=== PATIENT | female | born 1975 | race Caucasian/White ===

== ENCOUNTER → 2016-10-22 | Outpatient (CLI) | payer BC ==
[~2016-10-22] MED LIST: ABL10 PO; ACET325T96 PO; ARIP1TAB8 PO; CLC100 PO; CLON0.5T3 PO; DLD2 PO; FERR325T PO; FLUO40CA8 PO; LVNIS60 SQ; MELA3TAB PO; MELATAB2 PO; MRLP17X PO; SULF800T23 PO; WARF4TAB8 PO
--- NOTE | 2016-10-23 06:11 | PAP/PSG TECHNICIAN REPORT ---
[facility] Conche Operator Polysomnogram Report Study name: None Report date: 10/23/2016 Study date: 10/22/2016 Referring Physician: DR. SHER Name: ELINOR PONCE Interpreting Physician: Remigio Carey M.D. Date of : 1975 Conche Operator: Arlin Laboy [facility]. Sex: Female Age: 40 StudyType: PSG Weight: 151 lbs Height: 40 years, Height 5' 0" BMI: 29.49 Medications: List not provided Patient History 40 yr. old female here for a possible split with BiPap and ETC02. Patients has daytime hyper somnolence, , myotonic dystrophy type 1, and non-restorative sleep. Patients [place] sleepiness scale score is 8/24. Parameters Monitored NPSG: E1-M2, E2-M1, Fp1-M2, Fp2-M1, F3-M2, F4-M2, F4-M1, C3-M2, C4-M2, C4-M1, O1-M2, O2-M2, O2-M1, T3-M2, T4-M1, P3-M2, P4-M1, CHIN1, CHIN2, HR, EKG, Legs, PFLOW, SNOR, FLOW, CFLOW, Tidal Volume, THOR, ABDO, SpO2, PLTH, CPRESS, ETCO2 Wave, ETCO2, pH Sleep Architecture Sleep Stages Time at Lights Off 9:55:48 PM STAGES Time (min.) TST (%) Time at Lights On 5:48:48 AM Wake 156.5 -- Total Recording Time (TRT) 473.00 min. N1 41.0 13 Total Sleep Period (TSP) 400.0 min. N2 144.5 46 Total Sleep Time (TST) 316.5min. N3 95.5 30 Awake Time 156.5 min. REM 35.5 11 Wake after Sleep Onset 83.5 min. Sleep Efficiency (SE) 67 % Sleep Onset Latency (RAJESH) 73.0 min. Number of Stage 1 Shifts None Awakenings 22 Stage Changes 99 Number of REM periods 2 REM 35.5 11 REM Latency 313.0 min. NREM 281.0 89 Body Position Analysis Supine Right Left Side Prone Vertical Total Sleep Time (min.) 213.9 72.5 143.0 215.50 0.0 0.0 Total Sleep Time (%) 32% 23% 45% 68 0% N/A% Total Sleep Time REM (min.) 0.0 35.5 0.0 None 0.0 0.0 Total Sleep Time NREM (min.) 101.0 37.0 143.0 None 0.0 0.0 Intermittent Wake (min.) 112.9 0.9 42.6 None 0.0 0.0 Total Sleep Period (%) 37% None None None None None Arousals Myoclonus (PLM) * Events Count Index Events Count Index Spontaneous 9 2 Events Awake (PLMW) 67 25.7 Respiratory 1 0.2 Events Asleep w/ Arousal (PLMA) 12 2.3 PLM 11 2 Events Asleep w/o Arousal (PLMS) 120 22.7 Snoring 7 1 Total Asleep 132 25.0 Total 28 5 Total 199 25 Respiratory Analysis * CA OA MA CH H RERA Total Count 0 0 0 0 11 0 11 Index 0.0 0.0 0.0 0 2.1 0 2.1 Mean Duration 0.0 0.0 0.0 0.00 25.2 0.0 25.2 Longest Duration 0.0 0.0 0.0 0.00 0.0 0.0 45.5 Respiratory Event Summary Total Supine ~Supine Right Left Prone REM NREM Apneas Count 0 0 0 0 0 N/A 0 0 Index 0.0 0 0 0.0 0.0 N/A 0 0 Hypopneas (4% Desat) Count 11 1 10 0 10 N/A 0 11 Index 2.1 0.6 3 0.0 4.2 N/A 0.0 2.3 Apneas & All Hypopneas Count 11 1 10 0 10 N/A 0 11 Index 2.1 1 3 0 4 N/A 0.0 2.3 Respiratory Events (Railroad Brake Operator+All Hyp+RERA) Count 11 1 10 0 10 N/A 0 11 Index 2.1 1 3 0.0 4.2 N/A 0.0 2.3 Respiratory Related Arousal Count 1 1 1 0 1 N/A 0 1 Index 0.2 0 0 0 0 N/A 0 0 Snoring Analysis Supine Right Left Prone REM NREM Total Snore duration 2.7 min Snores count 46 7 24 N/A 2 75 77 Snore mean duration 2.1 Sec Snores index 27 6 10 N/A 3.4 16.0 14.6 TST with snoring (%) 0.8% SpO2 Analysis Total REM NREM Awake <50% 0.0 min. 0.0 min. 0.0 min. 0.0 min. 51 - 60% 0.0 min. 0.0 min. 0.0 min. 0.0 min. 61 - 70% 0.0 min. 0.0 min. 0.0 min. 0.0 min. 71 - 80% 0.2 min. 0.0 min. 0.0 min. 0.2 min. 81 - 90% 420.0 min. 35.5 min. 271.3 min. 113.3 min. 91 - 100% 47.1 min. 0.0 min. 9.8 min. 37.3 min. Average 88 86 88 89 Minimum SpO2 77 83 84 77 Desaturation Event Index 9.3 3.4 5.3 18.4 # Desat. Events below 89% 54 2 24 28 Time(%) with Saturation below 89% 66.0 7.6 42.4 16.1 Time(min.) with Saturation below 89% 308.5 35.5 198.0 75.0 Heart Rate Analysis End Tidal CO2 Analysis Min (bpm) Max (bpm) Average (bpm) TSP (mins) % of TSP Awake 46 265 58 Above 55 mmHg 0.0 0.0 NREM 43 62 50 50-55 mmHg 0.0 0.0 REM 49 63 55 45-50 mmHg 118.0 37.3 Overall 43 63 51 40-45 mmHg 105.8 33.4 35-40 mmHg 40.0 12.6 30-35 mmHg 42.7 13.5 Average ETCO2 0.1 Supplemental O2 Values Minimum O2 level: None Value Start Time End Time Conche Operator Comments MS. Ponce did not qualify for a split night sleep study. MS. Ponce slept in the right, left, and supine positions. No cardiac arrhythmia. PLMs noted. No bruxism noted. Snoring was noted and scored as a 1 on a scale of 0 through 5. (0=no snoring, 5=snoring loud enough to be heard through a closed door or down the [address] way)MS. Ponce awoke to use the restroom once during the night. MS. Ponce stated,I did not sleep well, I felt nauseated. The final report will be interpreted and signed by a sleep physician. The completed physician report will then be placed in the patient medical record. Therapy (cm H2O) 0 TIB (min.) 473.0 TST (min.) 316.5 Sleep Onset (min.) 73.0 REM Onset From Sleep (min.) 313.0 Sleep Efficiency % 67 Wakefulness (%) 33 Wakefulness (min.) 156.5 NREM 1 (%) 13 NREM 1 (min.) 41.0 NREM 2 (%) 46 NREM 2 (min.) 144.5 NREM 3 (%) 30 NREM 3 (min.) 95.5 REM (%) 11 REM (min.) 35.5 # Arousals 28 Arousal Index 5 # Snore 77 Snore Index 14.6 AHI 2.1 AHI Supine 1 AHI Non-Supine 3 NREM AHI 2.3 REM AHI 0.0 RDI 2.1 # Obstructive Apnea 0 # Central Apnea 0 # Mixed Apnea 0 # Hypopneas 11 RERAs 0 Total Respiratory Events 13 Time Below SpO2 89% (min.) 233.5 Mean NREM SpO2 (%) 88 Mean REM SpO2 (%) 86 Mean Sleep SpO2 (%) 88 Min NREM SpO2 (%) 84 Min REM SpO2 (%) 83 Position Supine (min.) 213.9 Position Non-supine (min.) 215.5 LM Index Sleep 25.0 LM Index NREM 25.2 LM Index REM 23.7 Mean Heart Rate (bpm) 51 Min Heart Rate (bpm) 43
--- NOTE | 2016-10-24 02:52 | POLYSOMNOGRAPH REPORT ---
CLINICAL DATA: A 40-year-old female with a BMI of 29.5, referred by Dr. Smith, her neurologist, for evaluation of daytime hypersomnolence. 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 SLEEP ARCHITECTURE: Total sleep period was 400 minutes. Total sleep time was 316.5 minutes divided between 281.5 minutes of non-REM sleep and 35.5 minutes of REM sleep. Sleep onset latency was 73 minutes. REM latency was delayed at 313 minutes. Sleep efficiency was reduced at 67%. Wake after sleep onset was elevated at 83.5 minutes. Sleep consisted of stage N1 13%, N2 46%, N3 30%, REM 11%. AROUSAL DATA: 28 arousals were recorded for an index of 5 per hour. PLM DATA: 132 limb movements during sleep were noted for an index of 25 per hour with arousal index of 3.3 per hour. RESPIRATORY DATA: There was no evidence of clinically significant sleep apnea/hypopnea. The AHI was 2.1. There were 11 hypopneic episodes. The mean duration of hypopnea was 25.2 seconds. OXIMETRY DATA: Nocturnal hypoxemia was seen. Oxygen roxann was 83% during REM sleep. Mean saturation for the entire study was 88%. EKG: Heart rates ranged from 43-63 beats per minute. No arrhythmias were noted. END-TIDAL CO2 ANALYSIS: The patient's end-tidal CO2 was between 45 and 50 mmHg for 37.3% of the study. It was not noted to be above 50 mmHg. SPECIALTY PLANT SUPERVISOR'S COMMENTS: The patient slept in the right, left and supine positions. Snoring was mild rated 1 on a scale of 1 through 5. The patient stated she did not sleep well and felt nauseated throughout the night. IMPRESSION: 1. No evidence of clinically significant sleep apnea/hypopnea. 2. Nocturnal hypoxemia was seen. 3. Mildly elevated end-tidal CO2 for a portion of the night. RECOMMENDATIONS: The patient should continue to practice good sleep hygiene. Low-flow oxygen at night may be of benefit. If it is felt that the patient's muscular dystrophy is causing her enough issues that she might consider use of BiPAP, then a sleep study with BiPAP could be considered. [facility]
== END | disposition home or self-care (01) ==
LOC: C.NEUR 21:00
PROVIDERS: ATTEND Psychiatry & Neurology Neurology
DX: G71.11 Myotonic muscular dystrophy (principal); G47.19 Other hypersomnia; R06.89 Other abnormalities of breathing; R09.02 Hypoxemia

== ENCOUNTER 2017-01-12 15:50 | Inpatient (IN) | payer BC ==
[~2017-01-12] VITALS: Ht 144.8 cm; Wt 64.6 kg
[~2017-01-12 15:50] MED LIST changes: -CLC100 PO; -DLD2 PO; +FERR1TAB62 PO; -FERR325T PO; -LVNIS60 SQ; -MELATAB2 PO; -MRLP17X PO; -SULF800T23 PO; -WARF4TAB8 PO
[2017-01-12] MEDS ORDERED: SODIUM CHLORIDE 0.9% 1000ML 1,000 ML IV STA (16:24)
[2017-01-12] MEDS ORDERED: ONDANSETRON INJ 2 MG/ML 2 ML VIAL IV STA ×2 (16:24→18:02)
[2017-01-12] MEDS ORDERED: MoRPHine SULFATE 4 MG/ML 1 ML CARP\\VIAL IV PRN (16:30)
[2017-01-12 16:48] LABS: ALT/SGPT 22 U/L (12-78); BLOOD UREA NITROGEN 6 mg/dl (7-18); BUN/CREATININE RATIO 9.7 (10-20); CALCIUM 9.7 mg/dl (8.5-10.1); CARBON DIOXIDE 25 mmol/L (21-32); CHLORIDE 114 mmol/L (98-107); CREATININE 0.66 mg/dl (0.60-1.20); GLUCOSE 84 mg/dl (70-99); POTASSIUM 4.4 mmol/L (3.5-5.1); SODIUM 145 mmol/L (136-145)
[2017-01-12 16:51] LABS: ALKALINE PHOSPHATASE 103 U/L (45-117); AST/SGOT 15 U/L (15-37)
[2017-01-12 16:56] LABS: URINE APPEARANCE CLEAR (CLEAR); URINE BILIRUBIN NEG (NEG); URINE COLOR YELLOW; URINE NITRITE NEG (NEG); URINE PH >= 9.0 (4.5-7.5); URINE SPECIFIC GRAVITY 1.006 (1.000-1.030); UROBILINOGEN NEG (NEG)
[2017-01-12 17:02] LABS: PREG INTERNAL NEGATIVE QC NEG CLEAR BACKGROUND; PREG INTERNAL POSITIVE QC POS CONTROL LINE
[2017-01-12 17:05] LABS: MANUAL MICROSCOPIC REQUIRED? NO; REVIEW REQ? NO
[2017-01-12 17:13] LABS: BASO % 0.5 %; BASO ABS # 0.02 K/uL (0-0.2); COMPLETE YES; EOS % 9.7 %; HEMATOCRIT 36.8 % (37-47); IG% 0.2 %; LARGE PLATELETS 2+; LYMPH % 30.3 %; LYMPH ABS # 1.31 K/uL (1.2-3.4); MEAN CELL VOLUME 89.1 fL (80-100); MEAN CORPUSCULAR HGB CONC 33.7 g/dl (32-36); MEAN PLATELET VOLUME 12.8 fL (7.4-10.4); MONO % 5.8 %; NEUT % 53.5 %; PLATELET COUNT 115 K/uL (130-400); PLT ESTIMATE DECREASED; RED BLOOD COUNT 4.13 M/uL (4.2-5.4); WHITE BLOOD COUNT 4.32 K/uL (4.8-10.8)
[2017-01-12] MEDS ORDERED: OPTIRAY 320 IV PRN (17:45)
[2017-01-12] MEDS ORDERED: MoRPHine SULFATE 10 MG/ML CARP/VIAL IV STA ×2 (18:02→19:37)
--- NOTE | 2017-01-12 19:16 | DIAGNOSTIC IMAGING REPORT ---
ABDOMEN AND PELVIS CT WITH IV AND ORAL CONTRAST CT DOSE: 266.64 mGy.cm HISTORY: Pain ABDOMINAL PAIN/GI TECHNIQUE: Multiaxial CT images of the abdomen and pelvis were performed following the use of intravenous and oral contrast. COMPARISON STUDY: 10/31/2013 FINDINGS: Lung bases are clear. Liver spleen and pancreas are unremarkable. There has been an interval cholecystectomy. The adrenal glands are normal. The kidneys enhance uniformly. Bowel pattern is nonobstructive. The appendix is normal. Bladder is moderately distended. Superior to the bladder is a large cystic lesion measuring 13 x 12 cm. This potentially is related to the left ovary although this cannot be confirmed. Possibility of an ovarian cystic neoplastic process must be considered. There is no significant andrea pathology. Osseous structures are unremarkable. Inguinal regions are unremarkable. IMPRESSION: 1. 13 x 12 cm cystic lesion immediately superior to the bladder. 2. Diagnostic considerations must include cystic ovarian neoplastic process versus large ovarian simple cyst,. 3. No significant andrea pathology. 4. BLACK LEATHER TRIMMER consultation is recommended. 5. Normal appendix. 6. Nonobstructive bowel pattern. Electronically signed by: Casper Bray M.D. 01/12/2017 7:14 PM Dictated Date/Time: 01/12/2017 7:06 PM
[2017-01-12] MEDS ORDERED: METOCLOPRAMIDE HCL INJ 5 MG/ML 2 ML VIAL IV STA (19:37)
--- NOTE | 2017-01-12 20:49 | DIAGNOSTIC IMAGING REPORT ---
EXAMINATION: PELVIC ULTRASOUND CLINICAL HISTORY: pelvic mass ABNORMAL CT EXAM COMPARISON STUDY: CT same date FINDINGS: The uterus measured 8.4 cm. The endometrial stripe measured 11 mm. The right ovary measured 2.9 cm with normal vascular flow. The left ovary measured not identified. 13 x 9 cm cystic mass superior to the bladder. This potentially relates to the left ovary as a left ovary is not well seen. There was no evidence of pathologic free pelvic fluid. IMPRESSION: 13 x 9 cm cystic mass superior to the bladder. This may relate to the left ovary as a left ovary is not identified as a separate entity. Differential considerations remain a large ovarian cyst versus cystic neoplastic process. Electronically signed by: Casper Bray M.D. 01/12/2017 8:47 PM Dictated Date/Time: 01/12/2017 8:44 PM
[2017-01-13] MEDS ORDERED: MAGNESIUM HYDROXIDE SUSP 30 ML UDC PO PRN
[2017-01-13] MEDS ORDERED: ACETAMINOPHEN 325 MG TAB PO PRN
[2017-01-13] MEDS ORDERED: ZOLPIDEM TARTRATE 5 MG TAB PO PRN
[2017-01-13] MEDS ORDERED: ALUMINUM/MAGNESIUM/SIMETH (MAALOX MAX) 30 ML UDC PO PRN
[2017-01-13] MEDS ORDERED: ONDANSETRON INJ 2 MG/ML 2 ML VIAL IV PRN
--- NOTE | 2017-01-13 00:38 | EMERGENCY ROOM VISIT NOTE ---
ED Visit Note First contact with patient: 16:00 Chief Complaint: Abdominal pain and vomiting. History of Present Illness: Ms. Davidson is a 41 year-old white female who ambulates into the ED complaining of nausea, vomiting and diffuse abdominal pain. Historically patient reports reports she is status post cholecystectomy and has a history of GERD Patient reports a acute onset of diffuse abdominal pain that started approximately 4 days ago. She reports the pain and the associated vomiting was constant for 2 days then resolved for 2 days and started again this morning. She describes her pain as a sharp and crampy sensation in the mid abdomen just superior to the umbilicus. She denies true radiation of her discomfort but does report intermittently she gets a burning discomfort from the epigastrium into the back of the throat. She currently rates her discomfort 7/10. Her pain worsens with eating and drinking. She has not identified any alleviating factors related to the pain. She has attempted to take ibuprofen without relief of her discomfort. Associated with her discomfort she reports she's had multiple episodes of bilious vomiting and multiple episodes of light brown watery stools with a few pieces of formed stool. She denies fevers, chills, sweats, skin eruptions, skin color changes, upper respiratory tract symptoms, shortness of breath, chest pain, constipation, rectal bleeding, black/tarry stools, urinary symptoms, hematuria, vaginal bleeding, vaginal discharge, back/ flank pain recent antibiotic use or recent travel outside the [place]. Review of Systems: As noted above in history of present illness. All body systems were reviewed and found to be negative as noted above. Past Medical History: As noted above and pneumonia, DVT, unspecified urinary problems, myotonic muscular dystrophy, factor V Leiden disorder, bulimia, depression, and status post cataract surgery, tonsillectomy, adenoidectomy. Current Medications: Medications Dose Route/Sig Max Daily Dose Days Date Category Dose Instructions Melatonin Maximum Strengt (Melatonin) 5 Mg Tab 1 Tab PO HS 30 01/12/17 Reported Jantoven (Warfarin Sodium) 4 Mg Tab 8 Mg PO 4XWK 12/29/15 Reported THURSDAY, THURSDAY, THURSDAY, THURSDAY. Jantoven (Warfarin Sodium) 4 Mg Tab 12 Mg PO 3XWK 12/29/15 Reported THURSDAY, THURSDAY, THURSDAY Tylenol (Acetaminophen) 325 Mg Tab 650 Mg PO UD 12/03/15 Reported Prozac (Fluoxetine HCl) 40 Mg Cap 40 Mg PO QAM 09/26/15 Reported Allergies to Medications: Hydrocodone, penicillin. Social History: Patient is currently employed; she lives with her and feels safe in her home environment; she denies tobacco use and admits to social alcohol use. Physical Examination: Vital Signs: Date Time Temp Pulse Resp B/P Pulse Ox O2 Delivery O2 Flow Rate FiO2 01/12/17 19:54 65 16 107/68 100 Room Air 01/12/17 18:08 58 16 113/71 100 Room Air 01/12/17 16:32 72 16 103/65 100 60 93/67 73 91/71 01/12/17 15:55 36.9 55 18 117/71 99 Room Air GENERAL: 41-year-old female in mild to moderate distress due to pain, nontoxic- appearing, afebrile and hemodynamically stable. NEUROLOGICAL: Awake, alert and oriented to person, place and time. Answering questions appropriately and following commands. Normal gait. Good hand eye coordination. SKIN: Warm, dry and pink. No soft tissue eruptions or trauma noted. HEENT: Atraumatic and normocephalic. PERRL. Sclera white and conjunctiva pink. Oral cavity moist and pink. Pharynx is nonerythematous or edematous. Speech normal. No lymphadenopathy. Trachea midline. No jugular venous distention. BACK: No tenderness over the bony spine. No CVA tenderness. THORAX: Lungs sounds are clear to auscultation and equal bilaterally with symmetrical chest wall. No wheezing, rales or rhonchi. No crepitus, tenderness , subcutaneous air or deformities noted. HEART: Regular rate and rhythm. No gallops, rubs or murmurs are appreciated. ABDOMEN: Flat and soft with mild tenderness just superior to the umbilicus in the midline and in the right lower quadrant. There is distention of the abdomen. Positive bowel sounds in all quadrants. No guarding, rigidity or organomegaly. EXTREMITIES: Moves all extremities well on command and with purpose. All distal neurovascular statuses are intact and equal bilaterally. ED Course: Patient is assessed as noted above. Laboratory Testing: Test 01/12/17 16:20 01/12/17 16:41 Range/Units White Blood Count 4.32 4.8-10.8 K/uL Red Blood Count 4.13 4.2-5.4 M/uL Hemoglobin 12.4 12.0-16.0 g/dL Hematocrit 36.8 37-47 % Mean Corpuscular Volume 89.1 80-100 fL Mean Corpuscular Hemoglobin 30.0 25-34 pg Mean Corpuscular Hemoglobin Concent 33.7 32-36 g/dl Platelet Count 115 130-400 K/uL Mean Platelet Volume 12.8 7.4-10.4 fL Neutrophils (%) (Auto) 53.5 % Lymphocytes (%) (Auto) 30.3 % Monocytes (%) (Auto) 5.8 % Eosinophils (%) (Auto) 9.7 % Basophils (%) (Auto) 0.5 % Neutrophils # (Auto) 2.31 1.4-6.5 K/uL Lymphocytes # (Auto) 1.31 1.2-3.4 K/uL Monocytes # (Auto) 0.25 0.11-0.59 K/uL Eosinophils # (Auto) 0.42 0-0.5 K/uL Basophils # (Auto) 0.02 0-0.2 K/uL RDW Standard Deviation 56.1 36.4-46.3 fL RDW Coefficient of Variation 17.1 11.5-14.5 % Immature Granulocyte % (Auto) 0.2 % Immature Granulocyte # (Auto) 0.01 0.00-0.02 K/uL Platelet Estimate DECREASED Large Platelets 2+ Sodium Level 145 136-145 mmol/L Potassium Level 4.4 3.5-5.1 mmol/L Chloride Level 114 98-107 mmol/L Carbon Dioxide Level 25 21-32 mmol/L Anion Gap 6.0 3-11 mmol/L Blood Urea Nitrogen 6 7-18 mg/dl Creatinine 0.66 0.60-1.20 mg/dl Est Creatinine Clear Calc Drug Dose 86.0 ml/min Estimated GFR () 129.0 Estimated GFR (Non- 111.3 BUN/Creatinine Ratio 9.7 10-20 Random Glucose 84 70-99 mg/dl Calcium Level 9.7 8.5-10.1 mg/dl Total Bilirubin 0.4 0.2-1 mg/dl Direct Bilirubin < 0.1 0-0.2 mg/dl Aspartate Amino Transf (AST/SGOT) 15 15-37 U/L Alanine Aminotransferase (ALT/SGPT) 22 12-78 U/L Alkaline Phosphatase 103 45-117 U/L Total Protein 7.0 6.4-8.2 gm/dl Albumin 3.3 3.4-5.0 gm/dl Lipase 245 73-393 U/L Human Chorionic Gonadotropin, Qual NEG NEG Urine Color YELLOW Urine Appearance CLEAR CLEAR Urine pH >= 9.0 4.5-7.5 Urine Specific Sunset 1.006 1.000-1.030 Urine Protein NEG NEG Urine Glucose (UA) NEG NEG Urine Ketones NEG NEG Urine Occult Blood NEG NEG Urine Nitrite NEG NEG Urine Bilirubin NEG NEG Urine Urobilinogen NEG NEG Urine Leukocyte Esterase NEG NEG Contrast Abdominal/Pelvic CT: Was reviewed by myself and read by the radiologist and shows a 13 x 12 cystic lesion immediately superior to the bladder of questionable etiology, no significant notable pathology, normal- appearing appendix and a nonobstructive bowel gas pattern. Pelvic Ultrasound: Was reviewed by myself and read by the radiologist showing a 13 x 9 cm cystic mass superior to the bladder. Radiologist reports that the left ovary was not visible as a separate entity on this examination. Patient was hydrated with normal saline and she received a total of 60 mg of morphine IV for pain, total of 8 mg of Zofran IV and 10 mg of Reglan IV for nausea. Patient was reassessed multiple times during her stay in the emergency department. Patient's case was reviewed with Dr. Bower; we agreed on diagnostic approach , treatment, disposition and plan. Patient's case was consulted with case management and Dr. Silva, hospitalist, for medical observation/admission. Patient was educated on tonight's findings. Clinical Impression: Acute abdominal pain. Large abdominal mass. Nausea/ vomiting/diarrhea. Decision-Making: Initially my differential diagnosis I considered gastroenteritis, colitis, bowel obstruction, ovarian torsion, ectopic , ruptured ovarian cyst and other causes. Disposition and Plan: Patient be brought in the hospital by Dr. Silva; please see her notes and orders for final disposition and plan.
[2017-01-13 00:45] VITALS: Ht 144.8 cm; Wt 64.6 kg
[2017-01-13] MEDS ORDERED: POLYETHYLENE (MIRALAX) 17 GM PACK PO PRN (00:45)
[2017-01-13 00:49] LABS: PROTHROMBIN TIME (PATIENT) 10.9 SECONDS (9.0-12.0)
[2017-01-13] MEDS ORDERED: HEPARIN SOD 5000 UNIT/0.5 ML CARP SQ SCH (06:00)
--- NOTE | 2017-01-13 06:22 | History and Physical ---
History & Physical Date & Time of Service: Jan 13, 2017 at 06:21 Chief Complaint: Abdominal Mass, Abdominal Pain Primary Care Physician: Rell Michelle M.D. History of Present Illness Source: patient This is a 41 yo F with past medical hx of Myotonic muscular dystrophy , Factor V Leiden deficiency , Hx of PE , on Coumadin presented to ED with complain of Nausea /Vomiting /Diarrhea started last Thursday Pt mentions of having vomiting 10 times a day , unable to keep any thing down, diffuse lower abdominal pain Loose stool , denies of any sick contact, no travel hx , no other member of house hold had similar symptom pt mentions of having episodes of chills but no fever no urinary symptoms felt well over the weekend Thursday -developed severe crampy abdominal pain radiation to back in the ER her labs were unremarkable , except for INR being sub therapeutic UA -negative CT abdomen /pelvis shows : 13 x 9 cm cystic mass superior to the bladder. This may relate to the left ovary as a left ovary is not identified as a separate entity. Differential considerations remain a large ovarian cyst versus cystic neoplastic process. 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 (10) Muscular dystrophy Status: Chronic (11) Pulmonary embolism Status: Resolved (12) Tonsillectomy and adenoidectomy Status: Resolved Family History FH: cancer Hypertension Social History Smoking Status: Never Smoker Marital Status: Housing status: lives with family Occupational Status: employed, [employer] student Immunizations History of Influenza Vaccine: N/A Influenza Vaccine Date: Jul 15, 2011 History of Tetanus Vaccine?: utd Tetanus Immunization Date: Oct 07, 2009 History of Pneumococcal: Yes Pneumococcal Date: Sep 03, 2000 History of Hepatitis B Vaccine: Unknown Multi-Drug Resistant Organisms History of MDRO: No Allergies Coded Allergies: Hydrocodone (Verified Allergy, Mild, RASH, 01/12/17) Molds and Smuts (Verified Allergy, Mild, 01/12/17) Penicillins (Verified Allergy, Mild, RASH, 01/12/17) Chicken Allergy (Verified Allergy, Unknown, Mild allergy to chicken products, 01/12/17) Chicken Meat (Verified Allergy, Unknown, Mild allergy to chicken products , 01/12/17) Home Medications Scheduled Acetaminophen Tab (Tylenol), 650 MG PO UD Fluoxetine (Prozac), 40 MG PO QAM Melatonin (Melatonin Maximum Strengt), 1 TAB PO HS Warfarin Sod (Jantoven), 12 MG PO 3XWK Warfarin Sod (Jantoven), 8 MG PO 4XWK Review of Systems Constitutional: + chills, + fatigue, + weakness Abdomen: + diarrhea, + nausea, + vomiting Musculoskeletal: No calf pain, No joint pain, No muscle pain, No problem reported, No swelling Genitourinary - Female: No dysmenorrhea, No dysuria, No hematuria, No menorrhagia, No metrorrhagia, No , No problem reported, No rash, No urinary frequency, No urinary incontinence, No urinary retention, No urinary urgency, No vaginal bleeding, No vaginal discharge, No vaginal itching, No vulvodynia Neurologic: No balance problems, No memory loss, No numbness/tingling, No paralysis, No problem reported, No vertigo, No weakness Endocrine: No excessive thirst, No excessive urination, No fatigue, No problem reported Physical Exam Vital Signs Date Time Temp Pulse Resp B/P Pulse Ox O2 Delivery O2 Flow Rate FiO2 01/13/17 00:45 Room Air 01/13/17 00:45 Room Air 01/12/17 21:18 58 16 97/56 92 Room Air 01/12/17 19:54 65 16 107/68 100 Room Air 01/12/17 18:08 58 16 113/71 100 Room Air 01/12/17 16:32 72 16 103/65 100 60 93/67 73 91/71 01/12/17 15:55 36.9 55 18 117/71 99 Room Air General Appearance: no apparent distress Head: normocephalic, atraumatic Eyes: sclerae normal Neck: supple, trachea midline Respiratory/Chest: chest non-tender, lungs clear, normal breath sounds, no respiratory distress Cardiovascular: regular rate, rhythm Abdomen/GI: normal bowel sounds, soft, + pertinent finding (let lower quadrant tenderness on palpation ,no rebound ) Extremities/Musculoskelatal: normal inspection, no calf tenderness, normal capillary refill, no pedal edema Neurologic/Psych: no motor/sensory deficits, alert, normal mood/affect, oriented x 3 Skin: normal color, warm/dry, no rash Diagnostics Laboratory Results Results Past 24 Hours Test 01/12/17 16:20 01/12/17 16:41 Range/Units White Blood Count 4.32 4.8-10.8 K/uL Red Blood Count 4.13 4.2-5.4 M/uL Hemoglobin 12.4 12.0-16.0 g/dL Hematocrit 36.8 37-47 % Mean Corpuscular Volume 89.1 80-100 fL Mean Corpuscular Hemoglobin 30.0 25-34 pg Mean Corpuscular Hemoglobin Concent 33.7 32-36 g/dl Platelet Count 115 130-400 K/uL Mean Platelet Volume 12.8 7.4-10.4 fL Neutrophils (%) (Auto) 53.5 % Lymphocytes (%) (Auto) 30.3 % Monocytes (%) (Auto) 5.8 % Eosinophils (%) (Auto) 9.7 % Basophils (%) (Auto) 0.5 % Neutrophils # (Auto) 2.31 1.4-6.5 K/uL Lymphocytes # (Auto) 1.31 1.2-3.4 K/uL Monocytes # (Auto) 0.25 0.11-0.59 K/uL Eosinophils # (Auto) 0.42 0-0.5 K/uL Basophils # (Auto) 0.02 0-0.2 K/uL RDW Standard Deviation 56.1 36.4-46.3 fL RDW Coefficient of Variation 17.1 11.5-14.5 % Immature Granulocyte % (Auto) 0.2 % Immature Granulocyte # (Auto) 0.01 0.00-0.02 K/uL Platelet Estimate DECREASED Large Platelets 2+ Prothrombin Time 10.9 9.0-12.0 SECONDS Prothromb Time International Ratio 1.0 0.9-1.1 Sodium Level 145 136-145 mmol/L Potassium Level 4.4 3.5-5.1 mmol/L Chloride Level 114 98-107 mmol/L Carbon Dioxide Level 25 21-32 mmol/L Anion Gap 6.0 3-11 mmol/L Blood Urea Nitrogen 6 7-18 mg/dl Creatinine 0.66 0.60-1.20 mg/dl Est Creatinine Clear Calc Drug Dose 86.0 ml/min Estimated GFR () 129.0 Estimated GFR (Non- 111.3 BUN/Creatinine Ratio 9.7 10-20 Random Glucose 84 70-99 mg/dl Calcium Level 9.7 8.5-10.1 mg/dl Total Bilirubin 0.4 0.2-1 mg/dl Direct Bilirubin < 0.1 0-0.2 mg/dl Aspartate Amino Transf (AST/SGOT) 15 15-37 U/L Alanine Aminotransferase (ALT/SGPT) 22 12-78 U/L Alkaline Phosphatase 103 45-117 U/L Total Protein 7.0 6.4-8.2 gm/dl Albumin 3.3 3.4-5.0 gm/dl Lipase 245 73-393 U/L Human Chorionic Gonadotropin, Qual NEG NEG Urine Color YELLOW Urine Appearance CLEAR CLEAR Urine pH >= 9.0 4.5-7.5 Urine Specific [place] 1.006 1.000-1.030 Urine Protein NEG NEG Urine Glucose (UA) NEG NEG Urine Ketones NEG NEG Urine Occult Blood NEG NEG Urine Nitrite NEG NEG Urine Bilirubin NEG NEG Urine Urobilinogen NEG NEG Urine Leukocyte Esterase NEG NEG Diagnostic Radiology ABDOMEN AND PELVIS CT WITH IV AND ORAL CONTRAST COMPARISON STUDY: 10/31/2013 IMPRESSION: 1. 13 x 12 cm cystic lesion immediately superior to the bladder. 2. Diagnostic considerations must include cystic ovarian neoplastic process versus large ovarian simple cyst,. 3. No significant andrea pathology. 4. BULLDOZER/LOADER/COMPACTOR/SCRAPER consultation is recommended. 5. Normal appendix. 6. Nonobstructive bowel pattern. EXAMINATION: PELVIC ULTRASOUND CLINICAL HISTORY: pelvic mass ABNORMAL CT EXAM COMPARISON STUDY: CT same date FINDINGS: The uterus measured 8.4 cm. The endometrial stripe measured 11 mm. The right ovary measured 2.9 cm with normal vascular flow. The left ovary measured not identified. 13 x 9 cm cystic mass superior to the bladder. This potentially relates to the left ovary as a left ovary is not well seen. There was no evidence of pathologic free pelvic fluid. IMPRESSION: 13 x 9 cm cystic mass superior to the bladder. This may relate to the left ovary as a left ovary is not identified as a separate entity. Differential considerations remain a large ovarian cyst versus cystic neoplastic process. Impression Assessment and Plan NAUSEA /VOMITING /DIARRHEA : possible viral gastroenteritis symptom resolved on it self able to tolerate regular diet UA negative ordered stool culture , stool for C diff ABDOMINAL PAIN /OVARIAN MASS : incidental finding possible causing pain and discomfort in lower abdomen /mostly LLQ CT abdomen /pelvis and Pelvic USG as above 13 x 9 cm cystic mass superior to the bladder. This may relate to the left ovary as a left ovary is not identified as a separate entity. Differential considerations remain a large ovarian cyst versus cystic neoplastic process. Family hx : Grand mother had ovarian CA tumor marker sent Supplier Relationship Director and heme onc consult requested FACTOR V LEIDEN DEFICIENCY : hx of PE with saddle emboli in past on Coumadin INR sub therapeutic 1.1 on admission pt mentions could not take Coumadin past 1 week due to GI symptom Coumadin resumed Lovenox bridge till INR therapeutic MUSCULAR DYSTROPHY Myotonic Muscular Dystrophy Dx at age 7 Follows with Neurology at [facility] independent in her ambulation and activities does not require any assistive device THROMBOCYTOPENIA chronic had prior evaluation with Dr Sellers -idiopathic follow CBC while on Lovenox bridge therapy FULL CODE DVT PROPHYLAXIS : Coumadin Lovenox bridge till INR therapeutic DISPOSITION : Discharge home when medically stable Medicine follow up with Dr Michelle Needs close follow up with Supplier Relationship Director /Oncology for ovarian mass Level of Care Med/Surg Advanced Directives Existing Living Will: No Existing Power of Public Policy Associate: No Resuscitation Status FULL RESUSCITATION VTE Prophylaxis VTE Risk Assessment Done? Y/N: Yes Risk Level: Moderate Given or contraindicated: Enoxaparin (Lovenox)SQ, Warfarin (Coumadin) Note In my clinical judgment this beneficiary meets acute admission criteria, established by [facility], that includes being hospitalized through two midnights. Additional Copies To Rell Michelle M.D.
[2017-01-13 07:14] VITALS: BP 95/63; PULSE 69; TEMP 37.4; O2SAT 99
[2017-01-13] MEDS ORDERED: OXYCODONE/ACETAMINOPHEN 5-325 TAB PO PRN (11:00)
[2017-01-13] MEDS ORDERED: ENOXAPARIN 60 MG/0.6 ML SYR SQ SCH (13:00)
[2017-01-13] MEDS: FLUOXETINE HCL 20 MG CAP PO SCH (13:12)
[2017-01-13] MEDS: ENOXAPARIN 60 MG/0.6 ML SYR SQ SCH ×2 (13:13→22:22)
--- NOTE | 2017-01-13 15:50 | ONCOLOGY CONSULTATION ---
DATE OF CONSULTATION: 01/13/2017 CONSULTATION WAS REQUESTED BY: Dr. iSlva. REASON FOR CONSULTATION: Ovarian tumor. HISTORY OF PRESENT ILLNESS: Ms. Davidson is a 41-year-old woman just admitted to [facility] today with complaints of abdominal pain, nausea, emesis, and diarrhea, since last week. As part of her initial evaluation, a CT scan of the abdomen and pelvis was performed. This showed a 13 x 12 cm cystic lesion immediately superior to the bladder. A pelvic ultrasound was then performed and this was felt to possibly represent the left ovary as the left ovary could not be identified. At the present time, I have nothing to offer in her workup. Appropriate testing has been requested. MAORI PHYSIOTHERAPIST consultation has been requested. A CA-125 tumor antigen is pending. Even if that returned returns negative, MAORI PHYSIOTHERAPIST surgery may be required to remove this cystic mass anyway. I would defer to the MAORI PHYSIOTHERAPIST service regarding the need for surgery. I have seen Ms. Davidson in the past. Last time I saw her was in October 2012. She carries a diagnosis of heterozygous factor V Leiden and is on chronic Coumadin therapy for that. I am not following her clinically as she receives her care from her family physician. I will follow along while she remains hospitalized. I do not plan to see her in consultation as I have nothing to offer at this time. If surgery is performed and a diagnosis of cancer is made, then I will be very happy to see her. REYNA
[2017-01-13] MEDS ORDERED: WARFARIN SOD 4 MG TAB PO SCH (16:00)
[2017-01-13 16:07] VITALS: BP 104/69; PULSE 71; TEMP 36.7; O2SAT 95
--- NOTE | 2017-01-13 18:52 | Progress Note ---
Subjective Date of Service: Jan 13, 2017. Subjective Pt evaluation today including: conversation w/ patient, physical exam, lab review, review of studies, review of inpatient medication list Saw/examined the patient in room 402 Doing well right now; her nausea/vomiting have improved No significant abdominal pain No dysuria/hematuria Problem List Medical Problems: (1) Depression Status: Acute (2) Depression Status: Acute (3) Mood disorder Status: Acute (4) Noncompliance with medication regimen Status: Acute (5) Right leg paresthesias Status: Acute (6) Suicidal ideation Status: Acute (7) Suicidal ideation Status: Acute (8) Suicidal ideation Status: Acute Review of Systems Constitutional: No chills, No fever Respiratory: No shortness of breath Cardiac: No chest pain Abdomen: + nausea, + vomiting, No diarrhea, No pain Heme: No abnormal bleeding/bruising Medications Current Inpatient Medications Medications (Trade) Dose Ordered Sig/Yas Route Start Time Stop Time Status Last Admin Dose Admin Ioversol (Optiray 320) 100 ml UD PRN IV 01/12/17 17:45 01/16/17 17:44 Hydromorphone HCl (Dilaudid Inj) 1 mg Q4 PRN IV 01/12/17 20:45 01/26/17 20:44 Hydromorphone HCl (Dilaudid Inj) 2 mg Q4 PRN IV 01/12/17 20:45 01/26/17 20:44 Acetaminophen (Tylenol Tab) 650 mg Q4H PRN PO 01/13/17 00:00 02/12/17 00:00 Al Hydrox/Mg Hydrox/Simethicone (Maalox Max Susp) 15 ml Q4H PRN PO 01/13/17 00:00 02/12/17 00:00 Magnesium Hydroxide (Milk Of Magnesia Susp) 30 ml Q6H PRN PO 01/13/17 00:00 02/12/17 00:00 Polyethylene (Miralax Powder Packet) 17 gm DAILY PRN PO 01/13/17 00:45 02/12/17 00:44 Zolpidem Tartrate (Ambien Tab) 5 mg HSZ PRN PO 01/13/17 00:00 02/12/17 00:00 Ondansetron HCl (Zofran Inj) 4 mg Q6H PRN IV 01/13/17 00:00 02/12/17 00:00 Fluoxetine HCl (Prozac Cap) 40 mg QAM PO 01/13/17 13:00 02/12/17 12:59 01/13/17 13:12 40 MG Warfarin Sodium (Coumadin Tab) 8 mg SuTuThSa@1600 PO 01/13/17 16:00 02/12/17 15:59 01/13/17 16:35 8 MG Warfarin Sodium (Coumadin Tab) 12 mg MoWeFr@1600 PO 01/14/17 16:00 02/13/17 15:59 Oxycodone/ Acetaminophen (Percocet 5-325mg Tab) 1 tab Q4H PRN PO 01/13/17 11:00 01/27/17 10:59 Oxycodone/ Acetaminophen (Percocet 5-325mg Tab) 2 tab Q4H PRN PO 01/13/17 11:00 01/27/17 10:59 Miscellaneous Information (Order Awaiting Action) 1 ea QS N/A 01/13/17 16:00 02/12/17 15:59 Enoxaparin Sodium (Lovenox Inj) 60 mg Q12@1100,2300 SQ 01/13/17 13:00 02/12/17 12:59 01/13/17 13:13 60 MG Objective Vital Signs Date Time Temp Pulse Resp B/P Pulse Ox O2 Delivery O2 Flow Rate FiO2 01/13/17 16:18 Room Air 01/13/17 16:07 36.7 71 18 104/69 95 Room Air 01/13/17 09:10 Room Air 01/13/17 07:14 37.4 69 18 95/63 99 Room Air 01/13/17 00:45 Room Air 01/13/17 00:45 Room Air 01/12/17 21:18 58 16 97/56 92 Room Air 01/12/17 19:54 65 16 107/68 100 Room Air Physical Exam General Appearance: no apparent distress Respiratory/Chest: lungs clear, normal breath sounds, no respiratory distress, no accessory muscle use Cardiovascular: regular rate, rhythm, no edema, no murmur Abdomen: normal bowel sounds, non tender, soft Extremities: normal inspection, no pedal edema Neurologic/Psychiatric: no motor/sensory deficits, alert, normal mood/affect Assessment and Plan This is a 41 year old female with PMH of muscular dystrophy, chronic thrombocytopenia, Factor V Leiden mutation, hx. of PE on Coumadin presented with worsening nausea/vomiting and subsequently found to have cystic mass superior to the bladder Cystic Mass patient had an abdominal/pelvic CT showing a cystic mass Pelvic U/S performed also showing this pain symptoms: nausea/vomiting, which have resolved CA-125 pending will need biopsy gynecological consultation pending Factor V Leiden mutation Hx. of PE patient is on chronic Coumadin could not take this due to nausea/vomiting currently on Lovenox 1mg/kg BID - continue this INR = 1.1 continue Coumadin and recheck INR in AM Chronic Thrombocytopenia platelets always run around ~100 has followed with hematology in the past no additional w/up needed at this time DVT ppx Lovenox FULL CODE
[2017-01-13] MEDS ORDERED: NON-FORMULARY MEDICATION (Melatonin (Melatonin Maximum Strengt) 1 TAB) PO SCH (21:00)
[2017-01-13] MEDS ORDERED: NURSING VERBAL MED ORDER ONE (22:30)
[2017-01-13 23:05] VITALS: BP 100/67; PULSE 61; TEMP 37.2; O2SAT 91
[2017-01-13] MEDS: ONDANSETRON 8MG OD TAB PO PRN (23:21)
[2017-01-14 06:01] LABS: PROTHROMBIN TIME (PATIENT) 10.7 SECONDS (9.0-12.0)
[2017-01-14 06:21] LABS: BUN/CREATININE RATIO 19.5 (10-20); CALCIUM 9.3 mg/dl (8.5-10.1); CREATININE 0.72 mg/dl (0.60-1.20); HEMATOCRIT 34.4 % (37-47); MEAN CELL VOLUME 91.2 fL (80-100); MEAN CORPUSCULAR HEMOGLOBIN 29.4 pg (25-34); MEAN CORPUSCULAR HGB CONC 32.3 g/dl (32-36); MEAN PLATELET VOLUME 11.8 fL (7.4-10.4); PLATELET COUNT 91 K/uL (130-400); RED BLOOD COUNT 3.77 M/uL (4.2-5.4); WHITE BLOOD COUNT 3.96 K/uL (4.8-10.8)
[2017-01-14 06:24] LABS: PLT ESTIMATE DECREASED
[2017-01-14 07:58] VITALS: BP 102/68; PULSE 48; TEMP 36.5; O2SAT 94
[2017-01-14] MEDS: FLUOXETINE HCL 20 MG CAP PO SCH (08:40)
[2017-01-14] MEDS: ONDANSETRON 8MG OD TAB PO PRN ×2 (10:24→18:27)
[2017-01-14] MEDS: ENOXAPARIN 60 MG/0.6 ML SYR SQ SCH (12:11)
--- NOTE | 2017-01-14 15:36 | Progress Note ---
Subjective Date of Service: Jan 14, 2017. Subjective Pt evaluation today including: conversation w/ patient, physical exam, lab review, review of studies, review of inpatient medication list Saw/examined the patient in room 402 +nausea, vomiting late last night and this morning could not tolerate PO intake this morning +abdominal pain, more on the left flank area Problem List Medical Problems: (1) Depression Status: Acute (2) Depression Status: Acute (3) Mood disorder Status: Acute (4) Noncompliance with medication regimen Status: Acute (5) Right leg paresthesias Status: Acute (6) Suicidal ideation Status: Acute (7) Suicidal ideation Status: Acute (8) Suicidal ideation Status: Acute Review of Systems Constitutional: No chills, No fever, No weakness Respiratory: No shortness of breath Cardiac: No chest pain Abdomen: + nausea, + pain, + see HPI, + vomiting, No GI bleeding, No constipation, No diarrhea Heme: No abnormal bleeding/bruising Medications Current Inpatient Medications Medications (Trade) Dose Ordered Sig/Yas Route Start Time Stop Time Status Last Admin Dose Admin Ioversol (Optiray 320) 100 ml UD PRN IV 01/12/17 17:45 01/16/17 17:44 Hydromorphone HCl (Dilaudid Inj) 1 mg Q4 PRN IV 01/12/17 20:45 01/26/17 20:44 Hydromorphone HCl (Dilaudid Inj) 2 mg Q4 PRN IV 01/12/17 20:45 01/26/17 20:44 Acetaminophen (Tylenol Tab) 650 mg Q4H PRN PO 01/13/17 00:00 02/12/17 00:00 Al Hydrox/Mg Hydrox/Simethicone (Maalox Max Susp) 15 ml Q4H PRN PO 01/13/17 00:00 02/12/17 00:00 Magnesium Hydroxide (Milk Of Magnesia Susp) 30 ml Q6H PRN PO 01/13/17 00:00 02/12/17 00:00 Polyethylene (Miralax Powder Packet) 17 gm DAILY PRN PO 01/13/17 00:45 02/12/17 00:44 Zolpidem Tartrate (Ambien Tab) 5 mg HSZ PRN PO 01/13/17 00:00 02/12/17 00:00 Ondansetron HCl (Zofran Inj) 4 mg Q6H PRN IV 01/13/17 00:00 02/12/17 00:00 Fluoxetine HCl (Prozac Cap) 40 mg QAM PO 01/13/17 13:00 02/12/17 12:59 01/14/17 08:40 40 MG Warfarin Sodium (Coumadin Tab) 8 mg SuTuThSa@1600 PO 01/13/17 16:00 02/12/17 15:59 01/13/17 16:35 8 MG Warfarin Sodium (Coumadin Tab) 12 mg MoWeFr@1600 PO 01/14/17 16:00 02/13/17 15:59 Oxycodone/ Acetaminophen (Percocet 5-325mg Tab) 1 tab Q4H PRN PO 01/13/17 11:00 01/27/17 10:59 Oxycodone/ Acetaminophen (Percocet 5-325mg Tab) 2 tab Q4H PRN PO 01/13/17 11:00 01/27/17 10:59 Miscellaneous Information (Order Awaiting Action) 1 ea QS N/A 01/13/17 16:00 02/12/17 15:59 Enoxaparin Sodium (Lovenox Inj) 60 mg Q12@1100,2300 SQ 01/13/17 13:00 02/12/17 12:59 01/14/17 12:11 60 MG Ondansetron HCl (Zofran Odt) 8 mg Q8H PRN PO 01/13/17 23:00 02/12/17 22:59 01/14/17 10:24 8 MG Objective Vital Signs Date Time Temp Pulse Resp B/P Pulse Ox O2 Delivery O2 Flow Rate FiO2 01/14/17 08:30 Room Air 01/14/17 07:58 36.5 48 20 102/68 94 Room Air 01/14/17 00:00 Room Air 01/13/17 23:05 37.2 61 18 100/67 91 Room Air 01/13/17 16:18 Room Air 01/13/17 16:07 36.7 71 18 104/69 95 Room Air Physical Exam General Appearance: no apparent distress Respiratory/Chest: no respiratory distress, no accessory muscle use Abdomen: + abnormal bowel sounds (hyperactive bowel sounds), + tenderness ( diffusely, worse at the left), + pertinent finding Extremities: normal inspection, no pedal edema Neurologic/Psychiatric: no motor/sensory deficits, alert, normal mood/affect Laboratory Results Last 24 Hours Test 01/14/17 05:18 White Blood Count 3.96 K/uL Red Blood Count 3.77 M/uL Hemoglobin 11.1 g/dL Hematocrit 34.4 % Mean Corpuscular Volume 91.2 fL Mean Corpuscular Hemoglobin 29.4 pg Mean Corpuscular Hemoglobin Concent 32.3 g/dl RDW Standard Deviation 56.9 fL RDW Coefficient of Variation 16.9 % Platelet Count 91 K/uL Mean Platelet Volume 11.8 fL Platelet Estimate DECREASED Prothrombin Time 10.7 SECONDS Prothromb Time International Ratio 1.0 Sodium Level 146 mmol/L Potassium Level 4.0 mmol/L Chloride Level 112 mmol/L Carbon Dioxide Level 28 mmol/L Anion Gap 6.0 mmol/L Blood Urea Nitrogen 14 mg/dl Creatinine 0.72 mg/dl Est Creatinine Clear Calc Drug Dose 78.8 ml/min Estimated GFR () 122.3 Estimated GFR (Non- 105.5 BUN/Creatinine Ratio 19.5 Random Glucose 94 mg/dl Calcium Level 9.3 mg/dl Assessment and Plan This is a 41 year old female with PMH of muscular dystrophy, chronic thrombocytopenia, Factor V Leiden mutation, hx. of PE on Coumadin presented with worsening nausea/vomiting and subsequently found to have cystic mass superior to the bladder Cystic Mass 01/14 appreciate oncology evaluation will await AUTOMOTIVE COLLISION REPAIR INSTRUCTOR input due to worsening nausea/vomiting, will go back to clears and see if she tolerates that Zofran PRN 01/13 patient had an abdominal/pelvic CT showing a cystic mass Pelvic U/S performed also showing this pain symptoms: nausea/vomiting, which have resolved CA-125 pending will need biopsy gynecological consultation pending Factor V Leiden mutation Hx. of PE 01/14 continue Lovenox to Coumadin 01/13 patient is on chronic Coumadin could not take this due to nausea/vomiting currently on Lovenox 1mg/kg BID - continue this INR = 1.0 continue Coumadin and recheck INR in AM Chronic Thrombocytopenia platelets always run around ~100 has followed with hematology in the past no additional w/up needed at this time DVT ppx Lovenox FULL CODE
[2017-01-14 15:39] VITALS: BP 104/73; PULSE 60; TEMP 36.7; O2SAT 91
[2017-01-14] MEDS ORDERED: WARFARIN SOD 4 MG TAB PO SCH (16:00)
[2017-01-14] MEDS ORDERED: NURSING VERBAL MED ORDER ONE (16:30)
--- NOTE | 2017-01-14 16:38 | CONSULTATION REPORT ---
DATE OF CONSULTATION: 01/14/2017 REASON FOR CONSULTATION: Left-sided pelvic mass. HISTORY OF PRESENT ILLNESS: The patient is a 41-year-old white female, 0, para 0 LMP 12/08/16 who presents with a several day history of nausea and vomiting that started last Thursday, repetitively vomiting several times per day associated with diffuse generalized lower abdominal pain on both the right and left lower quadrant. Denies any history of any problems in the past with either pain or nausea or vomiting similar to presentation. The patient states that the pain is somewhat better today. She has been eating and tolerating her diet, although yesterday and today she was switched to clear liquids after she vomited this AM. PAST MEDICAL HISTORY: Positive for myotonic dystrophy, traumatic brain injury, factor V Leiden heterozygous, reflux disease, bilateral pulmonary embolism, Maty-Dale syndrome, muscular dystrophy and depression. PAST SURGICAL HISTORY: Positive for cholecystectomy, tonsils and adenoids, right breast lumpectomy, eyelid surgery bilateral. ALLERGIES: INCLUDE CHICKEN, HYDROCODONE, MOLDS AND PENICILLIN. CURRENT MEDICATIONS: Include Prozac 40 mg p.o. daily, Coumadin 12 mg daily, Thursday, Thursday and Thursday and 8 mg daily, Thursday, , Thursday and Thursday. Melatonin OTC FAMILY HISTORY: Noncontributory. no family history of ovarian Ca SOCIAL HISTORY: The patient is , is sexually active and denies smoking, alcohol or drug use. Was on OC's in past and had PE REVIEW OF SYSTEMS: Abdominal pain associated with some vomiting and nausea and some minor diarrhea. Periods are regular lasting 3-5 days PHYSICAL EXAMINATION: HEENT: Within normal limits. ABDOMEN: Soft, nontender. There is some mild tenderness with deep palpation. On the left, there is no rebound or guarding. SKIN: Dry. EXTREMITIES: Nontender. No calf tenderness. Negative Homans sign. LABORATORY DATA: Hemoglobin 12.4, hematocrit 36.8, white count 4.32. Urine is negative. Her CA-125 is pending. CEA is pending. Coags are normal. Imaging studies, uterus is 8.4 cm. The ovary appears to be enlarged on the left with a 13 x 9 cm cystic structure superior to the bladder. No evidence of any lymphadenopathy. The right ovary is seen and small. No ascites noted and this was confirmed by CAT scan. 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 The patient was counseled that possibility of cancer is remote but not zero. Further surgery depending on what we find. Again this was conveyed to the patient. consents were signed and risks of surgery and complications wee detailed to her. Will stop anticoagulants prior to surgery and resume post-op. MTDD
--- NOTE | 2017-01-14 18:21 | Anesthesiology Progress Note ---
Pre-OP Anesthesia Assessment Date of Note Jan 14, 2017. Review patient information reviewed, chart reviewed, labs reviewed, acceptable for surgery Notes I saw this pt for exploratory laparotomy by Dr. Thorpe for 13x12 cm cystic lesion , likely from L ovary, representing benign cyst vs cystic neoplastic process. The mass was found on CT when the pt presented w/ N/V and diarrhea. She currently is tolerating a liquid diet. She has myotonic dystrophy. Echo from was normal. She wears 2L O2 and uses 2 pillows at night. She has a fairly good functional capacity, able to climb a flight or two of stairs or walk uphill w/ occasional SOB. Her most recent GA was in for a lap cori. At that time, she was intubated w/ 20 mg rocuronium (grade 2 view w/ Mac 3). She had one twitch at the end of the case and was not reversed due to her myotonic dystrophy so was taken to the PACU intubated. She had some desaturations there from what sounds like fighting the vent but was ultimately weaned and extubated. She did fine after that. She only received 25 mcg fentanyl and IV acetaminophen and had good pain control. PMH also includes RUPERTO, Factor V Leiden w/ h/o PE x 2 (most recently in , on warfarin), GERD, depression, and h/o bulimia. On exam, she is sitting in bed in NAD, awake and alert, w/ some of the facial features of myotonic dystrophy. Afebrile w/ stable vitals. Airway exam shows MP2 w/ full CROM but short chin. Heart and lung exam normal. Labs significant for mild pancytopenia (WBC 4, Hgb 11.1, Plt 91). Her warfarin was subtherapeutic w/ INR 1.0. I consented her for GETA. She'll be NPO after midnight. A neuraxial technique for post-op analgesia will unfortunately not be an option since she had a full dose of Lovenox today at 12:11 (need 24 hrs, surgery schedule for 7:15 start tomorrow). Though GA is not ideal given the myotonic dystrophy, I'm not sure how well she would tolerate breathing under spinal (even if it were an option from the Lovenox standpoint) w/ a T4 sensory level given much of her accessory respiratory muscles would be affected. She will likely require post-op mechanical ventilation for a short period of time like before.
[2017-01-15] VITALS (60 sets, daily range): BP systolic 81–129; BP diastolic 57–88; PULSE 49–83; TEMP 36.6–37.1; O2SAT 78–100
[2017-01-15 06:11] LABS: HEMATOCRIT 36.2 % (37-47); MEAN CELL VOLUME 91.4 fL (80-100); MEAN CORPUSCULAR HEMOGLOBIN 29.5 pg (25-34); MEAN CORPUSCULAR HGB CONC 32.3 g/dl (32-36); PLATELET COUNT 93 K/uL (130-400); RED BLOOD COUNT 3.96 M/uL (4.2-5.4); WHITE BLOOD COUNT 3.47 K/uL (4.8-10.8)
[2017-01-15 06:19] LABS: INR 1.1 (0.9-1.1); PROTHROMBIN TIME (PATIENT) 11.4 SECONDS (9.0-12.0)
--- NOTE | 2017-01-15 06:38 | History & Physical Bridge Note ---
H&P Re-Evaluation Bridge Note: I have examined the patient, reviewed the History & Physical and in the interval since the performance of the History & Physical I have noted the following changes of clinical significance: No changes noted
[2017-01-15 06:48] LABS: BUN/CREATININE RATIO 10.8 (10-20); CALCIUM 8.8 mg/dl (8.5-10.1); CREATININE 0.71 mg/dl (0.60-1.20); MAGNESIUM 2.6 mg/dl (1.8-2.4)
[2017-01-15] MEDS ORDERED: FENTANYL CITRATE INJ 50 MCG/1 ML 2 ML VIAL ONE (07:00)
[2017-01-15] MEDS ORDERED: LIDOCAINE HCL 2% 2 ML VIAL (20MG/ML) ONE (07:00)
[2017-01-15] MEDS ORDERED: ROCURONIUM BROMIDE 10 MG/ML 5 ML VIAL ONE (07:00)
[2017-01-15] MEDS ORDERED: PROPOFOL IV EMULSION 10 MG/ML 20 ML VIAL IV ONE (07:00)
[2017-01-15] MEDS ORDERED: MIDAZOLAM HCL 1 MG/ML 2ML VIAL ONE (07:00)
[2017-01-15] MEDS ORDERED: GABAPENTIN 250 MG/5 ML 470 ML BTL PO SCH (07:00)
[2017-01-15] MEDS ORDERED: GABAPENTIN 300 MG CAP PO ONE (07:08)
[2017-01-15] MEDS ORDERED: DEXAMETHASONE SOD INJ 4 MG/ML VIAL ONE ×2 (07:32→08:53)
[2017-01-15] MEDS ORDERED: BUPIVACAINE/EPINEPHRINE 0.5% MPF 1:200,000 30 ML VIAL ONE (07:32)
[2017-01-15] MEDS ORDERED: KETAMINE HCL INJ 50 MG/ML 10 ML VIAL ONE (07:56)
[2017-01-15] MEDS ORDERED: ACETAMINOPHEN 1000 MG/100 ML IV IV ONE (08:26)
--- NOTE | 2017-01-15 08:33 | [facility] Post Operative Brief Note ---
Immediate Operative Summary Operative Date Jan 15, 2017. Pre-Operative Diagnosis left ovarian pelvic mass Post-Operative Diagnosis same Procedure(s) Performed Exploratory laparotomy pelvic washings excision of left ovarian mass Surgeon [place] Director Surgeon(s) Migue Estimated Blood Loss 50 ml. Findings left ovarian pelvic mass Fluids (cc crystalloids) LR Specimens left ovarian mass Drains Worthy Anesthesia General with Tap block Complication(s) None Disposition Recovery Room / PACU
[2017-01-15] MEDS ORDERED: KETOROLAC TROMETHAMINE 30 MG/ML VIAL IV. PRN (08:45)
[2017-01-15] MEDS ORDERED: ONDANSETRON INJ 2 MG/ML 2 ML VIAL IV PRN (08:45)
[2017-01-15] MEDS ORDERED: KETOROLAC TROMETHAMINE 30 MG/ML VIAL ONE (08:53)
[2017-01-15] MEDS ORDERED: ONDANSETRON INJ 2 MG/ML 2 ML VIAL ONE (08:53)
[2017-01-15] MEDS ORDERED: EpHEDrine SULFATE 50MG/5ML SYR ONE (08:53)
[2017-01-15] MEDS ORDERED: PROPOFOL IV EMULSION 10 MG/ML 100 ML VIAL IV PRN (09:15)
[2017-01-15] MEDS ORDERED: PROPOFOL IV EMULSION 10 MG/ML 100 ML VIAL IV ONE (09:16)
--- NOTE | 2017-01-15 09:45 | Critical Care Consultation ---
Critical Care Consultation Date of Consultation: Jan 15, 2017. Attending Physician: Melvi Gonzalez DO Reason for Consultation: ICU Management History of Present Illness Mrs Sherita Davidson is a 41 yo F with history of major depressive disorder/bulimia/ multiple suicidal attempts, myotonic muscular dystrophy, traumatic brain injury , RUPERTO, Factor V Leidin with two previous PE's (most recently in 2010 while on coumadin) who presents to the ICU post-operatively for ovarian mass removal. She initially presented to the ED 01/12/17 via EMS with nausea/vomiting & abdominal pain, and was found to have a 13 x 12 cm cystic lesion immediately superior to the bladder (ovarian cyst vs neoplasm). She was taken to the OR on for removal of this mass by Dr Thorpe. On review of anesthesias notes, the pt previously was under GA in 2014 for a lap cori, and also required a period of time in the ICU prior to weaning, as she was sensitive to the neuromuscular blockade at that time (20mg rocuronium). She was ultimately weaned and extubated without issue. Currently, she has returned from the ED and is intubated, sedated, and ventilated. She is tolerating and not fighting the ventilator. Past Medical/Surgical History PMHx: 1. Myotonic dystrophy 2. H/o traumatic brain injury 3. Factor V Leiden, heterozygous type 4. GERD 5. Bilateral PE x 2, once while on OCP 6. Coumadin use 7. Major depressive disorder with previous suicide attempts PSHx: 1. Cholecystectomy 2. Tonsillectomy 3. R Breast lumpectomy 4. 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 Allergies Coded Allergies: Azithromycin (Verified Allergy, Intermediate, vomiting, 01/15/17) Hydrocodone (Verified Allergy, Mild, RASH, 01/12/17) Molds and Smuts (Verified Allergy, Mild, 01/12/17) Penicillins (Verified Allergy, Mild, RASH, 01/12/17) Chicken Allergy (Verified Allergy, Unknown, Mild allergy to chicken products, 01/12/17) Chicken Meat (Verified Allergy, Unknown, Mild allergy to chicken products , 01/12/17) Home Medications Scheduled Acetaminophen Tab (Tylenol), 650 MG PO UD Fluoxetine (Prozac), 40 MG PO QAM Melatonin (Melatonin Maximum Strengt), 1 TAB PO HS Warfarin Sod (Jantoven), 12 MG PO [id number] Warfarin Sod (Jantoven), 8 MG PO [id number] Current Inpatient Medications Current Inpatient Medications Medications (Trade) Dose Ordered Sig/Yas Route Start Time Stop Time Status Last Admin Dose Admin Ioversol (Optiray 320) 100 ml UD PRN IV 01/12/17 17:45 01/16/17 17:44 Hydromorphone HCl (Dilaudid Inj) 1 mg Q4 PRN IV 01/12/17 20:45 01/26/17 20:44 Hydromorphone HCl (Dilaudid Inj) 2 mg Q4 PRN IV 01/12/17 20:45 01/26/17 20:44 Acetaminophen (Tylenol Tab) 650 mg Q4H PRN PO 01/13/17 00:00 02/12/17 00:00 Future Hold Al Hydrox/Mg Hydrox/Simethicone (Maalox Max Susp) 15 ml Q4H PRN PO 01/13/17 00:00 02/12/17 00:00 Magnesium Hydroxide (Milk Of Magnesia Susp) 30 ml Q6H PRN PO 01/13/17 00:00 02/12/17 00:00 Polyethylene (Miralax Powder Packet) 17 gm DAILY PRN PO 01/13/17 00:45 02/12/17 00:44 Zolpidem Tartrate (Ambien Tab) 5 mg HSZ PRN PO 01/13/17 00:00 02/12/17 00:00 Ondansetron HCl (Zofran Inj) 4 mg Q6H PRN IV 01/13/17 00:00 02/12/17 00:00 Fluoxetine HCl (Prozac Cap) 40 mg QAM PO 01/13/17 13:00 02/12/17 12:59 01/14/17 08:40 40 MG Warfarin Sodium (Coumadin Tab) 8 mg SuTuThSa@1600 PO 01/13/17 16:00 02/12/17 15:59 Future Hold 01/13/17 16:35 8 MG Warfarin Sodium (Coumadin Tab) 12 mg MoWeFr@1600 PO 01/14/17 16:00 02/13/17 15:59 Future hold Oxycodone/ Acetaminophen (Percocet 5-325mg Tab) 1 tab Q4H PRN PO 01/13/17 11:00 01/27/17 10:59 Oxycodone/ Acetaminophen (Percocet 5-325mg Tab) 2 tab Q4H PRN PO 01/13/17 11:00 01/27/17 10:59 Miscellaneous Information (Order Awaiting Action) 1 ea QS N/A 01/13/17 16:00 02/12/17 15:59 Enoxaparin Sodium (Lovenox Inj) 60 mg Q12@1100,2300 SQ 01/13/17 13:00 02/12/17 12:59 Future Hold 01/14/17 12:11 60 MG Ondansetron HCl (Zofran Odt) 8 mg Q8H PRN PO 01/13/17 23:00 02/12/17 22:59 01/14/17 18:27 8 MG Ketorolac Tromethamine 30 mg 30 mg Q6H PRN IV. 01/15/17 08:45 01/16/17 08:44 Acetaminophen 1000 mg/Empty Bag 100 ml @ 400 mls/hr Q8H IV 01/15/17 16:00 02/14/17 15:59 Lactated Ringer's (Lr 1000ml) 1,000 ml @ 125 mls/hr Q8H IV 01/15/17 08:45 02/14/17 08:44 Propofol (Diprivan Iv Emulsion 100ml Vial) 1 dose UD PRN IV 01/15/17 09:15 01/15/17 18:00 Review of Systems Unable to obtain ROS due to patients mental status Physical Exam Date Time Temp Pulse Resp B/P Pulse Ox O2 Delivery O2 Flow Rate FiO2 01/15/17 06:19 36.8 51 16 112/76 98 Room Air 01/15/17 00:00 37.1 53 16 94/62 95 Room Air 01/15/17 00:00 Room Air 01/14/17 16:00 Room Air 01/14/17 15:39 36.7 60 18 104/73 91 Room Air GENERAL: Intubated and sedated HENT: Normocephalic, atraumatic. Oropharynx unremarkable. EYES: Normal conjunctiva. Sclera non-icteric. NECK: Supple. No nuchal rigidity. FROM. No JVD. RESPIRATORY: Clear to auscultation. CARDIAC: Regular rate, normal rhythm. Extremities warm and well perfused. Pulses equal. ABDOMEN: Soft, non-distended. No tenderness to palpation. No rebound or guarding. No masses. LOWER EXTREMITIES: Calves are equal size bilaterally and non-tender. No edema. No discoloration. NEURO: RASS -4 SKIN: No rash or jaundice noted. Laboratory Results Last 24 Hours Test 01/15/17 05:27 White Blood Count 3.47 K/uL Red Blood Count 3.96 M/uL Hemoglobin 11.7 g/dL Hematocrit 36.2 % Mean Corpuscular Volume 91.4 fL Mean Corpuscular Hemoglobin 29.5 pg Mean Corpuscular Hemoglobin Concent 32.3 g/dl RDW Standard Deviation 56.0 fL RDW Coefficient of Variation 16.8 % Platelet Count 93 K/uL Mean Platelet Volume 13.0 fL Prothrombin Time 11.4 SECONDS Prothromb Time International Ratio 1.1 Sodium Level 148 mmol/L Potassium Level 4.0 mmol/L Chloride Level 114 mmol/L Carbon Dioxide Level 28 mmol/L Anion Gap 6.0 mmol/L Blood Urea Nitrogen 8 mg/dl Creatinine 0.71 mg/dl Est Creatinine Clear Calc Drug Dose 79.9 ml/min Estimated GFR () 124.4 Estimated GFR (Non- 107.3 BUN/Creatinine Ratio 10.8 Random Glucose 89 mg/dl Calcium Level 8.8 mg/dl Magnesium Level 2.6 mg/dl Diagnostic Results CT ABD/PELVIS: IMPRESSION: 1. 13 x 12 cm cystic lesion immediately superior to the bladder. 2. Diagnostic considerations must include cystic ovarian neoplastic process versus large ovarian simple cyst,. 3. No significant andrea pathology. 4. DAY CARE ATTENDANT consultation is recommended. 5. Normal appendix. 6. Nonobstructive bowel pattern. PELVIC US: IMPRESSION: 13 x 9 cm cystic mass superior to the bladder. This may relate to the left ovary as a left ovary is not identified as a separate entity. Differential considerations remain a large ovarian cyst versus cystic neoplastic process. Assessment & Plan 41 yo F day 0 s/p L ovarian mass removal under GA, currently sedated and not able to be weaned / extubated. Neuro: Received a dose of propofol upon arrival Received Rocuronium for intubation Continue to monitor Restraints: Not currently indicated - Will monitor pt and wean when / extubate when indicated Resp: Ventilator settings: AC, Rate 12, TV 500mL, PEEP 5, FiOe 40% HOB up 30 degrees: Yes Chlorhexidine: Yes Cardiovascular: CV drips: Remains off vasoactive medications Rhythm: Sinus EKG: None available ECHO: Echo from 2015 - EF 55-60%, LV normal size and thickness, No regional wall abnormalities, RV mildly dilated. Fluids/Renal: Na 148, K 4.0 Cr 0.71 Worthy: Present GI/Nutrition: NPO until off neurosedation Prophylaxis: None Endocrine: Last 24 hour glucose: Ranging 84-94 Insulin protocol: No; Drip: No Hematology: Hemoglobin 11.7, Hct 36.2 DVT prophylaxis: Was receiving Lovenox Skin/MSK: Fecal management system in place Infectious Disease/Immunology: Tmax: 37.1 CV Lines (date): None Antimicrobials: None Cultures: None obtained Resident Physician Supervision Note: Dr. Warren was resident physician during care of patient. I separately evaluated patient and did history and exam. I discussed the case with the resident and generally agree with the findings and plan. Patient with acute postoperative respiratory insufficiency, history of myotonic dystrophy, patient was brought to the ICU to metabolize off nondepolarizing neuromuscular blockade. Per report the removal of the pelvic mass involved minimal blood loss, sedatives or discontinued and the patient was able to follow complex commands and able to hold her head off the bed and was successfully extubated. The epidural is working quite well for pain control currently she is regaining function of her lower extremities however she still remains largely insensate, however, she is starting to feel the SCDs when they squeeze. Given patient has a history of factor V Leiden, and history of PE 2 with minimal blood loss and reported meticulous surgical hemostasis we will start her therapeutic Lovenox at his regular scheduled interval this evening. I am not going to start Coumadin until tomorrow at its earliest I have personally spent 60 minutes of critical care time in the direct management of this patient. This is a life/limb threatening event. This includes time spent evaluating patient, direct bedside care, chart review, placing orders, interpretation of diagnostic studies, discussion with consultants, patient, and family members, as well as other required patient management activities. This time is exclusive of all separately billable procedures, and teaching time and separate from and in addition to any other critical care service time. Documented By: Jose Ramon Newell DO Resident Tracking Resident Involvement: Resident Care Provided Care Provided: Adult Hospital Medicine (ICU)
--- NOTE | 2017-01-15 10:43 | Anesthesiology Progress Note ---
Anesthesia Post Op Note Date & Time Jan 15, 2017 at 10:39 Vital Signs Pain Intensity: 0 Vital Signs Past 12 Hours Date Time Temp Pulse Resp B/P Pulse Ox O2 Delivery O2 Flow Rate FiO2 01/15/17 09:30 77 12 109/68 98 Mechanical Ventilator 40 01/15/17 09:20 98 12 137/97 98 Mechanical Ventilator 40 01/15/17 09:19 40 01/15/17 09:10 77 12 114/76 96 Mechanical Ventilator 40 01/15/17 09:00 36.5 98 12 152/89 97 Mechanical Ventilator 40 01/15/17 06:19 36.8 51 16 112/76 98 Room Air 01/15/17 00:00 37.1 53 16 94/62 95 Room Air 01/15/17 00:00 Room Air Notes Mental Status: alert / awake / arousable, participated in evaluation Pt Amnestic to Procedure: Yes Nausea / Vomiting: adequately controlled Pain: adequately controlled Airway Patency, RR, SpO2: stable & adequate, see Notes BP & HR: stable & adequate Hydration State: stable & adequate Anesthetic Complications: no major complications apparent Patient remains intubated post op. Her TAP block appears to be working well. Induction dose of judd was 30mg and procedure was completed quickly. As anticipated, the patient will require mechanical ventilation until her relaxant wears off as she cannot be reversed. Sedation was on board and MANAGER BUSINESS SYSTEMS was educated on most likely triggers of myotonia. I have spoken with the sander hand who will assume care of the patient overnight as was planned preop.
[2017-01-15 12:38] LABS: ISTAT ARTERIAL BLOOD GAS HCO3 22 meq/L (19-24); ISTAT ARTERIAL BLOOD GAS PCO2 34 mmHg (35-46); ISTAT ARTERIAL BLOOD GAS PO2 180 mmHg (80-95); ISTAT ARTERIAL BLOOD GAS pH 7.42 (7.35-7.45); ISTAT CARBON DIOXIDE 23 mEq/l (24-31); ISTAT DELIVERY SYSTEM Ventilator; ISTAT FIO2 40 %; ISTAT PEEP 5; ISTAT RATE 12; ISTAT SITE Art Line; VE 5.5; Vt 500
[2017-01-15] MEDS: FLUOXETINE HCL 20 MG CAP PO SCH (13:18)
[2017-01-15] MEDS: LACTATED RINGER'S 1000ML 1,000 ML IV SCH ×3 (13:22→23:52)
[2017-01-15] MEDS: ACETAMINOPHEN IV 1,000 MG in EMPTY BAG 0 ML IV SCH ×2 (17:08→23:52)
--- NOTE | 2017-01-15 18:39 | Progress Note ---
Subjective Date of Service: Jan 15, 2017. Subjective Pt evaluation today including: conversation w/ patient, physical exam, lab review, review of studies, review of inpatient medication list Saw/examined the patient in room 110 She's doing well post-operatively - had her left ovary mass removed was kept intubated post-operatively and transferred to ICU and then was extubated Doing well, feels fine Problem List Medical Problems: (1) Depression Status: Acute (2) Depression Status: Acute (3) Mood disorder Status: Acute (4) Noncompliance with medication regimen Status: Acute (5) Right leg paresthesias Status: Acute (6) Suicidal ideation Status: Acute (7) Suicidal ideation Status: Acute (8) Suicidal ideation Status: Acute Review of Systems Constitutional: + weakness, No chills, No fever Respiratory: No cough, No dyspnea on exertion, No shortness of breath, No sputum Cardiac: No chest pain Abdomen: No diarrhea, No nausea, No pain, No vomiting Medications Current Inpatient Medications Medications (Trade) Dose Ordered Sig/Yas Route Start Time Stop Time Status Last Admin Dose Admin Ioversol (Optiray 320) 100 ml UD PRN IV 01/12/17 17:45 01/16/17 17:44 Hydromorphone HCl (Dilaudid Inj) 1 mg Q4 PRN IV 01/12/17 20:45 01/26/17 20:44 Hydromorphone HCl (Dilaudid Inj) 2 mg Q4 PRN IV 01/12/17 20:45 01/26/17 20:44 Acetaminophen (Tylenol Tab) 650 mg Q4H PRN PO 01/13/17 00:00 02/12/17 00:00 Future Hold Al Hydrox/Mg Hydrox/Simethicone (Maalox Max Susp) 15 ml Q4H PRN PO 01/13/17 00:00 02/12/17 00:00 Magnesium Hydroxide (Milk Of Magnesia Susp) 30 ml Q6H PRN PO 01/13/17 00:00 02/12/17 00:00 Polyethylene (Miralax Powder Packet) 17 gm DAILY PRN PO 01/13/17 00:45 02/12/17 00:44 Zolpidem Tartrate (Ambien Tab) 5 mg HSZ PRN PO 01/13/17 00:00 02/12/17 00:00 Ondansetron HCl (Zofran Inj) 4 mg Q6H PRN IV 01/13/17 00:00 02/12/17 00:00 Fluoxetine HCl (Prozac Cap) 40 mg QAM PO 01/13/17 13:00 02/12/17 12:59 01/14/17 08:40 40 MG Warfarin Sodium (Coumadin Tab) 8 mg SuTuThSa@1600 PO 01/13/17 16:00 02/12/17 15:59 Future Hold 01/13/17 16:35 8 MG Warfarin Sodium (Coumadin Tab) 12 mg MoWeFr@1600 PO 01/14/17 16:00 02/13/17 15:59 Future hold Oxycodone/ Acetaminophen (Percocet 5-325mg Tab) 1 tab Q4H PRN PO 01/13/17 11:00 01/27/17 10:59 Oxycodone/ Acetaminophen (Percocet 5-325mg Tab) 2 tab Q4H PRN PO 01/13/17 11:00 01/27/17 10:59 Miscellaneous Information (Order Awaiting Action) 1 ea QS N/A 01/13/17 16:00 02/12/17 15:59 Enoxaparin Sodium (Lovenox Inj) 60 mg Q12@1100,2300 SQ 01/13/17 13:00 02/12/17 12:59 Future Hold 01/14/17 12:11 60 MG Ondansetron HCl (Zofran Odt) 8 mg Q8H PRN PO 01/13/17 23:00 02/12/17 22:59 01/14/17 18:27 8 MG Ketorolac Tromethamine 30 mg 30 mg Q6H PRN IV. 01/15/17 08:45 01/16/17 08:44 Acetaminophen 1000 mg/Empty Bag 100 ml @ 400 mls/hr Q8H IV 01/15/17 16:00 02/14/17 15:59 01/15/17 17:08 400 MLS/HR Lactated Ringer's (Lr 1000ml) 1,000 ml @ 125 mls/hr Q8H IV 01/15/17 08:45 02/14/17 08:44 01/15/17 17:04 125 MLS/HR Objective Vital Signs Date Time Temp Pulse Resp B/P Pulse Ox O2 Delivery O2 Flow Rate FiO2 01/15/17 18:00 72 16 124/64 99 Nasal Cannula 2.0 81/ 01/15/17 16:00 36.7 64 16 101/74 98 Nasal Cannula 2.0 01/15/17 16:00 98 Nasal Cannula 2.0 01/15/17 14:55 59 109/60 93 01/15/17 14:50 62 109/85 94 01/15/17 14:45 56 105/64 91 01/15/17 14:40 56 115/60 88 01/15/17 14:35 58 107/64 78 01/15/17 14:30 59 110/63 84 01/15/17 14:25 58 117/80 82 01/15/17 14:20 58 111/74 87 01/15/17 14:15 61 108/82 96 01/15/17 14:10 62 109/64 01/15/17 14:05 67 105/80 85 01/15/17 14:00 63 120/61 95 01/15/17 13:05 53 12 106/57 98 01/15/17 13:00 53 12 106/62 97 01/15/17 12:55 53 12 102/75 98 01/15/17 12:50 53 12 104/63 99 01/15/17 12:45 52 12 105/71 97 01/15/17 12:40 53 12 106/68 01/15/17 12:35 51 12 108/60 96 01/15/17 12:30 52 12 109/62 95 01/15/17 12:25 54 12 110/65 100 01/15/17 12:20 59 12 113/69 98 01/15/17 12:15 55 12 110/62 97 01/15/17 12:10 52 12 111/65 96 01/15/17 12:06 70 13 115/88 97 01/15/17 12:00 36.6 49 12 103/76 96 01/15/17 12:00 40 01/15/17 12:00 99 Mechanical Ventilator 40 01/15/17 11:55 51 12 107/65 97 01/15/17 11:53 40 01/15/17 11:50 53 12 109/68 97 01/15/17 11:45 54 12 110/65 95 01/15/17 11:40 50 12 105/60 97 01/15/17 11:35 54 12 105/60 99 01/15/17 11:30 51 12 107/61 89 01/15/17 11:15 54 12 105/76 99 01/15/17 11:10 55 12 108/78 92 01/15/17 11:05 49 12 111/61 94 01/15/17 11:00 54 12 109/69 98 01/15/17 10:55 57 12 112/65 97 01/15/17 10:50 54 12 111/66 99 01/15/17 10:45 53 12 118/64 94 01/15/17 10:40 55 12 115/84 95 01/15/17 10:35 72 10 119/72 97 01/15/17 10:31 69 12 120/72 100 01/15/17 10:30 56 12 96 01/15/17 10:26 68 15 126/73 99 01/15/17 10:20 55 12 122/65 96 01/15/17 10:15 52 12 119/68 99 01/15/17 10:10 56 12 125/77 94 01/15/17 10:05 60 12 125/71 92 01/15/17 10:00 65 15 128/77 99 01/15/17 09:55 60 13 118/73 97 01/15/17 09:50 62 12 124/69 94 01/15/17 09:45 65 12 115/72 85 01/15/17 09:30 77 12 109/68 98 Mechanical Ventilator 40 01/15/17 09:20 98 12 137/97 98 Mechanical Ventilator 40 01/15/17 09:19 40 01/15/17 09:10 77 12 114/76 96 Mechanical Ventilator 40 01/15/17 09:00 36.5 98 12 152/89 97 Mechanical Ventilator 40 01/15/17 06:19 36.8 51 16 112/76 98 Room Air 01/15/17 00:00 37.1 53 16 94/62 95 Room Air 01/15/17 00:00 Room Air Physical Exam General Appearance: no apparent distress Respiratory/Chest: lungs clear, normal breath sounds, no respiratory distress, no accessory muscle use Cardiovascular: regular rate, rhythm, no edema, no murmur Abdomen: non tender, soft, + tenderness (mild tenderness at site) Neurologic/Psychiatric: no motor/sensory deficits, alert, normal mood/affect Laboratory Results Last 24 Hours Test 01/15/17 05:27 01/15/17 12:24 01/15/17 13:08 01/15/17 16:08 White Blood Count 3.47 K/uL Red Blood Count 3.96 M/uL Hemoglobin 11.7 g/dL Hematocrit 36.2 % Mean Corpuscular Volume 91.4 fL Mean Corpuscular Hemoglobin 29.5 pg Mean Corpuscular Hemoglobin Concent 32.3 g/dl RDW Standard Deviation 56.0 fL RDW Coefficient of Variation 16.8 % Platelet Count 93 K/uL Mean Platelet Volume 13.0 fL Prothrombin Time 11.4 SECONDS Prothromb Time International Ratio 1.1 Sodium Level 148 mmol/L Potassium Level 4.0 mmol/L Chloride Level 114 mmol/L Carbon Dioxide Level 28 mmol/L Anion Gap 6.0 mmol/L Blood Urea Nitrogen 8 mg/dl Creatinine 0.71 mg/dl Est Creatinine Clear Calc Drug Dose 79.9 ml/min Estimated GFR () 124.4 Estimated GFR (Non- 107.3 BUN/Creatinine Ratio 10.8 Random Glucose 89 mg/dl Calcium Level 8.8 mg/dl Magnesium Level 2.6 mg/dl Blood Gas Sample Site Art Line Bedside Blood Gas pH (LAB) 7.42 Bedside Blood Gas pCO2 (LAB) 34 mmHg Bedside Blood Gas pO2 (LAB) 180 mmHg Bedside Blood Gas HCO3 (LAB) 22 meq/L Bedside Blood Gas Total CO2 23 mEq/l Bedside Blood Gas Base Excess (LAB) -3.0 meq/L Bedside Blood Gas O2 Saturation 100.0 % Maurice Test NA Oxygen Delivery Device Ventilator Bedside Oxygen Rate (breaths/min) 12 Blood Gas Minute Ventilation 5.5 Bedside FiO2 40 % Blood Gas Tidal Volume 500 Blood Gas PEEP 5 Bedside Glucose 98 mg/dl 126 mg/dl Assessment and Plan This is a 41 year old female with PMH of muscular dystrophy, chronic thrombocytopenia, Factor V Leiden mutation, hx. of PE on Coumadin presented with worsening nausea/vomiting and subsequently found to have cystic mass superior to the bladder Cystic Mass 01/15 left ovarian mass excised feeling better clear liquid diet for dinner can transfer out of ICU in AM (01/16) if everything looks good 01/14 appreciate oncology evaluation will await BREAD SLICER MACHINE input due to worsening nausea/vomiting, will go back to clears and see if she tolerates that Zofran PRN 01/13 patient had an abdominal/pelvic CT showing a cystic mass Pelvic U/S performed also showing this pain symptoms: nausea/vomiting, which have resolved CA-125 pending will need biopsy gynecological consultation pending Factor V Leiden mutation Hx. of PE 01/15 restart Lovenox and bridge with Coumadin 01/14 continue Lovenox to Coumadin 01/13 patient is on chronic Coumadin could not take this due to nausea/vomiting currently on Lovenox 1mg/kg BID - continue this INR = 1.0 continue Coumadin and recheck INR in AM Chronic Thrombocytopenia platelets always run around ~100 has followed with hematology in the past no additional w/up needed at this time DVT ppx Lovenox FULL CODE
--- NOTE | 2017-01-15 21:33 | OPERATIVE REPORT ---
DATE OF OPERATION: 01/15/2017 PREOPERATIVE DIAGNOSIS: Left pelvic mass. POSTOPERATIVE DIAGNOSIS: Same. PROCEDURE: Exploratory laparotomy, pelvic washings and excision of left ovary and mass. SURGEON: Dr. Thorpe. SIGNAL TIMER: Dr. Camarena. ANESTHESIA: General with local block. CLINICAL HISTORY: The patient is a 41-year-old female, para 0-0-0-0 who was admitted for increasing vomiting and pain. She was found to have a large 13+ cm mass by CT and ultrasound and due to her continued vomiting and presence of this mass, decision was made to remove this and go to surgery. The appearance of the mass was benign by radiology. The patient is 41. She is a 0, para 0 and is not interested in fertility. DESCRIPTION OF PROCEDURE: Under satisfactory general anesthesia, the patient was prepped and draped in usual sterile fashion. Timeout was called, antibiotics were given. A low Pfannenstiel incision was made, entering into the abdominal cavity in successive layers without difficulty. Upon entering into the peritoneal cavity, pelvic washings were obtained. The mass was identified on the left side. It was cystic. There were no excrescences. The ovary was seen and found to be very small on the left. The uterus was normal in size, the ovary on the right was normal. Remainder of the pelvic and abdominal cavity were within normal limits. The cyst was delivered through the laparotomy incision. The pedicle was noted to be not twisted and the EndoShears were then placed and using the cautery with the EndoShears, this was then transected. This specimen was removed and submitted to pathology as a separate specimen along with the pelvic washing. Pedicle was examined and a [id number] suture was placed and using 0 Vicryl suture around the pedicle for securing the pedicle. There was a remnant of the ovary that was remaining on the left ovary. The contents of the pelvic cavity were then irrigated. The initial sponge, needle and instrument count were found to be correct. The fascia was then reapproximated from both ends using 0 Vicryl suture in a continuous fashion. Subcuticular layer was closed with 3-0 plain suture. Irrigation was accomplished again, no active bleeding was noted and the skin was then reapproximated with aarti. Clear urine was noted. ESTIMATED BLOOD LOSS: 50 mL. The final sponge, needle and instrument counts were found to be correct. The patient was then placed supine on a stretcher and she was taken to recovery room in stable condition. I attest to the content of the Intraoperative Record and any orders documented therein. Any exceptio ns are noted below.
[2017-01-15] MEDS: NON-FORMULARY PATIENT'S OWN MED PO SCH (21:57)
[2017-01-15] MEDS: HYDROmorphone INJ 2 MG/ML SYR/VIAL IV PRN (22:27)
[2017-01-16] VITALS (15 sets, daily range): BP systolic 85–113; BP diastolic 44–67; PULSE 51–70; TEMP 36.5–36.9; O2SAT 90–99
[2017-01-16] MEDS: ENOXAPARIN 60 MG/0.6 ML SYR SQ SCH ×3 (00:15→22:37)
[2017-01-16 04:18] LABS: HEMATOCRIT 32.1 % (37-47); IG% 0.2 %; LYMPH % 7.2 %; LYMPH ABS # 0.47 K/uL (1.2-3.4); MEAN CELL VOLUME 90.9 fL (80-100); MEAN CORPUSCULAR HEMOGLOBIN 29.2 pg (25-34); MEAN PLATELET VOLUME 11.9 fL (7.4-10.4); MONO % 7.8 %; NEUT % 84.8 %; PLATELET COUNT 104 K/uL (130-400); RED BLOOD COUNT 3.53 M/uL (4.2-5.4); WHITE BLOOD COUNT 6.55 K/uL (4.8-10.8)
[2017-01-16 04:33] LABS: INR 1.2 (0.9-1.1); PROTHROMBIN TIME (PATIENT) 13.2 SECONDS (9.0-12.0)
[2017-01-16 04:37] LABS: BUN/CREATININE RATIO 7.3 (10-20); CALCIUM 8.1 mg/dl (8.5-10.1); CREATININE 0.57 mg/dl (0.60-1.20); MAGNESIUM 2.5 mg/dl (1.8-2.4)
[2017-01-16 04:50] LABS: COMPLETE YES; MEAN CORPUSCULAR HGB CONC 32.1 g/dl (32-36)
--- NOTE | 2017-01-16 07:37 | Critical Care Progress Note ---
Critical Care Progress Note Date of Service Jan 16, 2017. ICU Day ICU Day Number: [address] Newell Subjective Extubated yesterday afternoon Awake, alert today, talking well Denies any new concerns Reports her BP is always on lower side due to muscular dystrophy Objective GENERAL: Awake, alert, well-appearing, in no acute distress HENT: Normocephalic, atraumatic. Oropharynx unremarkable. EYES: Normal conjunctiva. Sclera non-icteric. NECK: Supple. No nuchal rigidity. FROM. No JVD. RESPIRATORY: Clear to auscultation. CARDIAC: Regular rate, normal rhythm. Extremities warm and well perfused. Pulses equal. ABDOMEN: Soft, non-distended. No tenderness to palpation. No rebound or guarding. No masses. LOWER EXTREMITIES: Calves are equal size bilaterally and non-tender. No edema. No discoloration. NEURO: Normal sensorium. No sensory or motor deficits noted. SKIN: No rash or jaundice noted. Current SOFA Score SOFA Score Response (Comments) Value Level of Hypotension No Hypotension 0 Total 0 Assessment & Plan 41 yo F day 1 s/p L ovarian mass removal under GA, successfully extubated after monitoring in ICU. Neuro: - GCS 15 - Pain: has not required Percocet ordered Resp: - 97% on 2L NC Cardiovascular: CV drips: Remains off vasoactive medications Rhythm: Sinus EKG: None available ECHO: Echo from 2014 - EF 55-60%, LV normal size and thickness, No regional wall abnormalities, RV mildly dilated. - Remove arterial line today Fluids/Renal: Na 147, K 4.0 Cr 0.71 Worthy: Present, can be removed GI/Nutrition: - Advance diet as tolerated Endocrine: Last 24 hour glucose: Ranging 84-94 Insulin protocol: No; Drip: No Hematology: Hemoglobin 10.3, Hct 32.1 DVT prophylaxis: Coumadin to be restarted per primary team. She has been on therapeutic lovenox coverage. Infectious Disease/Immunology: Tmax: 37.1 CV Lines (date): None Antimicrobials: None Cultures: None obtained The patient is stable for transfer out of the ICU today/ Please do not hesitate to contact us with any questions or concerns. Resident Physician Supervision Note: Dr. Warren was resident physician during care of patient. I separately evaluated patient and did history and exam. I discussed the case with the resident and generally agree with the findings and plan. Patient stable and able to be downgraded. Documented By: Jose Ramon Newell DO Consults & Procedures Consultants: Intensivists, OB-WINDOW [employer]IT [employer] CONDITIONING MECHANIC, Anesthesia Procedures: L ovarian mass removal on 01/15. Data Medications: Current Inpatient Medications Medications (Trade) Dose Ordered Sig/Yas Route Start Time Stop Time Status Last Admin Dose Admin Ioversol (Optiray 320) 100 ml UD PRN IV 01/12/17 17:45 01/16/17 17:44 Hydromorphone HCl (Dilaudid Inj) 1 mg Q4 PRN IV 01/12/17 20:45 01/26/17 20:44 Hydromorphone HCl (Dilaudid Inj) 2 mg Q4 PRN IV 01/12/17 20:45 01/26/17 20:44 01/15/17 22:27 2 MG Acetaminophen (Tylenol Tab) 650 mg Q4H PRN PO 01/13/17 00:00 02/12/17 00:00 Future Hold Al Hydrox/Mg Hydrox/Simethicone (Maalox Max Susp) 15 ml Q4H PRN PO 01/13/17 00:00 02/12/17 00:00 Magnesium Hydroxide (Milk Of Magnesia Susp) 30 ml Q6H PRN PO 01/13/17 00:00 02/12/17 00:00 Polyethylene (Miralax Powder Packet) 17 gm DAILY PRN PO 01/13/17 00:45 02/12/17 00:44 Zolpidem Tartrate (Ambien Tab) 5 mg HSZ PRN PO 01/13/17 00:00 02/12/17 00:00 Ondansetron HCl (Zofran Inj) 4 mg Q6H PRN IV 01/13/17 00:00 02/12/17 00:00 Fluoxetine HCl (Prozac Cap) 40 mg QAM PO 01/13/17 13:00 02/12/17 12:59 01/14/17 08:40 40 MG Warfarin Sodium (Coumadin Tab) 8 mg SuTuThSa@1600 PO 01/13/17 16:00 02/12/17 15:59 Future Hold 01/13/17 16:35 8 MG Warfarin Sodium (Coumadin Tab) 12 mg MoWeFr@1600 PO 01/14/17 16:00 02/13/17 15:59 Future hold Oxycodone/ Acetaminophen (Percocet 5-325mg Tab) 1 tab Q4H PRN PO 01/13/17 11:00 01/27/17 10:59 Oxycodone/ Acetaminophen (Percocet 5-325mg Tab) 2 tab Q4H PRN PO 01/13/17 11:00 01/27/17 10:59 Enoxaparin Sodium (Lovenox Inj) 60 mg Q12@1100,2300 SQ 01/13/17 13:00 02/12/17 12:59 Future hold 01/16/17 00:15 60 MG Ondansetron HCl (Zofran Odt) 8 mg Q8H PRN PO 01/13/17 23:00 02/12/17 22:59 01/14/17 18:27 8 MG Ketorolac Tromethamine 30 mg 30 mg Q6H PRN IV. 01/15/17 08:45 01/16/17 08:44 Acetaminophen 1000 mg/Empty Bag 100 ml @ 400 mls/hr Q8H IV 01/15/17 16:00 02/14/17 15:59 01/15/17 23:52 400 MLS/HR Lactated Ringer's (Lr 1000ml) 1,000 ml @ 125 mls/hr Q8H IV 01/15/17 08:45 02/14/17 08:44 01/15/17 23:52 125 MLS/HR Non-Formulary Medication (Non-Formulary Patient'S Own Med) 2 ea HS PO 01/15/17 21:00 02/14/17 20:59 01/15/17 21:57 2 EA I & O: 24-Hour Column 01/16/17 08:00 Intake Total 4710 ml Output Total 4535 ml Balance 175 ml Vital Signs: Date Time Temp Pulse Resp B/P Pulse Ox O2 Delivery O2 Flow Rate FiO2 01/16/17 06:00 54 12 89/50 97 Nasal Cannula 2.0 96/47 01/16/17 05:00 51 12 96/51 96 Nasal Cannula 2.0 99/48 01/16/17 04:00 93 Nasal Cannula 2.0 01/16/17 04:00 36.9 54 12 85/53 94 Nasal Cannula 2.0 96/51 01/16/17 02:00 59 11 91/45 94 Nasal Cannula 2.0 91/44 01/16/17 00:01 93 Nasal Cannula 2.0 01/16/17 00:00 36.7 70 9 94/48 92 Nasal Cannula 2.0 95/44 01/15/17 22:00 66 109/64 93 Nasal Cannula 2.0 115/65 01/15/17 20:02 98 Nasal Cannula 2.0 01/15/17 20:01 36.8 80 16 120/58 95 Nasal Cannula 2.0 129/67 01/15/17 19:01 83 16 104/66 98 Nasal Cannula 2.0 125/64 01/15/17 18:00 72 16 124/64 99 Nasal Cannula 2.0 81/ 01/15/17 16:00 36.7 64 16 101/74 98 Nasal Cannula 2.0 01/15/17 16:00 98 Nasal Cannula 2.0 01/15/17 14:55 59 109/60 93 01/15/17 14:50 62 109/85 94 01/15/17 14:45 56 105/64 91 01/15/17 14:40 56 115/60 88 01/15/17 14:35 58 107/64 78 01/15/17 14:30 59 110/63 84 01/15/17 14:25 58 117/80 82 01/15/17 14:20 58 111/74 87 01/15/17 14:15 61 108/82 96 01/15/17 14:10 62 109/64 01/15/17 14:05 67 105/80 85 01/15/17 14:00 63 120/61 95 01/15/17 13:05 53 12 106/57 98 01/15/17 13:00 53 12 106/62 97 01/15/17 12:55 53 12 102/75 98 01/15/17 12:50 53 12 104/63 99 01/15/17 12:45 52 12 105/71 97 01/15/17 12:40 53 12 106/68 01/15/17 12:35 51 12 108/60 96 01/15/17 12:30 52 12 109/62 95 01/15/17 12:25 54 12 110/65 100 01/15/17 12:20 59 12 113/69 98 01/15/17 12:15 55 12 110/62 97 01/15/17 12:10 52 12 111/65 96 01/15/17 12:06 70 13 115/88 97 01/15/17 12:00 36.6 49 12 103/76 96 01/15/17 12:00 40 01/15/17 12:00 99 Mechanical Ventilator 40 01/15/17 11:55 51 12 107/65 97 01/15/17 11:53 40 01/15/17 11:50 53 12 109/68 97 01/15/17 11:45 54 12 110/65 95 01/15/17 11:40 50 12 105/60 97 01/15/17 11:35 54 12 105/60 99 01/15/17 11:30 51 12 107/61 89 01/15/17 11:15 54 12 105/76 99 01/15/17 11:10 55 12 108/78 92 01/15/17 11:05 49 12 111/61 94 01/15/17 11:00 54 12 109/69 98 01/15/17 10:55 57 12 112/65 97 01/15/17 10:50 54 12 111/66 99 01/15/17 10:45 53 12 118/64 94 01/15/17 10:40 55 12 115/84 95 01/15/17 10:35 72 10 119/72 97 01/15/17 10:31 69 12 120/72 100 01/15/17 10:30 56 12 96 01/15/17 10:26 68 15 126/73 99 01/15/17 10:20 55 12 122/65 96 01/15/17 10:15 52 12 119/68 99 01/15/17 10:10 56 12 125/77 94 01/15/17 10:05 60 12 125/71 92 01/15/17 10:00 65 15 128/77 99 01/15/17 09:55 60 13 118/73 97 01/15/17 09:50 62 12 124/69 94 01/15/17 09:45 65 12 115/72 85 01/15/17 09:30 77 12 109/68 98 Mechanical Ventilator 40 01/15/17 09:20 98 12 137/97 98 Mechanical Ventilator 40 01/15/17 09:19 40 01/15/17 09:10 77 12 114/76 96 Mechanical Ventilator 40 01/15/17 09:00 36.5 98 12 152/89 97 Mechanical Ventilator 40 Laboratory Results: Last 24 Hours Test 01/15/17 12:24 01/15/17 13:08 01/15/17 16:08 01/16/17 04:04 Blood Gas Sample Site Art Line Bedside Blood Gas pH (LAB) 7.42 Bedside Blood Gas pCO2 (LAB) 34 mmHg Bedside Blood Gas pO2 (LAB) 180 mmHg Bedside Blood Gas HCO3 (LAB) 22 meq/L Bedside Blood Gas Total CO2 23 mEq/l Bedside Blood Gas Base Excess (LAB) -3.0 meq/L Bedside Blood Gas O2 Saturation 100.0 % Maurice Test NA Oxygen Delivery Device Ventilator Bedside Oxygen Rate (breaths/min) 12 Blood Gas Minute Ventilation 5.5 Bedside FiO2 40 % Blood Gas Tidal Volume 500 Blood Gas PEEP 5 Bedside Glucose 98 mg/dl 126 mg/dl White Blood Count 6.55 K/uL Red Blood Count 3.53 M/uL Hemoglobin 10.3 g/dL Hematocrit 32.1 % Mean Corpuscular Volume 90.9 fL Mean Corpuscular Hemoglobin 29.2 pg Mean Corpuscular Hemoglobin Concent 32.1 g/dl Platelet Count 104 K/uL Mean Platelet Volume 11.9 fL Neutrophils (%) (Auto) 84.8 % Lymphocytes (%) (Auto) 7.2 % Monocytes (%) (Auto) 7.8 % Eosinophils (%) (Auto) 0.0 % Basophils (%) (Auto) 0.0 % Neutrophils # (Auto) 5.56 K/uL Lymphocytes # (Auto) 0.47 K/uL Monocytes # (Auto) 0.51 K/uL Eosinophils # (Auto) 0.00 K/uL Basophils # (Auto) 0.00 K/uL RDW Standard Deviation 57.4 fL RDW Coefficient of Variation 17.0 % Immature Granulocyte % (Auto) 0.2 % Immature Granulocyte # (Auto) 0.01 K/uL Prothrombin Time 13.2 SECONDS Prothromb Time International Ratio 1.2 Sodium Level 147 mmol/L Potassium Level 4.0 mmol/L Chloride Level 116 mmol/L Carbon Dioxide Level 27 mmol/L Anion Gap 4.0 mmol/L Blood Urea Nitrogen 4 mg/dl Creatinine 0.57 mg/dl Est Creatinine Clear Calc Drug Dose 99.6 ml/min Estimated GFR () 135.3 Estimated GFR (Non- 116.8 BUN/Creatinine Ratio 7.3 Random Glucose 126 mg/dl Calcium Level 8.1 mg/dl Magnesium Level 2.5 mg/dl Resident Tracking Resident Involvement: Resident Care Provided Care Provided: Adult Hospital Medicine (ICU)
[2017-01-16] MEDS: ACETAMINOPHEN IV 1,000 MG in EMPTY BAG 0 ML IV SCH ×2 (08:19→16:06)
[2017-01-16] MEDS: HYDROmorphone INJ 2 MG/ML SYR/VIAL IV PRN (08:20)
[2017-01-16] MEDS: FLUOXETINE HCL 20 MG CAP PO SCH (08:20)
[2017-01-16] MEDS: ONDANSETRON 8MG OD TAB PO PRN (08:21)
--- NOTE | 2017-01-16 08:34 | Anesthesiology Progress Note ---
Anesthesia Post Op Note Date & Time Jan 16, 2017 at 08:32 Vital Signs Pain Intensity: 6.0 Vital Signs Past 12 Hours Date Time Temp Pulse Resp B/P Pulse Ox O2 Delivery O2 Flow Rate FiO2 01/16/17 06:00 54 12 89/50 97 Nasal Cannula 2.0 96/47 01/16/17 05:00 51 12 96/51 96 Nasal Cannula 2.0 99/48 01/16/17 04:00 93 Nasal Cannula 2.0 01/16/17 04:00 36.9 54 12 85/53 94 Nasal Cannula 2.0 96/51 01/16/17 02:00 59 11 91/45 94 Nasal Cannula 2.0 91/44 01/16/17 00:01 93 Nasal Cannula 2.0 01/16/17 00:00 36.7 70 9 94/48 92 Nasal Cannula 2.0 95/44 01/15/17 22:00 66 109/64 93 Nasal Cannula 2.0 115/65 Notes Mental Status: alert / awake / arousable, participated in evaluation Anesthetic Complications: no major complications apparent
--- NOTE | 2017-01-16 10:56 | OB/GYN Progress Note ---
[employer]ISH[employer] Progress Note Date of Service: Jan 16, 2017. Postop check Patient is seen and examined Feels well, no complaints other than soreness Pain is under control with meds No CP/ SOB/ Dizziness/ N&V/ VB/ Leg pain Not OOB yet Tolerating clears She has multiple questions about surgery, explained per op note Understands pathology pending Date Time Temp Pulse Resp B/P Pulse Ox O2 Delivery O2 Flow Rate FiO2 01/16/17 06:00 54 12 89/50 97 Nasal Cannula 2.0 96/47 01/16/17 05:00 51 12 96/51 96 Nasal Cannula 2.0 99/48 01/16/17 04:00 93 Nasal Cannula 2.0 01/16/17 04:00 36.9 54 12 85/53 94 Nasal Cannula 2.0 96/51 01/16/17 02:00 59 11 91/45 94 Nasal Cannula 2.0 91/44 01/16/17 00:01 93 Nasal Cannula 2.0 01/16/17 00:00 36.7 70 9 94/48 92 Nasal Cannula 2.0 95/44 01/15/17 22:00 66 109/64 93 Nasal Cannula 2.0 115/65 01/15/17 20:02 98 Nasal Cannula 2.0 01/15/17 20:01 36.8 80 16 120/58 95 Nasal Cannula 2.0 129/67 01/15/17 19:01 83 16 104/66 98 Nasal Cannula 2.0 125/64 01/15/17 18:00 72 16 124/64 99 Nasal Cannula 2.0 81/ 01/15/17 16:00 36.7 64 16 101/74 98 Nasal Cannula 2.0 01/15/17 16:00 98 Nasal Cannula 2.0 01/15/17 14:55 59 109/60 93 01/15/17 14:50 62 109/85 94 01/15/17 14:45 56 105/64 91 01/15/17 14:40 56 115/60 88 01/15/17 14:35 58 107/64 78 01/15/17 14:30 59 110/63 84 01/15/17 14:25 58 117/80 82 01/15/17 14:20 58 111/74 87 01/15/17 14:15 61 108/82 96 01/15/17 14:10 62 109/64 01/15/17 14:05 67 105/80 85 01/15/17 14:00 63 120/61 95 01/15/17 13:05 53 12 106/57 98 01/15/17 13:00 53 12 106/62 97 01/15/17 12:55 53 12 102/75 98 01/15/17 12:50 53 12 104/63 99 01/15/17 12:45 52 12 105/71 97 01/15/17 12:40 53 12 106/68 01/15/17 12:35 51 12 108/60 96 01/15/17 12:30 52 12 109/62 95 01/15/17 12:25 54 12 110/65 100 01/15/17 12:20 59 12 113/69 98 01/15/17 12:15 55 12 110/62 97 01/15/17 12:10 52 12 111/65 96 01/15/17 12:06 70 13 115/88 97 01/15/17 12:00 36.6 49 12 103/76 96 01/15/17 12:00 40 01/15/17 12:00 99 Mechanical Ventilator 40 01/15/17 11:55 51 12 107/65 97 01/15/17 11:53 40 01/15/17 11:50 53 12 109/68 97 01/15/17 11:45 54 12 110/65 95 01/15/17 11:40 50 12 105/60 97 01/15/17 11:35 54 12 105/60 99 01/15/17 11:30 51 12 107/61 89 01/15/17 11:15 54 12 105/76 99 01/15/17 11:10 55 12 108/78 92 01/15/17 11:05 49 12 111/61 94 01/15/17 11:00 54 12 109/69 98 01/15/17 10:55 57 12 112/65 97 Test 01/12/17 16:20 01/12/17 16:41 01/14/17 05:18 01/15/17 05:27 Immature Granulocyte % (Auto) 0.2 White Blood Count 4.32 L 3.96 L 3.47 L Red Blood Count 4.13 L 3.77 L 3.96 L Hemoglobin 12.4 11.1 L 11.7 L Hematocrit 36.8 L 34.4 L 36.2 L Mean Corpuscular Volume 89.1 91.2 91.4 Mean Corpuscular Hemoglobin 30.0 29.4 29.5 Mean Corpuscular Hemoglobin Concent 33.7 32.3 32.3 Platelet Count 115 L 91 L 93 L Mean Platelet Volume 12.8 H 11.8 H 13.0 H Neutrophils (%) (Auto) 53.5 Lymphocytes (%) (Auto) 30.3 Monocytes (%) (Auto) 5.8 Eosinophils (%) (Auto) 9.7 Basophils (%) (Auto) 0.5 Neutrophils # (Auto) 2.31 Lymphocytes # (Auto) 1.31 Monocytes # (Auto) 0.25 Eosinophils # (Auto) 0.42 Basophils # (Auto) 0.02 Immature Granulocyte # (Auto) 0.01 Platelet Estimate DECREASED L DECREASED L Large Platelets 2+ Total Bilirubin 0.4 Direct Bilirubin < 0.1 Aspartate Amino Transferase (AST) 15 Alanine Aminotransferase (ALT) 22 Alkaline Phosphatase 103 Total Protein 7.0 Albumin 3.3 L Lipase 245 CA 15-3 Antigen Pending CA 125 Antigen Pending Human Chorionic Gonadotropin, Qual NEG Urine Color YELLOW Urine Appearance CLEAR Urine pH >= 9.0 H Urine Specific Joes 1.006 Urine Protein NEG Urine Glucose (UA) NEG Urine Ketones NEG Urine Occult Blood NEG Urine Nitrite NEG Urine Bilirubin NEG Urine Urobilinogen NEG Urine Leukocyte Esterase NEG RDW Standard Deviation 56.9 H 56.0 H RDW Coefficient of Variation 16.9 H 16.8 H Prothrombin Time 10.7 11.4 Prothrombin Time INR 1.0 1.1 Sodium Level 146 H 148 H Potassium Level 4.0 4.0 Chloride Level 112 H 114 H Carbon Dioxide Level 28 28 Anion Gap 6.0 6.0 Blood Urea Nitrogen 14 # 8 # Creatinine 0.72 0.71 Est Creatinine Clear Calc Drug Dose 78.8 79.9 Estimated GFR () 122.3 124.4 Estimated GFR (Non- 105.5 107.3 BUN/Creatinine Ratio 19.5 10.8 Random Glucose 94 89 Calcium Level 9.3 8.8 Magnesium Level 2.6 H Test 01/15/17 12:24 01/15/17 13:08 01/15/17 16:08 01/16/17 04:04 Blood Gas Sample Site Art Line POC Blood Gas pH 7.42 POC Blood Gas pCO2 34 L POC Blood Gas pO2 180 H POC Blood Gas HCO3 22 POC Blood Gas Total CO2 23 L POC Blood Gas Base Excess -3.0 POC Blood Gas O2 Saturation 100.0 H Maurice Test NA Oxygen Delivery Device Ventilator POC Oxygen Rate (breaths/min) 12 Blood Gas Minute Ventilation 5.5 POC FiO2 40 Blood Gas Tidal Volume 500 Blood Gas PEEP 5 POC Glucose 98 H 126 H White Blood Count 6.55 Red Blood Count 3.53 L Hemoglobin 10.3 L Hematocrit 32.1 L Mean Corpuscular Volume 90.9 Mean Corpuscular Hemoglobin 29.2 Mean Corpuscular Hemoglobin Concent 32.1 Platelet Count 104 L Mean Platelet Volume 11.9 H Neutrophils (%) (Auto) 84.8 Lymphocytes (%) (Auto) 7.2 Monocytes (%) (Auto) 7.8 Eosinophils (%) (Auto) 0.0 Basophils (%) (Auto) 0.0 Neutrophils # (Auto) 5.56 Lymphocytes # (Auto) 0.47 L Monocytes # (Auto) 0.51 Eosinophils # (Auto) 0.00 Basophils # (Auto) 0.00 RDW Standard Deviation 57.4 H RDW Coefficient of Variation 17.0 H Immature Granulocyte % (Auto) 0.2 Immature Granulocyte # (Auto) 0.01 Prothrombin Time 13.2 H Prothrombin Time INR 1.2 H Sodium Level 147 H Potassium Level 4.0 Chloride Level 116 H Carbon Dioxide Level 27 Anion Gap 4.0 Blood Urea Nitrogen 4 L Creatinine 0.57 L Est Creatinine Clear Calc Drug Dose 99.6 Estimated GFR () 135.3 Estimated GFR (Non- 116.8 BUN/Creatinine Ratio 7.3 L Random Glucose 126 H Calcium Level 8.1 L Magnesium Level 2.5 H PE: General: Alert, orientedx3, NAD CVS: S1S2 RRR Lungs: CTAB Abd: soft, NT, ND, BS+, Incision/ aarti C/D/I No VB Ext: NT, no edema, SCD's on AP: 41 yo female s/p Ex lap, LSO , pod#1 VSS Afebrile doing well Continue to routine postop care Encourage PO intake, may ambulate
[2017-01-16] MEDS ORDERED: NURSING DECISION MEDICATION ORDER SCH (13:15)
--- NOTE | 2017-01-16 16:46 | Progress Note ---
Internal Med Progress Note Date of Service: Jan 16, 2017. Provider Documentation: SUBJECTIVE: sitting up on chair , eating lunch complains of pain in abdomen /incision site no fever or chills tolerating regular diet well, no nausea not able to pass gas yet , no BM visiting OBJECTIVE: Vital Signs-as noted below Exam: General-young female, in distress due to surgical site pain Eyes-sclera non icteric ENT-NAd Lungs-CTA Heart-regular S1/S2 Abdomen-soft, surgical incision aarti intact,no drainage Extremities-no lower ext edema Neuro-AAO x3, no foal deficit Lab data as noted below. ASSESSMENT & PLAN: This is a 41 year old female with PMH of muscular dystrophy, chronic thrombocytopenia, Factor V Leiden mutation, hx. of PE on Coumadin presented with worsening nausea/vomiting and subsequently found to have cystic mass superior to the bladder LEFT OVARIAN Cystic Mass S/P left ovarian mass excised on 01/15 POD #1 recovering well post op appreciate input form [employer] Pathology : Benign ovarian Cyst Adenoma /no malignancy seen Pt and updated pathology report diet advanced to regular -tolerating well increase activity as tolerated pain control stable to be transferred out of ICU to medical floor Factor V Leiden mutation Hx. of PE cont Lovenox bridge Coumadin will be resumed when low bleeding risk post op will D/w IBM BPM ARCHITECT DVT ppx Lovenox therapeutic dose FULL CODE DISPOSITION expected to return home when medically stable given update at bedside Vital Signs: Date Time Temp Pulse Resp B/P Pulse Ox O2 Delivery O2 Flow Rate FiO2 01/16/17 16:00 Nasal Cannula 2.0 01/16/17 16:00 36.8 58 20 95/52 90 Nasal Cannula 2.0 01/16/17 14:00 60 16 92/60 90 Nasal Cannula 2.0 01/16/17 12:00 36.7 65 16 98/51 97 Nasal Cannula 2.0 01/16/17 12:00 95 Nasal Cannula 2.0 01/16/17 10:00 60 16 92/58 98 2.0 01/16/17 08:00 36.7 62 17 96/51 97 Nasal Cannula 2.0 96/47 01/16/17 08:00 95 Nasal Cannula 2.0 01/16/17 06:00 54 12 89/50 97 Nasal Cannula 2.0 96/47 01/16/17 05:00 51 12 96/51 96 Nasal Cannula 2.0 99/48 01/16/17 04:00 93 Nasal Cannula 2.0 01/16/17 04:00 36.9 54 12 85/53 94 Nasal Cannula 2.0 96/51 01/16/17 02:00 59 11 91/45 94 Nasal Cannula 2.0 91/44 01/16/17 00:01 93 Nasal Cannula 2.0 01/16/17 00:00 36.7 70 9 94/48 92 Nasal Cannula 2.0 95/44 01/15/17 22:00 66 109/64 93 Nasal Cannula 2.0 115/65 01/15/17 20:02 98 Nasal Cannula 2.0 01/15/17 20:01 36.8 80 16 120/58 95 Nasal Cannula 2.0 129/67 01/15/17 19:01 83 16 104/66 98 Nasal Cannula 2.0 125/64 01/15/17 18:00 72 16 124/64 99 Nasal Cannula 2.0 81/ Lab Results: Results Past 24 Hours Test 01/16/17 04:04 Range/Units White Blood Count 6.55 4.8-10.8 K/uL Red Blood Count 3.53 4.2-5.4 M/uL Hemoglobin 10.3 12.0-16.0 g/dL Hematocrit 32.1 37-47 % Mean Corpuscular Volume 90.9 80-100 fL Mean Corpuscular Hemoglobin 29.2 25-34 pg Mean Corpuscular Hemoglobin Concent 32.1 32-36 g/dl Platelet Count 104 130-400 K/uL Mean Platelet Volume 11.9 7.4-10.4 fL Neutrophils (%) (Auto) 84.8 % Lymphocytes (%) (Auto) 7.2 % Monocytes (%) (Auto) 7.8 % Eosinophils (%) (Auto) 0.0 % Basophils (%) (Auto) 0.0 % Neutrophils # (Auto) 5.56 1.4-6.5 K/uL Lymphocytes # (Auto) 0.47 1.2-3.4 K/uL Monocytes # (Auto) 0.51 0.11-0.59 K/uL Eosinophils # (Auto) 0.00 0-0.5 K/uL Basophils # (Auto) 0.00 0-0.2 K/uL RDW Standard Deviation 57.4 36.4-46.3 fL RDW Coefficient of Variation 17.0 11.5-14.5 % Immature Granulocyte % (Auto) 0.2 % Immature Granulocyte # (Auto) 0.01 0.00-0.02 K/uL Prothrombin Time 13.2 9.0-12.0 SECONDS Prothromb Time International Ratio 1.2 0.9-1.1 Sodium Level 147 136-145 mmol/L Potassium Level 4.0 3.5-5.1 mmol/L Chloride Level 116 98-107 mmol/L Carbon Dioxide Level 27 21-32 mmol/L Anion Gap 4.0 3-11 mmol/L Blood Urea Nitrogen 4 7-18 mg/dl Creatinine 0.57 0.60-1.20 mg/dl Est Creatinine Clear Calc Drug Dose 99.6 ml/min Estimated GFR () 135.3 Estimated GFR (Non- 116.8 BUN/Creatinine Ratio 7.3 10-20 Random Glucose 126 70-99 mg/dl Calcium Level 8.1 8.5-10.1 mg/dl Magnesium Level 2.5 1.8-2.4 mg/dl
[2017-01-16] MEDS ORDERED: ACETAMINOPHEN IV 100 ML IV PRN (17:00)
[2017-01-16] MEDS: HYDROmorphone INJ 1 MG/ML SYR IV PRN ×2 (17:09→22:40)
[2017-01-16] MEDS: NON-FORMULARY PATIENT'S OWN MED PO SCH (21:30)
[2017-01-17] MEDS: OXYCODONE/ACETAMINOPHEN 5-325 TAB PO PRN ×2 (06:25→07:18)
[2017-01-17 07:20] VITALS: BP 98/71; PULSE 70; TEMP 36.6; O2SAT 97
[2017-01-17 07:23] LABS: INR 1.1 (0.9-1.1); PROTHROMBIN TIME (PATIENT) 11.3 SECONDS (9.0-12.0)
[2017-01-17 07:50] LABS: HEMATOCRIT 33.3 % (37-47); MEAN CELL VOLUME 92.5 fL (80-100); MEAN CORPUSCULAR HEMOGLOBIN 29.7 pg (25-34); MEAN CORPUSCULAR HGB CONC 32.1 g/dl (32-36); MEAN PLATELET VOLUME 12.1 fL (7.4-10.4); PLATELET COUNT 104 K/uL (130-400); WHITE BLOOD COUNT 4.65 K/uL (4.8-10.8)
[2017-01-17 07:51] LABS: PLT ESTIMATE DECREASED
--- NOTE | 2017-01-17 08:45 | OB/GYN Progress Note ---
TRANSPORTATION MAINTENANCE WORKER Progress Note Date of Service Jan 17, 2017. Subjective conversation w/ patient, physical exam Ambulation: limited ambulation Voiding: no voiding problems Passing Gas: Yes Diet Tolerance: Regular Diet Pain: 8/10 Notes: Patient overall improving. States pain is still quiet significant. Medicine has ordered oral dilaudid as this seems to help her the most. Still reluctant to ambulate. Tolerating regular diet, +flatus, +BM. Objective Vital Signs Date Time Temp Pulse Resp B/P Pulse Ox O2 Delivery O2 Flow Rate FiO2 01/16/17 23:50 Room Air 01/16/17 23:50 36.7 61 14 87/53 94 Room Air 01/16/17 20:49 36.5 61 16 92/61 94 Room Air 01/16/17 18:53 36.9 60 18 113/67 99 Room Air 01/16/17 18:11 36.8 58 20 90 2.0 01/16/17 16:00 Nasal Cannula 2.0 01/16/17 16:00 36.8 58 20 95/52 90 Nasal Cannula 2.0 01/16/17 14:00 60 16 92/60 90 Nasal Cannula 2.0 01/16/17 12:00 36.7 65 16 98/51 97 Nasal Cannula 2.0 01/16/17 12:00 95 Nasal Cannula 2.0 01/16/17 10:00 60 16 92/58 98 2.0 Physical Exam General Appearance: WELL-APPEARING Respiratory/Chest: chest non-tender, lungs clear Cardiovascular: regular rate, rhythm Abdomen: normal bowel sounds, soft Incision Description: Clean, Dry & Intact Extremities: normal range of motion, non-tender, no calf tenderness Laboratory Results Last 24 Hours Test 01/17/17 06:35 White Blood Count 4.65 K/uL Red Blood Count 3.60 M/uL Hemoglobin 10.7 g/dL Hematocrit 33.3 % Mean Corpuscular Volume 92.5 fL Mean Corpuscular Hemoglobin 29.7 pg Mean Corpuscular Hemoglobin Concent 32.1 g/dl RDW Standard Deviation 59.2 fL RDW Coefficient of Variation 17.4 % Platelet Count 104 K/uL Mean Platelet Volume 12.1 fL Platelet Estimate DECREASED Prothrombin Time 11.3 SECONDS Prothromb Time International Ratio 1.1 Assessment and Plan Post-Op Day Number: 2 Continue Routine Care: 41 yo female s/p Ex lap, LSO , pod#2 Benign pathology VSS Afebrile doing well Continue routine postop care Encourage ambulation Ok to D/C home from SWING RIDE OPERATOR standpoint Will need to follow up in 1 week for staple removal.
[2017-01-17] MEDS: FLUOXETINE HCL 20 MG CAP PO SCH (09:00)
[2017-01-17] MEDS: HYDROmorphone HCL 2 MG TAB PO PRN ×3 (09:01→17:20)
[2017-01-17] MEDS: ENOXAPARIN 60 MG/0.6 ML SYR SQ SCH ×2 (10:48→23:01)
[2017-01-17 11:30] VITALS: BP 81/51; PULSE 59; TEMP 36.9; O2SAT 96
[2017-01-17 15:25] VITALS: BP 100/67; PULSE 64; TEMP 36.8; O2SAT 97
--- NOTE | 2017-01-17 17:26 | Progress Note ---
Internal Med Progress Note Date of Service: Jan 17, 2017. Provider Documentation: SUBJECTIVE: pain much better today , PO Dilaudid helps able to be OOB tolerating regular diet well no fever or chills OBJECTIVE: Vital Signs-as noted below Exam: General-young female, not in distress Eyes-sclera non icteric ENT-NAd Lungs-CTA Heart-regular S1/S2 Abdomen-soft, surgical incision aarti intact in lower abdomen -appears to heal well ,no drainage Extremities-no lower ext edema Neuro-AAO x3, no foal deficit Lab data as noted below. ASSESSMENT & PLAN: This is a 41 year old female with PMH of muscular dystrophy, chronic thrombocytopenia, Factor V Leiden mutation, hx. of PE on Coumadin presented with worsening nausea/vomiting and subsequently found to have cystic mass superior to the bladder LEFT OVARIAN Cystic Mass S/P left ovarian mass excised on 01/15 POD # 2 recovering well post op appreciate input form LEAD PHP DEVELOPER Pathology : Benign ovarian Cyst Adenoma /no malignancy seen Pt and updated pathology report diet advanced to regular -tolerating well increase activity as tolerated pain control with Po Dilaudid ' evaluated by Territory Business Manager today out pt follow up in 1 week for staple removal Factor V Leiden mutation Hx. of PE cont Lovenox bridge Coumadin will be resumed tomorrow DVT ppx Lovenox therapeutic dose FULL CODE DISPOSITION expected to return home when medically stable Vital Signs: Date Time Temp Pulse Resp B/P Pulse Ox O2 Delivery O2 Flow Rate FiO2 01/17/17 15:25 97 Room Air 01/17/17 15:25 36.8 64 18 100/67 97 Room Air 01/17/17 11:30 36.9 59 18 81/51 96 Room Air 01/17/17 07:20 97 Room Air 01/17/17 07:20 36.6 70 18 98/71 97 Room Air 01/16/17 23:50 Room Air 01/16/17 23:50 36.7 61 14 87/53 94 Room Air 01/16/17 20:49 36.5 61 16 92/61 94 Room Air 01/16/17 18:53 36.9 60 18 113/67 99 Room Air 01/16/17 18:11 36.8 58 20 90 2.0 Lab Results: Results Past 24 Hours Test 01/17/17 06:35 Range/Units White Blood Count 4.65 4.8-10.8 K/uL Red Blood Count 3.60 4.2-5.4 M/uL Hemoglobin 10.7 12.0-16.0 g/dL Hematocrit 33.3 37-47 % Mean Corpuscular Volume 92.5 80-100 fL Mean Corpuscular Hemoglobin 29.7 25-34 pg Mean Corpuscular Hemoglobin Concent 32.1 32-36 g/dl RDW Standard Deviation 59.2 36.4-46.3 fL RDW Coefficient of Variation 17.4 11.5-14.5 % Platelet Count 104 130-400 K/uL Mean Platelet Volume 12.1 7.4-10.4 fL Platelet Estimate DECREASED Prothrombin Time 11.3 9.0-12.0 SECONDS Prothromb Time International Ratio 1.1 0.9-1.1 Microbiology Results 01/16/17 C.difficile Toxin B Gene (PCR) - Final, Complete No C. difficile toxin B gene detected 01/16/17 Shiga Toxin Test, Received Pending 01/16/17 Stool Culture, Received Pending
[2017-01-17 20:20] VITALS: BP 115/76; PULSE 72; TEMP 36.5; O2SAT 93
[2017-01-17] MEDS: DOCUSATE SODIUM 100 MG CAP PO SCH (20:36)
[2017-01-17] MEDS: NON-FORMULARY PATIENT'S OWN MED PO SCH (20:50)
[2017-01-17 23:05] VITALS: BP 92/62; PULSE 71; TEMP 37.1; O2SAT 95
[2017-01-18] MEDS: HYDROmorphone HCL 2 MG TAB PO PRN ×4 (01:32→21:10)
[2017-01-18 03:35] VITALS: BP 95/61; PULSE 73; TEMP 37.3; O2SAT 93
[2017-01-18 08:00] VITALS: BP 109/74; PULSE 80; TEMP 36.7; O2SAT 95
[2017-01-18] MEDS: DOCUSATE SODIUM 100 MG CAP PO SCH ×2 (08:25→21:10)
[2017-01-18] MEDS: FLUOXETINE HCL 20 MG CAP PO SCH (08:26)
[2017-01-18] MEDS: ENOXAPARIN 60 MG/0.6 ML SYR SQ SCH ×2 (10:39→22:45)
[2017-01-18 15:30] VITALS: BP 107/70; PULSE 64; TEMP 36.9; O2SAT 99
[2017-01-18] MEDS ORDERED: WARFARIN SOD 4 MG TAB PO ONE (16:30)
--- NOTE | 2017-01-18 16:41 | Progress Note ---
Internal Med Progress Note Date of Service: Jan 18, 2017. Provider Documentation: SUBJECTIVE: able to be OOB , had bowel movement yesterday no fever and chills pain has improved a bit , still having significant discomfort on movement and change of position pt's mother present at bedside mentions pt was able to walk in hallway earlier with assistance evaluated by TECHNICAL MANAGER -signed off by them , stable post op , out pt follow up in a week for aarti removal Discussed discharge planning with patient and her mother possible discharge home tomorrow if incision pain better controlled OBJECTIVE: Vital Signs-as noted below Exam: General-young female, not in distress , sitting up on chair Eyes-sclera non icteric ENT-NAd Lungs-CTA Heart-regular S1/S2 Abdomen-soft, surgical incision aarti intact in lower abdomen -appears to heal well ,no drainage Extremities-no lower ext edema Neuro-AAO x3, no foal deficit Lab data as noted below. ASSESSMENT & PLAN: This is a 41 year old female with PMH of muscular dystrophy, chronic thrombocytopenia, Factor V Leiden mutation, hx. of PE on Coumadin presented with worsening nausea/vomiting and subsequently found to have cystic mass superior to the bladder LEFT OVARIAN Cystic Mass S/P left ovarian mass excised on 01/15 POD # 3 recovering well post op appreciate input form CAM MILLING MACHINE OPERATOR stable post op recovery out pt follow up in 1 week for staple removal Pathology : Benign ovarian Cyst Adenoma /no malignancy seen Pt and updated the pathology tolerating regular diet well had bowel movement yesterday on PO Dilaudid PRN for pain control Patient is counselled for continued stool softener to prevent Narcotic induced constipation /illeus Factor V Leiden mutation Hx. of PE cont Lovenox bridge Coumadin resumed will be discharged home with Lovenox bridge and Coumadin DVT ppx Lovenox therapeutic dose Coumadin resumed FULL CODE DISPOSITION possible discharge home tomorrow will be discharged on Coumadin and Lovenox bridge therapy PT/INR check in 2-3 days Anticoagulation clinic follow up for monitoring of PT/INR ; Lovenox bridge therapy /Coumadin dosing Family physician follow up with Dr Michelle Vital Signs: Date Time Temp Pulse Resp B/P Pulse Ox O2 Delivery O2 Flow Rate FiO2 01/18/17 15:30 99 Room Air 01/18/17 15:30 36.9 64 18 107/70 99 Room Air 01/18/17 08:00 36.7 80 20 109/74 95 Room Air 01/18/17 08:00 95 Room Air 01/18/17 03:35 37.3 73 16 95/61 93 Room Air 01/17/17 23:05 95 Room Air 01/17/17 23:05 37.1 71 18 92/62 95 Room Air 01/17/17 20:20 36.5 72 18 115/76 93 Room Air
[2017-01-18] MEDS ORDERED: MRLP17X PO (16:48)
[2017-01-18] MEDS ORDERED: HYDR2TAB3 PO (16:48)
[2017-01-18] MEDS ORDERED: CLC100 PO (16:48)
[2017-01-18] MEDS ORDERED: LVNIS60 SQ (16:48)
--- NOTE | 2017-01-18 16:53 | Discharge Instructions ---
Discharge Instructions Date of Service Jan 18, 2017. Admission Reason for Admission: Abdominal Mass, Abdominal Pain Discharge Discharge Diagnosis / Problem: OVARIAN CYST S/P RESECTION , BENIGN PATHOLOGY Discharge Goals Goal(s): Decrease discomfort, Increase independence, Improve disease control, Diagnostic testing, Therapeutic intervention Activity Recommendations Activity Limitations: resume your previous activity . Instructions / Follow-Up Instructions / Follow-Up HOSPITAL FOLLOW UP ON 01/28/2017 @ 11:20 AM WITH Rell Michelle MD Family Practice [facility] FOLLOW UP WITH REGULATORY INTERN ON 01/27/2017 @ 1:30 PM Pam Browne CNM [facility] Gynecology/Obstetrics FOR CATY REMOVAL AND INCISION CHECK CHECK PT/INR IN 3 DAYS ON 01/22/17 YOUR ARE BEING DISCHARGED WITH BOTH LOVENOX INJECTION AND COUMADIN PLEASE FOLLOW UP WITH ANTICOAGULATION CLINIC FOR FURTHER RECOMMENDATION LOVENOX SHOULD BE DISCONTINUED WHEN INR ~2 THEN YOU CAN CONTINUE ONLY WITH COUMADIN DRINK PLENTY OF FLUID , ADD EXTRA FIBER TO YOUR DIET FIBER SUPPLEMENTS , STOOL SOFTENER TO PREVENT CONSTIPATION WHILE TAKING PAIN MEDS PLEASE NOTIFY YOUR PHYSICIAN IF YOUR PAIN GETTING WORSE, HAVING FEVER , CHILLS , DRAINAGE AT THE SURGICAL INCISION SITE Current Hospital Diet Patient's current hospital diet: Regular Diet Discharge Diet Recommended Diet: Regular Diet Procedures Procedures Performed: Exploratory laparotomy pelvic washings excision of left ovarian mass Pending Studies Studies pending at discharge: yes (PT /INR IN 3 DAYS) List of pending studies: LAB WORK : PT/INR CHECK IN ON 01/22/17 Medical Emergencies . Who to Call and When: Medical Emergencies: If at any time you feel your situation is an emergency, please call 911 immediately. . Non-Emergent Contact Non-Emergency issues call your: Primary Care Provider . . "Provider Documentation" section prepared by Josephine Silva. VTE Core Measure Inpt VTE Proph given/why not?: Enoxaparin (Lovenox)SQ, Warfarin (Coumadin)
[2017-01-18] MEDS: NON-FORMULARY PATIENT'S OWN MED PO SCH (21:00)
[2017-01-19 00:30] VITALS: BP 99/62; PULSE 58; TEMP 36.7; O2SAT 93
[2017-01-19 07:50] VITALS: BP 98/64; PULSE 63; TEMP 36.9; O2SAT 96
[2017-01-19] MEDS: DOCUSATE SODIUM 100 MG CAP PO SCH (07:52)
[2017-01-19] MEDS: FLUOXETINE HCL 20 MG CAP PO SCH (07:53)
[2017-01-19] MEDS: HYDROmorphone HCL 2 MG TAB PO PRN (07:54)
--- NOTE | 2017-01-19 08:40 | Surgery Progress Note ---
Surgery Progress Note Date of Service Jan 19, 2017. Subjective Post OP Day: 4 + ambulating, + diet, + feeling well, + flatus, + pain controlled Objective Vital Signs: Date Time Temp Pulse Resp B/P Pulse Ox O2 Delivery O2 Flow Rate FiO2 01/19/17 07:50 36.9 63 18 98/64 96 Room Air 01/19/17 07:50 Room Air 01/19/17 00:30 93 Room Air 01/19/17 00:30 36.7 58 16 99/62 93 Room Air 01/18/17 15:30 99 Room Air 01/18/17 15:30 36.9 64 18 107/70 99 Room Air General Appearance: no apparent distress Abdomen: non tender, non distended, soft Extremities: non-tender, normal inspection, no pedal edema, no calf tenderness Assessment & Plan regular diet Discharged
--- NOTE | 2017-01-19 08:44 | Discharge Instructions ---
Discharge Instructions Date of Service Jan 19, 2017. Admission Reason for Admission: Abdominal Mass, Abdominal Pain Discharge Discharge Diagnosis / Problem: left pelvic mass Discharge Goals Goal(s): Routine recovery after surgery, Continuing BOOK EDITOR care Activity Recommendations Activity Limitations: as noted below Lifting Limitations: no more than 10 pounds Exercise/Sports Limitations: gradually increase as tolerated, until after follow-up appointment May Resume Sexual Activity: after follow-up appointment Driving or Machine Use: . Instructions / Follow-Up Instructions / Follow-Up follow up this week in office for staple removal Current Hospital Diet Patient's current hospital diet: Regular Diet Discharge Diet Recommended Diet: Regular Diet Fluid Restriction: None Procedures Procedures Performed: Exploratory laparotomy pelvic washings excision of left ovarian mass Pending Studies Studies pending at discharge: no Medical Emergencies . Who to Call and When: Medical Emergencies: If at any time you feel your situation is an emergency, please call 911 immediately. . Non-Emergent Contact Non-Emergency issues call your: Primary Care Provider . . "Provider Documentation" section prepared by Jus Thorpe. VTE Core Measure Inpt VTE Proph given/why not?: Enoxaparin (Lovenox)SQ, Warfarin (Coumadin)
[2017-01-19 09:05] VITALS: BP 98/64; PULSE 63; TEMP 36.9; O2SAT 96
--- NOTE | 2017-01-19 10:42 | Discharge Summary ---
Discharge Summary Date of Service Jan 19, 2017. Discharge Summary Admission Date: Jan 12, 2017 at 20:29 Discharge Date: Jan 19, 2017 Discharge Disposition: Home Principal Diagnosis: OVARIAN CYST S/P RESECTION , BENIGN PATHOLOGY Procedures: ABDOMEN AND PELVIS CT WITH IV AND ORAL CONTRAST IMPRESSION: 1. 13 x 12 cm cystic lesion immediately superior to the bladder. 2. Diagnostic considerations must include cystic ovarian neoplastic process versus large ovarian simple cyst PELVIC ULTRASOUND CLINICAL HISTORY: pelvic mass ABNORMAL CT EXAM COMPARISON STUDY: CT same date FINDINGS: The uterus measured 8.4 cm. The endometrial stripe measured 11 mm. The right ovary measured 2.9 cm with normal vascular flow. The left ovary measured not identified. 13 x 9 cm cystic mass superior to the bladder. This potentially relates to the left ovary as a left ovary is not well seen. There was no evidence of pathologic free pelvic fluid. IMPRESSION: 13 x 9 cm cystic mass superior to the bladder. This may relate to the left ovary as a left ovary is not identified as a separate entity. Differential considerations remain a large ovarian cyst versus cystic neoplastic process. Procedures Performed: Exploratory laparotomy pelvic washings excision of left ovarian mass Consultations: CRISTINO CIVIL ENGINEERING PROFESSOR SHOWCASE TRIMMER Medication Reconciliation New Medications: Docusate Sodium (Docusate Sodium) 100 Mg Cap 100 MG PO BID for 10 Days, #20 CAP OVER THE COUNTER CONTINUE TO TAKE WHILE TAKING NARCOTIC PAIN MEDS TO PREVENT CONSTIPATION Enoxaparin (Enoxaparin Sodium) 60 Mg/0.6 Ml Inj 60 MG SQ Q12 for 5 Days, #10 EA Hydromorphone HCl (Hydromorphone HCl) 2 Mg Tab 2 MG PO Q6 PRN for Pain, #30 TAB Polyethylene (Miralax) 17 Gm Pow 17 GM PO DAILY PRN for Constipation for 10 Days OVER THE COUNTER CONTINUE TO TAKE WHILE TAKING PAIN MEDS TO PREVENT CONSTIPATION Continued Medications: Acetaminophen Tab (Tylenol) 325 Mg Tab 650 MG PO UD, TAB Fluoxetine (Prozac) 40 Mg Cap 40 MG PO QAM Melatonin (Melatonin Maximum Strengt) 5 Mg Tab 1 TAB PO HS for 30 Days, #30 TAB Warfarin Sod (Jantoven) 4 Mg Tab 12 MG PO 3XWK, TAB THURSDAY, THURSDAY, THURSDAY Warfarin Sod (Jantoven) 4 Mg Tab 8 MG PO 4XWK, TAB THURSDAY, THURSDAY, THURSDAY, THURSDAY. Referrals At Discharge Follow up Referrals: Director Of Front Office Referral - 01/27/17 with Pam Browne CNM Physician Referral - 01/28/17 with Rell Michelle M.D. Admission Information HPI (per Admitting provider): This is a 41 yo F with past medical hx of Myotonic muscular dystrophy , Factor V Leiden deficiency , Hx of PE , on Coumadin presented to ED with complain of Nausea /Vomiting /Diarrhea started last Thursday Pt mentions of having vomiting 10 times a day , unable to keep any thing down, diffuse lower abdominal pain Loose stool , denies of any sick contact, no travel hx , no other member of house hold had similar symptom pt mentions of having episodes of chills but no fever no urinary symptoms felt well over the weekend Thursday -developed severe crampy abdominal pain radiation to back in the ER her labs were unremarkable , except for INR being sub therapeutic UA -negative CT abdomen /pelvis shows : 13 x 9 cm cystic mass superior to the bladder. This may relate to the left ovary as a left ovary is not identified as a separate entity. Differential considerations remain a large ovarian cyst versus cystic neoplastic process. no evidence of bowel obstruction pt personally does not have any hx of Door Operator malignancy Physical Exam (per Admitting): General Appearance: no apparent distress Head: normocephalic, atraumatic Eyes: sclerae normal Neck: supple, trachea midline Respiratory/Chest: chest non-tender, lungs clear, normal breath sounds, no respiratory distress Cardiovascular: regular rate, rhythm Abdomen/GI: normal bowel sounds, soft, + pertinent finding (let lower quadrant tenderness on palpation ,no rebound ) Extremities/Musculoskelatal: normal inspection, no calf tenderness, normal capillary refill, no pedal edema Neurologic/Psych: no motor/sensory deficits, alert, normal mood/affect, oriented x 3 Skin: normal color, warm/dry, no rash Hospital Course This is a 41 year old female with PMH of muscular dystrophy, chronic thrombocytopenia, Factor V Leiden mutation, hx. of PE on Coumadin presented with worsening nausea/vomiting and subsequently found to have cystic mass superior to the bladder LEFT OVARIAN Cystic Mass S/P left ovarian mass excised on 01/15 POD # 4 recovering well post op appreciate input form ORDNANCE TRUCK INSTALLATION MECHANIC stable post op recovery out pt follow up in 1 week for staple removal stable to be discharged home today Pathology : Benign ovarian Cyst Adenoma /no malignancy seen Pt and updated the pathology tolerating regular diet well had bowel movement yesterday on PO Dilaudid PRN for pain control Patient is counselled for continued stool softener to prevent Narcotic induced constipation /illeus Factor V Leiden mutation Hx. of PE cont Lovenox bridge Coumadin resumed will be discharged home with Lovenox bridge and Coumadin DVT ppx Lovenox therapeutic dose Coumadin resumed FULL CODE DISPOSITION discharge home today will be discharged on Coumadin and Lovenox bridge therapy PT/INR check in 2-3 days Anticoagulation clinic follow up for monitoring of PT/INR ; Lovenox bridge therapy /Coumadin dosing Family physician follow up with Dr Michelle Door Operator follow up [facility] Total time spent on discharge = 40 MINS This includes examination of the patient, discharge planning, medication reconciliation, and communication with other providers. Discharge Instructions Discharge Instructions Date of Service Jan 18, 2017. Admission Reason for Admission: Abdominal Mass, Abdominal Pain Discharge Discharge Diagnosis / Problem: OVARIAN CYST S/P RESECTION , BENIGN PATHOLOGY Discharge Goals Goal(s): Decrease discomfort, Increase independence, Improve disease control, Diagnostic testing, Therapeutic intervention Activity Recommendations Activity Limitations: resume your previous activity . Instructions / Follow-Up Instructions / Follow-Up HOSPITAL FOLLOW UP ON 01/28/2017 @ 11:20 AM WITH Rell Michelle MD Family Practice [facility] FOLLOW UP WITH CIVIL ENGINEERING PROFESSOR ON 01/27/2017 @ 1:30 PM Pam Browne CNM [facility] Gynecology/Obstetrics FOR CATY REMOVAL AND INCISION CHECK CHECK PT/INR IN 3 DAYS ON 01/22/17 YOUR ARE BEING DISCHARGED WITH BOTH LOVENOX INJECTION AND COUMADIN PLEASE FOLLOW UP WITH ANTICOAGULATION CLINIC FOR FURTHER RECOMMENDATION LOVENOX SHOULD BE DISCONTINUED WHEN INR ~2 THEN YOU CAN CONTINUE ONLY WITH COUMADIN DRINK PLENTY OF FLUID , ADD EXTRA FIBER TO YOUR DIET FIBER SUPPLEMENTS , STOOL SOFTENER TO PREVENT CONSTIPATION WHILE TAKING PAIN MEDS PLEASE NOTIFY YOUR PHYSICIAN IF YOUR PAIN GETTING WORSE, HAVING FEVER , CHILLS , DRAINAGE AT THE SURGICAL INCISION SITE Current Hospital Diet Patient's current hospital diet: Regular Diet Discharge Diet Recommended Diet: Regular Diet Procedures Procedures Performed: Exploratory laparotomy pelvic washings excision of left ovarian mass Pending Studies Studies pending at discharge: yes (PT /INR IN 3 DAYS) List of pending studies: LAB WORK : PT/INR CHECK IN ON 01/22/17 Medical Emergencies . Who to Call and When: Medical Emergencies: If at any time you feel your situation is an emergency, please call 911 immediately. . Non-Emergent Contact Non-Emergency issues call your: Primary Care Provider . . "Provider Documentation" section prepared by Josephine Silva. VTE Core Measure Inpt VTE Proph given/why not?: Enoxaparin (Lovenox)SQ, Warfarin (Coumadin) Additional Copies To Rell Michelle M.D. [place], Heidi m CRNP, LINDAM
[2017-01-19] MEDS ORDERED: WARFARIN SOD 6 MG TAB PO ONE (11:00)
[2017-01-19] MEDS: ENOXAPARIN 60 MG/0.6 ML SYR SQ SCH (11:10)
[2017-01-19 12:11] LABS: PROTHROMBIN TIME (PATIENT) 10.8 SECONDS (9.0-12.0)
[2017-01-19] MEDS ORDERED: WARFARIN SOD 6 MG TAB PO SCH (16:00)
[2017-07-09] MEDS ORDERED: WARF4TAB8 PO ×2 (13:11)
== END 2017-01-19 12:00 | disposition home or self-care (01) | DRG 742 ==
LOC: ENRESERVDT → ENRESERVTM → EDBD 15:50 → C.EDB 15:51 → C.4E 20:29 → C.MSICU 01-15 09:50 → C.MS4N 01-16 16:57
PROVIDERS: ADMIT Hospitalist; ATTEND Hospitalist
PROC: 0UB Female Reproductive System, Excision (ICD-10-PCS; principal; 2017-01-15 07:15)
PROC: 0WJJ0ZZ Inspection of Pelvic Cavity, Open Approach (ICD-10-PCS; principal; 2017-01-15 07:15)
DX: N83.202 Unspecified ovarian cyst, left side (principal); K22.6 Gastro-esophageal laceration-hemorrhage syndrome; D68.51 Activated protein C resistance; G71.0 Muscular dystrophy; K21.9 Gastro-esophageal reflux disease without esophagitis; Z86.711 Personal history of pulmonary embolism; D69.6 Thrombocytopenia, unspecified; Z79.01 Long term (current) use of anticoagulants; G47.33 Obstructive sleep apnea (adult) (pediatric); K59.00 Constipation, unspecified; R40.2410 Glasgow coma scale score 13-15, unspecified time

== ENCOUNTER 2017-03-12 12:11 | Emergency (ER) | payer BC ==
[~2017-03-12] VITALS: Ht 144.8 cm; Wt 62.0 kg
[~2017-03-12 12:11] MED LIST changes: -ABL10 PO; -ARIP1TAB8 PO; +CLC100 PO; -CLON0.5T3 PO; -FERR1TAB62 PO; +HYDR2TAB3 PO; +LVNIS60 SQ; -MELA3TAB PO; +MRLP17X PO
[2017-03-12 12:16] VITALS: TEMP 36.7; Ht 144.8 cm; Wt 62.0 kg
[2017-03-12] MEDS ORDERED: SULF800T23 PO (13:27)
--- NOTE | 2017-03-12 13:33 | EMERGENCY ROOM VISIT NOTE ---
ED Visit Note First contact with patient: 13:05 CHIEF COMPLAINT: Right index finger wound after bite by a squirrel HISTORY OF PRESENT ILLNESS: This 41-year-old female patient presents to the emergency department approximately 4 hours after getting bitten by a squirrel. 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 She does admit to getting bitten by a duck last week, but the bite did not break the skin. There is little concern for rabies exposure, however patient wanted to be evaluated and have the wound cleaned. She did not have anything to use at home or on the bus for cleansing of the wound. Patient states she was on her way to her mental health appointment, and was advised to seek care in the emergency department regarding possible rabies vaccinations. She states she contacted her family doctor as well as [facility] [place] [facility] and was advised to seek care in the emergency department. Patient states the wound bled for approximately 30 seconds, but when she changed bandage , the wound was no longer bleeding. Patient is currently taking warfarin. She is up-to-date on tetanus vaccination. REVIEW OF SYSTEMS: A 6 system review of systems was completed with positives and pertinent negatives listed in the HPI. ALLERGIES: Chicken meat, hydrocodone, azithromycin, penicillin, mold MEDICATIONS: Warfarin, Prozac, melatonin PMH: Factor V Leiden, myotonic muscular dystrophy, history of pulmonary embolism , depression, anxiety. SOCIAL HISTORY: Patient lives locally. She denies alcohol, tobacco, drug use. PHYSICAL EXAM: Vital Signs: Reviewed Nurse's notes, vital signs stable. GENERAL : 41-year-old female, in no acute distress, well-developed, well-nourished. HEAD: Atraumatic, without temporal or scalp tenderness. EYES: PERRLA, EOMI, no discharge or injection. SKIN: Approximately 2 mm long superficial scratch noted on posterior aspect of right second digit. No active bleeding at this time. Capillary refill less than 2 seconds. NEUROLOGICAL: Alert and oriented to person place and time. Normal sensation to light and sharp touch. MUSCULOSKELETAL: Motor functions grossly intact of the lateral upper extremities. Full range of motion. There is mild tenderness on palpation of the right index finger. EMERGENCY DEPARTMENT COURSE: I examined the patient. The wound was cleansed with sodium chloride solution. Bacitracin and Band-Aid applied to the wound. Discussion with patient regarding vaccinating versus not vaccinating against rabies, and educated her on CDC recommendation at this time based on no evidence of rabies transmission and small animal such as squirrels. Patient declines rabies vaccination at this time. The patient was discharged home in stable condition. DIAGNOSIS: Bite by squirrel, superficial abrasion on right second digit DIFFERENTIAL DIAGNOSIS: Cellulitis, laceration, rabies DISCHARGE INSTRUCTIONS: Trimethoprim-Sulfamethoxazole(Bactrim DS): Take one pill twice daily for 5 days for infection prophylaxis due to squirrel bite on finger. All antibiotics can cause diarrhea. If this occurs and you feel worse or it does not resolve in 1-2 days follow up with your doctor or return to the Emergency Department as this could be signs of serious underlying problems. Any medication can cause an allergic reaction, stop the pills immediately and return to the ER for rash, hives, breathing difficulties, or swelling. Keep wound clean and dry. He may wash the wound with soap and water. Keep wound covered, during times when he could get dirty. You may use a Band- Aid with a small amount of bacitracin. Strongly advised against feeding wild animals, such as squirrels from your hands. We discussed the low incidence of rabies in small wild animals such as squirrels. If you're able to catch the squirrel, it would be advised to take squirrel to the lab for further testing. Return to the emergency department, or follow with a family physician, if you experience signs of infection including increased redness, discharge, fever, body aches, chills, nausea or vomiting. Return to the emergency department if you decide U would like to receive rabies vaccination. Problem List Medical Problems: (1) ANTICOAGULANTS,LT,CURRENT USE Status: Chronic (2) Bulimia nervosa Status: Chronic (3) Chronic gastritis Status: Chronic (4) Depression Status: Chronic (5) Gastroesophageal reflux disease Status: Chronic (6) Heterozygous Factor V Leiden mutation Status: Chronic (7) Hiatal hernia with gastroesophageal reflux disease Status: Chronic (8) History of PE with infarction Status: Chronic (9) Maty-Dale syndrome Status: Chronic (10) Muscular dystrophy Status: Chronic (11) Pulmonary embolism Status: Resolved (12) Tonsillectomy and adenoidectomy Status: Resolved Current/Historical Medications Scheduled Acetaminophen Tab (Tylenol), 650 MG PO UD Docusate Sodium (Docusate Sodium), 100 MG PO BID Enoxaparin (Enoxaparin Sodium), 60 MG SQ Q12 Fluoxetine (Prozac), 40 MG PO QAM Melatonin (Melatonin Maximum Strengt), 1 TAB PO HS Sulfa/Trimethoprim (Bactrim Ds 800MG/160MG), 1 TAB PO BID Warfarin Sod (Jantoven), 12 MG PO 3XWK Warfarin Sod (Jantoven), 8 MG PO 4XWK Scheduled PRN Hydromorphone HCl (Hydromorphone HCl), 2 MG PO Q6 PRN for Pain Polyethylene (Miralax), 17 GM PO DAILY PRN for Constipation Allergies Coded Allergies: Azithromycin (Verified Allergy, Intermediate, vomiting, 01/15/17) Hydrocodone (Verified Allergy, Mild, RASH, 01/12/17) Molds and Smuts (Verified Allergy, Mild, 01/12/17) Penicillins (Verified Allergy, Mild, RASH, 01/12/17) Chicken Allergy (Verified Allergy, Unknown, Mild allergy to chicken products, 01/12/17) Chicken Meat (Verified Allergy, Unknown, Mild allergy to chicken products , 01/12/17) Vital Signs Date Time Temp Pulse Resp B/P (MAP) Pulse Ox O2 Delivery O2 Flow Rate FiO2 03/12/17 12:16 36.7 67 18 122/77 93 Room Air Departure Information Impression Primary Impression: Wound due to squirrel bite Dispostion Home / Self-Care Condition GOOD Prescriptions Sulfa/Trimethoprim (Bactrim Ds 800MG/160MG) Tab 1 TAB PO BID for 5 Days, #10 TAB Prov: Patricia Rizo PA-C 03/12/17 Referrals No Doctor, Assigned (PCP) Patient Instructions My [facility] Additional Instructions Trimethoprim-Sulfamethoxazole(Bactrim DS): Take one pill twice daily for 5 days for infection prophylaxis due to squirrel bite on finger. All antibiotics can cause diarrhea. If this occurs and you feel worse or it does not resolve in 1- 2 days follow up with your doctor or return to the Emergency Department as this could be signs of serious underlying problems. Any medication can cause an allergic reaction, stop the pills immediately and return to the ER for rash, hives, breathing difficulties, or swelling. Keep wound clean and dry. He may wash the wound with soap and water. Keep wound covered, during times when he could get dirty. You may use a Band- Aid with a small amount of bacitracin. Strongly advised against feeding wild animals, such as squirrels from your hands. We discussed the low incidence of rabies in small wild animals such as squirrels. If you're able to catch the squirrel, it would be advised to take squirrel to the lab for further testing. Return to the emergency department, or follow with a family physician, if you experience signs of infection including increased redness, discharge, fever, body aches, chills, nausea or vomiting. Return to the emergency department if you decide U would like to receive rabies vaccination.
[2017-03-12 13:36] VITALS: BP 119/86; PULSE 68; O2SAT 98
[2017-07-09] MEDS ORDERED: WARF4TAB8 PO ×2 (13:11)
== END 2017-03-12 13:52 | disposition home or self-care (01) ==
LOC: C.EDB 12:13 → C.EDD 13:52
DX: S61.250A Open bite of right index finger without damage to nail, initial encounter (principal); W53.21XA Bitten by squirrel, initial encounter; D68.51 Activated protein C resistance; F32.9 Major depressive disorder, single episode, unspecified; F41.9 Anxiety disorder, unspecified; K21.9 Gastro-esophageal reflux disease without esophagitis; G71.11 Myotonic muscular dystrophy; Z86.711 Personal history of pulmonary embolism; Z79.01 Long term (current) use of anticoagulants; Z79.899 Other long term (current) drug therapy; Z88.0 Allergy status to penicillin; Z88.1 Allergy status to other antibiotic agents; Z88.8 Allergy status to other drugs, medicaments and biological substances; Z91.018 Allergy to other foods; Z91.09 Other allergy status, other than to drugs and biological substances

== ENCOUNTER 2017-07-09 15:24 | Emergency (ER) | payer BC ==
[~2017-07-09] VITALS: Ht 144.8 cm; Wt 66.0 kg
[~2017-07-09 15:24] MED LIST changes: -HYDR2TAB3 PO; -LVNIS60 SQ; -MRLP17X PO; +WARF4TAB8 PO
[2017-07-09 15:32] VITALS: TEMP 36.7; Ht 144.8 cm; Wt 66.0 kg
--- NOTE | 2017-07-09 15:37 | EMERGENCY ROOM VISIT NOTE ---
History First contact with patient: 15:36 Chief Complaint: COUGH Stated Complaint: SOB/COUGH Nursing Triage Summary: Pt has been having cold symptoms for 2 weeks. Pt was seen at [facility] and [facility] and put on Levaquin, Prednisone, and Tessalon Pearls. Pt c/o dry nonproductive cough and chills. Denies fever. Pt given albuterol treatment in ambulance History of Present Illness The patient is a 41 year old female with a history of PE currently on coumadin who presents to the Emergency Room with complaints of sudden onset shortness of breath and chest pain approx 3 hours [employer]. The patient was originally diagnosed with a URi 6 days prior and was started on Levaquin and Tessalon Perles. Two days later the patient had ongoing pain with coughing and went to [facility] walk in and was given prednisone for potential pleurisy. The patient had improvement in symptoms since however. Today while riding the bus the patient had sudden onset of substernal chest pain as well as SOB. She went straight to [facility] walk in and an EKG was done. Considering her history of PE and sudden onset of pain they recommended further evaluation in the ED and patient was sent via EMS. Patient has no SOB however ongoing chest pain which is substernal and radiates to the left chest. It is a 5/10 currently and an "ache". No specific aggravating or alleviating factors. Denies any nausea, presyncope or abdominal pain. Review of Systems A 10 point review of systems was completed and was negative aside from above Past Medical/Surgical History Medical Problems: (1) Abdominal mass (2) Abdominal pain (3) Acute postoperative respiratory insufficiency (4) ANTICOAGULANTS,LT,CURRENT USE (5) Bulimia nervosa (6) Chronic gastritis (7) Depression (8) Gastroesophageal reflux disease (9) Heterozygous Factor V Leiden mutation (10) Hiatal hernia with gastroesophageal reflux disease (11) History of PE with infarction (12) Maty-Dale syndrome (13) Muscular dystrophy (14) Ovarian cyst (15) Pulmonary embolism (16) Tonsillectomy and adenoidectomy Family History FH: cancer Hypertension Social History Smoking Status: Never Smoker Alcohol Use: occasionally Marital Status: Housing Status: lives with family Occupation Status: employed, [employer] student Current/Historical Medications Scheduled Fluoxetine HCl (Fluoxetine HCl), 20 MG PO QAM Melatonin (Melatonin Maximum Strengt), 5 MG PO HS Prednisone (Prednisone), 10 MG PO UD Warfarin Sod (Jantoven), 12 MG PO 5XWK Warfarin Sod (Jantoven), 8 MG PO 2XWK Scheduled PRN Acetaminophen (Acetaminophen), 1,000 MG PO Q6H PRN for Pain Benzonatate (Benzonatate), 100-200 MG PO TID PRN for Cough Ondansetron (Ondansetron HCl), 4 MG PO Q8 PRN for Nausea Allergies Azithromycin, Chicken, Hydrocodone, PCN Physical Exam Vital Signs Date Time Temp Pulse Resp B/P (MAP) Pulse Ox O2 Delivery O2 Flow Rate FiO2 07/09/17 16:28 79 111/67 100 Room Air 07/09/17 15:43 82 07/09/17 15:33 100 Room Air 07/09/17 15:32 36.7 76 18 123/67 100 Room Air Physical Exam General: ambulatory, not in acute distress Skin: no rashes noted, no suspicious lesions, no areas of inflammations/ lacerations/ erythema noted CVS: S1/ S2 noted, RRR, no rubs/ murmurs noted, no cyanosis, reproducible chest pain with palpation RVS: Clear throughout bilaterally, not in acute respiratory distress, no wheezing/ rales/ crackles noted ENT: no erythema/ injection/ ulcerations noted in the pharynx, no lymphadenopathy Neck:inspection WNL, full ROM of neck ABD: BSx4, no pain/ tenderness on palpation, no organomegaly, negative murphys, psoas, Rovsing, CVA tenderness MSK: inspection of all limbs WNL, motor and sensation intact in all limbs, no swelling/ pain on palpation of joints NVS: PERRL, EOM, alert and oriented x 3 Lymph: No lymphadenopathy palpable Medical Decision & Procedures ER Provider Diagnostic Interpretation: [~ rep ct add3]] CHEST ONE VIEW PORTABLE HISTORY: Short of breath. Atypical chest pain. COMPARISON: None. FINDINGS: The lungs are clear. Cardiac silhouette is normal in size. No pleural effusions. No pneumothorax. IMPRESSION: No acute process. Laboratory Results 07/09/17 15:55 Red Blood Count 4.48, Mean Corpuscular Volume 89.3, Mean Corpuscular Hemoglobin 28.1, Mean Corpuscular Hemoglobin Concent 31.5, Mean Platelet Volume 11.7, Neutrophils (%) (Auto) 51.7, Lymphocytes (%) (Auto) 37.2, Monocytes (%) (Auto) 4.7, Eosinophils (%) (Auto) 5.8, Basophils (%) (Auto) 0.2, Neutrophils # (Auto) 2.77, Lymphocytes # (Auto) 1.99, Monocytes # (Auto) 0.25, Eosinophils # (Auto) 0.31, Basophils # (Auto) 0.01 07/09/17 15:55 Test 07/09/17 15:45 07/09/17 15:55 07/09/17 16:25 Creatine Kinase MB Ratio (0-3.0) White Blood Count 5.35 K/uL (4.8-10.8) Red Blood Count 4.48 M/uL (4.2-5.4) Hemoglobin 12.6 g/dL (12.0-16.0) Hematocrit 40.0 % (37-47) Mean Corpuscular Volume 89.3 fL (80-100) Mean Corpuscular Hemoglobin 28.1 pg (25-34) Mean Corpuscular Hemoglobin Concent 31.5 g/dl (32-36) Platelet Count 141 K/uL (130-400) Mean Platelet Volume 11.7 fL (7.4-10.4) Neutrophils (%) (Auto) 51.7 % Lymphocytes (%) (Auto) 37.2 % Monocytes (%) (Auto) 4.7 % Eosinophils (%) (Auto) 5.8 % Basophils (%) (Auto) 0.2 % Neutrophils # (Auto) 2.77 K/uL (1.4-6.5) Lymphocytes # (Auto) 1.99 K/uL (1.2-3.4) Monocytes # (Auto) 0.25 K/uL (0.11-0.59) Eosinophils # (Auto) 0.31 K/uL (0-0.5) Basophils # (Auto) 0.01 K/uL (0-0.2) RDW Standard Deviation 55.2 fL (36.4-46.3) RDW Coefficient of Variation 16.8 % (11.5-14.5) Immature Granulocyte % (Auto) 0.4 % Immature Granulocyte # (Auto) 0.02 K/uL (0.00-0.02) Prothrombin Time 10.5 SECONDS (9.0-12.0) Prothromb Time International Ratio 1.0 (0.9-1.1) Activated Partial Thromboplast Time 22.4 SECONDS (21.0-31.0) Partial Thromboplastin Ratio 0.9 D-Dimer 410 ug/L FEU (0-500) Anion Gap 10.0 mmol/L (3-11) Est Creatinine Clear Calc Drug Dose 76.8 ml/min Estimated GFR () 112.7 Estimated GFR (Non- 97.3 BUN/Creatinine Ratio 10.3 (10-20) Calcium Level 10.0 mg/dl (8.5-10.1) Total Bilirubin 0.3 mg/dl (0.2-1) Aspartate Amino Transf (AST/SGOT) 19 U/L (15-37) Alanine Aminotransferase (ALT/SGPT) 30 U/L (12-78) Alkaline Phosphatase 121 U/L (45-117) Creatine Kinase MB 1.5 ng/ml (0.5-3.6) Troponin I < 0.015 ng/ml (0-0.045) Total Protein 7.5 gm/dl (6.4-8.2) Albumin 3.6 gm/dl (3.4-5.0) Globulin 3.9 gm/dl (2.5-4.0) Albumin/Globulin Ratio 0.9 (0.9-2) Lipase 111 U/L (73-393) Urine Color YELLOW Urine Appearance CLEAR (CLEAR) Urine pH 7.5 (4.5-7.5) Urine Specific [place] 1.010 (1.000-1.030) Urine Protein NEG (NEG) Urine Glucose (UA) NEG (NEG) Urine Ketones NEG (NEG) Urine Occult Blood NEG (NEG) Urine Nitrite NEG (NEG) Urine Bilirubin NEG (NEG) Urine Urobilinogen NEG (NEG) Urine Leukocyte Esterase TRACE (NEG) Urine WBC (Auto) /hpf (0-5) Urine RBC (Auto) /hpf (0-4) Urine Hyaline Casts (Auto) /lpf (0-5) Urine Epithelial Cells (Auto) /lpf (0-5) Urine Bacteria (Auto) (NEG) Urine RBC 0-4 /hpf (0-4) Urine WBC 1-5 /hpf (0-5) Urine Epithelial Cells >30 /lpf (0-5) Urine Bacteria NEG (NEG) ECG Indication: chest pain Rate (beats per minute): 53 Rhythm: sinus bradycardia Findings: no acute ischemic change, no ectopy Change: no significant change ED Course 1545: Patient was assessed and evaluated by resident 1710: Toradol 30 mg IV x 1. Discussed discharge with patient and patient was agreeable Medical Decision Differential diagnosis: Etiologies such as cardiac ischemia, aortic dissection, pulmonary embolism, pneumonia, pneumothorax, musculoskeletal, infections, pericarditis, myocarditis , esophageal rupture, gastrointestinal, as well as others were entertained. This is a 41 yo f that is here for assessment of acute onset chest pain. CBC did not reveal anemia or leukocytosis. CMP was unremarkable and no acute process. Troponin was negative and with reproducible chest pain and minimal risk factors this is reassuring that this is more likely MSK in nature. DDimer was also negative which is reassuring in light of a subtherapeutic INR and history of PE. We discussed close follow up with PCP in particular to discuss augmentation of warfarin dose. Patient was agreeable and discharge instructions received. Blood Pressure Screening Patient's blood pressure: Normal blood pressure Impression Primary Impression: Costochondral chest pain Departure Information Dispostion Home / Self-Care Condition GOOD Referrals Rell Michelle M.D. (PCP) [facility]
[2017-07-09] MEDS ORDERED: ACET500T57 PO (15:59)
[2017-07-09] MEDS ORDERED: ONDA4TAB9 PO (15:59)
[2017-07-09] MEDS ORDERED: BENZ100C7 PO (15:59)
[2017-07-09] MEDS ORDERED: FLUO20CA36 PO (15:59)
[2017-07-09] MEDS ORDERED: PRED10TA PO (15:59)
[2017-07-09 16:20] LABS: BASO % 0.2 %; BASO ABS # 0.01 K/uL (0-0.2); COMPLETE YES; EOS % 5.8 %; IG% 0.4 %; LYMPH % 37.2 %; LYMPH ABS # 1.99 K/uL (1.2-3.4); MEAN CELL VOLUME 89.3 fL (80-100); MEAN CORPUSCULAR HEMOGLOBIN 28.1 pg (25-34); MEAN CORPUSCULAR HGB CONC 31.5 g/dl (32-36); MEAN PLATELET VOLUME 11.7 fL (7.4-10.4); MONO % 4.7 %; NEUT % 51.7 %; PLATELET COUNT 141 K/uL (130-400); RED BLOOD COUNT 4.48 M/uL (4.2-5.4); WHITE BLOOD COUNT 5.35 K/uL (4.8-10.8)
--- NOTE | 2017-07-09 16:21 | DIAGNOSTIC IMAGING REPORT ---
CHEST ONE VIEW PORTABLE HISTORY: Short of breath. Atypical chest pain. COMPARISON: None. FINDINGS: The lungs are clear. Cardiac silhouette is normal in size. No pleural effusions. No pneumothorax. IMPRESSION: No acute process. Electronically signed by: James Higuera M.D. 07/09/2017 4:19 PM Dictated Date/Time: 07/09/2017 4:18 PM
[2017-07-09] MEDS ORDERED: MELATAB2 PO (16:27)
[2017-07-09 16:36] LABS: ALT/SGPT 30 U/L (12-78); AST/SGOT 19 U/L (15-37); BLOOD UREA NITROGEN 8 mg/dl (7-18); BUN/CREATININE RATIO 10.3 (10-20); CARBON DIOXIDE 22 mmol/L (21-32); CHLORIDE 113 mmol/L (98-107); CREATININE 0.77 mg/dl (0.60-1.20); GLUCOSE 94 mg/dl (70-99); POTASSIUM 3.6 mmol/L (3.5-5.1); SODIUM 145 mmol/L (136-145)
[2017-07-09 16:36] LABS: URINE APPEARANCE CLEAR (CLEAR); URINE BILIRUBIN NEG (NEG); URINE COLOR YELLOW; URINE NITRITE NEG (NEG); URINE PH 7.5 (4.5-7.5); UROBILINOGEN NEG (NEG); ZZUR CULT IF INDIC CLEAN CATCH NO
[2017-07-09 16:39] LABS: MANUAL MICROSCOPIC REQUIRED? YES; REVIEW REQ? NO
[2017-07-09 16:41] LABS: ALB/GLOB RATIO 0.9 (0.9-2); ALKALINE PHOSPHATASE 121 U/L (45-117); PARTIAL THROMBOPLASTIN RATIO 0.9; PROTHROMBIN TIME (PATIENT) 10.5 SECONDS (9.0-12.0)
[2017-07-09 17:02] LABS: URINE BACTERIA NEG (NEG); URINE RBC 0-4 /hpf (0-4)
[2017-07-09] MEDS ORDERED: KETOROLAC TROMETHAMINE 30 MG/ML VIAL IV STA (17:12)
[2017-07-09 17:45] VITALS: BP 128/82; PULSE 63; O2SAT 100
--- NOTE | 2017-07-09 19:05 | EMERGENCY ROOM VISIT NOTE ---
History Report prepared by Donny: Ford Mccloud Under the Supervision of: Dr. Abdoulaye Catherine D.O. First contact with patient: 15:36 Chief Complaint: COUGH Stated Complaint: SOB/COUGH Nursing Triage Summary: Pt has been having cold symptoms for 2 weeks. Pt was seen at [facility] and [facility] and put on Levaquin, Prednisone, and Tessalon Pearls. Pt c/o dry nonproductive cough and chills. Denies fever. Pt given albuterol treatment in ambulance History of Present Illness The patient is a 41 year old female who presents to the Emergency Room with complaints of a cough that has been present for 2 weeks. This weekend, she went to [facility] and was diagnosed with a URI. She was discharged with Levaquin, Prednisone, and Tessalon Pearls. Today, she began having shortness of breath with left sided chest pain. She went back to [facility] and received an ECG. She was referred here for additional workup. She denies any other abnormal symptoms. Source of History: patient Onset: 2 weeks ago Position: other (Respiratory System) Symptom Intensity: mild Quality: other (Cough) Timing: constant Associated Symptoms: + chest pain, + SOB Note: She denies any other symptoms. Review of Systems See HPI for pertinent positives & negatives. A total of 10 systems reviewed and were otherwise negative. 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 (13) Muscular dystrophy (14) Ovarian cyst (15) Pulmonary embolism (16) Tonsillectomy and adenoidectomy Family History FH: cancer Hypertension Social History Smoking Status: Never Smoker Alcohol Use: occasionally Marital Status: Housing Status: lives with family Occupation Status: employed, [employer] student Current/Historical Medications Scheduled Fluoxetine HCl (Fluoxetine HCl), 20 MG PO QAM Melatonin (Melatonin Maximum Strengt), 5 MG PO HS Prednisone (Prednisone), 10 MG PO UD Warfarin Sod (Jantoven), 12 MG PO 5XWK Warfarin Sod (Jantoven), 8 MG PO 2XWK Scheduled PRN Acetaminophen (Acetaminophen), 1,000 MG PO Q6H PRN for Pain Benzonatate (Benzonatate), 100-200 MG PO TID PRN for Cough Ondansetron (Ondansetron HCl), 4 MG PO Q8 PRN for Nausea Allergies Coded Allergies: Azithromycin (Verified Allergy, Intermediate, vomiting, 03/12/17) Hydrocodone (Verified Allergy, Mild, RASH, 03/12/17) Molds and Smuts (Verified Allergy, Mild, 03/12/17) Penicillins (Verified Allergy, Mild, RASH, 03/12/17) Chicken Allergy (Verified Allergy, Unknown, Mild allergy to chicken products, 03/12/17) Chicken Meat (Verified Allergy, Unknown, Mild allergy to chicken products , 03/12/17) Physical Exam Vital Signs Date Time Temp Pulse Resp B/P (MAP) Pulse Ox O2 Delivery O2 Flow Rate FiO2 07/09/17 17:45 63 128/82 100 07/09/17 17:21 68 143/75 98 Room Air 07/09/17 16:28 79 111/67 100 Room Air 07/09/17 15:43 82 07/09/17 15:33 100 Room Air 07/09/17 15:32 36.7 76 18 123/67 100 Room Air Physical Exam CONSTITUTIONAL/VITAL SIGNS: Reviewed / noted above. GENERAL: Non-toxic in appearance. INTEGUMENTARY: Warm, dry, and [place]. HEAD: Normocephalic. EYES: without scleral icterus or trauma. ENT/OROPHARYNX: clear and moist. LYMPHADENOPATHY/NECK: Is supple without lymphadenopathy or meningismus. RESPIRATORY: Lungs clear and equal. CARDIOVASCULAR: Regular rate and rhythm. GI/ABDOMEN: Soft and nontender. No organomegaly or pulsatile mass. No rebound or guarding. Normal bowel sounds. EXTREMITIES: Warm and well perfused. BACK: No CVA tenderness. NEUROLOGICAL: Intact without focal deficits. PSYCHIATRIC: normal affect. MUSCULOSKELETAL: Normally developed with good muscle tone. Medical Decision & Procedures ER Provider Diagnostic Interpretation: Radiology results as stated below per my review and radiologist interpretation: CHEST ONE VIEW PORTABLE HISTORY: Short of breath. Atypical chest pain. COMPARISON: None. FINDINGS: The lungs are clear. Cardiac silhouette is normal in size. No pleural effusions. No pneumothorax. IMPRESSION: No acute process. Electronically signed by: James Higuera M.D. 07/09/2017 4:19 PM Dictated Date/Time: 07/09/2017 4:18 PM Laboratory Results 07/09/17 15:55 Red Blood Count 4.48, Mean Corpuscular Volume 89.3, Mean Corpuscular Hemoglobin 28.1, Mean Corpuscular Hemoglobin Concent 31.5, Mean Platelet Volume 11.7, Neutrophils (%) (Auto) 51.7, Lymphocytes (%) (Auto) 37.2, Monocytes (%) (Auto) 4.7, Eosinophils (%) (Auto) 5.8, Basophils (%) (Auto) 0.2, Neutrophils # (Auto) 2.77, Lymphocytes # (Auto) 1.99, Monocytes # (Auto) 0.25, Eosinophils # (Auto) 0.31, Basophils # (Auto) 0.01 07/09/17 15:55 Test 07/09/17 15:45 07/09/17 15:55 07/09/17 16:25 Creatine Kinase MB Ratio (0-3.0) White Blood Count 5.35 K/uL (4.8-10.8) Red Blood Count 4.48 M/uL (4.2-5.4) Hemoglobin 12.6 g/dL (12.0-16.0) Hematocrit 40.0 % (37-47) Mean Corpuscular Volume 89.3 fL (80-100) Mean Corpuscular Hemoglobin 28.1 pg (25-34) Mean Corpuscular Hemoglobin Concent 31.5 g/dl (32-36) Platelet Count 141 K/uL (130-400) Mean Platelet Volume 11.7 fL (7.4-10.4) Neutrophils (%) (Auto) 51.7 % Lymphocytes (%) (Auto) 37.2 % Monocytes (%) (Auto) 4.7 % Eosinophils (%) (Auto) 5.8 % Basophils (%) (Auto) 0.2 % Neutrophils # (Auto) 2.77 K/uL (1.4-6.5) Lymphocytes # (Auto) 1.99 K/uL (1.2-3.4) Monocytes # (Auto) 0.25 K/uL (0.11-0.59) Eosinophils # (Auto) 0.31 K/uL (0-0.5) Basophils # (Auto) 0.01 K/uL (0-0.2) RDW Standard Deviation 55.2 fL (36.4-46.3) RDW Coefficient of Variation 16.8 % (11.5-14.5) Immature Granulocyte % (Auto) 0.4 % Immature Granulocyte # (Auto) 0.02 K/uL (0.00-0.02) Prothrombin Time 10.5 SECONDS (9.0-12.0) Prothromb Time International Ratio 1.0 (0.9-1.1) Activated Partial Thromboplast Time 22.4 SECONDS (21.0-31.0) Partial Thromboplastin Ratio 0.9 D-Dimer 410 ug/L FEU (0-500) Anion Gap 10.0 mmol/L (3-11) Est Creatinine Clear Calc Drug Dose 76.8 ml/min Estimated GFR () 112.7 Estimated GFR (Non- 97.3 BUN/Creatinine Ratio 10.3 (10-20) Calcium Level 10.0 mg/dl (8.5-10.1) Total Bilirubin 0.3 mg/dl (0.2-1) Aspartate Amino Transf (AST/SGOT) 19 U/L (15-37) Alanine Aminotransferase (ALT/SGPT) 30 U/L (12-78) Alkaline Phosphatase 121 U/L (45-117) Creatine Kinase MB 1.5 ng/ml (0.5-3.6) Troponin I < 0.015 ng/ml (0-0.045) Total Protein 7.5 gm/dl (6.4-8.2) Albumin 3.6 gm/dl (3.4-5.0) Globulin 3.9 gm/dl (2.5-4.0) Albumin/Globulin Ratio 0.9 (0.9-2) Lipase 111 U/L (73-393) Urine Color YELLOW Urine Appearance CLEAR (CLEAR) Urine pH 7.5 (4.5-7.5) Urine Specific [place] 1.010 (1.000-1.030) Urine Protein NEG (NEG) Urine Glucose (UA) NEG (NEG) Urine Ketones NEG (NEG) Urine Occult Blood NEG (NEG) Urine Nitrite NEG (NEG) Urine Bilirubin NEG (NEG) Urine Urobilinogen NEG (NEG) Urine Leukocyte Esterase TRACE (NEG) Urine WBC (Auto) /hpf (0-5) Urine RBC (Auto) /hpf (0-4) Urine Hyaline Casts (Auto) /lpf (0-5) Urine Epithelial Cells (Auto) /lpf (0-5) Urine Bacteria (Auto) (NEG) Urine RBC 0-4 /hpf (0-4) Urine WBC 1-5 /hpf (0-5) Urine Epithelial Cells >30 /lpf (0-5) Urine Bacteria NEG (NEG) Laboratory results as stated above per my review. Medications Administered Medications (Trade) Dose Ordered Sig/Yas Route Start Time Stop Time Status Last Admin Dose Admin Ketorolac Tromethamine (Toradol Inj) 30 mg NOW STAT IV 07/09/17 17:12 07/09/17 17:14 DC 07/09/17 17:19 30 MG ECG Indication: SOB/dyspnea Rate (beats per minute): 66 Rhythm: normal sinus Findings: no acute ischemic change, no ectopy ED Course 1536: Previous medical records were reviewed. The patient was evaluated in room C6. A complete history and physical examination was performed. 1712: Ordered Toradol Inj 30 mg IV 1742: On reevaluation, the patient is resting. I discussed the results and findings with the patient. She verbalized agreement of the treatment plan. She was discharged home. Medical Decision Differentials considered include acute myocardial infarction, acute coronary syndrome, myocarditis, pericarditis, pericardial effusions /tamponade, esophageal perforation, pulmonary embolism, pneumonia, pneumothorax, cardiomyopathy, congestive heart, anemia , COPD/asthma exacerbation. This is a 41-year-old female who presents to the ED with a chief complaint of a cough. The patient is on Coumadin for history of PE. The patient reported some sudden onset of chest pain and shortness of breath and the left chest and substernal area. She was recently diagnosed with a upper respiratory infection and put on Levaquin and prednisone. The patient has no other specific complaints. No fevers. Her physical exam was unremarkable. A chest x-ray did not show acute disease. CBC is normal. D-dimer is negative. Troponin is negative. With the blood was unremarkable. CBC is normal. The patient was told results the test. She was given some IV Toradol for pain. She is felt to be stable for discharge and outpatient follow-up. Seen in conjunction with the resident. Medication Reconcilliation Current Medication List: was personally reviewed by me Blood Pressure Screening Patient's blood pressure: Normal blood pressure Blood pressure disposition: Did not require urgent referral Impression Primary Impression: Costochondral chest pain Scribe Attestation The scribe's documentation has been prepared under my direction and personally reviewed by me in its entirety. I confirm that the note above accurately reflects all work, treatment, procedures, and medical decision making performed by me. Departure Information Dispostion Home / Self-Care Forms HOME CARE DOCUMENTATION FORM, IMPORTANT VISIT INFORMATION Patient Instructions My [facility] Additional Instructions You were evaluated in the ED for acute chest pain. Fortunately no abnormalities were found during the evaluation. We recommend close follow up with your PCP in particular to augment your Warfarin therapy as you are currently subtherapeutic. If you have worsening or new pain please return to the ED
== END 2017-07-09 17:46 | disposition home or self-care (01) ==
LOC: EDBD 15:24 → C.EDC 15:25
DX: R07.9 Chest pain, unspecified (principal); F50.2 Bulimia nervosa; F32.9 Major depressive disorder, single episode, unspecified; K21.9 Gastro-esophageal reflux disease without esophagitis; D68.51 Activated protein C resistance; K22.6 Gastro-esophageal laceration-hemorrhage syndrome; Z79.01 Long term (current) use of anticoagulants; Z51.81 Encounter for therapeutic drug level monitoring

== ENCOUNTER → 2017-09-11 | Outpatient (CLI) | payer BC ==
[~2017-09-11] MED LIST changes: -ACET325T96 PO; +ACET500T57 PO; +BENZ100C7 PO; -CLC100 PO; +FLUO20CA36 PO; -FLUO40CA8 PO; +MELATAB2 PO; +ONDA4TAB9 PO; +PRED10TA PO
--- NOTE | 2017-09-11 09:08 | DIAGNOSTIC IMAGING REPORT ---
ULTRASOUND L VENOUS DOPP LOWER EXT UNILAT CLINICAL HISTORY: Left leg pain COMPARISON STUDY: No previous studies for comparison. FINDINGS: Real-time and color flow Doppler imaging were performed. Flow was seen within the femoral, popliteal and calf veins with no intraluminal thrombus demonstrated. The saphenous vein is patent. IMPRESSION: No evidence of left lower extremity DVT Electronically signed by: Raymond Mohr M.D. 09/11/2017 9:07 AM Dictated Date/Time: 09/11/2017 9:07 AM
== END | disposition home or self-care (01) ==
LOC: C.ULTR 08:29
PROVIDERS: ATTEND Physician Assistant
DX: M79.605 Pain in left leg (principal); Z86.711 Personal history of pulmonary embolism; D68.51 Activated protein C resistance; Z79.01 Long term (current) use of anticoagulants

== ENCOUNTER 2017-10-28 11:34 | Emergency (ER) | payer BC, OTHER ==
[~2017-10-28] VITALS: Ht 144.8 cm; Wt 65.9 kg
[~2017-10-28 11:34] MED LIST changes: -ACET500T57 PO; +ACET500T58 PO
[2017-10-28 11:39] VITALS: TEMP 37; Ht 144.8 cm; Wt 65.9 kg
[2017-10-28 11:48] VITALS: O2SAT 97
[2017-10-28] MEDS ORDERED: ACETAMINOPHEN SUSP 160 MG/5 ML UDC PO STA (12:14)
[2017-10-28] MEDS ORDERED: MELA1TAB48 PO (12:41)
[2017-10-28] MEDS ORDERED: WARF4TAB8 PO (12:41)
[2017-10-28] MEDS ORDERED: FLUO20CA34 PO (12:41)
--- NOTE | 2017-10-28 12:43 | EMERGENCY ROOM VISIT NOTE ---
History Report prepared by Donny: Marty Ayala Under the Supervision of: Dr. Anand Pedroza M.D. First contact with patient: 12:00 Chief Complaint: CARDIAC ASSESSMENT Stated Complaint: CHEST PAIN/SHORTNESS OF BREATH Nursing Triage Summary: chest pain, shortness of breath, worsens when eating or drinking History of Present Illness The patient is a 41 year old female who presents to the Emergency Room with complaints of constant chest pain starting last night while sitting in bed watching TV which is worse with palpation. The patient states that she had a swallow study done yesterday for her difficulty swallowing due to impaired motility. She additionally states that she vomited last night due to food stuck in her throat. The patient has a history of myotonic muscular dystrophy type 1, and she states that she does not have any known heart problems. The patient denies any nausea, diarrhea, body aches, and cough. She states that she had an ovarian cyst removed in January. She is currently on warfarin for a PE, and she has Factor V Leiden. Source of History: patient Onset: last night Position: chest Timing: constant Modifying Factors (Worsening): other (palpation) Associated Symptoms: + vomiting, No nausea Review of Systems See HPI for pertinent positives and negatives. A total of ten systems were reviewed and were otherwise negative. 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 (13) Muscular dystrophy (14) Ovarian cyst (15) Pulmonary embolism (16) Tonsillectomy and adenoidectomy Family History FH: cancer Hypertension Social History Smoking Status: Never Smoker Alcohol Use: occasionally Marital Status: Housing Status: lives with family 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 Status: employed, [employer] 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 Current/Historical Medications Scheduled Fluoxetine Hcl (Prozac), 20 MG PO DAILY Melatonin (Melatonin), 10 MG PO QPM Warfarin Sod (Jantoven), 8 MG PO DAILY Allergies Coded Allergies: Azithromycin (Verified Allergy, Intermediate, vomiting, 10/28/17) Hydrocodone (Verified Allergy, Mild, RASH, 10/28/17) Molds and Smuts (Verified Allergy, Mild, 10/28/17) Penicillins (Verified Allergy, Mild, RASH, 10/28/17) Chicken Allergy (Verified Allergy, Unknown, Mild allergy to chicken products, 10/28/17) Chicken Meat (Verified Allergy, Unknown, Mild allergy to chicken products , 10/28/17) Physical Exam Vital Signs Date Time Temp Pulse Resp B/P (MAP) Pulse Ox O2 Delivery O2 Flow Rate FiO2 10/28/17 17:24 60 18 94/75 94 10/28/17 16:11 52 10/28/17 16:05 53 20 111/80 99 Room Air 10/28/17 14:44 50 20 133/67 99 Room Air 10/28/17 13:18 67 14 124/70 97 10/28/17 12:06 51 10/28/17 11:48 97 Room Air 10/28/17 11:39 Room Air 10/28/17 11:39 37.0 51 20 126/74 97 Room Air Physical Exam GENERAL: Awake, alert, uncomfortable-appearing, in no distress HENT: Normocephalic, atraumatic. Oropharynx unremarkable. Dry mucous membranes. EYES: Normal conjunctiva. Sclera non-icteric. NECK: Supple. No nuchal rigidity. FROM. No JVD. RESPIRATORY: Clear to auscultation. CARDIAC: Regular rate, normal rhythm. Extremities warm and well perfused. Pulses equal. ABDOMEN: There is some epigastric discomfort. No peritoneal signs. Soft, non- distended. No rebound or guarding. No masses. RECTAL: Deferred. MUSCULOSKELETAL: Mild tenderness along the sternum and anterior chest wall. The back is symmetrical on inspection without obvious abnormality. There is no CVA tenderness to palpation. No joint edema. LOWER EXTREMITIES: Calves are equal size bilaterally and non-tender. No edema. No discoloration. NEURO: Normal sensorium. No sensory or motor deficits noted. SKIN: No rash or jaundice noted. Medical Decision & Procedures ER Provider Diagnostic Interpretation: Radiology results as stated below per my review and radiologist interpretation: CHEST ONE VIEW PORTABLE CLINICAL HISTORY: CHEST PAIN dyspnea COMPARISON STUDY: 07/09/2017 FINDINGS: The bones soft tissues and hemidiaphragms are normal. The cardiomediastinal silhouette is normal. The lungs are clear. The pulmonary vasculature is normal. IMPRESSION: Negative chest. The above report was generated using voice recognition software. It may contain grammatical, syntax or spelling errors. Electronically signed by: Casper Bray M.D. 10/28/2017 12:51 PM Dictated Date/Time: 10/28/2017 12:[address] ANGIOGRAPHY OF THE CHEST, PULMONARY EMBOLUS PROTOCOL CLINICAL HISTORY: Chest pain. Shortness of breath. History of PE with subtherapeutic INR. COMPARISON STUDY: Chest CT February 08, 2014 and chest radiograph performed earlier today. TECHNIQUE: Following IV administration of 73 mL of Optiray-320, helical axial images of the chest were obtained utilizing the pulmonary embolus protocol. Maximal intensity projections and sagittal and coronal reformats were viewed on an independent 3D workstation. IV contrast was administered without complication. A dose lowering technique was utilized adhering to the principles of ALARA. CT DOSE: 163.87 mGy.cm FINDINGS: No pulmonary emboli are identified. There is no evidence for thoracic aortic dissection. The size of the heart is normal. There is no pericardial effusion. No enlarged axillary, mediastinal or hilar lymph nodes are present. There is no consolidation to suggest pneumonia. There is no pneumothorax. Trace bilateral pleural effusions are noted. Central airways are patent. Bony thorax and upper abdomen are unremarkable. IMPRESSION: 1. No pulmonary emboli identified. 2. Trace bilateral pleural effusions. 3. No consolidation to suggest pneumonia. Electronically signed by: Eulogio Moya M.D. 10/28/2017 3:03 PM Dictated Date/Time: 10/28/2017 2:43 PM Laboratory Results 10/28/17 12:05 Red Blood Count 4.17, Mean Corpuscular Volume 90.2, Mean Corpuscular Hemoglobin 29.5, Mean Corpuscular Hemoglobin Concent 32.7 10/28/17 12:05 Test 10/28/17 12:05 10/28/17 12:42 White Blood Count 3.99 K/uL (4.8-10.8) Red Blood Count 4.17 M/uL (4.2-5.4) Hemoglobin 12.3 g/dL (12.0-16.0) Hematocrit 37.6 % (37-47) Mean Corpuscular Volume 90.2 fL (80-100) Mean Corpuscular Hemoglobin 29.5 pg (25-34) Mean Corpuscular Hemoglobin Concent 32.7 g/dl (32-36) Platelet Count 103 K/uL (130-400) RDW Standard Deviation 54.6 fL (36.4-46.3) RDW Coefficient of Variation 16.6 % (11.5-14.5) Neutrophils % (Manual) 65.2 % Lymphocytes % (Manual) 21.4 % Monocytes % (Manual) 4.5 % Eosinophils % (Manual) 8.9 % Neutrophils # (Manual) 2.60 K/uL (1.4-6.5) Total Absolute Neutrophils 2.60 K/uL (1.4-6.5) Lymphocytes # (Manual) 0.85 K/uL (1.2-3.4) Total Absolute Lymphocytes 0.85 K/uL (1.2-3.4) Monocytes # (Manual) 0.18 K/uL (0.11-0.59) Eosinophils # (Manual) 0.36 K/uL (0-0.5) Platelet Estimate DECREASED Large Platelets 2+ Anion Gap 4.0 mmol/L (3-11) Est Creatinine Clear Calc Drug Dose 95.3 ml/min Estimated GFR () 131.6 Estimated GFR (Non- 113.6 BUN/Creatinine Ratio 13.8 (10-20) Calcium Level 9.2 mg/dl (8.5-10.1) Magnesium Level 2.4 mg/dl (1.8-2.4) Total Bilirubin 0.4 mg/dl (0.2-1) Direct Bilirubin < 0.1 mg/dl (0-0.2) Aspartate Amino Transf (AST/SGOT) 23 U/L (15-37) Alanine Aminotransferase (ALT/SGPT) 33 U/L (12-78) Alkaline Phosphatase 122 U/L (45-117) Troponin I < 0.015 ng/ml (0-0.045) Total Protein 6.9 gm/dl (6.4-8.2) Albumin 3.2 gm/dl (3.4-5.0) Lipase 110 U/L (73-393) Prothrombin Time 15.1 SECONDS (9.0-12.0) Prothromb Time International Ratio 1.4 (0.9-1.1) Laboratory results reviewed by me Medications Administered Medications (Trade) Dose Ordered Sig/Yas Route Start Time Stop Time Status Last Admin Dose Admin Acetaminophen (Tylenol Children'S Susp) 1,000 mg NOW STAT PO 10/28/17 12:14 10/28/17 12:35 DC 10/28/17 12:33 1,000 MG Famotidine (Pepcid 20mg Iv Push) 20 mg NOW STAT IV 10/28/17 14:24 10/28/17 14:26 DC 10/28/17 14:46 20 MG Albuterol (Ventolin Hfa Inhaler) 2 puffs NOW STAT INH 10/28/17 16:19 10/28/17 16:20 DC 10/28/17 16:37 2 PUFFS ECG Indication: chest pain Rate (beats per minute): 47 Rhythm: sinus bradycardia Findings: no acute ischemic change, other (Normal axis) Change: Patient's EKG interpreted by me. ED Course 1210: The patient was evaluated in room B7. A complete history and physical exam was performed. 1616: I reevaluated the patient. Discussed results and discharge instructions: She verbalized understanding and agreement. The patient is ready for discharge. Medical Decision I reviewed the patient's past medical history, medications, and the nursing notes as described above. The patient's presentation and history were concerning for etiologies such as cardiac ischemia, aortic dissection, pulmonary embolism, pneumonia, pneumothorax , musculoskeletal, infections, pericarditis, myocarditis, esophageal perforation , gastrointestinal, as well as others were entertained. The patient is a 41 y/o woman with a pmhx of MMD1, PE on coumadin who presents to the emergency department with CP and sob after having outpatient barium swallow study yesterday where, per patient, they identified impaired esophageal motility but is waiting for further recommendations from her doctor per HPI. On arrival the patient is in NAD, AFVSS. Mild reproducible anterior CW ttp. Denies increased pain when supine. Pericarditis unlikely. EKG unremarkable. Troponin negative in the setting of constant symptoms since last night making ACS unlikely. CT-PE negative for PE given patient's INR subtherapeutic. Negative for PNA. Aorta unremarkable. WBC 3.9 possible related to viral illness given patient reports mild nasal congestion over past couple of days. Given albuterol MDI and patient felt immediate improvement in her dyspnea. Sating normally throughout ED observation. Thus, sx most likely related to viral illness/ bronchitis. Unlikely to be related to worsening of patient's underlying MMD1. Plan for pcp f/u. Findings and plan for follow-up reviewed with patient. Patient agreeable and d/c'd per discharge instructions. Medication Reconcilliation Current Medication List: was personally reviewed by me Blood Pressure Screening Patient's blood pressure: Normal blood pressure Impression Primary Impression: Substernal chest pain Additional Impression: Bronchitis Scribe Attestation The scribe's documentation has been prepared under my direction and personally reviewed by me in its entirety. I confirm that the note above accurately reflects all work, treatment, procedures, and medical decision making performed by me. Departure Information Dispostion Home / Self-Care Referrals Rell Michelle M.D. (PCP) Forms IMPORTANT VISIT INFORMATION Patient Instructions ED Bronchitis Asthmatic, ED Chest Pain Atypical Unkn Cause, ED Chest Pain Costochondritis, My [facility] Additional Instructions Please follow up with your primary care physician in the next 1-3 days for re- evaluation. You likely have a viral bronchitis. Otherwise, your exam, EKG, chest xray, CT scan of your chest, and lab results did not show signs of an emergent condition at this time. Acetaminophen for pain as needed. Use your albuterol inhaler 2 puffs every 4 hours for the next 48 hours and then as needed thereafter. Return to the emergency department for worsening symptoms as described in the accompanying instructions. Problem Qualifiers
[2017-10-28 12:51] LABS: ALBUMIN 3.2 gm/dl (3.4-5.0); ALT/SGPT 33 U/L (12-78); AST/SGOT 23 U/L (15-37); BLOOD UREA NITROGEN 9 mg/dl (7-18); CALCIUM 9.2 mg/dl (8.5-10.1); CARBON DIOXIDE 25 mmol/L (21-32); CREATININE 0.62 mg/dl (0.60-1.20); GLUCOSE 85 mg/dl (70-99); LIPASE 110 U/L (73-393); SODIUM 140 mmol/L (136-145)
--- NOTE | 2017-10-28 12:52 | DIAGNOSTIC IMAGING REPORT ---
CHEST ONE VIEW PORTABLE CLINICAL HISTORY: CHEST PAIN dyspnea COMPARISON STUDY: 07/09/2017 FINDINGS: The bones soft tissues and hemidiaphragms are normal. The cardiomediastinal silhouette is normal. The lungs are clear. The pulmonary vasculature is normal. IMPRESSION: Negative chest. The above report was generated using voice recognition software. It may contain grammatical, syntax or spelling errors. Electronically signed by: Casper Bray M.D. 10/28/2017 12:51 PM Dictated Date/Time: 10/28/2017 12:51 PM
[2017-10-28 12:57] LABS: ALKALINE PHOSPHATASE 122 U/L (45-117); TOTAL PROTEIN 6.9 gm/dl (6.4-8.2)
[2017-10-28 13:09] LABS: INR 1.4 (0.9-1.1)
[2017-10-28 13:15] LABS: HEMATOCRIT 37.6 % (37-47); HEMOGLOBIN 12.3 g/dL (12.0-16.0); MEAN CELL VOLUME 90.2 fL (80-100); MEAN CORPUSCULAR HEMOGLOBIN 29.5 pg (25-34); MEAN CORPUSCULAR HGB CONC 32.7 g/dl (32-36); PLATELET COUNT 103 K/uL (130-400); RED CELL DISTRIBUTION WIDTH CV 16.6 % (11.5-14.5); RED CELL DISTRIBUTION WIDTH SD 54.6 fL (36.4-46.3); WHITE BLOOD COUNT 3.99 K/uL (4.8-10.8)
[2017-10-28] MEDS ORDERED: FAMOTIDINE 20MG/5ML IV PUSH IV STA (14:24)
[2017-10-28] MEDS ORDERED: OPTIRAY 320 IV PRN (14:30)
--- NOTE | 2017-10-28 15:04 | DIAGNOSTIC IMAGING REPORT ---
CT ANGIOGRAPHY OF THE CHEST, PULMONARY EMBOLUS PROTOCOL CLINICAL HISTORY: Chest pain. Shortness of breath. History of PE with subtherapeutic INR. COMPARISON STUDY: Chest CT February 08, 2014 and chest radiograph performed earlier today. TECHNIQUE: Following IV administration of 73 mL of Optiray-320, helical axial images of the chest were obtained utilizing the pulmonary embolus protocol. Maximal intensity projections and sagittal and coronal reformats were viewed on an independent 3D workstation. IV contrast was administered without complication. A dose lowering technique was utilized adhering to the principles of ALARA. CT DOSE: 163.87 mGy.cm FINDINGS: No pulmonary emboli are identified. There is no evidence for thoracic aortic dissection. The size of the heart is normal. There is no pericardial effusion. No enlarged axillary, mediastinal or hilar lymph nodes are present. There is no consolidation to suggest pneumonia. There is no pneumothorax. Trace bilateral pleural effusions are noted. Central airways are patent. Bony thorax and upper abdomen are unremarkable. IMPRESSION: 1. No pulmonary emboli identified. 2. Trace bilateral pleural effusions. 3. No consolidation to suggest pneumonia. Electronically signed by: Eulogio Moya M.D. 10/28/2017 3:03 PM Dictated Date/Time: 10/28/2017 2:43 PM
[2017-10-28] MEDS ORDERED: ALBUTEROL HFA 8 GM INHALER INH STA (16:19)
[2017-10-28 17:24] VITALS: BP 94/75; PULSE 60; O2SAT 94
== END 2017-10-28 17:26 | disposition home or self-care (01) ==
LOC: C.EDB 11:34 → EDBD 11:34 → C.EDB 17:26
DX: J40 Bronchitis, not specified as acute or chronic (principal); G71.11 Myotonic muscular dystrophy; Z79.01 Long term (current) use of anticoagulants; Z86.711 Personal history of pulmonary embolism; D68.51 Activated protein C resistance; F50.2 Bulimia nervosa; F32.9 Major depressive disorder, single episode, unspecified; K21.9 Gastro-esophageal reflux disease without esophagitis; Z80.9 Family history of malignant neoplasm, unspecified; Z82.49 Family history of ischemic heart disease and other diseases of the circulatory system; Z79.899 Other long term (current) drug therapy

== ENCOUNTER → 2017-12-17 | Outpatient (CLI) | payer OTHER ==
[~2017-12-17] MED LIST changes: -ACET500T58 PO; -BENZ100C7 PO; +FLUO20CA34 PO; -FLUO20CA36 PO; +MELA1TAB48 PO; -MELATAB2 PO; -ONDA4TAB9 PO; -PRED10TA PO
--- NOTE | 2017-12-17 08:15 | DIAGNOSTIC IMAGING REPORT ---
(BARIUM SWALLOW) ESOPHAGUS CLINICAL HISTORY: Dysphagia. COMPARISON STUDY: None. FLUOROSCOPY TIME: 1.3 minutes. FINDINGS: 23 fluoroscopic images were obtained. There is mild esophageal dilatation. There is persistent mucosal irregularity of the distal esophagus. This is shown on multiple images. A 13 mm barium tablet passed into the stomach. No significant stricture was identified. There was mild esophageal dysmotility. IMPRESSION: 1. Persistent mucosal irregularity of the distal esophagus. This favors esophagitis however a mucosal lesion could appear similar. If not recently performed, upper endoscopy is recommended. 2. Mild esophageal dysmotility and mild esophageal dilatation. 3. 13 mm barium tablet passed freely into the stomach. Electronically signed by: Eulogio Moya M.D. 12/17/2017 8:13 AM Dictated Date/Time: 12/17/2017 8:04 AM
== END | disposition home or self-care (01) ==
LOC: C.RAD 07:13
PROVIDERS: ATTEND Internal Medicine Gastroenterology
DX: R13.12 Dysphagia, oropharyngeal phase (principal)

== ENCOUNTER → 2017-12-31 | Day surgery (SDC) | payer OTHER ==
[~2017-12-31] VITALS: Ht 144.8 cm; Wt 63.6 kg
[~2017-12-31] MED LIST changes: +CMD4 PO; +LIDOCAINE HCL 2% 2 ML VIAL (20MG/ML) ONE; +PROPOFOL IV EMULSION 10 MG/ML 20 ML VIAL IV ONE; +SODIUM CHLORIDE 0.9% 500ML 500 ML IV ONE; -WARF4TAB8 PO
[2017-12-31 12:33] VITALS: Ht 144.8 cm; Wt 63.6 kg
[2017-12-31 12:35] VITALS: TEMP 36.6
--- NOTE | 2017-12-31 13:02 | Endo History and Physical ---
History & Physical Date of Service: Dec 31, 2017. Chief Complaint: DYSPAGIA, ESOPHAGITIS Referring Physician: DR HERNANDEZ History of Present Illness dysphagia Past Medical History Anxiety, Other, Depression Past Surgical History Hx Cardiac Surgery: No Hx Internal Defibrillator: No Hx Pacemaker: No Hx Abdominal Surgery: Yes (LAURA, OVARIAN CYST REMOVAL) Hx of Implantable Prosthesis: No Hx Post-Op Nausea and Vomiting: No Hx Cancer Surgery: No Hx Thoracic Surgery: No Hx Orthopedic: No Hx Urinary Tract Surgery: No Family History None Social History Smoking Status: Never Smoker Hx Substance Use: No Hx Alcohol Use: Yes (RARELY) Allergies Coded Allergies: Azithromycin (Verified Allergy, Intermediate, vomiting, 12/28/17) Hydrocodone (Verified Allergy, Mild, RASH, 12/28/17) Molds and Smuts (Verified Allergy, Mild, ., 12/28/17) Penicillins (Verified Allergy, Mild, RASH, 12/28/17) Chicken Allergy (Verified Allergy, Unknown, Mild allergy to chicken products, 12/28/17) Chicken Meat (Verified Allergy, Unknown, Mild allergy to chicken products , 12/28/17) Current Medications Reported Home Medications Medications Dose Route/Sig Max Daily Dose Days Date Category Coumadin (Warfarin Sod) 4 Mg Tab 8 Mg PO QAM 12/28/17 Reported Melatonin 10 Mg Tab 10 Mg PO HS 10/28/17 Reported Prozac (Fluoxetine Hcl) 20 Mg Cap 20 Mg PO QAM 10/28/17 Reported Vital Signs Weight (Kilograms): 63.64 Height (Feet): 4 Height (Inches): 9 Date Time Temp Pulse Resp B/P (MAP) Pulse Ox O2 Delivery O2 Flow Rate FiO2 12/31/17 12:35 36.6 56 20 127/75 (92) 98 Room Air Physical Exam General Appearance: WD/WN, no apparent distress Respiratory/Chest: Auscultation: breath sounds normal Cardiovascular: Heart Auscultation: RRR Abdomen: Bowel Sounds: normal Inspection & Palpation: soft, non-distended, no tenderness, guarding & rebound Assessment and Plan egd with possible dilation/bx
--- NOTE | 2017-12-31 13:38 | Discharge Instructions ---
Endoscopy Patient Instructions Date / Procedure(s) Performed Dec 31, 2017. EGD Allergy Information Coded Allergies: Azithromycin (Verified Allergy, Intermediate, vomiting, 12/28/17) Hydrocodone (Verified Allergy, Mild, RASH, 12/28/17) Molds and Smuts (Verified Allergy, Mild, ., 12/28/17) Penicillins (Verified Allergy, Mild, RASH, 12/28/17) Chicken Allergy (Verified Allergy, Unknown, Mild allergy to chicken products, 12/28/17) Chicken Meat (Verified Allergy, Unknown, Mild allergy to chicken products , 12/28/17) Discharge Date / Findings Dec 31, 2017. esophagitis/ gastritis with erosions Medication Instructions Stopped Medication(s): ON WARFARIN-LAST DOSE 12/30/17 Restart Stopped Medication(s): Reported Home Medications Medications Dose Route/Sig Max Daily Dose Days Date Category Coumadin (Warfarin Sod) 4 Mg Tab 8 Mg PO QAM 12/28/17 Reported Melatonin 10 Mg Tab 10 Mg PO HS 10/28/17 Reported Prozac (Fluoxetine Hcl) 20 Mg Cap 20 Mg PO QAM 10/28/17 Reported begin Prilosec 40mg daily Reported Home Medications Medications Dose Route/Sig Max Daily Dose Days Date Category Coumadin (Warfarin Sod) 4 Mg Tab 8 Mg PO QAM 12/28/17 Reported Melatonin 10 Mg Tab 10 Mg PO HS 10/28/17 Reported Prozac (Fluoxetine Hcl) 20 Mg Cap 20 Mg PO QAM 10/28/17 Reported begin Prilosec 40mg daily Provider Instructions Activity Restrictions - No exercising or heavy lifting for 24 hours. - Do not drink alcohol the day of the procedure. - Do not drive a car or operate machinery until the day after the procedure. - Do not make any important decisions or sign important papers in 24 hours after the procedure. Following Day: - Return to full activity which may include returning to work/school. Diet Start your diet with liquids and light foods (jello, soup, juice, toast). Then eat your usual diet if not nauseated. Treatment For Common After Affects For mild abdominal pain, bloating, or excessive gas: - Rest - Eat lightly - Lie on right side Follow-Up Information Follow-up with DR HERNANDEZ as scheduled Anesthesia Information What You Should Know You have had a procedure that required some medicine to reduce anxiety and discomfort. This treatment is called moderate sedation. After receiving the treatment, you may be sleepy, but you will be able to breathe on your own. The effects of the treatment may last for several hours. Follow these instructions along with Activity/Diet recommendations noted above: * Do NOT do anything where dizziness or clumsiness would be dangerous. * Rest quietly at home today, then you can be up and about tomorrow. * Have a responsible person stay with you the rest of today. * You may have had an I.V. today. If so, you may take the dressing off later today. Recommendations Call your doctor if: * Trouble breathing * Continuous vomiting for more than 24 hours * Temperature above 101 degrees * Severe abdominal pain or bloating * Pain not relieved by pain medicine ordered * There is increased drainage or redness from any incision * A large amount of rectal bleeding greater than 2-3 tablespoons. (If you had a polyp/s removed or have hemorrhoids, a small amount of blood - from the rectum is to be expected.) * You have any unanswered questions or concerns. IN THE EVENT OF A SERIOUS EMERGENCY, GO TO THE NEAREST EMERGENCY ROOM Your discharge instructions were prepared by provider Joselo Najera. Patient Instructions Signature Page Sherita Davidson Patient (or Guardian) Signature/Date: I have read and understand the instructions given to me by my caregivers. Caregiver/RN/Doctor Signature/Date: The above-named patient and/or guardian has received patient instructions on this date. + Original Patient Signature Page (only) stays with chart. Please make copy for patient.
--- NOTE | 2017-12-31 13:57 | GI REPORT ---
Procedure Date: 12/31/2017 12:36 PM Procedure: Upper GI endoscopy Indications: Dysphagia, Abnormal UGI series Medicines: Propofol per Anesthesia Complications: No immediate complications. Estimated blood loss: None. Estimated Blood Loss: Estimated blood loss: none. Estimated blood loss: none. Procedure: Pre-Anesthesia Assessment: - Prior to the procedure, a History and Physical was performed, and patient medications and allergies were reviewed. The patient's tolerance of previous anesthesia was also reviewed. The risks and benefits of the procedure and the sedation options and risks were discussed with the patient. All questions were answered, and informed consent was obtained. Prior Anticoagulants: The patient has taken no previous anticoagulant or antiplatelet agents. ASA Grade Assessment: III - A patient with severe systemic disease. After reviewing the risks and benefits, the patient was deemed in satisfactory condition to undergo the procedure. After obtaining informed consent, the endoscope was passed under direct vision. Throughout the procedure, the patient's blood pressure, pulse, and oxygen saturations were monitored continuously. The scope was introduced through the mouth, and advanced to the second part of duodenum. The upper GI endoscopy was accomplished without difficulty. The patient tolerated the procedure well. Findings: The upper third of the esophagus and middle third of the esophagus were normal. LA Grade B (one or more mucosal breaks greater than 5 mm, not extending between the tops of two mucosal folds) esophagitis with no bleeding was found 35 to 38 cm from the incisors. Patchy moderate inflammation characterized by congestion (edema), erosions, erythema and linear erosions was found in the gastric fundus and in the gastric body. The examined duodenum was normal. The cardia and gastric fundus were otherwise normal on retroflexion. The Z-line was regular and was found 38 cm from the incisors. A small amount of food (residue) was found in the gastric body. Impression: - Normal upper third of esophagus and middle third of esophagus. - LA Grade B reflux esophagitis. - Gastritis. - Normal examined duodenum. - No specimens collected. Recommendation: - Discharge patient to home (ambulatory). - Resume regular diet. - Use Prilosec (omeprazole) 40 mg PO daily. - Return to GI clinic as previously scheduled. - Perform an H. pylori stool antigen (HpSA) test [Day]. MD Joselo Adame MD 12/31/2017 1:56:40 PM This report has been signed electronically. Note Initiated On: 12/31/2017 12:36 PM I attest to the content of the Intraoperative Record and orders documented therein, exceptions below
[2017-12-31 14:23] VITALS: BP 115/62; PULSE 64; O2SAT 94
--- NOTE | 2017-12-31 14:43 | Anesthesiology Progress Note ---
Anesthesia Post Op Note Date & Time Dec 31, 2017 at 14:41 Vital Signs Pain Intensity: 0 Vital Signs Past 12 Hours Date Time Temp Pulse Resp B/P (MAP) Pulse Ox O2 Delivery O2 Flow Rate FiO2 12/31/17 14:23 64 20 115/62 (79) 94 Room Air 12/31/17 14:08 59 20 114/72 (86) 92 Room Air 12/31/17 13:53 64 20 101/58 (72) 94 Nasal Cannula 1 12/31/17 13:38 85 20 138/103 (115) 88 Room Air 12/31/17 12:35 36.6 56 20 127/75 (92) 98 Room Air Notes Mental Status: alert / awake / arousable, participated in evaluation Pt Amnestic to Procedure: Yes Nausea / Vomiting: adequately controlled Pain: adequately controlled Airway Patency, RR, SpO2: stable & adequate BP & HR: stable & adequate Hydration State: stable & adequate Anesthetic Complications: no major complications apparent The patient was noted to cough up phlegm after the procedure. She did note that she had a URI last week that had resolved. Her lungs were clear in recovery. She was given an incentive spirometer. Her SpO2 was maintained above 94 on room air. The patient and her family were instructed to go to the ER if any fever, shortness of breath, or other concerning symptom develops to which they agreed.
== END | disposition home or self-care (01) ==
LOC: C.GI 12:04
PROVIDERS: ATTEND Internal Medicine Gastroenterology
DX: R13.10 Dysphagia, unspecified (principal); R93.3 Abnormal findings on diagnostic imaging of other parts of digestive tract; K21.0 Gastro-esophageal reflux disease with esophagitis; K29.70 Gastritis, unspecified, without bleeding; F32.9 Major depressive disorder, single episode, unspecified; D68.51 Activated protein C resistance; Z90.49 Acquired absence of other specified parts of digestive tract; Z79.899 Other long term (current) drug therapy; Z98.41 Cataract extraction status, right eye; Z90.89 Acquired absence of other organs; Z98.42 Cataract extraction status, left eye; Z98.890 Other specified postprocedural states; Z79.01 Long term (current) use of anticoagulants; Z88.1 Allergy status to other antibiotic agents; Z88.8 Allergy status to other drugs, medicaments and biological substances; Z88.0 Allergy status to penicillin; Z91.018 Allergy to other foods

== ENCOUNTER 2019-06-17 05:38 | Observation (INO) ==
--- NOTE | 2019-06-03 13:24 | PAT Medication Instructions ---
Medication Instructions Date of Service June 03, 2019 Home Medications fluoxetine 20 mg PO QAM melatonin 10 mg PO HS warfarin 8 mg PO 5XWK acetaminophen [Tylenol] 325 mg PO Q6H PRN amitriptyline 25 mg PO HS warfarin 4 mg PO 2XWK ASK your prescriber and surgeon warfarin 8 mg PO 5XWK warfarin 4 mg PO 2XWK Take morning of surgery With a small sip of water, OTHERWISE NOTHING TO EAT OR DRINK AFTER MIDNIGHT: fluoxetine 20 mg PO QAM acetaminophen [Tylenol] 325 mg PO Q6H PRN (okay to take up to 4 hours prior to surgery if needed) Take evening before surgery melatonin 10 mg PO HS acetaminophen [Tylenol] 325 mg PO Q6H PRN (if needed) amitriptyline 25 mg PO HS Other Notes If you have any questions please call us at [phone] or [phone] or [phone] or [phone]
--- NOTE | 2019-06-09 14:41 | Anesthesiology Consultation ---
Date of Service June 09, 2019 Patient has a long standing history of myotonic dystrophy. She is not wheelchair bound, but reports waxing and waning generalized muscle weakness. She has had many anesthetics in the past and denies history of prolonged intuba tion. She did however have ptosis surgery under MAC sedation at an outside facility and reports that she needed emergent intubation during the procedure for aspiration. She is adamantly against spinal blockade for the currently scheduled procedure. She realizes that she is at significantly higher risk for prolonged intubation, pulmonary complications, and aspiration with general anesthesia and wishes to proceed. Assessment & Plan (1) Encounter for pre-operative examination: Chart Review Chart Review: Acceptable Risk for Surgery and Patient NOT seen in Pre Admission Testing Consults Requested none Teaching & Discussion Given her myotonic dystrophy and history of aspiration, I recommended that she fast for 12 hours prior to procedure. She understands this request and the reasoning behind it. May take meds with a sip of water. History Surgery Operation Date: 06/17/19 07:00 Proposed Procedures p Hysteroscopy, - Jus Thorpe MD s Dilation and Curettage, Novasure - Jus Thorpe MD Height/Weight Height: 4 ft 9 in Weight: 65.1 kg Allergies Allergy/AdvReac Type Severity Reaction Status Date / Time hydrocodone Allergy Mild RASH, Verified 06/03/19 16:14 FACIAL/TONGUE SWELLING mold Allergy Mild . Verified 05/30/19 07:41 Penicillins Allergy Mild RASH Verified 05/30/19 07:41 chicken derived Allergy Unknown "MILD" Verified 06/03/19 16:14 azithromycin AdvReac Severe VOMITING Verified 06/03/19 16:14 mivacurium AdvReac Intermediate VOMITING Verified 06/03/19 16:14 Medications Home Medications Medication Instructions Recorded Confirmed Last Taken fluoxetine 20 mg PO QAM 10/06/18 05/30/19 10/06/18 melatonin 10 mg PO HS 10/06/18 05/30/19 10/05/18 warfarin 8 mg PO 5XWK 10/06/18 05/30/19 10/06/18 acetaminophen [Tylenol] 325 mg PO Q6H PRN 05/30/19 05/30/19 Unknown amitriptyline 25 mg PO HS 05/30/19 05/30/19 Unknown warfarin 4 mg PO 2XWK 05/30/19 05/30/19 Unknown Past Medical History Medical History Heterozygous Factor V Leiden mutation (Unknown) Pulmonary embolism (08/15/12) B/L (2010); diagnosed with Factor V Leiden- on warfarin Bulimia nervosa (07/11/13) Hiatal hernia with gastroesophageal reflux disease (07/11/13) no current issues Myotonic muscular dystrophy Anemia Anxiety Borderline personality disorder Chronic back pain Depression 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 Migraine Past Surgical History Surgical History H/O exploratory laparotomy + OVARIAN CYST REMOVAL; Exploratory lap: 01/15/17: Grade view 1, MAC#3, ETT 7.0 + TAP block at [facility] History of adenoidectomy History of blepharoplasty History of cholecystectomy History of cystoscopy History of esophagogastroduodenoscopy (EGD) History of tonsillectomy Hx of lumpectomy RIGHT Social History Smoking Status: Never smoker Do You Dip or Chew Tobacco: No Hx Alcohol Use: Yes Alcohol type: wine alcohol intake frequency: holidays/special occasions only Hx Substance Use: No substance use type: does not use Review of Systems Musculoskeletal: + muscle weakness Physical Exam Vital Signs Last Vital Signs Temp 36.9 C 06/09/19 14:14 Pulse 57 L 06/09/19 14:14 Resp 18 06/09/19 14:14 BP 98/66 L 06/09/19 14:14 Pulse Ox 98 06/09/19 14:14 Constitutional + obese ENMT Mouth: + small oral opening Thyromental Distance: > or= 3.5 Finger Breadths Mallampati Class: III Mouth / Teeth: 1. Prominent incisors. Neck normal visual inspection Respiratory normal respiratory effort Cardiovascular Rate/Rhythm: regular rate and regular rhythm Neurologic moves all extremities
[2019-06-09 16:31] LABS: Mean Corpuscular Hgb Conc 30.9 g/dL (32-36)
[2019-06-09 16:54] LABS: Hemoglobin 10.2 g/dL (12.0-16.0); Mean Corpuscular Hemoglobin 26.5 pg (25-34); Mean Corpuscular Volume 85.7 fL (80-100); RDW Coefficient of Variation 18.6 % (11.5-14.5); RDW Standard Deviation 58.7 fL (36.4-46.3); Red Blood Count 3.85 M/uL (4.2-5.4); White Blood Count 3.35 K/uL (4.8-10.8)
[2019-06-09 17:06] LABS: Platelet Count 116 K/uL (130-400)
[2019-06-09 17:09] LABS: Basophils # (auto) 0.01 K/uL (0-0.2); Basophils % (auto) 0.3 %; Eosinophils # (auto) 0.25 K/uL (0-0.5); Eosinophils % (auto) 7.5 %; Lymphocytes # (auto) 1.16 K/uL (1.2-3.4); Lymphocytes % (auto) 34.6 %; Neutrophils # (auto) 1.73 K/uL (1.4-6.5); Neutrophils % (auto) 51.6 %; Platelet Estimate Decreased (Normal)
[2019-06-17] MEDS ORDERED: SODIUM CHLORIDE 0.9% 1000ML 1,000 ML IV SCH (06:00)
[2019-06-17] MEDS ORDERED: LACTATED RINGER'S 1,000 ML IV SCH ×2 (06:00→08:38)
[2019-06-17] MEDS ORDERED: LR 15ML/HR IV SCH (06:00)
--- NOTE | 2019-06-17 06:50 | History & Physical Bridge Note ---
Date of Service June 17, 2019 History & Physical Bridge Note I have examined the patient, reviewed the History & Physical and in the interval since the performance of the History & Physical I have noted the following changes of clinical significance: no changes noted
[2019-06-17 06:52] LABS: INR 1.2 (0.9-1.1); Partial Thromboplastin Ratio 0.9; Partial Thromboplastin Time 24.5 Seconds (21.0-31.0); Prothrombin Time 11.9 Seconds (9.0-12.0)
[2019-06-17] MEDS ORDERED: fentaNYL citrate 100 MCG/2 ML VIAL ONE (06:55)
[2019-06-17] MEDS ORDERED: MIDAZOLAM HCL 1 MG/ML 2ML VIAL ONE (06:55)
[2019-06-17] MEDS ORDERED: ONDANSETRON INJ 2 MG/ML 2 ML VIAL IV PRN ×3 (07:10→08:38)
[2019-06-17] MEDS ORDERED: IBUPROFEN 600 MG TAB PO PRN (07:10)
[2019-06-17] MEDS ORDERED: METOCLOPRAMIDE HCL INJ 5 MG/ML 2 ML VIAL IV PRN (07:10)
[2019-06-17] MEDS ORDERED: ATROPINE SULFATE 0.1 MG/ML 10ML SYR IV PRN (07:43)
[2019-06-17] MEDS ORDERED: NALOXONE HCL 0.4 MG/1 ML VIAL/CARP IV PRN (07:43)
[2019-06-17] MEDS ORDERED: ePHEDrine sulfate 50 MG/ML AMP IV PRN (07:43)
[2019-06-17] MEDS ORDERED: PROMETHAZINE HCL 12.5 MG in SODIUM CHLORIDE 0.9% 50 ML IV PRN (07:43)
[2019-06-17] MEDS ORDERED: FLUMAZENIL 0.1 MG/1 ML 10 ML VIAL IV PRN (07:43)
[2019-06-17] MEDS ORDERED: fentaNYL citrate 100 MCG/2 ML VIAL IV PRN (07:43)
--- NOTE | 2019-06-17 08:19 | Post Operative Brief Note ---
Immediate Post Op Note v1 Date of Surgery June 17, 2019 Pre & Post Diagnosis Operation Date: 06/17/19 07:00 Pre-Op Diagnosis: Menorrhagia Post-Op Diagnosis: Menorrhagia Procedure Operation Date: 06/17/19 07:00 Actual Procedures p Hysteroscopy(Not Applicable) - Jus Thorpe MD s Dilation and Curettage, Novasure(Not Applicable) - Jus Thorpe MD Myosure polypectomy Surgeon Jus Thorpe MD Naval Designer Carol Ann SNELL Estimated Blood Loss 5 Findings Consistent with Post-Op Diagnosis
--- NOTE | 2019-06-17 08:21 | Post Operative Brief Note ---
Immediate Post Op Note v1 Date of Surgery June 17, 2019 Pre & Post Diagnosis Operation Date: 06/17/19 07:00 Pre-Op Diagnosis: Menorrhagia Post-Op Diagnosis: Menorrhagia endometrial polyp Procedure Operation Date: 06/17/19 07:00 Actual Procedures p Hysteroscopy(Not Applicable) - Jus Thorpe MD s Dilation and Curettage, Novasure(Not Applicable) - Jus Thorpe MD Myosure polypectomy Surgeon Jus Thorpe MD Artist Model Carol Ann SNELL Estimated Blood Loss 5 Findings Consistent with Post-Op Diagnosis
[2019-06-17] MEDS ORDERED: ONDANSETRON INJ 2 MG/ML 2 ML VIAL ONE (08:46)
[2019-06-17] MEDS ORDERED: LIDOCAINE HCL 2% 2 ML VIAL/AMP(20MG/ML) INFIL ONE (08:46)
[2019-06-17] MEDS ORDERED: PROPOFOL IV EMULSION 10 MG/ML 20 ML VIAL IV ONE ×4 (08:46)
--- NOTE | 2019-06-17 09:33 | Anesthesiology Progress Note ---
Date of Service June 17, 2019 Anesthesia Post Procedure Vital Signs Vital Signs: Temp Pulse Pulse Resp BP Pulse Ox 06/17/19 09:25 36.7 C 47 L 16 107/68 100 06/17/19 09:15 36.7 C 46 L 17 98/60 L 100 06/17/19 09:05 36.7 C 52 L 18 98/53 L 100 06/17/19 08:55 36.5 C 49 L 15 95/65 L 97 06/17/19 08:45 36.5 C 54 L 12 101/69 96 06/17/19 08:36 36.5 C 71 12 99/58 L 98 06/17/19 06:13 37.1 C 59 L 18 111/72 96 Transfer of Care Handoff Completed per policy Notes Mental Status: alert / awake / arousable Patient Amnestic to Procedure: Yes Nausea / Vomiting: adequately controlled Pain: adequately controlled Airway Patency, RR, SpO2: stable & adequate BP & HR: stable & adequate Hydration State: stable & adequate Anesthetic Complications: no major complications apparent
[2019-06-17] MEDS ORDERED: ACETAMINOPHEN 65 ML IV ONE (12:00)
[2019-06-17] MEDS: FLUOXETINE HCL 20 MG CAP PO SCH (12:07)
[2019-06-17] MEDS ORDERED: ACETAMINOPHEN 325 MG TAB PO PRN (14:30)
[2019-06-17] MEDS: ACETAMINOPHEN W/CODEINE #3 1 TAB PO PRN ×2 (15:59→20:00)
[2019-06-17] MEDS ORDERED: AMITRIPTYLINE HCL 25 MG TAB PO SCH (21:00)
[2019-06-18] MEDS: FLUOXETINE HCL 20 MG CAP PO SCH (08:57)
[2019-06-18] MEDS ORDERED: ENOXAPARIN INJ 60 MG/0.6 ML SYR SQ SCH (09:00)
--- NOTE | 2019-06-18 09:37 | Obstetrical Progress Note ---
Date of Service June 18, 2019 Physical Exam Physical Exam: doing well no pain or bleeding abdomen soft for discharge Results & Data Vital Signs (Past 12 Hours) Vital Signs Temp Pulse Resp BP Pulse Ox 06/18/19 07:56 36.6 C 56 L 18 104/62 92 06/18/19 03:26 36.6 C 52 L 16 104/59 L 93 06/17/19 23:19 36.8 C 64 16 105/62 98
[2019-06-18] MEDS ORDERED: WARFARIN SOD 4 MG TAB PO SCH (16:00)
[2019-06-20] MEDS ORDERED: WARFARIN SOD 4 MG TAB PO SCH (16:00)
--- NOTE | 2019-07-06 22:48 | Operative Report ---
DATE OF OPERATION: 06/17/2019 PREOPERATIVE DIAGNOSIS: Menorrhagia. POSTOPERATIVE DIAGNOSES: Poly and menorrhagia. PROCEDURES: Hysteroscopy, D and C and NovaSure ablation and a MyoSure polypectomy. SURGEON: Jus Thorpe MD SUPERVISOR PAPER MACHINE: Mel Pugh. ESTIMATED BLOOD LOSS: 5 mL. CONDITION POSTOP: Stable. CLINICAL HISTORY: The patient is a 43-year-old female 0, para 0 who presents for a hysteroscopy, D and C, MyoSure polypectomy and NovaSure procedure after having extensive menorrhagia. The patient has multiple medical problems and will be staying overnight due to her medical condition. DESCRIPTION OF PROCEDURE: After satisfactory general anesthesia, the patient was prepped and draped in usual sterile fashion. Catheter was then used to empty the bladder of clear urine. Exam under anesthesia revealed the uterus to be anteverted. There were no other pelvic findings of note. A weighted speculum was then placed in the posterior vault of the vagina. Single Allis clamp was used to grasp the anterior lip of the cervix. The cervix was then sounded and dilated and then afterwards a MyoSure scope was inserted into the cavity visualizing the contents of the uterine cavity with saline distention. On exam, there was noted to be a polyp and the cavity otherwise was normal. A polyp was noted on the anterior portion of the uterine surface towards the posterior of the uterus. The scope was withdrawn. Following this, the MyoSure device was then entered. The polyp was then removed with the MyoSure device and submitted to pathology and this was also submitted with the D and C specimen created by using the MyoSure device to create a D and C specimen. The specimen was submitted to pathology together. Next step, NovaSure device was tested, was placed, and in the usual manner, the NovaSure was then used to ablate the lining of the cavity. No active bleeding was noted at the end of the procedure. The scope was then placed back into the cavity. Cavity was found to be intact. An adequate burn was noted. No active bleeding was noted at the end of the procedure. All remaining instruments were then removed. The final sponge, needle and instrument count were found to be correct. The patient was then placed upon a stretcher and taken to recovery room and she will be admitted overnight for observation. I attest to the content of the Intraoperative Record and any orders documented therein. Any exception s are noted below.
== END 2019-06-18 10:27 | disposition home or self-care (01) ==
LOC: 4N 05:38 → ASU 05:38

== ENCOUNTER 2019-08-09 17:58 | Inpatient (IN) ==
[2019-08-09] MEDS ORDERED: SODIUM CHLORIDE 0.9% 1000ML 1,000 ML IV ONE (19:01)
[2019-08-09 19:24] LABS: Mean Corpuscular Hgb Conc 31.6 g/dL (32-36)
[2019-08-09 19:31] LABS: Hematocrit (blood only) 34.5 % (37-47); Hemoglobin 10.9 g/dL (12.0-16.0); Mean Corpuscular Hemoglobin 26.8 pg (25-34); Mean Corpuscular Volume 84.8 fL (80-100); RDW Coefficient of Variation 17.3 % (11.5-14.5); RDW Standard Deviation 53.9 fL (36.4-46.3); Red Blood Count 4.07 M/uL (4.2-5.4); White Blood Count 3.58 K/uL (4.8-10.8)
[2019-08-09 19:42] LABS: Basophils # (auto) 0.01 K/uL (0-0.2); Basophils % (auto) 0.3 %; Eosinophils # (auto) 0.23 K/uL (0-0.5); Eosinophils % (auto) 6.4 %; Lymphocytes # (auto) 1.05 K/uL (1.2-3.4); Lymphocytes % (auto) 29.3 %; Monocytes # (auto) 0.36 K/uL (0.11-0.59); Monocytes % (auto) 10.1 %; Neutrophils # (auto) 1.93 K/uL (1.4-6.5); Neutrophils % (auto) 53.9 %; Ovalocytes 1+; Platelet Count 107 K/uL (130-400); Platelet Estimate Decreased (Normal)
--- NOTE | 2019-08-09 19:44 | XRay Report ---
SINGLE VIEW CHEST CLINICAL HISTORY: Dysphagia. FINDINGS: An AP, portable, upright chest radiograph is compared to chest x-ray and chest CT dated 10/06. The cardiomediastinal silhouette is unremarkable. There is mild elevation of right hemidiaphr agm. The lungs and pleural spaces are clear. No pneumothorax is seen. The bony thorax is grossly inta ct. Cholecystectomy clips are noted in the right upper quadrant. IMPRESSION: No active disease in the chest. Electronically signed by: Alex Venegas M.D. 08/09/2019 7:43 PM
[2019-08-09 19:45] LABS: Partial Thromboplastin Ratio 1.4; Partial Thromboplastin Time 38.8 Seconds (21.0-31.0); Prothrombin Time 37.4 Seconds (9.0-12.0)
[2019-08-09 20:07] LABS: Albumin Globulin Ratio 0.8 (0.9-2); Albumin Level 3.2 gm/dl (3.4-5.0); BUN Creatinine Ratio 11.4 (10-20); Bilirubin,Total 0.2 mg/dl (0.2-1); Calcium 10.1 mg/dl (8.5-10.1); Creatinine Clr Calc Pharmacy 70.4 ml/min; Est GFR (African American) 107.8; Globulin 3.9 gm/dl (2.5-4.0); Total Protein 7.1 gm/dl (6.4-8.2)
--- NOTE | 2019-08-09 21:28 | History & Physical Report ---
Date of Service August 09, 2019 Assessment & Plan (1) Dysphagia: Pt is 43 y/o F with PMH myotonic muscular dystrophy, PE on Coumadin, Factor V Leiden, bulimia, depression, anxiety presented with c/o progressive dysphagia. Pt states having dysphagia for over one year, initially with solid fo ods that has become worse. States usually able to tuck her chin, however reports feels like foods sitting in esophagus for several hours. Sometimes vomits after eating. States last week started having trouble swallowing liquids and reports choking. Does also admit to self inducing vomiting. Vitals stable CXR: no acute changes -NPO -IVF -Aspiration precautions -Speech eval, may require video swallow -GI consult -CBC, BMP in am (2) Supratherapeutic INR: (3) Pulmonary embolism: History of pulmonary embolism in the past H/O Factor V Leiden INR: 4.0 -Hold Coumadin -INR in AM (4) Myotonic muscular dystrophy: -Fall precautions -Aspiration precautions as above (5) Anxiety: (6) Depression: (7) Bulimia nervosa: Reports resumed self induced vomiting 6 months ago -Will hold fluoxetine for now, pending swallow eval -Suggest out patient psychiatry follow up DVT Prophylaxis -On Coumadin, INR: 4.[address] Tucker for routine care Pt was seen and care coordinated with Dr Byers. See addendum History of Present Illness Chief Complaint: Dysphagia Primary Care Provider: Paul Tucker MD Pt is 43 y/o F with PMH myotonic muscular dystrophy, PE on Coumadin, Factor V Leiden, bulimia, depression, anxiety presented to ER with c/o progressive dysphagia. Pt states having dysphagia for over one year, initially with solid foods that has become worse. States usually able to tuck her chin and feels like that assists however reports feels like foods sitting in esophagus for several hours. Sometimes vomits after eating. States last week started having trouble swallowing liquids and reports choking. Pt admits to self inducing vomiting three times a day for past 6 months, but states hasn't induced vomiting for past couple of days. Previously had inpatient treatment for bulimia, and has not had any further psychology follow up as she reports "didn't click with the provider". Denies fever/chills, diaphoresis, hematemesis, D/C, LAKHANI, dizziness, syncope, vision changes, neck pain, CP, SOB, orthopnea, palpitations, cough, sore throat, otalgia, rhinorrhea, abdominal pain, paresthesias, weakness, ex tremity weakness, extremity edema, rashes, urinary symptoms. Allergies Allergy/AdvReac Type Severity Reaction Status Date / Time hydrocodone Allergy Mild RASH, Verified 08/09/19 19:39 FACIAL/TONGUE SWELLING mold Allergy Mild . Verified 08/09/19 19:39 Penicillins Allergy Mild RASH Verified 08/09/19 19:39 chicken derived Allergy Unknown "MILD" Verified 08/09/19 19:39 azithromycin AdvReac Severe VOMITING Verified 08/09/19 19:39 Home Medications Home Medications Medication Instructions Recorded Confirmed Type fluoxetine 20 mg PO QAM 10/06/18 08/09/19 History warfarin 8 mg PO 5XWK 10/06/18 08/09/19 History warfarin 4 mg PO 2XWK 05/30/19 08/09/19 History acetaminophen 1,000 mg PO Q6H PRN 08/09/19 08/09/19 History melatonin 10 mg PO HS 08/09/19 08/09/19 History Past Med/Surg History Medical History Migraine (Chronic) Borderline personality disorder (Chronic) Chronic back pain (Chronic) Anxiety (Chronic) Depression (Chronic) Heterozygous Factor V Leiden mutation (Chronic Unknown) Pulmonary embolism (Chronic 08/15/12) B/L (2010); diagnosed with Factor V Leiden- on warfarin Bulimia nervosa (Chronic 07/11/13) Hiatal hernia with gastroesophageal reflux disease (07/11/13) no current issues Myotonic muscular dystrophy (Chronic) Anemia (Chronic) Double ureter B/L Hyperthyroidism h/o -- no medications needed. 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 Required: No Beliefs That Will Affect Care: None marital status: Single Current Living Situation: Family current occupational status: unemployed Feels Safe at Home: Yes Smoking Status: Never smoker Second Hand Exposure: No ; Hx Alcohol Use: Yes Alcohol type: wine Alcohol Intake Frequency: Rarely Hx Substance Use: No Review of Systems Review of Systems: All systems reviewed & are unremarkable except as noted in HPI & below Physical Exam Physical Exam: General: no acute distress, WDWN Head: normocephalic, atraumatic Eyes: PERRL, EOM's intact, conjunctiva non-injected, anicteric ENT: normal inspection external ears, nose, mucous membranes dry Neck: supple, trachea midline, non-tender Lungs: clear, no respiratory distress, no wheezing/rhonchi/rales CV: RRR, no murmur, no pretibial edema Abd: normal BS, soft, non-tender Ext: no cyanosis, no calf tenderness Neuro: A&O x 3, no focal deficits noted, normal affect Skin: warm, dry Results & Data Vital Signs (Past 12 Hours) Vital Signs Temp Pulse Pulse Resp BP BP Pulse Ox 08/09/19 21:03 68 16 128/88 97 08/09/19 20:00 75 14 128/87 95 08/09/19 19:14 88 14 116/72 95 08/09/19 18:10 36.7 C 84 20 123/84 95 Laboratory Results Short CBC 08/09/19 Range/Units 19:06 WBC 3.58 L (4.8-10.8) K/uL Hgb 10.9 L (12.0-16.0) g/dL Hct 34.5 L (37-47) % Plt Count 107 L (130-400) K/uL BMP 08/09/19 19:06 Sodium 143 Potassium 4.0 Chloride 113 H Carbon Dioxide 25 BUN 9 Creatinine 0.79 Glucose 110 H Calcium 10.1 Liver Function 08/09/19 Range/Units 19:06 Total Bilirubin 0.2 (0.2-1) mg/dl AST 26 (15-37) U/L ALT 33 (12-78) U/L Alkaline Phosphatase 133 H (45-117) U/L Albumin 3.2 L (3.4-5.0) gm/dl Diagnostic Findings CXR: IMPRESSION: No active disease in the chest. Code Status & VTE Plan VTE Prophylaxis Plan VTE Prophylaxis will be ordered: Yes Supervising Physician Co-Signing Physician Notes I, Dr. Jersey Byers, have seen and examined the patient and would like to comment that Sherita Davidson is a 43 year old female patient with chronic complicated health issues of MYOTONIC MUSCULAR DYSTROPHY and CHRONIC SYSTEMIC ANTICOAGULATION WITH COUMADIN because of HISTORY OF PULMONARY EMBOLISM in the past and FACTOR V LEIDEN MUTATION who has been progressive swallowing problems and recently within one week she has been have more DYSPHAGIA with food and now even having trouble with swallowing liquids. Likely based on her per appetite patient has SUPRATHERAPEUTIC INR. Patient also reported to be trying to self-induce vomiting when she does not feel the food or liquid going down. There is also some prior d iagnosis fo BULIMIA NERVOSA, ANXIETY, DEPRESSION -will start patient on D5 normal saline at 80 c/hr for now and hold oral medications -Will have patient be seen by speech and swallow services tomorrow -concern that patient may not be able to do barium swallow assessments but would appreciate their evaluation -patient also reported have upper endoscopy several years and she said that there was not structural obstruction at that time -will request gastroenterology whether any role of evaluating with upper endoscopy on this admission -INR will likely need reversal if any invasive procedures, hold coumadin for now, patient may get vitamin K if specialists plan on doing invasive testing -counseled patient that gastroenterology may be asked to do PEG tube if her dysphagia symptoms are irreversible or worsens Agree with other assessment and plans as documented by physician anesthesiology physician assistant Physical exam: General: no acute distress HEENT: external exam normal Lungs: clear to auscultation bilaterally, no wheezining, no crackles, breathing on room air, regular rate of breathing, no use of accessory muscles Heart: regular rate Abdomen: soft, nontender, positive bowel sounds Extremities: no edema Agree with other assessment and plans as documented by physician anesthesiology physician assistant My colleague Dr. Denise will be following the patient as hospitalist starting on 08/10/19
[2019-08-09] MEDS ORDERED: ACETAMINOPHEN 325 MG TAB PO PRN (22:31)
[2019-08-09] MEDS ORDERED: ONDANSETRON INJ 2 MG/ML 2 ML VIAL IV PRN (22:31)
[2019-08-09] MEDS: D5W AND NSS 1,000 ML IV SCH (23:51)
--- NOTE | 2019-08-09 23:52 | Emergency Department Note ---
Entered by Joselo Macias acting as a scribe for History of Present Illness General Chief complaint: Throat Injury Stated complaint: CANNOT SWALLOW Time Seen by Provider: 08/09/19 18:49 Source: patient History of Present Illness Onset (ago): day(s) 5 Location: neck (throat) Pain Consistency: + intermittent Quality: + other (inability to swallow food completely) Exacerbated By: + eating Associated symptoms: + chest pain (mild) and + other (vomiting with eating) The patient is a 43 y/o female who presents to the ED w/ CC of the intermittent inability to swallow food completely beginning five days ago. The patient states she has a history of myotonic muscular dystrophy. She reports she does not take medication for it. The patient notes she has been having difficulty swallowing since November, and it increased over the past few days. She reports she tried to eat chicken yesterday, and it took 6-8 hours to pass. She states she can feel the food get stuck in her throat. The patient reports she tried to eat macaroni and cheese today, but it got stuck in her throat, and she can feel it sitting in her esophagus. She notes she was able to swallow iced tea afterward, and she is still able to swallow her own saliva. She currently has mild chest discomfort secondary to the macaroni and cheese. The patient states she called her neurologist because she is no longer able to swallow water without vomiting. She reports she was told to go to [place]'s ER, but this was not possible as she does not drive, so she came here. The patient notes if nothing could be done here, she is to be transferred to [place] where her results will be obtained and then discussed for future options. She states she had her last swallow study in October, and she is having another one scheduled. The patient reports she was last evaluated by her neurologist last Thursday. She notes she is on Warfarin for bilateral PEs in 2010. The patient states a history of depression and an ablation. She reports she is on Prozac. Home Medications Home Medications Medication Instructions Recorded Confirmed Type fluoxetine 20 mg PO QAM 10/06/18 08/09/19 History warfarin 8 mg PO 5XWK 10/06/18 08/09/19 History warfarin 4 mg PO 2XWK 05/30/19 08/09/19 History acetaminophen 1,000 mg PO Q6H PRN 08/09/19 08/09/19 History melatonin 10 mg PO HS 08/09/19 08/09/19 History Allergies Allergy/AdvReac Type Severity Reaction Status Date / Time hydrocodone Allergy Mild RASH, Verified 08/09/19 19:39 FACIAL/TONGUE SWELLING mold Allergy Mild . Verified 08/09/19 19:39 Penicillins Allergy Mild RASH Verified 08/09/19 19:39 chicken derived Allergy Unknown "MILD" Verified 08/09/19 19:39 azithromycin AdvReac Severe VOMITING Verified 08/09/19 19:39 Past Med/Surg History Medical History Migraine (Chronic) Borderline personality disorder (Chronic) Chronic back pain (Chronic) Anxiety (Chronic) Depression (Chronic) Heterozygous Factor V Leiden mutation (Chronic Unknown) Pulmonary embolism (Chronic 08/15/12) B/L (2010); diagnosed with Factor V Leiden- on warfarin Bulimia nervosa (Chronic 07/11/13) Hiatal hernia with gastroesophageal reflux disease (07/11/13) no current issues Myotonic muscular dystrophy (Chronic) Anemia (Chronic) Double ureter B/L Hyperthyroidism h/o -- no medications needed. Surgical History History of blepharoplasty (Chronic) History of tonsillectomy (Chronic) History of adenoidectomy (Chronic) History of esophagogastroduodenoscopy (EGD) (Chronic) History of cholecystectomy (Chronic) History of cystoscopy (Chronic) H/O exploratory laparotomy (Chronic) + OVARIAN CYST REMOVAL; Exploratory lap: 01/15/17: Grade view 1, MAC#3, ETT 7.0 + TAP block at [facility] Hx of lumpectomy (Chronic) RIGHT Family History Other Cancer Hypertension Social History Preferred Language: Ukrainian Communication Ability: Effective Char Conveyor Tender Required: No Beliefs That Will Affect Care: None marital status: Single Current Living Situation: Spouse current occupational status: unemployed Feels Safe at Home: Yes Safety Concerns: Feels Safe At This Time Smoking Status: Never smoker Second Hand Exposure: No ; Hx Alcohol Use: No Hx Substance Use: No Review of Systems See HPI for pertinent positives & negatives. and A total of 10 systems reviewed and were otherwise negative Physical Exam Vital Signs Vital Signs - 24 hr 08/09/19 18:10 08/09/19 19:14 08/09/19 20:00 Temperature 36.7 C Temperature Source Oral Sepsis Recent Fever Within 48 Hours No Sepsis Action Taken by Nursing No Action Required Pulse Rate 84 Pulse Rate [Right Finger] 88 75 Pulse Rhythm Regular Pulse Rhythm [Right Finger] Regular Pulse Strength Normal Respiratory Rate 20 14 14 Respiratory Effort / Characteristics Non-Labored Spontaneous Non-Labored Spontaneous Non-Labored Spontaneous Respiratory Depth Normal Normal Normal Respiratory Pattern Regular Regular Regular Blood Pressure 123/84 Blood Pressure [Left Arm] 116/72 128/87 Blood Pressure Mean 97 Blood Pressure Mean [Left Arm] 86 100 Blood Pressure Position Sitting Pulse Oximetry 95 95 95 Oxygen Delivery Method Room Air Room Air Room Air 08/09/19 21:03 Temperature Temperature Source Sepsis Recent Fever Within 48 Hours Sepsis Action Taken by Nursing Pulse Rate Pulse Rate [Right Finger] 68 Pulse Rhythm Pulse Rhythm [Right Finger] Pulse Strength Respiratory Rate 16 Respiratory Effort / Characteristics Non-Labored Spontaneous Respiratory Depth Normal Respiratory Pattern Regular Blood Pressure Blood Pressure [Left Arm] 128/88 Blood Pressure Mean Blood Pressure Mean [Left Arm] 101 Blood Pressure Position Pulse Oximetry 97 Oxygen Delivery Method Room Air Constitutional: Vital signs reviewed. Eyes: Pupils are equal round reactive to light. Conjunctiva are noninjected. ENT: Pharynx is clear without erythema or exudate. Mucous membranes are moist. Neck supple without meningeal signs. Respiratory: Clear to auscultation bilaterally. Breath sounds are equal bilaterally. No stridor. No wheezing. Cardiovascular: Regular rate and rhythm. No rubs or gallops. GI: Soft, nondistended and nontender. Bowel sounds are present. Musculoskeletal: No peripheral edema. No lower extremity tenderness. Integumentary: No cyanosis. Neurological: The patient is awake and alert. No focal deficits. Psychiatric: Normal affect. Course 185: Past medical records reviewed. The patient was evaluated in room B11B. A complete history and physical exam was performed. 2019: The patient is still able to swallow her own saliva upon reevaluation. I updated her of her test results. Tim neurologist at [place]. 2023: I discussed the patient's case with Dr. Kumar, [facility] [facility]. He does not see the need for an acute transfer. He recommended the patient receive IV fluids and a swallow study. He notes she may need a G-Tube placed. They do not have an available bed at [place]. 2033: I reviewed the patient's case with Nella Rajan PA-C, [facility] Hospitalist - attending Dr. Byers. She will evaluate the patient for further ma nagement. 2037: Upon reevaluation, the patient is resting comfortably, and she feels as if the macaroni and cheese is passing. I discussed laboratory and radiographic results with her. She verbalized agreement of the treatment plan. The patient will be evaluated for further management and care. Administered Medications Discontinued Medications Sodium Chloride (Nss 1000ml) 1,000 mls @ 999 mls/hr IV .Q1H1M ONE Stop: 08/09/19 20:01 Last Infusion: 08/09/19 20:35 Dose: 0 mls/hr Documented by: [id number] Admin: 08/09/19 19:15 Dose: 999 mls/hr Documented by: [id number] Medical Decision Making Differential Diagnosis Differential diagnosis includes: dysphagia, esophageal foreign body, food bolus impaction, FLAVIO, dehydration Medical Records Attestation: I reviewed the patient's medical records. I did perform a limited focused review of portions of the patient's old chart on the electronic medical record. The patient has had no recent pertinent visits to this hospital. Home Medications Current Medication List: was personally reviewed by me Laboratory Data Attestation: I reviewed the patient's lab results. Result diagrams: 08/09/19 19:06 08/09/19 19:06 Lab Results 08/09/19 08/09/19 08/09/19 Range/Units 19:06 19:06 19:06 WBC 3.58 L (4.8-10.8) K/uL RBC 4.07 L (4.2-5.4) M/uL Hgb 10.9 L (12.0-16.0) g/dL Hct 34.5 L (37-47) % MCV 84.8 (80-100) fL MCH 26.8 (25-34) pg MCHC 31.6 L (32-36) g/dL RDW Std Deviation 53.9 H (36.4-46.3) fL RDW Coeff of Ora 17.3 H (11.5-14.5) % Plt Count 107 L (130-400) K/uL Immature Gran % (Auto) 0.0 % Neut % (Auto) 53.9 % Lymph % (Auto) 29.3 % [place] % (Auto) 10.1 % Eos % (Auto) 6.4 % Baso % (Auto) 0.3 % Immature Gran # (Auto) 0.00 (0.00-0.02) K/uL Neut # (Auto) 1.93 (1.4-6.5) K/uL Lymph # (Auto) 1.05 L (1.2-3.4) K/uL [place] # (Auto) 0.36 (0.11-0.59) K/uL Eos # (Auto) 0.23 (0-0.5) K/uL Baso # (Auto) 0.01 (0-0.2) K/uL Platelet Estimate Decreased L (Normal) Ovalocytes 1+ PT 37.4 H (9.0-12.0) Seconds INR 4.0 H (0.9-1.1) APTT 38.8 H (21.0-31.0) Seconds PTT Ratio 1.4 Sodium 143 (136-145) mmol/L Potassium 4.0 (3.5-5.1) mmol/L Chloride 113 H (98-107) mmol/L Carbon Dioxide 25 (21-32) mmol/L Anion Gap 6.0 (3-11) BUN 9 (7-18) mg/dl Creatinine 0.79 (0.6-1.2) mg/dl Est Cr Clr Drug Dosing 70.4 ml/min Est GFR ( Amer) 107.8 Est GFR (Non-Af Amer) 93.0 BUN/Creatinine Ratio 11.4 (10-20) Glucose 110 H (70-99) mg/dl Calcium 10.1 (8.5-10.1) mg/dl Total Bilirubin 0.2 (0.2-1) mg/dl AST 26 (15-37) U/L ALT 33 (12-78) U/L Alkaline Phosphatase 133 H (45-117) U/L Total Protein 7.1 (6.4-8.2) gm/dl Albumin 3.2 L (3.4-5.0) gm/dl Globulin 3.9 (2.5-4.0) gm/dl Albumin/Globulin Ratio 0.8 L (0.9-2) Imaging Data Radiologist's Impression: Radiology results as stated below per my review and the radiologist's interpretation: SINGLE VIEW CHEST CLINICAL HISTORY: Dysphagia. FINDINGS: An AP, portable, upright chest radiograph is compared to chest x-ray and chest CT dated 10/28/2017. The cardiomediastinal silhouette is unremarkable. There is mild elevation of right hemidiaphragm. The lungs and pleural spaces are clear. No pneumothorax is seen. The bony thorax is grossly intact. Cholecystectomy clips are noted in the right upper quadrant. IMPRESSION: No active disease in the chest. Electronically signed by: Alex Venegas M.D. 08/09/2019 7:43 PM Blood Pressure Blood Pressure Findings: Elevated blood pressure Blood Pressure Disposition: elevated BP felt to be situational MDM Narrative I did evaluate the patient as noted above. The patient has myotonic dystrophy. She has had progressive worsening of her difficulty swallowing for the past several days. She stated that she got some chicken stuck yesterday that took several hours to get down. She is now having difficulty with water. She ate some macaroni and she was at 4 PM today and feels like it is just very slowly passing through her esophagus. She was able to drink tea afterwards and also stated that she is able to swallow her own saliva. She therefore does not have an impaction. During her stay in the emergency department she stated that she felt like macaroni cheese was moving down her esophagus. IV access was established. I did treated with normal saline IV. The patient was placed on a continuous log deckman. I did order and personally reviewed the images of the patient's chest x-ray as described above. Her chest x-ray is unremarkable. I did order and review the patient's blood work as noted in the electronic medic al record. She has pancytopenia. Renal function is preserved. INR supratherapeutic at 4. I did discuss the test results with the patient. I did discuss the case with her neurologist at [facility]. He stated that there was no need for emergent transfer. He did recommend hospitalization locally for further care and evaluation and possible placement of G-tube. The patient was happy with this plan. I did discuss case with the hospitalist and rehabilitation case coordinator. Impression & Plan Dysphagia, Supratherapeutic INR, Pancytopenia Discharge Plan Visit Data *Final* Discharge Date/Time: 08/09/19 21:51 Chief Complaint: Throat Injury Stated Complaint: CANNOT SWALLOW ED Provider: Vazquez Feliz Discharge Problem: Dysphagia, Supratherapeutic INR, Pancytopenia Patient Disposition: Being Evaluated by Hospitalist Discharge Instructions Interventions: ED Discharge Assessment Last Done: 08/09/19 21:51 Discharge Problem: Dysphagia Qualifiers: Dysphagia type: unspecified Qualified Code(s): R13.10 - Dysphagia, unspecified The scribe's documentation has been prepared under my direction and personally reviewed by me in its entirety. I confirm that the note above accurately reflects all work, treatment, procedures, and medical decision making performed by me.
[2019-08-10] MEDS ORDERED: INFLUENZA VIRUS QUAD VACCINE 0.5 ML SYR IM ONE (05:45)
[2019-08-10] MEDS ORDERED: INFLUENZA ADMINISTRATION CHARGE ONE (05:45)
--- NOTE | 2019-08-10 08:08 | Gastrointestinal Consultation ---
Date of Consultation August 10, 2019 Assessment & Plan (1) Dysphagia: Though pt's symptoms are very suggestive of oral pharyngeal dysphagia related to Muscular Dystrophy, barium swallow this morning documents normal swallowing function and disordered esophageal motility. Recommend EGD to r/o esophagitis, empirically dilate the esophagus which can improve esophageal spasm. Discussed possibly placing a button type PEG during this admission, explaining that MD is a degenerative disease and she will eventually need one. Would need INR to be < or = 1.4 to have pt undergo esophageal dilation or PEG tube placement. Discussed with Dr. Nation who will manage reversing the anticoagulation and may start heparin. Heparin would need to be DC'ed 6 hrs prior to procedure. Present on Admission?: Yes Supervising Physician Co-Signing Physician Notes I performed a history and physical examination of the patient, including specifically on physical exam - soft, nontender abdomen. I have discussed the patient's management with Deandre. Please refer to the nurse practitioner's note for the documented findings and plan of care. patient with chronic dysphagia related to her muscular dystrophy disease but recently worsening ginev the progression of her disease. Reports Hx of HH repair. Plan for EGD tomorrow. We discussed PEg tube placement to supplement her nutrition when her dysphagia worsens and she agreed. Need to correct her INR. History of Present Illness Reason for Consultation: Ms. Sherita Davidson is a 43 yr old female pt of Dr. Tucker with a hx of anxiety depression, Factor V Leiden mutation,bilat PEs in 2010 on warfarin, hiatal hernia, borderline personality disorder, myotonic muscular dystrophy, bulimia (resolved 2013 with counselling), depression, anxiety presented to the ED yesterday for dysphagia. She reports fairly consistent, progressive symptoms for approx one year. She describes food getting "stuck," and points to the base of the throat, sometimes causing a cough, sometimes coughing out the food, "when the food hits my gag reflex." She believes that food may also get stuck in the lower chest though is not clear on that. At any rate the lower chest issue is much less frequent and less severe if present. She denies any epigastric pain and has not had any reflux symptoms for about a year. She is aware that MD decreases the effectiveness of the swallowing muscles and tells me that after [place] swallow [place] [facility] she was encouraged to consider a PEG tube. 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 On arrival, INR was supratherapeutic at 4.0 and repeat today after holding the warfarin (most recent dose 08/08) was 4.9. She underwent EGD in December [address] Beltran with findings of grade B esophagitis and gastric erosions. She believes that she may have also undergone EGD and video swallow more recently at [facility] (as her neurologist is there). Of note, she is not maintained on an acid reducing medication. Attending Physician: Escobar Denise MD Allergies Allergy/AdvReac Type Severity Reaction Status Date / Time hydrocodone Allergy Mild RASH, Verified 08/09/19 19:39 FACIAL/TONGUE SWELLING mold Allergy Mild . Verified 08/09/19 19:39 Penicillins Allergy Mild RASH Verified 08/09/19 19:39 chicken derived Allergy Unknown "MILD" Verified 08/09/19 19:39 azithromycin AdvReac Severe VOMITING Verified 08/09/19 19:39 Home Medications Home Medications Medication Instructions Recorded Confirmed Type fluoxetine 20 mg PO QAM 10/06/18 08/09/19 History warfarin 8 mg PO 5XWK 10/06/18 08/09/19 History warfarin 4 mg PO 2XWK 05/30/19 08/09/19 History acetaminophen 1,000 mg PO Q6H PRN 08/09/19 08/09/19 History melatonin 10 mg PO HS 08/09/19 08/09/19 History Patient History Medical History Migraine (Chronic) Borderline personality disorder (Chronic) Chronic back pain (Chronic) Anxiety (Chronic) Depression (Chronic) Heterozygous Factor V Leiden mutation (Chronic Unknown) Pulmonary embolism (Chronic 08/15/12) B/L (2010); diagnosed with Factor V Leiden- on warfarin Bulimia nervosa (Chronic 07/11/13) Hiatal hernia with gastroesophageal reflux disease (07/11/13) no current issues Myotonic muscular dystrophy (Chronic) Anemia (Chronic) Double ureter B/L Hyperthyroidism h/o -- no medications needed. Surgical History History of blepharoplasty (Chronic) History of tonsillectomy (Chronic) History of adenoidectomy (Chronic) History of esophagogastroduodenoscopy (EGD) (Chronic) History of cholecystectomy (Chronic) History of cystoscopy (Chronic) H/O exploratory laparotomy (Chronic) + OVARIAN CYST REMOVAL; Exploratory lap: 01/15/17: Grade view 1, MAC#3, ETT 7.0 + TAP block at [facility] Hx of lumpectomy (Chronic) RIGHT Family History Other Cancer Hypertension Social History Preferred Language: Eritrean Communication Ability: Effective School Psychologist Assistant Required: No Beliefs That Will Affect Care: None marital status: Single Current Living Situation: Spouse current occupational status: unemployed Feels Safe at Home: Yes Safety Concerns: Feels Safe At This Time Smoking Status: Never smoker Second Hand Exposure: No ; Hx Alcohol Use: No Hx Substance Use: No Review of Systems Review of Systems: ROS: Gen: + generalized weakness due to MD. No fevers or recent weight loss Eyes: No eye redness, or pain, no recent vision changes Resp: No SOB, no cough Cardio: No palpitations/irregular beats, no chest pain GI: + coughing with swallowing. No abdominal pain, no nausea/vomiting; denies reflux symptoms. : Denies pain on urination Skin: No jaundice, itching or new rashes Physical Exam Constitutional: WD/WN, vitals as above Eyes: PERRL, conjunctivae normal, anicteric sclerae ENMT: external ear and nose normal, oropharynx normal Neck: trachea midline, no thyromegaly Respiratory: normal respiratory effort, lungs clear to auscultation Cardiovascular: RRR, no murmur, no edema Gastrointestinal (Abdomen): normal bowel sounds, soft, nontender, no hepatosplenomegaly Skin: no rashes, warm and dry Neurologic: PERRL, EOMI, accommodation nl, no face palsy, no dysarthria Psychiatric: A+Ox3, euthymic affect Lymphatic: no cervical or axillary lymphadenopathy Results & Data Vital Signs (Past 12 Hours) Vital Signs Temp Pulse Pulse Resp BP BP Pulse Ox 08/10/19 07:43 36.8 C 57 L 18 107/68 94 08/09/19 23:45 36.9 C 53 L 16 112/74 96 08/09/19 22:43 36.7 C 59 L 16 122/77 97 08/09/19 21:51 58 L 16 104/69 98 08/09/19 21:03 68 16 128/88 97 Diagnostic Findings Barium swallow 08/10/19: 1. Normal swallowing function. 2. Esophageal dysmotility/spasm distally as well as of the gastroesophageal junction.. 3. Mild gastroesophageal reflux. CXR: IMPRESSION: No active disease in the chest. (1) Dysphagia Dysphagia type: unspecified Qualified Code(s): R13.10 - Dysphagia, unspecified
[2019-08-10 08:09] LABS: Mean Corpuscular Hgb Conc 31.4 g/dL (32-36)
[2019-08-10 08:18] LABS: BUN Creatinine Ratio 8.1 (10-20); Calcium 8.9 mg/dl (8.5-10.1); Creatinine Clr Calc Pharmacy 89.7 ml/min; Est GFR (African American) 129.1; Est GFR (Non-African American) 111.4; Potassium 3.8 mmol/L (3.5-5.1)
[2019-08-10 08:28] LABS: INR 4.9 (0.9-1.1); Prothrombin Time 45.2 Seconds (9.0-12.0)
[2019-08-10 08:32] LABS: Hematocrit (blood only) 32.5 % (37-47); Hemoglobin 10.2 g/dL (12.0-16.0); Mean Corpuscular Hemoglobin 26.6 pg (25-34); Mean Corpuscular Volume 84.9 fL (80-100); RDW Coefficient of Variation 17.5 % (11.5-14.5); RDW Standard Deviation 54.7 fL (36.4-46.3); Red Blood Count 3.83 M/uL (4.2-5.4); White Blood Count 3.41 K/uL (4.8-10.8)
[2019-08-10 08:38] LABS: Platelet Count 100 K/uL (130-400); Platelet Estimate Decreased (Normal)
--- NOTE | 2019-08-10 11:10 | Fluoroscopy Report ---
FL barium swallow CLINICAL HISTORY: s/s of esophageal dysfunction COMPARISON STUDY: None FLUOROSCOPY TIME: 1.1 minutes NUMBER OF FLUOROSCOPIC IMAGES: 27 FINDINGS: The patient initiates swallowing function well. Esophagus is normal in course and caliber. There are findings of moderate esophageal spasm at the gastroesophageal junction. There are findings of mild gastroesophageal reflux. Patient ingested the barium tablet easily which passed normally into the stomach. IMPRESSION: 1. Normal swallowing function. 2. Esophageal dysmotility/spasm distally as well as of the gastroesophageal junction.. 3. Mild gastroesophageal reflux. The above report was generated using voice recognition software. It may contain grammatical, syntax or spelling errors. Electronically signed by: Casper Bray M.D. 08/10/2019 11:09 AM
--- NOTE | 2019-08-10 11:50 | Hospitalist Progress Note ---
Date of Service August 10, 2019 Assessment & Plan (1) Dysphagia: Present on admission with difficulty to swallow where food stuck in her throat Barium swallow showed normal swallowing function. Esophageal dysmotility/spasm distally as well as of the gastroesophageal junction.. GI on board recommended EGD once INR dropped Speech on board, Recommended to start on clear liquid diet Will start on PPI (2) Supratherapeutic INR: (3) Pulmonary embolism: History of pulmonary embolism in the past H/O Factor V Leiden INR 4.9 today Continue to hold Coumadin (4) Myotonic muscular dystrophy: Fall precautions Aspiration precautions as above (5) Anxiety: (6) Depression: (7) Bulimia nervosa: Reports resumed self induced vomiting 6 months ago Will resume fluoxetine Will need to follow with psych outpatient DVT Prophylaxis On Coumadin, INR: 4.[address] Tucker for routine care Subjective Pt was seen and examined. Lying in bed with no distress. Pt said that she is hungry Pt said that she continues to have food or drink stuck on her throat Denies any chest pain, palpitation, dizziness and SOB Physical Exam Physical Exam: General- No acute distress Head- atraumatic Eyes- PERRL, EOMI, ENT- oropharynx clear Neck- supple, no JVD Lungs- clear to auscultation Heart- regular rhythm; no murmur Abdomen- normal bowel sounds, soft, nontender Extremities- no calf tenderness Neuro- alert, oriented x 3; PERRL, EOMI; no facial palsy; no dysarthria Skin- warm & dry Results & Data Vital Signs (Past 12 Hours) Vital Signs Temp Pulse Resp BP Pulse Ox 08/10/19 07:43 36.8 C 57 L 18 107/68 94
[2019-08-10] MEDS ORDERED: FLUOXETINE HCL 20 MG CAP PO ONE (13:48)
[2019-08-10] MEDS: D5W AND NSS 1,000 ML IV SCH (13:50)
[2019-08-10] MEDS ORDERED: LOPERAMIDE HCL 2 MG CAP PO STA (14:47)
[2019-08-10] MEDS ORDERED: PHYTONADIONE 5 MG in SODIUM CHLORIDE 0.9% 50 ML IV ONE (15:39)
[2019-08-10] MEDS: PANTOprazole 40 MG TAB PO SCH (19:57)
[2019-08-11] MEDS ORDERED: CLINDAMYCIN 900 MG in DEXTROSE 5% 50 ML IV SCH (06:00)
[2019-08-11 07:26] LABS: INR 1.4 (0.9-1.1); Prothrombin Time 14.3 Seconds (9.0-12.0)
[2019-08-11] MEDS: PANTOprazole 40 MG TAB PO SCH ×2 (08:55→20:20)
[2019-08-11] MEDS: FLUOXETINE HCL 20 MG CAP PO SCH (08:56)
--- NOTE | 2019-08-11 10:34 | Gastroenterology Progress Note ---
Date of Service August 11, 2019 Assessment & Plan (1) Dysphagia: Though pt's symptoms are very suggestive of oral pharyngeal dysphagia related to Muscular Dystrophy, barium swallow this morning documents normal swallowing function and disordered esophageal motility. Recommend EGD to r/o esophagitis, empirically dilate the esophagus which can improve esophageal spasm. INR is 1.4 this morning, so safe to proceed fwith EGD +/- PEG. Pt is continuing to consider PEG now vs. EGD today and OP discussion to consider PEG in a few months. Pt and mother seem to favor OP discussion with records from [place] before deciding to go forward with PEG. [place] [facility] [place]. Present on Admission?: Yes Supervising Physician Co-Signing Physician Notes I performed a history and physical examination of the patient, including specifically on physical exam - soft, nontender abdomen. I have discussed the patient's management with Deandre. Please refer to the nurse practitioner's note for the documented findings and plan of care. I spoke to the patient prior to the procedure and she decided she wants the PEG tube, she is not able to swallow solids and hence worries about maintaining nutrition. I also reassured her that we can removed the tube anytime she wants it removed. I explained risk, benefit and alternatives. Subjective For EGD today for dysphagia, possible PEG tube insertion. Pt tearful, unable to decide if she wants PEG, asked me to speak with her mother, called her mother to come to the hospital. We had a long discussion: pt, mother, myself regarding pros/cons of going forward with PEG tube insertion today, including: Pros: will be in place when her disease progresses and dysphagia worsens. 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 Though pt feels that swallowing is difficult for her, she is able to eat hamburgers (small pieces, chew thoroughly) and would still choose to eat these regular foods vs. use the PEG at this time. Mother has a preference toward waiting for PEG until it is, "absolutely necessary." Pt/mother asked for help with techniques on how to swallow to avoid need for PEG. Review of Systems Review of Systems: ROS: Gen: + generalized weakness due to MD. No fevers or recent weight loss Eyes: No eye redness, or pain, no recent vision changes Resp: No SOB, no cough Cardio: No palpitations/irregular beats, no chest pain GI: + coughing with swallowing. No abdominal pain, no nausea/vomiting; denies reflux symptoms. : Denies pain on urination Skin: No jaundice, itching or new rashes Physical Exam Constitutional: WD/WN, vitals as above Eyes: PERRL, conjunctivae normal, anicteric sclerae ENMT: external ear and nose normal, oropharynx normal Neck: trachea midline, no thyromegaly Respiratory: normal respiratory effort, lungs clear to auscultation Cardiovascular: RRR, no murmur, no edema Gastrointestinal (Abdomen): normal bowel sounds, soft, nontender, no hepatosplenomegaly Skin: no rashes, warm and dry Neurologic: PERRL, EOMI, accommodation nl, no face palsy, no dysarthria Psychiatric: A+Ox3, euthymic affect Lymphatic: no cervical or axillary lymphadenopathy Results & Data Vital Signs (Past 12 Hours) Vital Signs Temp Pulse Resp BP Pulse Ox 08/11/19 06:55 36.7 C 55 L 18 94/62 L 97 08/10/19 23:22 36.5 C 52 L 18 105/69 93 (1) Dysphagia Dysphagia type: unspecified Qualified Code(s): R13.10 - Dysphagia, unspecified
[2019-08-11 12:41] LABS: Pregnancy Test, Serum Negative (Negative)
--- NOTE | 2019-08-11 15:01 | Anesthesiology Consultation ---
Date of Service August 11, 2019 Assessment & Plan (1) Encounter for pre-operative examination: Chart Review Chart Review: Acceptable Risk for Surgery and Patient NOT seen in Pre Admission Testing Consults Requested none History Surgery Operation Date: 08/11/19 17:00 Proposed Procedures p EGD with Gastric Tube Placement - Kennedy Gutierrez MD Height/Weight Height: 4 ft 8 in Weight: 66.4 kg Allergies Allergy/AdvReac Type Severity Reaction Status Date / Time hydrocodone Allergy Mild RASH, Verified 08/09/19 19:39 FACIAL/TONGUE SWELLING mold Allergy Mild . Verified 08/09/19 19:39 Penicillins Allergy Mild RASH Verified 08/09/19 19:39 chicken derived Allergy Unknown "MILD" Verified 08/09/19 19:39 azithromycin AdvReac Severe VOMITING Verified 08/09/19 19:39 Medications Home Medications Medication Instructions Recorded Confirmed Last Taken fluoxetine 20 mg PO QAM 10/06/18 08/09/19 08/09/19 warfarin 8 mg PO 5XWK 10/06/18 08/09/19 08/09/19 8 MG warfarin 4 mg PO 2XWK 05/30/19 08/09/19 08/08/19 4 MG acetaminophen 1,000 mg PO Q6H PRN 08/09/19 08/09/19 Unknown melatonin 10 mg PO HS 08/09/19 08/09/19 08/08/19 Active Medications Generic Name Dose Route Start Last Admin Trade Name Freq PRN Reason Stop Dose Admin Fluoxetine HCl 20 mg 08/11/19 09:00 08/11/19 08:56 Prozac PO 09/10/19 08:59 20 mg QAM JESSY Administration Pantoprazole Sodium 40 mg 08/10/19 21:00 08/11/19 08:55 Protonix PO 08/14/19 09:01 40 mg BID JESSY Administration Past Medical History Medical History Migraine (Chronic) Borderline personality disorder (Chronic) Chronic back pain (Chronic) Anxiety (Chronic) Depression (Chronic) Heterozygous Factor V Leiden mutation (Chronic Unknown) Pulmonary embolism (Chronic 08/15/12) B/L (2010); diagnosed with Factor V Leiden- on warfarin Bulimia nervosa (Chronic 07/11/13) Hiatal hernia with gastroesophageal reflux disease (10/07/13) no current issues Myotonic muscular dystrophy (Chronic) Anemia (Chronic) Double ureter B/L Hyperthyroidism h/o -- no medications needed. Past Family History Family History Other Cancer Hypertension Past Surgical History Surgical History History of blepharoplasty (Chronic) History of tonsillectomy (Chronic) History of adenoidectomy (Chronic) History of esophagogastroduodenoscopy (EGD) (Chronic) History of cholecystectomy (Chronic) History of cystoscopy (Chronic) H/O exploratory laparotomy (Chronic) + OVARIAN CYST REMOVAL; Exploratory lap: 01/15/17: Grade view 1, MAC#3, ETT 7.0 + TAP block at [facility] Hx of lumpectomy (Chronic) RIGHT Social History Smoking Status: Never smoker Hx Alcohol Use: No Alcohol type: wine alcohol intake frequency: holidays/special occasions only Hx Substance Use: No substance use type: does not use Physical Exam Vital Signs Last Vital Signs Temp 36.7 C 08/11/19 06:55 Pulse 55 L 08/11/19 06:55 Resp 18 08/11/19 06:55 BP 94/62 L 08/11/19 06:55 Pulse Ox 97 08/11/19 06:55 Testing Laboratory Results 08/10/19 07:59 08/10/19 07:15 PT 14.3 Seconds (9.0-12.0) H 08/11/19 06:57 INR 1.4 (0.9-1.1) H 08/11/19 06:57 APTT 38.8 Seconds (21.0-31.0) H 08/09/19 19:06
[2019-08-11] MEDS ORDERED: PROPOFOL IV EMULSION 10 MG/ML 20 ML VIAL IV ONE (15:58)
[2019-08-11] MEDS ORDERED: LIDOCAINE HCL 2% 2 ML VIAL/AMP(20MG/ML) INFIL ONE (15:58)
[2019-08-11] MEDS ORDERED: fentaNYL citrate 100 MCG/2 ML VIAL ONE (15:58)
[2019-08-11] MEDS ORDERED: NALOXONE HCL 0.4 MG/1 ML VIAL/CARP ONE (17:12)
--- NOTE | 2019-08-11 17:29 | GI REPORT ---
Patient Name: Sherita Davidson Procedure Date: 08/11/2019 4:08 PM Date of : 1975 Admit Type: Inpatient Age: 43 Gender: Female Attending MD: Kennedy Gutierrez MD Procedure: Upper GI endoscopy Providers: Kennedy Gutierrez MD Referring MD: ELISABET LI Indications: Dysphagia, Place PEG due to dysphagia Medicines: Propofol per Anesthesia Complications: No immediate complications. Estimated Blood Loss: Estimated blood loss: none. Procedure: Pre-Anesthesia Assessment: - Prior to the procedure, a History and Physical was performed, and patient medications, allergies and sensitivities were reviewed. The patient's tolerance of previous anesthesia was reviewed. - The risks and benefits of the procedure and the sedation options and risks were discussed with the patient. All questions were answered and informed consent was obtained. - Patient identification and proposed procedure were verified prior to the procedure by the physician and the nurse. The procedure was verified in the procedure room. - Pre-procedure physical examination revealed no contraindications to sedation. After obtaining informed consent, the endoscope was passed under direct vision. Throughout the procedure, the patient's blood pressure, pulse, and oxygen saturations were monitored continuously. The Endoscope was introduced through the mouth, and advanced to the second part of duodenum. The upper GI endoscopy was accomplished without difficulty. The patient tolerated the procedure poorly due to the patient's inability to tolerate conscious sedation. Findings: The examined esophagus was normal. The entire examined stomach was normal. PEG tube could not be placed as patient had significant hypoxia just a minute after starting the procedure requiring immediate termination of the procedure to maintain airway and improve oxygenation. The duodenal bulb and second portion of the duodenum were normal. Impression: - Normal esophagus. - Normal stomach. - Normal duodenal bulb and second portion of the duodenum. - No specimens collected. Recommendation: - [facility] patient to [facility] for [facility] care. - Clear liquid diet. - NPO after midnight. - Can use Heparin drip over night. - Repeat upper endoscopy tomorrow in OR under general anesthesia for PEG tube placement. - I spoke to the family and updated them about the plan. Kennedy Gutierrez MD 08/11/2019 5:28:09 PM This report has been signed electronically. Note Initiated On: 08/11/2019 4:08 PM Number of Addenda: 0 I attest to the content of the Intraoperative Record and orders documented therein, exceptions below {[id number]}
--- NOTE | 2019-08-11 17:43 | Anesthesiology Progress Note ---
Date of Service August 11, 2019. The procedure was aborted about ten minutes after it started due to intolerance to narcotics secondary to her myotonic dystrophy. She had been given 100 mcg of fentanyl and little bumps of propofol. Her 02 sat dropped into the high 80s and she was bagged for awhile and the procedure resumed.When her 02 sat dropped a second time into the 80s she was given narcan 0.2 and she came right back breathing spontaneously and waking up quickly. Her sats came up to 97 and stayed there. We took her to the main PACU where she could be watched for a longer period time. within a half hour she was wide awake and carrying on a conversation with the nurse. Anesthesia Post Procedure Vital Signs Vital Signs: Temp Pulse Pulse Resp BP Pulse Ox 08/11/19 17:20 78 20 88/66 L 96 08/11/19 17:10 79 18 100/57 L 99 08/11/19 17:00 36.8 C 84 16 95/80 L 98 08/11/19 15:06 36.9 C 78 22 155/82 H 98 08/11/19 06:55 36.7 C 55 L 18 94/62 L 97 08/10/19 23:22 36.5 C 52 L 18 105/69 93 Transfer of Care Handoff Completed per policy Notes Mental Status: alert / awake / arousable Patient Amnestic to Procedure: Yes Nausea / Vomiting: adequately controlled Pain: adequately controlled Airway Patency, RR, SpO2: stable & adequate BP & HR: stable & adequate Hydration State: stable & adequate Anesthetic Complications: no major complications apparent and Pt Satisfied with anesthetic care
[2019-08-11] MEDS ORDERED: HEPARIN IV BOLUS 4,000 UNITS in SYRINGE 0 ML IV STA (19:01)
--- NOTE | 2019-08-11 19:09 | Hospitalist Progress Note ---
Date of Service August 11, 2019 Assessment & Plan (1) Dysphagia: Present on admission with difficulty to swallow where food stuck in her throat Barium swallow showed normal swallowing function. Esophageal dysmotility/spasm distally as well as of the gastroesophageal junction.. GI on board EGD done showed normal esophagus. Procedure stopped early because of desaturation Case discussed with Gastro plan to repeat upper endoscopy tomorrow in OR under general anesthesia for PEG tube placement. Continue on clear liquid diet NPO after midnight (2) Supratherapeutic INR: (3) Pulmonary embolism: History of pulmonary embolism in the past H/O Factor V Leiden Vit K IV given yesterday for the procedure Continue to hold Coumadin for PEG tube placement Starting on heparin drip IV, will hold in am for the procedure (4) Myotonic muscular dystrophy: Fall precautions Aspiration precautions as above (5) Anxiety: (6) Depression: (7) Bulimia nervosa: Reports resumed self induced vomiting 6 months ago Continue fluoxetine Will need to follow with psych outpatient DVT Prophylaxis On Coumadin, INR: 1.4 on Heparin drip Follows with Dr Tucker for routine care Subjective Pt was seen and examined. Lying in bed with no distress Pt had EGD done today and procedure was terminated early because of desaturation Pt said that her breathing improves Denies any chest pain, palpitation, dizziness and SOB Physical Exam Physical Exam: General- No acute distress Head- atraumatic Eyes- PERRL, EOMI, ENT- oropharynx clear Neck- supple, no JVD Lungs- clear to auscultation Heart- regular rhythm; no murmur Abdomen- normal bowel sounds, soft, nontender Extremities- no calf tenderness Neuro- alert, oriented x 3; PERRL, EOMI; no facial palsy; no dysarthria Skin- warm & dry Results & Data Vital Signs (Past 12 Hours) Vital Signs Temp Pulse Pulse Resp BP Pulse Ox 08/11/19 18:45 36.4 C L 96 H 16 93/62 L 93 08/11/19 18:30 36.9 C 88 17 103/68 94 08/11/19 18:15 36.9 C 80 16 101/67 91 08/11/19 17:50 71 19 104/62 94 08/11/19 17:40 36.8 C 72 18 91/57 L 97 08/11/19 17:30 73 22 97/69 L 93 08/11/19 17:20 78 20 88/66 L 96 08/11/19 17:10 79 18 100/57 L 99 08/11/19 17:00 36.8 C 84 16 95/80 L 98 08/11/19 15:06 36.9 C 78 22 155/82 H 98
[2019-08-11] MEDS ORDERED: LORazepam 0.5 MG TAB PO PRN (20:11)
[2019-08-11] MEDS: HEPARIN SODIUM/DEXTROSE 25,000 UNITS/500 ML BAG IV SCH (20:24)
[2019-08-11] MEDS ORDERED: ACETAMINOPHEN 325 MG TAB PO STA (20:45)
[2019-08-11 20:46] LABS: INR 1.2 (0.9-1.1); Partial Thromboplastin Ratio 0.9; Partial Thromboplastin Time 23.4 Seconds (21.0-31.0); Prothrombin Time 12.4 Seconds (9.0-12.0)
[2019-08-11 21:05] LABS: Hematocrit (blood only) 33.3 % (37-47); Hemoglobin 10.2 g/dL (12.0-16.0); Mean Corpuscular Hemoglobin 26.4 pg (25-34); RDW Coefficient of Variation 17.4 % (11.5-14.5); Red Blood Count 3.87 M/uL (4.2-5.4); White Blood Count 6.18 K/uL (4.8-10.8)
[2019-08-11 21:14] LABS: Eosinophils # (auto) 0.12 K/uL (0-0.5); Eosinophils % (auto) 1.9 %; Giant Platelets 1+; Immature Granulocytes # (auto) 0.01 K/uL (0.00-0.02); Immature Granulocytes % (auto) 0.2 %; Lymphocytes # (auto) 0.55 K/uL (1.2-3.4); Lymphocytes % (auto) 8.9 %; Mean Corpuscular Hgb Conc 30.6 g/dL (32-36); Monocytes # (auto) 0.17 K/uL (0.11-0.59); Monocytes % (auto) 2.8 %; Neutrophils # (auto) 5.33 K/uL (1.4-6.5); Neutrophils % (auto) 86.2 %; Platelet Count 104 K/uL (130-400); Platelet Estimate Decreased (Normal)
[2019-08-12 03:12] LABS: Partial Thromboplastin Ratio 3.3
[2019-08-12 03:13] LABS: Partial Thromboplastin Time 88.2 Seconds (21.0-31.0)
[2019-08-12] MEDS ORDERED: [UNRECOGNIZED DRUG - REMARK] ONE (06:00)
[2019-08-12] MEDS: PANTOprazole 40 MG TAB PO SCH ×2 (08:10→19:44)
[2019-08-12] MEDS: FLUOXETINE HCL 20 MG CAP PO SCH (08:10)
--- NOTE | 2019-08-12 08:57 | Anesthesiology Consultation ---
Date of Service August 12, 2019 Assessment & Plan (1) Encounter for pre-operative examination: Chart Review Chart Review: Acceptable Risk for Surgery History Surgery Operation Date: 08/11/19 17:00 Proposed Procedures p EGD with Gastric Tube Placement - Kennedy Gutierrez MD Operation Date: 08/12/19 12:40 Proposed Procedures p Esophagogastroduodenoscopy with Peg Tube Placement - Kennedy Gutierrez MD Height/Weight Height: 4 ft 8 in Weight: 66.4 kg Allergies Allergy/AdvReac Type Severity Reaction Status Date / Time hydrocodone Allergy Mild RASH, Verified 08/09/19 19:39 FACIAL/TONGUE SWELLING mold Allergy Mild . Verified 08/09/19 19:39 Penicillins Allergy Mild RASH Verified 08/09/19 19:39 chicken derived Allergy Unknown "MILD" Verified 08/09/19 19:39 azithromycin AdvReac Severe VOMITING Verified 08/09/19 19:39 Medications Home Medications Medication Instructions Recorded Confirmed Last Taken fluoxetine 20 mg PO QAM 10/06/18 08/09/19 08/09/19 warfarin 8 mg PO 5XWK 10/06/18 08/09/19 08/09/19 8 MG warfarin 4 mg PO 2XWK 05/30/19 08/09/19 08/08/19 4 MG acetaminophen 1,000 mg PO Q6H PRN 08/09/19 08/09/19 Unknown melatonin 10 mg PO HS 08/09/19 08/09/19 08/08/19 Active Medications Generic Name Dose Route Start Last Admin Trade Name Freq PRN Reason Stop Dose Admin Diphenhydramine HCl 25 mg 08/11/19 20:39 08/11/19 21:13 Benadryl Capsule PO 09/10/19 20:38 25 mg HS PRN Administration Insomnia Fluoxetine HCl 20 mg 08/11/19 09:00 08/12/19 08:10 Prozac PO 09/10/19 08:59 20 mg QAM JESSY Administration Heparin Sodium/Dextrose 25,000 units in 500 mls @ 0 mls/hr 08/11/19 19:00 08/12/19 06:00 Heparin Sodium/Dextrose IV 09/10/19 18:59 0 units/hr .Q0M JESSY 0 mls/hr Titration Protocol 0 UNITS/HR Pantoprazole Sodium 40 mg 08/10/19 21:00 08/12/19 08:10 Protonix PO 08/14/19 09:01 40 mg BID JESSY Administration NPO Date Last Intake of Fluids: 08/11/19 Time Last Intake of Fluids: 08:00 Date Last Intake of Solids: 08/09/19 Time Last Intake of Solids: 16:00 Past Medical History Medical History Migraine (Chronic) Borderline personality disorder (Chronic) Chronic back pain (Chronic) Anxiety (Chronic) Depression (Chronic) Heterozygous Factor V Leiden mutation (Chronic Unknown) Pulmonary embolism (Chronic 08/15/12) B/L (2010); diagnosed with Factor V Leiden- on warfarin Bulimia nervosa (Chronic 07/11/13) Hiatal hernia with gastroesophageal reflux disease (07/11/13) no current issues Myotonic muscular dystrophy (Chronic) Anemia (Chronic) Double ureter B/L Hyperthyroidism h/o -- no medications needed. Past Family History Family History Other Cancer Hypertension Past Surgical History Surgical History History of blepharoplasty (Chronic) History of tonsillectomy (Chronic) History of adenoidectomy (Chronic) History of esophagogastroduodenoscopy (EGD) (Chronic) History of cholecystectomy (Chronic) History of cystoscopy (Chronic) H/O exploratory laparotomy (Chronic) + OVARIAN CYST REMOVAL; Exploratory lap: 01/15/17: Grade view 1, MAC#3, ETT 7.0 + TAP block at [facility] Hx of lumpectomy (Chronic) RIGHT Social History Smoking Status: Never smoker Hx Alcohol Use: No Alcohol type: wine alcohol intake frequency: holidays/special occasions only Hx Substance Use: No substance use type: does not use Physical Exam Vital Signs Last Vital Signs Temp 37.3 C 08/12/19 07:24 Pulse 64 08/12/19 07:24 Resp 16 08/12/19 07:24 BP 93/59 L 08/12/19 03:35 Pulse Ox 87 L 08/12/19 07:24 Testing Laboratory Results 08/11/19 20:09 08/10/19 07:15 PT 12.4 Seconds (9.0-12.0) H 08/11/19 20:09 INR 1.2 (0.9-1.1) H 08/11/19 20:09 APTT 88.2 Seconds (21.0-31.0) H* 08/12/19 02:24
[2019-08-12] MEDS ORDERED: CLINDAMYCIN 900 MG in DEXTROSE 5% 50 ML IV STA (14:41)
--- NOTE | 2019-08-12 14:57 | History & Physical Bridge Note ---
Date of Service August 12, 2019 History & Physical Bridge Note I have examined the patient, reviewed the History & Physical and in the interval since the performance of the History & Physical I have noted the following changes of clinical significance: no changes noted EGD with PEG today
[2019-08-12] MEDS ORDERED: CLINDAMYCIN 900 MG in DEXTROSE 5% 100 ML IV STA (15:06)
[2019-08-12] MEDS ORDERED: ESMOLOL HCL INJ 10 MG/ML 10ML VIAL IV ONE (16:07)
[2019-08-12] MEDS ORDERED: LIDOCAINE HCL 2% 2 ML VIAL/AMP(20MG/ML) INFIL ONE (16:07)
[2019-08-12] MEDS ORDERED: ePHEDrine sulfate 50 MG/ML SYR ONE (16:07)
[2019-08-12] MEDS ORDERED: PROPOFOL IV EMULSION 10 MG/ML 20 ML VIAL IV ONE (16:07)
--- NOTE | 2019-08-12 16:13 | Operative Report ---
Post Operative Report Pre & Post Diagnosis Operation Date: 08/11/19 17:00 Pre-Op Diagnosis: DYSPHAGIA Post-Op Diagnosis: DYSPHAGIA Operation Date: 08/12/19 12:40 Pre-Op Diagnosis: DYSPHAGIA Post-Op Diagnosis: DYSPHAGIA I identified the patient and participated in the time-out.: Yes Procedure Operation Date: 08/11/19 17:00 Actual Procedures p Esophagogastroduodenoscopy - Kennedy Gutierrez MD Operation Date: 08/12/19 12:40 Actual Procedures p Esophagogastroduodenoscopy with Peg Tube Placement - Kennedy Gutierrez MD Surgeon Kennedy Gutierrez MD Supervisor Plate Pasting None Estimated Blood Loss 0 Findings See Below (PEG tube could not be placed due to lack of a good window with poor transillumination) Specimens none Description of Procedure EGD I attest to the content of the Intraoperative Record and any orders documented therein. Any exceptions are noted below.
[2019-08-12] MEDS ORDERED: ePHEDrine sulfate 50 MG/ML AMP IV PRN (16:42)
[2019-08-12] MEDS ORDERED: ATROPINE SULFATE 0.1 MG/ML 10ML SYR IV PRN (16:42)
[2019-08-12] MEDS ORDERED: ONDANSETRON INJ 2 MG/ML 2 ML VIAL IV PRN (16:42)
--- NOTE | 2019-08-12 16:43 | GI REPORT ---
Patient Name: Sherita Davidson Procedure Date: 08/12/2019 3:41 PM Date of : 1975 Admit Type: Inpatient Age: 43 Gender: Female Attending MD: Kennedy Gutierrez MD Procedure: Upper GI endoscopy Providers: Kennedy Gutierrez MD Referring MD: ELISABET LI Indications: Place PEG due to dysphagia Medicines: General Anesthesia Complications: No immediate complications. Estimated Blood Loss: Estimated blood loss: none. Estimated blood loss: none. Procedure: Pre-Anesthesia Assessment: - Prior to the procedure, a History and Physical was performed, and patient medications, allergies and sensitivities were reviewed. The patient's tolerance of previous anesthesia was reviewed. - The risks and benefits of the procedure and the sedation options and risks were discussed with the patient. All questions were answered and informed consent was obtained. - Patient identification and proposed procedure were verified prior to the procedure by the physician and the nurse. The procedure was verified in the procedure room. - Pre-procedure physical examination revealed no contraindications to sedation. After obtaining informed consent, the endoscope was passed under direct vision. Throughout the procedure, the patient's blood pressure, pulse, and oxygen saturations were monitored continuously. The Scope was introduced through the mouth, and advanced to the second part of duodenum. The upper GI endoscopy was accomplished without difficulty. The patient tolerated the procedure well. Findings: There is a decrease in motility of the esophageal body. The distal esophagus/lower esophageal sphincter is open. The entire examined stomach was normal. The patient was placed in the supine position for PEG placement. The stomach was insufflated to appose gastric and abdominal newton. However, due to inadequate transillumination and inadequate one-to-one localization (i.e. inadequate localization by palpation) PEG was not completed. The needle was passed completely in and yet could not be visualized in the stomach. The duodenal bulb and second portion of the duodenum were normal. Impression: - No visible esophageal motility. - Normal stomach. Due to inadequate transillumination and inadequate one-to-one localization (i.e. inadequate localization by palpation) PEG was not completed. - Normal duodenal bulb and second portion of the duodenum. - No specimens collected. Recommendation: - Return patient to [facility] for [facility] care. - Refer to a surgeon for surgical gastrostomy. Kennedy Gutierrez MD 08/12/2019 4:42:45 PM This report has been signed electronically. Note Initiated On: 08/12/2019 3:41 PM Number of Addenda: 0 I attest to the content of the Intraoperative Record and orders documented therein, exceptions below {[id number]}
--- NOTE | 2019-08-12 17:23 | Anesthesiology Progress Note ---
Date of Service August 12, 2019 Anesthesia Post Procedure Vital Signs Vital Signs: Temp Pulse Pulse Resp BP Pulse Ox 08/12/19 17:06 37.6 C H 75 15 100/63 97 08/12/19 16:55 84 14 91/62 L 95 08/12/19 16:45 85 14 95/48 L 99 08/12/19 16:35 84 14 103/58 L 99 08/12/19 16:29 37.4 C 88 12 111/57 L 96 08/12/19 14:38 37.3 C 79 18 94/76 L 94 08/12/19 11:45 95 08/12/19 07:50 97 08/12/19 07:24 37.3 C 64 16 87 L 08/12/19 03:43 96 08/12/19 03:35 37.2 C 66 16 93/59 L 81 L 08/11/19 23:00 37 C 79 18 101/68 93 08/11/19 21:15 36.6 C 95 H 16 102/62 95 08/11/19 20:15 36.5 C 90 16 95/53 L 94 08/11/19 19:15 36.2 C L 88 16 94/56 L 93 08/11/19 18:45 36.4 C L 96 H 16 93/62 L 93 08/11/19 18:30 36.9 C 88 17 103/68 94 08/11/19 18:15 36.9 C 80 16 101/67 91 08/11/19 17:50 71 19 104/62 94 08/11/19 17:40 36.8 C 72 18 91/57 L 97 08/11/19 17:30 73 22 97/69 L 93 08/11/19 17:20 78 20 88/66 L 96 Transfer of Care Handoff Completed per policy Notes Mental Status: alert / awake / arousable and participated in evaluation Patient Amnestic to Procedure: Yes Nausea / Vomiting: adequately controlled Pain: adequately controlled Airway Patency, RR, SpO2: stable & adequate BP & HR: stable & adequate Hydration State: stable & adequate Anesthetic Complications: see Notes below and Pt Satisfied with anesthetic care Notes: Pt was electively intubated with the glidescope for the case. She was an easy intubation with a grade 1 view and without any evidence of gastric secretions prior to tube placement. At the end of the case, the oropharynx was suctioned with return of scant yellow gastric secretions. When the patient was opening her eyes and responding to commands, the ETT was removed. After removal a coating of yellow gastric secretions were noted on the ETT cuff. The patient was orally suctioned again with return of about 1 cc of gastric secretions. After extubation in the OR and PACU, the patient was breathing comfortably and oxygen saturations were appropriate. She denied SOB, but stated that had some sensation of burning in the back of her throat. I placed an overnight order for continuous pulse oximetry and notified Dr. Gutierrez and Dr. Denise to have a low clinical threshold for possible aspiration. I also spoke with the patient about these findings and answered her questions.
[2019-08-12] MEDS ORDERED: Nursing to Pharmacy Communication ONE (18:16)
[2019-08-12] MEDS: HEPARIN SODIUM/DEXTROSE 25,000 UNITS/500 ML BAG IV SCH (19:39)
--- NOTE | 2019-08-12 19:58 | Hospitalist Progress Note ---
Date of Service August 12, 2019 Assessment & Plan (1) Dysphagia: Present on admission with difficulty to swallow where food stuck in her throat Barium swallow showed normal swallowing function. Esophageal dysmotility/spasm distally as well as of the gastroesophageal junction.. GI on board EGD done showed normal esophagus. Esophagogastroduodenoscopy with Peg Tube Placement failed today since GI could not have a good view to place the tube Case discussed with Gastro plan to repeat upper endoscopy tomorrow in OR under general anesthesia for PEG tube placement. Consult general surgery for peg placement case discussed with Dr. Oliver who plan to place peg on Thursday Continue clear liquid diet case discussed with Anesthesiologist and recommended to monitor her respiratory status closely due to gastric secretion during extubation Continue monitor closely (2) Supratherapeutic INR: (3) Pulmonary embolism: History of pulmonary embolism in the past H/O Factor V Leiden Vit K IV given yesterday for the procedure Continue to hold Coumadin for PEG tube placement Continue heparin drip IV for possible Peg placement on Thursday (4) Myotonic muscular dystrophy: Fall precautions Aspiration precautions as above (5) Anxiety: (6) Depression: (7) Bulimia nervosa: Reports resumed self induced vomiting 6 months ago Continue fluoxetine Will need to follow with psych outpatient DVT Prophylaxis On heparin drip Follows with Dr Tucker for routine care Subjective Pt was seen and examined Lying in bed with no distress She was intubated for peg placement today Peg was not able to place as per GI because GI was not able to see the window to insert the peg Denies any chest pain, palpitation and SOB Physical Exam Physical Exam: General- No acute distress Head- atraumatic Eyes- PERRL, EOMI, ENT- oropharynx clear Neck- supple, no JVD Lungs- clear to auscultation Heart- regular rhythm; no murmur Abdomen- normal bowel sounds, soft, nontender Extremities- no calf tenderness Neuro- alert, oriented x 3; PERRL, EOMI; no facial palsy; no dysarthria Skin- warm & dry Results & Data Vital Signs (Past 12 Hours) Vital Signs Temp Pulse Pulse Resp BP Pulse Ox 08/12/19 19:13 36.7 C 87 17 113/72 91 08/12/19 18:16 36.8 C 82 17 96/61 L 93 08/12/19 17:15 37.5 C 69 18 96/63 L 95 08/12/19 17:06 37.6 C H 75 15 100/63 97 08/12/19 16:55 84 14 91/62 L 95 08/12/19 16:45 85 14 95/48 L 99 08/12/19 16:35 84 14 103/58 L 99 08/12/19 16:29 37.4 C 88 12 111/57 L 96 08/12/19 14:38 37.3 C 79 18 94/76 L 94 08/12/19 11:45 95
[2019-08-13 02:12] LABS: Partial Thromboplastin Ratio 2.2
[2019-08-13 02:24] LABS: Partial Thromboplastin Time 58.6 Seconds (21.0-31.0)
[2019-08-13 06:10] LABS: Mean Corpuscular Hgb Conc 31.6 g/dL (32-36)
[2019-08-13 06:21] LABS: Hematocrit (blood only) 30.1 % (37-47); Hemoglobin 9.5 g/dL (12.0-16.0); Mean Corpuscular Hemoglobin 26.7 pg (25-34); Mean Corpuscular Volume 84.6 fL (80-100); RDW Coefficient of Variation 17.3 % (11.5-14.5); RDW Standard Deviation 53.3 fL (36.4-46.3); Red Blood Count 3.56 M/uL (4.2-5.4); White Blood Count 5.74 K/uL (4.8-10.8)
[2019-08-13 06:30] LABS: Partial Thromboplastin Ratio 2.7
[2019-08-13 06:32] LABS: Mean Platelet Volume 11.7 fL (7.4-10.4); Platelet Count 111 K/uL (130-400); Platelet Estimate Decreased (Normal)
[2019-08-13 06:35] LABS: Partial Thromboplastin Time 72.1 Seconds (21.0-31.0)
[2019-08-13] MEDS: FLUOXETINE HCL 20 MG CAP PO SCH (09:28)
[2019-08-13] MEDS: PANTOprazole 40 MG TAB PO SCH (09:28)
--- NOTE | 2019-08-13 09:37 | Surgery Consultation ---
Date of Consultation August 13, 2019 Assessment & Plan (1) Dysphagia: This is a 43y F with a PMH of muscular dystrophy and h/o PE's and factor V leiden on coumadin who presents to the [facility] with complaints of dysphagia. Patient has been told in the past she may benefit from a feeding tube, however she initially declined. Her symptoms have now become more progressive. During this admission GI attempted a PEG tube x2 without success, therefore surgery consulted for consideration of G tube placement. I have seen and examined the patient with Dr. Oliver who will discuss with our colleagues the possibility of performing an open G tube vs attempt another PEG tube this upcoming Thursday or Thursday. Please make patient NPO at midnight the night prior to surgery. Continue to hold coumadin for now and continue heparin gtt. History of Present Illness Attending Physician: Escobar Denise MD History of Present Illness This is a 43y F with a PMH of myotonic muscular dystrophy and PE and factor V leiden on coumadin who presents to [facility] with dysphagia. Patient states that she has been having difficulty swallowing and feeling like her food gets stuck while eating. GI was consulted during her admission for consideration of a PEG tube to supplement her nutrition. This was attempted twice however both were unsuccessful, due to patient's respiratory status under anesthesia and difficulty finding a window. Patient is currently ordered for a regular diet of which she says she has tolerated thus far. Surgery was consulted for consideration of feeding tube placement. Allergies Allergy/AdvReac Type Severity Reaction Status Date / Time hydrocodone Allergy Mild RASH, Verified 08/09/19 19:39 FACIAL/TONGUE SWELLING mold Allergy Mild . Verified 08/09/19 19:39 Penicillins Allergy Mild RASH Verified 08/09/19 19:39 chicken derived Allergy Unknown "MILD" Verified 08/09/19 19:39 azithromycin AdvReac Severe VOMITING Verified 08/09/19 19:39 Home Medications Home Medications Medication Instructions Recorded Confirmed Type fluoxetine 20 mg PO QAM 10/06/18 08/09/19 History warfarin 8 mg PO 5XWK 10/06/18 08/09/19 History warfarin 4 mg PO 2XWK 05/30/19 08/09/19 History acetaminophen 1,000 mg PO Q6H PRN 08/09/19 08/09/19 History melatonin 10 mg PO HS 11/05/19 11/05/19 History Patient History Medical History Migraine (Chronic) Borderline personality disorder (Chronic) Chronic back pain (Chronic) Anxiety (Chronic) Depression (Chronic) Heterozygous Factor V Leiden mutation (Chronic Unknown) Pulmonary embolism (Chronic 08/15/12) B/L (2010); diagnosed with Factor V Leiden- on warfarin Bulimia nervosa (Chronic 07/11/13) Hiatal hernia with gastroesophageal reflux disease (07/11/13) no current issues Myotonic muscular dystrophy (Chronic) Anemia (Chronic) Double ureter B/L Hyperthyroidism h/o -- no medications needed. 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 Beliefs That Will Affect Care: None marital status: Single Current Living Situation: Spouse current occupational status: unemployed Feels Safe at Home: Yes Safety Concerns: Feels Safe At This Time Smoking Status: Never smoker Second Hand Exposure: No ; Hx Alcohol Use: No Hx Substance Use: No Review of Systems Gastrointestinal: + dysphagia feeling of food getting stuck in her throat Physical Exam Physical Exam: easily arousable and communicative Respiratory: normal respiratory effort Gastrointestinal (Abdomen): Percussion/Palpation: abdomen soft; abdomen nontender Results & Data Vital Signs (Past 12 Hours) Vital Signs Temp Pulse Resp BP Pulse Ox 08/13/19 09:24 36.6 C 107 H 18 95/69 L 91 08/12/19 23:31 36.9 C 62 20 99/65 L 91 PG Care Time/CCT Total # of Minutes Spent Total Time Spent with Patient: Total time spent is greater than 50% in coordination of care (as documented) at patient's floor/unit and/or counseling patient: (1) Dysphagia Dysphagia type: unspecified Qualified Code(s): R13.10 - Dysphagia, unspecified
--- NOTE | 2019-08-13 11:41 | Hospitalist Progress Note ---
Date of Service August 13, 2019 Assessment & Plan (1) Dysphagia: Present on admission with difficulty to swallow where food stuck in her throat Barium swallow showed normal swallowing function. Esophageal dysmotility/spasm distally as well as of the gastroesophageal junction.. GI on board EGD done showed normal esophagus. Esophagogastroduodenoscopy with Peg Tube Placement failed today since GI could not have a good view to place the tube Case discussed with Gastro plan to repeat upper endoscopy tomorrow in OR under general anesthesia for PEG tube placement. Consult general surgery for peg placement Pt does not want to get the Peg placement in these facility. She would like to get it then in [facility] Called [facility] and case discussed with hospitalist Dr. Strange that did not accept the patient since there was no bed Pt does not want to stay to get it done at [facility] by Dr. Benito Oliver was notified and was ok with pt choice Continue clear liquid diet as tolerated Pt and mother said that they would schedule it as an outpatient with [facility] surgical team (2) Supratherapeutic INR: (3) Pulmonary embolism: History of pulmonary embolism in the past H/O Factor V Leiden Vit K IV given yesterday for the procedure Coumadin was on hold for PEG tube placement Pt wants to go home today Heparin drip changed to Lovenox Coumadin resumed today [facility] (4) Myotonic muscular dystrophy: Fall precautions Aspiration precautions as above (5) Anxiety: (6) Depression: (7) Bulimia nervosa: Reports resumed self induced vomiting 6 months ago Continue fluoxetine Will need to follow with psych outpatient DVT Prophylaxis On heparin drip than changed to Lovenox Follows with Dr Tukcer for routine care Subjective Pt was seen and examined. Lying in bed with no distress with her partner and pt's mother at bedside Pt said that she feels fine. She said that she had a good night Pt and mother decide to do the procedure for the Peg placement in [facility] They said that they will be more comfortable since her neurology is in [facility] I called surgery service at [facility] and recommended to transfer under the medicine service When I spoke to the hospitalist Dr. Strange at [facility], he did not accept the patient because since it is not an emergent procedure Dr. Strange said that thy have a waiting list about 14 pts and the will probably take the patient on Thursday. I again spoke to pt and mother about [facility] did not accept her on transfer I explained to them that Dr. Oliver has her schedule for Thursday Pt and mother said that they would rather get it schedule outpatient with [facility] Pt said that she would like to discharge today She was ok to resume her coumadin and lovenox bridge (she said that she did it in the past) Dr. Oliver was notified, and ok for patient to get it done with [facility] surgery Physical Exam Physical Exam: General- No acute distress Head- atraumatic Eyes- PERRL, EOMI, ENT- oropharynx clear Neck- supple, no JVD Lungs- clear to auscultation Heart- regular rhythm; no murmur Abdomen- normal bowel sounds, soft, nontender Extremities- no calf tenderness Neuro- alert, oriented x 3; PERRL, EOMI; no facial palsy; no dysarthria Skin- warm & dry Results & Data Vital Signs (Past 12 Hours) Vital Signs Temp Pulse Resp BP Pulse Ox 08/13/19 09:24 36.6 C 107 H 18 95/69 L 91 08/12/19 23:31 36.9 C 62 20 99/65 L 91
--- NOTE | 2019-08-13 13:02 | Anesthesiology Progress Note ---
Date of Service August 13, 2019 Anesthesia Post Procedure Vital Signs Vital Signs: Temp Pulse Pulse Resp BP Pulse Ox 08/13/19 09:24 36.6 C 107 H 18 95/69 L 91 08/12/19 23:31 36.9 C 62 20 99/65 L 91 08/12/19 20:15 36.7 C 77 17 94/65 L 94 08/12/19 19:13 36.7 C 87 17 113/72 91 08/12/19 18:16 36.8 C 82 17 96/61 L 93 08/12/19 17:15 37.5 C 69 18 96/63 L 95 08/12/19 17:06 37.6 C H 75 15 100/63 97 08/12/19 16:55 84 14 91/62 L 95 08/12/19 16:45 85 14 95/48 L 99 08/12/19 16:35 84 14 103/58 L 99 08/12/19 16:29 37.4 C 88 12 111/57 L 96 08/12/19 14:38 37.3 C 79 18 94/76 L 94 Notes Mental Status: alert / awake / arousable and participated in evaluation Patient Amnestic to Procedure: Yes Nausea / Vomiting: adequately controlled Pain: adequately controlled Airway Patency, RR, SpO2: stable & adequate BP & HR: stable & adequate Hydration State: stable & adequate Anesthetic Complications: no major complications apparent and Pt Satisfied with anesthetic care
[2019-08-13 14:16] LABS: Partial Thromboplastin Ratio 1.5; Partial Thromboplastin Time 40.3 Seconds (21.0-31.0)
[2019-08-13] MEDS ORDERED: HEPARIN IV BOLUS 4,000 UNITS in SYRINGE 0 ML IV ONE (14:21)
[2019-08-13] MEDS: HEPARIN SODIUM/DEXTROSE 25,000 UNITS/500 ML BAG IV SCH (14:24)
[2019-08-13] MEDS ORDERED: ENOXAPARIN 1 MG/KG SC SCH (15:00)
[2019-08-13] MEDS ORDERED: ENOXAPARIN 80 MG/0.8 ML SYR SQ SCH (16:00)
[2019-08-13 16:23] VITALS: BP 102/71; PULSE 93; TEMP 98.2; O2SAT 94
--- NOTE | 2019-08-13 18:16 | Discharge Summary ---
Date of Service August 13, 2019 Admission HPI Per Admitting Provider Pt is 43 y/o F with PMH myotonic muscular dystrophy, PE on Coumadin, Factor V Leiden, bulimia, depression, anxiety presented to ER with c/o progressive dysphagia. Pt states having dysphagia for over one year, initially with solid foods that has become worse. States usually able to tuck her chin and feels like that assists however reports feels like foods sitting in esophagus for several hours. Sometimes vomits after eating. States last week started having trouble swallowing liquids and reports choking. Pt admits to self inducing vomiting three times a day for past 6 months, but states hasn't induced vomiting for past couple of days. Previously had inpatient treatment for bulimia, and has not had any further psychology follow up as she reports "didn't click with the provider". Denies fever/chills, diaphoresis, hematemesis, D/C, LAKHANI, dizziness, syncope, vision changes, neck pain, CP, SOB, orthopnea, palpitations, cough, sore throat, otalgia, rhinorrhea, abdominal pain, paresthesias, weakness, extremity weakness, extremity edema, rashes, urinary symptoms. Admission Exam Per Admitting Provider General: no acute distress, WDWN Head: normocephalic, atraumatic Eyes: PERRL, EOM's intact, conjunctiva non-injected, anicteric ENT: normal inspection external ears, nose, mucous membranes dry Neck: supple, trachea midline, non-tender Lungs: clear, no respiratory distress, no wheezing/rhonchi/rales CV: RRR, no murmur, no pretibial edema Abd: normal BS, soft, non-tender Ext: no cyanosis, no calf tenderness Neuro: A&O x 3, no focal deficits noted, normal affect Skin: warm, dry Principal Diagnosis Dysphagia: Supratherapeutic INR: Pulmonary embolism: Myotonic muscular dystrophy: Anxiety: Depression: Bulimia nervosa: Discharge Exam General- No acute distress Head- atraumatic Eyes- PERRL, EOMI, ENT- oropharynx clear Neck- supple, no JVD Lungs- clear to auscultation Heart- regular rhythm; no murmur Abdomen- normal bowel sounds, soft, nontender Extremities- no calf tenderness Neuro- alert, oriented x 3; PERRL, EOMI; no facial palsy; no dysarthria Skin- warm & dry Discharge Data Allergies Allergy/AdvReac Type Severity Reaction Status Date / Time hydrocodone Allergy Mild RASH, Verified 08/09/19 19:39 FACIAL/TONGUE SWELLING mold Allergy Mild . Verified 08/09/19 19:39 Penicillins Allergy Mild RASH Verified 08/09/19 19:39 chicken derived Allergy Unknown "MILD" Verified 08/09/19 19:39 azithromycin AdvReac Severe VOMITING Verified 08/09/19 19:39 Consultations 08/09/19 20:34 ED Decision to Admit Stat 08/09/19 22:31 Consult Case Management - Discharge Planning Routine 08/10/19 08:00 Consult Gastroenterology Routine 08/12/19 16:28 Consult General Surgery Routine Procedures Performed Operation Date: 08/11/19 17:00 Actual Procedures p Esophagogastroduodenoscopy - Kennedy Gutierrez MD Operation Date: 08/12/19 12:40 Actual Procedures p Esophagogastroduodenoscopy - Kennedy Gutierrez MD Ordered Studies 08/10/19 11:00 FL barium swallow Routine FL barium swallow CLINICAL HISTORY: s/s of esophageal dysfunction COMPARISON STUDY: None FLUOROSCOPY TIME: 1.1 minutes NUMBER OF FLUOROSCOPIC IMAGES: 27 FINDINGS: The patient initiates swallowing function well. Esophagus is normal in course and caliber. There are findings of moderate esophageal spasm at the gastroesophageal junction. There are findings of mild gastroesophageal reflux. Patient ingested the barium tablet easily which passed normally into the stomach. IMPRESSION: 1. Normal swallowing function. 2. Esophageal dysmotility/spasm distally as well as of the gastroesophageal junction.. 3. Mild gastroesophageal reflux. The above report was generated using voice recognition software. It may contain grammatical, syntax or spelling errors. Electronically signed by: Casper Bray M.D. 08/10/2019 11:09 AM Dictated: 08/10/19 1103 Transcribed: 08/10/19 1103 SINGLE VIEW CHEST CLINICAL HISTORY: Dysphagia. FINDINGS: An AP, portable, upright chest radiograph is compared to chest x-ray and chest CT dated 10/28/2017. The cardiomediastinal silhouette is unremarkable. There is mild elevation of right hemidiaphragm. The lungs and pleural spaces are clear. No pneumothorax is seen. The bony thorax is grossly intact. Cholecystectomy clips are noted in the right upper quadrant. IMPRESSION: No active disease in the chest. Electronically signed by: Alex Venegas M.D. 08/09/2019 7:43 PM Dictated: 08/09/191941 Transcribed: 08/09/191941 Hospital Course (1) Dysphagia: Present on admission with difficulty to swallow where food stuck in her throat Barium swallow showed normal swallowing function. Esophageal dysmotility/spasm distally as well as of the gastroesophageal junction.. GI on board EGD done showed normal esophagus. Esophagogastroduodenoscopy with Peg Tube Placement failed today since GI could not have a good view to place the tube Case discussed with Gastro plan to repeat upper endoscopy tomorrow in OR under general anesthesia for PEG tube placement. Consult general surgery for peg placement Pt does not want to get the Peg placement in these facility. She would like to get it then in [facility] Called [facility] and case discussed with hospitalist Dr. Strange that did not accept the patient since there was no bed Pt does not want to stay to get it done at [facility] by Dr. Benito Oliver was notified and was ok with pt choice Continue clear liquid diet as tolerated Pt and mother said that they would schedule it as an outpatient with [facility] surgical team (2) Supratherapeutic INR: (3) Pulmonary embolism: History of pulmonary embolism in the past H/O Factor V Leiden Vit K IV given yesterday for the procedure Coumadin was on hold for PEG tube placement Pt wants to go home today Heparin drip changed to Lovenox Coumadin resumed today Follow up with the coag clinic (4) Myotonic muscular dystrophy: Fall precautions Aspiration precautions as above (5) Anxiety: (6) Depression: (7) Bulimia nervosa: Reports resumed self induced vomiting 6 months ago Continue fluoxetine Will need to follow with psych outpatient DVT Prophylaxis On heparin drip than changed to Lovenox Follows with Dr Tucker for routine care Total Time Total Time Spent Total Time Spent (In Minutes): 35 minutes Total Time Includes: Examination of the Patient, Discharge Planning, Medication Reconciliation, Communication With Other Providers and Other Discharge Plan Discharge Items Patient Disposition: Home - Self-Care Reason For Visit: DYSPHAGIA Discharge Diagnosis: Dysphagia: Supratherapeutic INR: Pulmonary embolism: Myotonic muscular dystrophy: Anxiety: Depression: Bulimia nervosa: Activity: Resume your previous activity Activity Comment: as tolerated Non-emergency contact: Primary Care Provider and Surgeon Call non-emergency contact if: you have any medication questions Follow-up/Referrals: Paul Tucker MD [Primary Care Provider] - Diet: Full liquid and Clear liquid Addtl Attending Provider Instructions: Mrs Davidson would like to go to [facility] to get the PEG tube placement rather than to get it done at [facility]. No bed available at [facility] since there is a waiting list of 14 patients. She would like to discharge home today. She said that she would arrange with surgery for outpatient peg placement She agreed to take Lovenox brigde with coumadin until INR at goal Follow up with your primary care provider Dr. Tucker on 08/18 @ 11:00 Please call [facility] surgery to schedule for Peg Placement Follow up with the coumadin clinic (Monitor PT/INR) Aspiration precaution Medication Instructions: Coumadin Warfarin is a medicine prescribed to prevent blood clots Warfarin will thin your blood and help prevent new clots Take your medications exactly as directed Never skip a dose. Never take a double dose. If you miss a dose, take it as soon as you remember It is important for your doctor to monitor your prothrombin time (PT). This is a lab test Keep your appointment for lab tests Risk of Adverse Drug Reactions and Interactions: Warfarin increases your risk of bleeding The food you eat and other medications you take can affect how Warfarin works in your body Ask your doctor about daily aspirin therapy It is very important to talk with your doctor about all of the other medicines, antibiotics, vitamins or herbal products that you are taking All of your medication must be approved by your doctor, including new medicines, as well as medicines you have taken before you started taking Warfarin Avoid NSAIDs (Motrin, Aleve, Naproxen, Ibuprofen, Advil, Meloxicam,..) due to risks of bleeding Diet: In order for Warfarin to work properly, it is important to keep your intake of Vitamin K as consistent as possible You should avoid any sudden change in Vitamin K intake Report any significant changes in your diet or weight to your doctor Call your Primary Care doctor if you experience any of the following: Swelling or Pain in your leg Sudden, continuous pain deep in a muscle Pain that worsens when you are active or when you stand still for a long time Chest Pain Sudden Shortness of Breath Rapid or pounding heart beat Fainting Dizziness Cough with blood or bloody sputum Sweating more than normal Bruises Heavy or uncontrolled bleeding Blood in your urine, stool or vomit Black or tarry stools Caring for Your Self at Home: Avoid sitting, standing or lying down for long periods without moving your legs and feet When traveling by car, stop to get out and move around at least once every 3 hours On long airplane, train or bus rides, get up and move around when possible If you can't get up, wiggle your toes and tighten your calves to keep your blood moving Follow Up: It is important for you to keep your follow up appointments with your medical provider. Pending Studies at Discharge: No Stand-Alone Forms: [facility], Smoking Cessation Medications and DC Order Prescriptions: New pantoprazole 40 mg Tablet,Delayed Release (Dr/Ec) 40 mg PO BID 30 Days Qty: 60 RF: 0 enoxaparin [Lovenox] 80 mg/0.8 mL Syringe 70 mg subcut Q12 5 Days Qty: 7 RF: 0 Continued warfarin 4 mg Tablet 4 mg PO 2XWK RF: 0 acetaminophen 500 mg Tablet 1,000 mg PO Q6H PRN (Reason: Pain) RF: 0 melatonin 5 mg Tablet,Chewable 10 mg PO HS RF: 0 warfarin 4 mg tablet 8 mg PO 5XWK RF: 0 fluoxetine 20 mg capsule 20 mg PO QAM RF: 0 Discharge Orders: Discharge Order (Routine); Ordered 08/13/19 Ordered By: Escobar Ford/Other Patient Handouts: Feeding Tube PEG, Dysphagia Diet Admission Data Admit Date/Time: 08/09/19 21:24 Attending Provider: Escobar Denise Admit Provider: Jersey Byers Primary Care Provider: Paul Tucker Other Providers: Jersey Byers ; [place] ; Troy Kennedy ; Kennedy Gutierrez ; Haroon Oliver Other Interventions: Discharge Summary Assessment (RN) Last Done: 08/13/19 16:15
[2019-08-13] MEDS ORDERED: WARFARIN SOD 4 MG TAB PO ONE (18:30)
== END 2019-08-13 17:00 | disposition home or self-care (01) | DRG 392 ==
LOC: ED 17:58 → 3N 21:24 → SUATTDRO 21:24 → 3N 21:51

== ENCOUNTER 2020-05-18 08:12 | Observation (INO) ==
--- NOTE | 2020-05-07 15:26 | PAT Medication Instructions ---
Medication Instructions Date of Service May 07, 2020 Home Medications fluoxetine 20 mg PO QAM warfarin 4 mg PO QAM acetaminophen 1,000 mg PO Q6H PRN amitriptyline 25 mg PO HS pantoprazole 20 mg PO BID melatonin 10 mg PO HS albuterol sulfate 1 inh INHALATION QID PRN prednisone 10 mg PO UD Continue as directed prednisone 10 mg PO UD ASK your prescriber and surgeon warfarin 4 mg PO QAM Take morning of surgery With a small sip of water, OTHERWISE NOTHING TO EAT OR DRINK AFTER MIDNIGHT: fluoxetine 20 mg PO QAM acetaminophen 1,000 mg PO Q6H PRN (okay to take up to 4 hours prior to surgery if needed) pantoprazole 20 mg PO BID albuterol sulfate 1 inh INHALATION QID PRN (use if needed; please bring with you to hospital day of surgery if possible) Take evening before surgery albuterol sulfate 1 inh INHALATION QID PRN (if needed) acetaminophen 1,000 mg PO Q6H PRN (if needed) amitriptyline 25 mg PO HS pantoprazole 20 mg PO BID melatonin 10 mg PO HS Other Notes If you have any questions please call us at [phone] or [phone] or [phone] or [phone]
--- NOTE | 2020-05-09 12:43 | Anesthesiology Consultation ---
Date of Service May 09, 2020 Assessment & Plan (1) Encounter for pre-operative examination: COVID Status: As of 05/09 assessment, patient denies travel to endemic area, known exposure/sick contacts, or symptoms of COVID19. Patient instructed that they and their household members must follow strict social distancing guidelines, wear a mask in public and avoid travel for 14 days prior to surgery. Preoperative COVID19 testing to be completed prior to surgery per surgeon's arrangements. Patient made aware to self-isolate as much as possible between COVID testing and surgery. 06/17/19 D+C Hysteroscopy -- patient had reported that she had required emergent intubation in the past during a MAC sedation surgery for ptosis. She was therefore instructed to be NPO for 12 hours prior to procedure. No issues noted in anesthesia record, general anesthesia, DL x 1, grade view I. 08/11/19 EGD/PEG tube placement -- Per Dr. Rivero, "The procedure was aborted about ten minutes after it started due to intolerance to narcotics secondary to her myotonic dystrophy. She had been given 100 mcg of fentanyl and little bumps of propofol. Her 02 sat dropped into the high 80s and she was bagged for awhile and the procedure resumed.When her 02 sat dropped a second time into the 80s she was given narcan 0.2 and she came right back breathing spontaneously and waking up quickly. Her sats came up to 97 and stayed there. We took her to the main PACU where she could be watched for a longer period time. within a half hour she was wide awake and carrying on a conversation with the nurse." 08/12/19 EGD/PEG then done with general anesthesia. Per Dr. Gallo, "Pt was electively intubated with the glidescope for the case. She was an easy intubation with a grade 1 view and without any evidence of gastric secretions prior to tube placement. At the end of the case, the oropharynx was suctioned with return of scant yellow gastric secretions. When the patient was opening her eyes and responding to commands, the ETT was removed. After removal a coating of yellow gastric secretions were noted on the ETT cuff. The patient was orally suctioned again with return of about 1 cc of gastric secretions. After extubation in the OR and PACU, the patient was breathing comfortably and oxygen saturations were appropriate. She denied SOB, but stated that had some sensation of burning in the back of her throat. I placed an overnight order for continuous pulse oximetry and notified Dr. Gutierrez and Dr. Denise to have a low clinical threshold for possible aspiration." GIVEN SUCCESS OF 06/2019 D+C, PT WAS ADVISED TO HOLD FOOD AND DRINK FOR 12 HOURS PRIOR TO SURGERY. Chart Review Chart Review: Acceptable Risk for Surgery and Patient seen in Pre Admission Testing Teaching & Discussion Instructed NPO after midnight before surgery, except medications with 15 cc of water. Medication instructions provided according to the PAT guidelines. History Surgery Operation Date: 05/18/20 09:40 Proposed Procedures p Diagnostic Laparoscopy, Left Salping-Oophorectomy - Janie Murphy Height/Weight Height: 4 ft 8 in Weight: 64.41 kg Allergies Allergy/AdvReac Type Severity Reaction Status Date / Time chicken derived Allergy Mild Unknown Verified 05/02/20 13:11 hydrocodone Allergy Mild RASH, Verified 05/02/20 13:11 FACIAL/TONGUE SWELLING mold Allergy Mild Unknown Verified 05/02/20 13:11 Penicillins Allergy Mild Rash Verified 05/02/20 13:11 azithromycin AdvReac Severe VOMITING Verified 05/02/20 13:11 Medications Home Medications Medication Instructions Recorded Confirmed Last Taken fluoxetine 20 mg PO QAM 10/06/18 05/02/20 08/09/19 warfarin 4 mg PO QAM 05/30/19 05/02/20 08/08/19 4 MG acetaminophen 1,000 mg PO Q6H PRN 08/09/19 05/02/20 Unknown amitriptyline 25 mg PO HS 09/15/19 05/02/20 Unknown pantoprazole 20 mg PO BID 09/15/19 05/02/20 Unknown melatonin 10 mg PO HS 04/26/20 05/02/20 Unknown albuterol sulfate 1 inh INHALATION QID PRN 05/02/20 05/02/20 Unknown prednisone 10 mg PO UD 05/02/20 05/02/20 Unknown Past Medical History Medical History Anemia (Chronic) Anxiety (Chronic) Borderline personality disorder (Chronic) Bulimia nervosa (Chronic 07/11/13) Chronic back pain (Chronic) Clinical depression 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 Factor V Leiden mutation (Chronic Unknown) Hiatal hernia with gastroesophageal reflux disease (07/11/13) no current issues Migraine (Chronic) Myotonic muscular dystrophy (Chronic) Ovarian cyst Pulmonary embolism (Chronic 08/15/12) B/L (2010); diagnosed with Factor V Leiden- on warfarin Viral respiratory illness recent ER visit [place] -- COVID negative -- pt w/ malaise, dry cough, sob (no fever) -- prescribed steroid, inh Exercise / Class Metabolic Activity II 4-5 Yardwork/Stairs/Walk up hill (Some mild VICTORIA with 1 FOS but does three flights of stairs at home daily) Past Surgical History Surgical History H/O exploratory laparotomy (Chronic) + OVARIAN CYST REMOVAL; Exploratory lap: 01/15/17: Grade view 1, MAC#3, ETT 7.0 + TAP block at [facility] History of adenoidectomy (Chronic) History of blepharoplasty (Chronic) x2 History of cataract surgery History of cholecystectomy (Chronic) History of cystoscopy (Chronic) History of esophagogastroduodenoscopy (EGD) (Chronic) History of tonsillectomy (Chronic) Hx of lumpectomy (Chronic) RIGHT Slow to wake up after anesthesia Past Anesthesia History No Family Hx of Anesthesia Complications (father and grandfather 2/2 myotonic dystrophy) and Other 06/17/19 D+C Hysteroscopy -- patient had reported that she had required emergent intubation in the past during a MAC sedation surgery for ptosis. She was therefore instructed to be NPO for 12 hours prior to procedure. No issues noted in anesthesia record, general anesthesia, DL x 1, grade view I. 08/11/19 EGD/PEG tube placement -- Per Dr. Rivero, "The procedure was aborted about ten minutes after it started due to intolerance to narcotics secondary to her myotonic dystrophy. She had been given 100 mcg of fentanyl and little bumps of propofol. Her 02 sat dropped into the high 80s and she was bagged for awhile and the procedure resumed.When her 02 sat dropped a second time into the 80s she was given narcan 0.2 and she came right back breathing spontaneously and waking up quickly. Her sats came up to 97 and stayed there. We took her to the main PACU where she could be watched for a longer period time. within a half hour she was wide awake and carrying on a conversation with the nurse." 08/12/19 EGD/PEG then done with general anesthesia. Per Dr. Gallo, "Pt was electively intubated with the glidescope for the case. She was an easy intubation with a grade 1 view and without any evidence of gastric secretions prior to tube placement. At the end of the case, the oropharynx was suctioned with return of scant yellow gastric secretions. When the patient was opening her eyes and responding to commands, the ETT was removed. After removal a coating of yellow gastric secretions were noted on the ETT cuff. The patient was orally suctioned again with return of about 1 cc of gastric secretions. After extubation in the OR and PACU, the patient was breathing comfortably and oxygen saturations were appropriate. She denied SOB, but stated that had some sensation of burning in the back of her throat. I placed an overnight order for continuous pulse oximetry and notified Dr. Gutierrez and Dr. Denise to have a low clinical threshold for possible aspiration." History of PONV No Hx of PONV and No Hx of Motion Sickness Social History Smoking Status: Never smoker Do You Dip or Chew Tobacco: No Hx Alcohol Use: Yes Alcohol type: wine alcohol intake frequency: holidays/special occasions only (very rare) Hx Substance Use: No substance use type: does not use Review of Systems Pt denies any recent chest pain, shortness of breath, palpitations, fever, or uncontrolled acid reflux. Recently treated for viral URI (COVID was negative) at [facility] ED. Feels mostly resolved, mild residual cough/fatigue. Physical Exam Vital Signs BP: 123/69 P: 61bpm SPO2: 98% RA T: 98.1 F R: 16 ENMT Mouth: + small oral opening; no dental restorations, no chipped teeth and no loose teeth Thyromental Distance: < 3.5 Finger Breadths (3) Mallampati Class: II Neck normal visual inspection; neck extension not limited Respiratory normal respiratory effort Auscultation: lungs clear to auscultation bilaterally Cardiovascular Rate/Rhythm: regular rate and regular rhythm Heart Sounds: no murmur Extremities: no edema Testing Laboratory Results 04/26/20 WBC: 4.16 H/H: 11.1/36.5 PLATELETS: 127 SODIUM: 143 CHLORIDE: 113 (K+ not reported due to hemolysis) CO2: 27 BUN: 10 CREATININE: 0.90 GLUCOSE: 99 PT: 17.2 PTT: 22.9 INR: 1.7 Electrocardiogram Date: 04/26/20 Findings: + NSR @ (66bpm) Low voltage QRS. NSTWA. Chest X-Ray Date: 04/26/20 IMPRESSION: 1. No evidence of pulmonary thromboembolic disease. 2. Trace pleural effusions with mild bibasilar predominant atelectasis. 3. No airspace consolidation typical for pneumonia. 4. Cholecystectomy.
[~2020-05-18 08:12] MED LIST changes: -CMD4 PO; +DEXAMETHASONE SOD INJ 4 MG/ML VIAL ONE; -FLUO20CA34 PO; +GLYCOPYRROLATE 0.2 MG/ML VIAL ONE; +LACTATED RINGER'S 1,000 ML IV SCH; -LIDOCAINE HCL 2% 2 ML VIAL (20MG/ML) ONE; +LIDOCAINE HCL 2% 2 ML VIAL/AMP(20MG/ML) INFIL ONE; +LR 60ML/HR IV SCH; -MELA1TAB48 PO; +MIDAZOLAM HCL 1 MG/ML 2ML VIAL ONE; +NEOSTIGMINE METHYLSULFATE 5 MG/5 ML SYR ONE; +ONDANSETRON INJ 2 MG/ML 2 ML VIAL ONE; -SODIUM CHLORIDE 0.9% 500ML 500 ML IV ONE; +fentaNYL citrate 100 MCG/2 ML VIAL ONE
--- NOTE | 2020-05-18 08:52 | History & Physical Bridge Note ---
Date of Service May 18, 2020 History & Physical Bridge Note I have examined the patient, reviewed the History & Physical and in the interval since the performance of the History & Physical I have noted the following changes of clinical significance: H&P addendum to include diagnostic laparoscopy, left oophorectomy (left fallopian tube previously removed) and right salpingectomy. Informed consent obtained.
[2020-05-18] MEDS ORDERED: DEXAMETHASONE SOD INJ 4 MG/ML VIAL ONE (08:58)
[2020-05-18] MEDS ORDERED: GLYCOPYRROLATE 0.2 MG/ML VIAL ONE (08:58)
[2020-05-18] MEDS ORDERED: NEOSTIGMINE METHYLSULFATE 5 MG/5 ML SYR ONE (08:58)
[2020-05-18] MEDS ORDERED: ONDANSETRON INJ 2 MG/ML 2 ML VIAL ONE (08:58)
[2020-05-18] MEDS ORDERED: BUPIVACAINE 0.5 % 5 MG/1 ML MPF 30ML VIAL ONE (08:58)
[2020-05-18] MEDS ORDERED: fentaNYL citrate 100 MCG/2 ML VIAL ONE (08:58)
[2020-05-18] MEDS ORDERED: PROPOFOL IV EMULSION 10 MG/ML 20 ML VIAL IV ONE (08:58)
[2020-05-18] MEDS ORDERED: LIDOCAINE HCL 2% 2 ML VIAL/AMP(20MG/ML) INFIL ONE (08:58)
[2020-05-18] MEDS ORDERED: MIDAZOLAM HCL 1 MG/ML 2ML VIAL ONE (08:58)
[2020-05-18 09:09] LABS: Partial Thromboplastin Ratio 0.9; Partial Thromboplastin Time 24.8 Seconds (21.0-31.0); Prothrombin Time 10.5 Seconds (9.0-12.0)
[2020-05-18] MEDS ORDERED: SUGAMMADEX SODIUM 200 MG/2 ML VIAL IV ONE (09:15)
[2020-05-18] MEDS ORDERED: ALBUTEROL HFA INHALER 8.5 GM ONE (10:29)
[2020-05-18] MEDS ORDERED: fentaNYL citrate 100 MCG/2 ML VIAL IV PRN (10:43)
[2020-05-18] MEDS ORDERED: ONDANSETRON INJ 2 MG/ML 2 ML VIAL IV PRN ×2 (10:43→12:30)
[2020-05-18] MEDS ORDERED: ATROPINE SULFATE 0.1 MG/ML 10ML SYR IV PRN (10:43)
[2020-05-18] MEDS ORDERED: ePHEDrine sulfate 50 MG/ML AMP IV PRN (10:43)
[2020-05-18] MEDS ORDERED: BUPIVACAINE 0.5 % 5 MG/1 ML MPF 30ML VIAL INFIL ONE (10:44)
[2020-05-18] MEDS ORDERED: FLOSEAL HEMOSTATIC MATRIX 5ML TOP ONE (10:46)
--- NOTE | 2020-05-18 10:58 | Post Operative Brief Note ---
Immediate Post Op Note v1 Date of Surgery May 18, 2020 Pre & Post Diagnosis Operation Date: 05/18/20 09:40 Pre-Op Diagnosis: Pelvic Pain, Bilateral Ovarian Cysts Post-Op Diagnosis: Pelvic Pain, Bilateral Ovarian Cysts I identified the patient and participated in the time-out.: Yes Procedure Operation Date: 05/18/20 09:40 Actual Procedures p Diagnostic Laparoscopy, Left Oophorectomy, Right Salpingectomy - Janie Mruphy Surgeon Janie Murphy Contact Lens Blocker Mel Pugh PA-C Estimated Blood Loss 5 Findings Consistent with Post-Op Diagnosis Drains Chavez Catheter (16f chavez catheter inserted at start of procedure by Chucky Pugh PA-C without difficulty)
--- NOTE | 2020-05-18 11:13 | Operative Report ---
Post Operative Report Pre & Post Diagnosis Operation Date: 05/18/20 09:40 Pre-Op Diagnosis: Pelvic Pain, Bilateral Ovarian Cysts Post-Op Diagnosis: Pelvic Pain, Bilateral Ovarian Cysts I identified the patient and participated in the time-out.: Yes Procedure Operation Date: 05/18/20 09:40 Actual Procedures p Diagnostic Laparoscopy, Left Oophorectomy, Right Salpingectomy - Janie Murphy Surgeon Janie Murphy Guidance Consultant Mel Pugh PA-C Estimated Blood Loss 5 Findings See Below 1. Small anteverted uterus 2. Left fallopian tube was surgically absent 3. 3-4 cm left endometrioma 4. Bowel and omentum was adhered to the left ovary 5. Normal appearing right fallopian tube and ovary 6. Anterior and posterior cul-de-sac without lesions and free of disease Fluids See Anesthesia Report Specimens Right fallopian tube Left ovary Drains Chavez catheter: 200 ml. Plan for removal Anesthesia Type General Complications none Indications 44 yo with pelvic pain and bilateral ovarian cysts desiring surgical management via diagnostic laparoscopy, left oophorectomy, and right salpingectomy. Description of Procedure Under GA in the dorsal lithotomy position, the patient was prepped and draped in the usual sterile fashion. Beginning at the vagina, a chavez catheter was inserted under sterile conditions and left in situ for the remainder of the case. A weighted speculum was then placed in the vagina and with the help of a right angle retractor the cervix was visualized and grasped anteriorly with a single tooth tenaculum. An acorn uterine manipulator was placed without difficulty. The weighted speculum was then removed. Attention was then turned to the abdomen. 0.5% marcaine solution was used for infiltration of all port sites. Beginning in the subumbilical area, the skin was first infiltrated with ~ 2 cc of the marcaine solution, then a 5 mm incision was made through the skin with a #11 blade. Direct entry with a 5 mm trocar, sleeve, and laparoscope was made into the peritoneal cavity. The opening pressure was < 8 mmHg. The peritoneal cavity was insufflated with CO2 gas to a maximum pressure of 20 mmHg. Examination of the peritoneal cavity revealed no signs of injury from entry and the above noted structures. The patient was then placed in steep Trendelenburg and three more 5 mm trocars were placed, one on the right and two on the left, in the standard technique, taking care to avoid the epigastric vessels. All trocars were placed under direct visualization with no inadvertent damage to underlying structures. The uterus was upheld from below and revealed a normal uterus, surgical absent left fallopian tube, 3-4 cm left endometrioma, and normal appearing right fallopian tube and ovary. Beginning on the left side, the bowel and omentum was removed from the left ovary via blunt dissection. Hemostasis was noted. The left Infundibular ligament was identified by lifting the ovary towards the anterior wall of the abdomen. The ureter was confirmed along the pelvic side wall and peristalsis was noted. The HORACIO Harmonic device was then used to clamp and ligate the IP ligament in three sequential bites with ligation. The IP was then cut mid-distance, again being sure to be clear of the ureter. As the ovary was being removed, the cyst ruptured with the release of a chocolate appearing fluid. The pelvis was suctioned and the ovary was placed in the posterior cul-de-sac. Hemostasis was noted. Attention was then turned to the right side and working distally along the length of the fallopian tube, the mesosalpinx was exposed by lifting the tube up towards the anterior abdominal wall. The mesosalpinx was then sequentially, clamped, ligated, and cut using the HORACIO Harmonic working alongside the length of the tube and towards the cornua. Once the level of the cornua was reached the tube was ligated and cut. Hemostasis was noted. A 5 mm endocatch bag was then introduced into the pelvic cavity and the left ovary and right fallopian tube were placed into the bag and removed from the pelvic cavity without difficulty. The pelvis was then copiously irrigated and suctioned. Floseal was then placed along the adnexal regions. Hemostasis was again appreciated. All trocars were removed under direct laparoscopic visualization. All the incision sites were then closed with 4-0 monocryl sutures in a subcuticular fashion and dermabond. Attention was turned to the vagina and the uterine manipulator was removed. Hemostasis was appreciated. The chavez catheter was left in situ. At the end of the procedure, all sponges, instruments, and sharps were counted and correct. The Estimated blood loss was 5 ml. The patient was taken to recovery in stable condition. My Guidance Consultant was necessary throughout the procedure for uterine manipulation, retraction, handling of the laparoscope and laparoscopic instruments to ensure adequate visualization, gentle tissue manipulation, and hemostasis. I attest to the content of the Intraoperative Record and any orders documented therein. Any exceptions are noted below.
[2020-05-18] MEDS ORDERED: ALBUTEROL HFA 8 GM INHALER INH PRN (12:30)
[2020-05-18] MEDS: KETOROLAC TROMETHAMINE 15 MG/ML VIAL IV PRN (13:12)
[2020-05-18] MEDS: ACETAMINOPHEN 500 MG TAB PO SCH ×2 (14:54→21:30)
[2020-05-18] MEDS: SIMETHICONE 80 MG CHEW PO SCH ×2 (14:54→18:29)
--- NOTE | 2020-05-18 16:00 | Anesthesiology Progress Note ---
Date of Service May 18, 2020 Anesthesia Post Procedure Vital Signs Vital Signs: Temp Pulse Pulse Resp BP Pulse Ox 05/18/20 15:33 36.7 C 89 18 102/67 92 05/18/20 14:35 36.5 C 75 16 91/62 L 91 05/18/20 13:47 36.9 C 71 18 106/72 98 05/18/20 13:01 36.1 C L 75 16 108/56 L 96 05/18/20 12:32 36.3 C L 60 16 100/62 95 05/18/20 12:10 36.4 C L 61 15 116/57 L 99 05/18/20 12:00 64 15 115/74 99 05/18/20 11:50 62 15 105/71 97 05/18/20 11:40 66 15 110/62 95 05/18/20 11:30 67 15 118/66 95 05/18/20 11:20 71 15 115/73 98 05/18/20 11:10 72 16 115/71 95 05/18/20 11:07 36.4 C L 84 15 119/58 L 90 05/18/20 09:09 37.1 C 69 18 101/85 94 Pain Intensity Throat: Pain Intensity: 6 Transfer of Care Handoff Completed per policy Notes Mental Status: alert / awake / arousable and participated in evaluation Patient Amnestic to Procedure: Yes Nausea / Vomiting: adequately controlled Pain: adequately controlled Airway Patency, RR, SpO2: stable & adequate BP & HR: stable & adequate Hydration State: stable & adequate Anesthetic Complications: no major complications apparent and Pt Satisfied with anesthetic care
[2020-05-18] MEDS ORDERED: AMITRIPTYLINE HCL 25 MG TAB PO SCH (21:00)
[2020-05-18] MEDS ORDERED: MELATONIN 3 MG TAB PO SCH (21:00)
[2020-05-18] MEDS: DOCUSATE SODIUM 100 MG CAP PO SCH (21:28)
[2020-05-18] MEDS: PANTOprazole 40 MG TAB PO SCH (21:29)
[2020-05-18 23:39] VITALS: TEMP 97.9
[2020-05-19] MEDS: SIMETHICONE 80 MG CHEW PO SCH ×2 (00:18→05:49)
[2020-05-19] MEDS: ACETAMINOPHEN 500 MG TAB PO SCH (05:49)
[2020-05-19 07:26] VITALS: BP 120/75; O2SAT 99
--- NOTE | 2020-05-19 08:39 | Gynecologic Progress Note ---
Date of Service May 19, 2020 Assessment & Plan (1) Ovarian cyst: s/p Diagnostic laparoscopy, left oophorectomy, and right salpingectomy on 05/18/2020. Patient meeting all discharge criteria. Discharge home with instructions. Post-operative medications previously prescribed. Present on Admission?: Yes (2) Pelvic pain: Present on Admission?: Yes Admission and Anticipated Discharge Date Admission Date: May 18, 2020 Anticipated date of discharge: 05/19/20 Subjective POD#1. s/p Diagnostic laparoscopy, left oophorectomy, and right salpingectomy. Patient with no complaints. Pain controlled with oral medications. Tolerating regular diet. Urinating and ambulating without difficulty. Review of Systems Review of Systems: All systems reviewed & are unremarkable except as noted in HPI & below Physical Exam Constitutional: WD/WN, vitals as above Respiratory: normal respiratory effort, lungs clear to auscultation Cardiovascular: RRR, no murmur, no edema Gastrointestinal (Abdomen): Inspection/Auscultation: abdomen normal to inspection and normal bowel sounds Appropriately tender to palpation. Incisions: C/D/I. No erythema or edema. Results & Data ([facility]) Vital Signs (Past 12 Hours) Vital Signs Temp Pulse Pulse Resp BP Pulse Ox Pulse Ox 05/19/20 07:25 36.6 C 61 14 120/75 99 05/19/20 02:36 36.6 C 60 16 93/60 L 94 05/19/20 00:29 94 05/18/20 23:38 36.6 C 64 16 95/62 L 94 (1) Ovarian cyst Laterality: bilateral Qualified Code(s): N83.201 - Unspecified ovarian cyst, right side; N83.202 - Unspecified ovarian cyst, left side
[2020-05-19] MEDS: DOCUSATE SODIUM 100 MG CAP PO SCH ×2 (08:40→08:42)
[2020-05-19] MEDS: PANTOprazole 40 MG TAB PO SCH (08:41)
--- NOTE | 2020-05-19 08:46 | Discharge Summary ---
Date of Service May 19, 2020 Admission HPI Per Admitting Provider 44 year [id number] using abstinence for contraception presents with pelvic pain. Patient had a previous telemedicine encounter on 02/10/2020 to discuss imaging results. [facility] with c/o pelvic pain. Patient with h/o ovarian cysts and desired a repeat pelvic ultrasound to assess her cysts. Repeat imaging revealed1. A 14 x 13 x 16 mm hyperechoic focus in the left ovary, questionable decrease in size versus technical differences. Ovarian dermoid is a consideration. Consider surveillance ultrasound in 3-6 months. 2. A 13 mm exophytic right ovarian follicle versus para ovarian cyst. Patientwasconcerned if she neededboth ovaries removed which would lead to hormone replacement therapy. H/o left ovarian cystectomy and left salpingectomy in 2017.At that time, I recommendedrepeat imaging in 3-6 months. Surgery was notrecommended. Do not recommend removal of both ovaries if no pain or oncologic cause at thattime. If ovaries remain in place, hormone replacement therapy not warranted. Patient followed up in Mar 2020 and reported persisting pelvic pain radiating it a 6/10. Pain is on the right side with radiation to the left. Pain is stabbing in nature. Some alleviation of pain with a heating pad. Aggravation of pain with movement. Patient does not desire expectant management but would now like to proceed with surgery. H/o endometrial ablation in 2019 for heavy menstrual bleeding. Admission Exam (Per Admitting) Constitutional WD/WN, vitals as above Respiratory normal respiratory effort, lungs clear to auscultation Cardiovascular RRR, no murmur, no edema Gastrointestinal (Abdomen) Inspection/Auscultation: abdomen normal to inspection and normal bowel sounds Discharge Data Procedures Performed Operation Date: 05/18/20 09:40 Actual Procedures p Diagnostic Laparoscopy, Left Oophorectomy, Right Salpingectomy - [facility] Course (1) Ovarian cyst: s/p Diagnostic laparoscopy, left oophorectomy, and right salpingectomy on 05/18/2020. Patient meeting all discharge criteria. Discharge home with instructions. Post-operative medications previously prescribed. (2) Pelvic pain: Discharge Instructions ACTIVITY RECOMMENDATIONS: * Rest the first 2-3 days. You should be back to your normal activity levels by day 3. * No heavy lifting for 4 weeks (no more than 25 pounds- including pushing and pulling). * No intercourse, tampons or douching for 4 weeks. * You may shower the next day. * Do not drive anytime that you are taking narcotic pain medicines. RETURN TO SCHOOL/WORK: * May return to school or work after 2 weeks. DIET: Nausea may occur in the immediate post-operative period. If so, take clear liquids such as tea, bouillon, apple juice until all nausea has subsided, then resume usual diet. MEDICATIONS: Resume previous medications unless instructed otherwise by your surgeon. Please restart Lovenox 60mg subQ Q12 hours on 05/19 at 8pm with last dose on 05/21, or as otherwise instructed by provider/care team. Patient will take 8mg of Coumadin on 05/19 and 05/20, and 6mg on 05/21, then resume current dose of 8mg Sundays and 4mg all other days, or as otherwise instructed by provider/care team. Repeat PT/INR 2 weeks after procedure. Tylenol, simethicone and Colace have been prescribed for you. Please follow instructions on your prescription bottle. It is encouraged that you take tylenol and simethicone around the clock for the first 72 hours after your surgery. SPECIAL CARE INSTRUCTIONS: * Check temperature twice daily for one week. report any elevation over 101 degrees. * You may experience some vagina spotting and/or bleeding. This is normal for 1-2 weeks and should not be heavier than a normal period. If it is unusual in amount, call your physician. * Post-operative discomfort may consist of a sore throat, a "bloated" feeling and pain in the shoulders. these are normal symptoms, which usually only last for 2-3 days. * Incisions are covered with a liquid bandage (Dermabond), this will come off by itself over several days. You may gently peel and remove the remainder after 2 weeks. FOLLOW UP VISIT: Call your doctor's office for a post-operative 2 week visit if not already scheduled.
[2020-05-19] MEDS ORDERED: FLUOXETINE HCL 20 MG CAP PO SCH (09:00)
[2020-05-19] MEDS: KETOROLAC TROMETHAMINE 15 MG/ML VIAL IV PRN (10:06)
[2020-05-19 10:38] VITALS: PULSE 60
== END 2020-05-19 11:32 | disposition home or self-care (01) ==
LOC: 3N 08:12 → ASU 08:12

== ENCOUNTER 2022-04-11 10:56 | Inpatient (IN) ==
[2022-04-11] MEDS ORDERED: ASPIRIN CHEW 324 MG PO STA (11:05)
[2022-04-11] MEDS ORDERED: SODIUM CHLORIDE 0.9% 1000ML 1,000 ML IV ONE (11:23)
--- NOTE | 2022-04-11 11:32 | XRay Report ---
XR chest 1V portable HISTORY: 46 years-old Female Chest Pain acute atypical chest pain COMPARISON: CTA chest 11/23/2021, chest radiograph 11/22/2021 TECHNIQUE: Portable AP view of the chest FINDINGS: The cardiac silhouette is mildly enlarged. No pneumothorax, large pleural effusion or overt pulmonary edema. Mild subsegmental interstitial coarsening of the lung bases. The bones appear grossly intact. IMPRESSION: Mild interstitial coarsening of the lung bases, likely atelectasis. ACT 112: Negative or not required by law. The above report was generated using voice recognition software. It may contain grammatical, syntax o r spelling errors. Electronically signed by: Miguel Angel Miranda M.D. 04/11/2022 11:31 AM
[2022-04-11 11:39] LABS: INR 0.9 (0.9-1.1); Partial Thromboplastin Ratio 0.9; Partial Thromboplastin Time 24.5 Seconds (21.0-31.0)
[2022-04-11 11:50] LABS: BUN Creatinine Ratio 30.8 (10-20); Creatinine Clr Calc Pharmacy 105.4 ml/min; Est GFR (African American) 134.7 ml/min; Est GFR (Non-African American) 116.2 ml/min; Potassium 4.3 mmol/L (3.5-5.1)
[2022-04-11 11:52] LABS: Basophils # (auto) 0.02 K/uL (0-0.2); Basophils % (auto) 0.4 %; Eosinophils # (auto) 0.39 K/uL (0-0.50); Eosinophils % (auto) 7.4 %; Hematocrit (blood only) 39.2 % (34.1-44.9); Hemoglobin 12.3 g/dl (12.0-16.0); Immature Granulocytes # (auto) 0.01 K/uL (0.00-0.02); Immature Granulocytes % (auto) 0.2 %; Lymphocytes # (auto) 1.55 K/uL (1.2-3.4); Lymphocytes % (auto) 29.3 %; Mean Corpuscular Hemoglobin 28.7 pg (25.0-34.0); Mean Corpuscular Hgb Conc 31.4 g/dL (32.0-36.0); Mean Corpuscular Volume 91.6 fL (80.0-100.0); Mean Platelet Volume 12.5 fL (9.4-12.3); Monocytes # (auto) 0.44 K/uL (0.24-0.82); Monocytes % (auto) 8.3 %; Neutrophils # (auto) 2.88 K/uL (1.4-6.5); Neutrophils % (auto) 54.4 %; Platelet Count 121 K/uL (130-400); Platelet Estimate Decreased (Normal); RDW Coefficient of Variation 17.5 % (11.5-14.5); RDW Standard Deviation 58.8 fL (36.4-46.3); Red Blood Count 4.28 M/uL (3.93-5.22); White Blood Count 5.29 K/ul (4.8-10.8)
[2022-04-11 11:56] LABS: Troponin I High Sensitivity 5.6 pg/ml (0-14)
[2022-04-11 12:08] LABS: D Dimer 440 ug/L FEU (0-500)
[2022-04-11] MEDS ORDERED: POLYETHYLENE (MIRALAX) 17 GM PACK PO PRN (13:40)
[2022-04-11] MEDS ORDERED: METHOCARBAMOL 500 MG TABLET PO PRN (13:43)
[2022-04-11] MEDS ORDERED: CALCIUM CARBONATE 500 MG CHEWABLE TAB PO ONE (13:45)
[2022-04-11] MEDS ORDERED: ONDANSETRON INJ 2 MG/ML 2 ML VIAL IV PRN (13:46)
--- NOTE | 2022-04-11 14:04 | Emergency Department Note ---
History of Present Illness General Chief Complaint: Chest Pain Stated Complaint: chest pain Time Seen by Provider: 04/11/22 11:03 History of Present Illness Provider Complaint: chest pain Time: 23:00 Duration: constant Onset: during rest Pain Location: substernal Pain Radiation: none Severity: moderate Maximum Pain Intensity: 5 Current Pain Intensity: 5 Quality: + aching and + heaviness Relieved By: + nothing Exacerbated By: + nothing Context: no recent illness, no recent surgery, no recent travel, no trauma /injury or no history of DVT/PE Associated symptoms: + dyspnea; no nausea, no vomiting, no diaphoresis, no syncope, no palpitations, no fever or no cough Treatments prior to arrival: none Patient reports that she was post have a surgical procedure done at [facility] for a GJ tube placement for her gastroparesis but her mother canceled the surgery. Since the patient was supposed to have this procedure done she has not been taking her Coumadin. Home Medications Medication Instructions Recorded Confirmed Type fluoxetine 20 mg capsule 20 mg PO QAM 10/06/18 12/27/21 History warfarin 4 mg tablet See Rx Instructions .ROUTE .COMPLEX 05/30/19 12/27/21 History acetaminophen 500 mg tablet 1,000 mg PO Q6H PRN 08/09/19 12/27/21 History melatonin 10 mg tablet 10 mg PO HS 04/26/20 12/27/21 History methocarbamol 500 mg tablet 500 mg PO QID PRN 06/13/21 12/27/21 History Cbd Cream 1 applic PO TID PRN 11/22/21 12/27/21 History Delta 8 1 dose PO DIRECTED PRN 11/22/21 12/27/21 History gabapentin 300 mg capsule 300 mg PO QAM 11/22/21 12/27/21 History Allergies Allergy/AdvReac Type Severity Reaction Status Date / Time hydrocodone Allergy Severe RASH, Verified 12/27/21 17:15 FACIAL/TONGUE SWELLING oxycodone [From Percocet] Allergy Severe Rash, Verified 12/27/21 17:15 faciaL/tongue swelling Penicillins Allergy Intermediate Rash Verified 12/27/21 17:15 chicken derived Allergy Mild GI ISSUES Verified 12/27/21 17:15 mold Allergy Unknown Unknown Verified 12/27/21 17:15 azithromycin AdvReac Severe VOMITING Verified 12/27/21 17:15 Past Med/Surg History Medical History Anemia Anxiety Borderline personality disorder Bulimia nervosa (07/11/13) Chronic back pain Clinical depression 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 Factor V Leiden mutation (Unknown) Hiatal hernia with gastroesophageal reflux disease (07/11/13) no current issues Migraine Myotonic muscular dystrophy Ovarian cyst Pulmonary embolism (08/15/12) B/L (2010); diagnosed with Factor V Leiden- on warfarin Viral respiratory illness recent ER visit [place] -- COVID negative -- pt w/ malaise, dry cough, sob (no fever) -- prescribed steroid, inh Surgical History H/O exploratory laparotomy + OVARIAN CYST REMOVAL; Exploratory lap: 01/15/17: Grade view 1, MAC#3, ETT 7.0 + TAP block at [facility] History of adenoidectomy History of blepharoplasty x2 History of cataract surgery History of cholecystectomy History of cystoscopy History of esophagogastroduodenoscopy (EGD) History of tonsillectomy Hx of lumpectomy RIGHT Slow to wake up after anesthesia Family History Father Myotonic muscular dystrophy Grandfather (Paternal) Myotonic muscular dystrophy Brother Myotonic muscular dystrophy Grandmother (Paternal) Myotonic muscular dystrophy Other Cancer Hypertension Social History Smoking Status: Never smoker Second Hand Exposure: No; Hx Alcohol Use: Yes Alcohol type: wine Hx Substance Use: No Preferred Language: Lithuanian Communication Ability: Effective Visual Impairment: No Limitations Cafeteria Associate Required: No Beliefs That Will Affect Care: None marital status: Single Current Living Situation: Spouse current occupational status: unemployed Feels Safe at Home: Yes Assistive Devices: None Review of Systems A total of 10 systems reviewed and were otherwise negative Physical Exam Vital Signs Vital Signs - 24 hr 04/11/22 11:01 04/11/22 11:10 04/11/22 12:12 Temperature 37.2 C Temperature Source Oral Pulse Rate 59 L 57 L Pulse Rate [Right Finger] 56 L 61 Pulse Rhythm Regular Regular Pulse Rhythm [Right Finger] Regular Pulse Strength Normal Pulse Strength [Right Finger] Normal Normal Respiratory Rate 19 17 17 Respiratory Effort / Characteristics Non-Labored Spontaneous Non-Labored Spontaneous Non-Labored Spontaneous Respiratory Depth Normal Normal Normal Respiratory Pattern Regular Regular Regular Blood Pressure 93/59 L Blood Pressure [Left Arm] 93/59 L Blood Pressure Mean 70 Blood Pressure Mean [Left Arm] 70 Blood Pressure Position Lying Blood Pressure Position [Left Arm] Lying Lying Pulse Oximetry 92 92 95 Oxygen Delivery Method Room Air Room Air Room Air Sepsis Recent Fever Within 48 Hours No Sepsis New/Unexplained Change in Mental Status No Sepsis Action Taken by Nursing No Action Required 04/11/22 12:17 04/11/22 13:18 04/11/22 14:00 Temperature Temperature Source Pulse Rate Pulse Rate [Right Finger] 68 67 68 Pulse Rhythm Pulse Rhythm [Right Finger] Regular Regular Regular Pulse Strength Pulse Strength [Right Finger] Normal Normal Normal Respiratory Rate 17 18 17 Respiratory Effort / Characteristics Non-Labored Spontaneous Non-Labored Spontaneous Non-Labored Spontaneous Respiratory Depth Normal Normal Normal Respiratory Pattern Regular Regular Blood Pressure Blood Pressure [Left Arm] 108/60 131/74 136/68 Blood Pressure Mean Blood Pressure Mean [Left Arm] 76 93 90 Blood Pressure Position Blood Pressure Position [Left Arm] Lying Lying Pulse Oximetry 95 95 95 Oxygen Delivery Method Nasal Cannula Room Air Room Air Sepsis Recent Fever Within 48 Hours Sepsis New/Unexplained Change in Mental Status Sepsis Action Taken by Nursing Physical Exam GENERAL: She is oriented to person, place, and time. She appears well-developed and well-nourished. She does not appear distressed. HENT: Exam performed. -Head: Normocephalic and atraumatic. -Right Ear: External ear normal. No mastoid tenderness. -Left Ear: External ear normal. No mastoid tenderness. -Mouth/Throat: The oropharynx is clear and moist. No trismus in the jaw. No dental abscesses or uvula swelling. No oropharyngeal exudate or tonsillar abscesses. EYES: Conjunctivae and EOM are normal. Pupils are equal, round, and reactive to light. Right eye exhibits no discharge. Left eye exhibits no discharge. No scleral icterus. NECK: Normal range of motion. Neck supple. No JVD present. No spinous process tenderness present. No carotid bruit present. No rigidity. No tracheal deviation and normal range of motion present. No Brudzinski's sign and no Kernig's sign noted. CV: Normal rate, regular rhythm, normal heart sounds and intact distal pulses. There is no peripheral edema. Palpable radial pulses bue. PULM/CHEST: Effort normal and breath sounds normal. No respiratory distress. No stridor. She has no wheezes. She has no rales. -Chest Wall: She exhibits no tenderness. ABD: The abdomen is soft. Bowel sounds are normal. She has no distension. No mass is present. There is no tenderness. There is no rebound, no guarding, no Reyes's sign and no tenderness at McBurney's point. Rovsig negative MUSC/SKEL: Normal range of motion. There is no peripheral edema, tenderness or deformity. LYMPH: No cervical adenopathy. NEURO: She is alert and oriented to person, place, and time. She has normal strength. No cranial nerve deficit or sensory deficit. Coordination and gait normal. GCS eye subscore is 4. GCS verbal subscore is 5. GCS motor subscore is 6. Cerebellar tests wnl. SKIN: Skin is warm and dry. She is not diaphoretic. PSYCH: She has a normal mood and affect. Behavior is normal. Judgment and thought content normal. Course Course 1103: The patient was evaluated in room B2. A complete history and physical exam was performed Cardiac monitoring: An order was placed for continuous cardiac monitoring. The monitor shows a rate of 70 with sinus rhythm 1235: Vital signs stable. Labs and imaging within normal limits. Given the patient was post have a recent surgical procedure and was complaining of chest pain the patient will be brought in for observation under [facility] team for chest pain rule out ACS. Discussed the case with Bina Tyler who stated to admit to Dr. Rice's service. Administered Medications Discontinued Medications Aspirin (Aspirin Chew 324 Mg) 324 mg PO NOW STA Stop: 04/11/22 11:06 Last Admin: 04/11/22 11:21 Dose: Not Given Documented by: [id number] Calcium Carbonate (Calcium Carbonate 500 Mg Chewable Tab) 1,000 mg PO ONE ONE Stop: 04/11/22 13:46 Last Admin: 04/11/22 13:58 Dose: 1,000 mg Documented by: [id number] Sodium Chloride (Nss 1000ml) 1,000 mls @ 999 mls/hr IV .Q1H1M ONE Stop: 04/11/22 12:23 Last Infusion: 04/11/22 12:45 Dose: 0 mls/hr Documented by: [id number] Admin: 04/11/22 11:25 Dose: 999 mls/hr Documented by: [id number] Medical Decision Making Laboratory Data Result diagrams: 04/11/22 11:10 04/11/22 11:10 Labs: Lab Results 04/11/22 04/11/22 04/11/22 Range/Units 11:10 11:10 11:10 WBC 5.29 (4.8-10.8) K/ul RBC 4.28 (3.93-5.22) M/uL Hgb 12.3 (12.0-16.0) g/dl Hct 39.2 (34.1-44.9) % MCV 91.6 (80.0-100.0) fL MCH 28.7 (25.0-34.0) pg MCHC 31.4 L (32.0-36.0) g/dL RDW Std Deviation 58.8 H (36.4-46.3) fL RDW Coeff of Ora 17.5 H (11.5-14.5) % Plt Count 121 L (130-400) K/uL MPV 12.5 H (9.4-12.3) fL Immature Gran % (Auto) 0.2 % Neut % (Auto) 54.4 % Lymph % (Auto) 29.3 % [place] % (Auto) 8.3 % Eos % (Auto) 7.4 % Baso % (Auto) 0.4 % Neut # (Auto) 2.88 (1.4-6.5) K/uL Lymph # (Auto) 1.55 (1.2-3.4) K/uL [place] # (Auto) 0.44 (0.24-0.82) K/uL Eos # (Auto) 0.39 (0-0.50) K/uL Baso # (Auto) 0.02 (0-0.2) K/uL Immature Gran # (Auto) 0.01 (0.00-0.02) K/uL Platelet Estimate Decreased L (Normal) PT 10.0 (9.0-12.0) Seconds INR 0.9 (0.9-1.1) APTT 24.5 (21.0-31.0) Seconds PTT Ratio 0.9 D-Dimer (0-500) ug/L FEU Sodium 140 (136-145) mmol/L Potassium 4.3 (3.5-5.1) mmol/L Chloride 108 H (98-107) mmol/L Carbon Dioxide 28 (21-32) mmol/L Anion Gap 4 (3-11) BUN 16 (6-23) mg/dl Creatinine 0.52 L (0.6-1.2) mg/dl Est Cr Clr Drug Dosing 105.4 ml/min Est GFR ( Amer) 134.7 ml/min Est GFR (Non-Af Amer) 116.2 ml/min BUN/Creatinine Ratio 30.8 H (10-20) Glucose 92 (70-99(Fasting)) mg/dl Calcium 10.0 (8.5-10.1) mg/dl Troponin I High Sens 5.6 (0-14) pg/ml Lipase 37 (11-82) U/L SARS-CoV-2, RNA, NAAT (NEGATIVE) 04/11/22 04/11/22 Range/Units 11:10 11:50 WBC (4.8-10.8) K/ul RBC (3.93-5.22) M/uL Hgb (12.0-16.0) g/dl Hct (34.1-44.9) % MCV (80.0-100.0) fL MCH (25.0-34.0) pg MCHC (32.0-36.0) g/dL RDW Std Deviation (36.4-46.3) fL RDW Coeff of Ora (11.5-14.5) % Plt Count (130-400) K/uL MPV (9.4-12.3) fL Immature Gran % (Auto) % Neut % (Auto) % Lymph % (Auto) % [place] % (Auto) % Eos % (Auto) % Baso % (Auto) % Neut # (Auto) (1.4-6.5) K/uL Lymph # (Auto) (1.2-3.4) K/uL [place] # (Auto) (0.24-0.82) K/uL Eos # (Auto) (0-0.50) K/uL Baso # (Auto) (0-0.2) K/uL Immature Gran # (Auto) (0.00-0.02) K/uL Platelet Estimate (Normal) PT (9.0-12.0) Seconds INR (0.9-1.1) APTT (21.0-31.0) Seconds PTT Ratio D-Dimer 440 (0-500) ug/L FEU Sodium (136-145) mmol/L Potassium (3.5-5.1) mmol/L Chloride (98-107) mmol/L Carbon Dioxide (21-32) mmol/L Anion Gap (3-11) BUN (6-23) mg/dl Creatinine (0.6-1.2) mg/dl Est Cr Clr Drug Dosing ml/min Est GFR ( Amer) ml/min Est GFR (Non-Af Amer) ml/min BUN/Creatinine Ratio (10-20) Glucose (70-99(Fasting)) mg/dl Calcium (8.5-10.1) mg/dl Troponin I High Sens (0-14) pg/ml Lipase (11-82) U/L SARS-CoV-2, RNA, NAAT NEGATIVE (NEGATIVE) Imaging Data Chest x-ray: Radiologist's impression: Chest X-Ray 04/11/22 11:06 XR chest 1V portable HISTORY: 46 years-old Female Chest Pain acute atypical chest pain COMPARISON: CTA chest 11/23/2021, chest radiograph 11/22/2021 TECHNIQUE: Portable AP view of the chest FINDINGS: The cardiac silhouette is mildly enlarged. No pneumothorax, large pleural effusion or overt pulmonary edema. Mild subsegmental interstitial coarsening of the lung bases. The bones appear grossly intact. IMPRESSION: Mild interstitial coarsening of the lung bases, likely atelectasis. ACT 112: Negative or not required by law. The above report was generated using voice recognition software. It may contain grammatical, syntax or spelling errors. Electronically signed by: Miguel Angel Miranda M.D. 04/11/2022 11:31 AM ECG Data Indication: chest pain Rate (beats per minute): 59 Rhythm: normal sinus Findings: no ST depression, no ST elevation or no prolonged QT Additional Comments: QRS 70 MDM Narrative Vital signs stable. Labs and imaging within normal limits. Given the patient was post have a recent surgical procedure and was complaining of chest pain the patient will be brought in for observation under [facility] team for chest pain rule out ACS. Discussed the case with Bina Tyler who stated to admit to Dr. Rice's service. Impression & Plan Chest pain Discharge Plan Visit Data Chief Complaint: Chest Pain Stated Complaint: chest pain ED Provider: Anthony Shanks Prescriptions Prescriptions: No Action warfarin 4 mg Tablet See Rx Instructions .ROUTE .COMPLEX RF: 0 acetaminophen 500 mg Tablet 1,000 mg PO Q6H PRN (Reason: Pain) RF: 0 fluoxetine 20 mg capsule 20 mg PO QAM RF: 0 melatonin 10 mg Tablet 10 mg PO HS RF: 0 methocarbamol 500 mg tablet 500 mg PO QID PRN (Reason: MUSCLE SPASMS) RF: 0 gabapentin 300 mg capsule 300 mg PO QAM RF: 0 Cbd Cream 1 applic PO TID PRN (Reason: Pain) RF: 0 Delta 8 1 dose PO DIRECTED PRN (Reason: Pain) RF: 0
--- NOTE | 2022-04-11 14:08 | History & Physical Report ---
Date of Service April 11, 2022 Assessment & Plan (1) Chest pain: Plan: #. Chest pain rule out ACS #. Likely GERD flare-up on the background of gastroparesis and GERD Patient presented with complaint of epigastric pain and mid chest pain started yesterday evening, aggravated with drinking water/curling up/breathing, not sure about relationship with activity. Patient reports choking on food, denies being on any special diet, was scheduled to have feeding tube placement on April 03 at [facility], it was postponed and patient resumed her Coumadin for h/o bilateral PE/coagulopathy. Patient does report having nausea and vomiting every 2 weeks while she is not choking on food but vomits with choking. Admitting labs reviewed, electrolytes WNL. Lipase WNL. Admitting troponin 4.6, trend troponin. Admitting EKG with sinus bradycardia, concern of T wave abnormalities in anterior leads. Admitting CXR with coarsening lung bases Trend troponin, if uptrending or new chest pain with EKG changes, consider cardiology consult. EKG in AM. Tums, PPI, monitor for symptom improvement. Telemetry monitoring. Aspiration precaution. #. Other chronic medical conditions: History of bilateral PE, factor V Leiden mutation, orthostatic hypotension, chronic bilateral low back pain without sciatica Continue with/resume home meds as and when appropriate. INR 0.9 at admission, lovenox until INR therapeutic. Medications reviewed with the patient: Patient takes melatonin 10 mg daily at bedtime, Tylenol for pain, methocarbamol 500 mg up to 4 times a day for muscle spasm, warfarin 4 mg daily but 8 mg on Sundays, fluoxetine 20 mg daily, midodrine 2.5 mg twice daily, Zofran 4 mg every 8 hour as needed for nausea, gabapentin 300 mg a.m., 400 mg afternoon, 300 mg p.m. #. DVT prophylaxis: Patient on warfarin #. Full code History of Present Illness Chief Complaint: Chest pain Primary Care Provider: Chuckie Judge MD 46-year-old lady with PMH gastroparesis, GERD without esophagitis, IBS with both constipation and diarrhea, myotonic muscular dystrophy, bilateral PE, factor B Leyden mutation, PFO, orthostatic hypotension, dermoid cyst of left ovary presented to our ED 04/11 with complaint of chest pain from yesterday evening. Per patient, she had chest pain in the middle of the sternal starting yesterday night at around 11 PM associated with some shortness of breath and radiation of pain to the jaw and bilateral upper back, stabbing/sharp in nature, aggravated with breathing/curling up/drinking water but not sure about any relationship with activity, denies any relieving factor. Of note, patient does have chronic bilateral upper back pain. Patient reports not trying any medication including Tums or Protonix or Prilosec. Patient used to be on PPI in the past but stopped taking it. Patient complains of some heart racing, some cough at baseline, epigastric pain that is also sharp in nature that started today morning which is similar in nature to chest pain. Patient also reports some hallucination last night and today morning, reports seeing cat, None at bedside exam, was AOx3. Patient also complained of nausea and vomiting today morning, of note patient does have nausea and vomiting frequently up to once in 2-week if she does not choke. Patient does have gastroparesis and easily chokes on food, was scheduled to have a feeding tube placed at [place] April 03 but was postponed and she already resumed her Coumadin since then. Patient reports she is not on any special food and takes regular food. Patient denies fever, acute changes in bowel or bladder habit. Patient denies smoking tobacco/use of further tobacco/use of illegal drugs or marijuana. Patient reports having alcoholic drink 1-2 times a year. 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 Family history positive for some kind of heart disease in her grandfather from her dad side but patient not sure of age and nature of the disease. Also reports lung cancer in the same grandfather. Grandfather from mother side with leukemia. Grandmother with right breast cancer and melanoma. Full code Allergies Allergy/AdvReac Type Severity Reaction Status Date / Time hydrocodone Allergy Severe RASH, Verified 12/27/21 17:15 FACIAL/TONGUE SWELLING oxycodone [From Percocet] Allergy Severe Rash, Verified 12/27/21 17:15 faciaL/tongue swelling Penicillins Allergy Intermediate Rash Verified 12/27/21 17:15 chicken derived Allergy Mild GI ISSUES Verified 12/27/21 17:15 mold Allergy Unknown Unknown Verified 12/27/21 17:15 azithromycin AdvReac Severe VOMITING Verified 12/27/21 17:15 Home Medications Medication Instructions Recorded Confirmed Type fluoxetine 20 mg capsule 20 mg PO QAM 10/06/18 12/27/21 History warfarin 4 mg tablet See Rx Instructions .ROUTE .COMPLEX 05/30/19 12/27/21 History acetaminophen 500 mg tablet 1,000 mg PO Q6H PRN 08/09/19 12/27/21 History melatonin 10 mg tablet 10 mg PO HS 04/26/20 12/27/21 History methocarbamol 500 mg tablet 500 mg PO QID PRN 06/13/21 12/27/21 History Cbd Cream 1 applic PO TID PRN 11/22/21 12/27/21 History Delta 8 1 dose PO DIRECTED PRN 11/22/21 12/27/21 History gabapentin 300 mg capsule 300 mg PO QAM 11/22/21 12/27/21 History Past Med/Surg History Medical History (Updated 04/11/22 @ 14:03 by Rosa Rice MD) Anemia Anxiety Borderline personality disorder Bulimia nervosa (07/11/13) Chronic back pain Clinical depression 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 Factor V Leiden mutation (Unknown) Hiatal hernia with gastroesophageal reflux disease (07/11/13) no current issues Migraine Myotonic muscular dystrophy Ovarian cyst Pulmonary embolism (08/15/12) B/L (2010); diagnosed with Factor V Leiden- on warfarin Viral respiratory illness recent ER visit [place] -- COVID negative -- pt w/ malaise, dry cough, sob (no fever) -- prescribed steroid, inh Surgical History H/O exploratory laparotomy + OVARIAN CYST REMOVAL; Exploratory lap: 01/15/17: Grade view 1, MAC#3, ETT 7.0 + TAP block at [facility] History of adenoidectomy History of blepharoplasty x2 History of cataract surgery History of cholecystectomy History of cystoscopy History of esophagogastroduodenoscopy (EGD) History of tonsillectomy Hx of lumpectomy RIGHT Slow to wake up after anesthesia Family History Father Myotonic muscular dystrophy Grandfather (Paternal) Myotonic muscular dystrophy Brother Myotonic muscular dystrophy Grandmother (Paternal) Myotonic muscular dystrophy Other Cancer Hypertension Social History Smoking Status: Never smoker Second Hand Exposure: No; Hx Alcohol Use: Yes Alcohol type: wine Hx Substance Use: No Preferred Language: Luxembourger Communication Ability: Effective Visual Impairment: No Limitations Pyrotechnician Required: No Beliefs That Will Affect Care: None marital status: Single Current Living Situation: Spouse current occupational status: unemployed Feels Safe at Home: Yes Assistive Devices: None Review of Systems Review of Systems: Negative otherwise mentioned in HPI. Physical Exam Physical Exam: GENERAL: Alert and oriented x3. NAD, on RA. HEENT: No pallor, no icterus. Pupils equal, round and reactive to light. Oral mucosa moist. NECK: No JVD, no neck masses. HEART: S1 and S2 heard. Regular rate and rhythm. No murmur, no gallop. RESPIRATORY SYSTEM: Normal AP diameter. No accessory muscle use. No wheezing, no crackles. ABDOMEN: Soft, bowel sounds present, nontender/no grimacing noted, no distention. CENTRAL NERVOUS SYSTEM: No facial droop. Speech is clear. Obeys simple commands. Moves extremities. EXTREMITIES: No edema, no erythema seen. Results & Data Results & Data ([facility]) Vital Signs (Past 12 Hours) Vital Signs Temp Pulse Pulse Resp BP BP Pulse Ox 04/11/22 13:18 67 18 131/74 95 04/11/22 12:17 68 17 108/60 95 04/11/22 12:12 61 17 95 04/11/22 11:10 57 L 56 L 17 93/59 L 92 04/11/22 11:01 37.2 C 59 L 19 93/59 L 92 Code Status & VTE Plan VTE Prophylaxis Plan VTE Prophylaxis will be ordered: Yes
[2022-04-11] MEDS ORDERED: PANTOprazole 40 MG TAB PO ONE (14:15)
[2022-04-11] MEDS ORDERED: GABAPENTIN 300 MG CAP PO SCH (15:30)
[2022-04-11] MEDS: WARFARIN SOD 4 MG TAB PO SCH (17:13)
[2022-04-11] MEDS: GABAPENTIN 400 MG CAP PO SCH (17:13)
[2022-04-11] MEDS: MIDODRINE HCL 2.5 MG TAB PO SCH (17:13)
[2022-04-11] MEDS: ENOXAPARIN INJ 60 MG/0.6 ML SYR SQ SCH ×2 (17:13→23:38)
[2022-04-11] MEDS: CALCIUM CARBONATE 500 MG CHEWABLE TAB PO SCH (20:38)
[2022-04-11] MEDS: GABAPENTIN 300 MG CAP PO SCH (20:39)
[2022-04-11] MEDS: MELATONIN 3 MG TAB PO SCH (20:40)
[2022-04-11] MEDS: PANTOprazole 40 MG TAB PO SCH (20:41)
[2022-04-11] MEDS: ACETAMINOPHEN 325 MG TAB PO PRN (20:49)
--- NOTE | 2022-04-11 23:18 | Electrocardiogram Report ---
Test Reason : Blood Pressure : / mmHG Vent. Rate : 059 BPM Atrial Rate : 059 BPM P-R Int : 192 ms QRS Dur : 070 ms QT Int : 406 ms P-R-T Axes : 007 -01 018 degrees QTc Int : 401 ms Sinus bradycardia Low voltage QRS Nonspecific T wave abnormality Cannot rule out Anterior infarct , age undetermined Abnormal ECG When compared with ECG of 27-DEC-2021 18:12, Nonspecific T wave abnormality now evident in Anterior leads Confirmed by Griffin Turner ([id number]) on 04/11/2022 11:17:42 PM Referred By: REFERRED SELF Confirmed By:Griffin Turner
[2022-04-12 06:51] LABS: BUN Creatinine Ratio 15.6 (10-20); Calcium 9.8 mg/dl (8.5-10.1); Creatinine Clr Calc Pharmacy 95.7 ml/min; Est GFR (African American) 125.8 ml/min; Est GFR (Non-African American) 108.5 ml/min; Magnesium 2.3 mg/dl (1.7-2.4); Phosphorus 2.9 mg/dl (2.5-4.9); Potassium 4.1 mmol/L (3.5-5.1)
[2022-04-12 07:49] LABS: Hematocrit (blood only) 40.3 % (34.1-44.9); Hemoglobin 12.5 g/dl (12.0-16.0); Mean Corpuscular Hemoglobin 28.3 pg (25.0-34.0); Mean Corpuscular Volume 91.2 fL (80.0-100.0); Mean Platelet Volume 12.9 fL (9.4-12.3); Platelet Count 106 K/uL (130-400); Platelet Estimate Decreased (Normal); RDW Coefficient of Variation 17.6 % (11.5-14.5); RDW Standard Deviation 59.2 fL (36.4-46.3); Red Blood Count 4.42 M/uL (3.93-5.22); White Blood Count 3.61 K/ul (4.8-10.8)
[2022-04-12] MEDS: CALCIUM CARBONATE 500 MG CHEWABLE TAB PO SCH ×2 (08:07→21:26)
[2022-04-12] MEDS: FLUoxetine HCL 20 MG CAP PO SCH (08:07)
[2022-04-12] MEDS: PANTOprazole 40 MG TAB PO SCH ×2 (08:08→21:31)
[2022-04-12] MEDS: GABAPENTIN 300 MG CAP PO SCH ×2 (08:08→21:29)
[2022-04-12] MEDS: MIDODRINE HCL 2.5 MG TAB PO SCH ×2 (08:08→16:57)
[2022-04-12] MEDS: ENOXAPARIN INJ 60 MG/0.6 ML SYR SQ SCH ×2 (10:03→21:28)
[2022-04-12] MEDS: ACETAMINOPHEN 325 MG TAB PO PRN ×2 (10:03→21:51)
[2022-04-12] MEDS: SODIUM CHLORIDE 0.9% 1000ML 1,000 ML IV SCH ×2 (11:37→22:25)
--- NOTE | 2022-04-12 12:02 | CT Scan Report ---
CT head/brain wo con CLINICAL HISTORY: Blurred vision with headache COMPARISON STUDY: 11/22/2009 CT DOSE: 537.48 mGy.cm TECHNIQUE: Standard CT of the Brain was performed without IV contrast. A dose lowering technique was utilized adhering to the principles of ALARA. FINDINGS: Extraaxial space: There is no evidence for subdural hematoma. There are no extra-axial fluid collecti ons. Ventricles and cisterns: The ventricles are normal in size and configuration. There is no evidence fo r midline shift or mass effect. Parenchyma: There is no subarachnoid or intraparenchymal hemorrhage. There is no evidence for an acut e infarct or cerebral edema. Decreased attenuation is again seen in the periventricular white matter and centrum semiovale ovale characteristic of remote small vessel disease. This is unusual for a hardy ent of this age. There is homogeneous attenuation of the brain parenchyma. There are no gross mass le sions. Osseous structures: There is no evidence for an acute fracture. The visualized paranasal sinuses are clear. The mastoid air cells are clear bilaterally. Soft tissues: There is no evidence for focal soft tissue swelling. IMPRESSION: 1. No acute intracerebral pathology. 2. Remote small vessel disease is again seen. ACT 112: Negative or not required by law. Electronically signed by: Brandon Harrison M.D. 04/12/2022 12:00 PM
--- NOTE | 2022-04-12 12:25 | Electrocardiogram Report ---
Test Reason : Blood Pressure : / mmHG Vent. Rate : 045 BPM Atrial Rate : 045 BPM P-R Int : 208 ms QRS Dur : 080 ms QT Int : 460 ms P-R-T Axes : 042 031 014 degrees QTc Int : 397 ms Sinus bradycardia Low voltage QRS Nonspecific T wave abnormality Abnormal ECG When compared with ECG of 11-APR-2022 11:07, No significant change was found Confirmed by Harman Parra ([id number]) on 04/12/2022 12:24:50 PM Referred By: REFERRED SELF Confirmed By:Marcelo Parra
[2022-04-12] MEDS: GABAPENTIN 400 MG CAP PO SCH (13:39)
[2022-04-12 15:28] LABS: Appearance Urine Clear (Clear); Bilirubin Urine Negative (Negative); Blood Urine Negative (Negative); Color Urine Yellow; Glucose Urine UA Negative (Negative); Ketones Urine Negative (Negative); Leukocyte Esterase Urine Negative (Negative); Nitrite Urine Negative (Negative); Protein Urine Negative (Negative); Specific Gravity Urine 1.004 (1.000-1.030); Urobilinogen Urine Negative (Negative)
--- NOTE | 2022-04-12 15:37 | Hospitalist Progress Note ---
Date of Service April 12, 2022 Assessment & Plan (1) Chest pain: Plan: Patient presented with complaint of epigastric pain and mid chest pain started yesterday evening, aggravated with drinking water/curling up/breathing, not sure about relationship with activity. Patient reports choking on food, denies being on any special diet, was scheduled to have feeding tube placement on April 03 at [facility] [place], it was postponed and patient resumed her Coumadin for h/o bilateral PE/coagulopathy. Patient does report having nausea and vomiting every 2 weeks while she is not choking on food but vomits with choking Initial troponin was mildly elevated but subsequent troponin did not show any evidence of ACS Still has nonspecific chest pain without any EKG changes Asymptomatic bradycardia EKG this morning showed a rate of 45 with sinus rhythm Did not have any symptoms Heart rate is going up to 70 as of now Will monitor while in the hospital as myotonia can cause conduction problem in the heart (2) Pulmonary embolism: Plan: History of factor V Leiden and pulmonary embolism Has been on Coumadin but unfortunately INR is 1.0 Still has very nonspecific symptoms Has been getting Lovenox and Coumadin restarted We will get a CTA to rule out pulmonary embolism (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 Likely GERD flare-up on the background of gastroparesis and GERD Trend troponin, if uptrending or new chest pain with EKG changes, consider cardiology consult. EKG in AM. Tums, PPI, monitor for symptom improvement. Telemetry monitoring. Aspiration precaution. #. Other chronic medical conditions: History of bilateral PE, factor V Leiden mutation, orthostatic hypotension, chronic bilateral low back pain without sciatica Continue with/resume home meds as and when appropriate. INR 0.9 at admission, lovenox until INR therapeutic. Medications reviewed with the patient: Patient takes melatonin 10 mg daily at bedtime, Tylenol for pain, methocarbamol 500 mg up to 4 times a day for muscle spasm, warfarin 4 mg daily but 8 mg on Sundays, fluoxetine 20 mg daily, midodrine 2.5 mg twice daily, Zofran 4 mg every 8 hour as needed for nausea, gabapentin 300 mg a.m., 400 mg afternoon, 300 mg p.m. #. DVT prophylaxis: Patient on warfarin #. Full code Admission and Anticipated Discharge Date Admission Date: April 11, 2022 Subjective 04/12/2022 The patient was seen and examined in medical telemetry unit She has myotonic muscular dystrophy with weakness, GI symptoms and possible cardiac symptoms She complains to have burning in the head with questionable blurred vision since this morning Also complains to have chest pain which has been ongoing for the last few days She also complained abdominal pain with minimal distention and she has history of gastroparesis Review of Systems Review of Systems: All systems reviewed and are unremarkable except as noted b elow Respiratory: No shortness of breath at rest Cardiovascular: Additional Comments: Chest pain at rest without any associated symptoms Gastrointestinal: Minimal abdominal distention with tenderness on palpation Physical Exam Physical Exam: Lying in bed comfortably Constitutional: well developed, well nourished and average body habitus; not ill appearing Eyes: PERRL, conjunctivae normal, anicteric sclerae ENMT: external ear and nose normal, oropharynx normal Neck: trachea midline, no thyromegaly Respiratory: no respiratory distress Auscultation: + diminished lung sounds and + crackles (Bibasilar crackles more on the left than the right side) Cardiovascular: Rate/Rhythm: regular rate, regular rhythm and + bradycardic Heart Sounds: normal S1, normal S2 and + murmur (1/6 ESM over precordium) Extremities: + edema (Trace edema bilaterally) Gastrointestinal (Abdomen): Inspection/Auscultation: + abdomen distended and normal bowel sounds Percussion/Palpation: + abdomen tender (Mildly tender all over but more tenderness in hypogastrium) and abdomen soft Musculoskeletal: No acute arthritis in any joint Neurologic: Alert, awake and oriented x3. Focal sensory and motor deficit appreciated Lymphatic: no cervical or axillary lymphadenopathy Results & Data Results & Data ([facility]) Vital Signs (Past 12 Hours) Vital Signs Temp Pulse Pulse Resp BP Pulse Ox Pulse Ox 04/12/22 15:08 36.7 C 70 18 102/67 90 04/12/22 13:40 94 04/12/22 12:32 36.8 C 54 L 18 102/68 91 04/12/22 07:15 45 L 04/12/22 07:14 36.4 C L 42 L 16 90/55 L 94 04/12/22 04:00 36.7 C 49 L 18 100/64 92 Laboratory Results Short CBC 04/12/22 Range/Units 06:00 WBC 3.61 L (4.8-10.8) K/ul Hgb 12.5 (12.0-16.0) g/dl Hct 40.3 (34.1-44.9) % Plt Count 106 L (130-400) K/uL BMP 04/12/22 06:00 Sodium 143 Potassium 4.1 Chloride 111 H Carbon Dioxide 29 BUN 10 Creatinine 0.64 Glucose 84 Calcium 9.8 Medications Administered Current Inpatient Medications Acetaminophen (Acetaminophen 325 Mg Tab) 650 mg PO Q4H PRN PRN Reason: Pain or Fever Stop: 05/11/22 13:39 Last Admin: 04/12/22 10:03 Dose: 650 mg Documented by: Calcium Carbonate (Calcium Carbonate 500 Mg Chewable Tab) 1,000 mg PO BID [facility] Stop: 04/15/22 09:01 Last Admin: 04/12/22 08:07 Dose: 1,000 mg Documented by: Enoxaparin Sodium (Enoxaparin Inj 60 Mg/0.6 Ml Syr) 60 mg SQ Q12 JESSY Stop: 05/11/22 15:29 Last Admin: 04/12/22 10:03 Dose: 60 mg Documented by: Fluoxetine HCl (Fluoxetine Hcl 20 Mg Cap) 20 mg PO QAM JESSY Stop: 05/12/22 08:59 Last Admin: 04/12/22 08:07 Dose: 20 mg Documented by: Gabapentin (Gabapentin 300 Mg Cap) 300 mg PO BID JESSY Stop: 05/11/22 15:29 Last Admin: 04/12/22 08:08 Dose: 300 mg Documented by: Gabapentin (Gabapentin 400 Mg Cap) 400 mg PO DAILY@1400 [facility] Stop: 05/11/22 15:59 Last Admin: 04/12/22 13:39 Dose: 400 mg Documented by: Sodium Chloride (Nss 1000ml) 1,000 mls @ 80 mls/hr IV .[id number] [facility] Stop: 04/14/22 00:44 Last Admin: 04/12/22 11:37 Dose: 80 mls/hr Documented by: Melatonin (Melatonin 3 Mg Tab) 9 mg PO HS [facility]; Protocol Stop: 05/11/22 20:59 Last Admin: 04/11/22 20:40 Dose: 9 mg Documented by: Methocarbamol (Methocarbamol 500 Mg Tablet) 500 mg PO QID PRN PRN Reason: MUSCLE SPASMS Stop: 05/11/22 13:42 Midodrine (Midodrine Hcl 2.5 Mg Tab) 2.5 mg PO DAILY@0900,1800 [facility] Stop: 05/11/22 17:59 Last Admin: 04/12/22 08:08 Dose: 2.5 mg Documented by: Ondansetron HCl (Ondansetron Inj 2 Mg/Ml 2 Ml Vial) 4 mg IV Q8H PRN PRN Reason: Nausea And Vomiting Stop: 05/11/22 13:45 Pantoprazole Sodium (Pantoprazole 40 Mg Tab) 40 mg PO BID [facility] Stop: 05/11/22 20:59 Last Admin: 04/12/22 08:08 Dose: 40 mg Documented by: Polyethylene Glycol (Polyethylene (Miralax) 17 Gm Pack) 17 gm PO DAILY PRN PRN Reason: Constipation Stop: 05/11/22 13:39 Warfarin Sodium (Warfarin Sod 4 Mg Tab) 4 mg PO MoTuWeThFrSa@1600 [facility] Stop: 05/11/22 15:59 Last Admin: 04/11/22 17:13 Dose: 4 mg Documented by: Warfarin Sodium (Warfarin Sod 4 Mg Tab) 8 mg PO Cardenas@1600 [facility] Stop: 05/13/22 15:59
[2022-04-12] MEDS ORDERED: OPTIRAY 320 125ml IV ONE (15:51)
--- NOTE | 2022-04-12 16:34 | CT Scan Report ---
CT angio chest PE protocol CLINICAL HISTORY: Shortness of breath COMPARISON STUDY: Portable chest from 04/11/2022 CT DOSE: 225.13 mGy.cm TECHNIQUE: CT Angio of the chest was performed.followed by image post processing with coronal, and s agittal MIP reformats. Contrast Volume: Optiray 320, 119 ml FINDINGS: Vasculature: There is homogeneous perfusion of the pulmonary vasculature bilaterally. No intraluminal filling defects or evidence for pulmonary embolus is seen. Airway: The airway is clear. No endobronchial lesion is identified. Lungs: The lungs are clear of acute alveolar opacities, air bronchograms or pulmonary nodules. Pleura: There is no evidence for pleural effusion. There is no evidence for pneumothorax. Mediastinum: There is no evidence for pathologic adenopathy. The heart size is within normal limits. The thoracic aorta is within normal limits. There is no evidence for pericardial effusion. Upper abdomen:The adrenal glands are normal bilaterally. The stomach is distended with liquid and kristian d stuff. Osseous structures: There is no acute osseous pathology. Impression: 1. No CTA evidence for pulmonary embolus. 2. No acute chest disease. 3. Additional nonacute findings are delineated above. ACT 112: Negative or not required by law. Electronically signed by: Brandon Harrison M.D. 04/12/2022 4:32 PM
[2022-04-12] MEDS: WARFARIN SOD 4 MG TAB PO SCH (16:56)
[2022-04-12] MEDS: MELATONIN 3 MG TAB PO SCH (21:31)
[2022-04-13 07:20] LABS: Calcium 8.9 mg/dl (8.5-10.1); Creatinine Clr Calc Pharmacy 119.6 ml/min; Est GFR (African American) 136.4 ml/min; Est GFR (Non-African American) 117.7 ml/min; Prothrombin Time 10.8 Seconds (9.0-12.0)
[2022-04-13 07:34] LABS: Basophils # (auto) 0.01 K/uL (0-0.2); Basophils % (auto) 0.3 %; Eosinophils # (auto) 0.21 K/uL (0-0.50); Eosinophils % (auto) 6.3 %; Hematocrit (blood only) 35.6 % (34.1-44.9); Hemoglobin 11.2 g/dl (12.0-16.0); Immature Granulocytes # (auto) 0.01 K/uL (0.00-0.02); Immature Granulocytes % (auto) 0.3 %; Lymphocytes # (auto) 1.33 K/uL (1.2-3.4); Lymphocytes % (auto) 39.7 %; Mean Corpuscular Hemoglobin 28.7 pg (25.0-34.0); Mean Corpuscular Hgb Conc 31.5 g/dL (32.0-36.0); Mean Corpuscular Volume 91.3 fL (80.0-100.0); Mean Platelet Volume 12.1 fL (9.4-12.3); Monocytes # (auto) 0.29 K/uL (0.24-0.82); Monocytes % (auto) 8.7 %; Neutrophils % (auto) 44.7 %; Platelet Count 98 K/uL (130-400); Platelet Estimate Decreased (Normal); RDW Coefficient of Variation 17.9 % (11.5-14.5); RDW Standard Deviation 60.1 fL (36.4-46.3); White Blood Count 3.35 K/ul (4.8-10.8)
[2022-04-13] MEDS: MIDODRINE HCL 2.5 MG TAB PO SCH ×2 (08:10→17:07)
[2022-04-13] MEDS: ENOXAPARIN INJ 60 MG/0.6 ML SYR SQ SCH ×2 (08:12→21:16)
[2022-04-13] MEDS: FLUoxetine HCL 20 MG CAP PO SCH (08:13)
[2022-04-13] MEDS: GABAPENTIN 300 MG CAP PO SCH ×2 (08:14→21:17)
[2022-04-13] MEDS: PANTOprazole 40 MG TAB PO SCH ×2 (08:14→21:17)
[2022-04-13] MEDS: CALCIUM CARBONATE 500 MG CHEWABLE TAB PO SCH ×2 (08:17→21:19)
[2022-04-13] MEDS: SODIUM CHLORIDE 0.9% 1000ML 1,000 ML IV SCH (09:56)
--- NOTE | 2022-04-13 13:26 | Hospitalist Progress Note ---
Date of Service April 13, 2022 Assessment & Plan (1) Chest pain: Plan: Patient presented with complaint of epigastric pain and mid chest pain started yesterday evening, aggravated with drinking water/curling up/breathing, not sure about relationship with activity. Patient reports choking on food, denies being on any special diet, was scheduled to have feeding tube placement on April 03 at [facility] [place], it was postponed and patient resumed her Coumadin for h/o bilateral PE/coagulopathy. Patient does report having nausea and vomiting every 2 weeks while she is not choking on food but vomits with choking Initial troponin was mildly elevated but subsequent troponin did not show any evidence of ACS Still has nonspecific chest pain without any EKG changes No more chest pain and/or palpitation Asymptomatic bradycardia EKG this morning showed a rate of 45 with sinus rhythm Did not have any symptoms Heart rate is going up to 70 as of now Will monitor while in the hospital as myotonia can cause conduction problem in the heart Heart rate remains around 60 (2) Pulmonary embolism: Plan: History of factor V Leiden and pulmonary embolism Has been on Coumadin but unfortunately INR is 1.0 Still has very nonspecific symptoms Has been getting Lovenox and Coumadin restarted We will get a CTA to rule out pulmonary embolism CTA did not show any pulmonary embolism Has been getting Coumadin which will be supervised today Check INR-continue Lovenox (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 Likely GERD flare-up on the background of gastroparesis and GERD Trend troponin, if uptrending or new chest pain with EKG changes, consider cardiology consult. EKG in AM. Tums, PPI, monitor for symptom improvement. Telemetry monitoring. Aspiration precaution. #. Other chronic medical conditions: History of bilateral PE, factor V Leiden mutation, orthostatic hypotension, chronic bilateral low back pain without sciat ica Continue with/resume home meds as and when appropriate. INR 0.9 at admission, lovenox until INR therapeutic. Medications reviewed with the patient: Patient takes melatonin 10 mg daily at bedtime, Tylenol for pain, methocarbamol 500 mg up to 4 times a day for muscle spasm, warfarin 4 mg daily but 8 mg on Sundays, fluoxetine 20 mg daily, midodrine 2.5 mg twice daily, Zofran 4 mg every 8 hour as needed for nausea, gabapentin 300 mg a.m., 400 mg afternoon, 300 mg p.m. #. DVT prophylaxis: Patient on warfarin #. Full code We will get PT and OT evaluation and possible discharge tomorrow on Lovenox and Coumadin Admission and Anticipated Discharge Date Admission Date: April 11, 2022 Subjective 04/12/2022 The patient was seen and examined in medical telemetry unit She has myotonic muscular dystrophy with weakness, GI symptoms and possible cardiac symptoms She complains to have burning in the head with questionable blurred vision since this morning Also complains to have chest pain which has been ongoing for the last few days She also complained abdominal pain with minimal distention and she has history of gastroparesis 04/13/2022 The patient was seen and examined in medical telemetry unit She has been feeling much better but complains to have dizziness even in bed She denies any other symptoms today Surprisingly her INR remains at 1 even after getting Coumadin for the last 3 days Review of Systems Review of Systems: All systems reviewed and are unremarkable except as noted below Respiratory: No shortness of breath at rest Cardiovascular: Additional Comments: Chest pain at rest without any associated symptoms Gastrointestinal: Minimal abdominal distention with tenderness on palpation Physical Exam Physical Exam: Lying in bed comfortably Constitutional: well developed, well nourished and average body habitus; not ill appearing Eyes: PERRL, conjunctivae normal, anicteric sclerae ENMT: external ear and nose normal, oropharynx normal Neck: trachea midline, no thyromegaly Respiratory: no respiratory distress Auscultation: + diminished lung sounds and + crackles (Bibasilar crackles more on the left than the right side) Cardiovascular: Rate/Rhythm: regular rate, regular rhythm and + bradycardic Heart Sounds: normal S1, normal S2 and + murmur (1/6 ESM over precordium) Extremities: + edema (Trace edema bilaterally) Gastrointestinal (Abdomen): Inspection/Auscultation: + abdomen distended and normal bowel sounds Percussion/Palpation: + abdomen tender (Mildly tender all over but more tenderness in hypogastrium) and abdomen soft Musculoskeletal: No acute arthritis in any joint Neurologic: Alert, awake and oriented x3. No focal sensory or no motor deficit appreciated Psychiatric: A+Ox3, euthymic affect Lymphatic: no cervical or axillary lymphadenopathy Results & Data Results & Data ([facility]) Vital Signs (Past 12 Hours) Vital Signs Temp Pulse Pulse Resp BP BP Pulse Ox 04/13/22 12:24 36.7 C 60 18 107/70 94 04/13/22 07:20 55 L 04/13/22 06:37 36.9 C 57 L 16 96/62 L 90 04/13/22 02:52 36.8 C 62 18 97/65 L 91 Laboratory Results Short CBC 04/13/22 Range/Units 06:49 WBC 3.35 L (4.8-10.8) K/ul Hgb 11.2 L (12.0-16.0) g/dl Hct 35.6 (34.1-44.9) % Plt Count 98 L (130-400) K/uL BMP 04/13/22 06:49 Sodium 143 Potassium 4.0 Chloride 114 H Carbon Dioxide 29 BUN 9 Creatinine 0.50 L Glucose 90 Calcium 8.9 Urine 04/12/22 Range/Units Unknown Urine Color Yellow Urine Appearance Clear (Clear) Urine pH 7.0 (4.5-7.5) Ur Specific [place] 1.004 (1.000-1.030) Urine Protein Negative (Negative) Urine Glucose (UA) Negative (Negative) Medications Administered Current Inpatient Medications Acetaminophen (Acetaminophen 325 Mg Tab) 650 mg PO Q4H PRN PRN Reason: Pain or Fever Stop: 05/11/22 13:39 Last Admin: 04/12/22 21:51 Dose: 650 mg Documented by: Calcium Carbonate (Calcium Carbonate 500 Mg Chewable Tab) 1,000 mg PO BID JESSY Stop: 04/15/22 09:01 Last Admin: 04/13/22 08:17 Dose: Not Given Documented by: Enoxaparin Sodium (Enoxaparin Inj 60 Mg/0.6 Ml Syr) 60 mg SQ Q12 JESSY Stop: 05/11/22 15:29 Last Admin: 04/13/22 08:12 Dose: 60 mg Documented by: Fluoxetine HCl (Fluoxetine Hcl 20 Mg Cap) 20 mg PO QAM JESSY Stop: 05/12/22 08:59 Last Admin: 04/13/22 08:13 Dose: 20 mg Documented by: Gabapentin (Gabapentin 300 Mg Cap) 300 mg PO BID [facility] Stop: 05/11/22 15:29 Last Admin: 04/13/22 08:14 Dose: 300 mg Documented by: Gabapentin (Gabapentin 400 Mg Cap) 400 mg PO DAILY@1400 [facility] Stop: 05/11/22 15:59 Last Admin: 04/12/22 13:39 Dose: 400 mg Documented by: Sodium Chloride (Nss 1000ml) 1,000 mls @ 80 mls/hr IV .[id number] [facility] Stop: 04/14/22 00:44 Last Admin: 04/13/22 09:56 Dose: 80 mls/hr Documented by: Melatonin (Melatonin 3 Mg Tab) 9 mg PO HS [facility]; Protocol Stop: 05/11/22 20:59 Last Admin: 04/12/22 21:31 Dose: 9 mg Documented by: Methocarbamol (Methocarbamol 500 Mg Tablet) 500 mg PO QID PRN PRN Reason: MUSCLE SPASMS Stop: 05/11/22 13:42 Midodrine (Midodrine Hcl 2.5 Mg Tab) 2.5 mg PO DAILY@0900,1800 [facility] Stop: 05/11/22 17:59 Last Admin: 04/13/22 08:10 Dose: 2.5 mg Documented by: Ondansetron HCl (Ondansetron Inj 2 Mg/Ml 2 Ml Vial) 4 mg IV Q8H PRN PRN Reason: Nausea And Vomiting Stop: 05/11/22 13:45 Pantoprazole Sodium (Pantoprazole 40 Mg Tab) 40 mg PO BID [facility] Stop: 05/11/22 20:59 Last Admin: 04/13/22 08:14 Dose: 40 mg Documented by: Polyethylene Glycol (Polyethylene (Miralax) 17 Gm Pack) 17 gm PO DAILY PRN PRN Reason: Constipation Stop: 05/11/22 13:39 Warfarin Sodium (Warfarin Sod 4 Mg Tab) 4 mg PO MoTuWeThFrSa@1600 [facility] Stop: 05/11/22 15:59 Last Admin: 04/12/22 16:56 Dose: 4 mg Documented by: Warfarin Sodium (Warfarin Sod 4 Mg Tab) 8 mg PO Cardenas@1600 [facility] Stop: 05/13/22 15:59
[2022-04-13] MEDS: GABAPENTIN 400 MG CAP PO SCH (13:55)
[2022-04-13] MEDS ORDERED: WARFARIN SOD 4 MG TAB PO SCH (16:00)
[2022-04-13] MEDS: MELATONIN 3 MG TAB PO SCH (21:17)
[2022-04-14] MEDS: ENOXAPARIN INJ 60 MG/0.6 ML SYR SQ SCH (07:57)
[2022-04-14] MEDS: FLUoxetine HCL 20 MG CAP PO SCH (07:57)
[2022-04-14] MEDS: CALCIUM CARBONATE 500 MG CHEWABLE TAB PO SCH ×2 (07:57→07:58)
[2022-04-14] MEDS: PANTOprazole 40 MG TAB PO SCH (07:58)
[2022-04-14] MEDS: GABAPENTIN 300 MG CAP PO SCH (07:58)
[2022-04-14] MEDS: MIDODRINE HCL 2.5 MG TAB PO SCH (07:58)
[2022-04-14 08:50] LABS: INR 1.2 (0.9-1.1)
[2022-04-14 08:52] LABS: Creatinine Clr Calc Pharmacy 97.5 ml/min; Est GFR (African American) 128.5 ml/min; Est GFR (Non-African American) 110.9 ml/min
--- NOTE | 2022-04-14 10:46 | Hospitalist Progress Note ---
Date of Service April 14, 2022 Assessment & Plan (1) Chest pain: Plan: Patient presented with complaint of epigastric pain and mid chest pain started yesterday evening, aggravated with drinking water/curling up/breathing, not sure about relationship with activity. Patient reports choking on food, denies being on any special diet, was scheduled to have feeding tube placement on April 03 at [facility], it was postponed and patient resumed her Coumadin for h/o bilateral PE/coagulopathy. Patient does report having nausea and vomiting every 2 weeks while she is not choking on food but vomits with choking Initial troponin was mildly elevated but subsequent troponin did not show any evidence of ACS Still has nonspecific chest pain without any EKG changes No more chest pain and/or palpitation Her heart rate remains at around 60s Asymptomatic bradycardia EKG this morning showed a rate of 45 with sinus rhythm Did not have any symptoms Heart rate is going up to 70 as of now Will monitor while in the hospital as myotonia can cause conduction problem in the heart Heart rate remains around 60 No more bloody arrhythmias (2) Pulmonary embolism: Plan: History of factor V Leiden and pulmonary embolism Has been on Coumadin but unfortunately INR is 1.0 Still has very nonspecific symptoms Has been getting Lovenox and Coumadin restarted We will get a CTA to rule out pulmonary embolism CTA did not show any pulmonary embolism Has been getting Coumadin which will be supervised today Check INR-continue Lovenox INR is 1.2 and she will go home on Lovenox and INR She has the Lovenox at home and she used it before and knows how to use it (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 Likely GERD flare-up on the background of gastroparesis and GERD Trend troponin, if uptrending or new chest pain with EKG changes, consider cardiology consult. EKG in AM. Tums, PPI, monitor for symptom improvement. Telemetry monitoring. Aspiration precaution. #. Other chronic medical conditions: History of bilateral PE, factor V Leiden mutation, orthostatic hypotension, chronic bilateral low back pain without sciatica Continue with/resume home meds as and when appropriate. INR 0.9 at admission, lovenox until INR therapeutic. Medications reviewed with the patient: Patient takes melatonin 10 mg daily at bedtime, Tylenol for pain, methocarbamol 500 mg up to 4 times a day for muscle spasm, warfarin 4 mg daily but 8 mg on Sundays, fluoxetine 20 mg daily, midodrine 2.5 mg twice daily, Zofran 4 mg every 8 hour as needed for nausea, gabapentin 300 mg a.m., 400 mg afternoon, 300 mg p.m. #. DVT prophylaxis: Patient on warfarin #. Full code We will get PT and OT evaluation and possible discharge tomorrow on Lovenox and Coumadin Discharged home this afternoon Admission and Anticipated Discharge Date Admission Date: April 13, 2022 Subjective 04/12/2022 The patient was seen and examined in medical telemetry unit She has myotonic muscular dystrophy with weakness, GI symptoms and possible cardiac symptoms She complains to have burning in the head with questionable blurred vision since this morning Also complains to have chest pain which has been ongoing for the last few days She also complained abdominal pain with minimal distention and she has history of gastroparesis 04/13/2022 The patient was seen and examined in medical telemetry unit She has been feeling much better but complains to have dizziness even in bed She denies any other symptoms today Surprisingly her INR remains at 1 even after getting Coumadin for the last 3 days 04/14/2022 The patient was seen and examined in medical telemetry unit She has been feeling much better and does have few nonspecific symptoms Her INR remains low at 1.2 She has had physical therapy and she did pretty good with it Review of Systems Review of Systems: All systems reviewed and are unremarkable except as noted below Respiratory: No shortness of breath at rest Cardiovascular: Additional Comments: Chest pain at rest without any associated symptoms Gastrointestinal: Minimal abdominal distention with tenderness on palpation Physical Exam Physical Exam: Lying in bed comfortably Constitutional: well developed, well nourished and average body habitus; not ill appearing Eyes: PERRL, conjunctivae normal, anicteric sclerae ENMT: external ear and nose normal, oropharynx normal Neck: trachea midline, no thyromegaly Respiratory: no respiratory distress Auscultation: + diminished lung sounds and + crackles (Bibasilar crackles more on the left than the right side) Cardiovascular: Rate/Rhythm: regular rate, regular rhythm and + bradycardic Heart Sounds: normal S1, normal S2 and + murmur (1/6 ESM over precordium) Extremities: + edema (Trace edema bilaterally) Gastrointestinal (Abdomen): Inspection/Auscultation: + abdomen distended and normal bowel sounds Percussion/Palpation: + abdomen tender (Mildly tender all over but more tenderness in hypogastrium) and abdomen soft Musculoskeletal: No acute arthritis in any joint Neurologic: normal touch/pain/proprioception and moves all extremities Psychiatric: A+Ox3, euthymic affect Lymphatic: no cervical or axillary lymphadenopathy Results & Data Results & Data ([facility]) Vital Signs (Past 12 Hours) Vital Signs Temp Pulse Pulse Resp BP Pulse Ox 04/14/22 08:00 36.6 C 59 L 18 97/57 L 91 04/14/22 06:10 56 L 04/14/22 02:42 36.8 C 54 L 16 101/65 90 04/13/22 22:45 36.8 C 54 L 16 100/63 91 Laboratory Results [facility] 04/14/22 07:56 Creatinine 0.60 Medications Administered Current Inpatient Medications Acetaminophen (Acetaminophen 325 Mg Tab) 650 mg PO Q4H PRN PRN Reason: Pain or Fever Stop: 05/11/22 13:39 Last Admin: 04/12/22 21:51 Dose: 650 mg Documented by: Calcium Carbonate (Calcium Carbonate 500 Mg Chewable Tab) 1,000 mg PO BID [facility] Stop: 04/15/22 09:01 Last Admin: 04/14/22 07:57 Dose: 1,000 mg Documented by: Enoxaparin Sodium (Enoxaparin Inj 60 Mg/0.6 Ml Syr) 60 mg SQ Q12 JESSY Stop: 05/11/22 15:29 Last Admin: 04/14/22 07:57 Dose: 60 mg Documented by: Fluoxetine HCl (Fluoxetine Hcl 20 Mg Cap) 20 mg PO QAM JESSY Stop: 05/12/22 08:59 Last Admin: 04/14/22 07:57 Dose: 20 mg Documented by: Gabapentin (Gabapentin 300 Mg Cap) 300 mg PO BID [facility] Stop: 05/11/22 15:29 Last Admin: 04/14/22 07:58 Dose: 300 mg Documented by: Gabapentin (Gabapentin 400 Mg Cap) 400 mg PO DAILY@1400 [facility] Stop: 05/11/22 15:59 Last Admin: 04/13/22 13:55 Dose: 400 mg Documented by: Melatonin (Melatonin 3 Mg Tab) 9 mg PO HS [facility]; Protocol Stop: 05/11/22 20:59 Last Admin: 04/13/22 21:17 Dose: 9 mg Documented by: Methocarbamol (Methocarbamol 500 Mg Tablet) 500 mg PO QID PRN PRN Reason: MUSCLE SPASMS Stop: 05/11/22 13:42 Midodrine (Midodrine Hcl 2.5 Mg Tab) 2.5 mg PO DAILY@0900,1800 [facility] Stop: 05/11/22 17:59 Last Admin: 04/14/22 07:58 Dose: 2.5 mg Documented by: Ondansetron HCl (Ondansetron Inj 2 Mg/Ml 2 Ml Vial) 4 mg IV Q8H PRN PRN Reason: Nausea And Vomiting Stop: 05/11/22 13:45 Pantoprazole Sodium (Pantoprazole 40 Mg Tab) 40 mg PO BID [facility] Stop: 05/11/22 20:59 Last Admin: 04/14/22 07:58 Dose: 40 mg Documented by: Polyethylene Glycol (Polyethylene (Miralax) 17 Gm Pack) 17 gm PO DAILY PRN PRN Reason: Constipation Stop: 05/11/22 13:39 Warfarin Sodium (Warfarin Sod 4 Mg Tab) 4 mg PO MoTuWeThFrSa@1600 [facility] Stop: 05/11/22 15:59 Last Admin: 04/12/22 16:56 Dose: 4 mg Documented by: Warfarin Sodium (Warfarin Sod 4 Mg Tab) 8 mg PO Cardenas@1600 [facility] Stop: 05/13/22 15:59 Last Admin: 04/13/22 16:10 Dose: 8 mg Documented by:
--- NOTE | 2022-04-25 09:57 | Discharge Summary ---
Date of Service April 14, 2022 Admission HPI Per Admitting Provider 46-year-old lady with PMH gastroparesis, GERD without esophagitis, IBS with both constipation and diarrhea, myotonic muscular dystrophy, bilateral PE, factor B Leyden mutation, PFO, orthostatic hypotension, dermoid cyst of left ovary presented to our ED 04/11 with complaint of chest pain from yesterday evening. Per patient, she had chest pain in the middle of the sternal starting yesterday night at around 11 PM associated with some shortness of breath and radiation of pain to the jaw and bilateral upper back, stabbing/sharp in nature, aggravated with breathing/curling up/drinking water but not sure about any relationship with activity, denies any relieving factor. Of note, patient does have chronic bilateral upper back pain. Patient reports not trying any medication including Tums or Protonix or Prilosec. Patient used to be on PPI in the past but stopped taking it. Patient complains of some heart racing, some cough at baseline, epigastric pain that is also sharp in nature that started today morning which is similar in nature to chest pain. Patient also reports some hallucination last night and today morning, reports seeing cat, None at bedside exam, was AOx3. Patient also complained of nausea and vomiting today morning, of note patient does have nausea and vomiting frequently up to once in 2-week if she does not choke. Patient does have gastroparesis and easily chokes on food, was scheduled to have a feeding tube placed at [facility] April 03 but was postponed and she already resumed her Coumadin since then. Patient reports she is not on any special food and takes regular food. Patient denies fever, acute changes in bowel or bladder habit. Patient denies smoking tobacco/use of further tobacco/use of illegal drugs or marijuana. Patient reports having alcoholic drink 1-2 times a year. 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 Family history positive for some kind of heart disease in her grandfather from her dad side but patient not sure of age and nature of the disease. Also re ports lung cancer in the same grandfather. Grandfather from mother side with leukemia. Grandmother with right breast cancer and melanoma. Full code Admission Exam Per Admitting Provider Physical Exam: GENERAL: Alert and oriented x3. NAD, on RA. HEENT: No pallor, no icterus. Pupils equal, round and reactive to light. Oral mucosa moist. NECK: No JVD, no neck masses. HEART: S1 and S2 heard. Regular rate and rhythm. No murmur, no gallop. RESPIRATORY SYSTEM: Normal AP diameter. No accessory muscle use. No wheezing, no crackles. ABDOMEN: Soft, bowel sounds present,nontender/no grimacing noted, no distention. CENTRAL NERVOUS SYSTEM: No facial droop. Speech is clear. Obeys simple commands. Moves extremities. EXTREMITIES: No edema, no erythema seen. Principal Diagnosis Chest pain-no ACS, asymptomatic bradycardia, history of pulmonary embolism myotonic muscular dystrophy Discharge Exam Lying in bed comfortably Constitutional well developed, well nourished and average body habitus; not ill appearing Eyes PERRL, conjunctivae normal, anicteric sclerae ENMT external ear and nose normal, oropharynx normal Neck trachea midline, no thyromegaly Respiratory no respiratory distress Auscultation: + diminished lung sounds and + crackles (Bibasilar crackles more on the left than the right side) Cardiovascular Rate/Rhythm: regular rate, regular rhythm and + bradycardic Heart Sounds: normal S1, normal S2 and + murmur (1/6 ESM over precordium) Extremities: + edema (Trace edema bilaterally) Gastrointestinal (Abdomen) Inspection/Auscultation: + abdomen distended and normal bowel sounds Percussion/Palpation: + abdomen tender (Mildly tender all over but more tenderness in hypogastrium) and abdomen soft Neurologic normal touch/pain/proprioception and moves all extremities Psychiatric A+Ox3, euthymic affect Lymphatic no cervical or axillary lymphadenopathy Discharge Data Allergies Allergy/AdvReac Type Severity Reaction Status Date / Time hydrocodone Allergy Severe RASH, Verified 12/27/21 17:15 FACIAL/TONGUE SWELLING oxycodone [From Percocet] Allergy Severe Rash, Verified 12/27/21 17:15 faciaL/tongue swelling Penicillins Allergy Intermediate Rash Verified 12/27/21 17:15 chicken derived Allergy Mild GI ISSUES Verified 12/27/21 17:15 mold Allergy Unknown Unknown Verified 12/27/21 17:15 azithromycin AdvReac Severe VOMITING Verified 12/27/21 17:15 Consultations 04/11/22 12:35 ED Decision to Admit Stat Ordered Studies 04/12/22 11:05 CT head/brain wo con Urgent 04/12/22 14:47 CT angio chest PE protocol Urgent Hospital Course (1) Chest pain: Patient presented with complaint of epigastric pain and mid chest pain started yesterday evening, aggravated with drinking water/curling up/breathing, not sure about relationship with activity. Patient reports choking on food, denies being on any special diet, was scheduled to have feeding tube placement on April 03 at [facility], it was postponed and patient resumed her Coumadin for h/o bilateral PE/coagulopathy. Patient does report having nausea and vomiting every 2 weeks while she is not choking on food but vomits with choking Initial troponin was mildly elevated but subsequent troponin did not show any evidence of ACS Still has nonspecific chest pain without any EKG changes No more chest pain and/or palpitation Her heart rate remains at around 60s Asymptomatic bradycardia EKG this morning showed a rate of 45 with sinus rhythm Did not have any symptoms Heart rate is going up to 70 as of now Will monitor while in the hospital as myotonia can cause conduction problem in the heart Heart rate remains around 60 No more bloody arrhythmias (2) Pulmonary embolism: History of factor V Leiden and pulmonary embolism Has been on Coumadin but unfortunately INR is 1.0 Still has very nonspecific symptoms Has been getting Lovenox and Coumadin restarted We will get a CTA to rule out pulmonary embolism CTA did not show any pulmonary embolism Has been getting Coumadin which will be supervised today Check INR-continue Lovenox INR is 1.2 and she will go home on Lovenox and INR She has the Lovenox at home and she used it before and knows how to use it (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 Likely GERD flare-up on the background of gastroparesis and GERD Trend troponin, if uptrending or new chest pain with EKG changes, consider cardiology consult. EKG in AM. Tums, PPI, monitor for symptom improvement. Telemetry monitoring. Aspiration precaution. #. Other chronic medical conditions: History of bilateral PE, factor V Leiden mutation, orthostatic hypotension, chronic bilateral low back pain without sciatica Continue with/resume home meds as and when appropriate. INR 0.9 at admission, lovenox until INR therapeutic. Medications reviewed with the patient: Patient takes melatonin 10 mg daily at bedtime, Tylenol for pain, methocarbamol 500 mg up to 4 times a day for muscle spasm, warfarin 4 mg daily but 8 mg on Sundays, fluoxetine 20 mg daily, midodrine 2.5 mg twice daily, Zofran 4 mg every 8 hour as needed for nausea, gabapentin 300 mg a.m., 400 mg afternoon, 300 mg p.m. #. DVT prophylaxis: Patient on warfarin #. Full code We will get PT and OT evaluation and possible discharge tomorrow on Lovenox and Coumadin Discharged home this afternoon Total Time Total Time Spent Total Time Spent (In Minutes): 35 minutes Discharge Plan Discharge Items Patient Disposition: Home - Self-Care Reason For Visit: chest pain Discharge Diagnosis: Chest pain-no ACS, asymptomatic bradycardia, history of pulmonary embolism myotonic muscular dystrophy Condition on Discharge: Good Activity: Resume your previous activity Non-emergency contact: Primary Care Provider Call non-emergency contact if: you have any medication questions and your sym ptoms worsen Follow-up/Referrals: Chuckie Judge MD [Primary Care Provider] - (Date & Time 04/18/2022 11:00 AM Provider Chuckie Judge MD Department Family [facility] ) Diet: Regular Diet Texture: Easy to Chew Addtl Attending Provider Instructions: Please take precautions to avoid falls. You will need to take Lovenox 90 mg subcu daily and Coumadin 8 mg daily for a few days Please have follow-up with your Coumadin clinic in a day or 2 to stop Lovenox and continue with Coumadin when appropriate to maintain INR between 2-3 Please have follow-up with your primary care provider Pending Studies at Discharge: No Stand-Alone Forms: My Qwiki, Smoking Cessation Medications and DC Order Prescriptions: New pantoprazole 40 mg Tablet,Delayed Release (Dr/Ec) 40 mg PO DAILY 30 Days Qty: 30 0RF midodrine 2.5 mg Tablet 2.5 mg PO DAILY@0900,1800 30 Days Qty: 60 0RF Continued warfarin 4 mg Tablet See Rx Instructions .ROUTE .COMPLEX Rx Instructions: 4 mg orally takes qam; TAKES 4 MG ON MON, WED, & FRI. TAKES 8 MG ON SUN, TUES, THURS, & SAT. DIRECTED TO TAKE BY ANTICOAGULATION CLINIC/MD acetaminophen 500 mg Tablet 1,000 mg PO Q6H PRN (Reason: Pain) fluoxetine 20 mg capsule 20 mg PO QAM melatonin 10 mg Tablet 10 mg PO HS methocarbamol 500 mg tablet 500 mg PO QID PRN (Reason: MUSCLE SPASMS) Rx Instructions: PER PT "TAKE QAM, QPM & HS". gabapentin 300 mg capsule 300 mg PO QAM Cbd Cream 1 applic PO TID PRN (Reason: Pain) Delta 8 1 dose PO DIRECTED PRN (Reason: Pain) Rx Instructions: GUMMY Discharge Orders: Discharge Order (Routine); Ordered 04/14/22 Ordered By: Sosa Gore Admission Data Admit Date/Time: 04/13/22 13:59 Attending Provider: Sosa Gore Admit Provider: Rosa Rice Primary Care Provider: Chuckie Judge Other Providers: Rosa Rice Other Interventions: Discharge Summary Assessment (RN) Last Done: 04/14/22 12:58
== END 2022-04-14 13:25 | disposition home or self-care (01) | DRG 392 ==
LOC: 2N 10:56 → ED 10:56 → SUATTDRO 13:40 → 2N 14:29

== ENCOUNTER 2022-11-13 07:50 | Inpatient (IN) ==
--- NOTE | 2022-11-07 14:32 | Anesthesiology Consultation ---
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 History Surgery Operation Date: 11/13/22 09:15 Proposed Procedures p Colonoscopy Dr Devin Beltran, Height/Weight Height: 4 ft 8 in Weight: 65.317 kg Allergies Allergy/AdvReac Type Severity Reaction Status Date / Time hydrocodone Allergy Severe RASH, Verified 11/07/22 11:09 FACIAL/TONGUE SWELLING Penicillins Allergy Intermediate Rash Verified 11/07/22 11:09 mold Allergy Unknown Unknown Verified 11/07/22 11:09 azithromycin AdvReac Severe VOMITING Verified 11/07/22 11:09 chicken derived AdvReac Intermediate GI ISSUES Verified 11/07/22 11:09 Medications Home Medications Medication Instructions Recorded Confirmed Last Taken fluoxetine 20 mg capsule 20 mg PO QAM 10/06/18 11/07/22 11/02/22 warfarin 4 mg tablet See Rx Instructions .Route .COMPLEX 05/30/19 11/07/22 11/02/22 acetaminophen 500 mg tablet 1,000 mg PO Q6H PRN Pain 08/09/19 11/07/22 08/17/21 melatonin 10 mg tablet 10 mg PO HS 04/26/20 11/07/22 11/02/22 Cbd Cream 1 applic PO TID PRN Pain 11/22/21 11/07/22 Unknown pregabalin 75 mg capsule 75 mg PO BID 11/03/22 11/07/22 11/02/22 midodrine 2.5 mg tablet 2.5 mg PO TID 11/07/22 11/07/22 Unknown pantoprazole 40 mg tablet,delayed 40 mg PO QAM 11/07/22 11/07/22 Unknown release Past Medical History Medical History Anxiety Borderline personality disorder Chronic back pain Clinical depression 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 Pulmonary embolism (08/15/12) B/L (2010); diagnosed with Factor V Leiden- on warfarin Past Family History Family History Father Myotonic muscular dystrophy Grandfather (Paternal) Myotonic muscular dystrophy Brother Myotonic muscular dystrophy Grandmother (Paternal) Myotonic muscular dystrophy Other Cancer Hypertension Past Surgical History Surgical History H/O exploratory laparotomy + OVARIAN CYST REMOVAL; Exploratory lap: 01/15/17: Grade view 1, MAC#3, ETT 7.0 + TAP block at [facility] History of adenoidectomy History of blepharoplasty x2 History of cataract surgery History of cholecystectomy History of cystoscopy History of esophagogastroduodenoscopy (EGD) History of tonsillectomy Hx of lumpectomy RIGHT Slow to wake up after anesthesia Social History Smoking Status: Never smoker Do You Dip or Chew Tobacco: No Hx Alcohol Use: Yes Alcohol type: wine alcohol intake frequency: holidays/special occasions only Hx Substance Use: No substance use type: does not use Lab Results Anesthesia Preop Results Results Anesthesia Widget: WBC 5.18 K/ul (4.8-10.8) 11/03/22 Hgb 14.0 g/dl (12.0-16.0) 11/03/22 Hct 44.5 % (37.0-47.0) 11/03/22 Plt 123 K/uL (130-400) L 11/03/22 Na 141 mmol/L (136-145) 11/03/22 K TNP 11/03/22 Cl 109 mmol/L (98-107) H 11/03/22 CO2 30 mmol/L (21-32) 11/03/22 BUN 14 mg/dl (6-23) 11/03/22 Creat 0.56 mg/dl (0.6-1.2) L 11/03/22 Glucose Level 104 mg/dl (70-99(Fasting)) H 11/03/22 PT 10.4 Seconds (9.0-12.0) 11/03/22 INR 1.0 (0.9-1.1) 11/03/22 Blood Type A Positive 11/03/22 Antibody Screen NEGATIVE 11/03/22 Testing Electrocardiogram Date: 05/15/22 Findings: + SB @ (54) Sinus bradycardia Cannot rule out Anterior infarct , age undetermined Nonspecific T wave abnormality Abnormal ECG When compared with ECG of 12-APR-2022 05:39, No significant change was found Confirmed by Griffin Turner ([id number]) on 05/17/2022 6:04:55 AM Chest X-Ray Date: 04/11/22 IMPRESSION: Mild interstitial coarsening of the lung bases, likely atelectasis.
--- NOTE | 2022-11-13 08:27 | History & Physical Report ---
Date of Service November 13, 2022 Assessment & Plan (1) Colon cancer screening: Plan: Patient referred for evaluation of abdominal discomfort, given the persistent symptoms we are planning to do colonoscopy today the risks to include bleeding infection perforation pain, missed colonic polyps and need for follow-up studies. History of Present Illness Chief Complaint: colon cancer screening Primary Care Provider: Chuckie Judge MD Sherita Davidson is a 46 year old female who presents to our office for evaluation of abdominal discomfort localizing to her left hand side. Patient has multiple medical problems and is presently followed by [facility] for her history of gastroparesis. The patient notes that she was recently seen by their service and told to try use of MiraLax for constipation. Of note the patient notes that she has had minimal improvement with this. The abdominal discomfort is described as a cramping like sensation and fullness not necessarily relieved with bowel movements. There is no family history of colon cancer, stomach cancer, the patient has never undergone a colonoscopy and has undergone several upper endoscopies in the past Allergies Allergy/AdvReac Type Severity Reaction Status Date / Time hydrocodone Allergy Severe RASH, Verified 11/13/22 08:21 FACIAL/TONGUE SWELLING Penicillins Allergy Intermediate Rash Verified 11/13/22 08:21 mold Allergy Unknown Unknown Verified 11/13/22 08:21 azithromycin AdvReac Severe VOMITING Verified 11/13/22 08:21 chicken derived AdvReac Intermediate GI ISSUES Verified 11/13/22 08:21 Home Medications Medication Instructions Recorded Confirmed Type fluoxetine 20 mg capsule 20 mg PO QAM 10/06/18 11/13/22 History warfarin 4 mg tablet See Rx Instructions .Route .COMPLEX 05/30/19 11/13/22 History acetaminophen 500 mg tablet 1,000 mg PO Q6H PRN Pain 08/09/19 11/07/22 History melatonin 10 mg tablet 10 mg PO HS 04/26/20 11/13/22 History Cbd Cream 1 applic PO TID PRN Pain 11/22/21 11/07/22 History pregabalin 75 mg capsule 75 mg PO BID 11/03/22 11/13/22 History midodrine 2.5 mg tablet 2.5 mg PO TID 11/07/22 11/13/22 History pantoprazole 40 mg tablet,delayed 40 mg PO QAM 11/07/22 11/13/22 History release Past Med/Surg History Medical History Anxiety Borderline personality disorder Chronic back pain Clinical depression 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 Pulmonary embolism (08/15/12) B/L (2010); diagnosed with Factor V Leiden- on warfarin Surgical History H/O exploratory laparotomy + OVARIAN CYST REMOVAL; Exploratory lap: 01/15/17: Grade view 1, MAC#3, ETT 7 .0 + TAP block at [facility] History of adenoidectomy History of blepharoplasty x2 History of cataract surgery History of cholecystectomy History of cystoscopy History of esophagogastroduodenoscopy (EGD) History of tonsillectomy Hx of lumpectomy RIGHT Slow to wake up after anesthesia Family History Father Myotonic muscular dystrophy Grandfather (Paternal) Myotonic muscular dystrophy Brother Myotonic muscular dystrophy Grandmother (Paternal) Myotonic muscular dystrophy Other Cancer Hypertension Social History Smoking Status: Never smoker Second Hand Exposure: No; Do You Dip or Chew Tobacco: No; Tobacco Cessation Education Requested by Patient: No Hx Alcohol Use: Yes Alcohol type: wine Hx Substance Use: No Preferred Language: Frisian Communication Ability: Effective Visual Impairment: No Limitations Appraiser Timber Required: No Beliefs That Will Affect Care: None marital status: Single Current Living Situation: Spouse current occupational status: unemployed Other Information That Helps Us Care for You: No Feels Safe at Home: Yes Safety Concerns: Feels Safe At This Time Assistive Devices: Cane Assistive Devices Comment: uses cane prn Physical Exam Eyes: PERRL, conjunctivae normal, anicteric sclerae ENMT: external ear and nose normal, oropharynx normal Respiratory: Auscultation: no diminished lung sounds, no crackles and no rales Cardiovascular: Heart Sounds: + murmur; no click and no gallop Gastrointestinal (Abdomen): normal bowel sounds, soft, nontender, no hepatosplenomegaly
[2022-11-13] MEDS ORDERED: ATROPINE SULFATE 0.1 MG/ML 10ML SYR IV PRN (08:41)
[2022-11-13] MEDS ORDERED: ePHEDrine sulfate 50 MG/ML AMP IV PRN (08:41)
[2022-11-13] MEDS ORDERED: LIDOCAINE 2% MPF LOCAL 5 ML VIAL INFIL ONE ×2 (08:50→08:55)
[2022-11-13] MEDS ORDERED: PROPOFOL IV EMULSION 10 MG/ML 20 ML VIAL IV ONE ×2 (08:50→08:55)
[2022-11-13] MEDS ORDERED: MIDAZOLAM HCL 1 MG/ML 2ML VIAL ONE (08:59)
[2022-11-13] MEDS ORDERED: ENDOSCOPIC MARKER 5 ML SYR TOP ONE (09:17)
--- NOTE | 2022-11-13 09:29 | GI REPORT ---
Patient Name: Sherita Davidson Procedure Date: 11/13/2022 9:01 AM Date of : 1975 Admit Type: Outpatient Age: 46 Gender: Female Attending MD: Dg Beltran DO, Procedure: Colonoscopy Providers: Dg Beltran DO Referring MD: Chuckie Judge Indications: Screening for colorectal malignant neoplasm, Incidental abdominal pain noted, Incidental change in bowel habits noted Medicines: Monitored Anesthesia Care Complications: No immediate complications. Estimated blood loss: Minimal. Estimated Blood Loss: Estimated blood loss was minimal. Procedure: Pre-Anesthesia Assessment: - Prior to the procedure, a History and Physical was performed, and patient medications, allergies and sensitivities were reviewed. The patient's tolerance of previous anesthesia was reviewed. - The risks and benefits of the procedure and the sedation options and risks were discussed with the patient. All questions were answered and informed consent was obtained. - Patient identification and proposed procedure were verified prior to the procedure by the physician, the nurse and the photo tube assembler. The procedure was verified in the procedure room. - Pre-procedure physical examination revealed no contraindications to sedation. - ASA Grade Assessment: III - A patient with severe systemic disease. - After reviewing the risks and benefits, the patient was deemed in satisfactory condition to undergo the procedure. - The anesthesia plan was to use monitored anesthesia care (MAC). - Immediately prior to administration of medications, the patient was re-assessed for adequacy to receive sedatives. - The heart rate, respiratory rate, oxygen saturations, blood pressure, adequacy of pulmonary ventilation, and response to care were monitored throughout the procedure. - The physical status of the patient was re-assessed after the procedure. After I obtained informed consent, the scope was passed under direct vision. Throughout the procedure, the patient's blood pressure, pulse, and oxygen saturations were monitored continuously. The Colonoscope was introduced through the anus and advanced to the terminal ileum. The colonoscopy was performed without difficulty. The patient tolerated the procedure well. The quality of the bowel preparation was good. The terminal ileum, the ileocecal valve, the appendiceal orifice and the rectum were photographed. Findings: The perianal and digital rectal examinations were normal. Pertinent negatives include normal sphincter tone. The terminal ileum appeared normal. Normal mucosa was found in the entire colon. Biopsies were taken with a cold forceps for histology. The pathology specimen was placed into Bottle A. Estimated blood loss was minimal. One 8 mm submucosal nodule was found in the descending colon. Biopsies were taken with a cold forceps for histology. Area was tattooed with an injection of 1 mL of Spot (carbon black). Estimated blood loss was minimal. Internal hemorrhoids were found during retroflexion. The hemorrhoids were mild. The exam was otherwise without abnormality. Impression: - The examined portion of the ileum was normal. - Normal mucosa in the entire examined colon. Biopsied. - Submucosal nodule in the descending colon. Biopsied. Tattooed. - Internal hemorrhoids. - The examination was otherwise normal. Recommendation: - The patient will be observed post-procedure, until all discharge criteria are met. - Advance diet as tolerated today. - Await pathology results. - Repeat colonoscopy in 10 years for surveillance based on pathology results. Dg Beltran D.O. Dg Beltran, 11/13/2022 9:29:18 AM This report has been signed electronically. Note Initiated On: 11/13/2022 9:01 AM Number of Addenda: 0 I attest to the content of the Intraoperative Record and orders documented therein, exceptions below {[id number]}
[2022-11-13] MEDS ORDERED: ALBUTEROL 0.083% NEBU SOLN 3 ML VIAL NEB STA ×2 (10:05→12:52)
--- NOTE | 2022-11-13 10:46 | XRay Report ---
XR chest 1V portable HISTORY: 46 years-old Female possible aspiration acute cough with aspiration COMPARISON: CTA chest 04/12/2022 TECHNIQUE: AP view of the chest FINDINGS: Cardiac silhouette is enlarged. No pneumothorax. Small left pleural effusion with mild bibasilar dens ities. Pulmonary vascular congestion. Degenerative changes of the shoulders and spine. IMPRESSION: 1. Cardiomegaly with pulmonary vascular congestion. 2. Probable small left pleural effusion. 3. Mild bibasilar opacities favor atelectasis. ACT 112: Negative or not required by law. The above report was generated using voice recognition software. It may contain grammatical, syntax o r spelling errors. Electronically signed by: Miguel Angel Miranda M.D. 11/13/2022 10:45 AM
--- NOTE | 2022-11-13 11:07 | Anesthesiology Progress Note ---
Date of Service November 13, 2022 Anesthesia Post Procedure Vital Signs Vital Signs: Temp Pulse Resp BP Pulse Ox O2 Del Method O2 Flow Rate 11/13/22 10:19 85 18 91 Nasal Cannula 3 11/13/22 10:52 107 H 18 88 L Room Air 3 11/13/22 10:37 110 H 18 108/74 90 Nasal Cannula 3 11/13/22 10:22 98 H 18 79/58 L 93 Room Air 3 11/13/22 10:06 85 18 112/74 91 Room Air 3 11/13/22 09:52 94 H 18 124/75 93 Room Air 5 11/13/22 09:37 90 18 123/73 94 Nasal Cannula 5 11/13/22 08:24 36.4 C L 63 16 118/77 93 Room Air Transfer of Care Handoff Completed per policy Notes Mental Status: alert / awake / arousable Nausea / Vomiting: adequately controlled Pain: adequately controlled Airway Patency, RR, SpO2: see Notes below BP & HR: stable & adequate Hydration State: stable & adequate Anesthetic Complications: no major complications apparent Notes: Patient had uneventful colonoscopy w/sedation. At the end of the procedure, the pt. started coughing and wretching producing mucous and some bilious material that may have been aspirated. Patient has been coughing in PACU w/ some episodes of desaturations. Chest was auscultated and upper lung zones were course w/ wheezes and rhonchi. Lower lung zones were diminished. Pt was administered an albuterol hand held nebulizer TX w/ some relief stated by Pt.,but breath sounds remained the same. CXR was performed and showed some pulmonary vascular congestion,small pleural effusion and basilar atelectasis. This was discussed w/ Dr Dg eBltran and he was in agreement that the pt. be admitted by [facility], and this was discussed w/ patient who is in agreement.
--- NOTE | 2022-11-13 11:49 | Communication Note ---
Date of Service: November 13, 2022 Shortly after completion of the colonoscopy, the patient appeared to aspirate prior to reemergence from sedation. She was monitored in the recovery area however her oxygen saturation remained at approximately 89% on oxygen supplementation. Thus overnight admission has been recommended for monitoring of the patient. We would also suggest empiric coverage with broad-spectrum antibiotics for 5 days. Case was discussed with the internal medicine service and the anesthesia service were in agreement with the above plan.
[2022-11-13] MEDS ORDERED: FUROSEMIDE INJ 20 MG/2 ML VIAL IV ONE (13:00)
[2022-11-13] MEDS ORDERED: ACETAMINOPHEN 500 MG TAB PO PRN (13:06)
[2022-11-13] MEDS ORDERED: ALBUTEROL 0.083% NEBU SOLN 3 ML VIAL NEB PRN (13:10)
--- NOTE | 2022-11-13 13:14 | History & Physical Report ---
Date of Service November 13, 2022 Assessment & Plan (1) Aspirated gastric contents in lower respiratory tract: (2) S/P colonoscopy: (3) Heterozygous Factor V Leiden mutation: (4) Pulmonary embolism: (5) Myotonic muscular dystrophy: Plan Aspirated gastric contents and lower respiratory distress Status post colonoscopy Admit to PCU Titrate oxygen as needed Aggressive pulmonary toilet with incentive spirometry, flutter valve and nebulizer treatments Obtain CBC, BMP, lactic acid, procalcitonin and ABG Chest x-ray ordered and reveals a small of pleural effusion mild vascular congestion Give Lasix 20 mg x 1 now IV Levaquin 750 once daily and IV Flagyl 500 mg every 8 for aspiration due to history of penicillin allergy Consult speech History of PE Factor V Leiden mutation heterozygote After discussion with pharmacist we will hold warfarin for now and just treat with Lovenox Patient currently on Levaquin and Flagyl which can have profound effects on INR. Per [facility] pharmacy Coumadin 8 mg daily for 3 days (starting day of procedure) and then resume normal dosing of 8 mg Thursday and and 4 mg all other days Start Lovenox 2/10 at 8 AM 60 mg every 12 until INR greater than [address] Beltran and he is okay with resuming Lovenox tomorrow Orthostatic hypotension Patient reports chronic low blood pressure Continue midodrine Myotonic muscular dystrophy Depression with anxiety Bipolar disorder Small fiber neuropathy Continue all other home meds DVT prophylaxis Lovenox/warfarin Dispo: Patient to remain hospitalized due to concern for aspiration postoperatively, discharge to home when medically stable Full code PCP: Dr. Judge Patient was seen and examined in collaboration with Dr. Romano, please see addendum A total of 75 minutes were spent with greater than 50% of that time face to face with the patient, personally reviewing all current laboratories, imaging studies, past medication reconciliation, outpatient chart review, and discussion with specialists to collaborate care for the patient with attending. Please see attending documentation for corrections and/or additions. History of Present Illness Chief Complaint: Aspiration during colonoscopy. Primary Care Provider: Chuckie Judge MD This is a 46-year-old female who has significant past medical history of history of PE in setting factor V Leiden mutation on chronic warfarin therapy, myotonic muscular dystrophy, PFO, orthostatic hypotension, GERD, gastroparesis, small fiber neuropathy, depression with anxiety and borderline personality disorder who presented today for elective colonoscopy. Shortly after completing colonoscopy the patient appeared to aspirate a small amount of bilious material prior to reemergence from sedation. She was hypoxic requiring oxygen supplementation. Her lungs were coarse despite albuterol neb treatment. She was recommended for overnight admission due to current condition. She denies this happening in the past. Currently she does have a moist cough. She also complains of chills and right leg pain. Right leg pain is chronic for her and she is asking for Dilaudid. She tells me her blood pressure is typically on the lower side. She denies any fever or sweats, lightheadedness or dizziness, chest pain, shortness of breath at rest, abdominal pain. She does complain of nausea. Her colonoscopy revealed normal mucosa in the entire examined colon, submucosal nodule in descending colon which was biopsied and internal hemorrhoids. Examination was otherwise normal. Exam was completed by Dr. Beltran. Patient was currently on a Lovenox bridge due to her history of factor V Leiden and PE. Her last dose of Lovenox was yesterday morning. She will resume this tomorrow. Allergies Allergy/AdvReac Type Severity Reaction Status Date / Time hydrocodone Allergy Severe RASH, Verified 11/13/22 08:21 FACIAL/TONGUE SWELLING Penicillins Allergy Intermediate Rash Verified 11/13/22 08:21 mold Allergy Unknown Unknown Verified 11/13/22 08:21 mushroom Allergy Verified 11/13/22 15:54 azithromycin AdvReac Severe VOMITING Verified 11/13/22 08:21 chicken derived AdvReac Intermediate GI ISSUES Verified 11/13/22 08:21 Home Medications Medication Instructions Recorded Confirmed Type fluoxetine 20 mg capsule 20 mg PO QAM 10/06/18 11/13/22 History warfarin 4 mg tablet 8 mg PO SUTUTH@1600 05/30/19 11/13/22 History acetaminophen 500 mg tablet 1,000 mg PO Q6H PRN Pain 08/09/19 11/07/22 History melatonin 10 mg tablet 10 mg PO HS 04/26/20 11/13/22 History Cbd Cream 1 applic PO TID PRN Pain 11/22/21 11/07/22 History pregabalin 75 mg capsule 75 mg PO BID 11/03/22 11/13/22 History midodrine 2.5 mg tablet 2.5 mg PO TID 11/07/22 11/13/22 History pantoprazole 40 mg tablet,delayed 40 mg PO QAM 11/07/22 11/13/22 History release levofloxacin 750 mg tablet 750 mg PO DAILY 5 days #5 tabs 11/13/22 Rx warfarin 4 mg tablet 4 mg PO MOWEFRSA@1600 11/13/22 11/13/22 History Past Med/Surg History Medical History Anxiety Borderline personality disorder Chronic back pain Clinical depression 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 Pulmonary embolism (08/15/12) B/L (2010); diagnosed with Factor V Leiden- on warfarin Surgical History H/O exploratory laparotomy + OVARIAN CYST REMOVAL; Exploratory lap: 01/15/17: Grade view 1, MAC#3, ETT 7.0 + TAP block at [facility] History of adenoidectomy History of blepharoplasty x2 History of cataract surgery History of cholecystectomy History of cystoscopy History of esophagogastroduodenoscopy (EGD) History of tonsillectomy Hx of lumpectomy RIGHT Slow to wake up after anesthesia Family History Father Myotonic muscular dystrophy Grandfather (Paternal) Myotonic muscular dystrophy Brother Myotonic muscular dystrophy Grandmother (Paternal) Myotonic muscular dystrophy Other Cancer Hypertension Social History Smoking Status: Never smoker Second Hand Exposure: No; Do You Dip or Chew Tobacco: No; Tobacco Cessation Education Requested by Patient: No Hx Alcohol Use: Yes Alcohol type: wine Hx Substance Use: No Preferred Language: Czech Communication Ability: Effective Visual Impairment: No Limitations Weave Room Supervisor Required: No Beliefs That Will Affect Care: None marital status: Single Current Living Situation: Spouse current occupational status: unemployed Other Information That Helps Us Care for You: No Feels Safe at Home: Yes Safety Concerns: Feels Safe At This Time Assistive Devices: Cane Assistive Devices Comment: uses cane prn Review of Systems Review of Systems: All systems reviewed & are unremarkable except as noted in HPI & below Physical Exam Physical Exam: Constitutional: WD/WN, F, lying in L lateral decub position, vitals as above, NAD, sitting up in bed, answers questions appropriate Head: Normocephalic, Atraumatic Eyes: PERRL, conjunctivae normal, anicteric sclerae ENMT: external ear and nose normal, oropharynx normal Neck: trachea midline, no thyromegaly normal visual inspection Respiratory: Increased respiratory effort on 4 L of oxygen nasal cannula, coarse breath sounds throughout with wheeze and rhonchi, no rales. No accessory muscle use Cardiovascular: Tachycardic rate, regular rhythm, no murmur, no edema Vessels: no JVD or carotid bruit Chest: normal inspection of chest Abdomen: normal bowel sounds, soft, nontender, no hepatosplenomegaly Musculoskeletal: no cyanosis or clubbing, extremities motor strength 5/5 Skin: no rashes, warm and dry normal turgor Neurologic: PERRL, EOMI, accommodation nl, no face palsy, no dysarthria CN's II-XI intact bilaterally and moves all extremities Psychiatric: A+Ox3, euthymic affect Lymphatic: no cervical or axillary lymphadenopathy : deferred Results & Data Results & Data ([facility]) Vital Signs (Past 12 Hours) Vital Signs Temp Pulse Resp BP Pulse Ox O2 Del Method O2 Flow Rate 11/13/22 12:26 117 H 18 110/82 91 Nasal Cannula 4 11/13/22 10:19 85 18 91 Nasal Cannula 3 11/13/22 11:20 101 H 18 73/61 L 91 Nasal Cannula 3 11/13/22 11:07 108 H 18 100/82 91 Nasal Cannula 3 11/13/22 10:52 107 H 18 88 L Room Air 3 11/13/22 10:37 110 H 18 108/74 90 Nasal Cannula 3 11/13/22 10:22 98 H 18 79/58 L 93 Room Air 3 11/13/22 10:06 85 18 112/74 91 Room Air 3 11/13/22 09:52 94 H 18 124/75 93 Room Air 5 11/13/22 09:37 90 18 123/73 94 Nasal Cannula 5 11/13/22 08:24 36.4 C L 63 16 118/77 93 Room Air Diagnostic Findings Chest X-Ray 11/13/22 10:15 XR chest 1V portable HISTORY: 46 years-old Female possible aspiration acute cough with aspiration COMPARISON: CTA chest 04/12/2022 TECHNIQUE: AP view of the chest FINDINGS: Cardiac silhouette is enlarged. No pneumothorax. Small left pleural effusion with mild bibasilar densities. Pulmonary vascular congestion. Degenerative changes of the shoulders and spine. IMPRESSION: 1. Cardiomegaly with pulmonary vascular congestion. 2. Probable small left pleural effusion. 3. Mild bibasilar opacities favor atelectasis. ACT 112: Negative or not required by law. The above report was generated using voice recognition software. It may contain grammatical, syntax or spelling errors. Electronically signed by: Miguel Angel Miranda M.D. 11/13/2022 10:45 AM Medications Administered Current Inpatient Medications Acetaminophen (Acetaminophen 500 Mg Tab) 1,000 mg PO Q6H PRN PRN Reason: Pain Stop: 12/13/22 13:05 Albuterol (Albuterol 0.083% Nebu Soln 3 Ml Vial) 2.5 mg NEB Q6R PRN; Protocol PRN Reason: sob/wheezing Stop: 12/13/22 13:09 Atropine Sulfate (Atropine Sulfate 0.1 Mg/Ml 10ml Syr) 0.5 mg IV Q1M PRN PRN Reason: PACU Use-HR<40 &/or Bradycardi Stop: 11/13/22 16:42 Enoxaparin Sodium (Enoxaparin Inj 60 Mg/0.6 Ml Syr) 60 mg SQ Q12H JESSY Stop: 12/14/22 07:59 Ephedrine Sulfate (Ephedrine Sulfate 50 Mg/Ml Amp) 5 mg IV Q5M PRN PRN Reason: PACU Use Only-SBP<90 mmHg Stop: 11/13/22 16:42 Fluoxetine HCl (Fluoxetine Hcl 20 Mg Cap) 20 mg PO QAM JESSY Stop: 12/14/22 08:59 Guaifenesin (Guaifenesin 600 Mg Tabcr) 1,200 mg PO Q12 JESSY Stop: 12/13/22 13:09 Metronidazole (Flagyl) 500 mg in 100 mls @ 100 mls/hr IV Q8H JESSY Stop: 11/20/22 13:14 Levofloxacin/Dextrose (Levaquin/D5w) 750 mg in 150 mls @ 100 mls/hr IV Q24H JESSY Stop: 11/20/22 13:14 Midodrine (Midodrine Hcl 2.5 Mg Tab) 2.5 mg PO TID JESSY Stop: 12/13/22 13:59 Non-Formulary Medication (Melatonin) 10 mg PO HS JESSY Stop: 12/13/22 20:59 Pantoprazole Sodium (Pantoprazole 40 Mg Tab) 40 mg PO QAM JESSY Stop: 12/14/22 08:59 Pregabalin (Pregabalin 75 Mg Cap) 75 mg PO BID JESSY Stop: 12/13/22 20:59 Warfarin Sodium (Warfarin Sod 4 Mg Tab) 8 mg PO DAILY@1600 JESSY Stop: 11/15/22 16:01 Code Status & VTE Plan Code Status Full code VTE Prophylaxis Plan VTE Prophylaxis will be ordered: Yes Supervising Physician Co-Signing Physician Notes Patient is a 46-year-old female with history of PE, muscular dystrophy and other medical problems who was planned for elective elective colonoscopy today, had aspirated after the procedure. Patient was hypoxic postprocedure and complained of productive cough, mild dyspnea. Please review HPI for complete details of presentation. Blood work and imaging studies reviewed. On exam patient is moderately built and nourished, no apparent distress, normocephalic atraumatic, EOMI, coarse breath sounds, bilateral rhonchi, tachycardic, abdomen soft, nontender, alert, awake, oriented, grossly no focal deficits. Patient is admitted for management of acute respiratory failure with hypoxia secondary to aspiration post colonoscopy. Also noted to have hypokalemia. Chronic thrombocytopenia noted. Also has chronic hypotension on midodrine. Will start on IV broad-spectrum antibiotics, aspiration precautions speech therapy evaluation. Wean off supplemental oxygen as able. Monitor INR and resume Coumadin. I personally reviewed the record. Patient is interviewed and examined at bedside. Patient's care is coordinated with Marley Bass PA-C. Please refer to the documentation above for details of patient's presentation and for discussion of other issues.
[2022-11-13 14:14] LABS: Allen Test Pos (Pos); Base Excess ABG 1.5 mEq/L (-9-1.8); HCO3 ABG 27 mmol/L (19-24); Oxygen Saturation ABG 95.3 % (90-95); PCO2 ABG 46 mmHg (35-46); PO2 ABG 72 mmHg (80-95); pH ABG 7.38 (7.35-7.45)
[2022-11-13] MEDS ORDERED: HYDROmorphone INJ 0.5 MG/0.5 ML SYR IV STA (14:27)
[2022-11-13 14:35] LABS: BUN Creatinine Ratio 12.3 (10-20); Calcium 9.3 mg/dl (8.5-10.1); Creatinine Clr Calc Pharmacy 95.6 ml/min; Est GFR (African American) 130.7 ml/min; Est GFR (Non-African American) 112.7 ml/min
[2022-11-13 14:37] LABS: Basophils # (auto) 0.01 K/uL (0-0.2); Basophils % (auto) 0.2 %; Eosinophils # (auto) 0.01 K/uL (0-0.50); Eosinophils % (auto) 0.2 %; Hematocrit (blood only) 41.3 % (37.0-47.0); Hemoglobin 13.4 g/dl (12.0-16.0); Immature Granulocytes # (auto) 0.02 K/uL (0.01-0.20); Immature Granulocytes % (auto) 0.5 %; Lymphocytes # (auto) 0.45 K/uL (1.2-3.4); Mean Corpuscular Hemoglobin 29.6 pg (25.0-34.0); Mean Corpuscular Hgb Conc 32.4 g/dL (32.0-36.0); Mean Corpuscular Volume 91.4 fL (80.0-100.0); Mean Platelet Volume 12.9 fL (9.4-12.4); Monocytes # (auto) 0.23 K/uL (0.11-0.59); Monocytes % (auto) 5.6 %; Neutrophils # (auto) 3.38 K/uL (1.40-6.50); Neutrophils % (auto) 82.5 %; Platelet Count 86 K/uL (130-400); Platelet Estimate Decreased (Normal); RDW Coefficient of Variation 15.9 % (11.5-14.5); RDW Standard Deviation 52.5 fL (36.4-46.3); Red Blood Count 4.52 M/uL (4.20-5.40)
[2022-11-13] MEDS: guaiFENesin 600 MG TABCR PO SCH ×3 (15:31→21:23)
[2022-11-13] MEDS: MIDODRINE HCL 2.5 MG TAB PO SCH ×2 (15:34→18:05)
[2022-11-13] MEDS: metroNIDAZOLE 500 MG/100 ML BAG IV SCH ×2 (15:35→21:24)
[2022-11-13] MEDS: levoFLOXacin/D5W 750 MG/150 ML BAG IV SCH (15:37)
[2022-11-13] MEDS ORDERED: POTASSIUM CHLORIDE CRTAB 20 MEQ TABCR PO STA ×2 (15:51→18:07)
[2022-11-13] MEDS ORDERED: WARFARIN SOD 4 MG TAB PO SCH ×2 (16:00)
[2022-11-13] MEDS: POTASSIUM CHLORIDE / WTR 10 MEQ/100 ML PLCT IV SCH ×2 (18:05→21:22)
[2022-11-13] MEDS: MELATONIN 3 MG TAB PO SCH (21:24)
[2022-11-13] MEDS: PREGABALIN 75 MG CAP PO SCH (21:26)
[2022-11-14 06:00] LABS: Basophils # (auto) 0.01 K/uL (0-0.2); Basophils % (auto) 0.1 %; Eosinophils # (auto) 0.02 K/uL (0-0.50); Eosinophils % (auto) 0.2 %; Hematocrit (blood only) 37.3 % (37.0-47.0); Hemoglobin 12.1 g/dl (12.0-16.0); Immature Granulocytes # (auto) 0.04 K/uL (0.01-0.20); Immature Granulocytes % (auto) 0.4 %; Lymphocytes # (auto) 0.92 K/uL (1.2-3.4); Lymphocytes % (auto) 9.9 %; Mean Corpuscular Hemoglobin 29.2 pg (25.0-34.0); Mean Corpuscular Hgb Conc 32.4 g/dL (32.0-36.0); Mean Corpuscular Volume 89.9 fL (80.0-100.0); Mean Platelet Volume 12.7 fL (9.4-12.4); Monocytes # (auto) 0.57 K/uL (0.11-0.59); Monocytes % (auto) 6.1 %; Neutrophils # (auto) 7.71 K/uL (1.40-6.50); Neutrophils % (auto) 83.3 %; Platelet Count 85 K/uL (130-400); RDW Coefficient of Variation 16.2 % (11.5-14.5); RDW Standard Deviation 53.5 fL (36.4-46.3); Red Blood Count 4.15 M/uL (4.20-5.40); White Blood Count 9.27 K/ul (4.8-10.8)
[2022-11-14 06:16] LABS: INR 1.3 (0.9-1.1); Prothrombin Time 13.3 Seconds (9.0-12.0)
[2022-11-14] MEDS: metroNIDAZOLE 500 MG/100 ML BAG IV SCH ×3 (06:32→21:18)
--- NOTE | 2022-11-14 08:16 | Electrocardiogram Report ---
Test Reason : Blood Pressure : / mmHG Vent. Rate : 099 BPM Atrial Rate : 099 BPM P-R Int : 168 ms QRS Dur : 070 ms QT Int : 400 ms P-R-T Axes : 065 002 052 degrees QTc Int : 513 ms Normal sinus rhythm Low voltage QRS Diffuse Minor Nonspecific T wave abnormality Borderline ECG When compared with ECG of 15-MAY-2022 20:23, Vent. rate has increased BY 45 BPM Confirmed by Chuckie Rico ([id number]) on 11/14/2022 8:16:27 AM Referred By: Dg Beltran Confirmed By:Cuhckie Rico
[2022-11-14] MEDS: ENOXAPARIN INJ 60 MG/0.6 ML SYR SQ SCH ×2 (08:40→21:14)
[2022-11-14] MEDS: FLUoxetine HCL 20 MG CAP PO SCH (08:41)
[2022-11-14] MEDS: PANTOprazole 40 MG TAB PO SCH (08:41)
[2022-11-14] MEDS: MIDODRINE HCL 2.5 MG TAB PO SCH ×3 (08:41→16:09)
[2022-11-14] MEDS: guaiFENesin 600 MG TABCR PO SCH ×2 (08:41→21:15)
[2022-11-14] MEDS: PREGABALIN 75 MG CAP PO SCH ×2 (08:42→21:22)
[2022-11-14 10:23] LABS: BUN Creatinine Ratio 12.1 (10-20); Creatinine Clr Calc Pharmacy 80.7 ml/min; Est GFR (African American) 124.5 ml/min; Est GFR (Non-African American) 107.4 ml/min; Potassium 4.1 mmol/L (3.5-5.1)
[2022-11-14] MEDS: levoFLOXacin/D5W 750 MG/150 ML BAG IV SCH (13:20)
[2022-11-14] MEDS ORDERED: WARFARIN SOD 5 MG TAB PO SCH (16:00)
[2022-11-14] MEDS ORDERED: WARFARIN SOD 4 MG TAB PO SCH ×2 (16:00)
--- NOTE | 2022-11-14 17:33 | Hospitalist Progress Note ---
Date of Service November 14, 2022 Assessment & Plan (1) Aspirated gastric contents in lower respiratory tract: (2) S/P colonoscopy: (3) Heterozygous Factor V Leiden mutation: (4) Pulmonary embolism: (5) Myotonic muscular dystrophy: Plan Aspiration Pneumonia Hypoxia Patient aspirated after colonoscopy likely secondary to anesthesia --CXR:Cardiomegaly with pulmonary vascular congestion. Probable small left pleural effusion. Mild bibasilar opacities favor atelectasis. Elevated procalcitonin -- Continue empiric antibiotics We will recheck chest x-ray tomorrow Continue pulmonary toilet Speech eval completed No issues with swallowing currently May need 2 step prior to discharge H/O PE Factor V Leiden mutation heterozygote Coumadin held for colonoscopy Subtherapeutic INR INR 1.3 today Continue Lovenox bridging to Coumadin Chronic thrombocytopenia Monitor platelets No bleeding issues Hypokalemia Replete electrolytes as able Orthostatic hypotension Continue midodrine Myotonic muscular dystrophy Depression with anxiety Bipolar disorder Small fiber neuropathy Continue home meds DVT Px: Lovenox/warfarin Code Status Full code Admission and Anticipated Discharge Date Admission Date: November 13, 2022 Subjective Patient is seen and examined at bedside Less cough today Dyspnea about the same as yesterday Also reports nausea but no vomiting No other complaints Review of Systems Review of Systems: All systems reviewed & are unremarkable except as noted in Subjective Physical Exam Physical Exam: Physical Exam: Vitals signs as noted above General Appearance:Moderately built and nourished, no apparent distress Head: normocephalic, Atraumatic Eyes: normal inspection, EOMI Neck: supple, Trachea midline Respiratory/Chest: Decreased breath sounds, CTA, No accessory muscle use Cardiovascular: S1, S2, No murmur Abdomen/GI:Soft, Non tender, Bowel sounds present Extremities/Musculoskeletal:normal inspection, no edema Neurologic/Psych:AAOX3, grossly no focal neurological deficits Skin: normal color, warm Results & Data Results & Data ([facility]) Vital Signs (Past 12 Hours) Vital Signs Temp Pulse Pulse Resp BP BP Pulse Ox 11/14/22 12:19 90 22 102/63 91 11/14/22 12:10 36.6 C 94 H 18 102/63 92 11/14/22 08:00 11/14/22 08:00 95 H 15 105/64 91 11/14/22 07:49 97 H 22 109/72 93 11/14/22 07:00 79 20 117/74 89 L 11/14/22 07:49 36.7 C O2 Del Method O2 Flow Rate 11/14/22 12:19 Nasal Cannula 11/14/22 12:10 Nasal Cannula 3 11/14/22 08:00 Nasal Cannula 2 11/14/22 08:00 Nasal Cannula 2 11/14/22 07:49 Nasal Cannula 2 11/14/22 07:00 Nasal Cannula 2 11/14/22 07:49 Laboratory Results Short CBC 11/14/22 Range/Units 05:44 WBC 9.27 (4.8-10.8) K/ul Hgb 12.1 (12.0-16.0) g/dl Hct 37.3 (37.0-47.0) % Plt Count 85 L (130-400) K/uL BMP 11/14/22 05:44 Sodium 139 Potassium 4.1 D Chloride 109 H Carbon Dioxide 28 BUN 8 Creatinine 0.66 Glucose 114 H Calcium 10.0 Cardiac Enzymes 11/14/22 Range/Units 05:44 Total Creatine Kinase 80 (26-192) U/L
[2022-11-14] MEDS: MELATONIN 3 MG TAB PO SCH (21:15)
[2022-11-15] MEDS: metroNIDAZOLE 500 MG/100 ML BAG IV SCH (05:47)
[2022-11-15 06:18] LABS: Hematocrit (blood only) 38.3 % (37.0-47.0); Hemoglobin 12.2 g/dl (12.0-16.0); Mean Corpuscular Hemoglobin 29.5 pg (25.0-34.0); Mean Corpuscular Hgb Conc 31.9 g/dL (32.0-36.0); Mean Corpuscular Volume 92.7 fL (80.0-100.0); Platelet Count 102 K/uL (130-400); RDW Coefficient of Variation 16.3 % (11.5-14.5); RDW Standard Deviation 55.8 fL (36.4-46.3); Red Blood Count 4.13 M/uL (4.20-5.40); White Blood Count 7.52 K/ul (4.8-10.8)
[2022-11-15 06:28] LABS: BUN Creatinine Ratio 12.7 (10-20); Calcium 9.9 mg/dl (8.5-10.1); Creatinine Clr Calc Pharmacy 84.6 ml/min; Est GFR (African American) 126.4 ml/min; Est GFR (Non-African American) 109.1 ml/min; Magnesium 2.2 mg/dl (1.7-2.4); Potassium 4.3 mmol/L (3.5-5.1)
[2022-11-15 06:39] LABS: INR 1.1 (0.9-1.1); Prothrombin Time 11.7 Seconds (9.0-12.0)
[2022-11-15] MEDS: ENOXAPARIN INJ 60 MG/0.6 ML SYR SQ SCH ×2 (07:39→20:35)
[2022-11-15] MEDS: MIDODRINE HCL 2.5 MG TAB PO SCH ×3 (07:39→16:28)
--- NOTE | 2022-11-15 07:43 | XRay Report ---
XR chest 1V portable CLINICAL HISTORY: Aspiration, Hypoxia COMPARISON STUDY: Chest CT April 12, 2022. Chest radiograph November 13, 2022. FINDINGS: Left basilar consolidation is again noted with slight improvement in lung aeration. There m ay be mild right infrahilar opacity which is unchanged. Small left pleural effusion is noted. No pneu mothorax. No evidence for pulmonary edema. IMPRESSION: 1. Slight improvement in left basilar consolidation. Mild right infrahilar opacity. The findings favo r pneumonia or aspiration pneumonitis. 2. Small left pleural effusion. ACT 112: Negative or not required by law. Electronically signed by: Eulogio Moya M.D. 11/15/2022 7:42 AM
[2022-11-15] MEDS: guaiFENesin 600 MG TABCR PO SCH (09:08)
[2022-11-15] MEDS: FLUoxetine HCL 20 MG CAP PO SCH (09:08)
[2022-11-15] MEDS: PANTOprazole 40 MG TAB PO SCH (09:08)
[2022-11-15] MEDS: PREGABALIN 75 MG CAP PO SCH ×2 (09:09→20:39)
[2022-11-15] MEDS: levoFLOXacin 750 MG TAB PO SCH (11:35)
[2022-11-15] MEDS: ADVANCED PROBIOTIC 1250 MG CAPSULE PO SCH (14:36)
[2022-11-15] MEDS: metroNIDAZOLE 500 MG TAB PO SCH ×2 (14:36→20:36)
[2022-11-15] MEDS: WARFARIN SOD 4 MG TAB PO SCH (16:28)
--- NOTE | 2022-11-15 17:08 | Hospitalist Progress Note ---
Date of Service November 15, 2022 Assessment & Plan (1) Aspirated gastric contents in lower respiratory tract: (2) S/P colonoscopy: (3) Heterozygous Factor V Leiden mutation: (4) Pulmonary embolism: (5) Myotonic muscular dystrophy: Plan Aspiration Pneumonia Hypoxia Patient aspirated after colonoscopy likely secondary to anesthesia --CXR:Cardiomegaly with pulmonary vascular congestion. Probable small left pleural effusion. Mild bibasilar opacities favor atelectasis. --Repeat CXR:Slight improvement in left basilar consolidation. Mild right infrahilar opacity. The findings favor pneumonia or aspiration pneumonitis. Small left pleural effusion. Elevated procalcitonin -- Continue empiric antibiotics: Levaquin, Flagyl Continue pulmonary toilet Speech eval completed No issues with swallowing currently May need 2 step prior to discharge Wean off of supplemental oxygen as able Diarrhea Likely secondary to antibiotics Check stool studies if recurrence H/O PE Factor V Leiden mutation heterozygote Coumadin held for colonoscopy Subtherapeutic INR INR 1.1 today Continue Lovenox bridging to Coumadin Increase Coumadin to 8 mg today Chronic thrombocytopenia Monitor platelets No bleeding issues Hypokalemia Replete electrolytes as able Orthostatic hypotension Continue midodrine Myotonic muscular dystrophy Depression with anxiety Bipolar disorder Small fiber neuropathy Continue home meds DVT Px: Lovenox/warfarin Code Status Full code Admission and Anticipated Discharge Date Admission Date: November 13, 2022 Subjective Patient is seen and examined at bedside Dyspnea much improved as per patient today States having some diarrhea Cough about the same as yesterday Off supplemental oxygen this morning Denies any chest pain, dizziness, nausea, abdominal pain No other complaints Review of Systems Review of Systems: All systems reviewed & are unremarkable except as noted in Subjective Physical Exam Physical Exam: Physical Exam: Vitals signs as noted above General Appearance:Moderately built and nourished, no apparent distress Head: normocephalic, Atraumatic Eyes: normal inspection, EOMI Neck: supple, Trachea midline Respiratory/Chest: Decreased breath sounds, CTA, No accessory muscle use Cardiovascular: S1, S2, No murmur Abdomen/GI:Soft, Non tender, Bowel sounds present Extremities/Musculoskeletal:normal inspection, no edema Neurologic/Psych:AAOX3, grossly no focal neurological deficits Skin: normal color, warm Results & Data Results & Data ([facility]) Vital Signs (Past 12 Hours) Vital Signs Temp Pulse Resp BP Pulse Ox O2 Del Method O2 Flow Rate 02/11/23 15:43 73 20 105/67 93 11/15/22 15:45 74 11/15/22 15:38 Room Air 11/15/22 08:00 Room Air 11/15/22 11:15 83 25 H 95/65 L 92 Nasal Cannula 5 11/15/22 07:31 60 21 101/60 93 Nasal Cannula 5 11/15/22 07:31 36.6 C 11/15/22 06:00 109 H 20 88 L Nasal Cannula 11/15/22 05:53 37.0 C Laboratory Results Short CBC 11/15/22 Range/Units 05:35 WBC 7.52 (4.8-10.8) K/ul Hgb 12.2 (12.0-16.0) g/dl Hct 38.3 (37.0-47.0) % Plt Count 102 L (130-400) K/uL BMP 11/15/22 05:35 Sodium 144 Potassium 4.3 Chloride 112 H Carbon Dioxide 29 BUN 8 Creatinine 0.63 Glucose 112 H Calcium 9.9
[2022-11-15] MEDS: MELATONIN 3 MG TAB PO SCH (20:36)
[2022-11-16 05:23] LABS: Hemoglobin 11.2 g/dl (12.0-16.0); Mean Corpuscular Hemoglobin 29.6 pg (25.0-34.0); Mean Corpuscular Volume 92.6 fL (80.0-100.0); Mean Platelet Volume 12.7 fL (9.4-12.4); Platelet Count 106 K/uL (130-400); RDW Coefficient of Variation 16.4 % (11.5-14.5); RDW Standard Deviation 55.9 fL (36.4-46.3); Red Blood Count 3.78 M/uL (4.20-5.40)
[2022-11-16 05:36] LABS: BUN Creatinine Ratio 15.8 (10-20); Calcium 9.8 mg/dl (8.5-10.1); Creatinine Clr Calc Pharmacy 93.5 ml/min; Est GFR (African American) 130.7 ml/min; Est GFR (Non-African American) 112.7 ml/min; Potassium 4.3 mmol/L (3.5-5.1)
[2022-11-16 05:49] LABS: INR 1.3 (0.9-1.1); Prothrombin Time 13.6 Seconds (9.0-12.0)
[2022-11-16] MEDS: MIDODRINE HCL 2.5 MG TAB PO SCH ×3 (07:58→15:02)
[2022-11-16] MEDS: ENOXAPARIN INJ 60 MG/0.6 ML SYR SQ SCH (07:58)
[2022-11-16] MEDS: FLUoxetine HCL 20 MG CAP PO SCH (07:58)
[2022-11-16] MEDS: ADVANCED PROBIOTIC 1250 MG CAPSULE PO SCH (07:59)
[2022-11-16] MEDS: metroNIDAZOLE 500 MG TAB PO SCH ×2 (07:59→14:05)
[2022-11-16] MEDS: PREGABALIN 75 MG CAP PO SCH (07:59)
[2022-11-16] MEDS: PANTOprazole 40 MG TAB PO SCH (07:59)
[2022-11-16] MEDS: levoFLOXacin 750 MG TAB PO SCH (11:02)
--- NOTE | 2022-11-16 14:21 | Hospitalist Progress Note ---
Date of Service November 16, 2022 Assessment & Plan (1) Aspirated gastric contents in lower respiratory tract: (2) S/P colonoscopy: (3) Heterozygous Factor V Leiden mutation: (4) Pulmonary embolism: (5) Myotonic muscular dystrophy: Plan Aspiration Pneumonia Hypoxia Patient aspirated after colonoscopy likely secondary to anesthesia --CXR:Cardiomegaly with pulmonary vascular congestion. Probable small left pleural effusion. Mild bibasilar opacities favor atelectasis. --Repeat CXR:Slight improvement in left basilar consolidation. Mild right infrahilar opacity. The findings favor pneumonia or aspiration pneumonitis. Small left pleural effusion. Elevated procalcitonin -- Continue empiric antibiotics: Levaquin, Flagyl Continue pulmonary toilet Speech eval completed No issues with swallowing currently 2 step: Needs 2 liters with activity Diarrhea Likely secondary to antibiotics Stool for C diff Negative H/O PE Factor V Leiden mutation heterozygote Coumadin held for colonoscopy Subtherapeutic INR INR 1.3 today Continue Lovenox bridging to Coumadin Increase Coumadin to 8 mg today Advised to follow-up with Coumadin clinic upon discharge Chronic thrombocytopenia Monitor platelets No bleeding issues Hypokalemia Replete electrolytes as able Orthostatic hypotension Continue midodrine Myotonic muscular dystrophy Depression with anxiety Bipolar disorder Small fiber neuropathy Continue home meds DVT Px: Lovenox/warfarin Code Status Full code Admission and Anticipated Discharge Date Admission Date: November 13, 2022 Subjective Patient is seen and examined at bedside Reports mild headache Cough much improved Denies any chest pain, dyspnea, dizziness, nausea, abdominal pain No other complaints Had 2 step ealier today Review of Systems Review of Systems: All systems reviewed & are unremarkable except as noted in Subjective Physical Exam Physical Exam: Physical Exam: Vitals signs as noted above General Appearance:Moderately built and nourished, no apparent distress Head: normocephalic, Atraumatic Eyes: normal inspection, EOMI Neck: supple, Trachea midline Respiratory/Chest: Decreased breath sounds, CTA, No accessory muscle use Cardiovascular: S1, S2, No murmur Abdomen/GI:Soft, Non tender, Bowel sounds present Extremities/Musculoskeletal:normal inspection, no edema Neurologic/Psych:AAOX3, grossly no focal neurological deficits Skin: normal color, warm Results & Data Results & Data ([facility]) Vital Signs (Past 12 Hours) Vital Signs Temp Pulse Pulse Pulse Pulse Pulse Resp 11/16/22 11:26 66 19 11/16/22 10:01 85 93 H 85 82 11/16/22 07:04 36.7 C 11/16/22 07:46 52 L 11/16/22 07:30 11/16/22 07:04 52 L 17 11/16/22 05:00 68 17 11/16/22 04:00 59 L 19 11/16/22 04:00 11/16/22 03:00 60 18 11/16/22 04:57 36.6 C Resp Resp Resp Resp BP Pulse Ox Pulse Ox 11/16/22 11:26 109/70 96 11/16/22 10:01 17 18 17 16 94 11/16/22 07:04 11/16/22 07:46 11/16/22 07:30 11/16/22 07:04 101/71 92 11/16/22 05:00 94 11/16/22 04:00 89 L 11/16/22 04:00 101/68 11/16/22 03:00 95 11/16/22 04:57 Pulse Ox Pulse Ox Pulse Ox O2 Del Method O2 Flow Rate O2 Flow Rate 11/16/22 11:26 Nasal Cannula 2 11/16/22 10:01 86 L 92 94 2 11/16/22 07:04 11/16/22 07:46 11/16/22 07:30 Room Air 11/16/22 07:04 Room Air 11/16/22 05:00 11/16/22 04:00 Nasal Cannula 2 11/16/22 04:00 11/16/22 03:00 11/16/22 04:57 Laboratory Results Short CBC 11/16/22 Range/Units 04:56 WBC 3.70 L (4.8-10.8) K/ul Hgb 11.2 L (12.0-16.0) g/dl Hct 35.0 L (37.0-47.0) % Plt Count 106 L (130-400) K/uL BMP 11/16/22 04:56 Sodium 144 Potassium 4.3 Chloride 112 H Carbon Dioxide 31 BUN 9 Creatinine 0.57 L Glucose 102 H Calcium 9.8
--- NOTE | 2022-11-16 15:00 | Discharge Summary ---
Date of Service November 16, 2022 Admission HPI Per Admitting Provider This is a 46-year-old female who has significant past medical history of history of PE in setting factor V Leiden mutation on chronic warfarin therapy, myotonic muscular dystrophy, PFO, orthostatic hypotension, GERD, gastroparesis, small fiber neuropathy, depression with anxiety and borderline personality disorder who presented today for elective colonoscopy. Shortly after completing colonoscopy the patient appeared to aspirate a small amount of bilious material prior to reemergence from sedation. She was hypoxic requiring oxygen supplementation. Her lungs were coarse despite albuterol neb treatment. She was recommended for overnight admission due to current condition. She denies this happening in the past. Currently she does have a moist cough. She also complains of chills and right leg pain. Right leg pain is chronic for her and she is asking for Dilaudid. She tells me her blood pressure is typically on the lower side. She denies any fever or sweats, lightheadedness or dizziness, chest pain, shortness of breath at rest, abdominal pain. She does complain of nausea. Her colonoscopy revealed normal mucosa in the entire examined colon, submucosal nodule in descending colon which was biopsied and internal hemorrhoids. Examination was otherwise normal. Exam was completed by Dr. Beltran. Patient was currently on a Lovenox bridge due to her history of factor V Leiden and PE. Her last dose of Lovenox was yesterday morning. She will resume this tomorrow. Admission Exam Per Admitting Provider Constitutional: WD/WN, F, lying in L lateral decub position, vitals as above, NAD, sitting up in bed, answers questions appropriate Head: Normocephalic, Atraumatic Eyes: PERRL, conjunctivae normal, anicteric sclerae ENMT: external ear and nose normal, oropharynx normal Neck: trachea midline, no thyromegaly normal visual inspection Respiratory: Increased respiratory effort on 4 L of oxygen nasal cannula, coarse breath sounds throughout with wheeze and rhonchi, no rales. No accessory muscle use Cardiovascular: Tachycardic rate, regular rhythm, no murmur, no edema Vessels: no JVD or carotid bruit Chest: normal inspection of chest Abdomen: normal bowel sounds, soft, nontender, no hepatosplenomegaly Musculoskeletal: no cyanosis or clubbing, extremities motor strength 5/5 Skin: no rashes, warm and dry normal turgor Neurologic: PERRL, EOMI, accommodation nl, no face palsy, no dysarthria CN's II-XI intact bilaterally and moves all extremities Psychiatric: A+Ox3, euthymic affect Lymphatic: no cervical or axillary lymphadenopathy : deferred Principal Diagnosis Aspiration Pneumonia Hypoxia Chronic thrombocytopenia Hemorrhoids, 7 mm submucosal nodule of colon (descending colon) Discharge Data Allergies Allergy/AdvReac Type Severity Reaction Status Date / Time hydrocodone Allergy Severe RASH, Verified 11/13/22 08:21 FACIAL/TONGUE SWELLING Penicillins Allergy Intermediate Rash Verified 11/13/22 08:21 mold Allergy Unknown Unknown Verified 11/13/22 08:21 mushroom Allergy Verified 11/13/22 15:54 azithromycin AdvReac Severe VOMITING Verified 11/13/22 08:21 chicken derived AdvReac Intermediate GI ISSUES Verified 11/13/22 08:21 Procedures Performed Operation Date: 11/13/22 09:00 Actual Procedures p Colonoscopy Biopsy Cytology - Dg Beltran, DO Ordered Studies Laboratory Results WBC 3.70 K/ul (4.8-10.8) L 11/16/22 04:56 RBC 3.78 M/uL (4.20-5.40) L 11/16/22 04:56 Hgb 11.2 g/dl (12.0-16.0) L 11/16/22 04:56 Hct 35.0 % (37.0-47.0) L 11/16/22 04:56 MCV 92.6 fL (80.0-100.0) 11/16/22 04:56 MCH 29.6 pg (25.0-34.0) 11/16/22 04:56 MCHC 32.0 g/dL (32.0-36.0) 11/16/22 04:56 RDW Std Deviation 55.9 fL (36.4-46.3) H 11/16/22 04:56 RDW Coeff of Ora 16.4 % (11.5-14.5) H 11/16/22 04:56 Plt Count 106 K/uL (130-400) L 11/16/22 04:56 MPV 12.7 fL (9.4-12.4) H 11/16/22 04:56 Immature Gran % (Auto) 0.4 % 11/14/22 05:44 Neut % (Auto) 83.3 % 11/14/22 05:44 Lymph % (Auto) 9.9 % 11/14/22 05:44 Boundary % (Auto) 6.1 % 11/14/22 05:44 Eos % (Auto) 0.2 % 11/14/22 05:44 Baso % (Auto) 0.1 % 11/14/22 05:44 Neut # (Auto) 7.71 K/uL (1.40-6.50) H 11/14/22 05:44 Lymph # (Auto) 0.92 K/uL (1.2-3.4) L 11/14/22 05:44 Boundary # (Auto) 0.57 K/uL (0.11-0.59) 11/14/22 05:44 Eos # (Auto) 0.02 K/uL (0-0.50) 11/14/22 05:44 Baso # (Auto) 0.01 K/uL (0-0.2) 11/14/22 05:44 Immature Gran # (Auto) 0.04 K/uL (0.01-0.20) 11/14/22 05:44 Platelet Estimate Decreased (Normal) L 11/13/22 14:01 PT 13.6 Seconds (9.0-12.0) H 11/16/22 04:56 INR 1.3 (0.9-1.1) H 11/16/22 04:56 ABG pH 7.38 (7.35-7.45) 11/13/22 14:01 ABG pCO2 46 mmHg (35-46) 11/13/22 14:01 ABG pO2 72 mmHg (80-95) L 11/13/22 14:01 ABG HCO3 27 mmol/L (19-24) H 11/13/22 14:01 ABG O2 Saturation 95.3 % (90-95) H 11/13/22 14:01 ABG Base Excess 1.5 mEq/L (-9-1.8) 11/13/22 14:01 Maurice Test Pos (Pos) 11/13/22 14:01 Oxygen Given 4L 11/13/22 14:01 Sodium 144 mmol/L (136-145) 11/16/22 04:56 Potassium 4.3 mmol/L (3.5-5.1) 11/16/22 04:56 Chloride 112 mmol/L (98-107) H 11/16/22 04:56 Carbon Dioxide 31 mmol/L (21-32) 11/16/22 04:56 Anion Gap 1 (3-11) L 11/16/22 04:56 BUN 9 mg/dl (6-23) 11/16/22 04:56 Creatinine 0.57 mg/dl (0.6-1.2) L 11/16/22 04:56 Est Cr Clr Drug Dosing 93.5 ml/min 11/16/22 04:56 Est GFR ( Amer) 130.7 ml/min 11/16/22 04:56 Est GFR (Non-Af Amer) 112.7 ml/min 11/16/22 04:56 BUN/Creatinine Ratio 15.8 (10-20) 11/16/22 04:56 Glucose 102 mg/dl (70-99(Fasting)) H 11/16/22 04:56 Lactate 1.8 mmol/L (0.4-2.0) 11/13/22 15:06 Calcium 9.8 mg/dl (8.5-10.1) 11/16/22 04:56 Magnesium 2.2 mg/dl (1.7-2.4) 11/15/22 05:35 Total Creatine Kinase 80 U/L (26-192) 11/14/22 05:44 Procalcitonin 19.74 ng/ml (0-0.5) H 11/14/22 05:44 POC Ur Test NEG (NEG) 11/13/22 08:56 Stl C. diff Tox B Gene Negative Cdiff Gene (Neg) 11/15/22 16:15 Impressions Chest X-Ray 11/15/22 07:00 XR chest 1V portable CLINICAL HISTORY: Aspiration, Hypoxia COMPARISON STUDY: Chest CT April 12, 2022. Chest radiograph November 13, 2022. FINDINGS: Left basilar consolidation is again noted with slight improvement in lung aeration. There may be mild right infrahilar opacity which is unchanged. Small left pleural effusion is noted. No pneumothorax. No evidence for pulmonary edema. IMPRESSION: 1. Slight improvement in left basilar consolidation. Mild right infrahilar opacity. The findings favor pneumonia or aspiration pneumonitis. 2. Small left pleural effusion. ACT 112: Negative or not required by law. Electronically signed by: Eulogio Moya M.D. 11/15/2022 7:42 AM Hospital Course (1) Aspirated gastric contents in lower respiratory tract: (2) S/P colonoscopy: (3) Heterozygous Factor V Leiden mutation: (4) Pulmonary embolism: (5) Myotonic muscular dystrophy: Plan Aspiration Pneumonia Hypoxia Patient aspirated after colonoscopy likely secondary to anesthesia --CXR:Cardiomegaly with pulmonary vascular congestion. Probable small left pleural effusion. Mild bibasilar opacities favor atelectasis. --Repeat CXR:Slight improvement in left basilar consolidation. Mild right i nfrahilar opacity. The findings favor pneumonia or aspiration pneumonitis. Small left pleural effusion. Elevated procalcitonin -- Continue empiric antibiotics: Levaquin, Flagyl Continue pulmonary toilet Speech eval completed No issues with swallowing currently 2 step: Needs 2 liters with activity Diarrhea Likely secondary to antibiotics Stool for C diff Negative H/O PE Factor V Leiden mutation heterozygote Coumadin held for colonoscopy Subtherapeutic INR INR 1.3 today Continue Lovenox bridging to Coumadin Increase Coumadin to 8 mg today Advised to follow-up with Coumadin clinic upon discharge Chronic thrombocytopenia Monitor platelets No bleeding issues Hypokalemia Replete electrolytes as able Orthostatic hypotension Continue midodrine Myotonic muscular dystrophy Depression with anxiety Bipolar disorder Small fiber neuropathy Continue home meds DVT Px: Lovenox/warfarin Code Status Full code Total Time Total Time Spent Total Time Spent (In Minutes): 49 minutes Discharge Plan Discharge Items Patient Disposition: Home - Self-Care Reason For Visit: ASPIRATION, HYPOXIA Discharge Diagnosis: Aspiration Pneumonia Hypoxia Chronic thrombocytopenia Hemorrhoids, 7 mm submucosal nodule of colon (descending colon) Activity: Per Instructions section Exercise/Sports: Gradually increase as tolerated Non-emergency contact: Primary Care Provider Call non-emergency contact if: you have any medication questions, your pain is not controlled, your pain is unusual for you and you have a fever Follow-up/Referrals: Chuckie Judge MD [Primary Care Provider] - (Date & Time 11/18/2022 11:00 AM Provider Chuckie Judge MD Department Family Practice [facility] ) Diet: Heart Healthy Add Attending Provider Instructions: IF YOU EXPERIENCE ANY OF THE FOLLOWING SYMPTOMS AFTER YOUR PROCEDURE CALL YOUR PRIMARY CARE PHYSICIAN IMMEDIATELY OR SEEK MEDICAL ATTENTION AT YOUR NEAREST EMERGENCY ROOM: 1. SEVERE abdominal pain or bloating 2. FEVER greater than 101.1 degrees within 24 hours after the procedure 3. LARGE AMOUNTS OF BLEEDING greater than 2-3 tablespoons. If you had a polyp/s removed or have hemorrhoids, a small amount of blood from the rectum is to b e expected. 4. A localized irritation of the vein may occur at the site of the IV injection. Hot moist packs to the vein applied 4-6 times per day may reduce pain and irritation. A tender lump may develop and remain for several weeks to several months, but goes away eventually. If the area continues to be painful or becomes red and hot to the touch, please contact your primary care provider. For routine questions call [facility] at [phone]. * Avoid the use of alcohol and sedatives for 24 hours. * Patient may resume anticoagulation this evening. Addtl Cooker Sulfite Provider Instructions: Follow-up with your primary care physician on 11/18/2022 11:00 AM Follow-up with Coumadin clinic as advised for monitoring of PT/INR and adjusting Coumadin dose as needed -- Complete antibiotic course Levaquin, Flagyl as prescribed -- Continue Lovenox SQ until your INR is therapeutic between 2.0-3.0 as recommended by your Coumadin clinic ---Get blood test in 1-2 days (PT/INR) and follow-up with Coumadin clinic for further instructions -- Your PT/INR is 1.3 on 11/16/22. Take 8mg coumadin today. --Use 2 Liters supplemental oxygen with activity as advised Seek immediate medical attention if your symptoms reoccur or worsen Please take all medications as instructed on discharge list below. Please call if you have any questions or problems. You can reach a [facility] hospitalist on duty at [facility] 24 hours a day by calling [phone] Pending Studies at Discharge: Yes Studies:: Pathology results Stand-Alone Forms: [facility], Smoking Cessation Medications and DC Order Prescriptions: New levofloxacin 750 mg tablet 750 mg PO DAILY 5 Days Qty: 5 0RF metronidazole 500 mg Tablet 500 mg PO TID 5 Days Qty: 15 0RF Advanced Probiotic 625 mg (10 billion cell) Capsule 2 cap PO DAILY Qty: 14 0RF Continued warfarin 4 mg Tablet 8 mg PO SUTUTH@1600 Label Comments: bridge with lovenox last took on 11/12 0800 Rx Instructions: TAKES WITH EVENING MEAL. TAKES 4 MG ON MON, WED, FRI & SAT. TAKES 8 MG ON SUN, TU, & THURS. DIRECTED TO TAKE BY ANTICOAGULATION CLINIC/MD acetaminophen 500 mg Tablet 1,000 mg PO Q6H PRN (Reason: Pain) fluoxetine 20 mg capsule 20 mg PO QAM melatonin 10 mg Tablet 10 mg PO HS pregabalin 75 mg capsule 75 mg PO BID Cbd Cream 1 applic PO TID PRN (Reason: Pain) Rx Instructions: PER PT "USUALLY TAKE EVERY HS". midodrine 2.5 mg tablet 2.5 mg PO TID pantoprazole 40 mg tablet,delayed release (DR/EC) 40 mg PO QAM warfarin 4 mg Tablet 4 mg PO MOWEFRSA@1600 enoxaparin 60 mg/0.6 mL syringe 60 mg subcut BID Discharge Orders: Discharge Order (Routine); Ordered 11/16/22 Ordered By: Beau Romano Admission Data Admit Date/Time: 11/13/22 11:47 Attending Provider: Beau Romano Admit Provider: Kelsy Caballero Primary Care Provider: Chuckie Judge
[2022-11-16] MEDS: WARFARIN SOD 4 MG TAB PO SCH (15:01)
== END 2022-11-16 15:47 | disposition home or self-care (01) | DRG 206 ==
LOC: ENDO 07:50 → SUATTDRO 11:47 → 1E 11:47

== ENCOUNTER 2023-02-06 17:23 | Inpatient (IN) ==
[2023-02-06] MEDS ORDERED: RAPID SEQUENCE INDUCTION BAG ONE (17:34)
[2023-02-06] MEDS ORDERED: cefTRIAXone SODIUM 2,000 MG/70 ML BAG IV STA (17:46)
[2023-02-06 17:55] LABS: Base Excess VBG 3.5 mEq/L; HCO3 VBG 34 mmol/L; Oxygen Saturation VBG 67.5 %; PCO2 VBG 81 mmHg (38-50); PO2 VBG 43 mmHg; pH VBG 7.23 (7.36-7.41)
[2023-02-06] MEDS ORDERED: SODIUM CHLORIDE 0.9% 1000ML 1,000 ML IV ONE ×2 (17:57→18:03)
[2023-02-06] MEDS ORDERED: ONDANSETRON INJ 2 MG/ML 2 ML VIAL IV STA (17:57)
[2023-02-06] MEDS ORDERED: STAT IV Infusion **Titration per Protocol STA (18:05)
--- NOTE | 2023-02-06 18:13 | Emergency Department Note ---
Impression & Plan Respiratory failure, Aspiration pneumonia, Hypoxia, Vomiting ED Provider Note NAME: ELINOR PONCE AGE: 47 SEX: F : 1975 ARRIVES VIA: Ambulance INFORMANT: Patient, EMS, the patient's significant other ED PROVIDER(S): Lew Mendiola DO CHIEF COMPLAINT: Altered mental status HPI: The patient is a 47-year-old female who presented to the emergency department for an evaluation of altered mental status. We received a prehospital notification about the patient. She was found in her bed covered in emesis. She was not able to wake up but she had very poor oxygen saturation. She was placed on supplemental oxygen. An interosseous line was placed. The patient's oxygen saturation had improved but she was still very obtunded. The patient was able to wake up somewhat on arrival. She is denying any chest pain or abdominal pain. The patient's does provide some of the history. Apparently she had some marijuana cookies last evening. She denies any alcohol use. She did not go to work today and the patient's boss called the significant other. He went home to check on her and found her to be obtunded covered in emesis. ROS: See above HPI for pertinent positives & negatives. A total of 10 systems reviewed and were otherwise negative. PAST MEDICAL HISTORY: See Below PAST SURGICAL HISTORY: See Below FAMILY HISTORY: See Below SOCIAL HISTORY: See Below HOME MEDICATIONS: See Below ALLERGIES: See Below VITALS: See Below PHYSICAL EXAMINATION: GENERAL: The patient is obtunded. She responds to loud verbal commands as well as painful stimuli. EYES: The conjunctivae are clear. The pupils are round and reactive. EARS, NOSE, MOUTH AND THROAT: The nose is without any evidence of any deformity. Significant emesis was noted in the oropharynx. NECK: The neck is nontender and supple. RESPIRATORY: Diminished breath sounds are noted throughout with scattered rhonchi. Very poor air movement was noted. CARDIOVASCULAR: Regular rate and rhythm noted there no murmurs rubs or gallops normal S1 normal S2. GASTROINTESTINAL: The abdomen is soft. Ab the patient is a 47-year-old female who presented to the emergency department for an evaluation domen is nontender. MUSCULOSKELETAL/EXTREMITIES: There is no evidence of gross deformity full range of motion is noted in the hips and shoulders. SKIN: There is no obvious evidence of any rash. There are no petechiae, pallor or cyanosis noted. NEUROLOGIC: The patient is awake to loud verbal commands. She is oriented to person place but not time. Strength was symmetric but diminished bilaterally. MEDICAL DECISION MAKING: The patient is a 47-year-old female who presented to the emergency department fo r an evaluation of altered mental status and emesis. The patient arrived via ALS. She was found to be hypoxic and covered in emesis. History was difficult to obtain. The patient was last seen by her significant other this morning. She did not go to work. The patient was in extremis. She was able to wake up somewhat when she arrived but her oxygen saturation continues to drop and she continued to have episodes of emesis. For this reason she was intubated in usual fashion. The patient also had a central line placed. She was aggressively resuscitated using IV fluids as well as IV antibiotics. Radiographic studies appear to be consistent with significant aspiration pneumonia bilaterally. I discussed the patient's laboratory and radiographic studies with her significant other. I also [facility] have agreed to evaluate the patient in the emergency department for further management and disposition. Triage Nursing notes reviewed. Prior medical records reviewed Vital Signs: reviewed and remarkable for hypoxia and hypotension. Differential diagnosis: Infection, hypoglycemia, electrolyte abnormalities, overdose, toxicologic, cardiac sources, intracerebral event, neurologic, trauma, as well as other pathologies. ER treatment provided: See below Diagnostics interpreted by me: ECG: EKG was obtained in the emergency department. My interpretation is sinus tachycardia at 114 bpm. There is no ectopy. There is no acute ST segment abnormalities noted. This was compared to a tracing from November 14, 2022. No changes were noted. Cardiac Monitoring: An order was placed for continuous cardiac monitoring. The monitor shows a rate of 92 bpm with sinus rhythm. Laboratory studies: As stated above and show below. Imaging studies: See below. Radiographic imaging was reviewed by myself Consultation(s): I discussed this case with Dr. Eubanks who [facility] ED COURSE: Procedures: Femoral Central Venous Catheter Indication: Mental status Catheter Type: Triple-lumen Location: Right femoral vein Verbal consent was obtained after the risks and benefits were explained, including but not limited to intra-abdominal injury, vessel injury, bleeding, scarring, infection, pain, and bone/joint/nerve damage. At this time, the risks of the procedure are less than the risks of NOT performing the procedure. A t judy out was taken and the correct patient and site identified. The patient was placed in the supine position and the skin was prepped in the standard fashion with chlorhexidine and full sterile drapes applied. The proper landmarks were identified with ultrasound, anesthetized with 1% lidocaine without epinephrine, and the needle was inserted through the skin in the standard fashion. The needle was carefully advanced into blood vessel lumen with ultrasound guidance. The guidewire was placed uneventfully. The vessel is dilated and the catheter was placed. It was sutured into position. There was good blood return from all ports. The patient tolerated the procedure well and there were no co mplications. Endotracheal Intubation Indication hypoxia and altered mental status. The patient was on 100% oxygen via NRB prior to the procedure. Suction, airway equipment, RSI drugs, respiratory equipment, and appropriate personnel were prepared prior to the initiation of the procedure. A time out was taken. Induction was performed with etomidate and rocuronium. After observing the clinical benefit of the medications, the airway was easily visualized utilizing a glide scope. A 7.5 size ETT tube was placed atraumatically to 22 cm using standard technique. The cuff inflated without signs of malfunction. There were bilateral breath sounds, positive colormetric change, no gastric sounds, a good capnography waveform, and post procedure pulse oximetry was 98%. Post intubation sedation and paralysis was administered using propofol. There were no complications. Critical Care: I have personally spent greater than 65 minutes of critical care time in the direct management of this patient. This includes bedside care, interpretation of diagnostic studies, and testing, discussion with consultants, patient, and family members, and other required patient management activities. This 65 minutes is in excess of all separately billable procedures. 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 Ovarian cyst Pulmonary embolism (08/15/12) B/L (2010); diagnosed with Factor V Leiden- on warfarin Surgical History H/O exploratory laparotomy + OVARIAN CYST REMOVAL; Exploratory lap: 01/15/17: Grade view 1, MAC#3, ETT 7.0 + TAP block at [facility] History of adenoidectomy History of blepharoplasty x2 History of cataract surgery History of cholecystectomy History of cystoscopy History of esophagogastroduodenoscopy (EGD) History of tonsillectomy Hx of lumpectomy RIGHT Slow to wake up after anesthesia Family History Father Myotonic muscular dystrophy Grandfather (Paternal) Myotonic muscular dystrophy Brother Myotonic muscular dystrophy Grandmother (Paternal) Myotonic muscular dystrophy Other Cancer Hypertension Social History Smoking Status: Current every day smoker Second Hand Exposure: No; Do You Dip or Chew Tobacco: No; Hx Alcohol Use: Yes Alcohol type: wine Hx Substance Use: No Preferred Language: Slovenian Communication Ability: Effective Visual Impairment: No Limitations 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 Beliefs That Will Affect Care: None marital status: Single Current Living Situation: Spouse current occupational status: unemployed Feels Safe at Home: Yes Assistive Devices: Cane Allergies Allergies Allergy/AdvReac Type Severity Reaction Status Date / Time hydrocodone Allergy Severe EDEMA Verified 02/06/23 17:37 FACE, LIPS, TONGUE mushroom Allergy Intermediate NAUSEA/VOMI Verified 02/06/23 17:37 TING Penicillins Allergy Intermediate EDEMA Verified 02/06/23 17:37 azithromycin AdvReac Severe NAUSEA/VOMI Verified 02/06/23 17:37 TING chicken derived AdvReac Intermediate DIARRHEA/NA Verified 02/06/23 17:37 USEA/VOMITI NG mivacurium AdvReac Intermediate VOMITING Verified 02/06/23 17:37 PER [facility] MED LIST mold AdvReac Intermediate NAUSEA/VOMI Verified 02/06/23 17:37 TING Home Meds Home Medications Medication Instructions Recorded Confirmed fluoxetine 20 mg capsule 20 mg PO QAM 10/06/18 02/06/23 warfarin 4 mg tablet See Rx Instructions .Route .COMPLEX 05/30/19 02/06/23 acetaminophen 500 mg tablet 1,000 mg PO Q6H PRN Pain 08/09/19 02/06/23 melatonin 10 mg tablet 10 mg PO HS 04/26/20 02/06/23 Cbd Cream 1 applic PO TID PRN Pain 11/22/21 02/06/23 pregabalin 75 mg capsule 75 mg PO BID 11/03/22 02/06/23 Delta 8 Gummy 1 tab PO DAILY PRN Pain 02/06/23 02/06/23 metoclopramide HCl 5 mg tablet 5 mg PO HS 02/06/23 02/06/23 ondansetron HCl 4 mg tablet 4 mg PO Q8H PRN NAUSEA/VOMITING 02/06/23 02/06/23 Results & Data (ED) Vital Signs Vital Signs - 24 hr 02/06/23 17:46 02/06/23 17:33 02/06/23 18:05 Temperature 35.4 C L Temperature Source Rectal Pulse Rate 95 H 92 H 117 H Pulse Rate from SpO2 Sensor Respiratory Rate 26 H 22 Blood Pressure Blood Pressure Mean Pulse Oximetry 81 L 100 Oxygen Delivery Method Room Air Oxygen Flow Rate Fraction of Inspired Oxygen 100 Sepsis Recent Fever Within 48 Hours No Sepsis New/Unexplained Change in Mental Status Yes Sepsis Action Taken by Nursing Physician Notified End-Tidal CO2 38 02/06/23 17:46 02/06/23 17:56 02/06/23 18:00 Temperature Temperature Source Pulse Rate 95 H 103 H 97 H Pulse Rate from SpO2 Sensor 95 H 103 H 97 H Respiratory Rate 22 25 H 20 Blood Pressure 103/67 98/61 L 96/59 L Blood Pressure Mean 79 73 71 Pulse Oximetry 96 97 99 Oxygen Delivery Method Non-rebreather Oxygen Flow Rate 15 Fraction of Inspired Oxygen Sepsis Recent Fever Within 48 Hours Sepsis New/Unexplained Change in Mental Status Sepsis Action Taken by Nursing End-Tidal CO2 02/06/23 18:05 02/06/23 18:10 02/06/23 18:50 Temperature Temperature Source Pulse Rate 125 H 115 H 92 H Pulse Rate from SpO2 Sensor 125 H 115 H 91 H Respiratory Rate 26 H 33 H 23 Blood Pressure 137/100 107/75 95/62 L Blood Pressure Mean 112 85 73 Pulse Oximetry 100 100 100 Oxygen Delivery Method Ambu-Bag Mechanical Vent Mechanical Vent Oxygen Flow Rate Fraction of Inspired Oxygen Sepsis Recent Fever Within 48 Hours Sepsis New/Unexplained Change in Mental Status Sepsis Action Taken by Nursing End-Tidal CO2 32 35 02/06/23 18:02 Temperature Temperature Source Pulse Rate Pulse Rate from SpO2 Sensor Respiratory Rate Blood Pressure Blood Pressure Mean Pulse Oximetry 100 Oxygen Delivery Method Oxygen Flow Rate Fraction of Inspired Oxygen Sepsis Recent Fever Within 48 Hours Sepsis New/Unexplained Change in Mental Status Sepsis Action Taken by Nursing End-Tidal CO2 Home Medications Current Medication List: was personally reviewed by me Laboratory Data Attestation: I reviewed the patient's lab results. 02/06/23 17:46 02/06/23 17:46 Lab Results 02/06/23 02/06/23 02/06/23 Range/Units 17:46 17:46 17:46 WBC 3.78 L (4.8-10.8) K/ul RBC 4.57 (4.20-5.40) M/uL Hgb 13.5 (12.0-16.0) g/dl Hct 43.2 (37.0-47.0) % MCV 94.5 (80.0-100.0) fL MCH 29.5 (25.0-34.0) pg MCHC 31.3 L (32.0-36.0) g/dL RDW Std Deviation 54.1 H (36.4-46.3) fL RDW Coeff of Ora 15.6 H (11.5-14.5) % Plt Count 95 L (130-400) K/uL MPV 12.2 (9.4-12.4) fL Immature Gran % (Auto) 0.3 % Neut % (Auto) 84.6 % Lymph % (Auto) 6.6 % Stephenson % (Auto) 7.7 % Eos % (Auto) 0.3 % Baso % (Auto) 0.5 % Neut # (Auto) 3.20 (1.40-6.50) K/uL Lymph # (Auto) 0.25 L (1.2-3.4) K/uL Stephenson # (Auto) 0.29 (0.11-0.59) K/uL Eos # (Auto) 0.01 (0-0.50) K/uL Baso # (Auto) 0.02 (0-0.2) K/uL Immature Gran # (Auto) 0.01 (0.01-0.20) K/uL Platelet Estimate Decreased L (Normal) Polychromasia 1+ PT INR APTT PTT Ratio POC pH (7.35-7.45) POC pCO2 (35-46) mmHg POC pO2 (80-95) mmHg POC HCO3 (19-24) lidya/L POC Total CO2 (24-31) mmol/L POC Base Excess (-9-1.8) lidya/L POC ABG O2 Sat (90-95) % VBG pH (7.36-7.41) VBG pCO2 (38-50) mmHg VBG pO2 mmHg VBG HCO3 mmol/L VBG O2 Saturation % VBG Base Excess mEq/L Sodium 146 H (136-145) mmol/L Potassium 3.7 (3.5-5.1) mmol/L Chloride 109 H (98-107) mmol/L Carbon Dioxide 31 (21-32) mmol/L Anion Gap 6 (3-11) BUN 22 (6-23) mg/dl Creatinine 0.63 (0.6-1.2) mg/dl Est Cr Clr Drug Dosing Not Reportable Est GFR ( Amer) 125.6 ml/min Est GFR (Non-Af Amer) 108.3 ml/min BUN/Creatinine Ratio 34.9 H (10-20) Glucose 150 H (70-99(Fasting)) mg/dl Lactate 2.0 (0.4-2.0) mmol/L Calcium 10.5 H (8.6-10.3) mg/dl Magnesium 2.4 (1.7-2.4) mg/dl Total Bilirubin 0.8 (0.2-1.0) mg/dl Direct Bilirubin 0.1 (0-0.2) mg/dl AST 196 H (13-39) U/L ALT 216 H (7-52) U/L Alkaline Phosphatase 169 H (34-104) U/L Troponin I High Sens 8.5 (0-14) pg/ml Total Protein 6.8 (6.0-8.3) gm/dl Albumin 3.9 (3.4-5.0) gm/dl Procalcitonin (0-0.5) ng/ml HCG, Qual (Negative) Urine Color Urine Appearance (Clear) Urine pH (4.5-7.5) Ur Specific [place] (1.000-1.030) Urine Protein (Negative) Urine Glucose (UA) (Negative) Urine Ketones (Negative) Urine Blood (Negative) Urine Nitrite (Negative) Urine Bilirubin (Negative) Urine Urobilinogen (Negative) Ur Leukocyte Esterase (Negative) Urine Opiates Screen (Neg) Ur Methadone, Qual (Neg) Urine Barbiturates (Neg) Ur Phencyclidine (PCP) (Neg) U Amphetamin/Meth Scrn (Neg) MDMA (Ecstasy) Screen (Neg) U Benzodiazepines Scrn (Neg) Ur Cocaine Metabolite (Neg) U Marijuana (THC) Screen (Neg) Ethyl Alcohol mg/dL (<10.0) mg/dl Blood Type Antibody Screen 02/06/23 02/06/23 02/06/23 Range/Units 17:46 17:46 17:46 WBC (4.8-10.8) K/ul RBC (4.20-5.40) M/uL Hgb (12.0-16.0) g/dl Hct (37.0-47.0) % MCV (80.0-100.0) fL MCH (25.0-34.0) pg MCHC (32.0-36.0) g/dL RDW Std Deviation (36.4-46.3) fL RDW Coeff of Ora (11.5-14.5) % Plt Count (130-400) K/uL MPV (9.4-12.4) fL Immature Gran % (Auto) % Neut % (Auto) % Lymph % (Auto) % Stephenson % (Auto) % Eos % (Auto) % Baso % (Auto) % Neut # (Auto) (1.40-6.50) K/uL Lymph # (Auto) (1.2-3.4) K/uL Stephenson # (Auto) (0.11-0.59) K/uL Eos # (Auto) (0-0.50) K/uL Baso # (Auto) (0-0.2) K/uL Immature Gran # (Auto) (0.01-0.20) K/uL Platelet Estimate (Normal) Polychromasia PT Cancelled INR Cancelled APTT Cancelled PTT Ratio Cancelled POC pH (7.35-7.45) POC pCO2 (35-46) mmHg POC pO2 (80-95) mmHg POC HCO3 (19-24) lidya/L POC Total CO2 (24-31) mmol/L POC Base Excess (-9-1.8) lidya/L POC ABG O2 Sat (90-95) % VBG pH (7.36-7.41) VBG pCO2 (38-50) mmHg VBG pO2 mmHg VBG HCO3 mmol/L VBG O2 Saturation % VBG Base Excess mEq/L Sodium (136-145) mmol/L Potassium (3.5-5.1) mmol/L Chloride (98-107) mmol/L Carbon Dioxide (21-32) mmol/L Anion Gap (3-11) BUN (6-23) mg/dl Creatinine (0.6-1.2) mg/dl Est Cr Clr Drug Dosing Est GFR ( Amer) ml/min Est GFR (Non-Af Amer) ml/min BUN/Creatinine Ratio (10-20) Glucose (70-99(Fasting)) mg/dl Lactate (0.4-2.0) mmol/L Calcium (8.6-10.3) mg/dl Magnesium (1.7-2.4) mg/dl Total Bilirubin (0.2-1.0) mg/dl Direct Bilirubin (0-0.2) mg/dl AST (13-39) U/L ALT (7-52) U/L Alkaline Phosphatase (34-104) U/L Troponin I High Sens (0-14) pg/ml Total Protein (6.0-8.3) gm/dl Albumin (3.4-5.0) gm/dl Procalcitonin 22.33 H (0-0.5) ng/ml HCG, Qual Negative (Negative) Urine Color Urine Appearance (Clear) Urine pH (4.5-7.5) Ur Specific [place] (1.000-1.030) Urine Protein (Negative) Urine Glucose (UA) (Negative) Urine Ketones (Negative) Urine Blood (Negative) Urine Nitrite (Negative) Urine Bilirubin (Negative) Urine Urobilinogen (Negative) Ur Leukocyte Esterase (Negative) Urine Opiates Screen (Neg) Ur Methadone, Qual (Neg) Urine Barbiturates (Neg) Ur Phencyclidine (PCP) (Neg) U Amphetamin/Meth Scrn (Neg) MDMA (Ecstasy) Screen (Neg) U Benzodiazepines Scrn (Neg) Ur Cocaine Metabolite (Neg) U Marijuana (THC) Screen (Neg) Ethyl Alcohol mg/dL (<10.0) mg/dl Blood Type A Positive Antibody Screen NEGATIVE 02/06/23 02/06/23 02/06/23 Range/Units 17:46 18:00 18:00 WBC (4.8-10.8) K/ul RBC (4.20-5.40) M/uL Hgb (12.0-16.0) g/dl Hct (37.0-47.0) % MCV (80.0-100.0) fL MCH (25.0-34.0) pg MCHC (32.0-36.0) g/dL RDW Std Deviation (36.4-46.3) fL RDW Coeff of Ora (11.5-14.5) % Plt Count (130-400) K/uL MPV (9.4-12.4) fL Immature Gran % (Auto) % Neut % (Auto) % Lymph % (Auto) % Stephenson % (Auto) % Eos % (Auto) % Baso % (Auto) % Neut # (Auto) (1.40-6.50) K/uL Lymph # (Auto) (1.2-3.4) K/uL Stephenson # (Auto) (0.11-0.59) K/uL Eos # (Auto) (0-0.50) K/uL Baso # (Auto) (0-0.2) K/uL Immature Gran # (Auto) (0.01-0.20) K/uL Platelet Estimate (Normal) Polychromasia PT INR APTT PTT Ratio POC pH (7.35-7.45) POC pCO2 (35-46) mmHg POC pO2 (80-95) mmHg POC HCO3 (19-24) lidya/L POC Total CO2 (24-31) mmol/L POC Base Excess (-9-1.8) lidya/L POC ABG O2 Sat (90-95) % VBG pH 7.23 L (7.36-7.41) VBG pCO2 81 H (38-50) mmHg VBG pO2 43 mmHg VBG HCO3 34 mmol/L VBG O2 Saturation 67.5 % VBG Base Excess 3.5 mEq/L Sodium (136-145) mmol/L Potassium (3.5-5.1) mmol/L Chloride (98-107) mmol/L Carbon Dioxide (21-32) mmol/L Anion Gap (3-11) BUN (6-23) mg/dl Creatinine (0.6-1.2) mg/dl Est Cr Clr Drug Dosing Est GFR ( Amer) ml/min Est GFR (Non-Af Amer) ml/min BUN/Creatinine Ratio (10-20) Glucose (70-99(Fasting)) mg/dl Lactate (0.4-2.0) mmol/L Calcium (8.6-10.3) mg/dl Magnesium (1.7-2.4) mg/dl Total Bilirubin (0.2-1.0) mg/dl Direct Bilirubin (0-0.2) mg/dl AST (13-39) U/L ALT (7-52) U/L Alkaline Phosphatase (34-104) U/L Troponin I High Sens (0-14) pg/ml Total Protein (6.0-8.3) gm/dl Albumin (3.4-5.0) gm/dl Procalcitonin (0-0.5) ng/ml HCG, Qual (Negative) Urine Color Yellow Urine Appearance Clear (Clear) Urine pH 6.0 (4.5-7.5) Ur Specific [place] 1.023 (1.000-1.030) Urine Protein Negative (Negative) Urine Glucose (UA) Negative (Negative) Urine Ketones Negative (Negative) Urine Blood Negative (Negative) Urine Nitrite Negative (Negative) Urine Bilirubin Negative (Negative) Urine Urobilinogen Negative (Negative) Ur Leukocyte Esterase Negative (Negative) Urine Opiates Screen Neg (Neg) Ur Methadone, Qual Neg (Neg) Urine Barbiturates Neg (Neg) Ur Phencyclidine (PCP) Neg (Neg) U Amphetamin/Meth Scrn Neg (Neg) MDMA (Ecstasy) Screen Neg (Neg) U Benzodiazepines Scrn Neg (Neg) Ur Cocaine Metabolite Neg (Neg) U Marijuana (THC) Screen Pos H (Neg) Ethyl Alcohol mg/dL (<10.0) mg/dl Blood Type Antibody Screen 02/06/23 02/06/23 Range/Units 18:10 18:48 WBC (4.8-10.8) K/ul RBC (4.20-5.40) M/uL Hgb (12.0-16.0) g/dl Hct (37.0-47.0) % MCV (80.0-100.0) fL MCH (25.0-34.0) pg MCHC (32.0-36.0) g/dL RDW Std Deviation (36.4-46.3) fL RDW Coeff of Ora (11.5-14.5) % Plt Count (130-400) K/uL MPV (9.4-12.4) fL Immature Gran % (Auto) % Neut % (Auto) % Lymph % (Auto) % Stephenson % (Auto) % Eos % (Auto) % Baso % (Auto) % Neut # (Auto) (1.40-6.50) K/uL Lymph # (Auto) (1.2-3.4) K/uL Stephenson # (Auto) (0.11-0.59) K/uL Eos # (Auto) (0-0.50) K/uL Baso # (Auto) (0-0.2) K/uL Immature Gran # (Auto) (0.01-0.20) K/uL Platelet Estimate (Normal) Polychromasia PT INR APTT PTT Ratio POC pH 7.31 L (7.35-7.45) POC pCO2 58 H (35-46) mmHg POC pO2 294 H (80-95) mmHg POC HCO3 29 H (19-24) lidya/L POC Total CO2 31 (24-31) mmol/L POC Base Excess 3.0 H (-9-1.8) lidya/L POC ABG O2 Sat 100.0 H (90-95) % VBG pH (7.36-7.41) VBG pCO2 (38-50) mmHg VBG pO2 mmHg VBG HCO3 mmol/L VBG O2 Saturation % VBG Base Excess mEq/L Sodium (136-145) mmol/L Potassium (3.5-5.1) mmol/L Chloride (98-107) mmol/L Carbon Dioxide (21-32) mmol/L Anion Gap (3-11) BUN (6-23) mg/dl Creatinine (0.6-1.2) mg/dl Est Cr Clr Drug Dosing Est GFR ( Amer) ml/min Est GFR (Non-Af Amer) ml/min BUN/Creatinine Ratio (10-20) Glucose (70-99(Fasting)) mg/dl Lactate (0.4-2.0) mmol/L Calcium (8.6-10.3) mg/dl Magnesium (1.7-2.4) mg/dl Total Bilirubin (0.2-1.0) mg/dl Direct Bilirubin (0-0.2) mg/dl AST (13-39) U/L ALT (7-52) U/L Alkaline Phosphatase (34-104) U/L Troponin I High Sens (0-14) pg/ml Total Protein (6.0-8.3) gm/dl Albumin (3.4-5.0) gm/dl Procalcitonin (0-0.5) ng/ml HCG, Qual (Negative) Urine Color Urine Appearance (Clear) Urine pH (4.5-7.5) Ur Specific [place] (1.000-1.030) Urine Protein (Negative) Urine Glucose (UA) (Negative) Urine Ketones (Negative) Urine Blood (Negative) Urine Nitrite (Negative) Urine Bilirubin (Negative) Urine Urobilinogen (Negative) Ur Leukocyte Esterase (Negative) Urine Opiates Screen (Neg) Ur Methadone, Qual (Neg) Urine Barbiturates (Neg) Ur Phencyclidine (PCP) (Neg) U Amphetamin/Meth Scrn (Neg) MDMA (Ecstasy) Screen (Neg) U Benzodiazepines Scrn (Neg) Ur Cocaine Metabolite (Neg) U Marijuana (THC) Screen (Neg) Ethyl Alcohol mg/dL < 10.0 (<10.0) mg/dl Blood Type Antibody Screen Administered Medications Discontinued Medications Sodium Chloride (Nss 1000ml) 1,000 mls @ 999 mls/hr IV .Q1H1M ONE Stop: 02/06/23 18:57 Last Admin: 02/06/23 18:58 Dose: 999 mls/hr Documented By: MT Sodium Chloride (Nss 1000ml) 1,000 mls @ 999 mls/hr IV .Q1H1M ONE Stop: 02/06/23 19:03 Last Admin: 02/06/23 18:58 Dose: 999 mls/hr Documented By: EMILY Miscellaneous (Rapid Sequence Induction Bag) Confirm Administered Dose 1 each N/A .STK-MED ONE Stop: 02/06/23 17:35 Last Admin: 02/06/23 18:00 Dose: 1 each Documented By: EMILY Imaging Data Attestation: I personally reviewed and interpreted this imaging study as follows: My Impression: 1 view chest x-ray was obtained in the emergency department. My interpretation is bilateral infiltrates. Endotracheal tube appears to be above the bernadette. NG tube appears to be in place, final report pending. Radiologist's Impression: Abdomen/Pelvis CT 02/06/23 17:53 CT SCAN OF THE CHEST, ABDOMEN, AND PELVIS WITHOUT IV CONTRAST CLINICAL HISTORY: Change in mental status. COMPARISON STUDY: Chest CT dated 04/12/2022. Abdominal CT dated 08/20/2021. TECHNIQUE: Unenhanced CT scan of the chest, abdomen, and pelvis was performed from the thoracic inlet to the proximal femora. Images are reviewed in the axial, sagittal, and coronal planes. IV contrast was not administered for this examination as per the referring clinician. Note that the examinations were performed in significantly suboptimal fashion without oral and IV contrast. The examination is compromised by motion artifact, as well as by streak artifact from the arms which could not be elevated above the chest or abdomen. A dose l owering technique was utilized adhering to the principles of ALARA. CT DOSE: 1572.82 mGy.cm FINDINGS: CHEST: Thyroid: Imaged portions of the thyroid gland are normal in size and attenuation. Thoracic aorta: The thoracic aorta is normal in caliber and demonstrates bovine variant arch anatomy. Heart: The heart is normal in size and without pericardial effusion. Lungs and pleural spaces: Evaluation of the lung parenchyma is degraded by motion artifact. An endotracheal tube has been placed. The tip extends into the right mainstem bronchus and repositioning is indicated. There is trace left pleural effusion. There is multifocal airspace consolidation seen throughout both lungs. Secretions are noted in the trachea. Mediastinum: There is no mediastinal lymphadenopathy. Daisy: Not well assessed without contrast. Axillae: There is no axillary lymphadenopathy. Bony thorax: The skeletal structures are osteopenic. No lytic or blastic lesions are identified. ABDOMEN AND PELVIS: Liver: The unenhanced liver is normal in size, contour, and attenuation. There is no intrahepatic biliary ductal dilatation. Gallbladder: Surgically absent noting clips in the gallbladder fossa. Spleen: Normal in size and attenuation. Pancreas: The unenhanced pancreas is grossly unremarkable. Adrenal glands: Unremarkable. Kidneys: The unenhanced kidneys are normal in size and without hydronephrosis. No renal calculi are identified. There is no evidence of contour deforming mass lesion. Abdominal vasculature: The abdominal aorta is normal in course and caliber. A right femoral central venous catheter is in place. Stomach and bowel: An enteric tube has been placed. The tip extends below the diaphragm into the distal stomach. There is mild colonic fecal retention. No bowel obstruction is seen. The cecum is located in the pelvis. A small amount of enteric contrast is suggested in the stomach and duodenum. The appendix is well-visualized and normal. Peritoneum: There is no intraperitoneal free air or abdominal ascites. There is a fat-containing umbilical hernia. Lymphadenopathy: None. Pelvic viscera: The bladder is decompressed around a Worthy catheter and could not be evaluated. The uterus and adnexa are normal as visualized. Skeletal structures: The skeletal structures are osteopenic. No lytic or blastic lesions are seen. IMPRESSION: 1. Suboptimal examinations without oral and IV contrast. There is also significant streak and motion artifact. 2. Lines and tubes as above. The tip of the endotracheal tube extends into the right mainstem bronchus and repositioning is indicated. 3. Multifocal airspace consolidation is seen throughout both lungs, and is typical for pneumonia. Clinical correlation will be required and radiographic follow-up to resolution is recommended. 4. Trace left pleural effusion. 5. No acute infectious or inflammatory findings are identified in the abdomen or pelvis. 6. Additional findings as above. ACT 112: Negative or not required by law. Electronically signed by: Alex Venegas M.D. 02/06/2023 7:[address] 02/06/23 17:53 CT SCAN OF THE CHEST, ABDOMEN, AND PELVIS WITHOUT IV CONTRAST CLINICAL HISTORY: Change in mental status. COMPARISON STUDY: Chest CT dated 04/12/2022. Abdominal CT dated 08/20/2021. TECHNIQUE: Unenhanced CT scan of the chest, abdomen, and pelvis was performed f rom the thoracic inlet to the proximal femora. Images are reviewed in the axial, sagittal, and coronal planes. IV contrast was not administered for this examination as per the referring clinician. Note that the examinations were performed in significantly suboptimal fashion without oral and IV contrast. The examination is compromised by motion artifact, as well as by streak artifact from the arms which could not be elevated above the chest or abdomen. A dose lowering technique was utilized adhering to the principles of ALARA. CT DOSE: 1572.82 mGy.cm FINDINGS: CHEST: Thyroid: Imaged portions of the thyroid gland are normal in size and attenuation. Thoracic aorta: The thoracic aorta is normal in caliber and demonstrates bovine variant arch anatomy. Heart: The heart is normal in size and without pericardial effusion. Lungs and pleural spaces: Evaluation of the lung parenchyma is degraded by motion artifact. An endotracheal tube has been placed. The tip extends into the right mainstem bronchus and repositioning is indicated. There is trace left pleural effusion. There is multifocal airspace consolidation seen throughout both lungs. Secretions are noted in the trachea. Mediastinum: There is no mediastinal lymphadenopathy. Daisy: Not well assessed without contrast. Axillae: There is no axillary lymphadenopathy. Bony thorax: The skeletal structures are osteopenic. No lytic or blastic lesions are identified. ABDOMEN AND PELVIS: Liver: The unenhanced liver is normal in size, contour, and attenuation. There is no intrahepatic biliary ductal dilatation. Gallbladder: Surgically absent noting clips in the gallbladder fossa. Spleen: Normal in size and attenuation. Pancreas: The unenhanced pancreas is grossly unremarkable. Adrenal glands: Unremarkable. Kidneys: The unenhanced kidneys are normal in size and without hydronephrosis. No renal calculi are identified. There is no evidence of contour deforming mass lesion. Abdominal vasculature: The abdominal aorta is normal in course and caliber. A right femoral central venous catheter is in place. Stomach and bowel: An enteric tube has been placed. The tip extends below the diaphragm into the distal stomach. There is mild colonic fecal retention. No bowel obstruction is seen. The cecum is located in the pelvis. A small amount of enteric contrast is suggested in the stomach and duodenum. The appendix is well-visualized and normal. Peritoneum: There is no intraperitoneal free air or abdominal ascites. There is a fat-containing umbilical hernia. Lymphadenopathy: None. Pelvic viscera: The bladder is decompressed around a Worthy catheter and could not be evaluated. The uterus and adnexa are normal as visualized. Skeletal structures: The skeletal structures are osteopenic. No lytic or blastic lesions are seen. IMPRESSION: 1. Suboptimal examinations without oral and IV contrast. There is also significant streak and motion artifact. 2. Lines and tubes as above. The tip of the endotracheal tube extends into the right mainstem bronchus and repositioning is indicated. 3. Multifocal airspace consolidation is seen throughout both lungs, and is typical for pneumonia. Clinical correlation will be required and radiographic follow-up to resolution is recommended. 4. Trace left pleural effusion. 5. No acute infectious or inflammatory findings are identified in the abdomen or pelvis. 6. Additional findings as above. ACT 112: Negative or not required by law. Electronically signed by: Alxe Venegas M.D. 02/06/2023 7:[address] 02/06/23 17:53 CT SCAN OF THE BRAIN WITHOUT IV CONTRAST CLINICAL HISTORY: Change in mental status. COMPARISON STUDY: CT of the brain dated 05/15/2022. MRI of the brain dated 03/25/2019. TECHNIQUE: Unenhanced axial CT scan of the brain is performed from the vertex to the skull base. A dose lowering technique was utilized adhering to the principles of ALARA. FINDINGS: Brain parenchyma: There is age advanced involutional change noting significant white matter disease. This is similar to previous. There is no hemorrhage, mass effect, or evidence of acute territorial ischemia by CT criteria. Bennett-white matter differentiation is preserved. No extra-axial fluid collection is seen. Ventricles, sulci, cisterns: Prominent secondary to involutional change. Intracranial vasculature: There is atherosclerotic calcification of the cavernous carotid arteries. Calvarium: Unremarkable. Sinuses and mastoids: There is trace mucosal thickening within the maxillary antra. Moderate mucosal thickening is seen within the ethmoid sinuses. The mastoid air cells are well pneumatized. Orbits: The bony orbits are grossly intact. There are bilateral ocular lens implants. IMPRESSION: There is no hemorrhage, mass effect, or evidence of acute terr itorial ischemia by CT criteria. ACT 112: Negative or not required by law. Electronically signed by: Alex Venegas M.D. 02/06/2023 6:42 PM Discharge Plan Visit Data Chief Complaint: Unresponsive Stated Complaint: UNRESPONSIVE, VOMITING ED Provider: Lew Mendiola Discharge Problem: Respiratory failure, Aspiration pneumonia, Hypoxia, Vomiting Patient Disposition: Being Evaluated by Hospitalist Forms Stand Alone Forms: My [facility] Prescriptions Prescriptions: No Action warfarin 4 mg Tablet See Rx Instructions .ROUTE .COMPLEX Rx Instructions: TAKES 4 MG ON MON, WED, & FRI, THEN 8 MG ON SUN, TUES, THURS, & SAT. OF 01/27/23 PER [facility] MED LIST BY [facility]/ acetaminophen 500 mg Tablet 1,000 mg PO Q6H PRN (Reason: Pain) fluoxetine 20 mg capsule 20 mg PO QAM melatonin 10 mg Tablet 10 mg PO HS pregabalin 75 mg capsule 75 mg PO BID Rx Instructions: LAST FILLED 10/29/22 FOR 30 DAYS. Cbd Cream 1 applic PO TID PRN (Reason: Pain) ondansetron HCl [Zofran] 4 mg Tablet 4 mg PO Q8H PRN (Reason: NAUSEA/VOMITING) metoclopramide HCl 5 mg tablet 5 mg PO HS Delta 8 Gummy 1 tab PO DAILY PRN (Reason: Pain) Referrals Referrals: Chuckie Judge MD [Primary Care Provider] -
[2023-02-06 18:18] LABS: Alanine Aminotransferase 216 U/L (7-52); Albumin Level 3.9 gm/dl (3.4-5.0); Alkaline Phosphatase 169 U/L (34-104); Anion Gap 6 (3-11); Aspartate Aminotransferase 196 U/L (13-39); BUN Creatinine Ratio 34.9 (10-20); Bilirubin Direct 0.1 mg/dl (0-0.2); Bilirubin,Total 0.8 mg/dl (0.2-1.0); Blood Urea Nitrogen 22 mg/dl (6-23); Calcium 10.5 mg/dl (8.6-10.3); Carbon Dioxide 31 mmol/L (21-32); Chloride 109 mmol/L (98-107); Est GFR (African American) 125.6 ml/min; Est GFR (Non-African American) 108.3 ml/min; Glucose 150 mg/dl (70-99(Fasting)); Magnesium 2.4 mg/dl (1.7-2.4); Potassium 3.7 mmol/L (3.5-5.1); Sodium 146 mmol/L (136-145); Total Protein 6.8 gm/dl (6.0-8.3)
[2023-02-06 18:21] LABS: Pregnancy Test, Serum Negative (Negative)
[2023-02-06 18:23] LABS: Troponin I High Sensitivity 8.5 pg/ml (0-14)
[2023-02-06 18:23] LABS: iSTAT Arterial Blood Gas HCO3 29 meg/L (19-24); iSTAT Arterial Blood Gas pCO2 58 mmHg (35-46); iSTAT Arterial Blood Gas pH 7.31 (7.35-7.45); iSTAT Arterial Blood Gas pO2 294 mmHg (80-95); iSTAT Carbon Dioxide 31 mmol/L (24-31)
[2023-02-06 18:31] LABS: Appearance Urine Clear (Clear); Bilirubin Urine Negative (Negative); Blood Urine Negative (Negative); Color Urine Yellow; Glucose Urine UA Negative (Negative); Ketones Urine Negative (Negative); Leukocyte Esterase Urine Negative (Negative); Nitrite Urine Negative (Negative); Protein Urine Negative (Negative); Specific Gravity Urine 1.023 (1.000-1.030); Urobilinogen Urine Negative (Negative)
[2023-02-06 18:41] LABS: Basophils # (auto) 0.02 K/uL (0-0.2); Basophils % (auto) 0.5 %; Eosinophils # (auto) 0.01 K/uL (0-0.50); Eosinophils % (auto) 0.3 %; Hematocrit (blood only) 43.2 % (37.0-47.0); Hemoglobin 13.5 g/dl (12.0-16.0); Immature Granulocytes # (auto) 0.01 K/uL (0.01-0.20); Immature Granulocytes % (auto) 0.3 %; Lymphocytes # (auto) 0.25 K/uL (1.2-3.4); Lymphocytes % (auto) 6.6 %; Mean Corpuscular Hemoglobin 29.5 pg (25.0-34.0); Mean Corpuscular Hgb Conc 31.3 g/dL (32.0-36.0); Mean Corpuscular Volume 94.5 fL (80.0-100.0); Mean Platelet Volume 12.2 fL (9.4-12.4); Monocytes # (auto) 0.29 K/uL (0.11-0.59); Monocytes % (auto) 7.7 %; Neutrophils % (auto) 84.6 %; Platelet Count 95 K/uL (130-400); Platelet Estimate Decreased (Normal); Polychromasia 1+; RDW Coefficient of Variation 15.6 % (11.5-14.5); RDW Standard Deviation 54.1 fL (36.4-46.3); Red Blood Count 4.57 M/uL (4.20-5.40); White Blood Count 3.78 K/ul (4.8-10.8)
--- NOTE | 2023-02-06 18:44 | CT Scan Report ---
CT SCAN OF THE BRAIN WITHOUT IV CONTRAST CLINICAL HISTORY: Change in mental status. COMPARISON STUDY: CT of the brain dated 05/15/2022. MRI of the brain dated 03/25/2019. TECHNIQUE: Unenhanced axial CT scan of the brain is performed from the vertex to the skull base. A d ose lowering technique was utilized adhering to the principles of ALA. FINDINGS: Brain parenchyma: There is age advanced involutional change noting significant white matter disease. This is similar to previous. There is no hemorrhage, mass effect, or evidence of acute territorial is chemia by CT criteria. Bennett-white matter differentiation is preserved. No extra-axial fluid collectio n is seen. Ventricles, sulci, cisterns: Prominent secondary to involutional change. Intracranial vasculature: There is atherosclerotic calcification of the cavernous carotid arteries. Calvarium: Unremarkable. Sinuses and mastoids: There is trace mucosal thickening within the maxillary antra. Moderate mucosal thickening is seen within the ethmoid sinuses. The mastoid air cells are well pneumatized. Orbits: The bony orbits are grossly intact. There are bilateral ocular lens implants. IMPRESSION: There is no hemorrhage, mass effect, or evidence of acute territorial ischemia by CT crit soheila. ACT 112: Negative or not required by law. Electronically signed by: Alex Venegas M.D. 02/06/2023 6:42 PM
[2023-02-06 19:01] LABS: Procalcitonin 22.33 ng/ml (0-0.5)
[2023-02-06 19:05] LABS: Amphetamines+Metham, Urine Neg (Neg); Barbiturates, Urine Neg (Neg); Benzodiazepine, Urine Neg (Neg); Cocaine, Urine Neg (Neg); MDMA (Ecstacy), Urine Neg (Neg); Methadone, Urine Neg (Neg); Opiate, Urine Neg (Neg); Phencyclidine, Urine Neg (Neg)
--- NOTE | 2023-02-06 19:11 | CT Scan Report ---
CT SCAN OF THE CHEST, ABDOMEN, AND PELVIS WITHOUT IV CONTRAST CLINICAL HISTORY: Change in mental status. COMPARISON STUDY: Chest CT dated 04/12/2022. Abdominal CT dated 08/20/2021. TECHNIQUE: Unenhanced CT scan of the chest, abdomen, and pelvis was performed from the thoracic inlet to the proximal femora. Images are reviewed in the axial, sagittal, and coronal planes. IV contrast was not administered for this examination as per the referring clinician. Note that the examinations were performed in significantly suboptimal fashion without oral and IV contrast. The examination is c ompromised by motion artifact, as well as by streak artifact from the arms which could not be elevate d above the chest or abdomen. A dose lowering technique was utilized adhering to the principles of AL KAVIN. CT DOSE: 1572.82 mGy.cm FINDINGS: CHEST: Thyroid: Imaged portions of the thyroid gland are normal in size and attenuation. Thoracic aorta: The thoracic aorta is normal in caliber and demonstrates bovine variant arch anatomy. Heart: The heart is normal in size and without pericardial effusion. Lungs and pleural spaces: Evaluation of the lung parenchyma is degraded by motion artifact. An endotr acheal tube has been placed. The tip extends into the right mainstem bronchus and repositioning is in dicated. There is trace left pleural effusion. There is multifocal airspace consolidation seen throug hout both lungs. Secretions are noted in the trachea. Mediastinum: There is no mediastinal lymphadenopathy. Daisy: Not well assessed without contrast. Axillae: There is no axillary lymphadenopathy. Bony thorax: The skeletal structures are osteopenic. No lytic or blastic lesions are identified. ABDOMEN AND PELVIS: Liver: The unenhanced liver is normal in size, contour, and attenuation. There is no intrahepatic taylor iary ductal dilatation. Gallbladder: Surgically absent noting clips in the gallbladder fossa. Spleen: Normal in size and attenuation. Pancreas: The unenhanced pancreas is grossly unremarkable. Adrenal glands: Unremarkable. Kidneys: The unenhanced kidneys are normal in size and without hydronephrosis. No renal calculi are i dentified. There is no evidence of contour deforming mass lesion. Abdominal vasculature: The abdominal aorta is normal in course and caliber. A right femoral central v enous catheter is in place. Stomach and bowel: An enteric tube has been placed. The tip extends below the diaphragm into the dist al stomach. There is mild colonic fecal retention. No bowel obstruction is seen. The cecum is located in the pelvis. A small amount of enteric contrast is suggested in the stomach and duodenum. The appe ndix is well-visualized and normal. Peritoneum: There is no intraperitoneal free air or abdominal ascites. There is a fat-containing umbi lical hernia. Lymphadenopathy: None. Pelvic viscera: The bladder is decompressed around a Worthy catheter and could not be evaluated. The u terus and adnexa are normal as visualized. Skeletal structures: The skeletal structures are osteopenic. No lytic or blastic lesions are seen. IMPRESSION: 1. Suboptimal examinations without oral and IV contrast. There is also significant streak and motion artifact. 2. Lines and tubes as above. The tip of the endotracheal tube extends into the right mainstem bronchu s and repositioning is indicated. 3. Multifocal airspace consolidation is seen throughout both lungs, and is typical for pneumonia. Cli nical correlation will be required and radiographic follow-up to resolution is recommended. 4. Trace left pleural effusion. 5. No acute infectious or inflammatory findings are identified in the abdomen or pelvis. 6. Additional findings as above. ACT 112: Negative or not required by law. Electronically signed by: Alex Venegas M.D. 02/06/2023 7:09 PM
[2023-02-06] MEDS ORDERED: metroNIDAZOLE 500 MG/100 ML BAG IV STA (19:12)
[2023-02-06] MEDS ORDERED: methylPREDNISolone 40 MG in SYRINGE 0 ML IV STA (19:23)
[2023-02-06] MEDS ORDERED: LACTATED RINGER'S 1,000 ML IV ONE (19:28)
--- NOTE | 2023-02-06 19:28 | XRay Report ---
SINGLE VIEW CHEST CLINICAL HISTORY: Sepsis FINDINGS: An AP, portable, upright chest radiograph is compared to study dated 11/15/2022 and correlat ed with chest CT performed earlier the same day 02/06/2023. An endotracheal tube is in place. The tip p rojects approximately 2 cm above the bernadette. An enteric tube projects below the diaphragm over the st omach. The cardiomediastinal silhouette is unremarkable. Multifocal airspace consolidation is seen th roughout both lungs. No large pleural effusion is identified. No pneumothorax is seen. The bony thora x is grossly intact. Cholecystectomy clips are noted in the right upper quadrant. IMPRESSION: 1. Endotracheal and enteric tubes are in place as above. 2. Multifocal airspace consolidation is typical for pneumonia. Clinical correlation will be required and radiographic follow-up to resolution is recommended. ACT 112: Negative or not required by law. Electronically signed by: Alex Venegas M.D. 02/06/2023 7:27 PM
[2023-02-06 19:35] LABS: Partial Thromboplastin Ratio 0.7; Prothrombin Time 10.9 Seconds (9.0-12.0)
[2023-02-06 19:41] LABS: Partial Thromboplastin Time < 20.0 Seconds (21.0-31.0)
[2023-02-06] MEDS: propofoL 1,000 MG/100 ML VIAL IV SCH (20:18)
--- NOTE | 2023-02-06 20:28 | History & Physical Report ---
Date of Service February 06, 2023 Assessment & Plan (1) Respiratory failure: Plan: Secondary to aspiration pneumonia Recent consumption of marijuana cookies, hx IBS/gastroparesis Severe sepsis secondary to above hypercoagulable state (history PE, factor V Leiden mutation as per records) on Coumadin, INR subtherapeutic hx orthostatic hypotension as per records, patient not currently on prior midodrine Rx hx myotonic dystrophy borderline personality disorder/anxiety/mood disorder history of traumatic brain injury prediabetes, hemoglobin A1c of 5.6 2020 transaminitis, possible fatty liver disease with note of hepatic change in outpatient CT abdomen pelvis October 2022 chronic thrombocytopenia ICU Vent management CS, Clindamycin Solu-Medrol 1 dose now given bronchospasm causing hypoxemia Aspiration precautions Weight-based Lovenox given subtherapeutic INR while patient unable to take Coumadin Update hemoglobin A1c DVT prophylaxis. Weight-based Lovenox GI prophylaxis. Famotidine Full code Patient requesting updates from providers. Mr. Gunner Davidson, contact #[phone]. Total critical care time was 40 minutes. Text document was generated using Shaka voice recognition software. It may contain grammatical or spelling errors. Kindly contact undersigned for clarification of any documentation item in question. History of Present Illness Chief Complaint: Altered mental status, emesis, low oxygen Primary Care Provider: Chuckie uJdge MD History obtained from ER provider, family, and records. Unable to obtain history from patient secondary to intubated state. Medical history significant for hypercoagulable state (history PE, factor V Leiden mutation as per records) on Coumadin, PFO, orthostatic hypotension as per records, IBS, gastroparesis, myotonic dystrophy, borderline personality disorder, anxiety/mood disorder, history of traumatic brain injury, sacr oiliitis, prediabetes, chronic thrombocytopenia. Last confinement November 2022 for respiratory failure secondary to post colonoscopy aspiration pneumonia. Patient found on the floor at home today by . Patient noted to be obtunded and covered with emesis. Patient made marijuana cookies at home for the first time last night and consumed about 10 cookies as per . Initial O2 sats upon arrival at the ER 80s. Patient with recurrent emesis at the ER. Patient subsequently intubated. Ceftriaxone and Flagyl administered at the ER. 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 Allergies Allergy/AdvReac Type Severity Reaction Status Date / Time hydrocodone Allergy Severe EDEMA Verified 02/06/23 17:37 FACE, LIPS, TONGUE mushroom Allergy Intermediate NAUSEA/VOMI Verified 02/06/23 17:37 TING Penicillins Allergy Intermediate EDEMA Verified 02/06/23 17:37 azithromycin AdvReac Severe NAUSEA/VOMI Verified 02/06/23 17:37 TING chicken derived AdvReac Intermediate DIARRHEA/NA Verified 02/06/23 17:37 USEA/VOMITI NG mivacurium AdvReac Intermediate VOMITING Verified 02/06/23 17:37 PER [facility] MED LIST mold AdvReac Intermediate NAUSEA/VOMI Verified 02/06/23 17:37 TING Home Medications Medication Instructions Recorded Confirmed Type fluoxetine 20 mg capsule 20 mg PO QAM 10/06/18 02/06/23 History warfarin 4 mg tablet See Rx Instructions .Route .COMPLEX 05/30/19 02/06/23 History acetaminophen 500 mg tablet 1,000 mg PO Q6H PRN Pain 08/09/19 02/06/23 History melatonin 10 mg tablet 10 mg PO HS 04/26/20 02/06/23 History Cbd Cream 1 applic PO TID PRN Pain 11/22/21 02/06/23 History pregabalin 75 mg capsule 75 mg PO BID 11/03/22 02/06/23 History Delta 8 Gummy 1 tab PO DAILY PRN Pain 02/06/23 02/06/23 History metoclopramide HCl 5 mg tablet 5 mg PO HS 02/06/23 02/06/23 History ondansetron HCl 4 mg tablet 4 mg PO Q8H PRN NAUSEA/VOMITING 02/06/23 02/06/23 History Past Med/Surg History Medical History Anxiety Borderline personality disorder Chronic back pain Clinical depression 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 Ovarian cyst Pulmonary embolism (08/15/12) B/L (2010); diagnosed with Factor V Leiden- on warfarin Surgical History H/O exploratory laparotomy + OVARIAN CYST REMOVAL; Exploratory lap: 01/15/17: Grade view 1, MAC#3, ETT 7.0 + TAP block at [facility] History of adenoidectomy History of blepharoplasty x2 History of cataract surgery History of cholecystectomy History of cystoscopy History of esophagogastroduodenoscopy (EGD) History of tonsillectomy Hx of lumpectomy RIGHT Slow to wake up after anesthesia Family History Father Myotonic muscular dystrophy Grandfather (Paternal) Myotonic muscular dystrophy Brother Myotonic muscular dystrophy Grandmother (Paternal) Myotonic muscular dystrophy Other Cancer Hypertension Social History Smoking Status: Never smoker Second Hand Exposure: No; Do You Dip or Chew Tobacco: No; Hx Alcohol Use: Yes Alcohol type: wine Hx Substance Use: Yes Substance Use Type Other:: recent medical marijuana card - made THC cookies according to ER record Preferred Language: Lithuanian Communication Ability: Effective Communication Ability Comment: t/v now - no impairment prior Visual Impairment: No Limitations Parking Lot Supervisor Required: No Beliefs That Will Affect Care: None marital status: Single Current Living Situation: Spouse current occupational status: unemployed Other Information That Helps Us Care for You: No Feels Safe at Home: Yes Assistive Devices: Cane Assistive Devices Comment: cane as needed Review of Systems Review of Systems: Could not be reliably obtained secondary to intubated state Physical Exam Physical Exam: GENERAL sedated, intubated, obese, minimal respiratory distress SKIN: Normal color, warm HEENT: [place] palpebral conjunctivae, no ptosis, dry buccal mucosa, ET in place NECK : Supple, short neck, no tenderness CHEST : Bilateral rhonchi, no tenderness HEART : RRR, no obvious murmurs ABDOMEN: Some distention, nontender EXTREMITIES : Minimal LE swelling, no LE tenderness, no other conspicuous deformities noted NEUROLOGIC : Sedated, no facial asymmetry, gait and stance not assessed Results & Data Results & Data Vital Signs (Past 12 Hours) Vital Signs Temp Pulse Resp BP Pulse Ox O2 Del Method O2 Flow Rate 02/06/23 20:01 36.2 C L 85 30 H 119/70 95 02/06/23 20:00 36.0 C L 83 26 H 95 02/06/23 19:45 35.7 C L 85 30 H 98 02/06/23 19:45 126/79 02/06/23 19:30 35.4 C L 83 27 H 98 02/06/23 19:30 120/83 02/06/23 19:15 33.5 C L 86 28 H 100 02/06/23 19:15 108/75 02/06/23 19:01 98/77 L 02/06/23 19:01 87 22 100 02/06/23 19:00 35.4 C L 88 23 93 02/06/23 18:55 86 24 98 02/06/23 18:55 95/62 L 02/06/23 19:39 Mechanical Vent 02/06/23 18:02 100 02/06/23 18:50 92 H 23 95/62 L 100 Mechanical Vent 02/06/23 18:10 115 H 33 H 107/75 100 Mechanical Vent 02/06/23 18:05 125 H 26 H 137/100 100 Ambu-Bag 02/06/23 18:00 97 H 20 96/59 L 99 02/06/23 17:56 103 H 25 H 98/61 L 97 02/06/23 17:46 95 H 22 103/67 96 Non-rebreather 02/06/23 18:05 117 H 22 100 02/06/23 17:33 35.4 C L 92 H 26 H 81 L Room Air 02/06/23 17:46 95 H FiO2 02/06/23 20:01 02/06/23 20:00 02/06/23 19:45 02/06/23 19:45 02/06/23 19:30 02/06/23 19:30 02/06/23 19:15 02/06/23 19:15 02/06/23 19:01 02/06/23 19:01 02/06/23 19:00 02/06/23 18:55 02/06/23 18:55 02/06/23 19:39 02/06/23 18:02 02/06/23 18:50 02/06/23 18:10 02/06/23 18:05 02/06/23 18:00 02/06/23 17:56 02/06/23 17:46 02/06/23 18:05 100 02/06/23 17:33 02/06/23 17:46 Laboratory Results Laboratory Results WBC 3.78 K/ul (4.8-10.8) L 02/06/23 17:46 RBC 4.57 M/uL (4.20-5.40) 02/06/23 17:46 Hgb 13.5 g/dl (12.0-16.0) 02/06/23 17:46 Hct 43.2 % (37.0-47.0) 02/06/23 17:46 MCV 94.5 fL (80.0-100.0) 02/06/23 17:46 MCH 29.5 pg (25.0-34.0) 02/06/23 17:46 MCHC 31.3 g/dL (32.0-36.0) L 02/06/23 17:46 RDW Std Deviation 54.1 fL (36.4-46.3) H 02/06/23 17:46 RDW Coeff of Ora 15.6 % (11.5-14.5) H 02/06/23 17:46 Plt Count 95 K/uL (130-400) L 02/06/23 17:46 MPV 12.2 fL (9.4-12.4) 02/06/23 17:46 Immature Gran % (Auto) 0.3 % 02/06/23 17:46 Neut % (Auto) 84.6 % 02/06/23 17:46 Lymph % (Auto) 6.6 % 02/06/23 17:46 [place] % (Auto) 7.7 % 02/06/23 17:46 Eos % (Auto) 0.3 % 02/06/23 17:46 Baso % (Auto) 0.5 % 02/06/23 17:46 Neut # (Auto) 3.20 K/uL (1.40-6.50) 02/06/23 17:46 Lymph # (Auto) 0.25 K/uL (1.2-3.4) L 02/06/23 17:46 [place] # (Auto) 0.29 K/uL (0.11-0.59) 02/06/23 17:46 Eos # (Auto) 0.01 K/uL (0-0.50) 02/06/23 17:46 Baso # (Auto) 0.02 K/uL (0-0.2) 02/06/23 17:46 Immature Gran # (Auto) 0.01 K/uL (0.01-0.20) 02/06/23 17:46 Platelet Estimate Decreased (Normal) L 02/06/23 17:46 Polychromasia 1+ 02/06/23 17:46 PT 10.9 Seconds (9.0-12.0) 02/06/23 18:48 INR 1.0 (0.9-1.1) 02/06/23 18:48 APTT < 20.0 Seconds (21.0-31.0) L 02/06/23 18:48 PTT Ratio 0.7 02/06/23 18:48 POC pH 7.31 (7.35-7.45) L 02/06/23 18:10 POC pCO2 58 mmHg (35-46) H 02/06/23 18:10 POC pO2 294 mmHg (80-95) H 02/06/23 18:10 POC HCO3 29 lidya/L (19-24) H 02/06/23 18:10 POC Total CO2 31 mmol/L (24-31) 02/06/23 18:10 POC Base Excess 3.0 lidya/L (-9-1.8) H 02/06/23 18:10 POC ABG O2 Sat 100.0 % (90-95) H 02/06/23 18:10 VBG pH 7.23 (7.36-7.41) L 02/06/23 17:46 VBG pCO2 81 mmHg (38-50) H 02/06/23 17:46 VBG pO2 43 mmHg 02/06/23 17:46 VBG HCO3 34 mmol/L 02/06/23 17:46 VBG O2 Saturation 67.5 % 02/06/23 17:46 VBG Base Excess 3.5 mEq/L 02/06/23 17:46 Sodium 146 mmol/L (136-145) H 02/06/23 17:46 Potassium 3.7 mmol/L (3.5-5.1) 02/06/23 17:46 Chloride 109 mmol/L (98-107) H 02/06/23 17:46 Carbon Dioxide 31 mmol/L (21-32) 02/06/23 17:46 Anion Gap 6 (3-11) 02/06/23 17:46 BUN 22 mg/dl (6-23) 02/06/23 17:46 Creatinine 0.63 mg/dl (0.6-1.2) 02/06/23 17:46 Est Cr Clr Drug Dosing Not Reportable 02/06/23 17:46 Est GFR ( Amer) 125.6 ml/min 02/06/23 17:46 Est GFR (Non-Af Amer) 108.3 ml/min 02/06/23 17:46 BUN/Creatinine Ratio 34.9 (10-20) H 02/06/23 17:46 Glucose 150 mg/dl (70-99(Fasting)) H 02/06/23 17:46 Lactate 2.0 mmol/L (0.4-2.0) 02/06/23 17:46 Calcium 10.5 mg/dl (8.6-10.3) H 02/06/23 17:46 Magnesium 2.4 mg/dl (1.7-2.4) 02/06/23 17:46 Total Bilirubin 0.8 mg/dl (0.2-1.0) 02/06/23 17:46 Direct Bilirubin 0.1 mg/dl (0-0.2) 02/06/23 17:46 AST 196 U/L (13-39) H 02/06/23 17:46 ALT 216 U/L (7-52) H 02/06/23 17:46 Alkaline Phosphatase 169 U/L (34-104) H 02/06/23 17:46 Troponin I High Sens 8.5 pg/ml (0-14) 02/06/23 17:46 Total Protein 6.8 gm/dl (6.0-8.3) 02/06/23 17:46 Albumin 3.9 gm/dl (3.4-5.0) 02/06/23 17:46 Procalcitonin 22.33 ng/ml (0-0.5) H 02/06/23 17:46 HCG, Qual Negative (Negative) 02/06/23 17:46 Urine Color Yellow 02/06/23 18:00 Urine Appearance Clear (Clear) 02/06/23 18:00 Urine pH 6.0 (4.5-7.5) 02/06/23 18:00 Ur Specific [place] 1.023 (1.000-1.030) 02/06/23 18:00 Urine Protein Negative (Negative) 02/06/23 18:00 Urine Glucose (UA) Negative (Negative) 02/06/23 18:00 Urine Ketones Negative (Negative) 02/06/23 18:00 Urine Blood Negative (Negative) 02/06/23 18:00 Urine Nitrite Negative (Negative) 02/06/23 18:00 Urine Bilirubin Negative (Negative) 02/06/23 18:00 Urine Urobilinogen Negative (Negative) 02/06/23 18:00 Ur Leukocyte Esterase Negative (Negative) 02/06/23 18:00 Urine Opiates Screen Neg (Neg) 02/06/23 18:00 Ur Methadone, Qual Neg (Neg) 02/06/23 18:00 Urine Barbiturates Neg (Neg) 02/06/23 18:00 Ur Phencyclidine (PCP) Neg (Neg) 02/06/23 18:00 U Amphetamin/Meth Scrn Neg (Neg) 02/06/23 18:00 MDMA (Ecstasy) Screen Neg (Neg) 02/06/23 18:00 U Benzodiazepines Scrn Neg (Neg) 02/06/23 18:00 Ur Cocaine Metabolite Neg (Neg) 02/06/23 18:00 U Marijuana (THC) Screen Pos (Neg) H 02/06/23 18:00 Ethyl Alcohol mg/dL < 10.0 mg/dl (<10.0) 02/06/23 18:48 Blood Type A Positive 02/06/23 17:46 Antibody Screen NEGATIVE 02/06/23 17:46 Impressions Chest X-Ray 02/06/23 17:26 SINGLE VIEW CHEST CLINICAL HISTORY: Sepsis FINDINGS: An AP, portable, upright chest radiograph is compared to study dated 11/15/2022 and correlated with chest CT performed earlier the same day 02/06/2023. An endotracheal tube is in place. The tip projects approximately 2 cm above the bernadette. An enteric tube projects below the diaphragm over the stomach. The cardiomediastinal silhouette is unremarkable. Multifocal airspace consolidation is seen throughout both lungs. No large pleural effusion is identified. No pneumothorax is seen. The bony thorax is grossly intact. Cholecystectomy clips are noted in the right upper quadrant. IMPRESSION: 1. Endotracheal and enteric tubes are in place as above. 2. Multifocal airspace consolidation is typical for pneumonia. Clinical correlation will be required and radiographic follow-up to resolution is recommended. ACT 112: Negative or not required by law. Electronically signed by: Alex Venegas M.D. 02/06/2023 7:27 PM Abdomen/Pelvis CT 02/06/23 17:53 CT SCAN OF THE CHEST, ABDOMEN, AND PELVIS WITHOUT IV CONTRAST CLINICAL HISTORY: Change in mental status. COMPARISON STUDY: Chest CT dated 04/12/2022. Abdominal CT dated 08/20/2021. TECHNIQUE: Unenhanced CT scan of the chest, abdomen, and pelvis was performed from the thoracic inlet to the proximal femora. Images are reviewed in the axial, sagittal, and coronal planes. IV contrast was not administered for this examination as per the referring clinician. Note that the examinations were performed in significantly suboptimal fashion without oral and IV contrast. The examination is compromised by motion artifact, as well as by streak artifact fr om the arms which could not be elevated above the chest or abdomen. A dose lowering technique was utilized adhering to the principles of ALARA. CT DOSE: 1572.82 mGy.cm FINDINGS: CHEST: Thyroid: Imaged portions of the thyroid gland are normal in size and attenuation. Thoracic aorta: The thoracic aorta is normal in caliber and demonstrates bovine variant arch anatomy. Heart: The heart is normal in size and without pericardial effusion. Lungs and pleural spaces: Evaluation of the lung parenchyma is degraded by motion artifact. An endotracheal tube has been placed. The tip extends into the right mainstem bronchus and repositioning is indicated. There is trace left pleural effusion. There is multifocal airspace consolidation seen throughout both lungs. Secretions are noted in the trachea. Mediastinum: There is no mediastinal lymphadenopathy. Daisy: Not well assessed without contrast. Axillae: There is no axillary lymphadenopathy. Bony thorax: The skeletal structures are osteopenic. No lytic or blastic lesions are identified. ABDOMEN AND PELVIS: Liver: The unenhanced liver is normal in size, contour, and attenuation. There is no intrahepatic biliary ductal dilatation. Gallbladder: Surgically absent noting clips in the gallbladder fossa. Spleen: Normal in size and attenuation. Pancreas: The unenhanced pancreas is grossly unremarkable. Adrenal glands: Unremarkable. Kidneys: The unenhanced kidneys are normal in size and without hydronephrosis. No renal calculi are identified. There is no evidence of contour deforming mass lesion. Abdominal vasculature: The abdominal aorta is normal in course and caliber. A right femoral central venous catheter is in place. Stomach and bowel: An enteric tube has been placed. The tip extends below the diaphragm into the distal stomach. There is mild colonic fecal retention. No bowel obstruction is seen. The cecum is located in the pelvis. A small amount of enteric contrast is suggested in the stomach and duodenum. The appendix is well-visualized and normal. Peritoneum: There is no intraperitoneal free air or abdominal ascites. There is a fat-containing umbilical hernia. Lymphadenopathy: None. Pelvic viscera: The bladder is decompressed around a Worthy catheter and could not be evaluated. The uterus and adnexa are normal as visualized. Skeletal structures: The skeletal structures are osteopenic. No lytic or blastic lesions are seen. IMPRESSION: 1. Suboptimal examinations without oral and IV contrast. There is also significant streak and motion artifact. 2. Lines and tubes as above. The tip of the endotracheal tube extends into the right mainstem bronchus and repositioning is indicated. 3. Multifocal airspace consolidation is seen throughout both lungs, and is typical for pneumonia. Clinical correlation will be required and radiographic follow-up to resolution is recommended. 4. Trace left pleural effusion. 5. No acute infectious or inflammatory findings are identified in the abdomen or pelvis. 6. Additional findings as above. ACT 112: Negative or not required by law. Electronically signed by: Alex Venegas M.D. 02/06/2023 7:[address] 02/06/23 17:53 CT SCAN OF THE CHEST, ABDOMEN, AND PELVIS WITHOUT IV CONTRAST CLINICAL HISTORY: Change in mental status. COMPARISON STUDY: Chest CT dated 04/12/2022. Abdominal CT dated 08/20/2021. TECHNIQUE: Unenhanced CT scan of the chest, abdomen, and pelvis was performed from the thoracic inlet to the proximal femora. Images are reviewed in the axial, sagittal, and coronal planes. IV contrast was not administered for this examination as per the referring clinician. Note that the examinations were performed in significantly suboptimal fashion without oral and IV contrast. The examination is compromised by motion artifact, as well as by streak artifact from the arms which could not be elevated above the chest or abdomen. A dose lowering technique was utilized adhering to the principles of ALARA. CT DOSE: 1572.82 mGy.cm FINDINGS: CHEST: Thyroid: Imaged portions of the thyroid gland are normal in size and attenuation. Thoracic aorta: The thoracic aorta is normal in caliber and demonstrates bovine variant arch anatomy. Heart: The heart is normal in size and without pericardial effusion. Lungs and pleural spaces: Evaluation of the lung parenchyma is degraded by motion artifact. An endotracheal tube has been placed. The tip extends into the right mainstem bronchus and repositioning is indicated. There is trace left pleural effusion. There is multifocal airspace consolidation seen throughout both lungs. Secretions are noted in the trachea. Mediastinum: There is no mediastinal lymphadenopathy. Daisy: Not well assessed without contrast. Axillae: There is no axillary lymphadenopathy. Bony thorax: The skeletal structures are osteopenic. No lytic or blastic lesions are identified. ABDOMEN AND PELVIS: Liver: The unenhanced liver is normal in size, contour, and attenuation. There is no intrahepatic biliary ductal dilatation. Gallbladder: Surgically absent noting clips in the gallbladder fossa. Spleen: Normal in size and attenuation. Pancreas: The unenhanced pancreas is grossly unremarkable. Adrenal glands: Unremarkable. Kidneys: The unenhanced kidneys are normal in size and without hydronephrosis. No renal calculi are identified. There is no evidence of contour deforming mass lesion. Abdominal vasculature: The abdominal aorta is normal in course and caliber. A right femoral central venous catheter is in place. Stomach and bowel: An enteric tube has been placed. The tip extends below the diaphragm into the distal stomach. There is mild colonic fecal retention. No bowel obstruction is seen. The cecum is located in the pelvis. A small amount of enteric contrast is suggested in the stomach and duodenum. The appendix is well-visualized and normal. Peritoneum: There is no intraperitoneal free air or abdominal ascites. There is a fat-containing umbilical hernia. Lymphadenopathy: None. Pelvic viscera: The bladder is decompressed around a Worthy catheter and could not be evaluated. The uterus and adnexa are normal as visualized. Skeletal structures: The skeletal structures are osteopenic. No lytic or blastic lesions are seen. IMPRESSION: 1. Suboptimal examinations without oral and IV contrast. There is also significant streak and motion artifact. 2. Lines and tubes as above. The tip of the endotracheal tube extends into the right mainstem bronchus and repositioning is indicated. 3. Multifocal airspace consolidation is seen throughout both lungs, and is typical for pneumonia. Clinical correlation will be required and radiographic follow-up to resolution is recommended. 4. Trace left pleural effusion. 5. No acute infectious or inflammatory findings are identified in the abdomen or pelvis. 6. Additional findings as above. ACT 112: Negative or not required by law. Electronically signed by: Alex Venegas M.D. 02/06/2023 7:[address] 02/06/23 17:53 CT SCAN OF THE BRAIN WITHOUT IV CONTRAST CLINICAL HISTORY: Change in mental status. COMPARISON STUDY: CT of the brain dated 05/15/2022. MRI of the brain dated 03/25/2019. TECHNIQUE: Unenhanced axial CT scan of the brain is performed from the vertex to the skull base. A dose lowering technique was utilized adhering to the principles of ALARA. FINDINGS: Brain parenchyma: There is age advanced involutional change noting significant white matter disease. This is similar to previous. There is no hemorrhage, mass effect, or evidence of acute territorial ischemia by CT criteria. Bennett-white matter differentiation is preserved. No extra-axial fluid collection is seen. Ventricles, sulci, cisterns: Prominent secondary to involutional change. Intracranial vasculature: There is atherosclerotic calcification of the cavernous carotid arteries. Calvarium: Unremarkable. Sinuses and mastoids: There is trace mucosal thickening within the maxillary antra. Moderate mucosal thickening is seen within the ethmoid sinuses. The mastoid air cells are well pneumatized. Orbits: The bony orbits are grossly intact. There are bilateral ocular lens implants. IMPRESSION: There is no hemorrhage, mass effect, or evidence of acute territorial ischemia by CT criteria. ACT 112: Negative or not required by law. Electronically signed by: Alex Venegas M.D. 02/06/2023 6:42 PM Diagnostic Findings EKG as per my interpretation :Rate 115, sinus tachycardia, normal axis, nonspecific T wave abnormalities (1) Respiratory failure Chronicity: acute Respiratory failure complication: hypoxia Qualified Code(s): J96.01 - Acute respiratory failure with hypoxia
[2023-02-06] MEDS ORDERED: ACETAMINOPHEN 1,000 MG/100 ML VIAL IV PRN (20:36)
[2023-02-06 21:08] LABS: iSTAT Arterial Blood Gas HCO3 25 meg/L (19-24); iSTAT Arterial Blood Gas pCO2 44 mmHg (35-46); iSTAT Arterial Blood Gas pH 7.37 (7.35-7.45); iSTAT Arterial Blood Gas pO2 55 mmHg (80-95); iSTAT Carbon Dioxide 27 mmol/L (24-31); iSTAT Hematocrit 32 % (37-47); iSTAT Hemoglobin 10.9 g/dl (12.0-16.0); iSTAT Potassium 3.5 mmol/L (3.3-5.0); iSTAT Sodium 146 mmol/L (135-144)
[2023-02-06] MEDS ORDERED: ENOXAPARIN 80 MG/0.8 ML SYR SQ SCH (22:00)
--- NOTE | 2023-02-06 22:04 | XRay Report ---
SINGLE VIEW CHEST CLINICAL HISTORY: Respiratory failure. Tube assessment FINDINGS: 2 AP, portable, supine chest radiographs are compared to chest x-ray and chest CT performed earlier the same day 02/06/2023 An endotracheal tube is in place. The tip projects approximately 1 cm above the bernadette on the second image. An enteric tube projects below the diaphragm over the stomach. The cardiomediastinal silhouette is unremarkable. Multifocal airspace consolidation is again seen thr oughout both lungs. No large pleural effusion is identified. No pneumothorax is seen. The bony thorax is grossly intact. Cholecystectomy clips are noted in the right upper quadrant. IMPRESSION: 1. Endotracheal and enteric tubes are in place as above. 2. Multifocal airspace consolidation is again noted and not significantly changed. ACT 112: Negative or not required by law. Electronically signed by: Alex Venegas M.D. 02/06/2023 10:02 PM
[2023-02-06] MEDS ORDERED: Heparin IV Adult Wt-Based Standard *NO* Bolus Protocol IV STA (22:11)
[2023-02-06] MEDS: FAMOTIDINE 20 MG in SYRINGE 3 ML IV SCH (23:12)
[2023-02-06] MEDS: HEPARIN SODIUM/DEXTROSE 25,000 UNITS/500 ML BAG IV SCH (23:14)
--- NOTE | 2023-02-06 23:25 | Ultrasound Report ---
ULTRASOUND BILATERAL LOWER EXTREMITY VENOUS CLINICAL HISTORY: Respiratory failure. Clinical concern for deep venous thrombosis. COMPARISON STUDY: Left lower extremity venous ultrasound dated 10/06/2018. Bilateral lower extremity ve nous ultrasound dated 08/06/2011. TECHNIQUE: Real-time, grayscale, and color Doppler sonography of the deep veins of the right and left lower extremity was performed from the inguinal crease to the calf. Compression and augmentation wer e utilized. FINDINGS: There is no sonographic evidence of deep venous thrombosis identified in the right or left lower extremity. The common femoral, superficial femoral, and popliteal veins are patent and normally compressible bilaterally. The greater saphenous vein and the profunda femoris vein at the junction w ith the common femoral vein are clear in both legs. The visualized calf veins are patent bilaterally. IMPRESSION: There is no sonographic evidence of deep venous thrombosis identified in the right or lef t lower extremity. ACT 112: Negative or not required by law. Electronically signed by: Alex Venegas M.D. 02/06/2023 11:23 PM
[2023-02-06 23:28] LABS: Acetaminophen < 3 ug/ml (10-30); Salicylate < 3.0 mg/dl (3.0-30)
--- NOTE | 2023-02-06 23:37 | Critical Care Consultation ---
Date of Consultation February 06, 2023 Assessment & Plan (1) Respiratory failure: Reason Critically Ill: 47-year-old female presents to the ICU for acute hypoxic respiratory failure following an aspiration event after the patient had ingested marijuana edibles, now requiring mechanical ventilation. Neuro - Anxiety and depression/borderline personality disordercontinue home medications once patient is extubated and taking p.o. Sedationpropofol Cardiac - No history of cardiac disease. Currently sinus rhythm and hemodynamically stable without need for vasopressor support. Continuous monitoring on telemetry Respiratory - Acute hypoxic respiratory failurelikely secondary to aspiration event following ingestion of marijuana edibles -Patient does have history of pulmonary embolism and is chronically anticoagulated on Coumadin. We will check lower extremity Doppler to rule out DVT for now although low suspicion for PE -We will proceed with heparin drip while intubated -Continue broad-spectrum antibiotic, see ID below -Wean vent as tolerated, follow-up ABG and chest x-ray in a.m. -Continuous end-tidal CO2 and pulse ox monitoring GI - N.p.o. RENAL/LYTES - Creatinine within normal limits, no significant acid-base imbalance Continue IV fluid resuscitation until taking p.o. once extubated - Foleystrict I's and ENDO - No history of diabetes or thyroid disease, ICU hyperglycemic protocol HEME - H&H stable, monitor routine CBC Chronic thrombocytopenia stable ID - Pneumoniasecondary to aspiration. -Sputum culture and blood cultures are currently pending. -Continue Rocephin for now LINES/IV ACCESS - Right femoral central line, OG tube, ET tube, Worthy DVT PROPHYLAXIS - SCDs, heparin drip I have personally spent 45 minutes of critical care time in the direct management of this patient. This is a life/limb threatening event. This includes time spent evaluating patient, direct bedside care, chart review, placing orders, interpretation of diagnostic studies, discussion with consultants, patient, and family members, as well as other required patient management activities. This time is exclusive of all separately billable procedures, and teaching time and separate from and in addition to any other critical care service time. Thank you for allowing us to participate in the care of this patient. Please refer to my attending physician's documentation for any further recommendations. (2) Aspiration pneumonia: (3) Hypoxia: (4) Depression: (5) Borderline personality disorder: (6) Anxiety: (7) Pulmonary embolism: History of Present Illness Attending Physician: Shelton March MD History of Present Illness Patient is a 47-year-old female with past medical history of muscular dystrophy, factor V Leyden mutation (anticoagulated on warfarin), pulmonary embolism (2011), borderline personality disorder, anxiety disorder, depression who presented to the emergency department earlier this evening as unresponsive and hypoxic. According to the patient's , the patient had ingested multiple marijuana cookies on the previous evening. Patient was last seen by earlier this morning but was called by her boss as she had not shown up to work. He went home and found the patient covered in emesis in bed. Patient then presented to the emergency department via EMS and was on nonrebreather at 100%, and was subsequently intubated in the ED. CT chest consistent with bilateral aspiration pneumonia. Patient now transferred to ICU for further management at this time. Allergies Allergy/AdvReac Type Severity Reaction Status Date / Time hydrocodone Allergy Severe EDEMA Verified 02/06/23 17:37 FACE, LIPS, TONGUE mushroom Allergy Intermediate NAUSEA/VOMI Verified 02/06/23 17:37 TING Penicillins Allergy Intermediate EDEMA Verified 02/06/23 17:37 azithromycin AdvReac Severe NAUSEA/VOMI Verified 02/06/23 17:37 TING chicken derived AdvReac Intermediate DIARRHEA/NA Verified 02/06/23 17:37 USEA/VOMITI NG mivacurium AdvReac Intermediate VOMITING Verified 02/06/23 17:37 PER [facility] MED LIST mold AdvReac Intermediate NAUSEA/VOMI Verified 02/06/23 17:37 TING cabbage AdvReac Unknown Unknown Verified 02/07/23 10:24 Home Medications Medication Instructions Recorded Confirmed Type fluoxetine 20 mg capsule 20 mg PO QAM 10/06/18 02/06/23 History warfarin 4 mg tablet See Rx Instructions .Route .COMPLEX 05/30/19 02/06/23 History acetaminophen 500 mg tablet 1,000 mg PO Q6H PRN Pain 08/09/19 02/06/23 History melatonin 10 mg tablet 10 mg PO HS 04/26/20 02/06/23 History Cbd Cream 1 applic PO TID PRN Pain 11/22/21 02/06/23 History pregabalin 75 mg capsule 75 mg PO BID 11/03/22 02/06/23 History Delta 8 Gummy 1 tab PO DAILY PRN Pain 02/06/23 02/06/23 History metoclopramide HCl 5 mg tablet 5 mg PO HS 02/06/23 02/06/23 History ondansetron HCl 4 mg tablet 4 mg PO Q8H PRN NAUSEA/VOMITING 02/06/23 02/06/23 History Patient History Medical History Anxiety Borderline personality disorder Chronic back pain Clinical depression 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 Ovarian cyst Pulmonary embolism (08/15/12) B/L (2010); diagnosed with Factor V Leiden- on warfarin Surgical History H/O exploratory laparotomy + OVARIAN CYST REMOVAL; Exploratory lap: 01/15/17: Grade view 1, MAC#3, ETT 7.0 + TAP block at [facility] History of adenoidectomy History of blepharoplasty x2 History of cataract surgery History of cholecystectomy History of cystoscopy History of esophagogastroduodenoscopy (EGD) History of tonsillectomy Hx of lumpectomy RIGHT Slow to wake up after anesthesia Family History Father Myotonic muscular dystrophy Grandfather (Paternal) Myotonic muscular dystrophy Brother Myotonic muscular dystrophy Grandmother (Paternal) Myotonic muscular dystrophy Other Cancer Hypertension Social History Smoking Status: Never smoker Second Hand Exposure: No; Do You Dip or Chew Tobacco: No; Hx Alcohol Use: Yes Alcohol type: wine Hx Substance Use: Yes Substance Use Type Other:: recent medical marijuana card - made THC cookies according to ER record Preferred Language: Greek Communication Ability: Effective Communication Ability Comment: t/v now - no impairment prior Visual Impairment: No Limitations [employer] Required: No Beliefs That Will Affect Care: None marital status: Single Current Living Situation: Spouse current occupational status: unemployed Other Information That Helps Us Care for You: No Feels Safe at Home: Yes Assistive Devices: Cane Assistive Devices Comment: cane as needed Review of Systems Review of Systems: All systems reviewed & are unremarkable except as noted in HPI & below Physical Exam Constitutional: + mechanically ventilated; no acute distress Eyes: PERRL, conjunctivae normal, anicteric sclerae ENMT: external ear and nose normal, oropharynx normal Neck: trachea midline, no thyromegaly Respiratory: Symmetrical chest wall movement, mechanically ventilated. Lungs with coarse crackles auscultated bilaterally in all lung babin. Cardiovascular: RRR, no murmur, no edema Heart Sounds: normal S1 and normal S2 Extremities: no edema Gastrointestinal (Abdomen): normal bowel sounds, soft, nontender, no hepatosplenomegaly Musculoskeletal: no cyanosis or clubbing, extremities motor strength 5/5 Skin: no rashes, warm and dry Neurologic: Unable to assess due to sedation Psychiatric: Unable to assess due to sedation Genitourinary: Indwelling Worthy catheter present Results & Data Results & Data Vital Signs (Past 12 Hours) Vital Signs Temp Pulse Pulse Resp BP BP Pulse Ox 02/06/23 22:45 36.8 C 74 22 02/06/23 22:30 36.7 C 78 22 02/06/23 22:21 36.6 C 80 22 92/65 L 02/06/23 22:10 77 22 02/06/23 22:48 02/06/23 22:33 02/06/23 22:30 36.6 C 83 22 92/65 L 02/06/23 21:47 78 22 02/06/23 21:47 91/60 L 02/06/23 21:45 80 22 02/06/23 21:45 95/63 L 02/06/23 21:40 84 24 02/06/23 21:40 92/66 L 02/06/23 21:35 92/60 L 02/06/23 21:35 31.5 C L 78 22 100 02/06/23 21:30 31.4 C L 78 22 100 02/06/23 21:30 93/66 L 02/06/23 21:25 31.5 C L 81 22 100 02/06/23 21:25 98/54 L 02/06/23 21:20 31.5 C L 81 24 100 02/06/23 21:20 93/57 L 02/06/23 21:15 84 22 100 02/06/23 21:15 96/63 L 02/06/23 21:10 81/60 L 02/06/23 21:10 88 22 100 02/06/23 21:06 92 H 22 100 02/06/23 21:06 83/61 L 02/06/23 21:00 35.7 C L 89 22 99 02/06/23 21:00 93/53 L 02/06/23 20:55 32.5 C L 91 H 23 97 02/06/23 20:55 90/57 L 02/06/23 20:50 33.2 C L 93 H 24 90 02/06/23 20:50 89/60 L 02/06/23 20:49 33.2 C L 92 H 23 92 02/06/23 20:49 85/61 L 02/06/23 20:45 32.3 C L 95 H 29 H 93 02/06/23 20:40 34.6 C L 93 H 28 H 95 02/06/23 20:35 35.0 C L 92 H 29 H 94 02/06/23 20:35 105/59 L 02/06/23 20:32 34.8 C L 93 H 28 H 94 02/06/23 20:32 108/62 02/06/23 20:30 35.1 C L 96 H 32 H 94 02/06/23 20:26 34.7 C L 88 25 H 93 02/06/23 20:26 109/62 02/06/23 20:20 33.5 C L 94 H 27 H 93 02/06/23 20:20 140/79 02/06/23 20:16 105/63 02/06/23 20:16 37.5 C 93 H 30 H 94 02/06/23 20:15 88 30 H 95 02/06/23 19:09 86 28 H 99 02/06/23 20:01 36.2 C L 85 30 H 119/70 95 02/06/23 20:00 36.0 C L 83 26 H 95 02/06/23 19:45 35.7 C L 85 30 H 98 02/06/23 19:45 126/79 02/06/23 19:30 35.4 C L 83 27 H 98 02/06/23 19:30 120/83 02/06/23 19:15 33.5 C L 86 28 H 100 02/06/23 19:15 108/75 02/06/23 19:01 98/77 L 02/06/23 19:01 87 22 100 02/06/23 19:00 35.4 C L 88 23 93 02/06/23 18:55 86 24 98 02/06/23 18:55 95/62 L 02/06/23 19:39 02/06/23 18:02 100 02/06/23 18:50 92 H 23 95/62 L 100 02/06/23 18:10 115 H 33 H 107/75 100 02/06/23 18:05 125 H 26 H 137/100 100 02/06/23 18:00 97 H 20 96/59 L 99 02/06/23 17:56 103 H 25 H 98/61 L 97 02/06/23 17:46 95 H 22 103/67 96 02/06/23 18:05 117 H 22 100 02/06/23 17:33 35.4 C L 92 H 26 H 81 L 02/06/23 17:46 95 H O2 Del Method O2 Flow Rate FiO2 02/06/23 22:45 02/06/23 22:30 02/06/23 22:21 02/06/23 22:10 50 02/06/23 22:48 50 02/06/23 22:33 Mechanical Vent 50 02/06/23 22:30 Mechanical Vent 50 02/06/23 21:47 02/06/23 21:47 02/06/23 21:45 02/06/23 21:45 02/06/23 21:40 02/06/23 21:40 02/06/23 21:35 02/06/23 21:35 02/06/23 21:30 02/06/23 21:30 02/06/23 21:25 02/06/23 21:25 02/06/23 21:20 02/06/23 21:20 02/06/23 21:15 02/06/23 21:15 02/06/23 21:10 02/06/23 21:10 02/06/23 21:06 02/06/23 21:06 02/06/23 21:00 02/06/23 21:00 02/06/23 20:55 02/06/23 20:55 02/06/23 20:50 02/06/23 20:50 02/06/23 20:49 02/06/23 20:49 02/06/23 20:45 02/06/23 20:40 02/06/23 20:35 02/06/23 20:35 02/06/23 20:32 02/06/23 20:32 02/06/23 20:30 02/06/23 20:26 02/06/23 20:26 02/06/23 20:20 02/06/23 20:20 02/06/23 20:16 02/06/23 20:16 02/06/23 20:15 02/06/23 19:09 40 02/06/23 20:01 02/06/23 20:00 02/06/23 19:45 02/06/23 19:45 02/06/23 19:30 02/06/23 19:30 02/06/23 19:15 02/06/23 19:15 02/06/23 19:01 02/06/23 19:01 02/06/23 19:00 02/06/23 18:55 02/06/23 18:55 02/06/23 19:39 Mechanical Vent 02/06/23 18:02 02/06/23 18:50 Mechanical Vent 02/06/23 18:10 Mechanical Vent 02/06/23 18:05 Ambu-Bag 02/06/23 18:00 02/06/23 17:56 02/06/23 17:46 Non-rebreather 15 02/06/23 18:05 100 02/06/23 17:33 Room Air 02/06/23 17:46 Coding Level of Care Code 48702 CRITICAL CARE 1ST 30-74M Diagnoses Respiratory failure J96.01 Chronicity: acute Respiratory failure complication: hypoxia Aspiration pneumonia J69.0 Aspiration pneumonia type: unspecified Laterality: bilateral Lung location: unspecified part of lung Hypoxia R09.02 Depression F32.9 Borderline personality disorder F60.3 Anxiety F41.9 Pulmonary embolism I26.99 (1) Respiratory failure Chronicity: acute Respiratory failure complication: hypoxia Qualified C ode(s): J96.01 - Acute respiratory failure with hypoxia (2) Aspiration pneumonia Aspiration pneumonia type: unspecified Laterality: bilateral Lung location: unspecified part of lung Qualified Code(s): J69.0 - Pneumonitis due to inhalation of food and vomit
[2023-02-07] MEDS ORDERED: CLINDAMYCIN/D5W 600 MG/50 ML BAG IV SCH
[2023-02-07] MEDS: PROPOFOL BOLUS FROM BAG IV PRN ×6 (01:45→22:20)
[2023-02-07] MEDS: ICU Protocol for HYPERglycemia SCH ×5 (02:16→21:04)
[2023-02-07] MEDS: propofoL 1,000 MG/100 ML VIAL IV SCH ×6 (03:13→23:07)
[2023-02-07 03:51] LABS: iSTAT Allen Test Pass; iSTAT Art Bld Gas pCO2 Correct 35 mmHg (35-46); iSTAT Art Bld Gas pH Corrected 7.432 (7.35-7.45); iSTAT Arterial Blood Gas HCO3 23 meg/L (19-24); iSTAT Arterial Blood Gas pCO2 33 mmHg (35-46); iSTAT Arterial Blood Gas pH 7.44 (7.35-7.45); iSTAT Arterial Blood Gas pO2 77 mmHg (80-95); iSTAT Arterial Blood Gas pO2 C 80; iSTAT Carbon Dioxide 24 mmol/L (24-31); iSTAT FiO2 40 %; iSTAT Hematocrit 31 % (37-47); iSTAT Hemoglobin 10.5 g/dl (12.0-16.0); iSTAT Potassium 3.6 mmol/L (3.3-5.0); iSTAT Site L Radial; iSTAT Sodium 145 mmol/L (135-144)
[2023-02-07] MEDS: LACTATED RINGER'S 1,000 ML IV SCH ×3 (04:11→16:45)
[2023-02-07 06:30] LABS: Albumin Level 2.9 gm/dl (3.4-5.0); BUN Creatinine Ratio 19.1 (10-20); Bilirubin Direct 0.2 mg/dl (0-0.2); Bilirubin,Total 0.6 mg/dl (0.2-1.0); Calcium 8.7 mg/dl (8.6-10.3); Creatinine Clr Calc Pharmacy 128.5 ml/min; Est GFR (African American) 138.3 ml/min; Est GFR (Non-African American) 119.3 ml/min; Potassium 3.5 mmol/L (3.5-5.1)
[2023-02-07 06:33] LABS: Hematocrit (blood only) 30.6 % (37.0-47.0); Hemoglobin 10.1 g/dl (12.0-16.0); Mean Corpuscular Hemoglobin 30.5 pg (25.0-34.0); Mean Corpuscular Volume 92.4 fL (80.0-100.0); Mean Platelet Volume 13.6 fL (9.4-12.4); Platelet Count 82 K/uL (130-400); RDW Coefficient of Variation 15.6 % (11.5-14.5); RDW Standard Deviation 53.2 fL (36.4-46.3); Red Blood Count 3.31 M/uL (4.20-5.40); White Blood Count 4.19 K/ul (4.8-10.8)
[2023-02-07 06:43] LABS: Basophils # (auto) 0.01 K/uL (0-0.2); Basophils % (auto) 0.2 %; Immature Granulocytes # (auto) 0.02 K/uL (0.01-0.20); Immature Granulocytes % (auto) 0.5 %; Lymphocytes # (auto) 0.32 K/uL (1.2-3.4); Lymphocytes % (auto) 7.6 %; Monocytes # (auto) 0.17 K/uL (0.11-0.59); Monocytes % (auto) 4.1 %; Neutrophils # (auto) 3.67 K/uL (1.40-6.50); Neutrophils % (auto) 87.6 %
[2023-02-07] MEDS: POTASSIUM CHLORIDE / WTR 20 MEQ/100 ML PLCT IV SCH ×2 (06:52→08:46)
[2023-02-07 07:29] LABS: Partial Thromboplastin Time 84.3 Seconds (21.0-31.0)
[2023-02-07] MEDS: FAMOTIDINE 20 MG in SYRINGE 3 ML IV SCH ×2 (07:45→19:42)
[2023-02-07] MEDS: cefTRIAXone SODIUM 2,000 MG in DEXTROSE 5% 50 ML IV SCH (07:46)
[2023-02-07 07:58] LABS: Estimated Average Glucose 117 mg/dl; Hemoglobin A1C 5.7 % (4.5-5.6)
--- NOTE | 2023-02-07 08:11 | XRay Report ---
XR chest 1V portable HISTORY: Resp failure COMPARISON: Chest 02/06/2023. FINDINGS: Endotracheal tube terminates 1 a new from the bernadette. Nasogastric tube terminates below the diaphragm. The tip is not included on this study. Prior cholecystectomy. No pneumothorax. Hazy bilat eral airspace opacities are again noted. Possible trace bilateral pleural effusions. The heart is sta ble in size. IMPRESSION: 1. Satisfactory support line placement. 2. No change in the multifocal bilateral airspace opacities. 3. Suspect trace bilateral pleural effusions. ACT 112: Negative or not required by law. Electronically signed by: James Higuera M.D. 02/07/2023 8:09 AM
--- NOTE | 2023-02-07 10:47 | Electrocardiogram Report ---
Test Reason : Blood Pressure : / mmHG Vent. Rate : 114 BPM Atrial Rate : 114 BPM P-R Int : 184 ms QRS Dur : 078 ms QT Int : 302 ms P-R-T Axes : 063 028 013 degrees QTc Int : 416 ms Sinus tachycardia Nonspecific ST and T wave abnormality Abnormal ECG When compared with ECG of 14-NOV-2022 02:18, No significant change was found Confirmed by Kenneth Rosado ([id number]) on 02/07/2023 10:47:12 AM Referred By: REFERRED SELF Confirmed By:Kenneth Rosado
--- NOTE | 2023-02-07 10:48 | XRay Report ---
XR chest 1V portable HISTORY: Evaluate line placement. COMPARISON: Chest 02/07/2023. FINDINGS: Endotracheal tube terminates 2 cm from the bernadette. Nasogastric tube terminates below the di aphragm. The tip is not included on this study. No pneumothorax. Patchy bilateral airspace opacities and small bilateral pleural effusions have slightly progressed. The heart remains mildly enlarged. IMPRESSION: 1. Satisfactory support line placement. 2. Slight progression of the patchy bibasilar airspace opacities and small bilateral pleural effusion s. ACT 112: Negative or not required by law. Electronically signed by: James Higuera M.D. 02/07/2023 10:47 AM
--- NOTE | 2023-02-07 11:20 | Critical Care Progress Note ---
Date of Service February 07, 2023 Assessment & Plan (1) Aspiration pneumonitis: Plan: Reason Critically Ill: 47-year-old female presents to the ICU for acute hypoxic respiratory failure following an aspiration event after the patient had ingested marijuana edibles, now requiring mechanical ventilation. Neuro - Acute encephalopathy - History of marijuana edible use, reported as possible recent overdose - D/W denies recent depressive episodes, no verbalized intent to harm Anxiety and depression/borderline personality disordercontinue home medications once patient is extubated and taking p.o. - Additional Hx from , prior mental health hospitalizations which were voluntary in nature. -He does not believe there was ever overdose however he did report if there was it was secondary with melatonin Small fiber neuropathy Myotonic muscular dystrophy -Follows with Nat Chronic coccygeal pain - reports patient treats by consumption of THC tar which she bakes into cookies and consumed multiple cookies -Dosing strategy unclear Sedationpropofol Cardiac - Hx PFO and pulmonary embolism -Obtain echocardiogram with bubble study History of orthostatic hypotension -Midodrine not listed as active per outpatient medication reconciliation Respiratory - Acute hypoxic respiratory failure History of aspiration History pulmonary embolism -Factor V Leiden mutation & chronic immobility secondary to myotonic muscular dystrophy -Patient does have history of pulmonary embolism and is chronically anticoagulated on Coumadin. We will check lower extremity Doppler to rule out DVT for now although low suspicion for PE -Empiric anticoagulation with heparin -It is unclear current plan regarding duration of anticoagulation -No clear indication as to why subtherapeutic (non-compliance?) As warfarin is on med list -Continue empiric antibiotic given secretion burden -Failed spontaneous breathing trial this morning secondary to desaturation: Suspect VQ mismatch - obtain CTA chest to delineate etiology of hypoxia GI - Dysphagia - reports prior attempts at feeding tube placement, this was discontinued -Attempt aborted 08/12/2019: Lack of good window with poor transillumination Transaminitis -Unclear etiology, this appears to be occasionally recurrent -No documented hepatitis serology in our records, will send - Worthy -Urinalysis unremarkable, test negative ENDO - No history of diabetes or thyroid disease, ICU hyperglycemic protocol HEME - Subtherapeutic anticoagulation - reports patient is reportedly taking medication appropriately however the last INR check was reported as subtherapeutic Chronic thrombocytopenia: stable ID - Pneumoniasecondary to aspiration. -Sputum culture and blood cultures are currently pending. -Continue Rocephin for now LINES/IV ACCESS - OG tube, ET tube, Worthy -Discontinue Right femoral central line Once IV access is obtained DVT PROPHYLAXIS - SCDs, heparin drip Disposition: ICU Patient's gave telephone consent for bronchoscopy. I have personally spent 80 minutes of critical care time in the direct management of this patient. This is a life/limb threatening event. This includes time spent evaluating patient, direct bedside care, chart review, placing orders, interpretation of diagnostic studies, discussion with consultants, patient, and family members, as well as other required patient management activities. This time is exclusive of all separately billable procedures, and teaching time and separate from and in addition to any other critical care service time. (2) Respiratory failure: (3) Anxiety: (4) Acute hypoxemic respiratory failure: (5) Dysphagia: (6) Anticoagulant long-term use: (7) Subtherapeutic international normalized ratio (INR): (8) Hypercoagulable state: (9) Heterozygous Factor V Leiden mutation: (10) Thrombocytopenia: Admission and Anticipated Discharge Date Admission Date: February 06, 2023 Results & Data Results & Data Vital Signs (Past 12 Hours) Vital Signs Temp Pulse Resp BP Pulse Ox O2 Del Method FiO2 02/07/23 10:30 50 02/07/23 10:00 37.5 C 88 19 112/62 89 L Mechanical Vent 02/07/23 09:40 37.5 C 90 21 108/76 90 Mechanical Vent 02/07/23 09:46 93 H 22 100 30 02/07/23 08:45 37.4 C 65 18 92/56 L 97 Mechanical Vent 02/07/23 08:00 37.6 C H 84 18 101/62 100 Mechanical Vent 02/07/23 07:15 37.7 C H 69 18 98/58 L 97 Mechanical Vent 02/07/23 07:00 37.6 C H 64 18 97/58 L 99 Mechanical Vent 02/07/23 08:00 84 02/07/23 08:00 Mechanical Vent 30 02/07/23 08:00 30 02/07/23 08:00 21 02/07/23 07:50 79 18 100 30 02/07/23 05:00 37.6 C H 65 18 100 02/07/23 05:00 97/58 L 02/07/23 04:00 37.7 C H 71 18 100 02/07/23 04:00 100/60 02/07/23 03:00 37.7 C H 78 22 100 02/07/23 03:00 125/68 02/07/23 00:00 71 02/07/23 04:00 40 02/07/23 03:58 66 18 100 40 02/07/23 03:47 80 22 100 40 02/07/23 02:00 37.6 C H 80 22 100 02/07/23 02:00 115/75 02/07/23 01:00 37.5 C 80 22 100 02/07/23 01:00 124/93 02/07/23 00:00 37.3 C 68 22 100 02/07/23 00:00 118/80 02/06/23 23:27 111/79 02/06/23 23:27 37.1 C 72 22 100 02/07/23 00:00 40 Coding Level of Care Code 00717 CRITICAL CARE EA ADD 30M Diagnoses Aspiration pneumonitis J69.0 Respiratory failure J96.01 Chronicity: acute Respiratory failure complication: hypoxia Anxiety F41.9 Acute hypoxemic respiratory failure J96.01 Dysphagia R13.10 Anticoagulant long-term use Z79.01 Subtherapeutic international normalized ratio (INR) R79.1 Hypercoagulable state D68.59 Heterozygous Factor V Leiden mutation D68.51 Thrombocytopenia D69.6 (2) Respiratory failure Chronicity: acute Respiratory failure complication: hypoxia Qualified Code(s): J96.01 - Acute respiratory failure with hypoxia
[2023-02-07] MEDS ORDERED: OPTIRAY 320 500ml IV ONE (12:08)
--- NOTE | 2023-02-07 12:15 | CT Scan Report ---
CHEST CTA for PULMONARY ARTERIES CT DOSE: 423.05 mGy.cm HISTORY: Respiratory failure. TECHNIQUE: Multiaxial CT images of the chest were performed following the intravenous administration of contrast to evaluate the pulmonary arteries. Maximal intensity projection images were also obtaine d. A dose lowering technique was utilized adhering to the principles of ALARA. COMPARISON STUDY: Chest CT 02/06/2023. FINDINGS: Endotracheal tube is approximately 5 mm above the bernadette. This should be pulled back by deepak roximately 2 cm. A nasogastric tube is seen below the level the diaphragm. The tip is not included on this study. The visualized liver and spleen are unremarkable. Normal thyroid gland. The heart is bor derline enlarged. Trace bilateral pleural effusions are noted. No significant pericardial effusion. N ormal caliber esophagus. No mediastinal or hilar lymphadenopathy. No acute fractures identified withi n the chest. Normal caliber thoracic aorta with no evidence for a dissection. Suboptimal evaluation o f the bibasilar subsegmental pulmonary arteries due to the motion artifact and consolidation. However , no definite filling defects within the pulmonary arteries to suggest a pulmonary embolus. No pneumo thorax. There are a few partially opacified bilateral lower lobe bronchi. Dense consolidation seen wi thin the bases of the bilateral lower lobes. There are additional scattered patchy airspace opacities seen throughout the lungs. Findings likely represent a multifocal pneumonia and could be due to aspi ration. IMPRESSION: 1. No evidence for a pulmonary embolus. 2. The endotracheal tube terminates 5 mm from the bernadette. This should be pulled back by approximately 2 cm. 3. Multifocal airspace opacities with dense consolidation within the base of the bilateral lower lobe s. This likely represents a pneumonia and could be due to aspiration. 4. The heart is borderline enlarged. 5. Trace bilateral pleural effusions ACT 112: Negative or not required by law. Electronically signed by: James Higuera M.D. 02/07/2023 12:13 PM
[2023-02-07 13:43] LABS: A calco-baum cmplx NotReported Not Detected (NotDetected); Bact fragilis Not Reported Not Detected (NotDetected); C auris Not Reported Not Detected (NotDetected); Calbicans Not Reported Not Detected (NotDetected); Candida glabrata Not Reported Not Detected (NotDetected); Candida krusei Not Reported Not Detected (NotDetected); Cneoformans/gatti Not Reported Not Detected (NotDetected); Cparapsilosis Not Reported Not Detected (NotDetected); Ctropicalis Not Reported Not Detected (NotDetected); E cloacae compx Not Reported Not Detected (NotDetected); Efaecalis Not Reported Not Detected (NotDetected); Efaecium Not Reported Not Detected (NotDetected); Enterobacterales Not Reported Not Detected (NotDetected); Escherichia coli Not Reported Not Detected (NotDetected); H influenzae Not Reported Not Detected (NotDetected); K aerogenes Not Reported Not Detected (NotDetected); Koxytoca Not Reported Not Detected (NotDetected); Kpneumoniae grp Not Reported Not Detected (NotDetected); Lmonocyt Not Reported Not Detected (NotDetected); N meningitidis Not Reported Not Detected (NotDetected); P aeruginosa Not Reported Not Detected (NotDetected); Proteus spp Not Reported Not Detected (NotDetected); Salmonella spp Not Reported Not Detected (NotDetected); Smarcescens Not Reported Not Detected (NotDetected); Staph lugdunensis Not Reported Not Detected (NotDetected); Staph spp. Not Reported DETECTED (NotDetected); Staphaureus Not Reported Not Detected (NotDetected); Staphepi Not Reported Not Detected (NotDetected); Stenmaltophilia Not Reported Not Detected (NotDetected); Strep agal(GrpB) Not Reported Not Detected (NotDetected); Strep pneum Not Reported Not Detected (NotDetected); Strep pyog (GrpA) Not Reported Not Detected (NotDetected); Strep spp Not Reported Not Detected (NotDetected)
[2023-02-07 13:50] LABS: Staphylococcus spp. DETECTED (NotDetected)
[2023-02-07 14:43] LABS: Partial Thromboplastin Ratio 2.5
[2023-02-07 14:47] LABS: Partial Thromboplastin Time 70.1 Seconds (21.0-31.0)
--- NOTE | 2023-02-07 17:46 | Hospitalist Progress Note ---
Date of Service February 07, 2023 Assessment & Plan (1) Respiratory failure: Plan: Per admitting service notes with addendum: Acute hypoxic respiratory failure Secondary to aspiration pneumonia Recent consumption of marijuana cookies, hx IBS/gastroparesis -- Remains intubated, sedated -- Blood cultures: Pending --Continue IV ceftriaxone Continue weaning efforts --Further management of mechanical ventilator per [facility] assistant director service, appreciate recommendations Severe sepsis secondary to above hypercoagulable state (history PE, factor V Leiden mutation as per records) on Coumadin, INR subtherapeutic --Currently on heparin drip hx orthostatic hypotension as per records, patient not currently on prior midodrine Rx --Monitor blood pressure hx myotonic dystrophy borderline personality disorder/anxiety/mood disorder history of traumatic brain injury prediabetes, hemoglobin A1c of 5.6 2020 transaminitis, possible fatty liver disease with note of hepatic change in outpatient CT abdomen pelvis October 2022 chronic thrombocytopenia DVT prophylaxis. Weight-based Lovenox GI prophylaxis. Famotidine Full code Disposition Pending Lives at home with her Admission and Anticipated Discharge Date Admission Date: February 06, 2023 Subjective Follow-up for aspiration pneumonia, acute hypoxic respiratory failure, etc. Patient remains on mechanical ventilator, on propofol Trial of weaning performed this morning, unsuccessful, patient desaturated Seen resting in bed, not in distress, no signs of respiratory distress, or pain Discussed with RN, no other acute issues Review of Systems Review of Systems: all noted and negative except for above Physical Exam Physical Exam: General-intubated, sedated, no signs of distress, no accessory muscle use Eyes- anicteric Neck- no JVD Lungs-positive mild rhonchi anteriorly, no wheezing, good air entry bilaterally Heart- normal rate, regular rhythm; no murmurs Abdomen- normal bowel sounds, nondistended, soft, nontender Extremities- no pretibial edema, no calf tenderness Neuro-sedated Skin- warm & dry Results & Data Results & Data Vital Signs (Past 12 Hours) Vital Signs Temp Pulse Resp BP Pulse Ox O2 Del Method FiO2 02/07/23 16:00 50 02/07/23 14:40 56 L 18 97 50 02/07/23 14:00 37.5 C 55 L 18 106/66 96 Mechanical Vent 50 02/07/23 13:00 37.4 C 88 19 116/74 97 Mechanical Vent 50 02/07/23 12:53 37.4 C 93 H 20 133/86 96 Mechanical Vent 50 02/07/23 12:21 37.5 C 88 19 110/78 96 Mechanical Vent 50 02/07/23 12:22 37.5 C 80 19 110/78 95 Mechanical Vent 50 02/07/23 11:00 37.7 C H 60 19 91/54 L 95 Mechanical Vent 50 02/07/23 12:00 50 02/07/23 10:30 50 02/07/23 10:00 37.5 C 88 19 112/62 89 L Mechanical Vent 30 02/07/23 09:40 37.5 C 90 21 108/76 90 Mechanical Vent 30 02/07/23 09:46 93 H 22 100 30 02/07/23 08:45 37.4 C 65 18 92/56 L 97 Mechanical Vent 30 02/07/23 08:00 37.6 C H 84 18 101/62 100 Mechanical Vent 30 02/07/23 07:15 37.7 C H 69 18 98/58 L 97 Mechanical Vent 30 02/07/23 07:00 37.6 C H 64 18 97/58 L 99 Mechanical Vent 30 02/07/23 08:00 84 02/07/23 08:00 Mechanical Vent 30 02/07/23 08:00 30 02/07/23 08:00 21 02/07/23 07:50 79 18 100 30 all noted and reviewed including below (1) Respiratory failure Chronicity: acute Respiratory failure complication: hypoxia Qualified Code(s): J96.01 - Acute respiratory failure with hypoxia
[2023-02-07] MEDS: D5W AND 1/2NSS 1,000 ML IV SCH (21:21)
[2023-02-07 21:54] LABS: Partial Thromboplastin Ratio 2.2
[2023-02-07 22:08] LABS: Partial Thromboplastin Time 62.1 Seconds (21.0-31.0)
[2023-02-07] MEDS: HEPARIN SODIUM/DEXTROSE 25,000 UNITS/500 ML BAG IV SCH (22:17)
[2023-02-08] MEDS: PROPOFOL BOLUS FROM BAG IV PRN ×2 (01:00→06:24)
[2023-02-08] MEDS: fentaNYL citrate PF 100 MCG/2 ML VIAL IV PRN (01:16)
[2023-02-08 03:40] LABS: iSTAT Allen Test Pass; iSTAT Art Bld Gas pCO2 Correct 37 mmHg (35-46); iSTAT Art Bld Gas pH Corrected 7.403 (7.35-7.45); iSTAT Arterial Blood Gas HCO3 23 meg/L (19-24); iSTAT Arterial Blood Gas pCO2 35 mmHg (35-46); iSTAT Arterial Blood Gas pH 7.42 (7.35-7.45); iSTAT Arterial Blood Gas pO2 66 mmHg (80-95); iSTAT Arterial Blood Gas pO2 C 72; iSTAT Carbon Dioxide 24 mmol/L (24-31); iSTAT FiO2 50 %; iSTAT Hematocrit 24 % (37-47); iSTAT Hemoglobin 8.2 g/dl (12.0-16.0); iSTAT Site L Radial; iSTAT Sodium 146 mmol/L (135-144)
[2023-02-08] MEDS: propofoL 1,000 MG/100 ML VIAL IV SCH ×6 (05:12→22:17)
[2023-02-08] MEDS: ACETAMINOPHEN 1,000 MG/100 ML VIAL IV PRN ×2 (05:13→13:10)
[2023-02-08 05:41] LABS: Basophils # (auto) 0.01 K/uL (0-0.2); Basophils % (auto) 0.2 %; Eosinophils # (auto) 0.05 K/uL (0-0.50); Eosinophils % (auto) 0.9 %; Hematocrit (blood only) 31.4 % (37.0-47.0); Hemoglobin 9.9 g/dl (12.0-16.0); Immature Granulocytes # (auto) 0.03 K/uL (0.01-0.20); Immature Granulocytes % (auto) 0.5 %; Lymphocytes # (auto) 1.09 K/uL (1.2-3.4); Mean Corpuscular Hemoglobin 30.1 pg (25.0-34.0); Mean Corpuscular Hgb Conc 31.5 g/dL (32.0-36.0); Mean Corpuscular Volume 95.4 fL (80.0-100.0); Mean Platelet Volume 13.3 fL (9.4-12.4); Monocytes # (auto) 0.23 K/uL (0.11-0.59); Neutrophils # (auto) 4.34 K/uL (1.40-6.50); Neutrophils % (auto) 75.4 %; Platelet Count 95 K/uL (130-400); RDW Coefficient of Variation 16.3 % (11.5-14.5); RDW Standard Deviation 57.5 fL (36.4-46.3); Red Blood Count 3.29 M/uL (4.20-5.40); White Blood Count 5.75 K/ul (4.8-10.8)
[2023-02-08 05:48] LABS: BUN Creatinine Ratio 11.1 (10-20); Creatinine Clr Calc Pharmacy 97.2 ml/min; Est GFR (African American) 125.6 ml/min; Est GFR (Non-African American) 108.3 ml/min; Phosphorus 1.8 mg/dl (2.5-4.9); Potassium 3.5 mmol/L (3.5-5.1)
[2023-02-08 05:58] LABS: Partial Thromboplastin Ratio 1.3; Partial Thromboplastin Time 36.8 Seconds (21.0-31.0)
[2023-02-08] MEDS ORDERED: POTASSIUM PHOS 3 MMOL/1 ML INFUSION IV STA (06:53)
--- NOTE | 2023-02-08 07:17 | XRay Report ---
XR chest 1V portable CLINICAL HISTORY: Respiratory failure. COMPARISON STUDY: Chest radiograph and chest CT February 07, 2023. FINDINGS: Tip of endotracheal tube is 4.2 cm above the bernadette. Tip of nasogastric tube is below lower aspect of this image but at least within the body of the stomach. There is no pneumothorax. Cardiome diastinal silhouette is stable. Extensive bibasilar opacities have mildly improved. IMPRESSION: 1. Satisfactory positioning of the endotracheal and nasogastric tubes. 2. Extensive bibasilar opacities which have mildly improved. These favor pneumonia/aspiration pneumon itis. ACT 112: Negative or not required by law. Electronically signed by: Eulogio Moya M.D. 02/08/2023 7:15 AM
[2023-02-08] MEDS ORDERED: POTASSIUM PHOSPHATE 30 MMOL in DEXTROSE 5% 500 ML IV ONE (07:30)
[2023-02-08] MEDS: cefTRIAXone SODIUM 2,000 MG in DEXTROSE 5% 50 ML IV SCH (07:47)
[2023-02-08] MEDS: ICU Protocol for HYPERglycemia SCH ×4 (07:56→20:32)
[2023-02-08] MEDS: FAMOTIDINE 20 MG in SYRINGE 3 ML IV SCH ×2 (07:56→20:27)
--- NOTE | 2023-02-08 09:56 | Procedure Note ---
Procedure Note Date of Service February 08, 2023 Note Procedure date: Noted above Procedure: fiberoptic bronchoscopy Pre-procedure indication: Acute hypoxic respiratory failure, aspiration fever Post-procedure Diagnosis: same as above Prior to Procedure: Informed Consent: The risks, benefits, indications, potential complications, and alternatives were explained to the patient's and informed consent obtained. Attending Staff: Natasha Newell DO Resident/APC: Not applicable Skin Prep: Not applicable Anesthesia: Continuous infusion The identity of the patient was confirmed and a bedside time out was performed. Description of Procedure: Fiberoptic bronchoscopy was performed via endotracheal tube. Bronchioalveolar lavage of the left lower lobe was performed. Findings included: Mucopurulent secretions suctioned predominantly from the left lower lobe. [place] appearance. No significant hyponatremia in the airways. Complications: None Specimens: Bronchial washings sent for culture and Gram stain, fungal elements, AFB stain and culture, cell count differential. Estimated blood loss: Zero Coding CPT Codes Pulmonary/Thoracic - Pulmonary and Thoracic: 57879 Dx bronchoscopy/BAL ([id number]) [facility] [place] Codes (Charges) Pulmonary/Thoracic Procedure 1: Pulmonary and Thoracic: 76196 Dx bronchoscopy/BAL
[2023-02-08] MEDS: D5W AND 1/2NSS 1,000 ML IV SCH (10:43)
--- NOTE | 2023-02-08 10:47 | Critical Care Progress Note ---
Date of Service February 08, 2023 Assessment & Plan (1) Aspiration pneumonitis: Plan: Reason Critically Ill: 47-year-old female presents to the ICU for acute hypoxic respiratory failure following an aspiration event after the patient had ingested marijuana edibles, now requiring mechanical ventilation. Neuro - Acute encephalopathy - History of marijuana edible use, reported as possible recent overdose - D/W denies recent depressive episodes, no verbalized intent to harm Anxiety and depression/borderline personality disordercontinue home medications once patient is extubated and taking p.o. - Additional Hx from , prior mental health hospitalizations which were voluntary in nature. -He does not believe there was ever overdose however he did report if there was it was secondary with melatonin Small fiber neuropathy Myotonic muscular dystrophy -Follows with Nat Chronic coccygeal pain - reports patient treats by consumption of THC tar which she bakes into cookies and consumed multiple cookies -Dosing strategy unclear Sedationpropofol Cardiac - Hx PFO -Echocardiogram with bubble study: Reported as limited bubble study, no evidence of right to left shunting History of orthostatic hypotension -Midodrine not listed as active per outpatient medication reconciliation Respiratory - Acute hypoxic respiratory failure History of aspiration: Aspiration pneumonitis -Status post bronchoscopy, will attempt spontaneous breathing trial after 12 PM: I suspect patient will require additional mechanical ventilation secondary to secretion burden -Expanding antibiotic coverage -Higher PEEP secondary to presumptive VQ mismatch from lower lobe atelectasis History pulmonary embolism: Stable -Factor V Leiden mutation & chronic immobility secondary to myotonic muscular dystrophy -CTA does not demonstrate PE - anticoagulation with heparin - reports chronic systemic anticoagulation -No clear indication as to why subtherapeutic (non-compliance?) GI - Dysphagia - reports prior attempts at feeding tube placement, this was discontinued -Attempt aborted 08/12/2019: Lack of good window with poor transillumination -Would consider reevaluation as patient had recurrent aspiration events since last attempted PEG placement, possible GI consult Thursday Transaminitis -Unclear etiology, this appears to be occasionally recurrent -No documented hepatitis serology in our records, will send Start tube feeding - Worthy -Urinalysis unremarkable, test negative ENDO - No history of diabetes or thyroid disease, ICU hyperglycemic protocol HEME - Subtherapeutic anticoagulation -Continue heparin infusion until evaluation by GI/surgery for possible PEG tube Chronic thrombocytopenia: stable ID - Febrile illness Staphylococcal growth in blood culture 1 of 2 bottles -Suspect contaminant -Repeat cultures sent Presumptive aspiration pneumonia -Bronchoscopic obtained culture sent -Expanding from Rocephin to Zosyn LINES/IV ACCESS - OG tube, ET tube, Worthy -Discontinue Right femoral central line Once IV access is obtained -Ultrasound IV team reports no adequate vessel to obtain IV access, will have team reevaluate today DVT PROPHYLAXIS - SCDs, heparin drip Disposition: ICU I have personally spent 50 minutes of critical care time in the direct management of this patient. This is a life/limb threatening event. This includes time spent evaluating patient, direct bedside care, chart review, placing orders, interpretation of diagnostic studies, discussion with consultants, patient, and family members, as well as other required patient management activities. This time is exclusive of all separately billable procedures, and teaching time and separate from and in addition to any other critical care service time. (2) Respiratory failure: (3) Anxiety: (4) Acute hypoxemic respiratory failure: (5) Dysphagia: (6) Anticoagulant long-term use: (7) Subtherapeutic international normalized ratio (INR): (8) Hypercoagulable state: (9) Heterozygous Factor V Leiden mutation: (10) Thrombocytopenia: Admission and Anticipated Discharge Date Admission Date: February 06, 2023 Subjective Became febrile overnight. Review of Systems Review of Systems: Unobtainable due to endotracheal tube Physical Exam Physical Exam: General: Sedated. nontoxic. Skin: Warm, dry, Head: Atraumatic Ears, nose, mouth and throat: airway obscured by endotracheal tube Cardiovascular: Normal peripheral perfusion Respiratory: Ventilator settings reviewed Gastrointestinal: Non distended Musculoskeletal: No deformity Results & Data Results & Data Vital Signs (Past 12 Hours) Vital Signs Temp Pulse Resp BP Pulse Ox O2 Del Method FiO2 02/08/23 10:00 38.3 C H 104 H 21 118/58 L 93 Mechanical Vent 50 02/08/23 09:53 38.2 C H 113 H 22 120/56 L 90 Mechanical Vent 50 02/08/23 09:50 38.2 C H 117 H 22 139/84 94 Mechanical Vent 50 02/08/23 09:48 38.3 C H 111 H 20 128/78 99 Mechanical Vent 100 02/08/23 09:45 38.3 C H 120 H 24 146/87 H 100 Mechanical Vent 100 02/08/23 09:43 38.3 C H 125 H 18 158/104 H 99 Mechanical Vent 100 02/08/23 09:30 38.4 C H 106 H 18 144/80 H 92 Mechanical Vent 50 02/08/23 09:15 38.4 C H 108 H 21 121/69 92 Mechanical Vent 50 02/08/23 09:00 38.4 C H 105 H 18 126/68 92 Mechanical Vent 50 02/08/23 08:00 38.3 C H 105 H 23 118/72 92 Mechanical Vent 50 02/08/23 07:00 38.6 C H 62 18 106/60 94 Mechanical Vent 50 02/08/23 09:50 109 H 22 92 50 02/08/23 09:40 Mechanical Vent 02/08/23 07:49 94 H 22 95 50 02/08/23 07:00 Mechanical Vent 50 02/08/23 07:00 50 02/08/23 06:00 38.9 C H 112 H 21 94 02/08/23 06:00 100/68 02/08/23 05:31 38.9 C H 124 H 19 93 02/08/23 05:31 117/59 L 02/08/23 05:00 38.6 C H 139 H 30 H 89 L 02/08/23 04:00 38.4 C H 55 L 18 95 02/08/23 04:00 94/53 L 02/08/23 03:02 38.2 C H 88 3 L 91 02/08/23 03:02 106/53 L 02/08/23 03:00 38.2 C H 84 13 92 02/08/23 02:00 38.3 C H 54 L 5 L 92 02/08/23 01:00 38.2 C H 90 19 95 02/08/23 01:00 113/79 02/08/23 00:00 38.1 C H 79 16 97 02/08/23 00:00 110/63 02/08/23 04:00 50 02/08/23 03:30 57 L 19 100 50 02/08/23 00:00 50 02/07/23 23:23 73 02/07/23 23:00 38.1 C H 56 L 18 97 02/07/23 23:00 90/56 L Critical Care Results & Data Vital Signs (Past 12 Hours) Vital Signs Temp Pulse Resp BP Pulse Ox O2 Del Method FiO2 02/08/23 10:00 38.3 C H 104 H 21 118/58 L 93 Mechanical Vent 50 02/08/23 09:53 38.2 C H 113 H 22 120/56 L 90 Mechanical Vent 50 02/08/23 09:50 38.2 C H 117 H 22 139/84 94 Mechanical Vent 50 02/08/23 09:48 38.3 C H 111 H 20 128/78 99 Mechanical Vent 100 02/08/23 09:45 38.3 C H 120 H 24 146/87 H 100 Mechanical Vent 100 02/08/23 09:43 38.3 C H 125 H 18 158/104 H 99 Mechanical Vent 100 02/08/23 09:30 38.4 C H 106 H 18 144/80 H 92 Mechanical Vent 50 02/08/23 09:15 38.4 C H 108 H 21 121/69 92 Mechanical Vent 50 02/08/23 09:00 38.4 C H 105 H 18 126/68 92 Mechanical Vent 50 02/08/23 08:00 38.3 C H 105 H 23 118/72 92 Mechanical Vent 50 02/08/23 07:00 38.6 C H 62 18 106/60 94 Mechanical Vent 50 02/08/23 09:50 109 H 22 92 50 02/08/23 09:40 Mechanical Vent 02/08/23 07:49 94 H 22 95 50 02/08/23 07:00 Mechanical Vent 50 02/08/23 07:00 50 02/08/23 06:00 38.9 C H 112 H 21 94 02/08/23 06:00 100/68 02/08/23 05:31 38.9 C H 124 H 19 93 02/08/23 05:31 117/59 L 02/08/23 05:00 38.6 C H 139 H 30 H 89 L 02/08/23 04:00 38.4 C H 55 L 18 95 02/08/23 04:00 94/53 L 02/08/23 03:02 38.2 C H 88 3 L 91 02/08/23 03:02 106/53 L 02/08/23 03:00 38.2 C H 84 13 92 02/08/23 02:00 38.3 C H 54 L 5 L 92 02/08/23 01:00 38.2 C H 90 19 95 02/08/23 01:00 113/79 02/08/23 00:00 38.1 C H 79 16 97 02/08/23 00:00 110/63 02/08/23 04:00 50 02/08/23 03:30 57 L 19 100 50 02/08/23 00:00 50 02/07/23 23:23 73 02/07/23 23:00 38.1 C H 56 L 18 97 02/07/23 23:00 90/56 L Lab & Micro Results (Past 24 Hours) RBC 3.29 M/uL (4.20-5.40) L 02/08/23 WBC 5.75 K/ul (4.8-10.8) 02/08/23 Hgb 9.9 g/dl (12.0-16.0) L 02/08/23 Hct 31.4 % (37.0-47.0) L 02/08/23 MCV 95.4 fL (80.0-100.0) 02/08/23 MCH 30.1 pg (25.0-34.0) 02/08/23 MCHC 31.5 g/dL (32.0-36.0) L 02/08/23 RDW Standard Deviation 57.5 fL (36.4-46.3) H 02/08/23 RDW Coefficient of Variation 16.3 % (11.5-14.5) H 02/08/23 Plt Count 95 K/uL (130-400) L 02/08/23 MPV 13.3 fL (9.4-12.4) H 02/08/23 Neutrophils (%) (Auto) 75.4 % 02/08/23 Lymphocytes (%) (Auto) 19.0 % 02/08/23 Monocytes # (Auto) 0.23 K/uL (0.11-0.59) 02/08/23 Eosinophils # (Auto) 0.05 K/uL (0-0.50) 02/08/23 Immature Granulocyte % (Auto) 0.5 % 02/08/23 Neutrophils # (Auto) 4.34 K/uL (1.40-6.50) 02/08/23 Lymphocytes # (Auto) 1.09 K/uL (1.2-3.4) L 02/08/23 Monocytes # (Auto) 0.23 K/uL (0.11-0.59) 02/08/23 Eosinophils # (Auto) 0.05 K/uL (0-0.50) 02/08/23 Basophils # (Auto) 0.01 K/uL (0-0.2) 02/08/23 Immature Granulocyte # (Auto) 0.03 K/uL (0.01-0.20) 3 Na 144 mmol/L (136-145) 02/08/23 K 3.5 mmol/L (3.5-5.1) 02/08/23 Cl 114 mmol/L (98-107) H 02/08/23 CO2 27 mmol/L (21-32) 02/08/23 Anion Gap 3 (3-11) 02/08/23 BUN 7 mg/dl (6-23) 02/08/23 Creatinine 0.63 mg/dl (0.6-1.2) 02/08/23 Estimated GFR ( Amer) 125.6 ml/min 02/08/23 Estimated GFR (Non-Af Amer) 108.3 ml/min 02/08/23 BUN/Creatinine Ratio 11.1 (10-20) 02/08/23 Glu 102 mg/dl (70-99(Fasting)) H 02/08/23 Ca 9.0 mg/dl (8.6-10.3) 02/08/23 Phosphorus Level 1.8 mg/dl (2.5-4.9) L 02/08/23 Mg 2.0 mg/dl (1.7-2.4) 02/08/23 04:49 Calcium Level 9.0 mg/dl (8.6-10.3) 02/08/23 04:49 Maurice Test Pass 02/08/23 03:25 Microbiology 02/08/23 05:05 Gram Stain - Final Sputum,Vent Suction 02/06/23 18:48 Aerobic Blood Culture - Preliminary Blood No growth in Aerobic bottle after 24 hours. Anaerobic Blood Culture - Preliminary No growth in Anaerobic bottle after 24 hours. 02/06/23 17:46 Aerobic Blood Culture - Preliminary Blood Gram positive cocci clusters Anaerobic Blood Culture - Preliminary No growth in Anaerobic bottle after 24 hours. Diagnostic Findings (Past 24 Hours) Chest X-Ray 02/07/23 10:18 XR chest 1V portable HISTORY: Evaluate line placement. COMPARISON: Chest 02/07/2023. FINDINGS: Endotracheal tube terminates 2 cm from the bernadette. Nasogastric tube terminates below the diaphragm. The tip is not included on this study. No pneumothorax. Patchy bilateral airspace opacities and small bilateral pleural effusions have slightly progressed. The heart remains mildly enlarged. IMPRESSION: 1. Satisfactory support line placement. 2. Slight progression of the patchy bibasilar airspace opacities and small bilateral pleural effusions. ACT 112: Negative or not required by law. Electronically signed by: James Higuera M.D. 02/07/2023 10:47 AM Chest CTA 02/07/23 11:30 CHEST CTA for PULMONARY ARTERIES CT DOSE: 423.05 mGy.cm HISTORY: Respiratory failure. TECHNIQUE: Multiaxial CT images of the chest were performed following the intravenous administration of contrast to evaluate the pulmonary arteries. Maximal intensity projection images were also obtained. A dose lowering technique was utilized adhering to the principles of ALARA. COMPARISON STUDY: Chest CT 02/06/2023. FINDINGS: Endotracheal tube is approximately 5 mm above the bernadette. This should be pulled back by approximately 2 cm. A nasogastric tube is seen below the level the diaphragm. The tip is not included on this study. The visualized liver and spleen are unremarkable. Normal thyroid gland. The heart is borderline enlarged. Trace bilateral pleural effusions are noted. No significant pericardial effusion. Normal caliber esophagus. No mediastinal or hilar lymphadenopathy. No acute fractures identified within the chest. Normal caliber thoracic aorta with no evidence for a dissection. Suboptimal evaluation of the bibasilar subs egmental pulmonary arteries due to the motion artifact and consolidation. However, no definite filling defects within the pulmonary arteries to suggest a pulmonary embolus. No pneumothorax. There are a few partially opacified bilateral lower lobe bronchi. Dense consolidation seen within the bases of the bilateral lower lobes. There are additional scattered patchy airspace opacities seen throughout the lungs. Findings likely represent a multifocal pneumonia and could be due to aspiration. IMPRESSION: 1. No evidence for a pulmonary embolus. 2. The endotracheal tube terminates 5 mm from the bernadette. This should be pulled back by approximately 2 cm. 3. Multifocal airspace opacities with dense consolidation within the base of the bilateral lower lobes. This likely represents a pneumonia and could be due to aspiration. 4. The heart is borderline enlarged. 5. Trace bilateral pleural effusions ACT 112: Negative or not required by law. Electronically signed by: James Higuera M.D. 02/07/2023 12:13 PM Chest X-Ray 02/08/23 07:00 XR chest 1V portable CLINICAL HISTORY: Respiratory failure. COMPARISON STUDY: Chest radiograph and chest CT February 07, 2023. FINDINGS: Tip of endotracheal tube is 4.2 cm above the bernadette. Tip of nasogastric tube is below lower aspect of this image but at least within the body of the stomach. There is no pneumothorax. Cardiomediastinal silhouette is stable. Extensive bibasilar opacities have mildly improved. IMPRESSION: 1. Satisfactory positioning of the endotracheal and nasogastric tubes. 2. Extensive bibasilar opacities which have mildly improved. These favor pneumonia/aspiration pneumonitis. ACT 112: Negative or not required by law. Electronically signed by: Eulogio Moya M.D. 02/08/2023 7:15 AM I & O Totals 24 Hours 02/07/23 02/08/23 02/09/23 06:59 06:59 06:59 Intake Total 3292.997 / 3292.997 3893.239 / 3893.239 123.859 / 123.859 Output Total 875 / 875 1550 / 1550 1300 / 1300 Balance 2417.997 / 2417.997 2343.239 / 2343.239 -1176.141 / -1176.141 Cumulative 02/06/23 17:10 thru 02/08/23 10:22 Intake Total 7310.095 Output Total 3725 Balance 3585.095 RT Ventilator Mngmt (Last Documented) Ventilator Ordered Settings Ventilator Support Mode Assist Control 02/08/23 09:50 Respiratory Rate 21 02/08/23 10:00 Ventilator Tidal Volume 350 02/08/23 09:50 Setting Minute Ventilation 7.3 02/08/23 09:50 Ventilator Positive Pressure 10 02/07/23 08:00 Support Setting Positive End Expiratory 14 02/08/23 09:50 Pressure Fraction of Inspired Oxygen 50 02/08/23 10:00 Machine Comment PEEP adjusted to +14 post-bronch 02/08/23 09:50 per verbal by Ventilator - PT Measurements Respiratory Rate 21 Exhaled Tidal Volume 353 Minute Ventilation 7.3 Peak Inspiratory Airway 24 Pressure Plateau Pressure 25 Respiratory Cycle Inspiratory: 1:2.9 Expiratory Ratio Inspiratory Phase Time 0.80 End-Tidal CO2 39 Static Lung Compliance 32.09 Dynamic Lung Compliance 35.30 Normal Static Lung Compliance 48.00 Patient Measurements Comment ETT pulled back again by 2cm per post CT Coding Level of Care Code 12285 CRITICAL CARE 1ST 30-74M Diagnoses Aspiration pneumonitis J69.0 Respiratory failure J96.01 Chronicity: acute Respiratory failure complication: hypoxia Anxiety F41.9 Acute hypoxemic respiratory failure J96.01 Dysphagia R13.10 Anticoagulant long-term use Z79.01 Subtherapeutic international normalized ratio (INR) R79.1 Hypercoagulable state D68.59 Heterozygous Factor V Leiden mutation D68.51 Thrombocytopenia D69.6 (2) Respiratory failure Chronicity: acute Respiratory failure complication: hypoxia Qualified Code(s): J96.01 - Acute respiratory failure with hypoxia
[2023-02-08] MEDS ORDERED: PIPERACILLIN/TAZOBACTAM 4.5 GM in DEXTROSE 5% 100 ML IV ONE (11:00)
[2023-02-08] MEDS: PEPTAMEN INTENSE VHP 1.0 CAL 1,000 ML BAG OG SCH (11:40)
[2023-02-08 12:17] LABS: Fluid Mono/Macrophage 1 %; Lymphocyte Body Fluid Man 0 %; Neutrophil Body Fluid Man 99 %
[2023-02-08 12:56] LABS: Partial Thromboplastin Ratio 1.7
[2023-02-08 13:21] LABS: Partial Thromboplastin Time 46.8 Seconds (21.0-31.0)
[2023-02-08] MEDS: PIPERACILLIN/TAZOBACTAM 4.5 GM in DEXTROSE 5% 100 ML IV SCH (16:25)
--- NOTE | 2023-02-08 18:35 | Hospitalist Progress Note ---
Date of Service February 08, 2023 Assessment & Plan (1) Respiratory failure: Plan: Per admitting service notes with addendum: Acute hypoxic respiratory failure Secondary to aspiration pneumonia Recent consumption of marijuana cookies, hx IBS/gastroparesis -- Remains intubated, sedated --02/08: Status post bronchoscopy Fiberoptic bronchoscopy was performed via endotracheal tube. Bronchioalveolar lavage of the left lower lobe was performed. Findings included: Mucopurulent secretions suctioned predominantly from the left lower lobe. Dishwater appearance. No significant hyponatremia in the airways. -- Blood cultures: Negative so far -- Ceftriaxone changed to Zosyn Continue weaning efforts --Tube feeding started --Further management of mechanical ventilator per shop tailor apprentice service, appreciate recommendations Severe sepsis secondary to above hypercoagulable state (history PE, factor V Leiden mutation as per records) on Coumadin, INR subtherapeutic --Currently on heparin drip hx orthostatic hypotension as per records, patient not currently on prior mi dodrine Rx --Monitor blood pressure hx myotonic dystrophy borderline personality disorder/anxiety/mood disorder history of traumatic brain injury prediabetes, hemoglobin A1c of 5.6 2020 transaminitis, possible fatty liver disease with note of hepatic change in outpatient CT abdomen pelvis October 2022 chronic thrombocytopenia DVT prophylaxis. Heparin drip GI prophylaxis. Famotidine Full code Disposition Pending Lives at home with her Admission and Anticipated Discharge Date Admission Date: February 06, 2023 Subjective Follow-up for acute hypoxic respiratory failure, aspiration pneumonia, etc. Status post bronchoscopy this afternoon Remains on the ventilator, sedated with propofol Not in distress, no signs of pain Tube feeding in progress Discussed with RN No other new signs or symptoms noted Review of Systems Review of Systems: all noted and negative except for above Physical Exam Physical Exam: General-on [facility] vent, sedated, not in distress Eyes- anicteric Neck- no JVD Lungs-mild rhonchi anteriorly, no wheezing Heart- normal rate, regular rhythm; no murmurs Abdomen- normal bowel sounds, nondistended, soft, nontender Extremities- no pretibial edema, no calf tenderness Neuro-sedated Skin- warm & dry Results & Data Results & Data Vital Signs (Past 12 Hours) Vital Signs Temp Pulse Resp BP Pulse Ox O2 Del Method FiO2 02/08/23 18:00 38.6 C H 81 19 110/60 96 Mechanical Vent 40 02/08/23 17:30 38.6 C H 67 18 102/57 L 97 Mechanical Vent 40 02/08/23 17:00 38.5 C H 79 19 102/58 L 96 Mechanical Vent 40 02/08/23 16:35 38.4 C H 85 18 116/73 95 Mechanical Vent 40 02/08/23 16:30 38.4 C H 59 L 18 92/57 L 97 Mechanical Vent 40 02/08/23 16:12 38.3 C H 74 18 105/56 L 96 Mechanical Vent 40 02/08/23 16:00 38.4 C H 59 L 18 99/56 L 97 Mechanical Vent 40 02/08/23 15:30 38.5 C H 62 18 100/54 L 95 Mechanical Vent 40 02/08/23 16:00 58 L 02/08/23 08:00 101 H 02/08/23 16:00 40 02/08/23 15:00 38.4 C H 63 18 102/55 L 94 Mechanical Vent 40 02/08/23 14:30 38.4 C H 61 15 98/56 L 97 Mechanical Vent 30 02/08/23 14:00 38.6 C H 65 18 96/5 L 96 Mechanical Vent 30 02/08/23 13:30 38.6 C H 67 19 106/54 L 94 Mechanical Vent 40 02/08/23 13:09 38.6 C H 96 H 20 101/65 90 Mechanical Vent 40 02/08/23 13:00 38.6 C H 94 H 18 99/80 L 90 Mechanical Vent 40 02/08/23 12:30 38.7 C H 78 19 103/65 95 Mechanical Vent 50 02/08/23 12:00 38.6 C H 90 20 90/52 L 95 Mechanical Vent 50 02/08/23 11:30 38.6 C H 97 H 20 105/72 92 Mechanical Vent 50 02/08/23 14:45 67 19 97 30 02/08/23 13:00 91 H 19 93 40 02/08/23 12:00 50 02/08/23 11:06 38.6 C H 65 18 98/59 L 96 Mechanical Vent 50 02/08/23 10:30 38.6 C H 112 H 21 141/73 H 89 L Mechanical Vent 50 02/08/23 10:00 38.3 C H 104 H 21 118/58 L 93 Mechanical Vent 50 02/08/23 09:53 38.2 C H 113 H 22 120/56 L 90 Mechanical Vent 50 02/08/23 09:50 38.2 C H 117 H 22 139/84 94 Mechanical Vent 50 02/08/23 09:48 38.3 C H 111 H 20 128/78 99 Mechanical Vent 100 02/08/23 09:45 38.3 C H 120 H 24 146/87 H 100 Mechanical Vent 100 02/08/23 09:43 38.3 C H 125 H 18 158/104 H 99 Mechanical Vent 100 02/08/23 09:30 38.4 C H 106 H 18 144/80 H 92 Mechanical Vent 50 02/08/23 09:15 38.4 C H 108 H 21 121/69 92 Mechanical Vent 50 02/08/23 09:00 38.4 C H 105 H 18 126/68 92 Mechanical Vent 50 02/08/23 08:00 38.3 C H 105 H 23 118/72 92 Mechanical Vent 50 02/08/23 07:00 38.6 C H 62 18 106/60 94 Mechanical Vent 50 02/08/23 09:50 109 H 22 92 50 02/08/23 09:40 Mechanical Vent 02/08/23 07:49 94 H 22 95 50 02/08/23 07:00 Mechanical Vent 50 02/08/23 07:00 50 all noted and reviewed including below (1) Respiratory failure Chronicity: acute Respiratory failure complication: hypoxia Qualified Code(s): J96.01 - Acute respiratory failure with hypoxia
[2023-02-09] MEDS: HEPARIN SODIUM/DEXTROSE 25,000 UNITS/500 ML BAG IV SCH ×2 (00:42→23:55)
[2023-02-09] MEDS: PIPERACILLIN/TAZOBACTAM 4.5 GM in DEXTROSE 5% 100 ML IV SCH ×4 (00:42→23:52)
[2023-02-09] MEDS: PROPOFOL BOLUS FROM BAG IV PRN ×2 (00:42→20:49)
[2023-02-09] MEDS: propofoL 1,000 MG/100 ML VIAL IV SCH ×5 (02:53→23:55)
[2023-02-09 04:27] LABS: iSTAT Allen Test Pass; iSTAT Arterial Blood Gas HCO3 25 meg/L (19-24); iSTAT Arterial Blood Gas pCO2 40 mmHg (35-46); iSTAT Arterial Blood Gas pH 7.41 (7.35-7.45); iSTAT Arterial Blood Gas pO2 66 mmHg (80-95); iSTAT Carbon Dioxide 26 mmol/L (24-31); iSTAT FiO2 50 %; iSTAT Site R Radial
[2023-02-09] MEDS: PROMETHAZINE HCL 12.5 MG in SODIUM CHLORIDE 0.9% 50 ML IV PRN (04:55)
[2023-02-09 05:58] LABS: Basophils # (auto) 0.01 K/uL (0-0.2); Basophils % (auto) 0.2 %; Eosinophils # (auto) 0.12 K/uL (0-0.50); Eosinophils % (auto) 2.7 %; Hematocrit (blood only) 28.4 % (37.0-47.0); Hemoglobin 9.2 g/dl (12.0-16.0); Immature Granulocytes # (auto) 0.04 K/uL (0.01-0.20); Immature Granulocytes % (auto) 0.9 %; Lymphocytes % (auto) 13.4 %; Mean Corpuscular Hemoglobin 30.3 pg (25.0-34.0); Mean Corpuscular Hgb Conc 32.4 g/dL (32.0-36.0); Mean Corpuscular Volume 93.4 fL (80.0-100.0); Mean Platelet Volume 12.8 fL (9.4-12.4); Monocytes # (auto) 0.14 K/uL (0.11-0.59); Monocytes % (auto) 3.1 %; Neutrophils # (auto) 3.58 K/uL (1.40-6.50); Neutrophils % (auto) 79.7 %; Platelet Count 89 K/uL (130-400); RDW Coefficient of Variation 16.1 % (11.5-14.5); RDW Standard Deviation 55.8 fL (36.4-46.3); Red Blood Count 3.04 M/uL (4.20-5.40); White Blood Count 4.49 K/ul (4.8-10.8)
[2023-02-09 06:09] LABS: Albumin Level 2.9 gm/dl (3.4-5.0); BUN Creatinine Ratio 15.4 (10-20); Bilirubin Direct 0.3 mg/dl (0-0.2); Bilirubin,Total 0.9 mg/dl (0.2-1.0); Calcium 8.8 mg/dl (8.6-10.3); Creatinine Clr Calc Pharmacy 117.7 ml/min; Est GFR (African American) 133.7 ml/min; Est GFR (Non-African American) 115.4 ml/min; Phosphorus 2.1 mg/dl (2.5-4.9); Potassium 3.1 mmol/L (3.5-5.1); Total Protein 5.5 gm/dl (6.0-8.3)
[2023-02-09] MEDS ORDERED: POTASSIUM CHLORIDE 20 MEQ/15 ML UDC PO STA ×2 (06:23→15:41)
[2023-02-09] MEDS ORDERED: POTASSIUM PHOS 3 MMOL/1 ML INFUSION IV STA (06:23)
[2023-02-09 06:38] LABS: Partial Thromboplastin Ratio 1.6
[2023-02-09 06:40] LABS: Partial Thromboplastin Time 45.3 Seconds (21.0-31.0)
[2023-02-09] MEDS ORDERED: POTASSIUM PHOSPHATE 30 MMOL in SODIUM CHLORIDE 0.9% 500 ML IV ONE (06:45)
[2023-02-09] MEDS: FAMOTIDINE 20 MG in SYRINGE 3 ML IV SCH ×2 (07:15→19:44)
--- NOTE | 2023-02-09 07:23 | Critical Care Progress Note ---
Date of Service February 09, 2023 Assessment & Plan (1) Thrombocytopenia: (2) Hypercoagulable state: (3) Acute hypoxemic respiratory failure: (4) Respiratory failure: (5) Aspiration pneumonia: (6) Supratherapeutic INR: (7) Pulmonary embolism: (8) Myotonic muscular dystrophy: (9) Anxiety: (10) Chronic back pain: Plan Reason Critically Ill: 47-year-old female presents to the ICU for acute hypoxic respiratory failure following an aspiration event after the patient had ingested marijuana edibles, now requiring mechanical ventilation. Neuro - -- Acute metabolic encephalopathy - History of marijuana edible use, reported as possible recent overdose - D/W denies recent depressive episodes, no verbalized intent to harm -- Anxiety/depression/Borderline personality disorder continue home medications once patient is extubated and taking p.o. - Additional Hx from , prior mental health hospitalizations which were voluntary in nature. -He does not believe there was ever overdose however he did report if there was it was secondary with melatonin --Small fiber neuropathy --Myotonic muscular dystrophy -Follows with Nat --Chronic coccygeal pain - reports patient treats by consumption of THC tar which she bakes into cookies and consumed multiple cookies -Dosing strategy unclear Sedationpropofol Cardiac - Hisory PFO -Echocardiogram with bubble study: Reported as limited bubble study, no evidence of right to left shunting History of orthostatic hypotension -Midodrine not listed as active per outpatient medication reconciliation Respiratory - -- Acute hypoxic respiratory failure sec to multilobar pneumonia with Aspiration -Status post bronchoscopy 02/08/2023 -- History pulmonary embolism: Stable -Factor V Leiden mutation & chronic immobility secondary to myotonic muscular dystrophy -CTA does not demonstrate PE - anticoagulation with heparin - reports chronic systemic anticoagulation -No clear indication as to why subtherapeutic (non-compliance?) GI - Dysphagia - reports prior attempts at feeding tube placement, this was discontinued -Would consider reevaluation as patient had recurrent aspiration events since last attempted PEG placement, possible GI consult Thursday Transaminitis Trending down -Unclear etiology, this appears to be occasionally recurrent Follow hepatitis panel - Worthy -Urinalysis unremarkable, test negative ENDO - Continue with ICU hypoglycemia protocol HEME - Subtherapeutic anticoagulation -Continue heparin infusion until evaluation by GI/surgery for possible PEG tube Chronic thrombocytopenia: stable ID - Febrile illness Staphylococcal growth in blood culture 1 of 2 bottles --> likely contaminant -Repeat blood cultures 02/08/2023 have been negative Presumptive aspiration pneumonia -S/p bronchoscopy 02/08/2023 -Rocephin changed to Zosyn --Prophylaxis VTE: Heparin drip GI: Pepcid Lines: Peripheral Diet: Resume tube feeds Plan: In/out: -173, +4.6 L since coming to the hospital ABG 7.41/40/66 on PEEP of 8, 50% Chest x-ray from today shows worsening infiltrate compared to before. Given the +4.6 L since coming to the hospital, I am going to give the patient Lasix 40 mg Repeat BMP in the afternoon if the creatinine is still good then we will give another 20 of Lasix in the evening. Keep the patient RASS -1, go down on propofol as much as possible Potassium, phosphorus as well as magnesium being replaced Resume tube feeds at the lower rate Mother was at bedside was updated regarding patient's condition I have personally spent 42 minutes of critical care time in the direct management of this patient. This is a life/limb threatening event. This includes time spent evaluating patient, direct bedside care, chart review, placing orders, interpretation of diagnostic studies, discussion with consultants, patient, and family members, as well as other required patient management activi ties. This time is exclusive of all separately billable procedures, and teaching time and separate from and in addition to any other critical care service time. Admission and Anticipated Discharge Date Admission Date: February 06, 2023 Subjective Patient seen and examined at bedside. She was on 35 propofol RASS -1 She was breathing with the vent Map was 74 Still spiking fever around 38 Tube feeds are on hold Review of Systems Review of Systems: All systems reviewed & are unremarkable except as noted in Subjective Physical Exam Physical Exam: Constitutional: No acute distress HEENT: PERRLA Respiratory system: Decreased air entry bilaterally, no wheeze, no rhonchi, positive crackles bilaterally CVS: S1-S2 positive, no murmurs or gallops Abdomen: Soft, nontender, nondistended, positive bowel sounds x4 Extremities: +2 pulses bilaterally radialis/ dorsalis pedis, no cyanosis, no edema Neuro: RASS -2, breathing with vent Psych: Unable to assess G/U: Positive Worthy Skin: no rashes, warm and dry Lymphatic: no cervical or axillary lymphadenopathy Results & Data Results & Data Vital Signs (Past 12 Hours) Vital Signs Temp Pulse Resp BP Pulse Ox O2 Del Method FiO2 02/09/23 05:00 38.1 C H 107 H 19 92 02/09/23 04:30 132/70 02/09/23 04:30 38.2 C H 118 H 19 92 02/09/23 04:00 38.2 C H 112 H 18 92 02/09/23 04:00 114/72 02/09/23 03:30 38.2 C H 112 H 20 91 02/09/23 03:30 102/66 02/09/23 03:00 38.2 C H 106 H 19 92 02/09/23 03:00 124/66 02/09/23 02:30 38.2 C H 106 H 17 92 02/09/23 02:30 107/65 02/09/23 02:00 38.1 C H 100 H 18 92 02/09/23 02:00 104/64 02/09/23 01:30 128/70 02/09/23 01:30 38.1 C H 105 H 22 87 L 02/09/23 01:01 38.1 C H 102 H 23 89 L 02/09/23 01:01 113/70 02/09/23 01:00 38.1 C H 101 H 22 88 L 02/09/23 04:00 50 02/09/23 04:29 111 H 23 91 50 02/08/23 23:40 93 H 19 91 50 02/08/23 19:50 82 19 95 40 02/09/23 00:00 98 H 02/09/23 00:00 38.3 C H 96 H 19 91 02/09/23 00:00 118/68 02/08/23 23:30 38.3 C H 96 H 18 90 02/08/23 23:30 125/66 02/08/23 23:00 38.3 C H 89 21 90 02/08/23 23:00 107/77 02/08/23 22:30 38.4 C H 64 18 95 02/08/23 22:30 100/57 L 02/08/23 22:00 38.3 C H 81 21 94 02/08/23 22:00 107/85 02/08/23 21:30 38.4 C H 85 20 93 02/08/23 21:30 112/63 02/08/23 21:00 38.4 C H 82 20 93 02/08/23 21:00 116/75 02/08/23 20:30 38.4 C H 63 18 97 02/08/23 20:30 101/57 L 02/08/23 20:00 38.5 C H 83 21 96 02/08/23 20:00 108/67 02/08/23 19:30 101/57 L 02/08/23 19:30 38.5 C H 62 18 97 02/09/23 00:00 40 02/08/23 20:00 Mechanical Vent 40 02/08/23 20:00 40 Laboratory Results 02/09/23 05:35 02/09/23 05:35 Coding Level of Care Code 25701 CRITICAL CARE 1ST 30-74M Diagnoses Thrombocytopenia D69.6 Hypercoagulable state D68.59 Acute hypoxemic respiratory failure J96.01 Respiratory failure J96.01 Chronicity: acute Respiratory failure complication: hypoxia Aspiration pneumonia J69.0 Aspiration pneumonia type: unspecified Laterality: bilateral Lung location: unspecified part of lung Supratherapeutic INR R79.1 Pulmonary embolism I26.99 Myotonic muscular dystrophy G71.11 Anxiety F41.9 Chronic back pain M54.9; G89.29 Time Spent (min) 42 (4) Respiratory failure Chronicity: acute Respiratory failure complication: hypoxia Qualified Code(s): J96.01 - Acute respiratory failure with hypoxia (5) Aspiration pneumonia Aspiration pneumonia type: unspecified Laterality: bilateral Lung location: unspecified part of lung Qualified Code(s): J69.0 - Pneumonitis due to inhalation of food and vomit
[2023-02-09] MEDS ORDERED: FUROSEMIDE 40 MG/4 ML VIAL IV ONE (08:00)
[2023-02-09] MEDS: POTASSIUM CHLORIDE / WTR 10 MEQ/100 ML PLCT IV SCH ×2 (08:15→09:04)
[2023-02-09] MEDS: MAGNESIUM SULFATE / D5W 1 GM/100 ML BAG IV SCH ×2 (08:15→10:15)
[2023-02-09 08:33] LABS: Marijuana Quant, GCMS Urine >5000 ng/mL (<5)
--- NOTE | 2023-02-09 08:33 | XRay Report ---
XR chest 1V portable HISTORY: 47 years-old Female Resp failure acute respiratory failure COMPARISON: Chest radiograph 02/08/2023 TECHNIQUE: AP view of the chest FINDINGS: Cardiac silhouette is enlarged. Enteric tube distal tip projects over the mid to distal stomach. Endo tracheal tube overlies the midline, 2.5 cm superior to the bernadette. No pneumothorax. Hypoinflation. Pu lmonary vascular congestion with interstitial coarsening, bibasilar consolidation and small pleural e ffusions. Bones appear grossly intact. IMPRESSION: 1. Lines and tubes as above. 2. Interval development of pulmonary edema with bibasilar consolidation and small pleural effusions. 3. No pneumothorax. ACT 112: Negative or not required by law. The above report was generated using voice recognition software. It may contain grammatical, syntax o r spelling errors. Electronically signed by: Miguel Angel Miranda M.D. 02/09/2023 8:30 AM
[2023-02-09] MEDS: ACETAMINOPHEN 1,000 MG/100 ML VIAL IV PRN ×2 (11:05→20:25)
--- NOTE | 2023-02-09 15:02 | Hospitalist Progress Note ---
Date of Service February 09, 2023 Assessment & Plan (1) Respiratory failure: Plan: Per admitting service notes with addendum: Acute hypoxic respiratory failure Secondary to aspiration pneumonia Recent consumption of marijuana cookies, hx IBS/gastroparesis -- Remains intubated, sedated --02/08: Status post bronchoscopy Fiberoptic bronchoscopy was performed via endotracheal tube. Bronchioalveolar lavage of the left lower lobe was performed. Findings included: Mucopurulent secretions suctioned predominantly from the left lower lobe. Dishwater appearance. No significant hyponatremia in the airways. -- Blood cultures: Negative so far -- Ceftriaxone changed to Zosyn Continue weaning efforts --Tube feeding started --Further management of mechanical ventilator per cotton bag clipper service, appreciate recommendations 02/09 still having fever 38 repeat blood cultures pending bronch secretions culture: pending continue Zosyn IV Severe sepsis secondary to above hypercoagulable state (history PE, factor V Leiden mutation as per records) on Coumadin, INR subtherapeutic --Currently on heparin drip hx orthostatic hypotension as per records, patient not currently on prior midodrine Rx --Monitor blood pressure hx myotonic dystrophy borderline personality disorder/anxiety/mood disorder history of traumatic brain injury prediabetes, hemoglobin A1c of 5.6 2020 transaminitis, possible fatty liver disease with note of hepatic change in outpatient CT abdomen pelvis October 2022 chronic thrombocytopenia DVT prophylaxis. Heparin drip GI prophylaxis. Famotidine Full code Disposition Pending Lives at home with her Admission and Anticipated Discharge Date Admission Date: February 06, 2023 Subjective ff up for aspiration pneumonia, etc Seen on mechanical ventilator, sedated Not in distress, no signs of pain Still febrile Review of Systems Review of Systems: all noted and negative except for above Physical Exam Physical Exam: General- sedated, intubated, not in distress Eyes- anicteric Neck- no JVD Lungs- clear breath sounds bilaterally, no rhonchi anteriorly Heart- normal rate, regular rhythm; no murmurs Abdomen- normal bowel sounds, nondistended, soft, nontender Extremities- no pretibial edema, no calf tenderness Neuro-sedated Skin- warm & dry Results & Data Results & Data Vital Signs (Past 12 Hours) Vital Signs Temp Pulse Resp BP Pulse Ox O2 Del Method FiO2 02/09/23 14:00 37.9 C H 68 18 98/56 L 95 Mechanical Vent 40 02/09/23 13:00 38.0 C H 82 21 100/61 94 Mechanical Vent 40 02/09/23 12:50 38.0 C H 83 18 97/63 L 94 Mechanical Vent 40 02/09/23 12:01 38.2 C H 79 18 90/59 L 95 Mechanical Vent 40 02/09/23 11:00 38.6 C H 80 18 100/55 L 93 Mechanical Vent 40 02/09/23 12:00 40 02/09/23 10:39 84 20 94 40 02/09/23 10:34 40 02/09/23 07:00 Mechanical Vent 50 02/09/23 10:00 38.5 C H 86 18 99/64 L 93 Mechanical Vent 40 02/09/23 09:00 38.5 C H 90 18 104/57 L 92 Mechanical Vent 40 02/09/23 08:00 38.7 C H 102 H 15 101/65 95 Mechanical Vent 40 02/09/23 08:00 104 H 02/09/23 07:00 38.3 C H 86 16 110/80 95 Mechanical Vent 50 02/09/23 07:24 99 H 24 92 50 02/09/23 07:00 50 02/09/23 05:00 38.1 C H 107 H 19 92 02/09/23 04:30 132/70 02/09/23 04:30 38.2 C H 118 H 19 92 02/09/23 04:00 38.2 C H 112 H 18 92 02/09/23 04:00 114/72 02/09/23 03:30 38.2 C H 112 H 20 91 02/09/23 03:30 102/66 02/09/23 03:00 38.2 C H 106 H 19 92 02/09/23 03:00 124/66 02/09/23 04:00 50 02/09/23 04:29 111 H 23 91 50 all noted and reviewed including below (1) Respiratory failure Chronicity: acute Respiratory failure complication: hypoxia Qualified Code(s): J96.01 - Acute respiratory failure with hypoxia
[2023-02-09 15:38] LABS: Calcium 7.8 mg/dl (8.6-10.3); Magnesium 2.6 mg/dl (1.7-2.4); Potassium 3.3 mmol/L (3.5-5.1)
[2023-02-09 15:44] LABS: BUN Creatinine Ratio 9.8 (10-20); Creatinine Clr Calc Pharmacy 100.3 ml/min; Est GFR (African American) 126.9 ml/min; Est GFR (Non-African American) 109.5 ml/min
[2023-02-09 15:48] LABS: Phosphorus 3.2 mg/dl (2.5-4.9)
[2023-02-09] MEDS: PEPTAMEN INTENSE VHP 1.0 CAL 1,000 ML BAG OG SCH (16:01)
[2023-02-09] MEDS: TUBE FEEDING WATER FLUSH OG SCH ×3 (16:02→23:53)
[2023-02-10] MEDS ORDERED: FUROSEMIDE INJ 20 MG/2 ML VIAL IV ONE ×3 (00:07→21:00)
[2023-02-10] MEDS: TUBE FEEDING WATER FLUSH OG SCH ×5 (04:03→19:55)
[2023-02-10] MEDS: propofoL 1,000 MG/100 ML VIAL IV SCH ×4 (04:03→21:28)
[2023-02-10] MEDS: PROPOFOL BOLUS FROM BAG IV PRN ×2 (04:04→22:46)
[2023-02-10 04:51] LABS: iSTAT Allen Test Pass; iSTAT Art Bld Gas pCO2 Correct 41 mmHg (35-46); iSTAT Art Bld Gas pH Corrected 7.396 (7.35-7.45); iSTAT Arterial Blood Gas HCO3 25 meg/L (19-24); iSTAT Arterial Blood Gas pCO2 39 mmHg (35-46); iSTAT Arterial Blood Gas pH 7.41 (7.35-7.45); iSTAT Arterial Blood Gas pO2 52 mmHg (80-95); iSTAT Arterial Blood Gas pO2 C 56; iSTAT Carbon Dioxide 26 mmol/L (24-31); iSTAT FiO2 40 %; iSTAT Hematocrit 39 % (37-47); iSTAT Hemoglobin 13.3 g/dl (12.0-16.0); iSTAT Potassium 3.5 mmol/L (3.3-5.0); iSTAT Site R Radial; iSTAT Sodium 143 mmol/L (135-144)
[2023-02-10 05:19] LABS: Basophils # (auto) 0.01 K/uL (0-0.2); Basophils % (auto) 0.2 %; Eosinophils # (auto) 0.18 K/uL (0-0.50); Eosinophils % (auto) 3.6 %; Hematocrit (blood only) 30.6 % (37.0-47.0); Immature Granulocytes # (auto) 0.03 K/uL (0.01-0.20); Immature Granulocytes % (auto) 0.6 %; Lymphocytes # (auto) 0.67 K/uL (1.2-3.4); Lymphocytes % (auto) 13.4 %; Mean Corpuscular Hemoglobin 29.8 pg (25.0-34.0); Mean Corpuscular Hgb Conc 32.7 g/dL (32.0-36.0); Mean Corpuscular Volume 91.1 fL (80.0-100.0); Mean Platelet Volume 12.1 fL (9.4-12.4); Monocytes # (auto) 0.22 K/uL (0.11-0.59); Monocytes % (auto) 4.4 %; Neutrophils % (auto) 77.8 %; Platelet Count 109 K/uL (130-400); RDW Coefficient of Variation 16.4 % (11.5-14.5); RDW Standard Deviation 54.7 fL (36.4-46.3); Red Blood Count 3.36 M/uL (4.20-5.40); White Blood Count 5.01 K/ul (4.8-10.8)
[2023-02-10 05:30] LABS: BUN Creatinine Ratio 14.5 (10-20); Calcium 8.5 mg/dl (8.6-10.3); Creatinine Clr Calc Pharmacy 98.7 ml/min; Est GFR (African American) 126.2 ml/min; Est GFR (Non-African American) 108.9 ml/min; Magnesium 2.5 mg/dl (1.7-2.4); Phosphorus 2.3 mg/dl (2.5-4.9); Potassium 3.7 mmol/L (3.5-5.1)
[2023-02-10 05:43] LABS: Partial Thromboplastin Ratio 1.3; Partial Thromboplastin Time 36.5 Seconds (21.0-31.0)
[2023-02-10] MEDS ORDERED: POTASSIUM PHOS 3 MMOL/1 ML INFUSION IV STA (06:30)
[2023-02-10] MEDS ORDERED: POTASSIUM PHOSPHATE 15 MMOL in SODIUM CHLORIDE 0.9% 250 ML IV ONE (06:45)
--- NOTE | 2023-02-10 07:21 | Critical Care Progress Note ---
Date of Service February 10, 2023 Assessment & Plan (1) Thrombocytopenia: (2) Hypercoagulable state: (3) Acute hypoxemic respiratory failure: (4) Respiratory failure: (5) Aspiration pneumonia: (6) Supratherapeutic INR: (7) Pulmonary embolism: (8) Myotonic muscular dystrophy: (9) Anxiety: (10) Chronic back pain: Plan Reason Critically Ill: 47-year-old female presents to the ICU for acute hypoxic respiratory failure following an aspiration event after the patient had ingested marijuana edibles, now requiring mechanical ventilation. Neuro - -- Acute metabolic encephalopathy - History of marijuana edible use, reported as possible recent overdose - D/W denies recent depressive episodes, no verbalized intent to harm -- Anxiety/depression/Borderline personality disorder continue home medications once patient is extubated and taking p.o. - Additional Hx from , prior mental health hospitalizations which were voluntary in nature. -He does not believe there was ever overdose however he did report if there was it was secondary with melatonin --Small fiber neuropathy/Myotonic muscular dystrophy -Follows with [place] --Chronic coccygeal pain - reports patient treats by consumption of THC tar which she bakes into cookies and consumed multiple cookies -Dosing strategy unclear Sedationpropofol Cardiac - Hisory PFO -Echocardiogram with bubble study: Reported as limited bubble study, no evidence of right to left shunting History of orthostatic hypotension -Midodrine not listed as active per outpatient medication reconciliation Respiratory - -- Acute hypoxic respiratory failure sec to multilobar pneumonia with Aspiration -Status post bronchoscopy 02/08/2023 -- History pulmonary embolism: Stable -Factor V Leiden mutation & chronic immobility secondary to myotonic muscular dystrophy -CTA does not demonstrate PE - anticoagulation with heparin - reports chronic systemic anticoagulation -No clear indication as to why subtherapeutic (non-compliance?) GI - Dysphagia - reports prior attempts at feeding tube placement, this was discontinued -Would consider reevaluation as patient had recurrent aspiration events since last attempted PEG placement, possible GI consult Thursday Transaminitis Trending down -Unclear etiology, this appears to be occasionally recurrent Follow hepatitis panel Gastroparesis Takes metoclopramide at home Will give IV metoclopramide while in the hospital - Worthy -Urinalysis unremarkable, test negative ENDO - Continue with ICU hypoglycemia protocol HEME - Subtherapeutic anticoagulation -Continue heparin infusion until evaluation by GI/surgery for possible PEG tube Chronic thrombocytopenia: stable ID - Febrile illness Staphylococcal growth in blood culture 1 of 2 bottles --> likely contaminant -Repeat blood cultures 02/08/2023 have been negative to date Presumptive aspiration pneumonia -S/p bronchoscopy 02/08/2023 -Rocephin changed to Zosyn --Prophylaxis VTE: Heparin drip GI: Pepcid Lines: Peripheral Diet: Resume tube feeds Plan: In/out: -1.5 L, urine output 3901, +3 L since coming to the hospital ABG 7.41/39/52 on PEEP of 6, 40% Chest x-ray from today shows improvement in the left side pleural effusion as well as alveolar opacities Right side alveolar opacities have improved, small pleural effusion still persists Another 40 mg of Lasix given today Stop the propofol, I put the patient on pressure support. I am going to make the patient exercise her lungs today. If she gets into any distress then we will resume the propofol at a lower rate. Phosphorus being replaced I have personally spent 40 minutes of critical care time in the direct management of this patient. This is a life/limb threatening event. This includes time spent evaluating patient, direct bedside care, chart review, placing orders, interpretation of diagnostic studies, discussion with consultants, patient, and family members, as well as other required patient management activities. This time is exclusive of all separately billable procedures, and teaching time and separate from and in addition to any other critical care service time. Admission and Anticipated Discharge Date Admission Date: February 06, 2023 Subjective Patient seen and examined at bedside. No acute distress, no adverse events overnight. Patient was saturating 94% on PEEP of 8, 50% FiO2 She was on 25 propofol She was still not waking up. I turned off the propofol and at the end of the examination she did start to wake up She is breathing over the vent Still spiking fever around 38 degrees She had emesis again early in the morning. Review of Systems Review of Systems: All systems reviewed & are unremarkable except as noted in Subjective Physical Exam Physical Exam: Constitutional: No acute distress HEENT: PERRLA Respiratory system: Decreased air entry bilaterally, no wheeze, no rhonchi, positive crackles bilaterally CVS: S1-S2 positive, no murmurs or gallops Abdomen: Soft, nontender, nondistended, positive bowel sounds x4 Extremities: +2 pulses bilaterally radialis/ dorsalis pedis, no cyanosis, no edema Neuro: RASS -2, breathing with the vent with occasional coughing Psych: Unable to assess G/U: Positive Worthy Skin: no rashes, warm and dry Lymphatic: no cervical or axillary lymphadenopathy Results & Data Results & Data Vital Signs (Past 12 Hours) Vital Signs Temp Pulse Resp BP Pulse Ox FiO2 02/10/23 07:00 38.3 C H 99 H 25 H 95 02/10/23 07:00 114/63 02/10/23 06:00 38.3 C H 92 H 19 96 02/10/23 06:00 98/65 L 02/10/23 05:00 38.3 C H 83 18 98 02/10/23 05:00 96/59 L 02/10/23 00:00 59 L 02/10/23 03:40 68 18 93 40 02/10/23 04:00 38.3 C H 103 H 19 92 02/10/23 04:00 109/73 02/10/23 03:00 38.2 C H 101 H 26 H 91 02/10/23 03:00 109/67 02/10/23 02:00 38.2 C H 96 H 23 89 L 02/10/23 02:00 116/67 02/10/23 01:00 38.1 C H 77 18 92 02/10/23 01:00 106/61 02/10/23 00:00 38.1 C H 78 19 92 02/10/23 00:00 108/64 02/10/23 04:00 40 02/10/23 00:11 62 18 93 40 02/09/23 23:00 37.9 C H 64 18 94 02/09/23 23:00 100/58 L 02/09/23 22:00 38.0 C H 63 18 94 02/09/23 22:00 95/59 L 02/09/23 21:00 38.3 C H 63 18 93 02/09/23 21:00 97/54 L 02/10/23 00:00 40 02/09/23 19:55 63 18 93 40 02/09/23 20:00 38.3 C H 62 18 93 02/09/23 20:00 96/61 L 02/09/23 20:00 40 Laboratory Results 02/10/23 04:49 02/10/23 04:49 Coding Level of Care Code 47940 CRITICAL CARE 1ST 30-74M Diagnoses Thrombocytopenia D69.6 Hypercoagulable state D68.59 Acute hypoxemic respiratory failure J96.01 Respiratory failure J96.01 Chronicity: acute Respiratory failure complication: hypoxia Aspiration pneumonia J69.0 Aspiration pneumonia type: unspecified Laterality: bilateral Lung location: unspecified part of lung Supratherapeutic INR R79.1 Pulmonary embolism I26.99 Myotonic muscular dystrophy G71.11 Anxiety F41.9 Chronic back pain M54.9; G89.29 Time Spent (min) 40 (4) Respiratory failure Chronicity: acute Respiratory failure complication: hypoxia Qualified Code(s): J96.01 - Acute respiratory failure with hypoxia (5) Aspiration pneumonia Aspiration pneumonia type: unspecified Laterality: bilateral Lung location: unspecified part of lung Qualified Code(s): J69.0 - Pneumonitis due to inhalation of food and vomit
[2023-02-10] MEDS ORDERED: FUROSEMIDE 40 MG/4 ML VIAL IV ONE (07:44)
--- NOTE | 2023-02-10 07:47 | XRay Report ---
XR chest 1V portable HISTORY: 47 years-old Female Resp failure acute respiratory failure COMPARISON: 02/09/2023 TECHNIQUE: AP view of the chest FINDINGS: Endotracheal tube overlies the midline approximately 3 cm superior to the bernadette. Enteric tube course s into the stomach with distal tip outside the [id number]. Cholecystectomy. No pneumothorax. Cardi ac silhouette is enlarged. Pulmonary vascular congestion with interstitial coarsening, bibasilar cons olidation and small pleural effusions again noted which appear similar to prior. Bones appear grossly intact. IMPRESSION: 1. Lines and tubes as above. 2. No pneumothorax. 3. Cardiomegaly with pulmonary edema, small pleural effusions and bibasilar consolidation again noted . ACT 112: Negative or not required by law. The above report was generated using voice recognition software. It may contain grammatical, syntax o r spelling errors. Electronically signed by: Miguel Angel Miranda M.D. 02/10/2023 7:46 AM
[2023-02-10] MEDS: FAMOTIDINE 20 MG in SYRINGE 3 ML IV SCH ×2 (08:35→19:56)
[2023-02-10] MEDS: PIPERACILLIN/TAZOBACTAM 4.5 GM in DEXTROSE 5% 100 ML IV SCH ×2 (08:35→16:18)
[2023-02-10 09:11] LABS: Influenza A virus by PCR Negative (Negative); Influenza B virus by PCR Negative (Negative)
[2023-02-10] MEDS: METOCLOPRAMIDE HCL INJ 5 MG/ML 2 ML VIAL IV SCH (09:48)
[2023-02-10 10:47] LABS: HBSAG NON-REACTIVE (NON-REACTIVE); Hepatitis A Antibody IgM NON-REACTIVE (NON-REACTIVE); Hepatitis B Core Antibody IgM NON-REACTIVE (NON-REACTIVE)
[2023-02-10 13:02] LABS: Partial Thromboplastin Time 28.1 Seconds (21.0-31.0)
[2023-02-10] MEDS ORDERED: HEPARIN SOD (PORCINE) 1000 UNIT/ML IV ONE (13:30)
--- NOTE | 2023-02-10 15:32 | Hospitalist Progress Note ---
Date of Service February 10, 2023 Assessment & Plan (1) Respiratory failure: Plan: Per admitting service notes with addendum: Acute hypoxic respiratory failure Secondary to aspiration pneumonia Recent consumption of marijuana cookies, hx IBS/gastroparesis -- Remains intubated, sedated --02/08: Status post bronchoscopy Fiberoptic bronchoscopy was performed via endotracheal tube. Bronchioalveolar lavage of the left lower lobe was performed. Findings included: Mucopurulent secretions suctioned predominantly from the left lower lobe. [place] appearance. No significant hyponatremia in the airways. -- Blood cultures: Negative Sputum culture: Angelita albicans Bronchial lavage left lower lobe cultures: Angelita albicans --Weaning trial in progress, doing well so far Still having fever 38.0 --Continue Zosyn IV May need coverage for fungal pneumonia? -- Hopefully for extubation tomorrow Continue tube feeding hypercoagulable state (history PE, factor V Leiden mutation as per records) on Coumadin, INR subtherapeutic --Currently on heparin drip hx orthostatic hypotension as per records, patient not currently on prior midodrine Rx --Monitor blood pressure hx myotonic dystrophy borderline personality disorder/anxiety/mood disorder history of traumatic brain injury prediabetes, hemoglobin A1c of 5.6 2020 transaminitis, possible fatty liver disease with note of hepatic change in outpatient CT abdomen pelvis October 2022 chronic thrombocytopenia DVT prophylaxis. Heparin drip GI prophylaxis. Famotidine Full code Disposition Pending Lives at home with her Admission and Anticipated Discharge Date Admission Date: February 06, 2023 Subjective Follow-up for acute hypoxic respiratory failure, aspiration pneumonia, etc. Seen at the bedside, sedated, on mechanical ventilator No signs of distress, pain Discussed with RN Patient on weaning trial, doing well, so far Still having temperature of 38.0 No other acute issues Review of Systems Review of Systems: all noted and negative except for above Physical Exam Physical Exam: General- oriented x 3, not in distress, speaks in sentences with no effort or accessory muscle use Eyes- anicteric Neck- no JVD Lungs- clear breath sounds bilaterally, no rales/wheezes Heart- normal rate, regular rhythm; no murmurs Abdomen- normal bowel sounds, nondistended, soft, nontender Extremities- no pretibial edema, no calf tenderness Neuro- alert, oriented x 3; no gross focal neurologic deficits Skin- warm & dry Results & Data Results & Data Vital Signs (Past 12 Hours) Vital Signs Temp Pulse Resp BP Pulse Ox O2 Del Method FiO2 02/10/23 07:00 Mechanical Vent 50 02/10/23 13:00 38.1 C H 93 H 23 106/63 99 CPAP, Mechanical Vent 50 02/10/23 12:01 105 H 21 94 50 02/10/23 07:11 92 H 19 95 50 02/10/23 12:01 38.2 C H 104 H 16 138/83 94 CPAP, Mechanical Vent 30 02/10/23 12:00 50 02/10/23 11:00 38.1 C H 101 H 21 108/69 94 CPAP, Mechanical Vent 50 02/10/23 10:00 38.5 C H 122 H 17 128/71 92 CPAP, Mechanical Vent 50 02/10/23 09:00 38.6 C H 110 H 20 117/65 94 CPAP, Mechanical Vent 50 02/10/23 08:00 38.4 C H 107 H 21 102/74 93 CPAP, Mechanical Vent 50 02/10/23 07:00 40 02/10/23 07:00 38.3 C H 99 H 25 H 95 02/10/23 07:00 114/63 02/10/23 06:00 38.3 C H 92 H 19 96 02/10/23 06:00 98/65 L 02/10/23 05:00 38.3 C H 83 18 98 02/10/23 05:00 96/59 L 02/10/23 03:40 68 18 93 40 02/10/23 04:00 38.3 C H 103 H 19 92 02/10/23 04:00 109/73 02/10/23 04:00 40 all noted and reviewed including below (1) Respiratory failure Chronicity: acute Respiratory failure complication: hypoxia Qualified Code(s): J96.01 - Acute respiratory failure with hypoxia
[2023-02-10] MEDS: ACETAMINOPHEN 1,000 MG/100 ML VIAL IV PRN (16:18)
[2023-02-10] MEDS: fentaNYL citrate PF 100 MCG/2 ML VIAL IV PRN (19:56)
[2023-02-10 20:23] LABS: Partial Thromboplastin Ratio 1.8
[2023-02-10 20:49] LABS: Partial Thromboplastin Time 50.9 Seconds (21.0-31.0)
[2023-02-10] MEDS ORDERED: STAT IV Infusion **Titration per Protocol STA (21:25)
[2023-02-10] MEDS: HEPARIN SODIUM/DEXTROSE 25,000 UNITS/500 ML BAG IV SCH (21:28)
[2023-02-11] MEDS: TUBE FEEDING WATER FLUSH OG SCH ×6 (00:17→19:38)
[2023-02-11] MEDS: PIPERACILLIN/TAZOBACTAM 4.5 GM in DEXTROSE 5% 100 ML IV SCH ×3 (00:17→17:59)
[2023-02-11] MEDS: PROPOFOL BOLUS FROM BAG IV PRN ×4 (04:00→06:15)
[2023-02-11] MEDS: propofoL 1,000 MG/100 ML VIAL IV SCH ×3 (04:31→19:45)
[2023-02-11 05:14] LABS: iSTAT Allen Test Pass; iSTAT Art Bld Gas pCO2 Correct 37 mmHg (35-46); iSTAT Art Bld Gas pH Corrected 7.461 (7.35-7.45); iSTAT Arterial Blood Gas HCO3 26 meg/L (19-24); iSTAT Arterial Blood Gas pCO2 36 mmHg (35-46); iSTAT Arterial Blood Gas pH 7.48 (7.35-7.45); iSTAT Arterial Blood Gas pO2 65 mmHg (80-95); iSTAT Arterial Blood Gas pO2 C 70; iSTAT Carbon Dioxide 27 mmol/L (24-31); iSTAT FiO2 50 %; iSTAT Hematocrit 32 % (37-47); iSTAT Hemoglobin 10.9 g/dl (12.0-16.0); iSTAT Potassium 3.2 mmol/L (3.3-5.0); iSTAT Site R Radial; iSTAT Sodium 138 mmol/L (135-144)
[2023-02-11 06:14] LABS: Basophils # (auto) 0.02 K/uL (0-0.2); Basophils % (auto) 0.3 %; Eosinophils # (auto) 0.23 K/uL (0-0.50); Eosinophils % (auto) 3.8 %; Hemoglobin 10.8 g/dl (12.0-16.0); Immature Granulocytes # (auto) 0.06 K/uL (0.01-0.20); Lymphocytes # (auto) 1.24 K/uL (1.2-3.4); Lymphocytes % (auto) 20.6 %; Mean Corpuscular Hemoglobin 29.6 pg (25.0-34.0); Mean Corpuscular Hgb Conc 32.7 g/dL (32.0-36.0); Mean Corpuscular Volume 90.4 fL (80.0-100.0); Mean Platelet Volume 11.9 fL (9.4-12.4); Monocytes # (auto) 0.43 K/uL (0.11-0.59); Monocytes % (auto) 7.1 %; Neutrophils # (auto) 4.04 K/uL (1.40-6.50); Neutrophils % (auto) 67.2 %; Platelet Count 145 K/uL (130-400); RDW Coefficient of Variation 15.8 % (11.5-14.5); RDW Standard Deviation 52.5 fL (36.4-46.3); Red Blood Count 3.65 M/uL (4.20-5.40); White Blood Count 6.02 K/ul (4.8-10.8)
[2023-02-11 06:26] LABS: Calcium 9.3 mg/dl (8.6-10.3); Creatinine Clr Calc Pharmacy 105.9 ml/min; Est GFR (African American) 129.8 ml/min; Magnesium 2.5 mg/dl (1.7-2.4); Phosphorus 1.9 mg/dl (2.5-4.9); Potassium 3.4 mmol/L (3.5-5.1)
[2023-02-11] MEDS ORDERED: POTASSIUM PHOS 3 MMOL/1 ML INFUSION IV STA (06:39)
[2023-02-11 06:49] LABS: Partial Thromboplastin Ratio 1.7; Partial Thromboplastin Time 48.8 Seconds (21.0-31.0)
[2023-02-11] MEDS ORDERED: POTASSIUM PHOSPHATE 30 MMOL in SODIUM CHLORIDE 0.9% 500 ML IV ONE (07:00)
--- NOTE | 2023-02-11 07:27 | Hospitalist Progress Note ---
Date of Service February 11, 2023 Assessment & Plan (1) Respiratory failure: Plan: Per previous hospitalist's notes with addendum: Acute hypoxic respiratory failure Secondary to aspiration pneumonia Recent consumption of marijuana cookies, hx IBS/gastroparesis -- Remains intubated, sedated --02/08: Status post bronchoscopy Fiberoptic bronchoscopy was performed via endotracheal tube. Bronchioalveolar lavage of the left lower lobe was performed. Findings included: Mucopurulent secretions suctioned predominantly from the left lower lobe. [place] appearance. No significant hyponatremia in the airways. 02/11 pt extubated and required re-intubation -> plan for trach, ENT consulted Still having fever 38.4 C -- Blood cultures: 02/06/23 coag neg staph. -- Repeat blood cultx 02/08/23 - Negative so far Sputum culture: Angelita albicans Bronchial lavage left lower lobe cultures: Angelita albicans --Continue Zosyn IV May need coverage for fungal pneumonia? Management per ICU/pulmonary Continue tube feeding Hypercoagulable state (history PE, factor V Leiden mutation as per records) on Coumadin, INR subtherapeutic --Currently on heparin drip Hx orthostatic hypotension as per records, patient not currently on prior mido drine Rx --Monitor blood pressure Hx myotonic dystrophy Borderline personality disorder/anxiety/mood disorder History of traumatic brain injury Prediabetes, current hemoglobin A1c of 5.7 Transaminitis, possible fatty liver disease with note of hepatic change in outpatient CT abdomen pelvis October 2022 Chronic thrombocytopenia - cont. to monitor DVT prophylaxis. Heparin drip GI prophylaxis. Famotidine Full code Disposition: ICU Lives at home with her Admission and Anticipated Discharge Date Admission Date: February 06, 2023 Subjective Follow-up for acute hypoxic respiratory failure, aspiration pneumonia, etc. 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, plan for trach, ENT consulted Discussed with RN and ENT physician at the bedside Still febrile at 38.4 C Review of Systems Review of Systems: All systems reviewed & are unremarkable except as noted in Subjective Physical Exam Physical Exam: General - young F, intubated sedated Lungs - decreased air entry, + crackles b/l Heart- normal rate, regular rhythm; no murmurs Abdomen- normal bowel sounds, nondistended, soft, + bowel sounds Extremities- no pretibial edema Neuro- sedated, intubated Skin- warm & dry Results & Data Results & Data Vital Signs (Past 12 Hours) Vital Signs Temp Pulse Resp BP Pulse Ox O2 Del Method FiO2 02/11/23 06:00 37.9 C H 111 H 18 92 02/11/23 06:00 145/80 H 02/11/23 05:00 38.0 C H 106 H 19 93 02/11/23 05:00 122/76 02/11/23 04:00 38.0 C H 92 H 16 93 02/11/23 03:00 37.9 C H 82 19 100 02/11/23 03:00 99/76 L 02/11/23 02:00 38.1 C H 78 18 93 02/11/23 02:00 108/65 02/11/23 01:00 38.1 C H 96 H 18 95 02/11/23 01:00 107/71 02/11/23 04:00 50 02/11/23 02:03 83 19 93 50 02/11/23 00:00 38.2 C H 90 18 94 02/11/23 00:00 108/78 02/10/23 23:00 38.2 C H 89 18 95 02/10/23 23:00 106/79 02/10/23 22:00 38.1 C H 83 16 95 02/10/23 22:00 94/69 L 02/10/23 21:01 37.9 C H 92 H 21 94 02/10/23 21:01 113/80 02/10/23 21:00 37.9 C H 92 H 17 96 02/10/23 20:00 37.5 C 86 16 94 02/11/23 00:00 50 02/10/23 23:00 78 02/10/23 22:35 19 94 50 02/10/23 20:00 Mechanical Vent 40 02/10/23 20:00 50 02/10/23 19:48 76 18 97 50 Laboratory Results 02/11/23 02/11/23 02/11/23 Range/Units 05:53 05:53 05:53 WBC 6.02 (4.8-10.8) K/ul RBC 3.65 L (4.20-5.40) M/uL Hgb 10.8 L (12.0-16.0) g/dl POC Hgb (12.0-16.0) g/dl Hct 33.0 L (37.0-47.0) % POC Hct (37-47) % MCV 90.4 (80.0-100.0) fL MCH 29.6 (25.0-34.0) pg MCHC 32.7 (32.0-36.0) g/dL RDW Std Deviation 52.5 H (36.4-46.3) fL RDW Coeff of Ora 15.8 H (11.5-14.5) % Plt Count 145 (130-400) K/uL MPV 11.9 (9.4-12.4) fL Immature Gran % (Auto) 1.0 % Neut % (Auto) 67.2 % Lymph % (Auto) 20.6 % [place] % (Auto) 7.1 % Eos % (Auto) 3.8 % Baso % (Auto) 0.3 % Neut # (Auto) 4.04 (1.40-6.50) K/uL Lymph # (Auto) 1.24 (1.2-3.4) K/uL [place] # (Auto) 0.43 (0.11-0.59) K/uL Eos # (Auto) 0.23 (0-0.50) K/uL Baso # (Auto) 0.02 (0-0.2) K/uL Immature Gran # (Auto) 0.06 (0.01-0.20) K/uL APTT 48.8 H* (21.0-31.0) Seconds PTT Ratio 1.7 Sample Site POC pH (7.35-7.45) POC pCO2 (35-46) mmHg POC pO2 (80-95) mmHg POC HCO3 (19-24) lidya/L POC Total CO2 (24-31) mmol/L POC Base Excess (-9-1.8) lidya/L ABG pH (Temp Correct) (7.35-7.45) ABG pCO2 (Temp Corrct (35-46) mmHg POC ABG pO2 at Pt Temp POC ABG O2 Sat (90-95) % Maurice Test O2 Delivery Device POC O2 Rate POC FiO2 % Tidal Volume PEEP POC Sodium (135-144) mmol/L Sodium 138 (136-145) mmol/L POC Potassium (3.3-5.0) mmol/L Potassium 3.4 L (3.5-5.1) mmol/L Chloride 104 (98-107) mmol/L Carbon Dioxide 25 (21-32) mmol/L Anion Gap 9 (3-11) BUN 8 (6-23) mg/dl Creatinine 0.57 L (0.6-1.2) mg/dl Est Cr Clr Drug Dosing 105.9 ml/min Est GFR ( Amer) 129.8 ml/min Est GFR (Non-Af Amer) 112.0 ml/min BUN/Creatinine Ratio 14.0 (10-20) Glucose 109 H (70-99(Fasting)) mg/dl POC Glucose (70-99) mg/dl Calcium 9.3 (8.6-10.3) mg/dl Phosphorus 1.9 L (2.5-4.9) mg/dl Magnesium 2.5 H (1.7-2.4) mg/dl Hepatitis A IgM Ab (NON-REACTIVE) Hep Bs Antigen (NON-REACTIVE) Hep Bs Ag Confirmation Hep B Core IgM Ab (NON-REACTIVE) Hepatitis C Ab (EIA) (NON-REACTIVE) Hep C Ab Signal/Cutoff (<1.00) Influ A Molecular Assay (Negative) Influ B Molecular Assay (Negative) RSV (Molecular) (Negative) 02/11/23 02/10/23 02/10/23 Range/Units 04:49 19:43 12:11 WBC (4.8-10.8) K/ul RBC (4.20-5.40) M/uL Hgb (12.0-16.0) g/dl POC Hgb 10.9 L (12.0-16.0) g/dl Hct (37.0-47.0) % POC Hct 32 L (37-47) % MCV (80.0-100.0) fL MCH (25.0-34.0) pg MCHC (32.0-36.0) g/dL RDW Std Deviation (36.4-46.3) fL RDW Coeff of Ora (11.5-14.5) % Plt Count (130-400) K/uL MPV (9.4-12.4) fL Immature Gran % (Auto) % Neut % (Auto) % Lymph % (Auto) % [place] % (Auto) % Eos % (Auto) % Baso % (Auto) % Neut # (Auto) (1.40-6.50) K/uL Lymph # (Auto) (1.2-3.4) K/uL [place] # (Auto) (0.11-0.59) K/uL Eos # (Auto) (0-0.50) K/uL Baso # (Auto) (0-0.2) K/uL Immature Gran # (Auto) (0.01-0.20) K/uL APTT 50.9 H* 28.1 (21.0-31.0) Seconds PTT Ratio 1.8 1.0 Sample Site R Radial POC pH 7.48 H (7.35-7.45) POC pCO2 36 (35-46) mmHg POC pO2 65 L (80-95) mmHg POC HCO3 26 H (19-24) lidya/L POC Total CO2 27 (24-31) mmol/L POC Base Excess 3.0 H (-9-1.8) lidya/L ABG pH (Temp Correct) 7.461 H (7.35-7.45) ABG pCO2 (Temp Corrct 37 (35-46) mmHg POC ABG pO2 at Pt Temp 70 POC ABG O2 Sat 94.0 (90-95) % Maurice Test Pass O2 Delivery Device Ventilator POC O2 Rate 18 POC FiO2 50 % Tidal Volume 350 PEEP 8 POC Sodium 138 (135-144) mmol/L Sodium (136-145) mmol/L POC Potassium 3.2 L (3.3-5.0) mmol/L Potassium (3.5-5.1) mmol/L Chloride (98-107) mmol/L Carbon Dioxide (21-32) mmol/L Anion Gap (3-11) BUN (6-23) mg/dl Creatinine (0.6-1.2) mg/dl Est Cr Clr Drug Dosing ml/min Est GFR ( Amer) ml/min Est GFR (Non-Af Amer) ml/min BUN/Creatinine Ratio (10-20) Glucose (70-99(Fasting)) mg/dl POC Glucose (70-99) mg/dl Calcium (8.6-10.3) mg/dl Phosphorus (2.5-4.9) mg/dl Magnesium (1.7-2.4) mg/dl Hepatitis A IgM Ab (NON-REACTIVE) Hep Bs Antigen (NON-REACTIVE) Hep Bs Ag Confirmation Hep B Core IgM Ab (NON-REACTIVE) Hepatitis C Ab (EIA) (NON-REACTIVE) Hep C Ab Signal/Cutoff (<1.00) Influ A Molecular Assay (Negative) Influ B Molecular Assay (Negative) RSV (Molecular) (Negative) 02/10/23 02/10/23 02/10/23 Range/Units 11:11 08:47 08:43 WBC (4.8-10.8) K/ul RBC (4.20-5.40) M/uL Hgb (12.0-16.0) g/dl POC Hgb (12.0-16.0) g/dl Hct (37.0-47.0) % POC Hct (37-47) % MCV (80.0-100.0) fL MCH (25.0-34.0) pg MCHC (32.0-36.0) g/dL RDW Std Deviation (36.4-46.3) fL RDW Coeff of Ora (11.5-14.5) % Plt Count (130-400) K/uL MPV (9.4-12.4) fL Immature Gran % (Auto) % Neut % (Auto) % Lymph % (Auto) % [place] % (Auto) % Eos % (Auto) % Baso % (Auto) % Neut # (Auto) (1.40-6.50) K/uL Lymph # (Auto) (1.2-3.4) K/uL [place] # (Auto) (0.11-0.59) K/uL Eos # (Auto) (0-0.50) K/uL Baso # (Auto) (0-0.2) K/uL Immature Gran # (Auto) (0.01-0.20) K/uL APTT (21.0-31.0) Seconds PTT Ratio Sample Site POC pH (7.35-7.45) POC pCO2 (35-46) mmHg POC pO2 (80-95) mmHg POC HCO3 (19-24) lidya/L POC Total CO2 (24-31) mmol/L POC Base Excess (-9-1.8) lidya/L ABG pH (Temp Correct) (7.35-7.45) ABG pCO2 (Temp Corrct (35-46) mmHg POC ABG pO2 at Pt Temp POC ABG O2 Sat (90-95) % Maurice Test O2 Delivery Device POC O2 Rate POC FiO2 % Tidal Volume PEEP POC Sodium (135-144) mmol/L Sodium (136-145) mmol/L POC Potassium (3.3-5.0) mmol/L Potassium (3.5-5.1) mmol/L Chloride (98-107) mmol/L Carbon Dioxide (21-32) mmol/L Anion Gap (3-11) BUN (6-23) mg/dl Creatinine (0.6-1.2) mg/dl Est Cr Clr Drug Dosing ml/min Est GFR ( Amer) ml/min Est GFR (Non-Af Amer) ml/min BUN/Creatinine Ratio (10-20) Glucose (70-99(Fasting)) mg/dl POC Glucose 109 H (70-99) mg/dl Calcium (8.6-10.3) mg/dl Phosphorus (2.5-4.9) mg/dl Magnesium (1.7-2.4) mg/dl Hepatitis A IgM Ab (NON-REACTIVE) Hep Bs Antigen (NON-REACTIVE) Hep Bs Ag Confirmation Hep B Core IgM Ab (NON-REACTIVE) Hepatitis C Ab (EIA) (NON-REACTIVE) Hep C Ab Signal/Cutoff (<1.00) Influ A Molecular Assay Negative (Negative) Influ B Molecular Assay Negative (Negative) RSV (Molecular) Negative (Negative) 02/10/23 02/08/23 Range/Units 07:30 04:49 WBC (4.8-10.8) K/ul RBC (4.20-5.40) M/uL Hgb (12.0-16.0) g/dl POC Hgb (12.0-16.0) g/dl Hct (37.0-47.0) % POC Hct (37-47) % MCV (80.0-100.0) fL MCH (25.0-34.0) pg MCHC (32.0-36.0) g/dL RDW Std Deviation (36.4-46.3) fL RDW Coeff of Ora (11.5-14.5) % Plt Count (130-400) K/uL MPV (9.4-12.4) fL Immature Gran % (Auto) % Neut % (Auto) % Lymph % (Auto) % [place] % (Auto) % Eos % (Auto) % Baso % (Auto) % Neut # (Auto) (1.40-6.50) K/uL Lymph # (Auto) (1.2-3.4) K/uL [place] # (Auto) (0.11-0.59) K/uL Eos # (Auto) (0-0.50) K/uL Baso # (Auto) (0-0.2) K/uL Immature Gran # (Auto) (0.01-0.20) K/uL APTT (21.0-31.0) Seconds PTT Ratio Sample Site POC pH (7.35-7.45) POC pCO2 (35-46) mmHg POC pO2 (80-95) mmHg POC HCO3 (19-24) lidya/L POC Total CO2 (24-31) mmol/L POC Base Excess (-9-1.8) lidya/L ABG pH (Temp Correct) (7.35-7.45) ABG pCO2 (Temp Corrct (35-46) mmHg POC ABG pO2 at Pt Temp POC ABG O2 Sat (90-95) % Maurice Test O2 Delivery Device POC O2 Rate POC FiO2 % Tidal Volume PEEP POC Sodium (135-144) mmol/L Sodium (136-145) mmol/L POC Potassium (3.3-5.0) mmol/L Potassium (3.5-5.1) mmol/L Chloride (98-107) mmol/L Carbon Dioxide (21-32) mmol/L Anion Gap (3-11) BUN (6-23) mg/dl Creatinine (0.6-1.2) mg/dl Est Cr Clr Drug Dosing ml/min Est GFR ( Amer) ml/min Est GFR (Non-Af Amer) ml/min BUN/Creatinine Ratio (10-20) Glucose (70-99(Fasting)) mg/dl POC Glucose 92 (70-99) mg/dl Calcium (8.6-10.3) mg/dl Phosphorus (2.5-4.9) mg/dl Magnesium (1.7-2.4) mg/dl Hepatitis A IgM Ab NON-REACTIVE (NON-REACTIVE) Hep Bs Antigen NON-REACTIVE (NON-REACTIVE) Hep Bs Ag Confirmation TNP Hep B Core IgM Ab NON-REACTIVE (NON-REACTIVE) Hepatitis C Ab (EIA) NON-REACTIVE (NON-REACTIVE) Hep C Ab Signal/Cutoff 0.04 (<1.00) Influ A Molecular Assay (Negative) Influ B Molecular Assay (Negative) RSV (Molecular) (Negative) Medications Administered Current Inpatient Medications Fentanyl Citrate (Fentanyl Citrate Pf 100 Mcg/2 Ml Vial) 50 mcg IV Q4H PRN PRN Reason: Pain or Agitation Stop: 02/22/23 00:02 Last Admin: 02/10/23 19:56 Dose: 50 mcg Promethazine HCl 12.5 mg/ (Sodium Chloride) 50.5 mls @ 202 mls/hr IV Q6H PRN PRN Reason: Nausea And Vomiting Stop: 03/08/23 20:35 Last Infusion: 02/09/23 05:10 Dose: Infused Heparin Sodium/Dextrose (Heparin Sodium/Dextrose) 25,000 units in 500 mls @ 23 mls/hr IV .[id number] [facility]; Protocol Stop: 03/08/23 22:29 Last Titration: 02/11/23 06:51 Dose: 1,150 units/hr, 23 mls/hr Famotidine 20 mg/ Syringe 5 mls @ 2.5 mls/min IV Q12 JESSY Stop: 03/08/23 22:24 Last Admin: 02/10/23 19:56 Dose: 2.5 mls/min Piperacillin Sod/Tazobactam (Sod 4.5 gm/ Dextrose) 120 mls @ 30 mls/hr IV Q8H [facility]; Protocol Stop: 02/15/23 15:59 Last Infusion: 02/11/23 04:17 Dose: Infused Acetaminophen (Ofirmev) 1,000 mg in 100 mls @ 400 mls/hr IV Q8H PRN PRN Reason: Fever Stop: 02/13/23 09:53 Last Infusion: 02/10/23 16:40 Dose: Infused Propofol (Diprivan) 1,000 mg in 100 mls @ 12.762 mls/hr IV .[id number] JESSY; Protocol Stop: 02/13/23 21:29 Last Titration: 02/11/23 06:52 Dose: 30 mcg/kg/min, 12.8 mls/hr Potassium Phosphate 30 mmol/ (Sodium Chloride) 510 mls @ 88 mls/hr IV TODAY@0700 ONE Stop: 02/11/23 12:47 Metoclopramide HCl (Metoclopramide Hcl Inj 5 Mg/Ml 2 Ml Vial) 5 mg IV DAILY [facility] Stop: 03/12/23 08:59 Last Admin: 02/10/23 09:48 Dose: 5 mg Nutritional Formula (Peptamen Intense Vhp 1.0 Pedro Luis 1,000 Ml Bag) 1,000 ml OG .See Protocol JESSY; Protocol Stop: 03/10/23 10:59 Last Admin: 02/09/23 16:01 Dose: 1,000 ml Propofol (Propofol Bolus From Bag) 20 mg IV Q5M PRN PRN Reason: Sedation Stop: 02/13/23 21:24 Last Admin: 02/11/23 06:15 Dose: 20 mg Sterile Water (Tube Feeding Water Flush) 30 ml OG Q4H [facility] Stop: 03/11/23 15:44 Last Admin: 02/11/23 05:30 Dose: Not Given (1) Respiratory failure Chronicity: acute Respiratory failure complication: hypoxia Qualified Code(s): J96.01 - Acute respiratory failure with hypoxia
--- NOTE | 2023-02-11 07:55 | XRay Report ---
SINGLE VIEW CHEST CLINICAL HISTORY: Respiratory failure. FINDINGS: An AP, portable, upright chest radiograph is compared to study dated 02/10/2023 and correlate d with chest CT dated 02/07/2023 . An endotracheal tube and an enteric tube are unchanged in position. The cardiomediastinal silhouette is unremarkable. Multifocal airspace consolidation is again seen thr oughout both lungs. Small pleural effusions are suspected. No pneumothorax is seen. The bony thorax i s grossly intact. Cholecystectomy clips are noted in the right upper quadrant. IMPRESSION: 1. Stable lines and tubes. 2. Multifocal airspace consolidation is similar to yesterday. 3. Suspect small pleural effusions. ACT 112: Negative or not required by law. Electronically signed by: Alex Venegas M.D. 02/11/2023 7:53 AM
[2023-02-11] MEDS: METOCLOPRAMIDE HCL INJ 5 MG/ML 2 ML VIAL IV SCH (08:23)
[2023-02-11] MEDS: FAMOTIDINE 20 MG in SYRINGE 3 ML IV SCH ×2 (08:23→19:45)
--- NOTE | 2023-02-11 09:21 | Critical Care Progress Note ---
Date of Service February 11, 2023 Assessment & Plan (1) Thrombocytopenia: (2) Hypercoagulable state: (3) Acute hypoxemic respiratory failure: (4) Respiratory failure: (5) Aspiration pneumonia: (6) Supratherapeutic INR: (7) Pulmonary embolism: (8) Myotonic muscular dystrophy: (9) Anxiety: (10) Chronic back pain: Plan Reason Critically Ill: 47-year-old female presents to the ICU for acute hypoxic respiratory failure following an aspiration event after the patient had ingested marijuana edibles, now requiring mechanical ventilation. Neuro - -- Acute metabolic encephalopathy - History of marijuana edible use, reported as possible recent overdose - D/W denies recent depressive episodes, no verbalized intent to harm -- Anxiety/depression/Borderline personality disorder continue home medications once patient is extubated and taking p.o. - Additional Hx from , prior mental health hospitalizations which were voluntary in nature. -He does not believe there was ever overdose however he did report if there was it was secondary with melatonin --Small fiber neuropathy/Myotonic muscular dystrophy -Follows with Nat --Chronic coccygeal pain - reports patient treats by consumption of THC tar which she bakes into cookies and consumed multiple cookies -Dosing strategy unclear Sedationpropofol Cardiac - Hisory PFO -Echocardiogram with bubble study: Reported as limited bubble study, no evidence of right to left shunting History of orthostatic hypotension -Midodrine not listed as active per outpatient medication reconciliation Respiratory - -- Acute hypoxic respiratory failure sec to multilobar pneumonia with Aspiration -Status post bronchoscopy 02/08/2023 -- History pulmonary embolism: Stable -Factor V Leiden mutation & chronic immobility secondary to myotonic muscular dystrophy -CTA does not demonstrate PE - anticoagulation with heparin - reports chronic systemic anticoagulation -No clear indication as to why subtherapeutic (non-compliance?) GI - Dysphagia - reports prior attempts at feeding tube placement, this was discontinued -Would consider reevaluation as patient had recurrent aspiration events since last attempted PEG placement, possible GI consult Thursday Transaminitis Trending down -Unclear etiology, this appears to be occasionally recurrent Follow hepatitis panel Gastroparesis Takes metoclopramide at home Will give IV metoclopramide while in the hospital - Worthy -Urinalysis unremarkable, test negative ENDO - Continue with ICU hypoglycemia protocol HEME - Subtherapeutic anticoagulation -Continue heparin infusion until evaluation by GI/surgery for possible PEG tube Chronic thrombocytopenia: stable ID - Febrile illness Staphylococcal growth in blood culture 1 of 2 bottles --> likely contaminant -Repeat blood cultures 02/08/2023 have been negative to date Presumptive aspiration pneumonia -S/p bronchoscopy 02/08/2023 -Rocephin changed to Zosyn --Prophylaxis VTE: Heparin drip GI: Pepcid Lines: Peripheral Diet: Resume tube feeds Plan: In/out: -1077 L, urine output 2550, +2 L since coming to the hospital ABG 7.48/36/65 on PEEP of 8, 50% Chest x-ray from today does not show any significant change compared to before. Potassium and phosphorus being replaced. Patient's respiratory effort is not good. Her NIF was -40. She does take deep breaths and but we had to remind her on a regular basis Patient will be at a higher risk for reintubation. If she does get reintubated then she will need a trach. I will try to see how she does on pressure support for an hour or so and if she is doing okay then extubation to BiPAP will be thought. 40 mg of Lasix given today Repeat BMP later today I have personally spent 38 minutes of critical care time in the direct management of this patient. This is a life/limb threatening event. This includes time spent evaluating patient, direct bedside care, chart review, placing orders, interpretation of diagnostic studies, discussion with consultants, patie nt, and family members, as well as other required patient management activities. This time is exclusive of all separately billable procedures, and teaching time and separate from and in addition to any other critical care service time. Admission and Anticipated Discharge Date Admission Date: February 06, 2023 Subjective Patient seen and examined at bedside. No acute distress. Still spiking low-grade fever. Patient is answering questions appropriately Denies any headache, no chest pain, no abdominal pain Early in the morning patient had another bout of vomiting. I put her on pressure support at the time of examination, initially she was requiring pressure support of 12. I was able to gradually bring it down to 6/7 Review of Systems Review of Systems: All systems reviewed & are unremarkable except as noted in Subjective Physical Exam Physical Exam: Constitutional: No acute distress HEENT: PERRLA Respiratory system: Decreased air entry bilaterally, no wheeze, no rhonchi, positive crackles bilaterally CVS: S1-S2 positive, no murmurs or gallops Abdomen: Soft, nontender, nondistended, positive bowel sounds x4 Extremities: +2 pulses bilaterally radialis/ dorsalis pedis, no cyanosis, no edema Neuro: RASS -1, answering few questions by nodding her head Psych: Unable to assess G/U: Positive Worthy Skin: no rashes, warm and dry Lymphatic: no cervical or axillary lymphadenopathy Results & Data Results & Data Vital Signs (Past 12 Hours) Vital Signs Temp Pulse Resp BP Pulse Ox FiO2 02/11/23 07:34 103 H 21 92 50 02/11/23 06:00 37.9 C H 111 H 18 92 02/11/23 06:00 145/80 H 02/11/23 05:00 38.0 C H 106 H 19 93 02/11/23 05:00 122/76 02/11/23 04:00 38.0 C H 92 H 16 93 02/11/23 03:00 37.9 C H 82 19 100 02/11/23 03:00 99/76 L 02/11/23 02:00 38.1 C H 78 18 93 02/11/23 02:00 108/65 02/11/23 01:00 38.1 C H 96 H 18 95 02/11/23 01:00 107/71 02/11/23 04:00 50 02/11/23 02:03 83 19 93 50 02/11/23 00:00 38.2 C H 90 18 94 02/11/23 00:00 108/78 02/10/23 23:00 38.2 C H 89 18 95 02/10/23 23:00 106/79 02/10/23 22:00 38.1 C H 83 16 95 02/10/23 22:00 94/69 L 02/11/23 00:00 50 02/10/23 23:00 78 02/10/23 22:35 19 94 50 Laboratory Results 02/11/23 05:53 02/11/23 05:53 Coding Level of Care Code 15712 CRITICAL CARE 1ST 30-74M Diagnoses Thrombocytopenia D69.6 Hypercoagulable state D68.59 Acute hypoxemic respiratory failure J96.01 Respiratory failure J96.01 Chronicity: acute Respiratory failure complication: hypoxia Aspiration pneumonia J69.0 Aspiration pneumonia type: unspecified Laterality: bilateral Lung location: unspecified part of lung Supratherapeutic INR R79.1 Pulmonary embolism I26.99 Myotonic muscular dystrophy G71.11 Anxiety F41.9 Chronic back pain M54.9; G89.29 Time Spent (min) 38 (4) Respiratory failure Chronicity: acute Respiratory failure complication: hypoxia Qualified Code(s): J96.01 - Acute respiratory failure with hypoxia (5) Aspiration pneumonia Aspiration pneumonia type: unspecified Laterality: bilateral Lung location: unspecified part of lung Qualified Code(s): J69.0 - Pneumonitis due to inhalation of food and vomit
[2023-02-11] MEDS: POTASSIUM CHLORIDE / WTR 10 MEQ/100 ML PLCT IV SCH ×4 (09:45→21:07)
[2023-02-11] MEDS ORDERED: FUROSEMIDE 40 MG/4 ML VIAL IV ONE (09:45)
[2023-02-11] MEDS ORDERED: RAPID SEQUENCE INDUCTION BAG ONE (10:03)
--- NOTE | 2023-02-11 10:53 | XRay Report ---
XR chest 1V portable CLINICAL HISTORY: Try to extubate, had to be intubated TECHNIQUE: Single frontal radiograph of the chest was obtained. Comparison: Comparison is made to chest radiographs 02/11/2023 FINDINGS: Endotracheal and enteric tubes are in satisfactory position of the endotracheal tube terminates 25 mm from the bernadette. The cardiomediastinal silhouette is normal. Right lower lung airspace opacity. No e vidence of pleural effusion or pneumothorax. IMPRESSION: Right lower lung airspace opacity which may represent atelectasis, pneumonia, and/or aspiration. ACT 112: Negative or not required by law. Electronically signed by: Mauricio Winter M.D. 02/11/2023 10:52 AM
--- NOTE | 2023-02-11 10:58 | Procedure Note ---
Procedure Note Date of Service February 11, 2023 Note INTUBATION PROCEDURE NOTE: Attending: Dr Lorena Ackerman MD Patient was evaluated and plan to intubate was made for ventilatory failure. Sedative agent used: Lidocaine 100 mg, etomidate 20 mg Paralysis agent used: Rocuronium 30 mg Emergent consent was implied given patients rapidly declining clinical status and need for airway protection. The patient was prepared in the appropriate fashion. The patient was easily pre-oxygenated by using [id number] ventilation. With help of see-MAC grade 2 vocal cords were visualized and 7.5 Micronesian ETT was introduced on first attempt to 21 cm at the lip. The stylette was removed and ba lloon was inflated with 10mL of air. Appropriate Colorimetric change was appreciated for at least 10 breaths. Bilateral chest rise and breath sounds were appreciated without air sounds in the epigastrium. Patient tolerated the procedure well and there were no immediate complications. Chest Xray to follow for confirming placement. Coding CPT Codes Resuscitation - Resuscitation: 63025 Endotracheal Intubation, emergency ([id number]) [facility] [place] Procedure Codes (Charges) Resuscitation Resuscitation: 03063 Endotracheal Intubation, emergency
[2023-02-11 15:40] LABS: Calcium 8.5 mg/dl (8.6-10.3); Magnesium 2.3 mg/dl (1.7-2.4); Potassium 3.8 mmol/L (3.5-5.1)
[2023-02-11 15:58] LABS: BUN Creatinine Ratio 10.9 (10-20); Creatinine Clr Calc Pharmacy 94.3 ml/min; Est GFR (African American) 124.9 ml/min; Est GFR (Non-African American) 107.8 ml/min; Phosphorus 3.2 mg/dl (2.5-4.9)
[2023-02-11] MEDS: HEPARIN SODIUM/DEXTROSE 25,000 UNITS/500 ML BAG IV SCH (19:26)
[2023-02-11] MEDS ORDERED: FUROSEMIDE INJ 20 MG/2 ML VIAL IV ONE (21:00)
[2023-02-12] MEDS: PIPERACILLIN/TAZOBACTAM 4.5 GM in DEXTROSE 5% 100 ML IV SCH ×3 (01:03→15:03)
[2023-02-12] MEDS: TUBE FEEDING WATER FLUSH OG SCH ×6 (01:07→20:17)
[2023-02-12] MEDS: propofoL 1,000 MG/100 ML VIAL IV SCH ×4 (02:06→20:25)
[2023-02-12 04:47] LABS: iSTAT Allen Test Pass; iSTAT Art Bld Gas pCO2 Correct 35 mmHg (35-46); iSTAT Art Bld Gas pH Corrected 7.521 (7.35-7.45); iSTAT Arterial Blood Gas HCO3 28 meg/L (19-24); iSTAT Arterial Blood Gas pCO2 34 mmHg (35-46); iSTAT Arterial Blood Gas pH 7.54 (7.35-7.45); iSTAT Arterial Blood Gas pO2 57 mmHg (80-95); iSTAT Arterial Blood Gas pO2 C 61; iSTAT Carbon Dioxide 29 mmol/L (24-31); iSTAT FiO2 40 %; iSTAT Hematocrit 32 % (37-47); iSTAT Hemoglobin 10.9 g/dl (12.0-16.0); iSTAT Site R Radial; iSTAT Sodium 138 mmol/L (135-144)
[2023-02-12 05:15] LABS: Basophils # (auto) 0.02 K/uL (0-0.2); Basophils % (auto) 0.5 %; Eosinophils # (auto) 0.19 K/uL (0-0.50); Eosinophils % (auto) 4.3 %; Hematocrit (blood only) 35.3 % (37.0-47.0); Hemoglobin 11.7 g/dl (12.0-16.0); Immature Granulocytes # (auto) 0.07 K/uL (0.01-0.20); Immature Granulocytes % (auto) 1.6 %; Lymphocytes # (auto) 1.57 K/uL (1.2-3.4); Lymphocytes % (auto) 35.4 %; Mean Corpuscular Hemoglobin 30.2 pg (25.0-34.0); Mean Corpuscular Hgb Conc 33.1 g/dL (32.0-36.0); Mean Corpuscular Volume 91.2 fL (80.0-100.0); Mean Platelet Volume 11.8 fL (9.4-12.4); Monocytes # (auto) 0.48 K/uL (0.11-0.59); Monocytes % (auto) 10.8 %; Neutrophils # (auto) 2.11 K/uL (1.40-6.50); Neutrophils % (auto) 47.4 %; Nucleated RBC # (auto) 0.03 K/uL (0-0.12); Nucleated RBC % (auto) 0.7 %; Platelet Count 143 K/uL (130-400); RDW Coefficient of Variation 15.9 % (11.5-14.5); RDW Standard Deviation 53.1 fL (36.4-46.3); Red Blood Count 3.87 M/uL (4.20-5.40); White Blood Count 4.44 K/ul (4.8-10.8)
[2023-02-12 05:26] LABS: Partial Thromboplastin Ratio 1.4; Partial Thromboplastin Time 38.2 Seconds (21.0-31.0)
[2023-02-12 05:32] LABS: Calcium 9.4 mg/dl (8.6-10.3); Magnesium 2.4 mg/dl (1.7-2.4); Potassium 3.3 mmol/L (3.5-5.1)
[2023-02-12 05:44] LABS: Creatinine Clr Calc Pharmacy 82.7 ml/min; Est GFR (African American) 115.3 ml/min; Est GFR (Non-African American) 99.5 ml/min; Phosphorus 1.9 mg/dl (2.5-4.9)
[2023-02-12] MEDS ORDERED: POTASSIUM PHOS 3 MMOL/1 ML INFUSION IV STA (06:38)
--- NOTE | 2023-02-12 07:14 | Hospitalist Progress Note ---
Date of Service February 12, 2023 Assessment & Plan (1) Respiratory failure: Plan: Per previous hospitalist's notes with addendum: Acute hypoxic respiratory failure Secondary to aspiration pneumonia Recent consumption of marijuana cookies, hx IBS/gastroparesis -- Remains intubated, sedated --02/08: Status post bronchoscopy Fiberoptic bronchoscopy was performed via endotracheal tube. Bronchioalveolar lavage of the left lower lobe was performed. Findings included: Mucopurulent secretions suctioned predominantly from the left lower lobe. [place] appearance. No significant hyponatremia in the airways. 02/11 pt extubated and required re-intubation -> plan for trach, ENT consulted Still having low grade fever -- Blood cultures: 02/06/23 coag neg staph. - likely contaminant -- Repeat blood cultx 02/08/23 - Negative so far Sputum culture: Angelita albicans Bronchial lavage left lower lobe cultures: Angelita albicans --Continue Zosyn IV May need coverage for fungal pneumonia? Management per ICU/pulmonary Continue tube feeding Hypercoagulable state (history PE, factor V Leiden mutation as per records) on Coumadin, INR subtherapeutic --Currently on heparin drip Hx orthostatic hypotension as per records, patient not currently on prior midodrine Rx --Monitor blood pressure Hx myotonic dystrophy Borderline personality disorder/anxiety/mood disorder History of traumatic brain injury Prediabetes, current hemoglobin A1c of 5.7 Transaminitis, possible fatty liver disease with note of hepatic change in outpatient CT abdomen pelvis October 2022 Hepatitis panel obtained and negative Chronic thrombocytopenia - cont. to monitor DVT prophylaxis. Heparin drip GI prophylaxis. Famotidine Full code Disposition: ICU Lives at home with her Admission and Anticipated Discharge Date Admission Date: February 06, 2023 Subjective Follow-up for acute hypoxic respiratory failure, aspiration pneumonia, etc. Pt awake during my exam, on mechanical ventilator She was able to nod, etc. 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 Denies chest pain or abdominal pain. Still with low grade fever. Review of Systems Review of Systems: All systems reviewed & are unremarkable except as noted in Subjective Physical Exam Physical Exam: General - young F, intubated, awake and cooperative Lungs - decreased air entry, + crackles b/l Heart- normal rate, regular rhythm; no murmurs Abdomen- normal bowel sounds, nondistended, soft, + bowel sounds Extremities- no pretibial edema Neuro- intubated but awake and cooperative Skin- warm & dry Results & Data Results & Data Vital Signs (Past 12 Hours) Vital Signs Temp Pulse Resp BP Pulse Ox O2 Del Method FiO2 02/12/23 06:30 37.7 C H 75 15 93/60 L 94 02/12/23 06:00 37.9 C H 88 15 105/67 95 02/12/23 05:30 38.0 C H 90 15 100/67 97 02/12/23 05:00 38.0 C H 90 16 105/69 97 02/12/23 04:30 38.0 C H 88 16 99/71 L 95 02/12/23 04:55 15 40 02/12/23 03:52 69 18 97 40 02/12/23 04:00 37.9 C H 85 18 89/64 L 92 02/12/23 02:31 37.9 C H 99 H 18 95/67 L 94 02/12/23 02:00 37.9 C H 110 H 18 138/110 H 98 02/12/23 04:19 40 02/12/23 00:20 106 H 18 93 40 02/12/23 01:01 38.0 C H 101 H 18 110/77 94 02/12/23 00:00 38.0 C H 108 H 18 110/85 93 02/11/23 23:31 38.1 C H 98 H 18 108/82 92 02/11/23 23:01 38.2 C H 99 H 18 97/63 L 94 02/12/23 00:47 50 02/12/23 00:00 105 H 02/11/23 22:00 38.2 C H 106 H 18 125/83 92 02/11/23 21:01 38.1 C H 92 H 18 104/65 93 02/11/23 20:00 38.1 C H 108 H 23 132/92 96 02/11/23 20:48 90 18 95 40 02/11/23 19:30 38.2 C H 103 H 18 116/68 93 02/11/23 20:11 50 02/11/23 19:58 Mechanical Vent 50 Laboratory Results 02/12/23 02/12/23 02/12/23 Range/Units 05:00 05:00 05:00 WBC 4.44 L (4.8-10.8) K/ul RBC 3.87 L (4.20-5.40) M/uL Hgb 11.7 L (12.0-16.0) g/dl POC Hgb (12.0-16.0) g/dl Hct 35.3 L (37.0-47.0) % POC Hct (37-47) % MCV 91.2 (80.0-100.0) fL MCH 30.2 (25.0-34.0) pg MCHC 33.1 (32.0-36.0) g/dL RDW Std Deviation 53.1 H (36.4-46.3) fL RDW Coeff of Ora 15.9 H (11.5-14.5) % Plt Count 143 (130-400) K/uL MPV 11.8 (9.4-12.4) fL Immature Gran % (Auto) 1.6 % Neut % (Auto) 47.4 % Lymph % (Auto) 35.4 % [place] % (Auto) 10.8 % Eos % (Auto) 4.3 % Baso % (Auto) 0.5 % Neut # (Auto) 2.11 (1.40-6.50) K/uL Lymph # (Auto) 1.57 (1.2-3.4) K/uL [place] # (Auto) 0.48 (0.11-0.59) K/uL Eos # (Auto) 0.19 (0-0.50) K/uL Baso # (Auto) 0.02 (0-0.2) K/uL Immature Gran # (Auto) 0.07 (0.01-0.20) K/uL Absolute Nucleated RBC 0.03 (0-0.12) K/uL Nucleated RBC % (auto) 0.7 % APTT 38.2 H (21.0-31.0) Seconds PTT Ratio 1.4 Sample Site POC pH (7.35-7.45) POC pCO2 (35-46) mmHg POC pO2 (80-95) mmHg POC HCO3 (19-24) lidya/L POC Total CO2 (24-31) mmol/L POC Base Excess (-9-1.8) lidya/L ABG pH (Temp Correct) (7.35-7.45) ABG pCO2 (Temp Corrct (35-46) mmHg POC ABG pO2 at Pt Temp POC ABG O2 Sat (90-95) % Maurice Test O2 Delivery Device POC O2 Rate POC FiO2 % Tidal Volume PEEP POC Sodium (135-144) mmol/L Sodium 139 (136-145) mmol/L POC Potassium (3.3-5.0) mmol/L Potassium 3.3 L (3.5-5.1) mmol/L Chloride 102 (98-107) mmol/L Carbon Dioxide 25 (21-32) mmol/L Anion Gap 12 H (3-11) BUN 8 (6-23) mg/dl Creatinine 0.73 (0.6-1.2) mg/dl Est Cr Clr Drug Dosing 82.7 ml/min Est GFR ( Amer) 115.3 ml/min Est GFR (Non-Af Amer) 99.5 ml/min BUN/Creatinine Ratio 11.0 (10-20) Glucose 105 H (70-99(Fasting)) mg/dl Calcium 9.4 (8.6-10.3) mg/dl Phosphorus 1.9 L D (2.5-4.9) mg/dl Magnesium 2.4 (1.7-2.4) mg/dl 02/12/23 02/11/23 Range/Units 04:24 14:59 WBC (4.8-10.8) K/ul RBC (4.20-5.40) M/uL Hgb (12.0-16.0) g/dl POC Hgb 10.9 L (12.0-16.0) g/dl Hct (37.0-47.0) % POC Hct 32 L (37-47) % MCV (80.0-100.0) fL MCH (25.0-34.0) pg MCHC (32.0-36.0) g/dL RDW Std Deviation (36.4-46.3) fL RDW Coeff of Ora (11.5-14.5) % Plt Count (130-400) K/uL MPV (9.4-12.4) fL Immature Gran % (Auto) % Neut % (Auto) % Lymph % (Auto) % [place] % (Auto) % Eos % (Auto) % Baso % (Auto) % Neut # (Auto) (1.40-6.50) K/uL Lymph # (Auto) (1.2-3.4) K/uL [place] # (Auto) (0.11-0.59) K/uL Eos # (Auto) (0-0.50) K/uL Baso # (Auto) (0-0.2) K/uL Immature Gran # (Auto) (0.01-0.20) K/uL Absolute Nucleated RBC (0-0.12) K/uL Nucleated RBC % (auto) % APTT (21.0-31.0) Seconds PTT Ratio Sample Site R Radial POC pH 7.54 H* (7.35-7.45) POC pCO2 34 L (35-46) mmHg POC pO2 57 L (80-95) mmHg POC HCO3 28 H (19-24) lidya/L POC Total CO2 29 (24-31) mmol/L POC Base Excess 6.0 H (-9-1.8) lidya/L ABG pH (Temp Correct) 7.521 H* (7.35-7.45) ABG pCO2 (Temp Corrct 35 (35-46) mmHg POC ABG pO2 at Pt Temp 61 POC ABG O2 Sat 93.0 (90-95) % Maurice Test Pass O2 Delivery Device Ventilator POC O2 Rate 18 POC FiO2 40 % Tidal Volume 350 PEEP 6 POC Sodium 138 (135-144) mmol/L Sodium 141 (136-145) mmol/L POC Potassium 3.0 L (3.3-5.0) mmol/L Potassium 3.8 (3.5-5.1) mmol/L Chloride 104 (98-107) mmol/L Carbon Dioxide 25 (21-32) mmol/L Anion Gap 12 H (3-11) BUN 7 (6-23) mg/dl Creatinine 0.64 (0.6-1.2) mg/dl Est Cr Clr Drug Dosing 94.3 ml/min Est GFR ( Amer) 124.9 ml/min Est GFR (Non-Af Amer) 107.8 ml/min BUN/Creatinine Ratio 10.9 (10-20) Glucose 110 H (70-99(Fasting)) mg/dl Calcium 8.5 L (8.6-10.3) mg/dl Phosphorus 3.2 D (2.5-4.9) mg/dl Magnesium 2.3 (1.7-2.4) mg/dl Medications Administered Current Inpatient Medications Fentanyl Citrate (Fentanyl Citrate Pf 100 Mcg/2 Ml Vial) 50 mcg IV Q4H PRN PRN Reason: Pain or Agitation Stop: 02/22/23 00:02 Last Admin: 02/10/23 19:56 Dose: 50 mcg Promethazine HCl 12.5 mg/ (Sodium Chloride) 50.5 mls @ 202 mls/hr IV Q6H PRN PRN Reason: Nausea And Vomiting Stop: 03/08/23 20:35 Last Infusion: 02/09/23 05:10 Dose: Infused Heparin Sodium/Dextrose (Heparin Sodium/Dextrose) 25,000 units in 500 mls @ 24 mls/hr IV .[id number] [facility]; Protocol Stop: 03/08/23 22:29 Last Titration: 02/12/23 07:05 Dose: 1,200 units/hr, 24 mls/hr Famotidine 20 mg/ Syringe 5 mls @ 2.5 mls/min IV Q12 JESSY Stop: 03/08/23 22:24 Last Admin: 02/11/23 19:45 Dose: 2.5 mls/min Piperacillin Sod/Tazobactam (Sod 4.5 gm/ Dextrose) 120 mls @ 30 mls/hr IV Q8H [facility]; Protocol Stop: 02/15/23 15:59 Last Infusion: 02/12/23 05:07 Dose: Infused Acetaminophen (Ofirmev) 1,000 mg in 100 mls @ 400 mls/hr IV Q8H PRN PRN Reason: Fever Stop: 02/13/23 09:53 Last Infusion: 02/10/23 16:40 Dose: Infused Propofol (Diprivan) 1,000 mg in 100 mls @ 4.254 mls/hr IV .[id number] [facility]; Protocol Stop: 02/13/23 21:29 Last Titration: 02/12/23 07:05 Dose: 10 mcg/kg/min, 4.3 mls/hr Potassium Phosphate 30 mmol/ (Sodium Chloride) 510 mls @ 102 mls/hr IV 0730 ONE Stop: 02/12/23 12:29 Metoclopramide HCl (Metoclopramide Hcl Inj 5 Mg/Ml 2 Ml Vial) 5 mg IV DAILY [facility] Stop: 03/12/23 08:59 Last Admin: 02/11/23 08:23 Dose: 5 mg Nutritional Formula (Peptamen Intense Vhp 1.0 Pedro Luis 1,000 Ml Bag) 1,000 ml OG .See Protocol JESSY; Protocol Stop: 03/10/23 10:59 Last Admin: 02/09/23 16:01 Dose: 1,000 ml Propofol (Propofol Bolus From Bag) 20 mg IV Q5M PRN PRN Reason: Sedation Stop: 02/13/23 21:24 Last Admin: 02/11/23 06:15 Dose: 20 mg Sterile Water (Tube Feeding Water Flush) 30 ml OG Q4H [facility] Stop: 03/11/23 15:44 Last Admin: 02/12/23 03:33 Dose: Not Given (1) Respiratory failure Chronicity: acute Respiratory failure complication: hypoxia Qualified Code(s): J96.01 - Acute respiratory failure with hypoxia
[2023-02-12] MEDS ORDERED: POTASSIUM PHOSPHATE 30 MMOL in SODIUM CHLORIDE 0.9% 500 ML IV ONE (07:30)
--- NOTE | 2023-02-12 07:33 | XRay Report ---
XR chest 1V portable HISTORY: Resp failure COMPARISON: Chest 02/11/2023. FINDINGS: The endotracheal tube terminates approximately 2.5 cm from the bernadette. Nasogastric tube ter minates below the diaphragm. The tip is not included on this study. There are low lung volumes. No pn eumothorax. The cardiac silhouette is stable in size. No acute fractures identified. Scattered multif ocal airspace opacities and bibasilar consolidation persists. Trace bilateral pleural effusions again noted. IMPRESSION: 1. Satisfactory support line placement. 2. No change in the multifocal airspace opacities and trace bilateral pleural effusions. ACT 112: Negative or not required by law. Electronically signed by: James Higuera M.D. 02/12/2023 7:31 AM
[2023-02-12] MEDS ORDERED: FUROSEMIDE INJ 20 MG/2 ML VIAL IV ONE ×2 (07:34→21:07)
--- NOTE | 2023-02-12 07:35 | Critical Care Progress Note ---
Date of Service February 12, 2023 Assessment & Plan (1) Thrombocytopenia: (2) Hypercoagulable state: (3) Acute hypoxemic respiratory failure: (4) Respiratory failure: (5) Aspiration pneumonia: (6) Supratherapeutic INR: (7) Pulmonary embolism: (8) Myotonic muscular dystrophy: (9) Anxiety: (10) Chronic back pain: Plan Reason Critically Ill: 47-year-old female presents to the ICU for acute hypoxic respiratory failure following an aspiration event after the patient had ingested marijuana edibles, now requiring mechanical ventilation. Neuro - -- Acute metabolic encephalopathy - History of marijuana edible use, reported as possible recent overdose - D/W denies recent depressive episodes, no verbalized intent to harm -- Anxiety/depression/Borderline personality disorder continue home medications once patient is extubated and taking p.o. - Additional Hx from , prior mental health hospitalizations which were voluntary in nature. -He does not believe there was ever overdose however he did report if there was it was secondary with melatonin --Small fiber neuropathy/Myotonic muscular dystrophy -Follows with Nat --Chronic coccygeal pain - reports patient treats by consumption of THC tar which she bakes into cookies and consumed multiple cookies -Dosing strategy unclear Sedationpropofol Cardiac - Hisory PFO -Echocardiogram with bubble study: Reported as limited bubble study, no evidence of right to left shunting History of orthostatic hypotension -Midodrine not listed as active per outpatient medication reconciliation Respiratory - -- VDRF secondary to acute hypoxic respiratory failure sec to multilobar pneumonia with Aspiration -Status post bronchoscopy 02/08/2023 Trial of extubation 02/11/2023 which the patient unfortunately failed. Reintubated 02/11/2023 Patient will need tracheostomy and PEG tube -- History pulmonary embolism: Stable -Factor V Leiden mutation & chronic immobility secondary to myotonic muscular dystrophy -CTA does not demonstrate PE - anticoagulation with heparin - reports chronic systemic anticoagulation -No clear indication as to why subtherapeutic (non-compliance?) GI - Dysphagia - reports prior attempts at feeding tube placement, this was discontinued -Would consider reevaluation as patient had recurrent aspiration events since last attempted PEG placement, possible GI consult Thursday Transaminitis Trending down -Unclear etiology, this appears to be occasionally recurrent Follow hepatitis panel Gastroparesis Takes metoclopramide at home Will give IV metoclopramide while in the hospital - Worthy -Urinalysis unremarkable, test negative ENDO - Continue with ICU hypoglycemia protocol HEME - Subtherapeutic anticoagulation -Continue heparin infusion until evaluation by GI/surgery for possible PEG tube Chronic thrombocytopenia: stable ID - Febrile illness Staphylococcal growth in blood culture 1 of 2 bottles --> likely contaminant -Repeat blood cultures 02/08/2023 have been negative to date Presumptive aspiration pneumonia -S/p bronchoscopy 02/08/2023 -Rocephin changed to Zosyn --Prophylaxis VTE: Heparin drip GI: Pepcid Lines: Peripheral Diet: Resume tube feeds Plan: In/out: -216 mL, urine output 2352, + 1.8 L since coming to the hospital ABG 7.54/32/57 on PEEP of 6, 40% Respiratory it was decreased to 14, PEEP was increased to 8 Chest x-ray from today does not show any significant change compared to yesterday Patient will need tracheostomy, plan is to have it done tentatively tomorrow by ENT 20 mg of Lasix given today. Potassium and phosphorus being replaced, repeat BMP later today Case was discussed with patient's Gunner [phone] I have personally spent 36 minutes of critical care time in the direct management of this patient. This is a life/limb threatening event. This includes time spent evaluating patient, direct bedside care, chart review, placing orders, interpretation of diagnostic studies, discussion with consultants, pat ient, and family members, as well as other required patient management activities. This time is exclusive of all separately billable procedures, and teaching time and separate from and in addition to any other critical care service time. Admission and Anticipated Discharge Date Admission Date: February 06, 2023 Subjective Patient seen and examined at bedside. No acute distress, no adverse events overnight Patient was on 10 propofol at the time of examination breathing with the vent. MAP in the 79, saturating 94% on 40% FiO2. Still spiking low-grade fever. Review of Systems Review of Systems: Unobtainable due to endotracheal tube Physical Exam Physical Exam: Constitutional: No acute distress HEENT: PERRLA Respiratory system: Decreased air entry bilaterally, no wheeze, no rhonchi, positive crackles bilaterally CVS: S1-S2 positive, no murmurs or gallops Abdomen: Soft, nontender, nondistended, positive bowel sounds x4 Extremities: +2 pulses bilaterally radialis/ dorsalis pedis, no cyanosis, no edema Neuro: RASS -2 Psych: Unable to assess G/U: Positive Worthy Skin: no rashes, warm and dry Lymphatic: no cervical or axillary lymphadenopathy Results & Data Results & Data Vital Signs (Past 12 Hours) Vital Signs Temp Pulse Resp BP Pulse Ox O2 Del Method FiO2 02/12/23 06:30 37.7 C H 75 15 93/60 L 94 02/12/23 06:00 37.9 C H 88 15 105/67 95 02/12/23 05:30 38.0 C H 90 15 100/67 97 02/12/23 05:00 38.0 C H 90 16 105/69 97 02/12/23 04:30 38.0 C H 88 16 99/71 L 95 02/12/23 04:55 15 40 02/12/23 03:52 69 18 97 40 02/12/23 04:00 37.9 C H 85 18 89/64 L 92 02/12/23 02:31 37.9 C H 99 H 18 95/67 L 94 02/12/23 02:00 37.9 C H 110 H 18 138/110 H 98 02/12/23 04:19 40 02/12/23 00:20 106 H 18 93 40 02/12/23 01:01 38.0 C H 101 H 18 110/77 94 02/12/23 00:00 38.0 C H 108 H 18 110/85 93 02/11/23 23:31 38.1 C H 98 H 18 108/82 92 02/11/23 23:01 38.2 C H 99 H 18 97/63 L 94 02/12/23 00:47 50 02/12/23 00:00 105 H 02/11/23 22:00 38.2 C H 106 H 18 125/83 92 02/11/23 21:01 38.1 C H 92 H 18 104/65 93 02/11/23 20:00 38.1 C H 108 H 23 132/92 96 02/11/23 20:48 90 18 95 40 02/11/23 20:11 50 02/11/23 19:58 Mechanical Vent 50 Laboratory Results 02/12/23 05:00 02/12/23 05:00 Coding Level of Care Code 93030 CRITICAL CARE 1ST 30-74M Diagnoses Thrombocytopenia D69.6 Hypercoagulable state D68.59 Acute hypoxemic respiratory failure J96.01 Respiratory failure J96.01 Chronicity: acute Respiratory failure complication: hypoxia Aspiration pneumonia J69.0 Aspiration pneumonia type: unspecified Laterality: bilateral Lung location: unspecified part of lung Supratherapeutic INR R79.1 Pulmonary embolism I26.99 Myotonic muscular dystrophy G71.11 Anxiety F41.9 Chronic back pain M54.9; G89.29 Time Spent (min) 36 (4) Respiratory failure Chronicity: acute Respiratory failure complication: hypoxia Qualified Code(s): J96.01 - Acute respiratory failure with hypoxia (5) Aspiration pneumonia Aspiration pneumonia type: unspecified Laterality: bilateral Lung location: unspecified part of lung Qualified Code(s): J69.0 - Pneumonitis due to inhalation of food and vomit
[2023-02-12] MEDS: HEPARIN SODIUM/DEXTROSE 25,000 UNITS/500 ML BAG IV SCH ×2 (08:02→15:02)
[2023-02-12] MEDS: FAMOTIDINE 20 MG in SYRINGE 3 ML IV SCH ×2 (08:31→21:42)
[2023-02-12] MEDS: METOCLOPRAMIDE HCL INJ 5 MG/ML 2 ML VIAL IV SCH (08:31)
[2023-02-12] MEDS: ACETAMINOPHEN 1,000 MG/100 ML VIAL IV PRN ×2 (09:25→20:19)
--- NOTE | 2023-02-12 10:25 | ENT Consultation ---
Date of Consultation February 12, 2023 Assessment & Plan (1) Respiratory failure: I have arranged for a tracheotomy in the operating room under general anesthesia on February 13 History of Present Illness Reason for Consultation: Patient presents with a history of aspiration requiring intubation. Patient has been intubated for 6 days and a trial of extubation failed. Patient is being considered for tracheotomy. Attending Physician: Edwin Disla MD Allergies Allergy/AdvReac Type Severity Reaction Status Date / Time hydrocodone Allergy Severe EDEMA Verified 02/06/23 17:37 FACE, LIPS, TONGUE mushroom Allergy Intermediate NAUSEA/VOMI Verified 02/06/23 17:37 TING Penicillins Allergy Intermediate EDEMA Verified 02/06/23 17:37 azithromycin AdvReac Severe NAUSEA/VOMI Verified 02/06/23 17:37 TING chicken derived AdvReac Intermediate DIARRHEA/NA Verified 02/06/23 17:37 USEA/VOMITI NG mivacurium AdvReac Intermediate VOMITING Verified 02/06/23 17:37 PER [facility] [place] MED LIST mold AdvReac Intermediate NAUSEA/VOMI Verified 02/06/23 17:37 TING cabbage AdvReac Unknown Unknown Verified 02/07/23 10:24 Home Medications Medication Instructions Recorded Confirmed Type fluoxetine 20 mg capsule 20 mg PO QAM 10/06/18 02/06/23 History warfarin 4 mg tablet See Rx Instructions .Route .COMPLEX 05/30/19 02/06/23 History acetaminophen 500 mg tablet 1,000 mg PO Q6H PRN Pain 08/09/19 02/06/23 History melatonin 10 mg tablet 10 mg PO HS 04/26/20 02/06/23 History Cbd Cream 1 applic PO TID PRN Pain 11/22/21 02/06/23 History pregabalin 75 mg capsule 75 mg PO BID 11/03/22 02/06/23 History Delta 8 Gummy 1 tab PO DAILY PRN Pain 02/06/23 02/06/23 History metoclopramide HCl 5 mg tablet 5 mg PO HS 02/06/23 02/06/23 History ondansetron HCl 4 mg tablet 4 mg PO Q8H PRN NAUSEA/VOMITING 02/06/23 02/06/23 History Patient History Medical History Anxiety Borderline personality disorder Chronic back pain Clinical depression 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 Ovarian cyst Pulmonary embolism (08/15/12) B/L (2010); diagnosed with Factor V Leiden- on warfarin Surgical History H/O exploratory laparotomy + OVARIAN CYST REMOVAL; Exploratory lap: 01/15/17: Grade view 1, MAC#3, ETT 7.0 + TAP block at [facility] History of adenoidectomy History of blepharoplasty x2 History of cataract surgery History of cholecystectomy History of cystoscopy History of esophagogastroduodenoscopy (EGD) History of tonsillectomy Hx of lumpectomy RIGHT Slow to wake up after anesthesia Family History Father Myotonic muscular dystrophy Grandfather (Paternal) Myotonic muscular dystrophy Brother Myotonic muscular dystrophy Grandmother (Paternal) Myotonic muscular dystrophy Other Cancer Hypertension Social History Smoking Status: Never smoker Second Hand Exposure: No; Do You Dip or Chew Tobacco: No; Hx Alcohol Use: Yes Alcohol type: wine Hx Substance Use: Yes Substance Use Type Other:: recent medical marijuana card - made THC cookies according to ER record Preferred Language: Kuwaiti Communication Ability: Unable Communication Ability Comment: t/v now - no impairment prior Visual Impairment: No Limitations 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 There is no evidence of any scarring. Results & Data Vital Signs (Past 12 Hours) Vital Signs Temp Pulse Resp BP Pulse Ox FiO2 02/12/23 08:00 80 02/12/23 07:21 86 15 96 40 02/12/23 06:30 37.7 C H 75 15 93/60 L 94 02/12/23 06:00 37.9 C H 88 15 105/67 95 02/12/23 05:30 38.0 C H 90 15 100/67 97 02/12/23 05:00 38.0 C H 90 16 105/69 97 02/12/23 04:30 38.0 C H 88 16 99/71 L 95 02/12/23 04:55 15 40 02/12/23 03:52 69 18 97 40 02/12/23 04:00 37.9 C H 85 18 89/64 L 92 02/12/23 02:31 37.9 C H 99 H 18 95/67 L 94 02/12/23 02:00 37.9 C H 110 H 18 138/110 H 98 02/12/23 04:19 40 02/12/23 00:20 106 H 18 93 40 02/12/23 01:01 38.0 C H 101 H 18 110/77 94 02/12/23 00:00 38.0 C H 108 H 18 110/85 93 02/11/23 23:31 38.1 C H 98 H 18 108/82 92 02/11/23 23:01 38.2 C H 99 H 18 97/63 L 94 02/12/23 00:47 50 02/12/23 00:00 105 H PG Care Time/CCT Total # of Minutes Spent Total Time Spent with Patient: Total time spent is greater than 50% in coordination of care (as documented) at patient's floor/unit and/or counseling patient: [place] [address] IN/OBS CONSULT LVL 2,35M Patient Type New Diagnoses Respiratory failure J96.01 Chronicity: acute Respiratory failure complication: hypoxia (1) Respiratory failure Chronicity: acute Respiratory failure complication: hypoxia Qualified Code(s): J96.01 - Acute respiratory failure with hypoxia
[2023-02-12 13:01] LABS: Partial Thromboplastin Ratio 1.5
[2023-02-12 13:06] LABS: Partial Thromboplastin Time 41.2 Seconds (21.0-31.0)
[2023-02-12] MEDS: PEPTAMEN INTENSE VHP 1.0 CAL 1,000 ML BAG OG SCH (15:00)
[2023-02-12 17:40] LABS: Calcium 8.6 mg/dl (8.6-10.3); Potassium 3.8 mmol/L (3.5-5.1)
[2023-02-12 17:49] LABS: BUN Creatinine Ratio 11.9 (10-20); Creatinine Clr Calc Pharmacy 88.6 ml/min; Est GFR (Non-African American) 106.2 ml/min; Phosphorus 4.7 mg/dl (2.5-4.9)
[2023-02-12] MEDS: fentaNYL citrate PF 100 MCG/2 ML VIAL IV PRN ×2 (19:25→22:55)
[2023-02-12] MEDS: POTASSIUM CHLORIDE / WTR 10 MEQ/100 ML PLCT IV SCH ×2 (20:17→21:30)
[2023-02-12] MEDS: PROPOFOL BOLUS FROM BAG IV PRN (23:51)
[2023-02-13] MEDS: PIPERACILLIN/TAZOBACTAM 4.5 GM in DEXTROSE 5% 100 ML IV SCH ×3 (01:57→15:45)
[2023-02-13] MEDS: PROPOFOL BOLUS FROM BAG IV PRN (02:49)
[2023-02-13] MEDS: fentaNYL citrate PF 100 MCG/2 ML VIAL IV PRN ×5 (03:02→22:42)
[2023-02-13] MEDS: propofoL 1,000 MG/100 ML VIAL IV SCH ×2 (04:25→21:08)
[2023-02-13] MEDS: TUBE FEEDING WATER FLUSH OG SCH ×6 (04:32→21:10)
[2023-02-13 04:57] LABS: Basophils # (auto) 0.03 K/uL (0-0.2); Basophils % (auto) 0.6 %; Eosinophils # (auto) 0.19 K/uL (0-0.50); Eosinophils % (auto) 3.7 %; Hemoglobin 11.9 g/dl (12.0-16.0); Immature Granulocytes # (auto) 0.19 K/uL (0.01-0.20); Immature Granulocytes % (auto) 3.7 %; Lymphocytes # (auto) 1.04 K/uL (1.2-3.4); Lymphocytes % (auto) 20.4 %; Mean Corpuscular Hgb Conc 33.1 g/dL (32.0-36.0); Mean Corpuscular Volume 90.7 fL (80.0-100.0); Mean Platelet Volume 11.5 fL (9.4-12.4); Monocytes # (auto) 0.42 K/uL (0.11-0.59); Monocytes % (auto) 8.2 %; Neutrophils # (auto) 3.24 K/uL (1.40-6.50); Neutrophils % (auto) 63.4 %; Platelet Count 157 K/uL (130-400); RDW Coefficient of Variation 15.6 % (11.5-14.5); RDW Standard Deviation 51.8 fL (36.4-46.3); Red Blood Count 3.97 M/uL (4.20-5.40); White Blood Count 5.11 K/ul (4.8-10.8)
[2023-02-13 05:16] LABS: BUN Creatinine Ratio 11.1 (10-20); Calcium 9.9 mg/dl (8.6-10.3); Creatinine Clr Calc Pharmacy 94.2 ml/min; Est GFR (African American) 125.6 ml/min; Est GFR (Non-African American) 108.3 ml/min; Magnesium 2.5 mg/dl (1.7-2.4); Phosphorus 2.2 mg/dl (2.5-4.9); Potassium 3.6 mmol/L (3.5-5.1)
[2023-02-13 05:23] LABS: Partial Thromboplastin Ratio 0.8; Partial Thromboplastin Time 23.6 Seconds (21.0-31.0)
--- NOTE | 2023-02-13 07:06 | Anesthesiology Consultation ---
Date of Service February 13, 2023 Assessment & Plan Chart Review Chart Review: Acceptable Risk for Surgery and Patient NOT seen in Pre Admission Testing Consults Requested none ASA ASA4 Proposed Anesthesia Anesthesia Type: General History Surgery Operation Date: 02/13/23 07:15 Proposed Procedures p Tracheostomy - Gustavo Felton MD Height/Weight Height: 4 ft 11 in Weight: 67.5 kg Allergies Allergy/AdvReac Type Severity Reaction Status Date / Time hydrocodone Allergy Severe EDEMA Verified 02/06/23 17:37 FACE, LIPS, TONGUE mushroom Allergy Intermediate NAUSEA/VOMI Verified 02/06/23 17:37 TING Penicillins Allergy Intermediate EDEMA Verified 02/06/23 17:37 azithromycin AdvReac Severe NAUSEA/VOMI Verified 02/06/23 17:37 TING chicken derived AdvReac Intermediate DIARRHEA/NA Verified 02/06/23 17:37 USEA/VOMITI NG mivacurium AdvReac Intermediate VOMITING Verified 02/06/23 17:37 PER [facility] MED LIST mold AdvReac Intermediate NAUSEA/VOMI Verified 02/06/23 17:37 TING cabbage AdvReac Unknown Unknown Verified 02/07/23 10:24 Medications Home Medications Medication Instructions Recorded Confirmed Last Taken fluoxetine 20 mg capsule 20 mg PO QAM 10/06/18 02/06/23 11/12/22 warfarin 4 mg tablet See Rx Instructions .Route .COMPLEX 05/30/19 02/06/23 11/07/22 acetaminophen 500 mg tablet 1,000 mg PO Q6H PRN Pain 08/09/19 02/06/23 08/17/21 melatonin 10 mg tablet 10 mg PO HS 04/26/20 02/06/23 11/12/22 Cbd Cream 1 applic PO TID PRN Pain 11/22/21 02/06/23 Unknown pregabalin 75 mg capsule 75 mg PO BID 11/03/22 02/06/23 11/11/22 Delta 8 Gummy 1 tab PO DAILY PRN Pain 02/06/23 02/06/23 Unknown metoclopramide HCl 5 mg tablet 5 mg PO HS 02/06/23 02/06/23 Unknown ondansetron HCl 4 mg tablet 4 mg PO Q8H PRN NAUSEA/VOMITING 02/06/23 02/06/23 Unknown Active Medications Generic Name Dose Route Start Last Admin Trade Name Freq PRN Reason Stop Dose Admin Fentanyl Citrate 50 mcg 02/08/23 00:03 02/13/23 03:02 Fentanyl Citrate Pf 100 Mcg/2 Ml Vial IV 02/22/23 00:02 50 mcg Q4H PRN Administration Pain or Agitation Promethazine HCl 12.5 mg/ 50.5 mls @ 202 mls/hr 02/06/23 20:36 02/09/23 05:10 Sodium Chloride IV 03/08/23 20:35 Infused Q6H PRN Infusion Nausea And Vomiting Heparin Sodium/Dextrose 25,000 units in 500 mls @ 0 mls/hr 02/06/23 22:30 02/13/23 00:59 Heparin Sodium/Dextrose IV 03/08/23 22:29 0 units/hr .Q0M JESSY 0 mls/hr Titration Protocol 0 UNITS/HR Famotidine 20 mg/ Syringe 5 mls @ 2.5 mls/min 02/06/23 22:25 02/12/23 21:42 IV 03/08/23 22:24 2.5 mls/min Q12 JESSY Administration Piperacillin Sod/Tazobactam 120 mls @ 30 mls/hr 02/08/23 16:00 02/13/23 05:45 Sod 4.5 gm/ Dextrose IV 02/15/23 15:59 Infused Q8H JESSY Infusion Protocol Acetaminophen 1,000 mg in 100 mls @ 400 mls/hr 02/10/23 09:54 02/12/23 20:55 Ofirmev IV 02/13/23 09:53 Infused Q8H PRN Infusion Fever Propofol 1,000 mg in 100 mls @ 4.254 mls/hr 02/10/23 21:30 02/13/23 05:00 Diprivan IV 02/13/23 21:29 10 mcg/kg/min .[id number] JESSY 4.3 mls/hr Titration Protocol 10 MCG/KG/MIN Metoclopramide HCl 5 mg 02/10/23 09:00 02/12/23 08:31 Metoclopramide Hcl Inj 5 Mg/Ml 2 Ml Vial IV 03/12/23 08:59 5 mg DAILY EJSSY Administration Propofol 20 mg 02/10/23 21:25 02/13/23 02:49 Propofol Bolus From Bag IV 02/13/23 21:24 20 mg Q5M PRN Administration Sedation Sterile Water 30 ml 02/09/23 15:45 02/13/23 04:33 Tube Feeding Water Flush OG 03/11/23 15:44 Not Given Q4H JESSY NPO Last Intake of Fluids Comment: tube feedings stopped Last Intake of Solids Comment: tube feedings stopped Past Medical History Medical History Anxiety Borderline personality disorder Chronic back pain Clinical depression 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 Ovarian cyst Pulmonary embolism (08/15/12) B/L (2010); diagnosed with Factor V Leiden- on warfarin Exercise / Class Metabolic Activity III < 4 Walking/Shop/Light housework Past Family History Family History Father Myotonic muscular dystrophy Grandfather (Paternal) Myotonic muscular dystrophy Brother Myotonic muscular dystrophy Grandmother (Paternal) Myotonic muscular dystrophy Other Cancer Hypertension Past Surgical History Surgical History H/O exploratory laparotomy + OVARIAN CYST REMOVAL; Exploratory lap: 01/15/17: Grade view 1, MAC#3, ETT 7.0 + TAP block at [facility] History of adenoidectomy History of blepharoplasty x2 History of cataract surgery History of cholecystectomy History of cystoscopy History of esophagogastroduodenoscopy (EGD) History of tonsillectomy Hx of lumpectomy RIGHT Slow to wake up after anesthesia Past Anesthesia History No Hx of Anesthesia Complications and No Family Hx of Anesthesia Complications History of PONV No Hx of PONV and No Hx of Motion Sickness Social History Smoking Status: Never smoker Do You Dip or Chew Tobacco: No Hx Alcohol Use: Yes Alcohol type: wine alcohol intake frequency: holidays/special occasions only Alcohol Intake Frequency Comment: unknown Hx Substance Use: Yes substance use type: does not use Substance Use Type Other:: recent medical marijuana card - made THC cookies according to ER record Physical Exam Vital Signs Last Vital Signs Temp 36.9 C 02/13/23 06:31 Pulse 85 02/13/23 06:31 Resp 14 02/13/23 06:31 BP 116/73 02/13/23 06:31 Pulse Ox 97 02/13/23 06:31 O2 Del Method Room Air 02/13/23 06:31 O2 Flow Rate 15 02/06/23 17:46 FiO2 40 02/13/23 04:17 Testing Laboratory Results 02/13/23 04:27 02/13/23 04:27 PT 10.9 Seconds (9.0-12.0) 02/06/23 18:48 INR 1.0 (0.9-1.1) 02/06/23 18:48 APTT 23.6 Seconds (21.0-31.0) 02/13/23 04:27 Hemoglobin A1c 5.7 % (4.5-5.6) H 02/06/23 20:23 Urine Color Yellow 02/06/23 18:00 Urine Appearance Clear (Clear) 02/06/23 18:00 Urine pH 6.0 (4.5-7.5) 02/06/23 18:00 Ur Specific [place] 1.023 (1.000-1.030) 02/06/23 18:00 Urine Protein Negative (Negative) 02/06/23 18:00 Urine Glucose (UA) Negative (Negative) 02/06/23 18:00 Urine Ketones Negative (Negative) 02/06/23 18:00 Urine Nitrite Negative (Negative) 02/06/23 18:00 Ur Leukocyte Esterase Negative (Negative) 02/06/23 18:00 Blood Type A Positive 02/06/23 17:46 Antibody Screen NEGATIVE 02/06/23 17:46 02/08/23 05:12 Aerobic Blood Culture - Final Blood No growth in Aerobic bottle after 5 days. Anaerobic Blood Culture - Final No growth in Anaerobic bottle after 5 days. 02/08/23 05:12 Aerobic Blood Culture - Final Blood No growth in Aerobic bottle after 5 days. Anaerobic Blood Culture - Final 02/06/23 18:48 Aerobic Blood Culture - Final Blood No growth in Aerobic bottle after 5 days. Anaerobic Blood Culture - Preliminary Staphylococcus species 02/06/23 17:46 Aerobic Blood Culture - Preliminary Blood Coag neg staph not lugdunensis Anaerobic Blood Culture - Final No growth in Anaerobic bottle after 5 days. 02/08/23 Unknown Gram Stain - Final Ba Lavage,Left Lower Lobe Bronchial Culture - Final Angelita albicans/dubliniensis 02/08/23 05:05 Gram Stain - Final Sputum,Vent Suction Sputum Culture - Final Angelita albicans/dubliniensis 02/08/23 Unknown Acid Fast Bacilli Smear - Final Bronch Wash,Left Lower Lobe 02/06/23 20:55 Gram Stain - Final Sputum,Vent Suction Sputum Culture - Final Moderate normal jose. 02/08/23 Unknown Fungal Smear - Final Bronch Wash,Left Lower Lobe 02/13/23 02/13/23 06:12 00:46 POC Glucose 89 100 H 02/13/23 06:30 POC Ur Test NEG Electrocardiogram Date: 02/06/23 Findings: + NSST changes and + ST @ (@ 114) Chest X-Ray Date: 02/12/23 Findings: + infiltrate (multifocal airspace opacities) Echocardiogram Date: 02/08/23 EF: 55% LV Function: normal RWMA: + none Valvular Disease: + no significant valvular disease
[2023-02-13] MEDS ORDERED: fentaNYL citrate PF 100 MCG/2 ML VIAL ONE ×2 (07:07→08:14)
[2023-02-13] MEDS ORDERED: MIDAZOLAM HCL 1 MG/ML 2ML VIAL ONE (07:08)
[2023-02-13] MEDS ORDERED: LIDOCAINE 1%/EPINEPHRINE 1:100,000 20 ML VIAL ONE (07:11)
--- NOTE | 2023-02-13 07:13 | History & Physical Bridge Note ---
Date of Service February 13, 2023 History & Physical Bridge Note I have examined the patient, reviewed the History & Physical and in the interval since the performance of the History & Physical I have noted the following changes of clinical significance: no changes noted
[2023-02-13] MEDS ORDERED: KETAMINE 50 MG/5 ML SYRINGE ONE (07:33)
--- NOTE | 2023-02-13 07:44 | XRay Report ---
XR chest 1V portable CLINICAL HISTORY: evaluate ETT placement and lung babin COMPARISON STUDY: Chest radiograph February 12, 2023. Chest CT February 07, 2023. FINDINGS: Tip of endotracheal tube is 2.1 cm above the bernadette. Tip of nasogastric tube is below the l ower aspect of this image but at least within the body of the stomach. No pneumothorax is present. Cardenas spected trace bilateral pleural effusions are noted. Multifocal airspace opacities persist. These are stable to slightly increased since prior exam. IMPRESSION: 1. Satisfactory positioning of the endotracheal and nasogastric tubes. 2. Stable to slight increase in multifocal airspace opacities. ACT 112: Negative or not required by law. Electronically signed by: Eulogio Moya M.D. 02/13/2023 7:43 AM
[2023-02-13] MEDS ORDERED: POTASSIUM PHOS 3 MMOL/1 ML INFUSION IV STA (07:45)
[2023-02-13] MEDS ORDERED: PHENYLEPHRINE HCL 10 MG/ML VIAL ONE (07:58)
[2023-02-13] MEDS ORDERED: PROPOFOL IV EMULSION 10 MG/ML 20 ML VIAL IV ONE (07:58)
[2023-02-13] MEDS ORDERED: POTASSIUM PHOSPHATE 40 MMOL in SODIUM CHLORIDE 0.9% 1000ML 1,000 ML IV ONE (08:00)
[2023-02-13] MEDS ORDERED: ePHEDrine sulfate 50 MG/ML AMP IV PRN (08:20)
[2023-02-13] MEDS ORDERED: ATROPINE SULFATE 0.1 MG/ML 10ML SYR IV PRN (08:20)
--- NOTE | 2023-02-13 09:06 | Critical Care Progress Note ---
Date of Service February 13, 2023 Assessment & Plan (1) Thrombocytopenia: (2) Hypercoagulable state: (3) Acute hypoxemic respiratory failure: (4) Respiratory failure: (5) Aspiration pneumonia: (6) Supratherapeutic INR: (7) Pulmonary embolism: (8) Myotonic muscular dystrophy: (9) Anxiety: (10) Chronic back pain: Plan Reason Critically Ill: 47-year-old female presents to the ICU for acute hypoxic respiratory failure following an aspiration event after the patient had ingested marijuana edibles, now requiring mechanical ventilation. Neuro - -- Acute metabolic encephalopathy - History of marijuana edible use, reported as possible recent overdose - D/W denies recent depressive episodes, no verbalized intent to harm -- Anxiety/depression/Borderline personality disorder continue home medications once patient is extubated and taking p.o. - Additional Hx from , prior mental health hospitalizations which were voluntary in nature. -He does not believe there was ever overdose however he did report if there was it was secondary with melatonin --Small fiber neuropathy/Myotonic muscular dystrophy -Follows with Nat --Chronic coccygeal pain - reports patient treats by consumption of THC tar which she bakes into cookies and consumed multiple cookies -Dosing strategy unclear Cardiac - Hisory PFO -Echocardiogram with bubble study: Reported as limited bubble study, no evidence of right to left shunting History of orthostatic hypotension -Midodrine not listed as active per outpatient medication reconciliation Respiratory - -- VDRF secondary to acute hypoxic respiratory failure sec to multilobar pneumonia with Aspiration -Status post bronchoscopy 02/08/2023 RSV, influenza A/B negative Trial of extubation 02/11/2023 which the patient unfortunately failed. Reintubated 02/11/2023 Patient will need tracheostomy and PEG tube For tracheostomy 02/13/2023 -- History pulmonary embolism: Stable -Factor V Leiden mutation & chronic immobility secondary to myotonic muscular dystrophy -CTA does not demonstrate PE - anticoagulation with heparin - reports chronic systemic anticoagulation -No clear indication as to why subtherapeutic (non-compliance?) GI - Dysphagia - reports prior attempts at feeding tube placement, this was discontinued -Would consider reevaluation as patient had recurrent aspiration events since last attempted PEG placement, possible GI consult Thursday Transaminitis Trending down -Unclear etiology, this appears to be occasionally recurrent Hepatitis panel negative Gastroparesis Takes metoclopramide at home Will give IV metoclopramide while in the hospital - Worthy -Urinalysis unremarkable, test negative ENDO - Continue with ICU hypoglycemia protocol HEME - Subtherapeutic anticoagulation -Continue heparin infusion until evaluation by GI/surgery for possible PEG tube Chronic thrombocytopenia: stable ID - Febrile illness Staphylococcal growth in blood culture 1 of 2 bottles --> likely contaminant -Repeat blood cultures 02/08/2023 have been negative to date Presumptive aspiration pneumonia -S/p bronchoscopy 02/08/2023 -Rocephin changed to Zosyn --Prophylaxis VTE: Heparin drip GI: Pepcid Lines: Peripheral Diet: Resume tube feeds Plan: In/out: -274, urine output 2100 mL Chest x-ray does not show any significant change compared to before. Phosphorus and potassium being replaced. 40 mg of Lasix given to the patient. Repeat BMP later today Heparin drip is on hold right now for tracheostomy placement today Start the patient on fentanyl post tracheostomy and titrate off propofol Patient's Gunner [phone] I have personally spent 37 minutes of critical care time in the direct management of this patient. This is a life/limb threatening event. This includes time spent evaluating patient, direct bedside care, chart review, placing orders, interpretation of diagnostic studies, discussion with consultants, patient, and family members, as well as other required patient management activities. This time is exclusive of all separately billable procedures, and teaching time and separate from and in addition to any other critical care service time. Admission and Anticipated Discharge Date Admission Date: February 06, 2023 Subjective Patient seen and examined at bedside. No acute distress, no adverse events overnight. She is going for trach placement today Spiking low-grade fevers Tube feeds has been out since 9 PM, heparin drip is also on hold Review of Systems Review of Systems: All systems reviewed & are unremarkable except as noted in Subjective Physical Exam Physical Exam: Constitutional: No acute distress HEENT: PERRLA Respiratory system: Decreased air entry bilaterally, no wheeze, no rhonchi, positive crackles bilaterally CVS: S1-S2 positive, no murmurs or gallops Abdomen: Soft, nontender, nondistended, positive bowel sounds x4 Extremities: +2 pulses bilaterally radialis/ dorsalis pedis, no cyanosis, no e marina Neuro: RASS -1, moving all her extremities Psych: Unable to assess G/U: Positive Worthy Skin: no rashes, warm and dry Lymphatic: no cervical or axillary lymphadenopathy Results & Data Results & Data Vital Signs (Past 12 Hours) Vital Signs Temp Pulse Pulse Resp BP BP Pulse Ox 02/13/23 07:00 02/13/23 07:00 02/13/23 07:00 95 H 02/13/23 06:31 36.9 C 85 14 116/73 97 02/13/23 05:00 95 H 17 96 02/13/23 05:00 121/71 02/13/23 04:45 88 14 96 02/13/23 04:30 95 H 14 94 02/13/23 04:15 17.8 C L 99 H 15 02/13/23 04:00 20.3 C L 109 H 19 78 L 02/13/23 04:00 107/87 02/13/23 03:45 36.8 C 107 H 16 02/13/23 03:30 36.4 C L 110 H 15 96 02/13/23 03:15 37.0 C 98 H 16 97 02/13/23 03:00 37.1 C 104 H 15 95 02/13/23 03:00 112/80 02/13/23 02:45 37.4 C 107 H 15 90 02/13/23 02:30 37.4 C 99 H 17 100 02/13/23 02:15 37.5 C 102 H 15 92 02/13/23 02:00 37.6 C H 100 H 14 94 02/13/23 02:00 111/80 02/13/23 01:45 37.7 C H 110 H 14 86 L 02/13/23 01:30 38.0 C H 101 H 15 93 02/13/23 01:15 38.0 C H 82 12 96 02/13/23 01:00 37.9 C H 81 12 94 02/13/23 01:00 99/71 L 02/13/23 00:45 37.9 C H 90 14 94 02/13/23 00:30 38.0 C H 105 H 16 91 02/13/23 00:15 38.1 C H 102 H 14 96 02/13/23 00:00 38.1 C H 104 H 17 93 02/13/23 00:00 103/85 02/12/23 23:45 38.1 C H 101 H 17 92 02/12/23 23:30 38.2 C H 107 H 16 93 02/12/23 23:15 38.1 C H 98 H 17 96 02/12/23 23:00 38.0 C H 98 H 14 95 02/12/23 22:45 37.9 C H 104 H 14 94 02/12/23 22:30 37.9 C H 102 H 14 94 02/12/23 22:15 37.8 C H 98 H 14 94 02/12/23 22:00 37.7 C H 100 H 14 95 02/12/23 22:00 120/93 02/12/23 21:45 37.7 C H 101 H 17 93 02/12/23 21:30 37.8 C H 94 H 15 81 L 02/12/23 21:15 37.7 C H 102 H 18 100 02/13/23 04:00 02/13/23 00:00 02/13/23 00:00 104 H 02/13/23 04:17 16 02/12/23 23:40 97 H 14 96 O2 Del Method FiO2 02/13/23 07:00 Mechanical Vent 02/13/23 07:00 40 02/13/23 07:00 02/13/23 06:31 Room Air 02/13/23 05:00 02/13/23 05:00 02/13/23 04:45 02/13/23 04:30 02/13/23 04:15 02/13/23 04:00 02/13/23 04:00 02/13/23 03:45 02/13/23 03:30 02/13/23 03:15 02/13/23 03:00 02/13/23 03:00 02/13/23 02:45 02/13/23 02:30 02/13/23 02:15 02/13/23 02:00 02/13/23 02:00 02/13/23 01:45 02/13/23 01:30 02/13/23 01:15 02/13/23 01:00 02/13/23 01:00 02/13/23 00:45 02/13/23 00:30 02/13/23 00:15 02/13/23 00:00 02/13/23 00:00 02/12/23 23:45 02/12/23 23:30 02/12/23 23:15 02/12/23 23:00 02/12/23 22:45 02/12/23 22:30 02/12/23 22:15 02/12/23 22:00 02/12/23 22:00 02/12/23 21:45 02/12/23 21:30 02/12/23 21:15 02/13/23 04:00 40 02/13/23 00:00 40 02/13/23 00:00 02/13/23 04:17 40 02/12/23 23:40 40 Laboratory Results 02/13/23 04:27 02/13/23 04:27 Coding Level of Care Code 68231 CRITICAL CARE 1ST 30-74M Diagnoses Thrombocytopenia D69.6 Hypercoagulable state D68.59 Acute hypoxemic respiratory failure J96.01 Respiratory failure J96.01 Chronicity: acute Respiratory failure complication: hypoxia Aspiration pneumonia J69.0 Aspiration pneumonia type: unspecified Laterality: bilateral Lung location: unspecified part of lung Supratherapeutic INR R79.1 Pulmonary embolism I26.99 Myotonic muscular dystrophy G71.11 Anxiety F41.9 Chronic back pain M54.9; G89.29 Time Spent (min) 37 (4) Respiratory failure Chronicity: acute Respiratory failure complication: hypoxia Qualified Code(s): J96.01 - Acute respiratory failure with hypoxia (5) Aspiration pneumonia Aspiration pneumonia type: unspecified Laterality: bilateral Lung location: unspecified part of lung Qualified Code(s): J69.0 - Pneumonitis due to inhalation of food and vomit
[2023-02-13] MEDS: METOCLOPRAMIDE HCL INJ 5 MG/ML 2 ML VIAL IV SCH ×2 (09:20→21:08)
[2023-02-13] MEDS: FAMOTIDINE 20 MG in SYRINGE 3 ML IV SCH ×2 (09:22→21:09)
[2023-02-13] MEDS ORDERED: FUROSEMIDE 40 MG/4 ML VIAL IV ONE (09:38)
--- NOTE | 2023-02-13 09:44 | Anesthesiology Progress Note ---
Date of Service February 13, 2023 Anesthesia Post Procedure Vital Signs Vital Signs: Temp Pulse Pulse Resp BP BP Pulse Ox 02/13/23 09:10 89 14 94 02/13/23 09:10 105/76 02/13/23 09:05 112/87 02/13/23 09:05 91 H 14 95 02/13/23 09:00 96 H 12 94 02/13/23 09:00 120/80 02/13/23 08:55 135/103 H 02/13/23 08:55 131 H 13 97 02/13/23 08:51 95 H 12 90 02/13/23 08:51 123/72 02/13/23 08:45 98 H 18 88 L 02/13/23 08:45 145/101 H 02/13/23 08:42 118/85 02/13/23 08:42 90 12 91 02/13/23 08:40 102 H 15 92 02/13/23 09:04 90 15 97 02/13/23 07:00 02/13/23 07:00 02/13/23 07:00 95 H 02/13/23 06:31 36.9 C 85 14 116/73 97 02/13/23 05:00 95 H 17 96 02/13/23 05:00 121/71 02/13/23 04:45 88 14 96 02/13/23 04:30 95 H 14 94 02/13/23 04:15 17.8 C L 99 H 15 02/13/23 04:00 20.3 C L 109 H 19 78 L 02/13/23 04:00 107/87 02/13/23 03:45 36.8 C 107 H 16 02/13/23 03:30 36.4 C L 110 H 15 96 02/13/23 03:15 37.0 C 98 H 16 97 02/13/23 03:00 37.1 C 104 H 15 95 02/13/23 03:00 112/80 02/13/23 02:45 37.4 C 107 H 15 90 02/13/23 02:30 37.4 C 99 H 17 100 02/13/23 02:15 37.5 C 102 H 15 92 02/13/23 02:00 37.6 C H 100 H 14 94 02/13/23 02:00 111/80 02/13/23 01:45 37.7 C H 110 H 14 86 L 02/13/23 01:30 38.0 C H 101 H 15 93 02/13/23 01:15 38.0 C H 82 12 96 02/13/23 01:00 37.9 C H 81 12 94 02/13/23 01:00 99/71 L 02/13/23 00:45 37.9 C H 90 14 94 02/13/23 00:30 38.0 C H 105 H 16 91 02/13/23 00:15 38.1 C H 102 H 14 96 02/13/23 00:00 38.1 C H 104 H 17 93 02/13/23 00:00 103/85 02/12/23 23:45 38.1 C H 101 H 17 92 02/12/23 23:30 38.2 C H 107 H 16 93 02/12/23 23:15 38.1 C H 98 H 17 96 02/12/23 23:00 38.0 C H 98 H 14 95 02/12/23 22:45 37.9 C H 104 H 14 94 02/12/23 22:30 37.9 C H 102 H 14 94 02/12/23 22:15 37.8 C H 98 H 14 94 02/12/23 22:00 37.7 C H 100 H 14 95 02/12/23 22:00 120/93 02/12/23 21:45 37.7 C H 101 H 17 93 02/12/23 21:30 37.8 C H 94 H 15 81 L 02/12/23 21:15 37.7 C H 102 H 18 100 02/12/23 21:00 37.7 C H 106 H 13 98 02/12/23 21:00 132/93 02/12/23 20:45 37.8 C H 103 H 3 L 02/12/23 20:30 37.9 C H 112 H 16 86 L 02/12/23 20:15 38.0 C H 102 H 14 97 02/12/23 20:10 38.0 C H 103 H 15 93 02/12/23 20:10 115/75 02/12/23 20:00 38.0 C H 16 100 02/12/23 19:45 37.8 C H 99 H 22 97 02/12/23 19:30 37.7 C H 107 H 22 95 05/11/23 19:30 138/76 02/12/23 20:00 02/13/23 04:00 02/13/23 00:00 02/13/23 00:00 104 H 02/12/23 20:00 02/13/23 04:17 16 02/12/23 23:40 97 H 14 96 02/12/23 20:32 111 H 24 96 02/12/23 15:06 102 H 16 94 02/12/23 18:00 37.7 C H 102 H 17 92 02/12/23 18:00 114/81 02/12/23 17:31 37.2 C 105 H 18 91 02/12/23 17:31 123/78 02/12/23 17:01 37.3 C 90 15 93 02/12/23 17:00 109/70 02/12/23 16:59 37.3 C 90 16 93 02/12/23 16:30 37.3 C 86 14 94 02/12/23 16:30 101/65 02/12/23 16:00 02/12/23 16:00 37.4 C 97 H 14 100 02/12/23 16:00 128/76 02/12/23 15:30 37.5 C 99 H 14 95 02/12/23 15:30 124/82 02/12/23 15:00 37.4 C 84 15 96 02/12/23 15:00 107/71 02/12/23 14:30 37.4 C 79 14 96 02/12/23 14:30 99/67 L 02/12/23 14:00 37.4 C 86 15 97 02/12/23 14:00 100/66 02/12/23 13:30 99/63 L 02/12/23 13:30 37.4 C 85 97 02/12/23 13:00 37.4 C 91 H 14 99 02/12/23 13:00 94/66 L 02/12/23 12:30 37.4 C 82 14 98 02/12/23 12:30 99/58 L 02/12/23 12:00 37.4 C 87 14 97 02/12/23 12:00 96/77 L 02/12/23 11:30 37.3 C 81 12 94 02/12/23 11:30 92/66 L 02/12/23 16:00 106 H 02/12/23 12:00 02/12/23 11:37 74 15 96 02/12/23 11:00 37.2 C 74 12 94 02/12/23 11:00 90/60 L 02/12/23 10:30 37.3 C 80 12 93 02/12/23 10:30 87/57 L 02/12/23 10:00 37.4 C 78 12 94 02/12/23 10:00 107/63 O2 Del Method FiO2 02/13/23 09:10 02/13/23 09:10 02/13/23 09:05 02/13/23 09:05 Mechanical Vent 50 02/13/23 09:00 Mechanical Vent 50 02/13/23 09:00 02/13/23 08:55 02/13/23 08:55 60 02/13/23 08:51 Mechanical Vent 60 02/13/23 08:51 02/13/23 08:45 Mechanical Vent 40 02/13/23 08:45 02/13/23 08:42 02/13/23 08:42 Ambu-Bag 100 02/13/23 08:40 Ambu-Bag 100 02/13/23 09:04 60 02/13/23 07:00 Mechanical Vent 02/13/23 07:00 40 02/13/23 07:00 02/13/23 06:31 Room Air 02/13/23 05:00 02/13/23 05:00 02/13/23 04:45 02/13/23 04:30 02/13/23 04:15 02/13/23 04:00 02/13/23 04:00 02/13/23 03:45 02/13/23 03:30 02/13/23 03:15 02/13/23 03:00 02/13/23 03:00 02/13/23 02:45 02/13/23 02:30 02/13/23 02:15 02/13/23 02:00 02/13/23 02:00 02/13/23 01:45 02/13/23 01:30 02/13/23 01:15 02/13/23 01:00 02/13/23 01:00 02/13/23 00:45 02/13/23 00:30 02/13/23 00:15 02/13/23 00:00 02/13/23 00:00 02/12/23 23:45 02/12/23 23:30 02/12/23 23:15 02/12/23 23:00 02/12/23 22:45 02/12/23 22:30 02/12/23 22:15 02/12/23 22:00 02/12/23 22:00 02/12/23 21:45 02/12/23 21:30 02/12/23 21:15 02/12/23 21:00 02/12/23 21:00 02/12/23 20:45 02/12/23 20:30 02/12/23 20:15 02/12/23 20:10 02/12/23 20:10 02/12/23 20:00 02/12/23 19:45 02/12/23 19:30 02/12/23 19:30 02/12/23 20:00 Mechanical Vent 02/13/23 04:00 40 02/13/23 00:00 40 02/13/23 00:00 02/12/23 20:00 40 02/13/23 04:17 40 02/12/23 23:40 40 02/12/23 20:32 40 02/12/23 15:06 40 02/12/23 18:00 02/12/23 18:00 02/12/23 17:31 02/12/23 17:31 02/12/23 17:01 02/12/23 17:00 02/12/23 16:59 02/12/23 16:30 02/12/23 16:30 02/12/23 16:00 40 02/12/23 16:00 02/12/23 16:00 02/12/23 15:30 Mechanical Vent 40 02/12/23 15:30 02/12/23 15:00 02/12/23 15:00 02/12/23 14:30 02/12/23 14:30 02/12/23 14:00 02/12/23 14:00 02/12/23 13:30 02/12/23 13:30 02/12/23 13:00 02/12/23 13:00 02/12/23 12:30 02/12/23 12:30 02/12/23 12:00 02/12/23 12:00 02/12/23 11:30 02/12/23 11:30 02/12/23 16:00 02/12/23 12:00 40 02/12/23 11:37 40 02/12/23 11:00 02/12/23 11:00 02/12/23 10:30 02/12/23 10:30 02/12/23 10:00 02/12/23 10:00 Transfer of Care Handoff Completed per policy Notes Mental Status: see notes below Patient Amnestic to Procedure: Yes Nausea / Vomiting: adequately controlled Pain: adequately controlled Airway Patency, RR, SpO2: stable & adequate BP & HR: stable & adequate Hydration State: stable & adequate Anesthetic Complications: no major complications apparent Notes: pt. sedated
--- NOTE | 2023-02-13 10:38 | Hospitalist Progress Note ---
Date of Service February 13, 2023 Assessment & Plan (1) Respiratory failure: Plan: Per previous hospitalist's notes with addendum: Acute hypoxic respiratory failure Secondary to aspiration pneumonia Recent consumption of marijuana cookies, hx IBS/gastroparesis -- Remains intubated, sedated --02/08: Status post bronchoscopy Fiberoptic bronchoscopy was performed via endotracheal tube. Bronchioalveolar lavage of the left lower lobe was performed. Findings included: Mucopurulent secretions suctioned predominantly from the left lower lobe. [place] appearance. No significant hyponatremia in the airways. 02/11 pt extubated and required re-intubation -> plan for trach, ENT consulted Still having low grade fever 02/13 S/p tracheostomy this AM Cont. to have low grade fever -- Blood cultures: 02/06/23 coag neg staph. x2 - possible contaminant ? -- Repeat blood cultx 02/08/23 - Negative so far Sputum culture: Angelita albicans Bronchial lavage left lower lobe cultures: Angelita albicans --Continue Zosyn IV May need coverage for fungal pneumonia? Management per ICU/pulmonary Tube feeding on hold for trach this AM. Will need PEG tube / G-J tube placed. Unsuccessful PEG tube placement in the past. Discussed this with GI. Hypercoagulable state (history PE, factor V Leiden mutation as per records) on Coumadin, INR subtherapeutic --Currently on heparin drip Hx orthostatic hypotension as per records, patient not currently on prior midodrine Rx --Monitor blood pressure Hx myotonic dystrophy Borderline personality disorder/anxiety/mood disorder History of traumatic brain injury Prediabetes, current hemoglobin A1c of 5.7 Transaminitis, possible fatty liver disease with note of hepatic change in outpatient CT abdomen pelvis October 2022 Hepatitis panel obtained and negative Chronic thrombocytopenia - cont. to monitor DVT prophylaxis. Heparin drip GI prophylaxis. Famotidine Full code Disposition: ICU Lives at home with her Admission and Anticipated Discharge Date Admission Date: February 06, 2023 Subjective Follow-up for acute hypoxic respiratory failure, aspiration pneumonia, etc. Pt awake yesterday during my exam, on mechanical ventilator Today she underwent tracheostomy, she is sedated ,on mech. vent. Still with low grade fever. Review of Systems Review of Systems: All systems reviewed & are unremarkable except as noted in Subjective Physical Exam Physical Exam: General - young F, sedated, s/p trach, on vent Lungs - + course breath sounds b/l Heart- normal rate, regular rhythm; no murmurs Abdomen- normal bowel sounds, nondistended, soft, + bowel sounds Extremities- no pretibial edema Neuro- sedated Skin- warm & dry Results & Data Results & Data Vital Signs (Past 12 Hours) Vital Signs Temp Pulse Pulse Resp BP BP Pulse Ox 02/13/23 10:15 91 H 14 97 02/13/23 10:15 100/77 02/13/23 10:00 93 H 14 96 02/13/23 10:00 104/81 02/13/23 09:46 110/73 02/13/23 09:46 107 H 14 95 02/13/23 09:45 102 H 14 94 02/13/23 09:30 108 H 19 94 02/13/23 09:25 95 H 14 93 02/13/23 09:25 133/77 02/13/23 09:20 107/75 02/13/23 09:20 88 14 94 02/13/23 09:15 87 12 94 02/13/23 09:15 119/80 02/13/23 09:00 02/13/23 09:00 89 02/13/23 09:10 89 14 94 02/13/23 09:10 105/76 02/13/23 09:05 112/87 02/13/23 09:05 91 H 14 95 02/13/23 09:00 96 H 12 94 02/13/23 09:00 120/80 02/13/23 08:55 135/103 H 02/13/23 08:55 131 H 13 97 02/13/23 08:51 95 H 12 90 02/13/23 08:51 123/72 02/13/23 08:45 98 H 18 88 L 02/13/23 08:45 145/101 H 02/13/23 08:42 118/85 02/13/23 08:42 90 12 91 02/13/23 08:40 102 H 15 92 02/13/23 09:04 90 15 97 02/13/23 07:00 02/13/23 07:00 02/13/23 07:00 95 H 02/13/23 06:31 36.9 C 85 14 116/73 97 02/13/23 05:00 95 H 17 96 02/13/23 05:00 121/71 05/12/23 04:45 88 14 96 02/13/23 04:30 95 H 14 94 02/13/23 04:15 17.8 C L 99 H 15 02/13/23 04:00 20.3 C L 109 H 19 78 L 02/13/23 04:00 107/87 02/13/23 03:45 36.8 C 107 H 16 02/13/23 03:30 36.4 C L 110 H 15 96 02/13/23 03:15 37.0 C 98 H 16 97 02/13/23 03:00 37.1 C 104 H 15 95 02/13/23 03:00 112/80 02/13/23 02:45 37.4 C 107 H 15 90 02/13/23 02:30 37.4 C 99 H 17 100 02/13/23 02:15 37.5 C 102 H 15 92 02/13/23 02:00 37.6 C H 100 H 14 94 02/13/23 02:00 111/80 02/13/23 01:45 37.7 C H 110 H 14 86 L 02/13/23 01:30 38.0 C H 101 H 15 93 02/13/23 01:15 38.0 C H 82 12 96 02/13/23 01:00 37.9 C H 81 12 94 02/13/23 01:00 99/71 L 02/13/23 00:45 37.9 C H 90 14 94 02/13/23 00:30 38.0 C H 105 H 16 91 02/13/23 00:15 38.1 C H 102 H 14 96 02/13/23 00:00 38.1 C H 104 H 17 93 02/13/23 00:00 103/85 02/12/23 23:45 38.1 C H 101 H 17 92 02/12/23 23:30 38.2 C H 107 H 16 93 02/12/23 23:15 38.1 C H 98 H 17 96 02/12/23 23:00 38.0 C H 98 H 14 95 02/12/23 22:45 37.9 C H 104 H 14 94 02/13/23 04:00 02/13/23 00:00 02/13/23 00:00 104 H 02/13/23 04:17 16 02/12/23 23:40 97 H 14 96 O2 Del Method FiO2 02/13/23 10:15 02/13/23 10:15 02/13/23 10:00 02/13/23 10:00 02/13/23 09:46 02/13/23 09:46 02/13/23 09:45 02/13/23 09:30 02/13/23 09:25 02/13/23 09:25 02/13/23 09:20 02/13/23 09:20 02/13/23 09:15 02/13/23 09:15 02/13/23 09:00 Mechanical Vent 02/13/23 09:00 02/13/23 09:10 02/13/23 09:10 02/13/23 09:05 02/13/23 09:05 Mechanical Vent 50 02/13/23 09:00 Mechanical Vent 50 02/13/23 09:00 02/13/23 08:55 02/13/23 08:55 60 02/13/23 08:51 Mechanical Vent 60 02/13/23 08:51 02/13/23 08:45 Mechanical Vent 40 02/13/23 08:45 02/13/23 08:42 02/13/23 08:42 Ambu-Bag 100 02/13/23 08:40 Ambu-Bag 100 02/13/23 09:04 60 02/13/23 07:00 Mechanical Vent 02/13/23 07:00 40 02/13/23 07:00 02/13/23 06:31 Room Air 02/13/23 05:00 02/13/23 05:00 02/13/23 04:45 02/13/23 04:30 02/13/23 04:15 02/13/23 04:00 02/13/23 04:00 02/13/23 03:45 02/13/23 03:30 02/13/23 03:15 02/13/23 03:00 02/13/23 03:00 02/13/23 02:45 02/13/23 02:30 02/13/23 02:15 02/13/23 02:00 02/13/23 02:00 02/13/23 01:45 02/13/23 01:30 02/13/23 01:15 02/13/23 01:00 02/13/23 01:00 02/13/23 00:45 02/13/23 00:30 02/13/23 00:15 02/13/23 00:00 02/13/23 00:00 02/12/23 23:45 02/12/23 23:30 02/12/23 23:15 02/12/23 23:00 02/12/23 22:45 02/13/23 04:00 40 02/13/23 00:00 40 02/13/23 00:00 02/13/23 04:17 40 02/12/23 23:40 40 Laboratory Results 02/13/23 02/13/23 02/13/23 Range/Units 06:30 06:12 04:27 WBC (4.8-10.8) K/ul RBC (4.20-5.40) M/uL Hgb (12.0-16.0) g/dl Hct (37.0-47.0) % MCV (80.0-100.0) fL MCH (25.0-34.0) pg MCHC (32.0-36.0) g/dL RDW Std Deviation (36.4-46.3) fL RDW Coeff of Ora (11.5-14.5) % Plt Count (130-400) K/uL MPV (9.4-12.4) fL Immature Gran % (Auto) % Neut % (Auto) % Lymph % (Auto) % Yancey % (Auto) % Eos % (Auto) % Baso % (Auto) % Neut # (Auto) (1.40-6.50) K/uL Lymph # (Auto) (1.2-3.4) K/uL Yancey # (Auto) (0.11-0.59) K/uL Eos # (Auto) (0-0.50) K/uL Baso # (Auto) (0-0.2) K/uL Immature Gran # (Auto) (0.01-0.20) K/uL APTT (21.0-31.0) Seconds PTT Ratio Sodium 140 (136-145) mmol/L Potassium 3.6 (3.5-5.1) mmol/L Chloride 101 (98-107) mmol/L Carbon Dioxide 28 (21-32) mmol/L Anion Gap 11 (3-11) BUN 7 (6-23) mg/dl Creatinine 0.63 (0.6-1.2) mg/dl Est Cr Clr Drug Dosing 94.2 ml/min Est GFR ( Amer) 125.6 ml/min Est GFR (Non-Af Amer) 108.3 ml/min BUN/Creatinine Ratio 11.1 (10-20) Glucose 99 (70-99(Fasting)) mg/dl POC Glucose 89 (70-99) mg/dl Calcium 9.9 (8.6-10.3) mg/dl Phosphorus 2.2 L D (2.5-4.9) mg/dl Magnesium 2.5 H (1.7-2.4) mg/dl POC Ur Test NEG (NEG) 02/13/23 02/13/23 02/13/23 Range/Units 04:27 04:27 00:46 WBC 5.11 (4.8-10.8) K/ul RBC 3.97 L (4.20-5.40) M/uL Hgb 11.9 L (12.0-16.0) g/dl Hct 36.0 L (37.0-47.0) % MCV 90.7 (80.0-100.0) fL MCH 30.0 (25.0-34.0) pg MCHC 33.1 (32.0-36.0) g/dL RDW Std Deviation 51.8 H (36.4-46.3) fL RDW Coeff of Ora 15.6 H (11.5-14.5) % Plt Count 157 (130-400) K/uL MPV 11.5 (9.4-12.4) fL Immature Gran % (Auto) 3.7 % Neut % (Auto) 63.4 % Lymph % (Auto) 20.4 % Yancey % (Auto) 8.2 % Eos % (Auto) 3.7 % Baso % (Auto) 0.6 % Neut # (Auto) 3.24 (1.40-6.50) K/uL Lymph # (Auto) 1.04 L (1.2-3.4) K/uL Yancey # (Auto) 0.42 (0.11-0.59) K/uL Eos # (Auto) 0.19 (0-0.50) K/uL Baso # (Auto) 0.03 (0-0.2) K/uL Immature Gran # (Auto) 0.19 (0.01-0.20) K/uL APTT 23.6 (21.0-31.0) Seconds PTT Ratio 0.8 Sodium (136-145) mmol/L Potassium (3.5-5.1) mmol/L Chloride (98-107) mmol/L Carbon Dioxide (21-32) mmol/L Anion Gap (3-11) BUN (6-23) mg/dl Creatinine (0.6-1.2) mg/dl Est Cr Clr Drug Dosing ml/min Est GFR ( Amer) ml/min Est GFR (Non-Af Amer) ml/min BUN/Creatinine Ratio (10-20) Glucose (70-99(Fasting)) mg/dl POC Glucose 100 H (70-99) mg/dl Calcium (8.6-10.3) mg/dl Phosphorus (2.5-4.9) mg/dl Magnesium (1.7-2.4) mg/dl POC Ur Test (NEG) 02/12/23 02/12/23 Range/Units 15:14 12:20 WBC (4.8-10.8) K/ul RBC (4.20-5.40) M/uL Hgb (12.0-16.0) g/dl Hct (37.0-47.0) % MCV (80.0-100.0) fL MCH (25.0-34.0) pg MCHC (32.0-36.0) g/dL RDW Std Deviation (36.4-46.3) fL RDW Coeff of Ora (11.5-14.5) % Plt Count (130-400) K/uL MPV (9.4-12.4) fL Immature Gran % (Auto) % Neut % (Auto) % Lymph % (Auto) % Yancey % (Auto) % Eos % (Auto) % Baso % (Auto) % Neut # (Auto) (1.40-6.50) K/uL Lymph # (Auto) (1.2-3.4) K/uL Yancey # (Auto) (0.11-0.59) K/uL Eos # (Auto) (0-0.50) K/uL Baso # (Auto) (0-0.2) K/uL Immature Gran # (Auto) (0.01-0.20) K/uL APTT 41.2 H* (21.0-31.0) Seconds PTT Ratio 1.5 Sodium 141 (136-145) mmol/L Potassium 3.8 (3.5-5.1) mmol/L Chloride 104 (98-107) mmol/L Carbon Dioxide 25 (21-32) mmol/L Anion Gap 12 H (3-11) BUN 8 (6-23) mg/dl Creatinine 0.67 (0.6-1.2) mg/dl Est Cr Clr Drug Dosing 88.6 ml/min Est GFR ( Amer) 123.0 ml/min Est GFR (Non-Af Amer) 106.2 ml/min BUN/Creatinine Ratio 11.9 (10-20) Glucose 103 H (70-99(Fasting)) mg/dl POC Glucose (70-99) mg/dl Calcium 8.6 (8.6-10.3) mg/dl Phosphorus 4.7 D (2.5-4.9) mg/dl Magnesium (1.7-2.4) mg/dl POC Ur Test (NEG) Medications Administered Current Inpatient Medications Atropine Sulfate (Atropine Sulfate 0.1 Mg/Ml 10ml Syr) 0.5 mg IV Q1M PRN PRN Reason: PACU Use-HR<40 &/or Bradycardi Stop: 02/13/23 16:20 Ephedrine Sulfate (Ephedrine Sulfate 50 Mg/Ml Amp) 5 mg IV Q5M PRN PRN Reason: PACU Use Only-SBP<90 mmHg Stop: 02/13/23 16:20 Fentanyl Citrate (Fentanyl Citrate Pf 100 Mcg/2 Ml Vial) 50 mcg IV Q4H PRN PRN Reason: Pain or Agitation Stop: 02/22/23 00:02 Last Admin: 02/13/23 10:16 Dose: 50 mcg Promethazine HCl 12.5 mg/ (Sodium Chloride) 50.5 mls @ 202 mls/hr IV Q6H PRN PRN Reason: Nausea And Vomiting Stop: 03/08/23 20:35 Last Infusion: 02/09/23 05:10 Dose: Infused Heparin Sodium/Dextrose (Heparin Sodium/Dextrose) 25,000 units in 500 mls @ 0 mls/hr IV .Q0M JESSY; Protocol Stop: 03/08/23 22:29 Last Titration: 02/13/23 07:15 Dose: 0 units/hr, 0 mls/hr Famotidine 20 mg/ Syringe 5 mls @ 2.5 mls/min IV Q12 JESSY Stop: 03/08/23 22:24 Last Admin: 02/13/23 09:22 Dose: 2.5 mls/min Piperacillin Sod/Tazobactam (Sod 4.5 gm/ Dextrose) 120 mls @ 30 mls/hr IV Q8H JESSY; Protocol Stop: 02/15/23 15:59 Last Admin: 02/13/23 09:20 Dose: 30 mls/hr Propofol (Diprivan) 1,000 mg in 100 mls @ 4.254 mls/hr IV .[id number] [facility]; Protocol Stop: 02/13/23 21:29 Last Titration: 02/13/23 10:09 Dose: 10 mcg/kg/min, 4.3 mls/hr Potassium Phosphate 40 mmol/ (Sodium Chloride) 1,013.3333 mls @ 140 mls/hr IV ONE ONE Stop: 02/13/23 15:14 Last Admin: 02/13/23 09:21 Dose: 140 mls/hr Metoclopramide HCl (Metoclopramide Hcl Inj 5 Mg/Ml 2 Ml Vial) 5 mg IV DAILY [facility] Stop: 03/12/23 08:59 Last Admin: 02/13/23 09:20 Dose: 5 mg Propofol (Propofol Bolus From Bag) 20 mg IV Q5M PRN PRN Reason: Sedation Stop: 02/13/23 21:24 Last Admin: 02/13/23 02:49 Dose: 20 mg Sterile Water (Tube Feeding Water Flush) 30 ml OG Q4H [facility] Stop: 03/11/23 15:44 Last Admin: 02/13/23 09:03 Dose: Not Given (1) Respiratory failure Chronicity: acute Respiratory failure complication: hypoxia Qualified C ode(s): J96.01 - Acute respiratory failure with hypoxia
--- NOTE | 2023-02-13 11:39 | XRay Report ---
KUB CLINICAL HISTORY: Status post trach and feeding tube placement. COMPARISON STUDY: CT of the abdomen and pelvis February 06, 2023. Chest radiograph performed earlier today . FINDINGS: Tracheostomy tube is noted. Bilateral airspace opacities within the lungs are present. Ther e are cholecystectomy clips. The tip of the feeding tube projects over the second portion of the duod enum. IMPRESSION: 1. Tip of feeding tube projects over the second portion of the duodenum. 2. Interval tracheostomy. 3. Redemonstration of bilateral airspace opacities. ACT 112: Negative or not required by law. Electronically signed by: Eulogio Moya M.D. 02/13/2023 11:38 AM
--- NOTE | 2023-02-13 13:48 | Operative Report ---
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 I marked out the incision between the cricoid and thyroid notch. I infiltrated with lidocaine with epinephrine. I made incision divided skin and subcutaneous tissues. I used the harmonic scalpel to divide the soft tissues down to the strap muscles. Palpation used to identify the trachea midline. I divided between the strap muscles and then elevated superiorly and inferiorly. I dissected down to the cricoid and then the trachea. The isthmus of the thyroid gland was over top of the trachea. I divided the isthmus using the harmonic scalpel. I exposed the second and third tracheal cartilages. I went between the cartilages and then divided the third tracheal cartilage. I opened into the trachea. I suctioned the mucus. The endotracheal tube was retracted just out of the way. A #6 Shiley cuffed tracheotomy tube was placed into the trachea. The retractors were removed. I sutured the tracheotomy tube in with 2-0 silk suture. The trach dressing and ties were applied. Patient tolerated procedure well. Less than 1 ML estimated blood loss. Patient tolerated procedure well and was transferred back to the ICU in excellent condition I attest to the content of the Intraoperative Record and any orders documented therein. Any exceptions are noted below.
[2023-02-13] MEDS ORDERED: PEPTAMEN INTENSE VHP 1.0 CAL 1,000 ML BAG OG SCH ×2 (20:45)
[2023-02-13 20:59] LABS: Blood Urea Nitrogen 9 mg/dl (6-23); Calcium 8.7 mg/dl (8.6-10.3); Carbon Dioxide 24 mmol/L (21-32); Chloride 105 mmol/L (98-107); Creatinine Clr Calc Pharmacy 98.9 ml/min; Est GFR (African American) 127.6 ml/min; Est GFR (Non-African American) 110.1 ml/min; Glucose 86 mg/dl (70-99(Fasting)); Phosphorus 4.8 mg/dl (2.5-4.9)
[2023-02-13] MEDS: HEPARIN SODIUM/DEXTROSE 25,000 UNITS/500 ML BAG IV SCH (21:09)
[2023-02-13] MEDS: PROMETHAZINE HCL 12.5 MG in SODIUM CHLORIDE 0.9% 50 ML IV PRN (22:40)
[2023-02-13 23:14] LABS: Partial Thromboplastin Ratio 0.8; Partial Thromboplastin Time 21.9 Seconds (21.0-31.0)
[2023-02-13 23:16] LABS: Magnesium 2.3 mg/dl (1.7-2.4); Potassium 3.4 mmol/L (3.5-5.1)
[2023-02-14] MEDS ORDERED: HEPARIN SOD (PORCINE) 1000 UNIT/ML IV ONE (00:15)
[2023-02-14] MEDS: HEPARIN SODIUM/DEXTROSE 25,000 UNITS/500 ML BAG IV SCH ×3 (00:28→22:25)
[2023-02-14] MEDS: POTASSIUM CHLORIDE / WTR 10 MEQ/100 ML PLCT IV SCH ×3 (00:30→03:49)
[2023-02-14] MEDS: PIPERACILLIN/TAZOBACTAM 4.5 GM in DEXTROSE 5% 100 ML IV SCH ×3 (01:10→17:50)
[2023-02-14] MEDS: fentaNYL citrate PF 100 MCG/2 ML VIAL IV PRN ×4 (02:18→22:55)
[2023-02-14] MEDS: TUBE FEEDING WATER FLUSH OG SCH ×5 (03:52→17:52)
[2023-02-14 06:27] LABS: Basophils # (auto) 0.02 K/uL (0-0.2); Basophils % (auto) 0.3 %; Eosinophils # (auto) 0.19 K/uL (0-0.50); Hematocrit (blood only) 33.6 % (37.0-47.0); Hemoglobin 11.2 g/dl (12.0-16.0); Immature Granulocytes # (auto) 0.09 K/uL (0.01-0.20); Immature Granulocytes % (auto) 1.4 %; Lymphocytes # (auto) 1.14 K/uL (1.2-3.4); Lymphocytes % (auto) 18.2 %; Mean Corpuscular Hemoglobin 30.5 pg (25.0-34.0); Mean Corpuscular Hgb Conc 33.3 g/dL (32.0-36.0); Mean Corpuscular Volume 91.6 fL (80.0-100.0); Mean Platelet Volume 11.8 fL (9.4-12.4); Monocytes # (auto) 0.34 K/uL (0.11-0.59); Monocytes % (auto) 5.4 %; Neutrophils # (auto) 4.47 K/uL (1.40-6.50); Neutrophils % (auto) 71.7 %; Platelet Count 154 K/uL (130-400); RDW Coefficient of Variation 15.7 % (11.5-14.5); RDW Standard Deviation 51.9 fL (36.4-46.3); Red Blood Count 3.67 M/uL (4.20-5.40); White Blood Count 6.25 K/ul (4.8-10.8)
[2023-02-14 06:41] LABS: BUN Creatinine Ratio 13.6 (10-20); Calcium 9.7 mg/dl (8.6-10.3); Creatinine Clr Calc Pharmacy 100.6 ml/min; Est GFR (African American) 128.3 ml/min; Est GFR (Non-African American) 110.7 ml/min; Magnesium 2.3 mg/dl (1.7-2.4); Potassium 4.1 mmol/L (3.5-5.1)
[2023-02-14 06:50] LABS: Partial Thromboplastin Ratio 2.1
[2023-02-14 06:51] LABS: Partial Thromboplastin Time 58.1 Seconds (21.0-31.0)
[2023-02-14] MEDS ORDERED: POTASSIUM PHOS 3 MMOL/1 ML INFUSION IV STA (07:46)
[2023-02-14] MEDS ORDERED: FUROSEMIDE 40 MG/4 ML VIAL IV ONE (07:47)
--- NOTE | 2023-02-14 07:51 | Critical Care Progress Note ---
Date of Service February 14, 2023 Assessment & Plan (1) Thrombocytopenia: (2) Hypercoagulable state: (3) Acute hypoxemic respiratory failure: (4) Respiratory failure: (5) Aspiration pneumonia: (6) Supratherapeutic INR: (7) Pulmonary embolism: (8) Myotonic muscular dystrophy: (9) Anxiety: (10) Chronic back pain: Plan Reason Critically Ill: 47-year-old female presents to the ICU for acute hypoxic respiratory failure following an aspiration event after the patient had ingested marijuana edibles, now requiring mechanical ventilation. Neuro - -- Acute metabolic encephalopathy --> improved - History of marijuana edible use, reported as possible recent overdose - D/W denies recent depressive episodes, no verbalized intent to harm -- Anxiety/depression/Borderline personality disorder continue home medications once patient is extubated and taking p.o. - Additional Hx from , prior mental health hospitalizations which were voluntary in nature. -He does not believe there was ever overdose however he did report if there was it was secondary with melatonin --Small fiber neuropathy/Myotonic muscular dystrophy -Follows with Nat --Chronic coccygeal pain - reports patient treats by consumption of THC tar which she bakes into cookies and consumed multiple cookies -Dosing strategy unclear Cardiac - Hisory PFO -Echocardiogram with bubble study: Reported as limited bubble study, no evidence of right to left shunting History of orthostatic hypotension -Midodrine not listed as active per outpatient medication reconciliation Respiratory - -- TDRF secondary to acute hypoxic respiratory failure sec to multilobar pneumonia with Aspiration -Status post bronchoscopy 02/08/2023 RSV, influenza A/B negative Trial of extubation 02/11/2023 which the patient unfortunately failed. Reintubated 02/11/2023 Patient will need J tube, unfortunately this hospital does not have the capacity to do it S/p tracheostomy 02/13/2023 -- History pulmonary embolism: Stable -Factor V Leiden mutation & chronic immobility secondary to myotonic muscular dystrophy -CTA does not demonstrate PE - anticoagulation with heparin - reports chronic systemic anticoagulation -No clear indication as to why subtherapeutic (non-compliance?) GI - Dysphagia - reports prior attempts at feeding tube placement, this was discontinued -Would consider reevaluation as patient had recurrent aspiration events since last attempted PEG placement, possible GI consult Thursday Transaminitis Trending down -Unclear etiology, this appears to be occasionally recurrent Hepatitis panel negative Gastroparesis Takes metoclopramide at home Will give IV metoclopramide while in the hospital - Worthy -Urinalysis unremarkable, test negative ENDO - Continue with ICU hypoglycemia protocol HEME - Subtherapeutic anticoagulation -Continue heparin infusion until evaluation by GI/surgery for possible PEG tube Chronic thrombocytopenia: stable ID - Febrile illness Staphylococcal growth in blood culture 1 of 2 bottles --> likely contaminant -Repeat blood cultures 02/08/2023 have been negative to date Presumptive aspiration pneumonia -S/p bronchoscopy 02/08/2023 -Rocephin changed to Zosyn --Prophylaxis VTE: Heparin drip GI: Pepcid Lines: Peripheral Diet: Resume tube feeds Plan: In/out: Positive 496, urine output 1707, +2 L since coming to the hospital Chest x-ray from today seems to show collapse of the left lower lobe. I will start the patient on hypertonic saline nebulized along with Perforomist. If there is no improvement then we will do bronchoscopy Phosphorus being replaced. 20 mg of Lasix given to the patient Patient's Gunner [phone] I have personally spent 38 minutes of critical care time in the direct management of this patient. This is a life/limb threatening event. This includes time spent evaluating patient, direct bedside care, chart review, placing orders, interpretation of diagnostic studies, discussion with consultants, patient, and family members, as well as other required patient management activities. This time is exclusive of all separately billable procedures, and teaching time and separate from and in addition to any other critical care service time. Admission and Anticipated Discharge Date Admission Date: February 06, 2023 Subjective Patient seen and examined at bedside. No acute distress. Patient is awake and following commands Denied any headache, no abdominal pain, no chest pain Review of Systems Review of Systems: All systems reviewed & are unremarkable except as noted in Subjective Physical Exam Physical Exam: Constitutional: No acute distress HEENT: PERRLA Respiratory system: Decreased air entry bilaterally, no wheeze, no rhonchi, positive crackles bilaterally CVS: S1-S2 positive, no murmurs or gallops tachycardia Abdomen: Soft, nontender, nondistended, positive bowel sounds x4 Extremities: +2 pulses bilaterally radialis/ dorsalis pedis, no cyanosis, no edema Neuro: Awake alert, following commands, moving all extremities Psych: Normal mood and affect G/U: Positive Worthy Skin: no rashes, warm and dry Lymphatic: no cervical or axillary lymphadenopathy Results & Data Results & Data Vital Signs (Past 12 Hours) Vital Signs Temp Pulse Resp BP Pulse Ox O2 Del Method FiO2 02/14/23 04:00 37 C 02/14/23 00:00 36.6 C 02/14/23 07:15 103 H 15 100 02/14/23 07:00 110 H 22 100 02/14/23 06:45 99 H 17 100 02/14/23 06:30 96 H 16 100 02/14/23 06:15 100 H 17 100 02/14/23 06:00 100 H 17 98 02/14/23 05:45 105 H 19 100 02/14/23 05:30 104 H 16 100 02/14/23 05:15 102 H 14 100 02/14/23 05:00 99 H 14 100 02/14/23 04:45 115 H 23 99 02/14/23 04:30 106 H 14 100 02/14/23 04:15 113 H 18 100 02/14/23 04:00 118 H 19 100 02/14/23 03:45 103 H 18 100 02/14/23 03:30 106 H 19 97 02/14/23 03:15 113 H 15 02/14/23 03:00 103 H 16 02/14/23 02:45 104 H 14 99 02/14/23 02:30 108 H 15 100 02/14/23 02:15 107 H 17 100 02/13/23 20:00 36.4 C L 02/13/23 20:00 Mechanical Vent 02/14/23 04:00 40 02/14/23 07:08 37.0 C 02/14/23 02:10 107 H 16 98 40 02/14/23 02:00 108 H 14 98 02/14/23 01:45 95 H 14 98 02/14/23 01:30 105 H 16 98 02/14/23 01:15 96 H 14 99 02/14/23 01:00 107 H 15 100 02/14/23 00:45 95 H 14 99 02/14/23 00:30 88 14 100 02/14/23 00:15 87 14 99 02/14/23 00:00 94 H 14 98 02/13/23 23:45 95 H 12 98 02/13/23 23:30 77 L 02/13/23 23:15 97 H 14 95 02/13/23 23:00 104 H 18 97 02/13/23 22:45 100 H 18 95 02/13/23 22:30 108 H 1 L 93 02/13/23 22:15 96 H 14 93 02/13/23 22:00 103 H 14 91 02/13/23 21:51 108/81 02/13/23 21:51 96 02/13/23 21:45 82 L 02/13/23 21:30 99 H 18 95 02/13/23 21:30 88/75 L 02/13/23 21:15 97 H 15 96 02/13/23 21:00 98 H 15 100 02/13/23 21:00 119/78 02/13/23 20:45 95 H 16 96 02/13/23 20:31 109/64 02/13/23 20:31 96 H 12 96 02/13/23 20:30 95 H 17 97 02/13/23 20:15 80 14 98 02/13/23 20:00 87 14 98 02/13/23 20:00 110/67 02/14/23 00:00 91 H 02/14/23 00:00 40 02/13/23 20:00 40 02/13/23 23:03 100 H 16 95 40 02/13/23 19:51 97 H 15 96 40 Laboratory Results 02/14/23 05:54 02/14/23 05:54 Coding Level of Care Code 06261 CRITICAL CARE 1ST 30-74M Diagnoses Thrombocytopenia D69.6 Hypercoagulable state D68.59 Acute hypoxemic respiratory failure J96.01 Respiratory failure J96.01 Chronicity: acute Respiratory failure complication: hypoxia Aspiration pneumonia J69.0 Aspiration pneumonia type: unspecified Laterality: bilateral Lung location: unspecified part of lung Supratherapeutic INR R79.1 Pulmonary embolism I26.99 Myotonic muscular dystrophy G71.11 Anxiety F41.9 Chronic back pain M54.9; G89.29 Time Spent (min) 38 (4) Respiratory failure Chronicity: acute Respiratory failure complication: hypoxia Qualified Cod e(s): J96.01 - Acute respiratory failure with hypoxia (5) Aspiration pneumonia Aspiration pneumonia type: unspecified Laterality: bilateral Lung location: unspecified part of lung Qualified Code(s): J69.0 - Pneumonitis due to inhalation of food and vomit
[2023-02-14] MEDS ORDERED: SODIUM CHLOR 7% 4 ML NEB ONE (08:11)
[2023-02-14] MEDS ORDERED: POTASSIUM PHOSPHATE 21 MMOL in SODIUM CHLORIDE 0.9% 500 ML IV ONE (08:15)
[2023-02-14] MEDS: FORMOTEROL 20 MCG/2 ML VIAL NEB SCH ×2 (08:16→19:31)
[2023-02-14] MEDS: FAMOTIDINE 20 MG in SYRINGE 3 ML IV SCH ×2 (09:01→20:21)
[2023-02-14] MEDS: METOCLOPRAMIDE HCL INJ 5 MG/ML 2 ML VIAL IV SCH ×2 (09:07→20:22)
--- NOTE | 2023-02-14 09:30 | XRay Report ---
XR KUB/Abdomen 1 view CLINICAL HISTORY: Replaced Coresafe NGT TECHNIQUE: 1 view of the abdomen was obtained. Comparison: Comparison is made to abdomen radiograph 02/13/2023 FINDINGS: Enteric tube terminates in the pylorus. Cholecystomy clips are seen in the right upper quadrant. The osseous structures are grossly unremarkable. The bowel gas pattern is nonobstructive. A moderate amou nt of stool is noted within the large bowel. IMPRESSION: Enteric tube terminates in the pylorus. ACT 112: Negative or not required by law. Electronically signed by: Mauricio Winter M.D. 02/14/2023 9:27 AM
--- NOTE | 2023-02-14 09:41 | XRay Report ---
XR chest 1V portable CLINICAL HISTORY: eval pulmonary babin, eval for aspiration TECHNIQUE: Single frontal radiograph of the chest was obtained. Comparison: Comparison is made to chest radiograph 02/13/2023 FINDINGS: Endotracheal tube has been removed and a tracheostomy tube is in place. The cardiomediastinal silhoue tte is normal. Lungs are underinflated and bibasilar airspace opacities are seen. No evidence of pleu ral effusion or pneumothorax. IMPRESSION: Stable bilateral lower lung predominant airspace opacities which may represent atelectasis, pneumonia , and/or aspiration. ACT 112: Negative or not required by law. Electronically signed by: Mauricio Winter M.D. 02/14/2023 9:39 AM
[2023-02-14] MEDS: PROMETHAZINE HCL 12.5 MG in SODIUM CHLORIDE 0.9% 50 ML IV PRN ×2 (13:19→22:55)
--- NOTE | 2023-02-14 13:26 | Hospitalist Progress Note ---
Date of Service February 14, 2023 Assessment & Plan (1) Respiratory failure: Plan: Acute hypoxic respiratory failure Secondary to aspiration pneumonia Recent consumption of marijuana cookies, hx IBS/gastroparesis -- Initially intubated, sedated --02/08: Status post bronchoscopy Fiberoptic bronchoscopy was performed via endotracheal tube. Bronchioalveolar lavage of the left lower lobe was performed. Findings included: Mucopurulent secretions suctioned predominantly from the left lower lobe. [place] appearance. No significant hyponatremia in the airways. 02/11 pt extubated and required re-intubation -> plan for trach, ENT consulted Still having low grade fever 02/13 S/p tracheostomy this AM Cont. to have low grade fever 02/14 Awake and cooperative, s/p trach on vent. Afebrile today. -- Blood cultures: 02/06/23 coag neg staph. x2 - possible contaminant ? -- Repeat blood cultx 02/08/23 - Negative so far Sputum culture: Angelita albicans (rare) Bronchial lavage left lower lobe cultures: Angelita albicans (rare) - likely colonizer and no need to treat - discussed w/ beef cattle specialist --Continue Zosyn IV Will need PEG tube / G-J tube placed. Unsuccessful PEG tube placement in the past. Discussed this with GI. IR unable to place here/ this hospital. Hypercoagulable state (history PE, factor V Leiden mutation as per records) on Coumadin, INR subtherapeutic --Currently on heparin drip Hx orthostatic hypotension as per records, patient not currently on prior midodrine Rx --Monitor blood pressure Hx myotonic dystrophy Borderline personality disorder/anxiety/mood disorder History of traumatic brain injury Prediabetes, current hemoglobin A1c of 5.7 Transaminitis, possible fatty liver disease with note of hepatic change in outpatient CT abdomen pelvis October 2022 Hepatitis panel obtained and negative Chronic thrombocytopenia - cont. to monitor DVT prophylaxis. Heparin drip GI prophylaxis. Famotidine Full code Disposition: ICU Lives at home with her Admission and Anticipated Discharge Date Admission Date: February 06, 2023 Subjective Follow-up for acute hypoxic respiratory failure, aspiration pneumonia, etc. Pt awake today on mechanical ventilator She nods , cooperates appropriate Yesterday, she underwent tracheostomy Now afebrile Review of Systems Review of Systems: All systems reviewed & are unremarkable except as noted in Subjective Physical Exam Physical Exam: General - young F, sedated, s/p trach, on vent Lungs - + course breath sounds b/l Heart- normal rate, regular rhythm; no murmurs Abdomen- normal bowel sounds, nondistended, soft, + bowel sounds Extremities- no pretibial edema Neuro- awake, and cooperative, nods appropriately, moves extremities Skin- warm & dry Results & Data Results & Data Vital Signs (Past 12 Hours) Vital Signs Temp Pulse Pulse Resp Pulse Ox O2 Del Method FiO2 02/14/23 11:38 36.9 C 02/14/23 11:28 115 H 18 98 40 02/14/23 08:20 108 H 19 98 Mechanical Vent 40 02/14/23 07:10 40 02/14/23 07:57 108 H 19 99 40 02/14/23 04:00 37 C 02/14/23 07:15 103 H 15 100 02/14/23 07:00 110 H 22 100 02/14/23 06:45 99 H 17 100 02/14/23 06:30 96 H 16 100 02/14/23 06:15 100 H 17 100 02/14/23 06:00 100 H 17 98 02/14/23 05:45 105 H 19 100 02/14/23 05:30 104 H 16 100 02/14/23 05:15 102 H 14 100 02/14/23 05:00 99 H 14 100 02/14/23 04:45 115 H 23 99 02/14/23 04:30 106 H 14 100 02/14/23 04:15 113 H 18 100 02/14/23 04:00 118 H 19 100 02/14/23 03:45 103 H 18 100 02/14/23 03:30 106 H 19 97 02/14/23 03:15 113 H 15 02/14/23 03:00 103 H 16 02/14/23 02:45 104 H 14 99 02/14/23 02:30 108 H 15 100 02/14/23 02:15 107 H 17 100 02/14/23 04:00 40 02/14/23 07:08 37.0 C 02/14/23 02:10 107 H 16 98 40 02/14/23 02:00 108 H 14 98 02/14/23 01:45 95 H 14 98 02/14/23 01:30 105 H 16 98 Laboratory Results 02/14/23 02/14/23 02/14/23 Range/Units 11:30 06:15 05:54 WBC (4.8-10.8) K/ul RBC (4.20-5.40) M/uL Hgb (12.0-16.0) g/dl Hct (37.0-47.0) % MCV (80.0-100.0) fL MCH (25.0-34.0) pg MCHC (32.0-36.0) g/dL RDW Std Deviation (36.4-46.3) fL RDW Coeff of Ora (11.5-14.5) % Plt Count (130-400) K/uL MPV (9.4-12.4) fL Immature Gran % (Auto) % Neut % (Auto) % Lymph % (Auto) % [place] % (Auto) % Eos % (Auto) % Baso % (Auto) % Neut # (Auto) (1.40-6.50) K/uL Lymph # (Auto) (1.2-3.4) K/uL [place] # (Auto) (0.11-0.59) K/uL Eos # (Auto) (0-0.50) K/uL Baso # (Auto) (0-0.2) K/uL Immature Gran # (Auto) (0.01-0.20) K/uL APTT (21.0-31.0) Seconds PTT Ratio Sodium 140 Potassium 4.1 D Chloride 105 (98-107) mmol/L Carbon Dioxide 27 (21-32) mmol/L Anion Gap 8 BUN 8 (6-23) mg/dl Creatinine 0.59 L (0.6-1.2) mg/dl Est Cr Clr Drug Dosing 100.6 ml/min Est GFR ( Amer) 128.3 ml/min Est GFR (Non-Af Amer) 110.7 ml/min BUN/Creatinine Ratio 13.6 (10-20) Glucose 100 H (70-99(Fasting)) mg/dl POC Glucose 118 H 94 (70-99) mg/dl Calcium 9.7 (8.6-10.3) mg/dl Phosphorus 2.0 L D (2.5-4.9) mg/dl Magnesium 2.3 05/13/23 05/13/23 05/13/23 Range/Units 05:54 05:54 01:23 WBC 6.25 (4.8-10.8) K/ul RBC 3.67 L (4.20-5.40) M/uL Hgb 11.2 L (12.0-16.0) g/dl Hct 33.6 L (37.0-47.0) % MCV 91.6 (80.0-100.0) fL MCH 30.5 (25.0-34.0) pg MCHC 33.3 (32.0-36.0) g/dL RDW Std Deviation 51.9 H (36.4-46.3) fL RDW Coeff of Ora 15.7 H (11.5-14.5) % Plt Count 154 (130-400) K/uL MPV 11.8 (9.4-12.4) fL Immature Gran % (Auto) 1.4 % Neut % (Auto) 71.7 % Lymph % (Auto) 18.2 % [place] % (Auto) 5.4 % Eos % (Auto) 3.0 % Baso % (Auto) 0.3 % Neut # (Auto) 4.47 (1.40-6.50) K/uL Lymph # (Auto) 1.14 L (1.2-3.4) K/uL [place] # (Auto) 0.34 (0.11-0.59) K/uL Eos # (Auto) 0.19 (0-0.50) K/uL Baso # (Auto) 0.02 (0-0.2) K/uL Immature Gran # (Auto) 0.09 (0.01-0.20) K/uL APTT 58.1 H* (21.0-31.0) Seconds PTT Ratio 2.1 Sodium Potassium Chloride (98-107) mmol/L Carbon Dioxide (21-32) mmol/L Anion Gap BUN (6-23) mg/dl Creatinine (0.6-1.2) mg/dl Est Cr Clr Drug Dosing ml/min Est GFR ( Amer) ml/min Est GFR (Non-Af Amer) ml/min BUN/Creatinine Ratio (10-20) Glucose (70-99(Fasting)) mg/dl POC Glucose 96 (70-99) mg/dl Calcium (8.6-10.3) mg/dl Phosphorus (2.5-4.9) mg/dl Magnesium 02/13/23 02/13/23 02/13/23 Range/Units 22:55 22:39 18:11 WBC (4.8-10.8) K/ul RBC (4.20-5.40) M/uL Hgb (12.0-16.0) g/dl Hct (37.0-47.0) % MCV (80.0-100.0) fL MCH (25.0-34.0) pg MCHC (32.0-36.0) g/dL RDW Std Deviation (36.4-46.3) fL RDW Coeff of Ora (11.5-14.5) % Plt Count (130-400) K/uL MPV (9.4-12.4) fL Immature Gran % (Auto) % Neut % (Auto) % Lymph % (Auto) % [place] % (Auto) % Eos % (Auto) % Baso % (Auto) % Neut # (Auto) (1.40-6.50) K/uL Lymph # (Auto) (1.2-3.4) K/uL [place] # (Auto) (0.11-0.59) K/uL Eos # (Auto) (0-0.50) K/uL Baso # (Auto) (0-0.2) K/uL Immature Gran # (Auto) (0.01-0.20) K/uL APTT 21.9 (21.0-31.0) Seconds PTT Ratio 0.8 Sodium 141 Potassium 3.4 L Chloride (98-107) mmol/L Carbon Dioxide (21-32) mmol/L Anion Gap BUN (6-23) mg/dl Creatinine (0.6-1.2) mg/dl Est Cr Clr Drug Dosing ml/min Est GFR ( Amer) ml/min Est GFR (Non-Af Amer) ml/min BUN/Creatinine Ratio (10-20) Glucose (70-99(Fasting)) mg/dl POC Glucose 96 (70-99) mg/dl Calcium (8.6-10.3) mg/dl Phosphorus (2.5-4.9) mg/dl Magnesium 2.3 02/13/23 Range/Units 17:24 WBC (4.8-10.8) K/ul RBC (4.20-5.40) M/uL Hgb (12.0-16.0) g/dl Hct (37.0-47.0) % MCV (80.0-100.0) fL MCH (25.0-34.0) pg MCHC (32.0-36.0) g/dL RDW Std Deviation (36.4-46.3) fL RDW Coeff of Ora (11.5-14.5) % Plt Count (130-400) K/uL MPV (9.4-12.4) fL Immature Gran % (Auto) % Neut % (Auto) % Lymph % (Auto) % [place] % (Auto) % Eos % (Auto) % Baso % (Auto) % Neut # (Auto) (1.40-6.50) K/uL Lymph # (Auto) (1.2-3.4) K/uL [place] # (Auto) (0.11-0.59) K/uL Eos # (Auto) (0-0.50) K/uL Baso # (Auto) (0-0.2) K/uL Immature Gran # (Auto) (0.01-0.20) K/uL APTT (21.0-31.0) Seconds PTT Ratio Sodium TNP Potassium TNP Chloride 105 (98-107) mmol/L Carbon Dioxide 24 (21-32) mmol/L Anion Gap TNP BUN 9 (6-23) mg/dl Creatinine 0.60 (0.6-1.2) mg/dl Est Cr Clr Drug Dosing 98.9 ml/min Est GFR ( Amer) 127.6 ml/min Est GFR (Non-Af Amer) 110.1 ml/min BUN/Creatinine Ratio 15.0 (10-20) Glucose 86 (70-99(Fasting)) mg/dl POC Glucose (70-99) mg/dl Calcium 8.7 (8.6-10.3) mg/dl Phosphorus 4.8 D (2.5-4.9) mg/dl Magnesium TNP Medications Administered Current Inpatient Medications Fentanyl Citrate (Fentanyl Citrate Pf 100 Mcg/2 Ml Vial) 50 mcg IV Q2H PRN PRN Reason: Pain or Agitation Stop: 02/27/23 10:55 Last Admin: 02/14/23 04:49 Dose: 50 mcg Formoterol Fumarate (Formoterol 20 Mcg/2 Ml Vial) 20 mcg NEB BIDR [facility] Stop: 03/16/23 08:59 Last Admin: 02/14/23 08:16 Dose: 20 mcg Promethazine HCl 12.5 mg/ (Sodium Chloride) 50.5 mls @ 202 mls/hr IV Q6H PRN PRN Reason: Nausea And Vomiting Stop: 03/08/23 20:35 Last Admin: 02/14/23 13:19 Dose: 202 mls/hr Heparin Sodium/Dextrose (Heparin Sodium/Dextrose) 25,000 units in 500 mls @ 27 mls/hr IV .[id number] [facility]; Protocol Stop: 03/08/23 22:29 Last Titration: 02/14/23 07:19 Dose: 1,350 units/hr, 27 mls/hr Famotidine 20 mg/ Syringe 5 mls @ 2.5 mls/min IV Q12 [facility] Stop: 03/08/23 22:24 Last Admin: 02/14/23 09:01 Dose: 2.5 mls/min Piperacillin Sod/Tazobactam (Sod 4.5 gm/ Dextrose) 120 mls @ 30 mls/hr IV Q8H [facility]; Protocol Stop: 02/15/23 15:59 Last Infusion: 02/14/23 13:00 Dose: Infused Potassium Phosphate 21 mmol/ (Sodium Chloride) 507 mls @ 88 mls/hr IV ONE ONE Stop: 02/14/23 14:00 Last Admin: 02/14/23 09:09 Dose: 88 mls/hr Metoclopramide HCl (Metoclopramide Hcl Inj 5 Mg/Ml 2 Ml Vial) 5 mg IV BID [facility] Stop: 03/15/23 20:59 Last Admin: 02/14/23 09:07 Dose: 5 mg Nutritional Formula (Peptamen Intense Vhp 1.0 Pedro Luis 1,000 Ml Bag) 1,000 ml OG UD [facility]; Protocol Stop: 03/15/23 20:44 Last Admin: 02/13/23 21:17 Dose: 1,000 ml Sodium Chloride (Sodium Chlor 7% 4 Ml Neb) 4 ml NEB BIDR [facility] Stop: 03/16/23 18:59 Sterile Water (Tube Feeding Water Flush) 30 ml OG Q4H [facility] Stop: 03/11/23 15:44 Last Admin: 02/14/23 13:00 Dose: Not Given (1) Respiratory failure Chronicity: acute Respiratory failure complication: hypoxia Qualified Code(s): J96.01 - Acute respiratory failure with hypoxia
[2023-02-14] MEDS: SODIUM CHLOR 7% 4 ML NEB NEB SCH (19:31)
[2023-02-15] MEDS: PIPERACILLIN/TAZOBACTAM 4.5 GM in DEXTROSE 5% 100 ML IV SCH ×2 (02:07→08:09)
[2023-02-15] MEDS: fentaNYL citrate PF 100 MCG/2 ML VIAL IV PRN ×5 (02:07→23:54)
[2023-02-15] MEDS: TUBE FEEDING WATER FLUSH OG SCH ×5 (04:08→20:18)
[2023-02-15 07:36] LABS: BUN Creatinine Ratio 9.1 (10-20); Calcium 9.8 mg/dl (8.6-10.3); Creatinine Clr Calc Pharmacy 87.5 ml/min; Est GFR (African American) 123.6 ml/min; Est GFR (Non-African American) 106.7 ml/min; Magnesium 2.3 mg/dl (1.7-2.4); Phosphorus 1.8 mg/dl (2.5-4.9); Potassium 3.4 mmol/L (3.5-5.1)
[2023-02-15 07:43] LABS: Basophils # (auto) 0.02 K/uL (0-0.2); Basophils % (auto) 0.3 %; Eosinophils % (auto) 2.9 %; Hematocrit (blood only) 32.6 % (37.0-47.0); Immature Granulocytes # (auto) 0.04 K/uL (0.01-0.20); Immature Granulocytes % (auto) 0.6 %; Lymphocytes # (auto) 1.11 K/uL (1.2-3.4); Lymphocytes % (auto) 16.3 %; Mean Corpuscular Hemoglobin 30.4 pg (25.0-34.0); Mean Corpuscular Hgb Conc 33.7 g/dL (32.0-36.0); Mean Corpuscular Volume 90.1 fL (80.0-100.0); Monocytes # (auto) 0.39 K/uL (0.11-0.59); Monocytes % (auto) 5.7 %; Neutrophils # (auto) 5.04 K/uL (1.40-6.50); Neutrophils % (auto) 74.2 %; Platelet Count 159 K/uL (130-400); RDW Coefficient of Variation 15.5 % (11.5-14.5); RDW Standard Deviation 51.1 fL (36.4-46.3); Red Blood Count 3.62 M/uL (4.20-5.40)
[2023-02-15] MEDS: FAMOTIDINE 20 MG in SYRINGE 3 ML IV SCH ×2 (08:09→20:18)
[2023-02-15 08:11] LABS: Partial Thromboplastin Ratio 1.8; Partial Thromboplastin Ratio 1.9
[2023-02-15] MEDS: PREGABALIN 75 MG CAP PO SCH ×2 (08:11→20:17)
[2023-02-15] MEDS: METOCLOPRAMIDE HCL INJ 5 MG/ML 2 ML VIAL IV SCH ×2 (08:11→20:16)
[2023-02-15] MEDS ORDERED: Nursing to Pharmacy Communication SCH (08:15)
[2023-02-15 08:16] LABS: Partial Thromboplastin Time 50.6 Seconds (21.0-31.0); Partial Thromboplastin Time 52.2 Seconds (21.0-31.0)
[2023-02-15] MEDS: FORMOTEROL 20 MCG/2 ML VIAL NEB SCH ×2 (08:18→21:05)
[2023-02-15] MEDS: SODIUM CHLOR 7% 4 ML NEB NEB SCH ×2 (08:18→21:05)
--- NOTE | 2023-02-15 08:29 | Hospitalist Progress Note ---
Date of Service February 15, 2023 Assessment & Plan (1) Respiratory failure: Plan: Acute hypoxic respiratory failure Secondary to aspiration pneumonia Recent consumption of marijuana cookies, hx IBS/gastroparesis -- Initially intubated, sedated --02/08: Status post bronchoscopy Fiberoptic bronchoscopy was performed via endotracheal tube. Bronchioalveolar lavage of the left lower lobe was performed. Findings included: Mucopurulent secretions suctioned predominantly from the left lower lobe. [place] appearance. No significant hyponatremia in the airways. 02/11 pt extubated and required re-intubation -> plan for trach, ENT consulted Still having low grade fever 02/13 S/p tracheostomy this AM Cont. to have low grade fever 02/14 Awake and cooperative, s/p trach on vent. Afebrile today. -- Blood cultures: 02/06/23 coag neg staph. x2 - possible contaminant ? -- Repeat blood cultx 02/08/23 - Negative so far Sputum culture: Angelita albicans (rare) Bronchial lavage left lower lobe cultures: Angelita albicans (rare) - likely colonizer and no need to treat - discussed w/ hat cone inspector --Continue Zosyn IV Will need PEG tube / G-J tube placed. Unsuccessful PEG tube placement in the past. Discussed this with GI. IR unable to place here/ this hospital. Hypercoagulable state (history PE, factor V Leiden mutation as per records) on Coumadin, INR subtherapeutic --Currently on heparin drip Hx orthostatic hypotension as per records, patient not currently on prior midodrine Rx --Monitor blood pressure Hx myotonic dystrophy Borderline personality disorder/anxiety/mood disorder History of traumatic brain injury Prediabetes, current hemoglobin A1c of 5.7 Transaminitis, possible fatty liver disease with note of hepatic change in outpatient CT abdomen pelvis October 2022 Hepatitis panel obtained and negative Chronic thrombocytopenia - cont. to monitor DVT prophylaxis. Heparin drip GI prophylaxis. Famotidine Full code Disposition: ICU Lives at home with her Admission and Anticipated Discharge Date Admission Date: February 06, 2023 Subjective Follow-up for acute hypoxic respiratory failure, aspiration pneumonia, etc. Pt drowsy but awake, cooperative Underwent tracheostomy 2 days ago Now afebrile Review of Systems Review of Systems: All systems reviewed & are unremarkable except as noted in Subjective Physical Exam Physical Exam: General - young F, sedated, s/p trach, on vent Lungs - + course breath sounds b/l Heart - normal rate, regular rhythm; no murmurs Abdomen - normal bowel sounds, nondistended, soft, + bowel sounds Extremities- no pretibial edema Neuro- awake, and cooperative, nods appropriately, moves extremities Skin- warm & dry Results & Data Results & Data Vital Signs (Past 12 Hours) Vital Signs Pulse Pulse Resp Pulse Ox O2 Del Method O2 Flow Rate FiO2 02/15/23 08:22 105 H 20 95 Trach Collar 20 45 02/15/23 05:14 110 H 20 97 35 02/15/23 04:00 40 02/15/23 00:00 40 02/15/23 00:25 100 H 02/15/23 02:35 21 95 35 02/14/23 22:58 98 H 17 98 35 Laboratory Results 02/15/23 02/15/23 02/15/23 Range/Units 06:58 06:58 06:58 WBC (4.8-10.8) K/ul RBC (4.20-5.40) M/uL Hgb (12.0-16.0) g/dl Hct (37.0-47.0) % MCV (80.0-100.0) fL MCH (25.0-34.0) pg MCHC (32.0-36.0) g/dL RDW Std Deviation (36.4-46.3) fL RDW Coeff of Ora (11.5-14.5) % Plt Count (130-400) K/uL MPV (9.4-12.4) fL Immature Gran % (Auto) % Neut % (Auto) % Lymph % (Auto) % [place] % (Auto) % Eos % (Auto) % Baso % (Auto) % Neut # (Auto) (1.40-6.50) K/uL Lymph # (Auto) (1.2-3.4) K/uL [place] # (Auto) (0.11-0.59) K/uL Eos # (Auto) (0-0.50) K/uL Baso # (Auto) (0-0.2) K/uL Immature Gran # (Auto) (0.01-0.20) K/uL APTT 50.6 H* 52.2 H* (21.0-31.0) Seconds PTT Ratio 1.8 1.9 Sodium 141 (136-145) mmol/L Potassium 3.4 L (3.5-5.1) mmol/L Chloride 105 (98-107) mmol/L Carbon Dioxide 27 (21-32) mmol/L Anion Gap 9 (3-11) BUN 6 (6-23) mg/dl Creatinine 0.66 (0.6-1.2) mg/dl Est Cr Clr Drug Dosing 87.5 ml/min Est GFR ( Amer) 123.6 ml/min Est GFR (Non-Af Amer) 106.7 ml/min BUN/Creatinine Ratio 9.1 L (10-20) Glucose 102 H (70-99(Fasting)) mg/dl POC Glucose (70-99) mg/dl Calcium 9.8 (8.6-10.3) mg/dl Phosphorus 1.8 L (2.5-4.9) mg/dl Magnesium 2.3 (1.7-2.4) mg/dl 02/15/23 02/15/23 02/15/23 Range/Units 06:58 06:14 00:30 WBC 6.80 (4.8-10.8) K/ul RBC 3.62 L (4.20-5.40) M/uL Hgb 11.0 L (12.0-16.0) g/dl Hct 32.6 L (37.0-47.0) % MCV 90.1 (80.0-100.0) fL MCH 30.4 (25.0-34.0) pg MCHC 33.7 (32.0-36.0) g/dL RDW Std Deviation 51.1 H (36.4-46.3) fL RDW Coeff of Ora 15.5 H (11.5-14.5) % Plt Count 159 (130-400) K/uL MPV 12.0 (9.4-12.4) fL Immature Gran % (Auto) 0.6 % Neut % (Auto) 74.2 % Lymph % (Auto) 16.3 % [place] % (Auto) 5.7 % Eos % (Auto) 2.9 % Baso % (Auto) 0.3 % Neut # (Auto) 5.04 (1.40-6.50) K/uL Lymph # (Auto) 1.11 L (1.2-3.4) K/uL [place] # (Auto) 0.39 (0.11-0.59) K/uL Eos # (Auto) 0.20 (0-0.50) K/uL Baso # (Auto) 0.02 (0-0.2) K/uL Immature Gran # (Auto) 0.04 (0.01-0.20) K/uL APTT (21.0-31.0) Seconds PTT Ratio Sodium (136-145) mmol/L Potassium (3.5-5.1) mmol/L Chloride (98-107) mmol/L Carbon Dioxide (21-32) mmol/L Anion Gap (3-11) BUN (6-23) mg/dl Creatinine (0.6-1.2) mg/dl Est Cr Clr Drug Dosing ml/min Est GFR ( Amer) ml/min Est GFR (Non-Af Amer) ml/min BUN/Creatinine Ratio (10-20) Glucose (70-99(Fasting)) mg/dl POC Glucose 90 99 (70-99) mg/dl Calcium (8.6-10.3) mg/dl Phosphorus (2.5-4.9) mg/dl Magnesium (1.7-2.4) mg/dl 02/14/23 02/14/23 Range/Units 17:56 11:30 WBC (4.8-10.8) K/ul RBC (4.20-5.40) M/uL Hgb (12.0-16.0) g/dl Hct (37.0-47.0) % MCV (80.0-100.0) fL MCH (25.0-34.0) pg MCHC (32.0-36.0) g/dL RDW Std Deviation (36.4-46.3) fL RDW Coeff of Ora (11.5-14.5) % Plt Count (130-400) K/uL MPV (9.4-12.4) fL Immature Gran % (Auto) % Neut % (Auto) % Lymph % (Auto) % [place] % (Auto) % Eos % (Auto) % Baso % (Auto) % Neut # (Auto) (1.40-6.50) K/uL Lymph # (Auto) (1.2-3.4) K/uL [place] # (Auto) (0.11-0.59) K/uL Eos # (Auto) (0-0.50) K/uL Baso # (Auto) (0-0.2) K/uL Immature Gran # (Auto) (0.01-0.20) K/uL APTT (21.0-31.0) Seconds PTT Ratio Sodium (136-145) mmol/L Potassium (3.5-5.1) mmol/L Chloride (98-107) mmol/L Carbon Dioxide (21-32) mmol/L Anion Gap (3-11) BUN (6-23) mg/dl Creatinine (0.6-1.2) mg/dl Est Cr Clr Drug Dosing ml/min Est GFR ( Amer) ml/min Est GFR (Non-Af Amer) ml/min BUN/Creatinine Ratio (10-20) Glucose (70-99(Fasting)) mg/dl POC Glucose 108 H 118 H (70-99) mg/dl Calcium (8.6-10.3) mg/dl Phosphorus (2.5-4.9) mg/dl Magnesium (1.7-2.4) mg/dl Medications Administered Current Inpatient Medications Fentanyl Citrate (Fentanyl Citrate Pf 100 Mcg/2 Ml Vial) 50 mcg IV Q2H PRN PRN Reason: Pain or Agitation Stop: 02/27/23 10:55 Last Admin: 02/15/23 06:26 Dose: 50 mcg Fluoxetine HCl (Fluoxetine Hcl 20 Mg Cap) 20 mg PO QAM [facility] Stop: 03/17/23 08:59 Formoterol Fumarate (Formoterol 20 Mcg/2 Ml Vial) 20 mcg NEB BIDR [facility] Stop: 03/16/23 08:59 Last Admin: 02/15/23 08:18 Dose: 20 mcg Promethazine HCl 12.5 mg/ (Sodium Chloride) 50.5 mls @ 202 mls/hr IV Q6H PRN PRN Reason: Nausea And Vomiting Stop: 03/08/23 20:35 Last Infusion: 02/14/23 23:45 Dose: Infused Heparin Sodium/Dextrose (Heparin Sodium/Dextrose) 25,000 units in 500 mls @ 27 mls/hr IV .[id number] [facility]; Protocol Stop: 03/08/23 22:29 Last Titration: 02/15/23 08:28 Dose: 1,350 units/hr, 27 mls/hr Famotidine 20 mg/ Syringe 5 mls @ 2.5 mls/min IV Q12 [facility] Stop: 03/08/23 22:24 Last Admin: 02/15/23 08:09 Dose: 2.5 mls/min Piperacillin Sod/Tazobactam (Sod 4.5 gm/ Dextrose) 120 mls @ 30 mls/hr IV Q8H [facility]; Protocol Stop: 02/15/23 15:59 Last Admin: 02/15/23 08:09 Dose: 30 mls/hr Metoclopramide HCl (Metoclopramide Hcl Inj 5 Mg/Ml 2 Ml Vial) 5 mg IV BID [facility] Stop: 03/15/23 20:59 Last Admin: 02/15/23 08:11 Dose: 5 mg Miscellaneous Information (Nursing To Pharmacy Communication) 1 each N/A TODAY [facility] Stop: 03/17/23 08:14 Nutritional Formula (Peptamen Intense Vhp 1.0 Pedro Luis 1,000 Ml Bag) 1,000 ml OG UD [facility]; Protocol Stop: 03/15/23 20:44 Last Admin: 02/13/23 21:17 Dose: 1,000 ml Pregabalin (Pregabalin 75 Mg Cap) 75 mg PO BID [facility] Stop: 03/17/23 08:59 Last Admin: 02/15/23 08:11 Dose: 75 mg Sodium Chloride (Sodium Chlor 7% 4 Ml Neb) 4 ml NEB BIDR [facility] Stop: 03/16/23 18:59 Last Admin: 02/15/23 08:18 Dose: 4 ml Sterile Water (Tube Feeding Water Flush) 30 ml OG Q4H [facility] Stop: 03/11/23 15:44 Last Admin: 02/15/23 07:33 Dose: Not Given (1) Respiratory failure Chronicity: acute Respiratory failure complication: hypoxia Qualified Code(s): J96.01 - Acute respiratory failure with hypoxia
[2023-02-15] MEDS ORDERED: POTASSIUM PHOS 3 MMOL/1 ML INFUSION IV STA (08:35)
--- NOTE | 2023-02-15 08:38 | Critical Care Progress Note ---
Date of Service February 15, 2023 Assessment & Plan (1) Thrombocytopenia: (2) Hypercoagulable state: (3) Acute hypoxemic respiratory failure: (4) Respiratory failure: (5) Aspiration pneumonia: (6) Supratherapeutic INR: (7) Pulmonary embolism: (8) Myotonic muscular dystrophy: (9) Anxiety: (10) Chronic back pain: Plan Reason Critically Ill: 47-year-old female presents to the ICU for acute hypoxic respiratory failure following an aspiration event after the patient had ingested marijuana edibles, now requiring mechanical ventilation. Neuro - -- Acute metabolic encephalopathy --> improved - History of marijuana edible use, reported as possible recent overdose - D/W denies recent depressive episodes, no verbalized intent to harm -- Anxiety/depression/Borderline personality disorder continue home medications once patient is extubated and taking p.o. - Additional Hx from , prior mental health hospitalizations which were voluntary in nature. -He does not believe there was ever overdose however he did report if there was it was secondary with melatonin --Small fiber neuropathy/Myotonic muscular dystrophy -Follows with [facility] --Chronic coccygeal pain - reports patient treats by consumption of THC tar which she bakes into cookies and consumed multiple cookies -Dosing strategy unclear Cardiac - Hisory PFO -Echocardiogram with bubble study: Reported as limited bubble study, no evidence of right to left shunting History of orthostatic hypotension -Midodrine not listed as active per outpatient medication reconciliation Respiratory - -- TDRF secondary to acute hypoxic respiratory failure sec to multilobar pneumonia with Aspiration -Status post bronchoscopy 02/08/2023 RSV, influenza A/B negative Trial of extubation 02/11/2023 which the patient unfortunately failed. Reintubated 02/11/2023 Patient will need J tube, unfortunately this hospital does not have the capacity to do it S/p tracheostomy 02/13/2023 -- History pulmonary embolism: Stable -Factor V Leiden mutation & chronic immobility secondary to myotonic muscular dystrophy -CTA does not demonstrate PE - anticoagulation with heparin - reports chronic systemic anticoagulation -No clear indication as to why subtherapeutic (non-compliance?) GI - Dysphagia - reports prior attempts at feeding tube placement, this was discontinued -Would consider reevaluation as patient had recurrent aspiration events since last attempted PEG placement, possible GI consult Thursday Transaminitis Trending down -Unclear etiology, this appears to be occasionally recurrent Hepatitis panel negative Gastroparesis Takes metoclopramide at home Will give IV metoclopramide while in the hospital - Worthy -Urinalysis unremarkable, test negative ENDO - Continue with ICU hypoglycemia protocol HEME - Subtherapeutic anticoagulation -Continue heparin infusion until evaluation by GI/surgery for possible PEG tube Chronic thrombocytopenia: stable ID - Febrile illness Staphylococcal growth in blood culture 1 of 2 bottles --> likely contaminant -Repeat blood cultures 02/08/2023 have been negative to date Presumptive aspiration pneumonia -S/p bronchoscopy 02/08/2023 -Rocephin changed to Zosyn --Prophylaxis VTE: Heparin drip GI: Pepcid Lines: Peripheral Diet: Tube feeds Plan: In/out: -397, urine output 1801 Afebrile Chest x-ray from today shows improvement compared to yesterday. The left lower lobe atelectasis has improved We will put the patient on trach collar today for the whole day. At night would like her to be back on assist control Starting tomorrow we can do trials of 24 hours on trach collar. Out of the bed to chair PT OT Continue with hypertonic saline nebulized with bronchodilator. No need for bronchoscopy Potassium and phosphorus being replaced Patient's Gunner [phone] I have personally spent 33 minutes of critical care time in the direct management of this patient. This is a life/limb threatening event. This includes time spent evaluating patient, direct bedside care, chart review, placing orders, interpretation of diagnostic studies, discussion with consultants, patient, and family members, as well as other required patient management activities. This time is exclusive of all separately billable procedures, and teaching time and separate from and in addition to any other critical care service time. Admission and Anticipated Discharge Date Admission Date: February 06, 2023 Subjective Patient seen and examined at bedside. No acute distress, no adverse events overnight. Patient is awake and alert, answering all the questions appropriately Denies any chest pain, no headache, no shortness of breath. Wanted to sit up and take a shower. She did have 1 bout of vomiting overnight which was nonbilious. Overnight patient did have apneic episodes on pressure support and she was put back on ventilator assist control Review of Systems Review of Systems: All systems reviewed & are unremarkable except as noted in Subjective Physical Exam Physical Exam: Constitutional: No acute distress HEENT: PERRLA Respiratory system: Decreased air entry bilaterally, no wheeze, no rhonchi, positive crackles bilaterally CVS: S1-S2 positive, no murmurs or gallops tachycardia Abdomen: Soft, nontender, nondistended, positive bowel sounds x4 Extremities: +2 pulses bilaterally radialis/ dorsalis pedis, no cyanosis, no edema Neuro: Awake alert, following commands, moving all extremities Psych: Normal mood and affect G/U: Positive Worthy Skin: no rashes, warm and dry Lymphatic: no cervical or axillary lymphadenopathy Results & Data Results & Data Vital Signs (Past 12 Hours) Vital Signs Pulse Pulse Resp Pulse Ox O2 Del Method O2 Flow Rate FiO2 02/15/23 08:22 105 H 20 95 Trach Collar 20 45 02/15/23 05:14 110 H 20 97 35 02/15/23 04:00 40 02/15/23 00:00 40 02/15/23 00:25 100 H 02/15/23 02:35 21 95 35 02/14/23 22:58 98 H 17 98 35 Laboratory Results 02/15/23 06:58 02/15/23 06:58 Coding Level of Care Code 56055 CRITICAL CARE 1ST 30-74M Diagnoses Thrombocytopenia D69.6 Hypercoagulable state D68.59 Acute hypoxemic respiratory failure J96.01 Respiratory failure J96.01 Chronicity: acute Respiratory failure complication: hypoxia Aspiration pneumonia J69.0 Aspiration pneumonia type: unspecified Laterality: bilateral Lung location: unspecified part of lung Supratherapeutic INR R79.1 Pulmonary embolism I26.99 Myotonic muscular dystrophy G71.11 Anxiety F41.9 Chronic back pain M54.9; G89.29 (4) Respiratory failure Chronicity: acute Respiratory failure complication: hypoxia Qualified Code(s): J96.01 - Acute respiratory failure with hypoxia (5) Aspiration pneumonia Aspiration pneumonia type: unspecified Laterality: bilateral Lung location: unspecified part of lung Qualified Code(s): J69.0 - Pneumonitis due to inhalation of food and vomit
[2023-02-15] MEDS ORDERED: FLUoxetine HCL 20 MG CAP PO SCH (09:00)
[2023-02-15] MEDS ORDERED: POTASSIUM PHOSPHATE 40 MMOL in SODIUM CHLORIDE 0.9% 1000ML 1,000 ML IV ONE (09:00)
--- NOTE | 2023-02-15 13:31 | XRay Report ---
XR chest 1V portable CLINICAL HISTORY: eval pulmonary babin, eval for aspiration TECHNIQUE: Single frontal radiograph of the chest was obtained. Comparison: Comparison is made to chest radiograph 02/14/2023 FINDINGS: Tracheostomy tube and endotracheal tube are in satisfactory position. The cardiomediastinal silhouett e is normal. Lungs are underinflated but clear apart from linear atelectasis in the left lower lung.. No evidence of pleural effusion or pneumothorax. IMPRESSION: No airspace opacities to suggest pneumonia or aspiration. ACT 112: Negative or not required by law. Electronically signed by: Mauricio Winter M.D. 02/15/2023 1:29 PM
[2023-02-15] MEDS: HEPARIN SODIUM/DEXTROSE 25,000 UNITS/500 ML BAG IV SCH (17:37)
[2023-02-15] MEDS: PROMETHAZINE HCL 12.5 MG in SODIUM CHLORIDE 0.9% 50 ML IV PRN (20:40)
[2023-02-16 04:51] LABS: Basophils # (auto) 0.02 K/uL (0-0.2); Basophils % (auto) 0.4 %; Eosinophils # (auto) 0.21 K/uL (0-0.50); Eosinophils % (auto) 3.7 %; Hematocrit (blood only) 31.1 % (37.0-47.0); Hemoglobin 9.9 g/dl (12.0-16.0); Immature Granulocytes # (auto) 0.03 K/uL (0.01-0.20); Immature Granulocytes % (auto) 0.5 %; Lymphocytes # (auto) 1.28 K/uL (1.2-3.4); Lymphocytes % (auto) 22.8 %; Mean Corpuscular Hemoglobin 29.8 pg (25.0-34.0); Mean Corpuscular Hgb Conc 31.8 g/dL (32.0-36.0); Mean Corpuscular Volume 93.7 fL (80.0-100.0); Mean Platelet Volume 11.6 fL (9.4-12.4); Monocytes # (auto) 0.29 K/uL (0.11-0.59); Monocytes % (auto) 5.2 %; Neutrophils # (auto) 3.78 K/uL (1.40-6.50); Neutrophils % (auto) 67.4 %; Platelet Count 171 K/uL (130-400); RDW Coefficient of Variation 15.5 % (11.5-14.5); RDW Standard Deviation 53.7 fL (36.4-46.3); Red Blood Count 3.32 M/uL (4.20-5.40); White Blood Count 5.61 K/ul (4.8-10.8)
[2023-02-16 05:08] LABS: BUN Creatinine Ratio 9.3 (10-20); Est GFR (African American) 132.1 ml/min; Magnesium 2.4 mg/dl (1.7-2.4); Phosphorus 2.6 mg/dl (2.5-4.9)
[2023-02-16 05:43] LABS: Partial Thromboplastin Ratio 2.3
[2023-02-16 05:59] LABS: Partial Thromboplastin Time 64.4 Seconds (21.0-31.0)
[2023-02-16] MEDS: fentaNYL citrate PF 100 MCG/2 ML VIAL IV PRN (06:09)
--- NOTE | 2023-02-16 07:19 | XRay Report ---
SINGLE VIEW CHEST CLINICAL HISTORY: Aspiration FINDINGS: An AP, portable, upright chest radiograph is compared to study performed earlier the same d ay 02/15/2023. A tracheostomy and enteric tube are unchanged in position. The cardiomediastinal silhou ette is unremarkable. There is developing airspace consolidation in the left mid to lower lung. Right lung appears clear. No large pleural effusion or pneumothorax is seen. The skeletal structures are o steopenic. The bony thorax is grossly intact. Cholecystectomy clips are noted in the right upper quad rant. IMPRESSION: Airspace consolidation is seen in the left mid to lower lung, typical for pneumonia/aspi ration pneumonitis. Clinical correlation will be required and radiographic follow-up to resolution is recommended. ACT 112: Negative or not required by law. Electronically signed by: Alex Venegas M.D. 02/16/2023 7:18 AM
[2023-02-16] MEDS: TUBE FEEDING WATER FLUSH OG SCH ×4 (07:30→15:58)
[2023-02-16] MEDS: SODIUM CHLOR 7% 4 ML NEB NEB SCH ×2 (07:55→20:21)
[2023-02-16] MEDS: FORMOTEROL 20 MCG/2 ML VIAL NEB SCH ×2 (07:55→19:46)
--- NOTE | 2023-02-16 08:16 | Critical Care Progress Note ---
Date of Service February 16, 2023 Assessment & Plan (1) Thrombocytopenia: (2) Hypercoagulable state: (3) Acute hypoxemic respiratory failure: (4) Respiratory failure: (5) Aspiration pneumonia: (6) Supratherapeutic INR: (7) Myotonic muscular dystrophy: (8) Pulmonary embolism: (9) Anxiety: Plan Reason Critically Ill: 47-year-old female presents to the ICU for acute hypoxic respiratory failure following an aspiration event after the patient had ingested marijuana edibles, has a trach in place. Neuro - -- Acute metabolic encephalopathy --> improved - History of marijuana edible use, reported as possible recent overdose - D/W denies recent depressive episodes, no verbalized intent to harm -- Anxiety/depression/Borderline personality disorder continue home medications once patient is extubated and taking p.o. - Additional Hx from , prior mental health hospitalizations which were voluntary in nature. -He does not believe there was ever overdose however he did report if there was it was secondary with melatonin --Small fiber neuropathy/Myotonic muscular dystrophy -Follows with [facility] --Chronic coccygeal pain - reports patient treats by consumption of THC tar which she bakes into cookies and consumed multiple cookies -Dosing strategy unclear Cardiac - Hisory PFO -Echocardiogram with bubble study: Reported as limited bubble study, no evidence of right to left shunting History of orthostatic hypotension -Midodrine not listed as active per outpatient medication reconciliation -EKG ordered today. Respiratory - -- TDRF secondary to acute hypoxic respiratory failure sec to multilobar pneumonia with Aspiration -Status post bronchoscopy 02/08/2023 RSV, influenza A/B negative Trial of extubation 02/11/2023 which the patient unfortunately failed. Reintubated 02/11/2023. Tracheostomy placed on 02/13/2023. Patient will need J tube, unfortunately this hospital does not have the capacity to do it. We will start with TPN and consider transfer to LTAC to have J-tube placed. -- History pulmonary embolism: Stable -Factor V Leiden mutation & chronic immobility secondary to myotonic muscular dystrophy -CTA does not demonstrate PE - anticoagulation with heparin - reports chronic systemic anticoagulation -No clear indication as to why subtherapeutic (non-compliance?) GI - Dysphagia - reports prior attempts at feeding tube placement, this was discontinued -Would consider reevaluation as patient had recurrent aspiration events since last attempted PEG placement, GI consulted today. -Speech consulted. Transaminitis Trending down Unclear etiology, this appears to be occasionally recurrent Hepatitis panel negative Gastroparesis Takes metoclopramide at home Will give IV metoclopramide while in the hospital We will trial Benadryl. Will start on IV fluids LR at 80 mL an hour. GI consulted today, appreciate recommendations. - Worthy -Urinalysis unremarkable, test negative ENDO - Continue with ICU hypoglycemia protocol HEME - Subtherapeutic anticoagulation -Continue heparin infusion until evaluation by GI/surgery for possible PEG tube. New GI consult placed today for continued gastroparesis and emesis. Chronic thrombocytopenia: stable ID - Febrile illness Staphylococcal growth in blood culture 1 of 2 bottles --> likely contaminant -Repeat blood cultures 02/08/2023 have been negative to date Presumptive aspiration pneumonia -S/p bronchoscopy 02/08/2023 -Rocephin changed to Zosyn --Prophylaxis VTE: Heparin drip GI: Pepcid Lines: Peripheral Diet: Will start on TPN. Dietary consulted. Admission and Anticipated Discharge Date Admission Date: February 06, 2023 Supervising Physician Co-Signing Physician Notes Patient seen and examined with the resident physician. Agree with the assessment and plan aside for any additions/exceptions noted: Patient has been without any substantial enteral nutrition for the past week. Discussed with patient and her over the phone. They are agreeable with placement of a PICC line and initiation of TPN. Gastroenterology is unable to place a J-tube here. Will discuss with general surgery about placement of a J- tube. Otherwise, I think she is stable for transfer to an LTAC for further ventilator weaning and PT/OT. Pro-Pedro Luis is unremarkable at 0.42. Repeated attempts at tube feeds that resulted in continuous aspiration events. Continue Reglan. We will also add low-dose Benadryl twice daily. GI consultation noted. We will hold heparin for the time being prior to the insertion of a PICC line and general surgery evaluation. She has a history of PE and hypercoagulability. She has periodic episodes of hypoxia related to inspissated secretions and atelectasis. Unfortunately, we had to reinflate her tracheostomy cuff. She is not ready for Passy-Urban valve trials at this time. She is however tolerating high flow via the tracheostomy. Subjective Patient was seen beside this AM. Continues to have bouts of emesis of green material. States that she is having mild pain around her neck, states that she wants to eat. She does endorse some nausea which she states is new to her. Review of Systems Review of Systems: All systems reviewed & are unremarkable except as noted in Subjective Physical Exam Physical Exam: Constitutional: No acute distress HEENT: PERRLA Respiratory system: Decreased air entry bilaterally, no wheeze, no rhonchi, positive crackles bilaterally CVS: S1-S2 positive, no murmurs or gallops, tachycardia Abdomen: Soft, nontender, nondistended, positive bowel sounds x4 Extremities: +2 pulses bilaterally radialis/ dorsalis pedis, no cyanosis, no edema Neuro: Awake alert, following commands, moving all extremities Psych: Normal mood and affect G/U: Positive Worthy Results & Data Results & Data Vital Signs (Past 12 Hours) Vital Signs Pulse Pulse Resp BP Pulse Ox O2 Del Method O2 Flow Rate 02/16/23 07:00 105 H 19 94/64 L 94 Trach Collar 20 02/16/23 05:40 120 H 22 95 Trach Collar 20 02/16/23 00:29 73 02/16/23 02:41 81 14 97 02/15/23 22:54 79 22 97 02/15/23 21:15 86 14 100 02/15/23 21:00 112 H 26 H 80 L 02/15/23 20:45 107 H 23 95 02/15/23 20:30 114 H 27 H 02/15/23 20:15 114 H 19 02/15/23 21:28 Trach Collar 02/15/23 20:30 100 H 21 96 FiO2 02/16/23 07:00 35 02/16/23 05:40 35 02/16/23 00:29 02/16/23 02:41 35 02/15/23 22:54 35 02/15/23 21:15 02/15/23 21:00 02/15/23 20:45 02/15/23 20:30 02/15/23 20:15 02/15/23 21:28 40 02/15/23 20:30 35 Laboratory Results 02/16/23 04:38 02/16/23 04:38 Resident Activity Tracking Resident Involvement: Resident Care Provided Care Provided: Adult Hospital Medicine (4) Respiratory failure Chronicity: acute Respiratory failure complication: hypoxia Qualified Code(s): J96.01 - Acute respiratory failure with hypoxia (5) Aspiration pneumonia Aspiration pneumonia type: unspecified Laterality: bilateral Lung location: unspecified part of lung Qualified Code(s): J69.0 - Pneumonitis due to inhalation of food and vomit
--- NOTE | 2023-02-16 08:27 | Hospitalist Progress Note ---
Date of Service February 16, 2023 Assessment & Plan (1) Respiratory failure: Plan: Acute hypoxic respiratory failure Secondary to aspiration pneumonia Recent consumption of marijuana cookies, hx IBS/gastroparesis -- Initially intubated, sedated --02/08: Status post bronchoscopy Fiberoptic bronchoscopy was performed via endotracheal tube. Bronchioalveolar lavage of the left lower lobe was performed. Findings included: Mucopurulent secretions suctioned predominantly from the left lower lobe. [place] appearance. No significant hyponatremia in the airways. 02/11 pt extubated and required re-intubation -> plan for trach, ENT consulted Still having low grade fever 02/13 S/p tracheostomy this AM Cont. to have low grade fever 02/14 Awake and cooperative, s/p trach on vent. Afebrile today. -- Blood cultures: 02/06/23 coag neg staph. x2 - possible contaminant ? -- Repeat blood cultx 02/08/23 - Negative so far Sputum culture: Angelita albicans (rare) Bronchial lavage left lower lobe cultures: Angelita albicans (rare) - likely colonizer and no need to treat - discussed w/ tank storage supervisor --Finished Zosyn IV on 02/16/23 Will need PEG tube / G-J tube placed. Unsuccessful PEG tube placement in the past. Discussed this with GI. IR unable to place here/ this hospital. Surgery also consulted and recommend transfer to tertiary center for J-tube placement. Contacted [facility] (as pt follows w/ neurology and GI there) and pt will be transferred there for J-tube placement. Hypercoagulable state (history PE, factor V Leiden mutation as per records) on Coumadin, INR subtherapeutic --Currently on heparin drip Hx orthostatic hypotension as per records, patient not currently on prior midodrine Rx --Monitor blood pressure Hx myotonic dystrophy (follows w/ neurology at [facility]) Borderline personality disorder/anxiety/mood disorder History of traumatic brain injury Prediabetes, current hemoglobin A1c of 5.7 Transaminitis, possible fatty liver disease with note of hepatic change in outpatient CT abdomen pelvis October 2022 Hepatitis panel obtained and negative Chronic thrombocytopenia - cont. to monitor DVT prophylaxis. Heparin drip GI prophylaxis. Famotidine Full code Disposition: ICU - plan to transfer to [facility] for J-tube placement Pt Lives at home with her Admission and Anticipated Discharge Date Admission Date: February 06, 2023 Subjective Follow-up for acute hypoxic respiratory failure, aspiration pneumonia, etc. Pt awake, and cooperative, + nausea/ vomiting Underwent tracheostomy Now afebrile GI and surgery consulted - can not undergo J-tube placement here -> recommend tertiary center Contacted [facility] (as pt follows w/ neurology and GI there) and pt will be transferred there for J-tube placement. Software Sales Manager also on transfer call. Pt's updated by me over the phone and in agreement w/ plan / transfer. Review of Systems Review of Systems: All systems reviewed & are unremarkable except as noted in Subjective Physical Exam Physical Exam: General - young F, sedated, s/p trach, on high flow Lungs - + course breath sounds b/l Heart - normal rate, regular rhythm; no murmurs Abdomen - normal bowel sounds, nondistended, soft, + bowel sounds Extremities- no pretibial edema Neuro- awake, and cooperative, nods appropriately, moves extremities Skin- warm & dry Results & Data Results & Data Vital Signs (Past 12 Hours) Vital Signs Pulse Pulse Resp BP Pulse Ox O2 Del Method O2 Flow Rate 02/16/23 07:00 105 H 19 94/64 L 94 Trach Collar 20 02/16/23 05:40 120 H 22 95 Trach Collar 20 02/16/23 00:29 73 02/16/23 02:41 81 14 97 02/15/23 22:54 79 22 97 02/15/23 21:15 86 14 100 02/15/23 21:00 112 H 26 H 80 L 02/15/23 20:45 107 H 23 95 02/15/23 20:30 114 H 27 H 02/15/23 21:28 Trach Collar 02/15/23 20:30 100 H 21 96 FiO2 02/16/23 07:00 35 02/16/23 05:40 35 02/16/23 00:29 02/16/23 02:41 35 02/15/23 22:54 35 02/15/23 21:15 02/15/23 21:00 02/15/23 20:45 02/15/23 20:30 02/15/23 21:28 40 02/15/23 20:30 35 Laboratory Results 02/16/23 02/16/23 02/16/23 Range/Units 04:39 04:38 04:38 WBC (4.8-10.8) K/ul RBC (4.20-5.40) M/uL Hgb (12.0-16.0) g/dl Hct (37.0-47.0) % MCV (80.0-100.0) fL MCH (25.0-34.0) pg MCHC (32.0-36.0) g/dL RDW Std Deviation (36.4-46.3) fL RDW Coeff of Ora (11.5-14.5) % Plt Count (130-400) K/uL MPV (9.4-12.4) fL Immature Gran % (Auto) % Neut % (Auto) % Lymph % (Auto) % [place] % (Auto) % Eos % (Auto) % Baso % (Auto) % Neut # (Auto) (1.40-6.50) K/uL Lymph # (Auto) (1.2-3.4) K/uL [place] # (Auto) (0.11-0.59) K/uL Eos # (Auto) (0-0.50) K/uL Baso # (Auto) (0-0.2) K/uL Immature Gran # (Auto) (0.01-0.20) K/uL APTT 64.4 H* (21.0-31.0) Seconds PTT Ratio 2.3 Sodium 142 (136-145) mmol/L Potassium 4.0 (3.5-5.1) mmol/L Chloride 110 H (98-107) mmol/L Carbon Dioxide 23 (21-32) mmol/L Anion Gap 9 (3-11) BUN 5 L (6-23) mg/dl Creatinine 0.54 L (0.6-1.2) mg/dl Est Cr Clr Drug Dosing 107.0 ml/min Est GFR ( Amer) 132.1 ml/min Est GFR (Non-Af Amer) 114.0 ml/min BUN/Creatinine Ratio 9.3 L (10-20) Glucose 90 (70-99(Fasting)) mg/dl POC Glucose (70-99) mg/dl Calcium 10.0 (8.6-10.3) mg/dl Phosphorus 2.6 (2.5-4.9) mg/dl Magnesium 2.4 (1.7-2.4) mg/dl Procalcitonin Pending 02/16/23 02/16/23 Range/Units 04:38 02:06 WBC 5.61 (4.8-10.8) K/ul RBC 3.32 L (4.20-5.40) M/uL Hgb 9.9 L (12.0-16.0) g/dl Hct 31.1 L (37.0-47.0) % MCV 93.7 (80.0-100.0) fL MCH 29.8 (25.0-34.0) pg MCHC 31.8 L (32.0-36.0) g/dL RDW Std Deviation 53.7 H (36.4-46.3) fL RDW Coeff of Ora 15.5 H (11.5-14.5) % Plt Count 171 (130-400) K/uL MPV 11.6 (9.4-12.4) fL Immature Gran % (Auto) 0.5 % Neut % (Auto) 67.4 % Lymph % (Auto) 22.8 % [place] % (Auto) 5.2 % Eos % (Auto) 3.7 % Baso % (Auto) 0.4 % Neut # (Auto) 3.78 (1.40-6.50) K/uL Lymph # (Auto) 1.28 (1.2-3.4) K/uL [place] # (Auto) 0.29 (0.11-0.59) K/uL Eos # (Auto) 0.21 (0-0.50) K/uL Baso # (Auto) 0.02 (0-0.2) K/uL Immature Gran # (Auto) 0.03 (0.01-0.20) K/uL APTT (21.0-31.0) Seconds PTT Ratio Sodium (136-145) mmol/L Potassium (3.5-5.1) mmol/L Chloride (98-107) mmol/L Carbon Dioxide (21-32) mmol/L Anion Gap (3-11) BUN (6-23) mg/dl Creatinine (0.6-1.2) mg/dl Est Cr Clr Drug Dosing ml/min Est GFR ( Amer) ml/min Est GFR (Non-Af Amer) ml/min BUN/Creatinine Ratio (10-20) Glucose (70-99(Fasting)) mg/dl POC Glucose 86 (70-99) mg/dl Calcium (8.6-10.3) mg/dl Phosphorus (2.5-4.9) mg/dl Magnesium (1.7-2.4) mg/dl Procalcitonin Medications Administered Current Inpatient Medications Fentanyl Citrate (Fentanyl Citrate Pf 100 Mcg/2 Ml Vial) 50 mcg IV Q2H PRN PRN Reason: Pain or Agitation Stop: 02/27/23 10:55 Last Admin: 02/16/23 06:09 Dose: 50 mcg Fluoxetine HCl (Fluoxetine Hcl 20 Mg/5 Ml Udp) 20 mg NG QAM [facility] Stop: 03/17/23 08:59 Last Admin: 02/15/23 11:56 Dose: 20 mg Formoterol Fumarate (Formoterol 20 Mcg/2 Ml Vial) 20 mcg NEB BIDR [facility] Stop: 03/16/23 08:59 Last Admin: 02/16/23 07:55 Dose: 20 mcg Promethazine HCl 12.5 mg/ (Sodium Chloride) 50.5 mls @ 202 mls/hr IV Q6H PRN PRN Reason: Nausea And Vomiting Stop: 03/08/23 20:35 Last Infusion: 02/15/23 23:31 Dose: Infused Heparin Sodium/Dextrose (Heparin Sodium/Dextrose) 25,000 units in 500 mls @ 27 mls/hr IV .[id number] [facility]; Protocol Stop: 03/08/23 22:29 Last Titration: 02/16/23 06:58 Dose: 1,350 units/hr, 27 mls/hr Famotidine 20 mg/ Syringe 5 mls @ 2.5 mls/min IV Q12 [facility] Stop: 03/08/23 22:24 Last Admin: 02/15/23 20:18 Dose: 2.5 mls/min Metoclopramide HCl (Metoclopramide Hcl Inj 5 Mg/Ml 2 Ml Vial) 5 mg IV BID [facility] Stop: 03/15/23 20:59 Last Admin: 02/15/23 20:16 Dose: 5 mg Pregabalin (Pregabalin 75 Mg Cap) 75 mg PO BID [facility] Stop: 03/17/23 08:59 Last Admin: 02/15/23 20:17 Dose: 75 mg Sodium Chloride (Sodium Chlor 7% 4 Ml Neb) 4 ml NEB BIDR [facility] Stop: 03/16/23 18:59 Last Admin: 02/16/23 07:55 Dose: 4 ml Sterile Water (Tube Feeding Water Flush) 30 ml OG Q4H [facility] Stop: 03/11/23 15:44 Last Admin: 02/16/23 07:30 Dose: Not Given (1) Respiratory failure Chronicity: acute Respiratory failure complication: hypoxia Qualified Code(s): J96.01 - Acute respiratory failure with hypoxia
[2023-02-16] MEDS: FAMOTIDINE 20 MG in SYRINGE 3 ML IV SCH (08:49)
[2023-02-16] MEDS: PREGABALIN 75 MG CAP PO SCH (08:51)
[2023-02-16] MEDS: METOCLOPRAMIDE HCL INJ 5 MG/ML 2 ML VIAL IV SCH (08:51)
--- NOTE | 2023-02-16 09:10 | Billing Data ---
Date of Service February 16, 2023 Coding Level of Care Code 16670 SUB INP/OBS CARE
[2023-02-16] MEDS ORDERED: diphenhydrAMINE 50 MG/ML VIAL IV STA (09:22)
[2023-02-16] MEDS ORDERED: LACTATED RINGER'S 1,000 ML IV SCH (09:30)
--- NOTE | 2023-02-16 09:43 | Gastrointestinal Consultation ---
Date of Consultation February 16, 2023 Assessment & Plan (1) Gastroparesis: 47 year old female with muscular dystrophy, factor V Leyden mutation (anticoagulated on warfarin), pulmonary embolism (2011), borderline personality disorder, anxiety disorder, depression who presented to the emergency department earlier this evening as unresponsive and hypoxic - GI asked to evaluate for J- tube candidancy given history of gastroparesis and failed PEG in the past We are unable to complete Jtubes This will need to be placed surgically Can consider general surgery consultation here locally Or transfer for Jtube evaluation Regarding her nausea/vomiting would optimize her antiemetics She notes that Reglan works well at home and typically uses 2/3 days a week Agree w/ acid suppression and Reglan as ordered Recall as needed. Thank you for allowing us to participate in the care of this patient. Please call with any acute changes, questions or concerns. Please see addendum below with additional recommendation from my supervising physician. Supervising Physician Co-Signing Physician Notes I personally saw and evaluated the patient on 02/16/2023 with VIOLET Shen and agree with her findings and plan of care. Patient laying in bed. Trach in place. Abdomen soft and non-tender. Case previously discussed with GI last week regarding J tube placement. She previously had a failed G tube in the past as she has severe gastroparesis. Attempted for PEG tube placement in [address] Gutierrez but unable as patient did not have a window. Given her ongoing aspiration and emesis with need for feeding a J tube is likely what she will require. Unfortunately, we do not place these here. Would recommend either discussing with surgery to see if they can place a surgical J tube otherwise she would need transferred to a tertiary care center for J tube placement. Carolyne Huitron DO Gastroenterology and Hepatology History of Present Illness Reason for Consultation: nausea/vomiting Requesting Physician: Nighat Attending Physician: Edwin Disla MD History of Present Illness 47 year old female with history of muscular dystrophy, factor V Leyden mutation (anticoagulated on warfarin), pulmonary embolism (2011), borderline personality disorder, anxiety disorder, depression who presented to the emergency department earlier this evening as unresponsive and hypoxic.GI was asked to evaluate given her history of gastroparesis, nausea/vomiting and consideration of feeing tube placement. Colon 2022: - The examined portion of the ileum was normal. - Normal mucosa in the entire examined colon. Biopsied. - Submucosal nodule in the descending colon. Biopsied. Tattooed. - Internal hemorrhoids. - The examination was otherwise normal. EGD 2019: - No visible esophageal motility. - Normal stomach. Due to inadequate transillumination and inadequate one-to-one localization (i.e. inadequate localization by palpation) PEG was not completed. - Normal duodenal bulb and second portion of the duodenum. - No specimens collected. Allergies Allergy/AdvReac Type Severity Reaction Status Date / Time hydrocodone Allergy Severe EDEMA Verified 02/06/23 17:37 FACE, LIPS, TONGUE mushroom Allergy Intermediate NAUSEA/VOMI Verified 02/06/23 17:37 TING Penicillins Allergy Intermediate EDEMA Verified 02/06/23 17:37 azithromycin AdvReac Severe NAUSEA/VOMI Verified 02/06/23 17:37 TING chicken derived AdvReac Intermediate DIARRHEA/NA Verified 02/06/23 17:37 USEA/VOMITI NG mivacurium AdvReac Intermediate VOMITING Verified 02/06/23 17:37 PER [facility] [place] MED LIST mold AdvReac Intermediate NAUSEA/VOMI Verified 02/06/23 17:37 TING cabbage AdvReac Unknown Unknown Verified 02/07/23 10:24 Home Medications Medication Instructions Recorded Confirmed Type fluoxetine 20 mg capsule 20 mg PO QAM 10/06/18 02/06/23 History warfarin 4 mg tablet See Rx Instructions .Route .COMPLEX 05/30/19 02/06/23 History acetaminophen 500 mg tablet 1,000 mg PO Q6H PRN Pain 08/09/19 02/06/23 History melatonin 10 mg tablet 10 mg PO HS 04/26/20 02/06/23 History Cbd Cream 1 applic PO TID PRN Pain 11/22/21 02/06/23 History pregabalin 75 mg capsule 75 mg PO BID 11/03/22 02/06/23 History Delta 8 Gummy 1 tab PO DAILY PRN Pain 02/06/23 02/06/23 History metoclopramide HCl 5 mg tablet 5 mg PO HS 02/06/23 02/06/23 History ondansetron HCl 4 mg tablet 4 mg PO Q8H PRN NAUSEA/VOMITING 02/06/23 02/06/23 History Patient History Medical History Anxiety Borderline personality disorder Chronic back pain Clinical depression 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 Ovarian cyst Pulmonary embolism (08/15/12) B/L (2010); diagnosed with Factor V Leiden- on warfarin Surgical History H/O exploratory laparotomy + OVARIAN CYST REMOVAL; Exploratory lap: 01/15/17: Grade view 1, MAC#3, ETT 7.0 + TAP block at [facility] History of adenoidectomy History of blepharoplasty x2 History of cataract surgery History of cholecystectomy History of cystoscopy History of esophagogastroduodenoscopy (EGD) History of tonsillectomy Hx of lumpectomy RIGHT Slow to wake up after anesthesia Family History Father Myotonic muscular dystrophy Grandfather (Paternal) Myotonic muscular dystrophy Brother Myotonic muscular dystrophy Grandmother (Paternal) Myotonic muscular dystrophy Other Cancer Hypertension Social History Smoking Status: Never smoker Second Hand Exposure: No; Do You Dip or Chew Tobacco: No; Hx Alcohol Use: Yes Alcohol type: wine Hx Substance Use: Yes Substance Use Type Other:: recent medical marijuana card - made THC cookies according to ER record Preferred Language: Danish Communication Ability: Unable Communication Ability Comment: t/v now - no impairment prior Visual Impairment: No Limitations Assembler Required: No Beliefs That Will Affect Care: Spiritual marital status: Single Current Living Situation: Spouse current occupational status: unemployed Other Information That Helps Us Care for You: No Feels Safe at Home: Yes Assistive Devices: Cane and Oxygen - Continuous Assistive Devices Comment: cane as needed Review of Systems Review of Systems: Unobtainable due to endotracheal tube (TRACH) Physical Exam Constitutional: WD/WN, vitals as above Respiratory: normal respiratory effort Cardiovascular: Rate/Rhythm: regular rate Gastrointestinal (Abdomen): normal bowel sounds, soft, nontender, no hepatosplenomegaly Skin: no rashes, warm and dry Results & Data Vital Signs (Past 12 Hours) Vital Signs Temp Pulse Pulse Resp BP Pulse Ox O2 Del Method 02/16/23 09:29 37.3 C 02/16/23 08:20 98 H 20 96 High Flow Nasal Cannula 02/16/23 08:15 98 H 20 96 High Flow Nasal Cannula 02/16/23 07:00 105 H 19 94/64 L 94 Trach Collar 02/16/23 05:40 120 H 22 95 Trach Collar 02/16/23 00:29 73 02/16/23 02:41 81 14 97 02/15/23 22:54 79 22 97 O2 Flow Rate FiO2 02/16/23 09:29 02/16/23 08:20 20 35 02/16/23 08:15 20 35 02/16/23 07:00 20 35 02/16/23 05:40 20 35 02/16/23 00:29 02/16/23 02:41 35 02/15/23 22:54 35 Laboratory Results 02/16/23 02/16/23 02/16/23 Range/Units 04:39 04:38 04:38 WBC (4.8-10.8) K/ul RBC (4.20-5.40) M/uL Hgb (12.0-16.0) g/dl Hct (37.0-47.0) % MCV (80.0-100.0) fL MCH (25.0-34.0) pg MCHC (32.0-36.0) g/dL RDW Std Deviation (36.4-46.3) fL RDW Coeff of Ora (11.5-14.5) % Plt Count (130-400) K/uL MPV (9.4-12.4) fL Immature Gran % (Auto) % Neut % (Auto) % Lymph % (Auto) % [place] % (Auto) % Eos % (Auto) % Baso % (Auto) % Neut # (Auto) (1.40-6.50) K/uL Lymph # (Auto) (1.2-3.4) K/uL [place] # (Auto) (0.11-0.59) K/uL Eos # (Auto) (0-0.50) K/uL Baso # (Auto) (0-0.2) K/uL Immature Gran # (Auto) (0.01-0.20) K/uL APTT 64.4 H* (21.0-31.0) Seconds PTT Ratio 2.3 Sodium 142 (136-145) mmol/L Potassium 4.0 (3.5-5.1) mmol/L Chloride 110 H (98-107) mmol/L Carbon Dioxide 23 (21-32) mmol/L Anion Gap 9 (3-11) BUN 5 L (6-23) mg/dl Creatinine 0.54 L (0.6-1.2) mg/dl Est Cr Clr Drug Dosing 107.0 ml/min Est GFR ( Amer) 132.1 ml/min Est GFR (Non-Af Amer) 114.0 ml/min BUN/Creatinine Ratio 9.3 L (10-20) Glucose 90 (70-99(Fasting)) mg/dl POC Glucose (70-99) mg/dl Calcium 10.0 (8.6-10.3) mg/dl Phosphorus 2.6 (2.5-4.9) mg/dl Magnesium 2.4 (1.7-2.4) mg/dl Procalcitonin Pending 02/16/23 02/16/23 Range/Units 04:38 02:06 WBC 5.61 (4.8-10.8) K/ul RBC 3.32 L (4.20-5.40) M/uL Hgb 9.9 L (12.0-16.0) g/dl Hct 31.1 L (37.0-47.0) % MCV 93.7 (80.0-100.0) fL MCH 29.8 (25.0-34.0) pg MCHC 31.8 L (32.0-36.0) g/dL RDW Std Deviation 53.7 H (36.4-46.3) fL RDW Coeff of Ora 15.5 H (11.5-14.5) % Plt Count 171 (130-400) K/uL MPV 11.6 (9.4-12.4) fL Immature Gran % (Auto) 0.5 % Neut % (Auto) 67.4 % Lymph % (Auto) 22.8 % [place] % (Auto) 5.2 % Eos % (Auto) 3.7 % Baso % (Auto) 0.4 % Neut # (Auto) 3.78 (1.40-6.50) K/uL Lymph # (Auto) 1.28 (1.2-3.4) K/uL [place] # (Auto) 0.29 (0.11-0.59) K/uL Eos # (Auto) 0.21 (0-0.50) K/uL Baso # (Auto) 0.02 (0-0.2) K/uL Immature Gran # (Auto) 0.03 (0.01-0.20) K/uL APTT (21.0-31.0) Seconds PTT Ratio Sodium (136-145) mmol/L Potassium (3.5-5.1) mmol/L Chloride (98-107) mmol/L Carbon Dioxide (21-32) mmol/L Anion Gap (3-11) BUN (6-23) mg/dl Creatinine (0.6-1.2) mg/dl Est Cr Clr Drug Dosing ml/min Est GFR ( Amer) ml/min Est GFR (Non-Af Amer) ml/min BUN/Creatinine Ratio (10-20) Glucose (70-99(Fasting)) mg/dl POC Glucose 86 (70-99) mg/dl Calcium (8.6-10.3) mg/dl Phosphorus (2.5-4.9) mg/dl Magnesium (1.7-2.4) mg/dl Procalcitonin
[2023-02-16] MEDS ORDERED: TPN/PPN CONSULT PHARMACY PRN (09:58)
[2023-02-16 10:49] LABS: Bilirubin,Total 0.4 mg/dl (0.2-1.0)
--- NOTE | 2023-02-16 12:46 | Surgery Consultation ---
Date of Consultation February 16, 2023 Assessment & Plan (1) Gastroparesis: pt is a 47 year-old female who was admitted to ICU for unresponsive and hypoxia. pt had tracheostomy, pt is consulted for possible J-tube for feeding. pt had gastroparesis and failed G-tube in the past. IMP: gastroparesis plan, based on pt's H/O exploratory laparotomy and S/P cholecystectomy. most likely adhesion scar on upper abdomen. recommend to transfer to higher level care for consult IR for J-tube. D/W ICU attending. sign off today, please call with questions, thanks. Supervising Physician Co-Signing Physician Notes Patient seen and examined with the resident physician. Agree with the assessment and plan aside for any additions/exceptions noted: Patient has been without any substantial enteral nutrition for the past week. Discussed with patient and her over the phone. They are agreeable with placement of a PICC line and initiation of TPN. Gastroenterology is unable to place a J-tube here. Will discuss with general surgery about placement of a J- tube. Otherwise, I think she is stable for transfer to an LTAC for further ventilator weaning and PT/OT. Pro-Pedro Luis is unremarkable at 0.42. Repeated attempts at tube feeds that resulted in continuous aspiration events. Continue Reglan. We will also add low-dose Benadryl twice daily. GI consultation noted. We will hold heparin for the time being prior to the insertion of a PICC line and general surgery evaluation. She has a history of PE and hypercoagulability. She has periodic episodes of hypoxia related to inspissated secretions and atelectasis. Unfortunately, we had to reinflate her tracheostomy cuff. She is not ready for [place] valve trials at this time. She is however tolerating high flow via the tracheostomy. History of Present Illness Reason for Consultation: consult for possible J-tube Requesting Physician: Jose Ramon Bahena Attending Physician: Edwin Disla MD History of Present Illness CC: unresponsive and hypoxia HPI: pt is a 47 year-old female who with significant history of muscular dystrophy, factor V leiden mutation, ( anticoagulated on Warfarin) , pulmonary embolism ( 2011), anxiety and depression. pt presented to ER with finding pt found on floor and unresponsive by her , pt was admitted to ICU on the vent. pt had tracheostomy on . I was asked for consult J- tube. GI saw pt and recommend to consult general surgery or transfer higher level care for IR consult J-tube, pt had gastroparesis and failed PEG tube in the past. Allergies Allergy/AdvReac Type Severity Reaction Status Date / Time hydrocodone Allergy Severe EDEMA Verified 02/06/23 17:37 FACE, LIPS, TONGUE mushroom Allergy Intermediate NAUSEA/VOMI Verified 02/06/23 17:37 TING Penicillins Allergy Intermediate EDEMA Verified 02/06/23 17:37 azithromycin AdvReac Severe NAUSEA/VOMI Verified 02/06/23 17:37 TING chicken derived AdvReac Intermediate DIARRHEA/NA Verified 02/06/23 17:37 USEA/VOMITI NG mivacurium AdvReac Intermediate VOMITING Verified 02/06/23 17:37 PER [facility] [place] mold AdvReac Intermediate NAUSEA/VOMI Verified 02/06/23 17:37 TING cabbage AdvReac Unknown Unknown Verified 02/07/23 10:24 Home Medications Medication Instructions Recorded Confirmed Type fluoxetine 20 mg capsule 20 mg PO QAM 10/06/18 02/06/23 History warfarin 4 mg tablet See Rx Instructions .Route .COMPLEX 05/30/19 02/06/23 History acetaminophen 500 mg tablet 1,000 mg PO Q6H PRN Pain 08/09/19 02/06/23 History melatonin 10 mg tablet 10 mg PO HS 04/26/20 02/06/23 History Cbd Cream 1 applic PO TID PRN Pain 11/22/21 02/06/23 History pregabalin 75 mg capsule 75 mg PO BID 11/03/22 02/06/23 History Delta 8 Gummy 1 tab PO DAILY PRN Pain 02/06/23 02/06/23 History metoclopramide HCl 5 mg tablet 5 mg PO HS 02/06/23 02/06/23 History ondansetron HCl 4 mg tablet 4 mg PO Q8H PRN NAUSEA/VOMITING 02/06/23 02/06/23 History Patient History Medical History Anxiety Borderline personality disorder Chronic back pain Clinical depression 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 Ovarian cyst Pulmonary embolism (08/15/12) B/L (2010); diagnosed with Factor V Leiden- on warfarin Surgical History H/O exploratory laparotomy + OVARIAN CYST REMOVAL; Exploratory lap: 01/15/17: Grade view 1, MAC#3, ETT 7.0 + TAP block at [facility] History of adenoidectomy History of blepharoplasty x2 History of cataract surgery History of cholecystectomy History of cystoscopy History of esophagogastroduodenoscopy (EGD) History of tonsillectomy Hx of lumpectomy RIGHT Slow to wake up after anesthesia Family History Father Myotonic muscular dystrophy Grandfather (Paternal) Myotonic muscular dystrophy Brother Myotonic muscular dystrophy Grandmother (Paternal) Myotonic muscular dystrophy Other Cancer Hypertension Social History Smoking Status: Never smoker Second Hand Exposure: No; Do You Dip or Chew Tobacco: No; Hx Alcohol Use: Yes Alcohol type: wine Hx Substance Use: Yes Substance Use Type Other:: recent medical marijuana card - made THC cookies according to ER record Preferred Language: Vietnamese Communication Ability: Unable Communication Ability Comment: t/v now - no impairment prior Visual Impairment: No Limitations Archival Records Clerk Required: No Beliefs That Will Affect Care: Spiritual marital status: Single Current Living Situation: Spouse current occupational status: unemployed Other Information That Helps Us Care for You: No Feels Safe at Home: Yes Assistive Devices: Cane and Oxygen - Continuous Assistive Devices Comment: cane as needed Review of Systems Respiratory: respiratory failure, pulmonary embolism Cardiovascular: as per Subjective / HPI and + problem reported (chest pain) Gastrointestinal: gastroparesis, GERD, hiatal hernia, Bulimia nervosa, H/O exploratory laparotomy, S/P cholecystectomy Musculoskeletal: back pain, Neurologic: as per Subjective / HPI Psychiatric: anxiety , depression Hematologic / Lymphatic: Factor V Leiden mutation, anemia Physical Exam Constitutional: awake, alert Eyes: PERRL, conjunctivae normal, anicteric sclerae Neck: trachea midline, no thyromegaly Respiratory: normal respiratory effort, lungs clear to auscultation tracheostomy Cardiovascular: RRR, no murmur, no edema Gastrointestinal (Abdomen): soft, some scar on abdomen, no distend, no tenderness, BS +, Neurologic: patellar DTR's 2+ bilat, sensation intact Psychiatric: A+Ox3, euthymic affect Results & Data Vital Signs (Past 12 Hours) Vital Signs Temp Pulse Pulse Resp BP Pulse Ox O2 Del Method 02/16/23 11:00 95 H 29 H 91 02/16/23 10:00 103 H 20 108/64 92 Trach Collar 02/16/23 09:00 102 H 20 96 02/16/23 08:01 112 H 23 102/63 92 Trach Collar 02/16/23 08:00 115 H 18 114/79 94 02/16/23 10:55 Trach Collar 02/16/23 08:00 02/16/23 10:07 109 H 18 93 Trach Collar 02/16/23 09:29 37.3 C 02/16/23 08:20 98 H 20 96 Trach Collar 02/16/23 08:15 98 H 20 96 Trach Collar 02/16/23 07:00 105 H 19 94/64 L 94 Trach Collar 02/16/23 05:40 120 H 22 95 Trach Collar 02/16/23 02:41 81 14 97 O2 Flow Rate FiO2 02/16/23 11:00 02/16/23 10:00 02/16/23 09:00 02/16/23 08:01 20 35 02/16/23 08:00 02/16/23 10:55 20 35 02/16/23 08:00 35 02/16/23 10:07 20 35 02/16/23 09:29 02/16/23 08:20 20 35 02/16/23 08:15 20 35 02/16/23 07:00 20 35 02/16/23 05:40 20 35 02/16/23 02:41 35 Laboratory Results Abnormal lab results 02/16/23 02/16/23 02/16/23 Range/Units 04:38 04:38 04:38 RBC 3.32 L (4.20-5.40) M/uL Hgb 9.9 L (12.0-16.0) g/dl Hct 31.1 L (37.0-47.0) % MCHC 31.8 L (32.0-36.0) g/dL RDW Std Deviation 53.7 H (36.4-46.3) fL RDW Coeff of Ora 15.5 H (11.5-14.5) % APTT 64.4 H* (21.0-31.0) Seconds Chloride 110 H (98-107) mmol/L BUN 5 L (6-23) mg/dl Creatinine 0.54 L (0.6-1.2) mg/dl BUN/Creatinine Ratio 9.3 L (10-20) Alkaline Phosphatase (34-104) U/L Triglycerides (0-150) mg/dl 02/16/23 Range/Units 10:23 RBC (4.20-5.40) M/uL Hgb (12.0-16.0) g/dl Hct (37.0-47.0) % MCHC (32.0-36.0) g/dL RDW Std Deviation (36.4-46.3) fL RDW Coeff of Ora (11.5-14.5) % APTT (21.0-31.0) Seconds Chloride (98-107) mmol/L BUN (6-23) mg/dl Creatinine (0.6-1.2) mg/dl BUN/Creatinine Ratio (10-20) Alkaline Phosphatase 313 H (34-104) U/L Triglycerides 187 H (0-150) mg/dl Diagnostic Findings US liver CLINICAL HISTORY: Elevated hepatic alkaline phosphatase TECHNIQUE: Multiple real-time sonographic images of the right upper quadrant were obtained. Comparison: None available at the time of this dictation. FINDINGS: The liver is diffusely echogenic in appearance with poor ultrasound penetration, with normal contour, which is consistent with fatty infiltration. No focal mass lesions are seen. No intrahepatic ductal dilatation is seen. Patient is status post cholecystectomy. The common duct measures 0.5 cm in diameter at the level of the hepatic artery. The visualized portions of the pancreas appear normal. The right kidney shows normal echogenicity, cortical thickness and renal contour. The right kidney shows no evidence of hydronephrosis or mass. No ascites or free fluid is seen in Brewer's pouch. IMPRESSION: Hepatic steatosis without other acute abnormality.
--- NOTE | 2023-02-16 13:03 | Pharmacy Report ---
Pharmacy PN Initial Consult - Date of Service February 16, 2023 - Scope Pharmacy has been consulted to manage parenteral nutrition orders and order appropriate labs. As part of the Nutrition Support Team guidelines, pharmacy will work in conjunction with dietary when determining the patients caloric needs. - Subjective The patient is a 47 year old F admitted on 02/06/23 20:33 for RESP FAILURE. Patient is to receive parenteral nutrition for prolonged NPO status and failed enteral nutrition. Pertinent PMH: * Esophageal dysmotility * Gastroparesis * Muscular dystrophy - Objective Height: 4 ft 11 in Weight: 64 kg Diet: NPO Intake & Output (Last 24Hrs): Intake & Output 02/14/23 02/15/23 02/16/23 02/17/23 06:59 06:59 06:59 06:59 Intake Total 2118.6733 / 2118.6733 1498.00 / 1498.00 2334.2833 / 2334.2833 148.2 / 148.2 Output Total 2107 / 2107 1801 / 1801 1478 / 1478 Balance 11.6733 / 11.6733 -303.00 / -303.00 856.2833 / 856.2833 148.2 / 148.2 Weight 67.5 kg 64 kg 64 kg 64 kg Laboratory Data (Last 24 Hrs):: 02/16/23 02/16/23 04:38 10:23 Sodium 142 Potassium 4.0 Chloride 110 H Carbon Dioxide 23 BUN 5 L Creatinine 0.54 L Glucose 90 Calcium 10.0 Phosphorus 2.6 Magnesium 2.4 Total Bilirubin 0.4 AST 33 ALT 49 Alkaline Phosphatase 313 H Triglycerides 187 H Nutrition Assessment:: Please refer to the Notes section of the EMR for the most recent sox analyst note. - Assessment 02/16: * Sherita has been without any real nutrition since admission on 02/06/23 (10 days). * Having episodes of emesis with tube feeds on trickle. Therefore, will explore PN route. * Of note, GI consulted and cannot place J tube. * Surgery consult pending for the same. * Will start with PPN for day #1 as IV team could not find a viable vein for PICC line placement at this time. They are to reassess the patient this afternoon following a fluid bolus. * Appreciate recommendations from registered dietitian. - Plan For day #1 of PPN administration, the following will be ordered: Macronutrients Amino acid 66 grams/day Dextrose 78 grams/day Lipids 50 grams/day Micronutrients Sodium chloride 40 mEq Sodium acetate 40 mEq Potassium phosphate 30 mMol Potassium acetate 20 mEq Multivitamins 10 mL Trace Elements 1 mL Thiamine 100 mg Total volume 1628 mL to be infused over 24 hrs will provide 1030.4 kcal/day Final osmolarity 817 mOsm/L (maximum for PPN is 900 mOsm/L) Labs to be ordered per PN order protocol Pharmacy will follow and adjust parenteral nutrition orders on a daily basis. Thank you.
--- NOTE | 2023-02-16 14:04 | Ultrasound Report ---
US liver CLINICAL HISTORY: Elevated hepatic alkaline phosphatase TECHNIQUE: Multiple real-time sonographic images of the right upper quadrant were obtained. Comparison: None available at the time of this dictation. FINDINGS: The liver is diffusely echogenic in appearance with poor ultrasound penetration, with normal contour, which is consistent with fatty infiltration. No focal mass lesions are seen. No intrahepatic duct al dilatation is seen. Patient is status post cholecystectomy. The common duct measures 0.5 cm in d iameter at the level of the hepatic artery. The visualized portions of the pancreas appear normal. The right kidney shows normal echogenicity, cortical thickness and renal contour. The right kidney sh ows no evidence of hydronephrosis or mass. No ascites or free fluid is seen in Brewer's pouch. IMPRESSION: Hepatic steatosis without other acute abnormality. ACT 112: Negative or not required by law. Electronically signed by: Mauricio Winter M.D. 02/16/2023 2:02 PM
[2023-02-16] MEDS: HEPARIN SODIUM/DEXTROSE 25,000 UNITS/500 ML BAG IV SCH (14:49)
[2023-02-16] MEDS: PROMETHAZINE HCL 12.5 MG in SODIUM CHLORIDE 0.9% 50 ML IV PRN (15:32)
[2023-02-16] MEDS ORDERED: [UNRECOGNIZED DRUG - OTHER] IV SCH (16:00)
[2023-02-16] MEDS ORDERED: DEXTROSE 10% 1,000 ML IV PRN (16:00)
[2023-02-16] MEDS ORDERED: PERIPHERAL TPN IV SCH (16:00)
[2023-02-16] MEDS ORDERED: CLINOLIPID 20% IV FAT EMULSION 250 ML IV SCH (16:00)
--- NOTE | 2023-02-16 17:04 | Electrocardiogram Report ---
Test Reason : Blood Pressure : / mmHG Vent. Rate : 092 BPM Atrial Rate : 092 BPM P-R Int : 182 ms QRS Dur : 076 ms QT Int : 348 ms P-R-T Axes : 087 005 065 degrees QTc Int : 430 ms Normal sinus rhythm T wave abnormality, consider anterior ischemia Abnormal ECG When compared with ECG of 06-FEB-2023 18:09, T wave inversion now evident in Anterior leads Confirmed by Harman Parra ([id number]) on 02/16/2023 5:04:11 PM Referred By: REFERRED SELF Confirmed By:Marcelo Parra
[2023-02-16] MEDS ORDERED: diphenhydrAMINE 50 MG/ML VIAL IV SCH (21:00)
--- NOTE | 2023-02-16 21:46 | Discharge Summary ---
Date of Service February 16, 2023 Admission HPI Per Admitting Provider History obtained from ER provider, family, and records. Unable to obtain history from patient secondary to intubated state. Medical history significant for hypercoagulable state (history PE, factor V Leiden mutation as per records) on Coumadin, PFO, orthostatic hypotension as per records, IBS, gastroparesis, myotonic dystrophy, borderline personality disorder, anxiety/mood disorder, history of traumatic brain injury, sacroiliitis, prediabetes, chronic thrombocytopenia. Last confinement November 2022 for respiratory failure secondary to post colonoscopy aspiration pneumonia. Patient found on the floor at home today by . Patient noted to be obtunded and covered with emesis. Patient made marijuana cookies at home for the first time last night and consumed about 10 cookies as per . Initial O2 sats upon arrival at the ER 80s. Patient with recurrent emesis at the ER. Patient subsequently intubated. Ceftriaxone and Flagyl administered at the ER. 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 failure Aspiration pneumonia S/p tracheostomy Hx of myotonic dystrophy, gastroparesis, dysphagia Discharge Exam General - young F, sedated, s/p trach, on high flow Lungs - + course breath sounds b/l Heart - normal rate, regular rhythm; no murmurs Abdomen - normal bowel sounds, nondistended, soft, + bowel sounds Extremities- no pretibial edema Neuro- awake, and cooperative, nods appropriately, moves extremities Skin- warm & dry Discharge Data Allergies Allergy/AdvReac Type Severity Reaction Status Date / Time hydrocodone Allergy Severe EDEMA Verified 02/06/23 17:37 FACE, LIPS, TONGUE mushroom Allergy Intermediate NAUSEA/VOMI Verified 02/06/23 17:37 TING Penicillins Allergy Intermediate EDEMA Verified 02/06/23 17:37 azithromycin AdvReac Severe NAUSEA/VOMI Verified 02/06/23 17:37 TING chicken derived AdvReac Intermediate DIARRHEA/NA Verified 02/06/23 17:37 USEA/VOMITI NG mivacurium AdvReac Intermediate VOMITING Verified 02/06/23 17:37 [facility] MED LIST mold AdvReac Intermediate NAUSEA/VOMI Verified 02/06/23 17:37 TING cabbage AdvReac Unknown Unknown Verified 02/07/23 10:24 Consultations 02/06/23 19:20 ED Decision to Admit Stat 02/06/23 22:25 Consult Barber Shop Manager Routine 02/06/23 22:52 Consult Behavioral Health Liaison Routine 02/11/23 10:50 Consult Otolaryngology (Head and Neck) Routine 02/16/23 08:09 Consult Gastroenterology Routine 02/16/23 10:51 Consult General Surgery Routine Procedures Performed Operation Date: 02/13/23 07:15 Actual Procedures p Tracheostomy(Not Applicable) - Gustavo Felton MD Ordered Studies 02/06/23 17:53 CT abd pelvis wo con Stat CT chest diagnostic wo con Stat FINDINGS: CHEST: Thyroid: Imaged portions of the thyroid gland are normal in size and attenuation. Thoracic aorta: The thoracic aorta is normal in caliber and demonstrates bovine variant arch anatomy. Heart: The heart is normal in size and without pericardial effusion. Lungs and pleural spaces: Evaluation of the lung parenchyma is degraded by motion artifact. An endotracheal tube has been placed. The tip extends into the right mainstem bronchus and repositioning is indicated. There is trace left pleural effusion. There is multifocal airspace consolidation seen throughout both lungs. Secretions are noted in the trachea. Mediastinum: There is no mediastinal lymphadenopathy. Daisy: Not well assessed without contrast. Axillae: There is no axillary lymphadenopathy. Bony thorax: The skeletal structures are osteopenic. No lytic or blastic lesions are identified. ABDOMEN AND PELVIS: Liver: The unenhanced liver is normal in size, contour, and attenuation. There is no intrahepatic biliary ductal dilatation. Gallbladder: Surgically absent noting clips in the gallbladder fossa. Spleen: Normal in size and attenuation. Pancreas: The unenhanced pancreas is grossly unremarkable. Adrenal glands: Unremarkable. Kidneys: The unenhanced kidneys are normal in size and without hydronephrosis. No renal calculi are identified. There is no evidence of contour deforming mass lesion. Abdominal vasculature: The abdominal aorta is normal in course and caliber. A right femoral central venous catheter is in place. Stomach and bowel: An enteric tube has been placed. The tip extends below the diaphragm into the distal stomach. There is mild colonic fecal retention. No bowel obstruction is seen. The cecum is located in the pelvis. A small amount of enteric contrast is suggested in the stomach and duodenum. The appendix is well-visualized and normal. Peritoneum: There is no intraperitoneal free air or abdominal ascites. There is a fat-containing umbilical hernia. Lymphadenopathy: None. Pelvic viscera: The bladder is decompressed around a Worthy catheter and could not be evaluated. The uterus and adnexa are normal as visualized. Skeletal structures: The skeletal structures are osteopenic. No lytic or blastic lesions are seen. IMPRESSION: 1. Suboptimal examinations without oral and IV contrast. There is also significant streak and motion artifact. 2. Lines and tubes as above. The tip of the endotracheal tube extends into the right mainstem bronchus and repositioning is indicated. 3. Multifocal airspace consolidation is seen throughout both lungs, and is typical for pneumonia. Clinical correlation will be required and radiographic follow-up to resolution is recommended. 4. Trace left pleural effusion. 5. No acute infectious or inflammatory findings are identified in the abdomen or pelvis. 6. Additional findings as above. CT head/brain wo con Stat FINDINGS: Brain parenchyma: There is age advanced involutional change noting significant white matter disease. This is similar to previous. There is no hemorrhage, mass effect, or evidence of acute territorial ischemia by CT criteria. Bennett-white matter differentiation is preserved. No extra-axial fluid collection is seen. Ventricles, sulci, cisterns: Prominent secondary to involutional change. Intracranial vasculature: There is atherosclerotic calcification of the cavernous carotid arteries. Calvarium: Unremarkable. Sinuses and mastoids: There is trace mucosal thickening within the maxillary antra. Moderate mucosal thickening is seen within the ethmoid sinuses. The mastoid air cells are well pneumatized. Orbits: The bony orbits are grossly intact. There are bilateral ocular lens implants. IMPRESSION: There is no hemorrhage, mass effect, or evidence of acute territorial ischemia by CT criteria. 02/06/23 22:08 US venous doppler LE BI Stat FINDINGS: There is no sonographic evidence of deep venous thrombosis identified in the right or left lower extremity. The common femoral, superficial femoral, and popliteal veins are patent and normally compressible bilaterally. The greater saphenous vein and the profunda femoris vein at the junction with the common femoral vein are clear in both legs. The visualized calf veins are patent bilaterally. IMPRESSION: There is no sonographic evidence of deep venous thrombosis identified in the right or left lower extremity. 02/07/23 11:30 CT for pulmonary embolism PE [CT angio chest PE protocol] Routine FINDINGS: Endotracheal tube is approximately 5 mm above the bernadette. This should be pulled back by approximately 2 cm. A nasogastric tube is seen below the level the diaphragm. The tip is not included on this study. The visualized liver and spleen are unremarkable. Normal thyroid gland. The heart is borderline enlarged. Trace bilateral pleural effusions are noted. No significant pericardial effus ion. Normal caliber esophagus. No mediastinal or hilar lymphadenopathy. No acute fractures identified within the chest. Normal caliber thoracic aorta with no evidence for a dissection. Suboptimal evaluation of the bibasilar subsegmental pulmonary arteries due to the motion artifact and consolidation. However, no definite filling defects within the pulmonary arteries to suggest a pulmonary embolus. No pneumothorax. There are a few partially opacified bilateral lower lobe bronchi. Dense consolidation seen within the bases of the bilateral lower lobes. There are additional scattered patchy airspace opacities seen throughout the lungs. Findings likely represent a multifocal pneumonia and could be due to aspiration. IMPRESSION: 1. No evidence for a pulmonary embolus. 2. The endotracheal tube terminates 5 mm from the bernadette. This should be pulled back by approximately 2 cm. 3. Multifocal airspace opacities with dense consolidation within the base of the bilateral lower lobes. This likely represents a pneumonia and could be due to aspiration. 4. The heart is borderline enlarged. 5. Trace bilateral pleural effusions 02/16/23 12:19 US liver Routine FINDINGS: The liver is diffusely echogenic in appearance with poor ultrasound penetration, with normal contour, which is consistent with fatty infiltration. No focal mass lesions are seen. No intrahepatic ductal dilatation is seen. Patient is status post cholecystectomy. The common duct measures 0.5 cm in diameter at the level of the hepatic artery. The visualized portions of the pancreas appear normal. The right kidney shows normal echogenicity, cortical thickness and renal contour. The right kidney shows no evidence of hydronephrosis or mass. No ascites or free fluid is seen in Brewer's pouch. IMPRESSION: Hepatic steatosis without other acute abnormality. Hospital Course (1) Respiratory failure: Acute hypoxic respiratory failure Secondary to aspiration pneumonia Recent consumption of marijuana cookies, hx IBS/gastroparesis -- Initially intubated, sedated --02/08: Status post bronchoscopy Fiberoptic bronchoscopy was performed via endotracheal tube. Bronchioalveolar lavage of the left lower lobe was performed. Findings included: Mucopurulent secretions suctioned predominantly from the left lower lobe. [place] appearance. No significant hyponatremia in the airways. 02/11 pt extubated and required re-intubation -> plan for trach, ENT consulted Still having low grade fever 02/13 S/p tracheostomy this AM Cont. to have low grade fever 02/14 Awake and cooperative, s/p trach on vent. Afebrile today. -- Blood cultures: 02/06/23 coag neg staph. x2 - possible contaminant ? -- Repeat blood cultx 02/08/23 - Negative so far Sputum culture: Angelita albicans (rare) Bronchial lavage left lower lobe cultures: Angelita albicans (rare) - likely colonizer and no need to treat - discussed w/ circular saw operator --Finished Zosyn IV on 02/16/23 Will need PEG tube / G-J tube placed. Unsuccessful PEG tube placement in the past. Discussed this with GI. IR unable to place here/ this hospital. Surgery also consulted and recommend transfer to tertiary center for J-tube placement. Contacted [facility] (as pt follows w/ neurology and GI there) and pt will be transferred there for J-tube placement. Hypercoagulable state (history PE, factor V Leiden mutation as per records) on Coumadin, INR subtherapeutic --Currently on heparin drip Hx orthostatic hypotension as per records, patient not currently on prior midodrine Rx --Monitor blood pressure Hx myotonic dystrophy (follows w/ neurology at [facility]) Borderline personality disorder/anxiety/mood disorder History of traumatic brain injury Prediabetes, current hemoglobin A1c of 5.7 Transaminitis, possible fatty liver disease with note of hepatic change in outpatient CT abdomen pelvis October 2022 Hepatitis panel obtained and negative Chronic thrombocytopenia - cont. to monitor DVT prophylaxis. Heparin drip GI prophylaxis. Famotidine Full code Disposition: ICU - plan to transfer to [facility] for J-tube placement Pt Lives at home with her Total Time Total Time Spent Total Time Spent (In Minutes): 40 Discharge Plan Discharge Items Patient Disposition: Transfer Acute Care Hospital Reason For Visit: RESP FAILURE Discharge Diagnosis: Acute resp. failure Aspiration pneumonia S/p tracheostomy Hx of myotonic dystrophy, gastroparesis, dysphagia Activity: Per Instructions section Non-emergency contact: Primary Care Provider, Inspector Hairspring Truing and Machine Operator Hop Picker Call non-emergency contact if: you have any medication questions and your symptoms worsen Follow-up/Referrals: Chuckie Judge MD [Primary Care Provider] - Diet: Nothing by Mouth and Other - See Diet Comment Diet Comment: NG tube placed, in need of J-tube Addtl Attending Provider Instructions: Pt to be transferred to [facility] for J-tube placement. Pending Studies at Discharge: Yes Studies:: final cultx from bronchoscopy Stand-Alone Forms: My [facility] Skilled Items Patient informed of condition?: Yes DNR: No Discharge Level of Care: Other Communicable Disease: No Discharge Prognosis: Stable Lines: Peripheral IV Urinary Catheter: Yes Medications and DC Order Prescriptions: Continued warfarin 4 mg Tablet See Rx Instructions .ROUTE .COMPLEX Rx Instructions: TAKES 4 MG ON MON, WED, & FRI, THEN 8 MG ON SUN, TUES, THURS, & SAT. OF 01/27/23 PER [facility] MED LIST BY [facility]/ acetaminophen 500 mg Tablet 1,000 mg PO Q6H PRN (Reason: Pain) fluoxetine 20 mg capsule 20 mg PO QAM melatonin 10 mg Tablet 10 mg PO HS pregabalin 75 mg capsule 75 mg PO BID Rx Instructions: LAST FILLED 10/29/22 FOR 30 DAYS. Cbd Cream 1 applic PO TID PRN (Reason: Pain) ondansetron HCl [Zofran] 4 mg Tablet 4 mg PO Q8H PRN (Reason: NAUSEA/VOMITING) metoclopramide HCl 5 mg tablet 5 mg PO HS Discontinued Delta 8 Gummy 1 tab PO DAILY PRN (Reason: Pain) Discharge Orders: Discharge Order (Routine); Ordered 02/16/23 Ordered By: Troy P. Palepu Admission Data Admit Date/Time: 02/06/23 20:33 Attending Provider: Edwin Disla Admit Provider: Isael Domínguez Primary Care Provider: Chuckie Judge Other Providers: Isael Domínguez ; Jose Ramon Newell ; Shelton March ; Gustavo Felton ; Deandre Shukla ; Sadi Bardales ; Ángela Barnes ; Alicia Del Cid ; Yasmine De La Fuente ; Penelope Sullivan ; Ashleighmi,Luis Fernando ; Pablo Sosa ; Dg Beltran ; Dagoberto Crisostomo ; Jonn Bernardo ; Tamar Fonseca ; Tatiana Tomas ; Ruchi Diaz ; Riya Weller ; Kennedy Gutierrez ; Jeremiah Bender ; Marco Antonio Marks ; Carolyne Huitron ; Carlos Loja Jr ; Jacobo Shields ; Casper Bahena ; Aparna Samaniego ; Ivy Beltran ; Benitez Ronquillo ; Desmond Bethea ; Shagufta Davenport ; Alicia Feldman ; Thierry Jimenez Jr ; Anita Shanks ; Tk Osborn ; Riya Perez Other Interventions: Discharge Summary Assessment (RN) Last Done: 02/16/23 20:54
[2023-02-16] MEDS ORDERED: STOP CLINOLIPID SCH (22:00)
== END 2023-02-16 20:58 | disposition short-term general hospital (02) | DRG 4 ==
LOC: ED 17:23 → 1E 20:33 → SUATTDRO 20:33 → 1E 21:47
PROC: M.TRACH (2023-02-13 07:15)